=== PATIENT | male | born 1965 | race Caucasian/White ===

== ENCOUNTER 2017-12-21 21:05 | Emergency (ER) | payer OTHER ==
[2017-12-21 21:11] VITALS: BP 140/80; PULSE 73; RESP 16; TEMP 98.3
--- NOTE | 2017-12-21 22:05 | ED ---
General Adult HPI - General Chief complaint: Skin/Abscess/Foreign Body Stated complaint: poison rochelle Time Seen by Provider: 12/21/17 21:43 Source: patient, RN notes reviewed Mode of arrival: ambulatory Limitations: no limitations - History of Present Illness Initial comments: 52-year-old male presents to the emergency department for a chief complaint of rash 3 days. Patient states he was outside working in the [employer] and believes he has poison rochelle. Patient states the rash has been itching and his right arm has been swollen since last night. Patient states it is also somewhat on his face and abdomen. Patient denies any swelling of the lips tongue or throat. Patient denies any wheezing or difficulty breathing. Patient denies any fevers or chills at home. Patient has no other complaints at this time including shortness of breath, chest pain, abdominal pain, nausea or vomiting, headache, or visual changes. - Related Data Previous Rx's Medication Instructions Recorded Calamine/Zinc Oxide Lotion 1 applic TOPICAL TID PRN 14 Days 12/21/17 [Calamine Lotion] #1 bottle Cetirizine HCl [Zyrtec] 10 mg PO DAILY PRN #20 tab 12/21/17 hydrOXYzine HCL [Atarax] 25 mg PO HS PRN #20 tab 12/21/17 predniSONE See Taper PO DAILY 14 Days tablet 12/21/17 Allergies Allergy/AdvReac Type Severity Reaction Status Date / Time amoxicillin Allergy Rash/Hives Verified 12/21/17 21:11 Review of Systems ROS Statement: Those systems with pertinent positive or pertinent negative responses have been documented in the HPI. ROS Other: All systems not noted in ROS Statement are negative. Past Medical History Past Medical History: Hypertension History of Any Multi-Drug Resistant Organisms: None Reported Past Surgical History: No Surgical Hx Reported Past Psychological History: No Psychological Hx Reported Smoking Status: Current some day smoker Past Alcohol Use History: None Reported Past Drug Use History: None Reported General Exam Limitations: no limitations General appearance: alert, in no apparent distress Respiratory exam: Present: normal lung sounds bilaterally. Absent: respiratory distress, wheezes, rales, rhonchi, stridor Cardiovascular Exam: Present: regular rate, normal rhythm, normal heart sounds. Absent: systolic murmur, diastolic murmur, rubs, gallop, clicks Extremities exam: Present: full ROM (full ROM of right arm), normal capillary refill (Refill less than 2 seconds and radial pulse 2+ in the left upper extremity.). Absent: tenderness (no tenderness to the R arm.) Skin exam: Present: rash (Patient has a vesicular mildly edematous rash on the left forearm extending from below the elbow to above the wrist. Patient also has the vesicular lei bilateral cheeks and belt line. No erythema, spreading redness, or cellulitic changes noted. No purulent drainage or abscess. No signs of infection. ) Course Vital Signs 12/21/17 21:08 Temperature 98.3 F Pulse Rate 73 Respiratory 16 Rate Blood Pressure 140/80 O2 Sat by Pulse 97 Oximetry Medical Decision Making - Medical Decision Making 52-year-old male presents to the emergency determine for a chief complaint of poison rochelle 3 days. Patient states his right arm is slightly swollen. Patient states it has been itching. Patient denies any fevers or chills at home. Patient denies any purulent drainage from the right arm. The rash on the arms extends from below the elbow to above the right wrist. It is vesicular in appearance. Patient has full ROM of Right arm. There is no erythema, spreading redness, cellulitic changes, purulent drainage, or signs of infection noted on the right arm, face, or abdomen. Patient will be treated with the prednisone taper, antihistamines, and Calamine lotion. He was educated to monitor closely for any signs of infection or spreading redness, fever, or purulent drainage and to return if these occur. He will follow up with primary care in 1-2 days. Disposition Clinical Impression: Poison rochelle Disposition: HOME SELF-CARE Condition: Good Instructions: Poison Rochelle (ED) Additional Instructions: Please take prescription as directed. Please monitor for any worsening symptoms or signs of infection. Return to the emergency department if you notice any of these. Otherwise follow-up with primary care in 1-2 days. Prescriptions: Calamine/Zinc Oxide Lotion [Calamine Lotion] 1 applic TOPICAL TID PRN 14 Days # 1 bottle PRN Reason: Itching Cetirizine HCl [Zyrtec] 10 mg PO DAILY PRN #20 tab PRN Reason: Itching hydrOXYzine HCL [Atarax] 25 mg PO HS PRN #20 tab PRN Reason: Itching predniSONE See Taper PO DAILY 14 Days tablet Is patient prescribed a controlled substance at d/c from ED?: No Referrals: Cj Malloy MD [Primary Care Provider] - 1-2 days Time of Disposition: 22:01
== END 2017-12-21 22:50 | disposition home or self-care (01) ==
LOC: EC 21:05
DX: L23.7 Allergic contact dermatitis due to plants, except food (principal); F17.200 Nicotine dependence, unspecified, uncomplicated; Z88.0 Allergy status to penicillin
CPT/HCPCS: 99282

== ENCOUNTER 2019-05-30 11:12 | Day surgery (SDC) | payer BC, OTHER ==
[2019-05-30 11:37] VITALS: RESP 18; TEMP 98.3
[2019-05-30] MEDS ORDERED: LACTATED RINGERS 1,000 ML IV SCH (11:40)
[2019-05-30] MEDS ORDERED: LIDOCAINE 1% 20 ML VIAL (10MG/ML) FOR IV START INTRADERMA PRN (11:40)
[2019-05-30 11:52] VITALS: BMI 35.3
[2019-05-30] MEDS ORDERED: LIDOCAINE 1% 20 ML VIAL (10MG/ML) FOR IV START INTRADERMA ONE (11:52)
[2019-05-30] MEDS ORDERED: PROPOFOL 10 MG/ML 20 ML VIAL IV ONE (12:19)
--- NOTE | 2019-05-30 12:50 | P.PCN ---
Date of Procedure: 05/30/19 Description of Procedure: BRIEF HISTORY: Patient is a 54-year-old pleasant male scheduled for an elective colonoscopy as a part of screening for malignant neoplasm colon. No prior colonoscopy reported. No change in bowel habits, blood per rectum, abdominal pain or family history of colon cancer. PROCEDURE PERFORMED: Colonoscopy. PREOPERATIVE DIAGNOSIS: Screening for malignant neoplasm of the colon, no prior colonoscopy reported. ESTIMATED BLOOD LOSS: Minimal. IV sedation per Anesthesia. PROCEDURE: After informed consent was obtained, the patient, was brought into the endoscopy unit. IV sedation was administered by Anesthesia under continuous monitoring. Digital rectal examination was normal. Initially the Olympus CF-190 flexible video colonoscope was then inserted in the rectum, gradually advanced into the cecum without any difficulty. Careful examination was performed as the scope was gradually being withdrawn. Ileocecal valve and the appendiceal orifice were visualized and appeared normal. Prep was excellent. Mucosa of the cecum, ascending colon, transverse colon, descending colon, sigmoid colon, and rectum appeared normal. Diminutive 2 mm transverse colon polyp removed with cold forcep polypectomy. Diminutive 3 mm rectal polyp removed with cold forcep polypectomy. Flat irregular appearing fold completely removed with cold forcep polypectomy. Retroflexion was performed in the rectum and no lesions were seen. The patient tolerated the procedure well. IMPRESSION: Normal-appearing colon from rectum to cecum. 2 diminutive polyps from the transverse colon and rectum removed with cold forcep polypectomy. Irregular appearing fold completely removed with cold forcep polypectomy. RECOMMENDATIONS: Findings of this examination were discussed with the patient and his . Okay to resume diet. Okay to resume medications. Anticipate repeat colonoscopy in 3-5 years pending pathology from polypectomies and biopsies of fold.
[2019-05-30 13:05] VITALS: BP 116/75; PULSE 74
== END 2019-05-30 13:18 | disposition home or self-care (01) ==
LOC: ORWHC2ENDO 11:12
PROVIDERS: ATTEND Internal Medicine
DX: Z12.11 Encounter for screening for malignant neoplasm of colon (principal); D12.3 Benign neoplasm of transverse colon; D12.8 Benign neoplasm of rectum; K63.5 Polyp of colon; I10 Essential (primary) hypertension; F17.210 Nicotine dependence, cigarettes, uncomplicated; Z88.0 Allergy status to penicillin; Z79.899 Other long term (current) drug therapy; Z98.818 Other dental procedure status
CPT/HCPCS: 88305; 45380; J2704

== ENCOUNTER 2019-07-11 06:13 | Inpatient (IN) | payer BC, OTHER ==
[2019-07-11] MEDS ORDERED: SODIUM CHLORIDE 0.9% 500 ML 500 ML IV STA (06:33)
[2019-07-11] MEDS ORDERED: HYDROmorphone 0.5 MG/0.5 ML SYRINGE IVP STA ×2 (06:37→07:53)
--- NOTE | 2019-07-11 06:39 | ED ---
General Adult HPI - General Source: patient, RN notes reviewed Mode of arrival: ambulatory Limitations: no limitations <Juventino Franco - Last Filed: 07/11/19 07:56> <Sofia Singh - Last Filed: 07/11/19 22:48> - General Chief complaint: Abdominal Pain Stated complaint: NVD Time Seen by Provider: 07/11/19 06:25 - History of Present Illness Initial comments: 54-year-old male with a past medical history of hypertension presents to the emergency department for a chief complaint of epigastric pain. Patient states this started about 1.5 hours prior to arrival. States he does have associated nausea with this. States he has never had a pain like this before. He denies diarrhea. States his sharp squeezing pain. States it is hard to take a deep breath because of the pain.Patient has no other complaints at this time including shortness of breath, chest pain, headache, or visual changes. (Juventino Soler) - Related Data Home Medications Medication Instructions Recorded Confirmed Lisinopril-Hctz 10-12.5 mg 1 tab PO DAILY 05/30/19 07/11/19 [Zestoretic 10-12.5] Multivitamins, Thera [Multivitamin 1 tab PO DAILY 07/11/19 07/11/19 (formulary)] Allergies Allergy/AdvReac Type Severity Reaction Status Date / Time amoxicillin Allergy Rash/Hives Verified 07/11/19 08:00 Review of Systems ROS Other: All systems not noted in ROS Statement are negative. <Juventino Franco - Last Filed: 07/11/19 07:56> ROS Other: All systems not noted in ROS Statement are negative. <Sofia Singh - Last Filed: 07/11/19 22:48> ROS Statement: Those systems with pertinent positive or pertinent negative responses have been documented in the HPI. Past Medical History Past Medical History: Hearing Disorder / Deafness, Hypertension Additional Past Medical History / Comment(s): HAD A HEART MURMUR WHEN A CHILD- NEVER HEARD ANYTHING AFTER THAT ABOUT IT, SL. HEARLING LOSS YAMILA. EARS History of Any Multi-Drug Resistant Organisms: None Reported Past Surgical History: No Surgical Hx Reported Additional Past Surgical History / Comment(s): TEETH PULLED W/O SEDATION SEVERAL TIMES THROUGHOUT THE YEARS Past Psychological History: No Psychological Hx Reported Smoking Status: Current some day smoker Past Alcohol Use History: Occasional Past Drug Use History: None Reported <SalvadorJuventino ríos P - Last Filed: 07/11/19 07:56> General Exam Limitations: no limitations General appearance: alert Head exam: Present: atraumatic, normocephalic, normal inspection Eye exam: Present: normal appearance, PERRL, EOMI. Absent: scleral icterus, conjunctival injection, periorbital swelling ENT exam: Present: normal exam, mucous membranes moist Neck exam: Present: normal inspection, full ROM. Absent: tenderness, meningismus, lymphadenopathy Respiratory exam: Present: normal lung sounds bilaterally. Absent: respiratory distress, wheezes, rales, rhonchi, stridor Cardiovascular Exam: Present: regular rate, normal rhythm, normal heart sounds. Absent: systolic murmur, diastolic murmur, rubs, gallop, clicks GI/Abdominal exam: Present: soft, normal bowel sounds. Absent: distended, tenderness, guarding, rebound, rigid Neurological exam: Present: alert Psychiatric exam: Present: normal affect, normal mood <SalvadorKearaJuventino P - Last Filed: 07/11/19 07:56> Course <SalvadorJuventino P - Last Filed: 07/11/19 07:56> Vital Signs 07/11/19 07/11/19 07/11/19 06:16 07:00 07:45 Temperature 98.5 F Pulse Rate 91 82 Respiratory 30 H 24 Rate Blood Pressure 176/154 141/88 O2 Sat by Pulse 94 L 96 96 Oximetry 07/11/19 07/11/19 07/11/19 08:00 08:32 09:00 Temperature 97.6 F Pulse Rate 73 70 66 Respiratory 22 22 20 Rate Blood Pressure 137/90 126/81 122/81 O2 Sat by Pulse 96 96 96 Oximetry 07/11/19 11:00 Temperature Pulse Rate 63 Respiratory 18 Rate Blood Pressure 124/77 O2 Sat by Pulse 97 Oximetry - Reevaluation(s) Reevaluation #1: 07/11/19 5041 patient was evaluated immediately upon arrival. Patient is in distress rating pain a 10 out of 10. Epigastric pain radiating into the chest. Patient is very diaphoretic and clammy, cannot obtain EKG because stickers will not adhere. abdomen is rigid. Patient stating he cannot breathe because of the discomfort radiating to his chest. Discussed this case with Dr. Vázquez, at this time given the patient's degree of distress as well as diaphoresis and epigastric pain radiating into the chest CTA was ordered to rule out dissection. (Juventino Franco) EKG Findings - EKG Comments: EKG Findings:: normal sinus rhythm, ventricular rate 79, NJ interval 156, QTc 467 <Juventino Franco - Last Filed: 07/11/19 07:56> Medical Decision Making - Lab Data Result diagrams: 07/11/19 06:30 07/11/19 06:30 <Juventino Franco - Last Filed: 07/11/19 07:56> - Lab Data Result diagrams: 07/11/19 06:30 07/11/19 06:30 <Sofia Singh - Last Filed: 07/11/19 22:48> - Medical Decision Making Patient arrived very diaphoretic, hypertensive and in distress with a rigid abdomen and chest pain. CTA was ordered to rule out dissection.CT abdomen and pelvis shows moderate. Pancreatic fat stranding/fluid suggestive of acute pancreatitis. No fluid collection. There is cholelithiasis in a distended gallbladder was called but her wall thickening and edema. Could be reactive to adjacent pancreatic pathology however findings are concerning for concurrent acute cholecystitis. This is consistent with patient's laboratory workup a white count of 13, transaminitis, hyperbilirubinemia, and a lipase of greater than 20,000 with an amylase of 2794. Troponin negative. EKG unremarkable. Patient has a penicillin ALLERGY, was started on Flagyl and Rocephin.ultrasound will be ordered for the floor. (Juventino Franco) I was available for consultation in the emergency department. The history and physical exam were done by the midlevel provider. I was consulted for this patients care. I reviewed the case with the midlevel provider and based on their presentation of the patient, I agree with the assessment, medical decision making and plan of care as documented. I agreed with hospital admission. I discussed the case with Dr. Lopez who accepted admission with GI and surgery to consult. Chart was dictated using [employer]rap[employer] dictation software. Attempts were made to correct any dictation errors however some typographical errors may persist. (Sofia Singh) - Lab Data Lab Results 07/11/19 07/11/19 07/11/19 Range/Units 06:30 06:30 06:30 WBC 13.0 H (3.8-10.6) k/uL RBC 5.75 (4.30-5.90) m/uL Hgb 18.4 H (13.0-17.5) gm/dL Hct 53.4 H (39.0-53.0) % MCV 93.0 (80.0-100.0) fL MCH 31.9 (25.0-35.0) pg MCHC 34.4 (31.0-37.0) g/dL RDW 12.9 (11.5-15.5) % Plt Count 259 (150-450) k/uL Neutrophils % 65 % Lymphocytes % 26 % Monocytes % 6 % Eosinophils % 2 % Basophils % 0 % Neutrophils # 8.5 H (1.3-7.7) k/uL Lymphocytes # 3.4 (1.0-4.8) k/uL Monocytes # 0.7 (0-1.0) k/uL Eosinophils # 0.2 (0-0.7) k/uL Basophils # 0.1 (0-0.2) k/uL PT 9.7 (9.0-12.0) sec INR 0.9 (<1.2) APTT 19.2 L (22.0-30.0) sec Sodium 143 (137-145) mmol/L Potassium 4.3 (3.5-5.1) mmol/L Chloride 107 (98-107) mmol/L Carbon Dioxide 22 (22-30) mmol/L Anion Gap 14 mmol/L BUN 25 H (9-20) mg/dL Creatinine 1.16 (0.66-1.25) mg/dL Est GFR (CKD-EPI)AfAm 83 (>60 ml/min/1.73 sqM) Est GFR (CKD-EPI)NonAf 72 (>60 ml/min/1.73 sqM) Glucose 200 H (74-99) mg/dL Calcium 9.9 (8.4-10.2) mg/dL Magnesium 2.3 (1.6-2.3) mg/dL Total Bilirubin 2.9 H (0.2-1.3) mg/dL AST 440 H (17-59) U/L ALT 574 H (21-72) U/L Alkaline Phosphatase 110 (38-126) U/L Troponin I (0.000-0.034) ng/mL NT-Pro-B Natriuret Pep pg/mL Total Protein 7.4 (6.3-8.2) g/dL Albumin 4.8 (3.5-5.0) g/dL Amylase 2794 H* (30-110) U/L Lipase >73544 H (23-300) U/L 07/11/19 07/11/19 Range/Units 06:30 06:30 WBC (3.8-10.6) k/uL RBC (4.30-5.90) m/uL Hgb (13.0-17.5) gm/dL Hct (39.0-53.0) % MCV (80.0-100.0) fL MCH (25.0-35.0) pg MCHC (31.0-37.0) g/dL RDW (11.5-15.5) % Plt Count (150-450) k/uL Neutrophils % % Lymphocytes % % Monocytes % % Eosinophils % % Basophils % % Neutrophils # (1.3-7.7) k/uL Lymphocytes # (1.0-4.8) k/uL Monocytes # (0-1.0) k/uL Eosinophils # (0-0.7) k/uL Basophils # (0-0.2) k/uL PT (9.0-12.0) sec INR (<1.2) APTT (22.0-30.0) sec Sodium (137-145) mmol/L Potassium (3.5-5.1) mmol/L Chloride (98-107) mmol/L Carbon Dioxide (22-30) mmol/L Anion Gap mmol/L BUN (9-20) mg/dL Creatinine (0.66-1.25) mg/dL Est GFR (CKD-EPI)AfAm (>60 ml/min/1.73 sqM) Est GFR (CKD-EPI)NonAf (>60 ml/min/1.73 sqM) Glucose (74-99) mg/dL Calcium (8.4-10.2) mg/dL Magnesium (1.6-2.3) mg/dL Total Bilirubin (0.2-1.3) mg/dL AST (17-59) U/L ALT (21-72) U/L Alkaline Phosphatase (38-126) U/L Troponin I <0.012 (0.000-0.034) ng/mL NT-Pro-B Natriuret Pep 1040 pg/mL Total Protein (6.3-8.2) g/dL Albumin (3.5-5.0) g/dL Amylase (30-110) U/L Lipase (23-300) U/L Disposition Is patient prescribed a controlled substance at d/c from ED?: No Time of Disposition: 07:48 <Juventino Franco P - Last Filed: 07/11/19 07:56> <Sofia Singh - Last Filed: 07/11/19 22:48> Clinical Impression: Pancreatitis Disposition: ADMITTED IP TO THIS HOSP Condition: Fair
[2019-07-11 06:52] LABS: Basophils # (A) 0.1 k/uL (0-0.2); Basophils % (A) 0 %; Eosinophils # (A) 0.2 k/uL (0-0.7); Eosinophils % (A) 2 %; HCT 53.4 % (39.0-53.0); HGB 18.4 gm/dL (13.0-17.5); Lymphocytes # (A) 3.4 k/uL (1.0-4.8); Lymphocytes % (A) 26 %; MCH 31.9 pg (25.0-35.0); MCHC 34.4 g/dL (31.0-37.0); Mean Platelet Volume 7.7; Monocytes # (A) 0.7 k/uL (0-1.0); Monocytes % (A) 6 %; Neutrophils # (A) 8.5 k/uL (1.3-7.7); Neutrophils % (A) 65 %; Platelet Count 259 k/uL (150-450); RBC 5.75 m/uL (4.30-5.90); RDW 12.9 % (11.5-15.5)
[2019-07-11 06:56] LABS: INR 0.9 (<1.2); Prothrombin Time 9.7 sec (9.0-12.0)
[2019-07-11 06:57] LABS: ALT 574 U/L (21-72); AST 440 U/L (17-59); African American GFR (CKD) 83 (>60 ml/min/1.73 sqM); Albumin 4.8 g/dL (3.5-5.0); Alkaline Phosphatase 110 U/L (38-126); Anion Gap 14 mmol/L; Blood Urea Nitrogen 25 mg/dL (9-20); Calcium 9.9 mg/dL (8.4-10.2); Carbon Dioxide 22 mmol/L (22-30); Chloride 107 mmol/L (98-107); Glucose 200 mg/dL (74-99); Magnesium 2.3 mg/dL (1.6-2.3); Non-African American GFR(CKD) 72 (>60 ml/min/1.73 sqM); Potassium 4.3 mmol/L (3.5-5.1); Sodium 143 mmol/L (137-145); Total Bilirubin 2.9 mg/dL (0.2-1.3); Total Protein 7.4 g/dL (6.3-8.2)
[2019-07-11] MEDS ORDERED: ONDANSETRON 4 MG/2 ML VIAL IVP STA (07:07)
[2019-07-11 07:21] LABS: Partial Thromboplastin Time 19.2 sec (22.0-30.0)
[2019-07-11] MEDS ORDERED: SODIUM CHLORIDE 0.9% 1,000 ML IV STA (07:26)
--- NOTE | 2019-07-11 07:26 | CT ---
EXAM: CT Angiography Chest Without and With Intravenous Contrast CLINICAL HISTORY: epigastric pain TECHNIQUE: Axial computed tomographic angiography images of the chest without and with intravenous contrast. CTDI is 57.584 mGy and DLP is 2599.8 mGy-cm. This CT exam was performed using one or more of the following dose reduction techniques: automated exposure control, adjustment of the mA and/or kV according to patient size, and/or use of iterative reconstruction technique. 3D and MIP reconstructed images were created and reviewed. COMPARISON: No relevant prior studies available. FINDINGS: Pulmonary arteries: Unremarkable. No pulmonary embolism. Aorta: No acute findings. No thoracic aortic aneurysm. Lungs: Linear atelectasis involving the left lower lobe. No mass. Pleural space: Unremarkable. No significant effusion. No pneumothorax. Heart: Unremarkable. No cardiomegaly. No significant pericardial effusion. No evidence of RV dysfunction. Mediastinum: Small hiatal hernia. Bones/joints: No acute fracture. No dislocation. Soft tissues: Bilateral gynecomastia. Lymph nodes: Unremarkable. No enlarged lymph nodes. IMPRESSION: No acute findings in the visualized arteries of the chest. EXAM: CT Angiography Abdomen and Pelvis Without and With Intravenous Contrast CLINICAL HISTORY: epigastric pain TECHNIQUE: Axial computed tomographic angiography images of the abdomen and pelvis without and with intravenous contrast. CTDI is 57.584 mGy and DLP is 2599.8 mGy-cm. This CT exam was performed using one or more of the following dose reduction techniques: automated exposure control, adjustment of the mA and/or kV according to patient size, and/or use of iterative reconstruction technique. 3D and MIP reconstructed images were created and reviewed. COMPARISON: No relevant prior studies available. FINDINGS: VASCULATURE: Aorta: No acute findings. No abdominal aortic aneurysm. No dissection. Celiac trunk and mesenteric arteries: No acute findings. No occlusion or significant stenosis. Renal arteries: No acute findings. No occlusion or significant stenosis. Iliac arteries: No acute findings. No occlusion or significant stenosis. ABDOMEN: Liver: Unremarkable. No mass. Gallbladder and bile ducts: Cholelithiasis in a distended gallbladder with gallbladder wall thickening/edema. While this may be reactive to the adjacent pancreatic pathology, findings are concerning for concurrent acute cholecystitis. No ductal dilation. Pancreas: Moderate peripancreatic fat stranding/fluid suggestive of acute pancreatitis. No ductal dilation. Spleen: Spleen is at upper limits of normal, of unknown significance. Adrenals: Unremarkable. No mass. Kidneys and ureters: A 2 mm nonobstructing stone is seen in the lower pole of the right kidney. Stomach and bowel: Unremarkable. No obstruction. No mucosal thickening. PELVIS: Appendix: No findings to suggest acute appendicitis. Bladder: Unremarkable. No stones. No mass. Reproductive: Unremarkable as visualized. ABDOMEN and PELVIS: Intraperitoneal space: Unremarkable. No significant fluid collection. No free air. Bones/joints: No acute fracture. No dislocation. Soft tissues: Unremarkable. Lymph nodes: Unremarkable. No enlarged lymph nodes. IMPRESSION: 1. Moderate peripancreatic fat stranding/fluid suggestive of acute pancreatitis. No fluid collection. 2. Cholelithiasis in a distended gallbladder with gallbladder wall thickening/edema. While this may be reactive to the adjacent pancreatic pathology, findings are concerning for concurrent acute cholecystitis. Correlate clinically. <MYCVCSECTION> Communications: 07/11/19 07:11 Call Doctor Regarding Other, called ARRON Jauregui on 07/11 07: 11 (-05:00)
[2019-07-11 07:37] LABS: Amylase 2794 U/L (30-110)
[2019-07-11] MEDS ORDERED: KETOROLAC 30 MG/ML 1 ML VIAL IVP STA (07:52)
[2019-07-11] MEDS ORDERED: NALOXONE 0.4 MG/ML 1 ML VIAL IV PRN (07:53)
[2019-07-11] MEDS ORDERED: HYDROmorphone 0.5 MG/0.5 ML SYRINGE IVP PRN (07:53)
[2019-07-11] MEDS: SODIUM CHLORIDE 0.9% 1,000 ML IV SCH ×3 (08:09→23:39)
--- NOTE | 2019-07-11 09:01 | US ---
EXAMINATION TYPE: US abdomen limited DATE OF EXAM: 07/11/2019 COMPARISON: NONE CLINICAL HISTORY: RUQ, GB. EXAM MEASUREMENTS: Liver Length: 17.4 cm Gallbladder Wall: 0.8 cm CBD: 0.5 cm Right Kidney: unable to visualize well enough to measure due to overlying bowel gas Patient in pain and unable to cooperate with examiner. Only able to visualize organs intercostal. Pancreas: Obscured by bowel gas Liver: very limited visualization, upper limits of normal in size and the echotexture is coarse Gallbladder: thickened edematous wall, stones, probable pericholecystic fluid noted adjacent. Evidence for sonographic Quezada's sign: patient in a lot of pain, hard to say where from specifica lly CBD: wnl Right Kidney: largely obscured by overlying bowel gas, very limited visualization IMPRESSION: Findings from CT confirmed, correlate for cholecystitis with cholelithiasis. Pancreas is obscured. Borderline enlarged liver, there may be a component of hepatocellular disease.
[2019-07-11] MEDS: metroNIDAZOLE-NS PMX 500 MG in SALINE 1 100ML.BAG IVPB SCH ×3 (09:02→23:37)
[2019-07-11] MEDS ORDERED: SODIUM CHLORIDE 0.9% 1,000 ML IV ONE (11:56)
[2019-07-11] MEDS: HYDROmorphone 0.5 MG/0.5 ML SYRINGE IVP PRN ×4 (12:11→21:09)
--- NOTE | 2019-07-11 14:47 | P.GSCN ---
History of Present Illness Consult date: 07/11/19 Reason for Consult: Possible acute cholecystitis Requesting physician: Juventino Franco History of present illness: CHIEF COMPLAINT: Abdominal pain HISTORY OF PRESENT ILLNESS: 54-year-old male who presented to the emergency room for chief complaint of abdominal pain. Patient reports the pain is located in the epigastric region and radiates to his back. He reports nausea. Denies emesis. Denies diarrhea or constipation. Denies fever or chills. PAST MEDICAL HISTORY: See list. PAST SURGICAL HISTORY: See list. SOCIAL HISTORY: No illicit drug use. REVIEW OF SYSTEMS: CONSTITUTIONAL: Denies fever or chills. HEENT: Denies blurred vision, vision changes, or eye pain. Denies hemoptysis CARDIOVASCULAR: Denies chest pain or pressure. RESPIRATORY: No shortness of breath. GASTROINTESTINAL: Refer to HPI for pertinent findings HEMATOLOGIC: Denies bleeding disorders. GENITOURINARY: Denies any blood in urine. SKIN: Denies pruitis. Denies rash. PHYSICAL EXAM: VITAL SIGNS: Reviewed. GENERAL: Well-developed in no acute distress. HEENT: No sclera icterus. Extraocular movements grossly intact. Moist buccal mucosa. Head is atraumatic, normocephalic. ABDOMEN: Soft. Nondistended. Tenderness on palpation of the epigastric region. No peritonitis. NEUROLOGIC: Alert and oriented. Cranial nerves II through XII grossly intact. LABORATORY DATA: WBC 13.0. Hemoglobin 18.4. Platelet count 259. Bilirubin 2.9. AST 440. ALT 574. Amylase 2794. Lipase greater than 20,000. IMAGING: Abdominal ultrasound: Thickened edematous gallbladder wall, cholelithiasis, probable pericholecystic fluid. Positive sonographic Quezada sign. ASSESSMENT: 1. Abdominal pain 2. Cholelithiasis, Possible choledocholithiasis 3. Pancreatitis 4. Hyperbilirubinemia 5. Transaminitis PLAN: -Nothing by mouth -1 L normal saline bolus -Increase IV fluids to 200 mL an hour -GI on consult. Anticipate MRCP/ERCP -Repeat CBC and CMP in a.m. -Continue IV antibiotics -Patient tentatively scheduled for laparoscopic cholecystectomy tomorrow pending laboratory values Nurse practitioner note has been reviewed by physician. Signing provider agrees with the documented findings, assessment, and plan of care. Past Medical History Past Medical History: Hearing Disorder / Deafness, Hypertension Additional Past Medical History / Comment(s): HAD A HEART MURMUR WHEN A CHILD- NEVER HEARD ANYTHING AFTER THAT ABOUT IT, SL. HEARLING LOSS YAMILA. EARS History of Any Multi-Drug Resistant Organisms: None Reported Past Surgical History: No Surgical Hx Reported Additional Past Surgical History / Comment(s): Colonoscopy with benign polypectomy Past Anesthesia/Blood Transfusion Reactions: No Reported Reaction Smoking Status: Current some day smoker - Past Family History Father Family Medical History: Coronary Artery Disease (CAD) Additional Family Medical History / Comment(s): Father had 4 vessel CABG Mother Family Medical History: Hypertension Medications and Allergies Home Medications Medication Instructions Recorded Confirmed Type Lisinopril-Hctz 10-12.5 mg 1 tab PO DAILY 05/30/19 07/11/19 History [Zestoretic 10-12.5] Multivitamins, Thera [Multivitamin 1 tab PO DAILY 07/11/19 07/11/19 History (formulary)] Allergies Allergy/AdvReac Type Severity Reaction Status Date / Time amoxicillin Allergy Rash/Hives Verified 07/11/19 08:00 Surgical - Exam Vital Signs Temp Pulse Resp BP Pulse Ox 98.5 F 91 30 H 176/154 94 L 07/11/19 06:16 07/11/19 06:16 07/11/19 06:16 07/11/19 06:16 07/11/19 06:16 Results - Labs 07/11/19 06:30 07/11/19 06:30 Abnormal Lab Results - Last 24 Hours (Table) 07/11/19 07/11/19 07/11/19 Range/Units 06:30 06:30 06:30 WBC 13.0 H (3.8-10.6) k/uL Hgb 18.4 H (13.0-17.5) gm/dL Hct 53.4 H (39.0-53.0) % Neutrophils # 8.5 H (1.3-7.7) k/uL APTT 19.2 L (22.0-30.0) sec BUN 25 H (9-20) mg/dL Glucose 200 H (74-99) mg/dL Total Bilirubin 2.9 H (0.2-1.3) mg/dL AST 440 H (17-59) U/L ALT 574 H (21-72) U/L Amylase 2794 H* (30-110) U/L Lipase >27939 H (23-300) U/L Diabetes panel 07/11/19 Range/Units 06:30 Sodium 143 (137-145) mmol/L Potassium 4.3 (3.5-5.1) mmol/L Chloride 107 (98-107) mmol/L Carbon Dioxide 22 (22-30) mmol/L BUN 25 H (9-20) mg/dL Creatinine 1.16 (0.66-1.25) mg/dL Glucose 200 H (74-99) mg/dL Calcium 9.9 (8.4-10.2) mg/dL AST 440 H (17-59) U/L ALT 574 H (21-72) U/L Alkaline Phosphatase 110 (38-126) U/L Total Protein 7.4 (6.3-8.2) g/dL Albumin 4.8 (3.5-5.0) g/dL Calcium panel 07/11/19 Range/Units 06:30 Calcium 9.9 (8.4-10.2) mg/dL Albumin 4.8 (3.5-5.0) g/dL Pituitary panel 07/11/19 Range/Units 06:30 Sodium 143 (137-145) mmol/L Potassium 4.3 (3.5-5.1) mmol/L Chloride 107 (98-107) mmol/L Carbon Dioxide 22 (22-30) mmol/L BUN 25 H (9-20) mg/dL Creatinine 1.16 (0.66-1.25) mg/dL Glucose 200 H (74-99) mg/dL Calcium 9.9 (8.4-10.2) mg/dL Adrenal panel 07/11/19 Range/Units 06:30 Sodium 143 (137-145) mmol/L Potassium 4.3 (3.5-5.1) mmol/L Chloride 107 (98-107) mmol/L Carbon Dioxide 22 (22-30) mmol/L BUN 25 H (9-20) mg/dL Creatinine 1.16 (0.66-1.25) mg/dL Glucose 200 H (74-99) mg/dL Calcium 9.9 (8.4-10.2) mg/dL Total Bilirubin 2.9 H (0.2-1.3) mg/dL AST 440 H (17-59) U/L ALT 574 H (21-72) U/L Alkaline Phosphatase 110 (38-126) U/L Total Protein 7.4 (6.3-8.2) g/dL Albumin 4.8 (3.5-5.0) g/dL
[2019-07-11] MEDS ORDERED: KETOROLAC 30 MG/ML 1 ML VIAL IVP PRN (16:06)
[2019-07-11] MEDS ORDERED: KETOROLAC 30 MG/ML 1 ML VIAL IVP SCH (18:00)
[2019-07-11] MEDS: HYDROmorphone 2 MG/ML 1 ML SYRINGE IVP PRN (22:06)
--- NOTE | 2019-07-12 00:18 | P.HPIM ---
History of Present Illness H&P Date: 07/11/19 Chief Complaint: Abdominal pain History of presenting complaint: This is a pleasant [address]. [address] Dr[address] Malloy. Patient for about 2 years has had episodes of upper abdominal epigastric pain lasted for about half an hour. The pain does up to present to become severe within relaxes. Started off about 2 years ago when he states the frequency is increased. More so frequently in the last 2 weeks. Especially yesterday morning patient became rather severe. Epigastric. Started having nausea vomiting. Had fever or chills. Also been getting heartburn. Patient drinks about 12 beers over the weekend. Otherwise in good health. at the bedside. Review of systems: GEN.: Fever or chills EYES: None HEENT: None NECK: None RESPIRATORY: None CARDIOVASCULAR: None GASTROINTESTINAL: [As above GENITOURINARY: None MUSCULOSKELETAL: None LYMPHATICS: None HEMATOLOGICAL: None PSYCHIATRY: None NEUROLOGICAL: None Social history: Does smoke cigars occasionally. Drinks about 12 pack over the weekend. 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 . Physical examination: VITAL SIGNS: 98.5, 91, 24, 141/88, 96% on 2 L GENERAL: BMI 34.4, laying in bed awake. EYES: Pupils equal. Conjunctiva normal. HEENT: External appearance of nose and ears normal, oral cavity grossly normal. NECK: JVD not raised; masses not palpable. HEART: First and second heart sounds are normal; no edema. LUNGS: Respiratory rate normal; clear to auscultation. ABDOMEN: Soft, upper abdominal tenderness, no guarding or rigidity, liver spleen not palpable, no masses palpable. PSYCH: Alert and oriented x3; mood and affect normal. NEUROLOGICAL: Cranial nerves grossly intact; no facial asymmetry, power and sensation grossly intact. LYMPHATICS: No lymph nodes palpable in the axilla and neck INVESTIGATIONS, reviewed in the clinical context: White count 13 hemoglobin 18.4 pressures to 59 progression 4.3 crit 1.16 Total bilirubin 2.9 AST 440 ALT 574 Amylase 2794, lipase greater than 20,000 Computed tomography scan-moderate peripancreatic fat stranding, gallstones and a distended gallbladder with gallbladder wall thickening. Abdominal ultrasound-gallbladder thickening with intermittent small stones. Pericholecystic fluid EKG tracing-personally reviewed by me shows normal sinus rhythm nonspecific T- wave changes Assessment: -Acute cholecystitis secondary to choledocholithiasis, with early manifestation of possible ascending cholangitis -Acute gallstone pancreatitis -Essential hypertension -Obesity BMI 34.4 Plan: Both surgery and GI were consulted. With review to possible ERCP. Patient also in IV ceftriaxone. Lovenox for DVT prophylaxis. Pain control was placed. Getting IV fluids. Care was discussed with the patient and and questions were answered. Past Medical History Past Medical History: Hearing Disorder / Deafness, Hypertension Additional Past Medical History / Comment(s): HAD A HEART MURMUR WHEN A CHILD- NEVER HEARD ANYTHING AFTER THAT ABOUT IT, SL. HEARLING LOSS YAMILA. EARS History of Any Multi-Drug Resistant Organisms: None Reported Past Surgical History: No Surgical Hx Reported Additional Past Surgical History / Comment(s): Colonoscopy with benign polypectomy Past Anesthesia/Blood Transfusion Reactions: No Reported Reaction Smoking Status: Current some day smoker - Past Family History Father Family Medical History: Coronary Artery Disease (CAD) Additional Family Medical History / Comment(s): Father had 4 vessel CABG Mother Family Medical History: Hypertension Medications and Allergies Home Medications Medication Instructions Recorded Confirmed Type Lisinopril-Hctz 10-12.5 mg 1 tab PO DAILY 05/30/19 07/11/19 History [Zestoretic 10-12.5] Multivitamins, Thera [Multivitamin 1 tab PO DAILY 07/11/19 07/11/19 History (formulary)] Allergies Allergy/AdvReac Type Severity Reaction Status Date / Time amoxicillin Allergy Rash/Hives Verified 07/11/19 08:00 Physical Exam Vitals: Vital Signs Temp Pulse Pulse Resp BP BP Pulse Ox 07/11/19 21:00 97.5 F L 113 H 16 153/116 81 L 07/11/19 12:12 97.4 F L 68 17 163/92 91 L 07/11/19 11:00 63 18 124/77 97 07/11/19 09:00 66 20 122/81 96 07/11/19 08:32 97.6 F 70 22 126/81 96 07/11/19 08:00 73 22 137/90 96 07/11/19 07:45 82 24 141/88 96 07/11/19 07:00 96 07/11/19 06:16 98.5 F 91 30 H 176/154 94 L Intake and Output 07/11/19 07/11/19 07/12/19 14:59 22:59 06:59 Intake Total 1000 800 Balance 1000 800 Intake: Intake, IV Titration 1000 800 Amount Sodium Chloride 0.9% 1, 800 000 ml @ 200 mls/hr IV . Q5H [facility] Rx#:[id number] Sodium Chloride 0.9% 1, 1000 000 ml @ 999 mls/hr IV . Q1H1M [facility] Rx#:[id number] Other: # Voids 2 Weight 115.212 kg Results CBC & Chem 7: 07/11/19 06:30 07/11/19 06:30 Labs: Abnormal Lab Results - Last 24 Hours (Table) 07/11/19 07/11/19 07/11/19 Range/Units 06:30 06:30 06:30 WBC 13.0 H (3.8-10.6) k/uL Hgb 18.4 H (13.0-17.5) gm/dL Hct 53.4 H (39.0-53.0) % Neutrophils # 8.5 H (1.3-7.7) k/uL APTT 19.2 L (22.0-30.0) sec BUN 25 H (9-20) mg/dL Glucose 200 H (74-99) mg/dL Total Bilirubin 2.9 H (0.2-1.3) mg/dL AST 440 H (17-59) U/L ALT 574 H (21-72) U/L Amylase 2794 H* (30-110) U/L Lipase >73951 H (23-300) U/L Thrombosis Risk Factor Assmnt - Choose All That Apply Any of the Below Risk Factors Present?: Yes Each Factor Represents 1 point: Age 41-60 years, Obesity (BMI >25) Other Risk Factors: No Other congenital or acquired thrombophilia - If yes, enter type in comment: No Thrombosis Risk Factor Assessment Total Risk Factor Score: 2 Thrombosis Risk Factor Assessment Level: Low Risk
[2019-07-12] MEDS: HYDROmorphone 2 MG/ML 1 ML SYRINGE IVP PRN ×5 (01:03→18:57)
[2019-07-12] MEDS: SODIUM CHLORIDE 0.9% 1,000 ML IV SCH ×3 (04:09→15:19)
[2019-07-12 08:01] LABS: Basophils % (A) 0 %; Eosinophils % (A) 0 %; HGB 18.7 gm/dL (13.0-17.5); Lymphocytes # (A) 0.5 k/uL (1.0-4.8); Lymphocytes % (A) 2 %; MCH 32.2 pg (25.0-35.0); MCHC 32.4 g/dL (31.0-37.0); MCV 99.2 fL (80.0-100.0); Mean Platelet Volume 8.3; Monocytes # (A) 1.1 k/uL (0-1.0); Monocytes % (A) 5 %; Neutrophils # (A) 22.3 k/uL (1.3-7.7); Neutrophils % (A) 93 %; Platelet Count 170 k/uL (150-450); WBC 24.1 k/uL (3.8-10.6)
--- NOTE | 2019-07-12 08:02 | P.CONS ---
History of Present Illness - Reason for Consult Consult date: 07/11/19 Pancreatitis Requesting physician: Fadi Lopez - Chief Complaint Abdominal pain - History of Present Illness 54-year-old male patient with a medical history significant for hypertension who presented to the hospital with complaints of abdominal pain. Per the history from the patient he has had intermittent episodes of abdominal pain occurring over the past few years. He reports that the current episode has been persistent, severe, in the epigastric region of his abdomen and waxing and waning in density. He feels that the episodes of pain have been occurring more frequently over the past 2 weeks. The patient reports associated nausea and vomiting with the episode. He does report alcohol use over the weekend but denies any regular excessive alcohol use. He denies any prior episodes of pancreatitis. He denies any significant family history. On presentation he was found to have a total bilirubin of 2.9, alkaline phosphatase 110, AST 440 and ALT 574 with a WBC 13, hemoglobin 18.4, platelet count 259,000. Amylase and lipase found to be significantly elevated. CT scan performed was significant for cholelithiasis, a distended gallbladder without evidence of ductal dilation. Review of Systems REVIEW OF SYSTEMS: CONSTITUTIONAL: Denies any fevers, chills, weight change or fatigue. CARDIOVASCULAR: Denies any chest pain, palpitations high or low blood pressures, but did report 2 syncopal episodes prior to presentation RESPIRATORY: Denies any shortness of breath, hemoptysis or cough. GENITOURINARY: No dysuria or hematuria. MUSCULOSKELETAL: No weakness reported. SKIN: Denies any new rashes or lesions, jaundice or pallor. PSYCHIATRIC: Denies any depression or anxiety. NEUROLOGY: Denies headache, denies any new focal deficits. EARS/NOSE/THROAT: No recent hearing change but impaired at baseline, No congestion, nasal discharge or sore throat. EYES: No pain in eyes, discharge or change in vision. GASTROINTESTINAL: As per HPI. Past Medical History Past Medical History: Hearing Disorder / Deafness, Hypertension Additional Past Medical History / Comment(s): HAD A HEART MURMUR WHEN A CHILD- NEVER HEARD ANYTHING AFTER THAT ABOUT IT, SL. HEARLING LOSS YAMILA. EARS History of Any Multi-Drug Resistant Organisms: None Reported Past Surgical History: No Surgical Hx Reported Additional Past Surgical History / Comment(s): Colonoscopy with benign polypectomy Past Anesthesia/Blood Transfusion Reactions: No Reported Reaction Smoking Status: Current some day smoker - Past Family History Father Family Medical History: Coronary Artery Disease (CAD) Additional Family Medical History / Comment(s): Father had 4 vessel CABG Mother Family Medical History: Hypertension Medications and Allergies Home Medications Medication Instructions Recorded Confirmed Type Lisinopril-Hctz 10-12.5 mg 1 tab PO DAILY 05/30/19 07/11/19 History [Zestoretic 10-12.5] Multivitamins, Thera [Multivitamin 1 tab PO DAILY 07/11/19 07/11/19 History (formulary)] Allergies Allergy/AdvReac Type Severity Reaction Status Date / Time amoxicillin Allergy Rash/Hives Verified 07/11/19 08:00 Physical Exam Vitals: Vital Signs Temp Pulse Pulse Resp BP BP Pulse Ox 07/11/19 12:12 97.4 F L 68 17 163/92 91 L 07/11/19 11:00 63 18 124/77 97 07/11/19 09:00 66 20 122/81 96 07/11/19 08:32 97.6 F 70 22 126/81 96 07/11/19 08:00 73 22 137/90 96 07/11/19 07:45 82 24 141/88 96 07/11/19 07:00 96 07/11/19 06:16 98.5 F 91 30 H 176/154 94 L Intake and Output 07/10/19 07/11/19 07/11/19 22:59 06:59 14:59 Other: Weight 115.212 kg 115.212 kg On physical examination, patient appears uncomfortable in no apparent distress. HEAD: Normocephalic, atraumatic. EYES: No scleral icterus. No conjunctival injection. MOUTH: No lesions, tongue midline. NECK: Trachea midline, no gross abnormalities. CHEST: Clear to auscultation with no wheezing or rhonchi appreciated. HEART: S1-S2 appreciated. ABDOMEN: Soft, moderately tender to palpation. Bowel sounds are positive. No organomegaly. No guarding or rigidity. EXTREMITIES: No pedal edema. SKIN: No rashes, no jaundice. NEUROLOGIC: Alert and oriented x3. No focal deficits. Results CBC & Chem 7: 07/11/19 06:30 07/11/19 06:30 Labs: Abnormal Lab Results - Last 24 Hours (Table) 07/11/19 07/11/19 07/11/19 Range/Units 06:30 06:30 06:30 WBC 13.0 H (3.8-10.6) k/uL Hgb 18.4 H (13.0-17.5) gm/dL Hct 53.4 H (39.0-53.0) % Neutrophils # 8.5 H (1.3-7.7) k/uL APTT 19.2 L (22.0-30.0) sec BUN 25 H (9-20) mg/dL Glucose 200 H (74-99) mg/dL Total Bilirubin 2.9 H (0.2-1.3) mg/dL AST 440 H (17-59) U/L ALT 574 H (21-72) U/L Amylase 2794 H* (30-110) U/L Lipase >39431 H (23-300) U/L CT scan - abdomen: report reviewed (CT scan performed was significant for cholelithiasis, a distended gallbladder without evidence of ductal dilation.) Assessment and Plan (1) Pancreatitis Narrative/Plan: 54-year-old male presenting with abdominal pain and elevation in liver enzymes concerning for gallstone pancreatitis. Bilirubin on admission 2.9 with alkaline phosphatase 110, AST 440 and ALT 574. Denies any excessive alcohol use or prior episodes of pancreatitis. He has been having biliary type pain over the past 2 years which is been more frequent over the past 2 weeks. Current Visit: Yes Status: Acute Code(s): K85.90 - ACUTE PANCREATITIS WITHOUT NECROSIS OR INFECTION, UNSP SNOMED Code(s): 25358479 (2) Elevated liver enzymes Current Visit: Yes Status: Acute Code(s): R74.8 - ABNORMAL LEVELS OF OTHER SERUM ENZYMES SNOMED Code(s): 715778718 Plan: Supportive care N.p.o. Appreciate surgical recommendations Continue to monitor liver enzymes Would recommend MRCP for further evaluation, with no current evidence of choledocholithiasis on ultrasound or CT imaging Continue IV fluid hydration Continue antibiotic therapy Continue pain control Toradol added every 6 hours for breakthrough pain Thank you for allowing us to participate in the care of the patient we will continue to follow
[2019-07-12 08:12] LABS: Albumin 4.4 g/dL (3.5-5.0); Calcium 7.8 mg/dL (8.4-10.2); HCT 57.6 % (39.0-53.0); Total Bilirubin 3.4 mg/dL (0.2-1.3); Total Protein 6.9 g/dL (6.3-8.2)
[2019-07-12 08:38] LABS: Potassium 7.1 mmol/L (3.5-5.1)
[2019-07-12] MEDS ORDERED: LISINOPRIL-HCTZ 10-12.5 MG 1 EACH TAB PO SCH (09:00)
[2019-07-12] MEDS ORDERED: SODIUM CHLORIDE 0.9% 1,000 ML IV ONE ×2 (09:01→13:21)
[2019-07-12] MEDS: metroNIDAZOLE-NS PMX 500 MG in SALINE 1 100ML.BAG IVPB SCH ×2 (09:30→17:20)
[2019-07-12] MEDS ORDERED: INSULIN REGULAR 100 UNIT/ML VIAL IV ONE (11:05)
[2019-07-12] MEDS ORDERED: CALCIUM GLUCONATE 1 GM in SODIUM CHLORIDE 0.9% 100 ML IVPB ONE (11:11)
[2019-07-12] MEDS ORDERED: SODIUM BICARB 8.4% 50 ML SYR (1 MEQ/ML) IV STA (11:12)
[2019-07-12] MEDS ORDERED: DEXTROSE 10 % IN WATER 250 ML IV STA (11:13)
[2019-07-12] MEDS: LACTULOSE 20 GM/30 ML CUP PO ONE (11:33)
[2019-07-12] MEDS: ENOXAPARIN 40 MG/0.4 ML SYRINGE SQ SCH (11:38)
--- NOTE | 2019-07-12 14:00 | P.PN ---
Subjective Progress Note Date: 07/12/19 CHIEF COMPLAINT: Abdominal pain HISTORY OF PRESENT ILLNESS: Patient examined at the bedside with Dr. Rosales. Patient reports his pain is tolerable at this time. Currently rating 4 out of 10. Denies nausea or vomiting. WBC 24.1. Potassium 7.1. Bilirubin 3.4. AST 198. ALT 370. Amylase 1884. Lipase 13,536. Creatinine increased to 2.15. PHYSICAL EXAM: VITAL SIGNS: Reviewed. GENERAL: Well-developed in no acute distress. HEENT: No sclera icterus. Extraocular movements grossly intact. Moist buccal mucosa. Head is atraumatic, normocephalic. ABDOMEN: Soft. Nondistended. Tenderness on palpation of the epigastric region. NEUROLOGIC: Alert and oriented. Cranial nerves II through XII grossly intact. ASSESSMENT: 1. Abdominal pain 2. Cholelithiasis, Possible choledocholithiasis 3. Pancreatitis 4. Hyperbilirubinemia 5. Transaminitis PLAN: -Nothing by mouth -2 L normal saline bolus -Continue IV fluids to 200 mL an hour -Repeat CBC and CMP in a.m. -Continue IV antibiotics -GI on consult. ERCP scheduled for tomorrow at noon per OR scheduling. -Will tentatively schedule patient for laparoscopic cholecystectomy on Wednesday with Dr. Rosales Nurse practitioner note has been reviewed by physician. Signing provider agrees with the documented findings, assessment, and plan of care. Objective - Vital Signs Vital signs: Vital Signs Temp 98 F 07/12/19 12:37 Pulse 118 H 07/12/19 12:37 Resp 18 07/12/19 12:37 BP 131/74 07/12/19 12:37 Pulse Ox 93 L 07/12/19 12:37 Intake & Output 07/11/19 07/12/19 07/12/19 18:59 06:59 18:59 Intake Total 1000 2400 0 Output Total 300 Balance 1000 2400 -300 Weight 115.212 kg Intake: Intake, IV Titration 1000 2400 Amount Sodium Chloride 0.9% 1, 2400 000 ml @ 200 mls/hr IV . Q5H [facility] Rx#:[id number] Sodium Chloride 0.9% 1, 1000 000 ml @ 999 mls/hr IV . Q1H1M [facility] Rx#:[id number] Oral 0 0 Output: Urine 300 Other: # Voids 2 - Labs CBC & Chem 7: 07/12/19 07:13 07/12/19 09:34 Labs: Abnormal Lab Results - Last 24 Hours (Table) 07/12/19 07/12/19 07/12/19 Range/Units 07:13 07:13 09:34 WBC 24.1 H (3.8-10.6) k/uL Hgb 18.7 H (13.0-17.5) gm/dL Hct 57.6 H* (39.0-53.0) % Neutrophils # 22.3 H (1.3-7.7) k/uL Lymphocytes # 0.5 L (1.0-4.8) k/uL Monocytes # 1.1 H (0-1.0) k/uL Potassium 7.1 H* 6.7 H* (3.5-5.1) mmol/L Chloride 109 H (98-107) mmol/L Carbon Dioxide 20 L (22-30) mmol/L BUN 39 H (9-20) mg/dL Creatinine 2.15 H (0.66-1.25) mg/dL Glucose 143 H (74-99) mg/dL Calcium 7.8 L (8.4-10.2) mg/dL Total Bilirubin 3.4 H (0.2-1.3) mg/dL AST 198 H (17-59) U/L ALT 370 H (21-72) U/L Amylase 1884 H* (30-110) U/L Lipase 71272 H (23-300) U/L Microbiology - Last 24 Hours (Table) 07/11/19 08:17 Blood Culture - Preliminary Blood No Growth after 24 hours
[2019-07-12] MEDS ORDERED: LACTULOSE 20 GM/30 ML CUP PO ONE (17:53)
--- NOTE | 2019-07-12 20:07 | P.PN ---
Subjective Progress Note Date: 07/12/19 Principal diagnosis: Gallstone pancreatitis, suspected choledocholithiasis Patient is seen lying in bed reporting less abdominal pain and requiring less narcotic medicines however still reporting some nausea with ice chips. No vomiting and is passing flatus. Objective - Vital Signs Vital signs: Vital Signs Temp 98 F 07/12/19 12:37 Pulse 118 H 07/12/19 16:05 Resp 18 07/12/19 16:05 BP 131/74 07/12/19 12:37 Pulse Ox 93 L 07/12/19 12:37 Intake & Output 07/12/19 07/12/19 07/13/19 06:59 18:59 06:59 Intake Total 2400 0 Output Total 500 Balance 2400 -500 Intake: Intake, IV Titration 2400 Amount Sodium Chloride 0.9% 1, 2400 000 ml @ 200 mls/hr IV . [facility]H [facility] Rx#:[id number] Oral 0 0 Output: Urine 500 Other: # Voids 2 2 # Bowel Movements 0 - Exam On physical examination, patient appears comfortable in no apparent distress. HEAD: Normocephalic, atraumatic. EYES: No scleral icterus. No conjunctival injection. MOUTH: No lesions, tongue midline. NECK: Trachea midline, no gross abnormalities. CHEST: Clear to auscultation with no wheezing or rhonchi appreciated. HEART: Regular rate and rhythm. ABDOMEN: Soft, obese and tender to palpation. Bowel sounds are positive. No organomegaly. No guarding or rigidity. EXTREMITIES: No pedal edema. SKIN: No rashes, no jaundice. NEUROLOGIC: Alert and oriented x3. No focal deficits. - Labs CBC & Chem 7: 07/12/19 07:13 07/12/19 15:29 Labs: Abnormal Lab Results - Last 24 Hours (Table) 07/12/19 07/12/19 07/12/19 Range/Units 07:13 07:13 09:34 WBC 24.1 H (3.8-10.6) k/uL Hgb 18.7 H (13.0-17.5) gm/dL Hct 57.6 H* (39.0-53.0) % Neutrophils # 22.3 H (1.3-7.7) k/uL Lymphocytes # 0.5 L (1.0-4.8) k/uL Monocytes # 1.1 H (0-1.0) k/uL Potassium 7.1 H* 6.7 H* (3.5-5.1) mmol/L Chloride 109 H (98-107) mmol/L Carbon Dioxide 20 L (22-30) mmol/L BUN 39 H (9-20) mg/dL Creatinine 2.15 H (0.66-1.25) mg/dL Glucose 143 H (74-99) mg/dL Calcium 7.8 L (8.4-10.2) mg/dL Total Bilirubin 3.4 H (0.2-1.3) mg/dL AST 198 H (17-59) U/L ALT 370 H (21-72) U/L Amylase 1884 H* (30-110) U/L Lipase 59861 H (23-300) U/L 07/12/19 Range/Units 15:29 WBC (3.8-10.6) k/uL Hgb (13.0-17.5) gm/dL Hct (39.0-53.0) % Neutrophils # (1.3-7.7) k/uL Lymphocytes # (1.0-4.8) k/uL Monocytes # (0-1.0) k/uL Potassium 5.4 H (3.5-5.1) mmol/L Chloride (98-107) mmol/L Carbon Dioxide (22-30) mmol/L BUN (9-20) mg/dL Creatinine (0.66-1.25) mg/dL Glucose (74-99) mg/dL Calcium (8.4-10.2) mg/dL Total Bilirubin (0.2-1.3) mg/dL AST (17-59) U/L ALT (21-72) U/L Amylase (30-110) U/L Lipase (23-300) U/L Microbiology - Last 24 Hours (Table) 07/11/19 08:17 Blood Culture - Preliminary Blood No Growth after 24 hours Assessment and Plan (1) Pancreatitis Narrative/Plan: 54-year-old male presenting with abdominal pain and elevation in liver enzymes concerning for gallstone pancreatitis. Bilirubin on admission 2.9 with alkaline phosphatase 110, AST 440 and ALT 574. Denies any excessive alcohol use or prior episodes of pancreatitis. He has been having biliary type pain over the past 2 years which is been more frequent over the past 2 weeks. Patient did have a bilirubin trend up to 3.9 today and plan was for ERCP for suspected choledocholithiasis however patient was found to be hyperkalemic with potassium of 7. Patient also had elevation in hematocrit and worsened creatinine with 2 additional liters of fluid ordered by the surgical service. Current Visit: Yes Status: Acute Code(s): K85.90 - ACUTE PANCREATITIS WITHOUT NECROSIS OR INFECTION, UNSP SNOMED Code(s): 54374659 (2) Elevated liver enzymes Current Visit: Yes Status: Acute Code(s): R74.8 - ABNORMAL LEVELS OF OTHER SERUM ENZYMES SNOMED Code(s): 145360987 Plan: Supportive care N.p.o. Appreciate surgical recommendations Continue to monitor liver enzymes Given rise in bilirubin to 3.9 today suspicion is for choledocholithiasis with plan for ERCP tomorrow after correction of potassium, unless patient has precipitous drop in total bilirubin at which time MRCP will be pursued Continue IV fluid hydration, with 2 L of additional fluid bolus today in the setting of elevated creatinine and hematocrit Continue antibiotic therapy Continue pain control Toradol added every 6 hours discontinued as the patient's pain was improved to acute kidney injury Thank you for allowing us to participate in the care of the patient we will continue to follow
[2019-07-12 21:16] LABS: Glucose,Whole Blood 124 mg/dL (75-99)
--- NOTE | 2019-07-12 21:58 | XR ---
EXAMINATION TYPE: XR chest 1V portable DATE OF EXAM: 07/12/2019 COMPARISON: NONE HISTORY: Respiratory distress TECHNIQUE: Single view FINDINGS: There is atelectasis at the lung bases. There is poor inspiration. There is no gross heart failure. There is some blunting of the costophrenic angles. IMPRESSION: Bilateral basilar atelectasis. No heart failure seen.
[2019-07-12 22:13] LABS: Basophils % (A) 0 %; Eosinophils # (A) 0.1 k/uL (0-0.7); Eosinophils % (A) 0 %; HGB 17.4 gm/dL (13.0-17.5); Lymphocytes # (A) 2.6 k/uL (1.0-4.8); Lymphocytes % (A) 10 %; MCH 31.5 pg (25.0-35.0); MCHC 31.5 g/dL (31.0-37.0); Mean Platelet Volume 8.6; Monocytes # (A) 1.3 k/uL (0-1.0); Monocytes % (A) 5 %; Neutrophils # (A) 21.1 k/uL (1.3-7.7); Neutrophils % (A) 83 %; Platelet Count 146 k/uL (150-450); RBC 5.52 m/uL (4.30-5.90); RDW 13.3 % (11.5-15.5); WBC 25.5 k/uL (3.8-10.6)
[2019-07-12 22:15] LABS: HCT 55.2 % (39.0-53.0)
[2019-07-12 22:20] LABS: Glucose,Whole Blood 141 mg/dL (75-99)
[2019-07-12 22:25] LABS: Albumin 4.2 g/dL (3.5-5.0); Calcium 8.2 mg/dL (8.4-10.2); Potassium 5.9 mmol/L (3.5-5.1); Total Bilirubin 4.1 mg/dL (0.2-1.3); Total Protein 6.7 g/dL (6.3-8.2)
[2019-07-12 22:34] LABS: Poikilocytosis (M) Present
[2019-07-12 23:27] LABS: ABG Base Excess -9.7 mmol/L; ABG HCO3 17 mmol/L (21-25); ABG Oxygen Saturation 89.4 % (94-97); ABG PCO2 38 mmHg (35-45); ABG PH 7.26 (7.35-7.45); ABG TCO2 19 mmol/L (19-24); Allen Test Performed? Yes
[2019-07-12 23:34] LABS: ABG PO2 56 mmHg (83-108)
[2019-07-13] MEDS: metroNIDAZOLE-NS PMX 500 MG in SALINE 1 100ML.BAG IVPB SCH ×4 (00:02→23:38)
--- NOTE | 2019-07-13 00:33 | P.PN ---
Progress Note - Text Progress Note Date: 07/12/19 Interval history: This is a pleasant [address]. [address] Dr[address] Odonnellyahirdee. Patient for about 2 years has had episodes of upper abdominal epigastric pain lasted for about half an hour. The pain does up to present to become severe within relaxes. Started off about 2 years ago when he states the frequency is increased. More so frequently in the last 2 weeks. Especially yesterday morning patient became rather severe. Epigastric. Started having nausea vomiting. Had fever or chills. Also been getting heartburn. Patient drinks about 12 beers over the weekend. Otherwise in good health. Admitted with-acute cholecystitis with choledocholithiasis, acute gallstone pancreatitis. Today-saw the patient this morning. Potassium was high. It was repeated. Came back high again. Patient is rather feeling thirsty. Abdominal pain is present. No nausea vomiting. at the bedside. Getting IV fluids Review of systems: Was done for constitutional, cardiovascular, GI, pulmonary. relevant finding as above Current medications reviewed in today's electronic records Physical examination: VITAL SIGNS: 98, 118, 18, 131/74, 93% on 3 L GENERAL: Propped up in bed, awake not in distress. EYES: Pupils equal. Conjunctiva normal. HEENT: External appearance of nose and ears normal, oral cavity grossly normal. NECK: JVD not raised; masses not palpable. HEART: First and second heart sounds are normal; no edema. LUNGS: Respiratory rate normal; clear to auscultation. ABDOMEN: Soft, upper abdominal tenderness, no guarding or rigidity, , no masses palpable. PSYCH: Alert and oriented x3; mood and affect slightly anxious INVESTIGATIONS, reviewed in the clinical context: White count 24.1, hemoglobin 18.7, potassium 7.1, repeat 6.7 bun 39 creatinine 2.15, bilirubin 3.4 AST 198 ALT 370, amylase 1884, lipase 89697 Previous testing White count 13 hemoglobin 18.4 pressures to 59 progression 4.3 crit 1.16 Total bilirubin 2.9 AST 440 ALT 574 Amylase 2794, lipase greater than 20,000 Computed tomography scan-moderate peripancreatic fat stranding, gallstones and a distended gallbladder with gallbladder wall thickening. Abdominal ultrasound-gallbladder thickening with intermittent small stones. Pericholecystic fluid EKG tracing-personally reviewed by me shows normal sinus rhythm nonspecific T- wave changes Assessment: -Acute cholecystitis secondary to choledocholithiasis, with early manifestation of possible ascending cholangitis -Acute gallstone pancreatitis, with some improvement in pancreatic numbers -Acute renal failure, likely ATN from hepatorenal -Essential hypertension -Obesity BMI 34.4 -Hyperkalemia in a patient does take LORENA inhibitor's the setting of renal failure Plan: Discussed with Dr. Trevino. ERCP in the view of hyperkalemia was postponed. Patient was ordered calcium gluconate, sodium bicarbonate, insulin, dextrose, Kayexalate. Repeat potassium to be done later. Late afternoon progression did come out of 5.4. Patient is already getting IV fluids. Unable to speak with the patient and the at the bedside. Patient is put on telemetry early today.
[2019-07-13] MEDS: HYDROmorphone 2 MG/ML 1 ML SYRINGE IVP PRN ×3 (01:17→11:40)
[2019-07-13] MEDS: SODIUM CHLORIDE 0.9% 1,000 ML IV SCH ×6 (01:19→23:44)
[2019-07-13] MEDS: CEFEPIME 1 GM in SODIUM CHLORIDE 0.9% 50 ML IVPB SCH (03:13)
[2019-07-13 05:41] LABS: Basophils % (A) 0 %; Eosinophils % (A) 0 %; HCT 48.6 % (39.0-53.0); HGB 15.7 gm/dL (13.0-17.5); Lymphocytes # (A) 0.7 k/uL (1.0-4.8); Lymphocytes % (A) 3 %; MCH 32.3 pg (25.0-35.0); MCHC 32.2 g/dL (31.0-37.0); Mean Platelet Volume 8.6; Monocytes # (A) 1.2 k/uL (0-1.0); Monocytes % (A) 5 %; Neutrophils # (A) 20.3 k/uL (1.3-7.7); Neutrophils % (A) 90 %; Platelet Count 127 k/uL (150-450); RBC 4.86 m/uL (4.30-5.90); RDW 13.4 % (11.5-15.5); WBC 22.5 k/uL (3.8-10.6)
[2019-07-13 06:15] LABS: Albumin 3.2 g/dL (3.5-5.0); Calcium 7.7 mg/dL (8.4-10.2); Magnesium 1.9 mg/dL (1.6-2.3); Phosphorus 3.8 mg/dL (2.5-4.5); Potassium 5.3 mmol/L (3.5-5.1); Total Bilirubin 3.5 mg/dL (0.2-1.3); Total Protein 5.4 g/dL (6.3-8.2)
[2019-07-13] MEDS ORDERED: IPRATROPIUM-ALBUTEROL 3 ML NEB INHALATION PRN (07:24)
[2019-07-13] MEDS ORDERED: LACTATED RINGERS 1,000 ML IV SCH ×2 (08:00→15:15)
[2019-07-13] MEDS ORDERED: LACTATED RINGERS 1,000 ML IV ONE ×2 (08:03→13:34)
[2019-07-13] MEDS: PANTOPRAZOLE 40 MG/10 ML VIAL IV SCH (08:05)
[2019-07-13] MEDS: ENOXAPARIN 40 MG/0.4 ML SYRINGE SQ SCH (08:06)
--- NOTE | 2019-07-13 08:08 | CONS ---
CONSULTATION PULMONARY/CRITICAL CARE CONSULTATION: DATE OF CONSULTATION: 07/13/2019 This is a 54-year-old gentleman who typically sees Dr. Malloy as a primary. He has a history of hypertension for which she takes lisinopril. The patient apparently comes to the emergency room on July 11 complaining of abdominal pain. His pain is epigastric in nature. It apparently started about 1-1/2 hours prior to his arrival to the emergency room, which was at 6:00 in the morning. He does have associated nausea. The pain is quite intense. It was graded as an 8 or 9/10. He denied any vomiting or diarrhea. It is difficult for him to take a deep breath because of the pain. No chest pain. No chest discomfort. No fever. No chills. No diarrhea. Again, the pain started only an hour or 2 before coming to the emergency room. Because it was so intense, he felt the need to come to the emergency department to be evaluated. He was discovered on evaluation to have gallstone pancreatitis. He had evidence on ultrasound of cholecystitis and cholelithiasis and had very elevated amylase and lipase levels. Apparently, the patient was to undergo an MRCP/ERCP and possible cholecystectomy, all of which were canceled because of hyperkalemia. That was yesterday. We moved him to the ICU because of instability. This included his respiratory status, which had been marginal. Currently, he is on a non-rebreather. His saturations are between 90% to 92%. He is getting saline at 200 mL an hour. Yesterday, he received 1.5 L of fluid. His lactic acid is still mildly elevated at 2.3. His potassium this morning is 5.3. Since he has been here, he has received 3.4 L of fluid total. His urine output has been about 30 mL an hour. He is doing okay. His primary problem is abdominal and back pain. It is being controlled reasonably well with pain medication. MEDICATIONS: His home medications include lisinopril/hydrochlorothiazide. He also takes a multiple vitamin. ALLERGIES: Allergies are AMOXICILLIN. PAST MEDICAL HISTORY: Past medical history includes deafness and hypertension. He apparently had a heart murmur when he was a child. He has got bilateral hearing loss. SURGICAL HISTORY: Surgical history includes nothing major other than some dental extractions. SOCIAL HISTORY: Positive for tobacco use. He drinks alcohol occasionally. No illicit drug use. FAMILY HISTORY: Noncontributory. Mother and father were healthy. REVIEW OF SYSTEMS: CONSTITUTIONAL: Negative. NEUROLOGIC: Negative. HEENT: Negative. CARDIOVASCULAR: Negative. PULMONARY: Difficulty taking deep breath because of his abdominal pain. GI: Nausea and intense epigastric and back pain. : Negative. RHEUMATOLOGIC: Negative. IMMUNOLOGIC: Negative. ENDOCRINOLOGIC: Negative. DERMATOLOGIC: Negative. PHYSICAL EXAMINATION: VITAL SIGNS: Current vital signs are reviewed. Temperature is 98.5, heart rate is about 115 to 120, respiratory rate is about mid 20s, blood pressure 155/79, mean 104, saturations 90% to 92% on a non-rebreather and 15 L high flow. I did tell the nurse to switch him over to AIRVO. GENERAL: Appears in no acute distress. HEENT: Examination is grossly unremarkable. Nasal O2 noted. NECK: Supple. Full range of motion. No adenopathy. Neck veins are flat. CARDIOVASCULAR: Examination reveals tachycardia. Heart rate about 115 to 120 beats per minute. It is sinus rhythm. S1, S2 normal. Heart sounds are otherwise not abnormal. PULMONARY: Examination reveals relatively clear breath sounds. A few scattered mild rhonchi. No wheezes or crackles. It is difficult for him to take a deep breath. ABDOMEN: Is tender on palpation. Bowel sounds are not noted. His abdomen is mildly distended. EXTREMITIES: Are intact. No cyanosis, clubbing, or edema. SKIN: Without rash. NEUROLOGIC: Examination is brief but nonfocal. IMAGING: The patient had a CT of his thoracic aorta which showed no acute findings in the chest. An EKG done on admission showed a normal sinus rhythm. An abdominal ultrasound showed evidence of both cholecystitis and cholelithiasis. The pancreas was obscured. A followup chest x-ray done yesterday shows some bibasilar atelectasis. The chest x- ray today cannot be visualized. LABORATORY DATA: Laboratory data reviewed. White count 22.5 up from 13, hemoglobin 15.7, hematocrit 40.6 platelet count 127,000. PT, INR normal. PTT 19.2. Blood gases yesterday showed a pO2 of 56, pCO2 of 38, and pH 7.26. These blood gases are consistent with hypoxemia and a metabolic acidosis. Today's electrolytes show sodium 141, potassium 5.3, chloride 113, CO2 of 18. Anion gap is 10. BUN and creatinine were 68 and 3.88. Lactic acid was 2.3. Calcium 7.7. AST 202, ALT 201. His amylase is 2060. His lipase is 10,835. MEDICATIONS: Current medications are reviewed. He is on Tylenol, cefepime, Lovenox, Dilaudid, Flagyl, Narcan, Zofran, Protonix and his IVs. ASSESSMENT: 1. Gallstone pancreatitis. 2. Non-anion gap metabolic acidosis. 3. Acute kidney injury/acute tubular necrosis. 4. History of hypertension. 5. History of tobacco use. 6. Hypoxemic respiratory failure, likely secondary to his acute intraabdominal process. PLAN: I am going to have the nurse give the patient some additional volume. I think his kidney function will improve. On admission, his BUN was 25 with a creatinine 1.16. Today, his BUN 68 with a creatinine of 3.88. His lactic acid has gone from 4.2 to 2.3. He still has a non-anion gap metabolic acidosis. His amylase and lipase are still quite elevated at 2060 and 10,835 respectively. I think from my perspective, he is stable for surgery. I think surgery will solve his primary issues today. I will speak to the surgeon. His potassium today is 5.3. Additional recommendations and suggestions are forthcoming. I will add some updrafts as well. Prognosis is guarded. We will continue to follow. MMILEANAL / IJN: [id number] /
[2019-07-13] MEDS: IPRATROPIUM-ALBUTEROL 3 ML NEB INHALATION SCH ×5 (08:19→23:37)
--- NOTE | 2019-07-13 08:36 | XR ---
EXAMINATION TYPE: XR chest 1V DATE OF EXAM: 07/13/2019 COMPARISON: 07/12/2019 HISTORY: Shortness of breath TECHNIQUE: Single frontal view of the chest is obtained. FINDINGS: Limited inspiration with cardiomegaly and prominent upper mediastinum. Bilateral consolida tion and pleural effusion. No pneumothorax. IMPRESSION: Stable bilateral consolidation and pleural effusion. Correlate for pneumonia versus CHF.
[2019-07-13 10:28] LABS: ABG Base Excess -10.2 mmol/L; ABG HCO3 17 mmol/L (21-25); ABG Oxygen Saturation 93.9 % (94-97); ABG PCO2 36 mmHg (35-45); ABG PH 7.28 (7.35-7.45); ABG PO2 68 mmHg (83-108); ABG TCO2 18 mmol/L (19-24); Allen Test Performed? Yes
[2019-07-13] MEDS ORDERED: SCOPOLAMINE 1.5MG/72HR PATCH TRANSDERM ONE (13:15)
[2019-07-13] MEDS ORDERED: HYDROmorphone 0.5 MG/0.5 ML SYRINGE IVP PRN (13:15)
[2019-07-13] MEDS ORDERED: DEXAMETHASONE SOD PHOSPHATE 10 MG/ML 1 ML VIAL IV ONE (13:15)
[2019-07-13] MEDS ORDERED: ONDANSETRON 4 MG/2 ML VIAL IVP PRN (13:15)
[2019-07-13] MEDS ORDERED: fentaNYL (PF) 50 MCG/ML 2 ML AMP ONE (13:34)
[2019-07-13] MEDS ORDERED: LIDOCAINE 1% INJ 10MG/ML (20 ML MDV) ONE (13:34)
[2019-07-13] MEDS ORDERED: SUCCINYLCHOLINE CHLORIDE 100 MG/5 ML SYR IV ONE (13:34)
[2019-07-13] MEDS ORDERED: ROCURONIUM BROMIDE 10 MG/ML 10 ML VIAL IV ONE (13:34)
[2019-07-13] MEDS ORDERED: PROPOFOL 10 MG/ML 20 ML VIAL IV ONE (13:34)
[2019-07-13] MEDS ORDERED: IOPAMIDOL-300 50ML BTL INJ ONE (13:47)
--- NOTE | 2019-07-13 13:48 | CDI ---
Documentation Clarification Form Date: 07/13/2019 1:05:44 PM From: Diana Sanders RN, CCDS Admit Date: 07/11/2019 7:50:00 AM Patient Name: Wm Antonio Visit Number: [id number] Discharge Date: ATTENTION: The Clinical Documentation Specialists (CDI) and [facility] Coding Staff appreciate your assistance in clarifying documentation. Please respond to the clarification below the line at the bottom and electronically sign. The CDI & [facility] Coding staff will review the response and follow-up if needed. Please note: Queries are made part of the Legal Health Record. If you have any questions, please contact the author of this message via ITS. Dr. Fadi Lopez The patient presented with epigastric pain radiating into the chest. Patient was in distress rating pain 10 out of 10. History/Risk Factors: Hypertension Clinical Indicators: 54-year-old male present with epigastric pain. Emergency evaluation found that he was very diaphoretic and clammy, hypertensive and in distress with a rigid abdomen and chest pain. He was having difficulty breathing because of the discomfort radiating to his chest. 07/11/19 WBC 13.0, Lipase grater than 20,000 with an amylase of 2794, Total bilirubin 2.9 alkaline phosphatase 110, AST 440, and ALT 574 07/12/19 WBC 24.1 Neutrophils 22.3, K+ 7.1, 6.7; BUN 39, CR 2.15 amylase 1994, Lipase 13,536 07/11/10@ 21:00 153/116 113 16 97.5 81 % RA Lactic acid: (07/12 @ 20:00 4.2 07/13 2.9 Blood cultures: Pending Vitals signs on admission: 09/11/18 174/54 91 30 98.5, 94 % RA CT abdomen/pelvis: show moderate pancreatic fat stranding/fluid suggestive of acute pancreatitis. No fluid collection. There is cholelithiasis in a distended gallbladder wall thickening and edema. Findings concerning for acute cholecystitis. could be adjacent pancreatic pathology. 07/12/19 Dr Quintero: Gallstone pancreatitis 07/13 Pulmonary (Dr. Cates) Gallstone pancreatitis, Non-anion gap metabolic acidosis. Hypoxemic respiratory failure, likely secondary to his ac intraabdominal process. Treatment: ICU Monitoring IV Fluid bolus, IV 200 mls hr Nothing by mouth Cefepime IV Q D Toradol IV Q 6 PRN Rodriguez Dilaudid IV PRN Monitor CBC liver enzymes, Lytes Flagyl IV Q8 Surgery consult: (Dr. Rosales) Thickened edematous gallbladder wall, cholelithiasis, probable pericholecystic fluid. Cholelithiasis, Possible choledocholithiasis, Pancreatitis In your professional opinion, please clarify if these findings signify one of the following conditions, whether the condition is POA, and cause, if known: Condition Sepsis ruled out Sepsis ruled in (specify infection source) Severe Sepsis Other, please specify Unable to determine Present on Admission Yes No Identify the (suspected) organism Link or clarify if there is associated (due to/with): Organ failure Shock SIRS Criteria (2 or more of the following may indicate SIRS): -Temperature < 96.8F (36C) or > 101.0F (38.3C) -Heart Rate > 90 bpm -Respiratory Rate > 20 breaths/min or PaCO2 < 32 mmHg -White Blood Cell Count > 12,000 or < 4,000 cells/mm3 or > 10% bands -Lactate >2.0 mmol/L (>4.0 is equivalent to septic shock) (Last Revision: October 2017) Possible sepsis MTDD
--- NOTE | 2019-07-13 14:17 | P.PN ---
Progress Note - Text Progress Note Date: 07/13/19 Patient not in room during physician rounds. Currently undergoing ERCP. Plan is for patient to return on mechanical ventilation. Patient is tentatively scheduled for laboratory cholecystectomy tomorrow with Dr. Rosales.
[2019-07-13] MEDS ORDERED: CISATRACURIUM 2 MG/ML 5 ML VIAL IV ONE (14:45)
--- NOTE | 2019-07-13 14:53 | P.PCN ---
Date of Procedure: 07/13/19 Description of Procedure: Brief history: 54-year-old male presenting with abdominal pain and elevation in liver enzymes secondary to gallstone pancreatitis. Bilirubin on admission 2.9 with alkaline phosphatase 110, AST 440 and ALT 574. Patient did have a bilirubin trend up to 3.9 and plan was for ERCP for suspected choledocholithiasis however patient was found to be hyperkalemic with potassium of 7. Patient brought to the ICU yesterday due to hypoxia and again had worsening of creatinine today indicative of severe pancreatitis. Procedure performed: Aborted ERCP Preoperative diagnoses: Gallstone pancreatitis, hyperbilirubinemia, suspected choledocholithiasis IV sedation per anesthesia Estimated blood loss: Minimal. Procedure: After informed consent was obtained from the patient and after the risks benefits and complications including bleeding perforation and pancreatitis expl ained in detail the patient was brought into the endoscopy unit. The patient was placed in prone position and IV conscious sedation was administered by anesthesia under continuous monitoring. The Olympus side-viewing duodenoscope was then inserted into the mouth and esophagus intubated without any difficulty. The scope was gradually advanced into the stomach where a large amount of solid debris was found throughout the stomach almost completely impairing visualization of the mucosa. Attempts to insufflate the stomach and remove the debris better visualization were unsuccessful and at this time the procedure was aborted. The patient tolerated the procedure well. Impression: Aborted/failed ERCP secondary to large amounts of retained solid debris in the stomach with suspicion for ileus in the setting of pancreatitis and fecal debris Recommendations: The findings of this examination were discussed with the patients , mother and father. At this time patient will be brought back to the ICU. He will remain intubated under the care of the hide washer. Continue fluid hydration. Continue supportive care. Avoid nephrotoxins. Oral gastric tube will be inserted and placed on suction. Gastroenterology service will continue to follow the patient with timing of ERCP to be determined.
[2019-07-13] MEDS: LACTATED RINGERS 1,000 ML IV SCH ×3 (15:17→18:32)
[2019-07-13 15:23] LABS: ABG Base Excess -10.7 mmol/L; ABG HCO3 18 mmol/L (21-25); ABG Oxygen Saturation 90.1 % (94-97); ABG PCO2 55 mmHg (35-45); ABG PO2 67 mmHg (83-108); ABG TCO2 20 mmol/L (19-24); Allen Test Performed? Yes
[2019-07-13 15:35] LABS: ABG PH 7.13 (7.35-7.45)
--- NOTE | 2019-07-13 15:50 | XR ---
EXAMINATION TYPE: XR chest 1V portable DATE OF EXAM: 07/13/2019 COMPARISON: 07/13/2019 HISTORY: Tube placement FINDINGS: There are bilateral pleural effusions with cardiomegaly and bibasilar infiltrate. There is a diffuse interstitial pattern. ET tube is seen with the tip approximately 3 cm above the pura. Left-sided c entral line is seen with tip overlying the right atrium. IMPRESSION: 1. Bilateral infiltrate and pleural effusion stable. Correlate for pneumonia versus CHF. 2. ET tube appears in good position. Left-sided central line seen with the tip overlying the right at rium and no pneumothorax
[2019-07-13] MEDS: DEXTROSE 5% IN WATER 1,000 ML with SODIUM BICARB (1 MEQ/ML) 150 ML IV SCH (16:23)
[2019-07-13 16:38] LABS: Calcium 7.8 mg/dL (8.4-10.2); Potassium 5.7 mmol/L (3.5-5.1)
[2019-07-13 17:15] LABS: ABG Base Excess -11.4 mmol/L; ABG HCO3 17 mmol/L (21-25); ABG Oxygen Saturation 93.4 % (94-97); ABG PCO2 49 mmHg (35-45); ABG PO2 74 mmHg (83-108); ABG TCO2 19 mmol/L (19-24); Allen Test Performed? Yes
[2019-07-13] MEDS ORDERED: SODIUM BICARB 8.4% 50 ML SYR (1 MEQ/ML) IV STA ×2 (17:35→17:37)
[2019-07-13] MEDS ORDERED: INSULIN REGULAR 100 UNIT/ML VIAL IV ONE ×2 (17:37→17:38)
[2019-07-13] MEDS ORDERED: DEXTROSE 10 % IN WATER 250 ML IV STA (17:40)
[2019-07-13 17:50] LABS: ABG PH 7.16 (7.35-7.45)
[2019-07-13 17:58] LABS: Glucose,Whole Blood 203 mg/dL (75-99)
--- NOTE | 2019-07-13 19:02 | CONS ---
CONSULTATION REASON FOR CONSULT: Renal failure. HISTORY OF PRESENT ILLNESS: The patient is a 54-year-old male who was initially admitted to the hospital on 07/11/2019 with complaints of abdominal pain, not feeling well. Patient has had recurrent episodes of abdominal pain on and off for the last two years, but his recent complaint started about a day or so prior to his admission. He was noted to have pancreatitis with lipase level more than 20,000. It is now decreasing, and it is down to 10,835 today. Patient's serum creatinine was 1.16 on initial admission on 07/11/2019. It is up to 3.8 today. Urine output is borderline, about 30 mL/hour. Patient has received about 5 L of fluid boluses. He currently remains on IV fluids. Patient has been tachycardic, with heart rate around 125 to 128 per minute. He does not have a temperature. He is going down for ERCP. Abdominal ultrasound on admission shows a thickened gallbladder wall. No biliary dilatation was noted. Patient does have history of alcohol use over the weekends. His lactic acid is now at 3.3. On initial admission it was 4.2. Prior to admission, patient was not on any nonsteroidal anti-inflammatory agents. He was on LORENA inhibitors and diuretics, which are currently on hold. PAST MEDICAL HISTORY: His past medical history is significant for: 1. Hypertension. 2. Hearing loss. 3. History of colonoscopy with benign polypectomy. SOCIAL HISTORY: Positive for smoking. No history of drug abuse or alcohol abuse. MEDICATIONS: Medications included Zestoretic, multivitamins. ALLERGIES: ALLERGIES include AMOXICILLIN, which causes rash and hives. REVIEW OF SYSTEMS: As per HPI. Other systems negative. PHYSICAL EXAMINATION: Patient is currently in the ICU. He is maintained on 100% non-rebreather. Patient is awake. He is not in any acute distress. He is tachypneic. Blood pressure when he was seen was 153/96, heart rate 120 per minute. Patient is afebrile. EXAMINATION OF THE HEART: S1 and S2. EXAMINATION OF LUNGS: Bilateral breath sounds. ABDOMEN: Soft, non-tender. Examination of lower extremities shows no evidence of edema. ENT CONSULTANT exam is grossly intact. Patient moving all 4 extremities. LABS: Sodium 141, potassium 5.3, chloride 113. CO2 is 18, BUN 68, creatinine 3.8, amylase 2061, lipase 10,835. Hemoglobin 15.7 g/dL. ASSESSMENT: 1. Acute kidney injury, acute tubular necrosis, currently nonoliguric; however, urine output is borderline. Continue with the IV fluids for now. If urine output drops further, we will try a dose of IV Lasix. I will discontinue the Toradol, given his renal failure. 2. Acute pancreatitis with possibility of gallstone pancreatitis. CBD is not elevated. Patient is going down for ERCP. 3. Hypertension; blood pressure currently 150s to 140s systolic. Continue off of antihypertensive medications for now. 4. Hyperkalemia on initial admission associated with acute kidney injury, currently improved. We will repeat labs this evening. Avoid NSAIDs, which will make the hyperkalemia worse. Patient has been receiving Toradol since admission. PLAN: Discontinue Toradol. Continue IV fluids. Avoid nephrotoxic agents. Repeat labs in a.m. Thank you for this consultation. Will continue to follow the patient with you during his hospitalization. MMODL / IJN: [id number] /
[2019-07-13] MEDS ORDERED: FUROSEMIDE 10 MG/ML 10 ML VIAL IV STA (19:08)
[2019-07-13] MEDS: PROPOFOL 1,000 MG in EMPTY BAG 1 BAG IV SCH ×2 (20:29→23:33)
[2019-07-13] MEDS ORDERED: INSULIN ASPART (NovoLOG) 100 UNIT/ML VIAL SQ SCH (20:30)
[2019-07-13 21:34] LABS: Albumin 2.9 g/dL (3.5-5.0); Calcium 7.6 mg/dL (8.4-10.2); Potassium 5.1 mmol/L (3.5-5.1); Total Bilirubin 2.4 mg/dL (0.2-1.3); Total Protein 4.9 g/dL (6.3-8.2)
--- NOTE | 2019-07-13 21:47 | PCN ---
PROCEDURE NOTE PROCEDURE: Left internal jugular triple-lumen catheter placement PREOPERATIVE DIAGNOSIS: Administration of fluids and pressors. POSTOPERATIVE DIAGNOSIS: Administration of fluids and pressors. TRIPLE LUMEN CATHETER PLACEMENT: Indication: Hemodynamic monitoring/Intravenous access. A time-out was completed verifying correct patient, procedure, site, positioning, and implant(s) or special equipment if applicable. The patient was placed in a dependent position appropriate for triple-lumen catheter placement based on the vein to be cannulated. The patient's left neck was prepped and draped in sterile fashion. Lidocaine 1% was used to anesthetize the surrounding skin area. A triple-lumen 9F Cordis catheter was introduced into the left internal jugular vein using Seldinger technique. The catheter was threaded smoothly over the guide wire and appropriate blood return was obtained. Each lumen of the catheter was evacuated of air and flushed with sterile saline. The catheter was then sutured in place to the skin and a sterile dressing applied. Perfusion to the extremity distal to the point of catheter insertion was checked and found to be adequate. There was no immediate complication. There was good blood return from all 3 ports. Catheter was sutured in place. Sterile dressing was applied by the nurse. A chest x- ray will be ordered. The tip of the catheter after the x-ray was seen to be in the superior vena cava. MMODL / IJN: [id number] /
--- NOTE | 2019-07-13 21:53 | PCN ---
PROCEDURE NOTE PROCEDURE: Right radial arterial line placement. PREOPERATIVE DIAGNOSIS: Septic shock. POSTOPERATIVE DIAGNOSIS: Septic shock. Indications: Hemodynamic monitoring. A time-out was completed verifying correct patient, procedure, site, positioning, and implant(s) or special equipment if applicable. Conner's test was performed to ensure adequate perfusion. The patient's right wrist was prepped and draped in sterile fashion. Lidocaine 1% was used to anesthetize the area. An 18G Arrow arterial line was introduced into the radial artery. The catheter was threaded over the guidewire and the needle was removed with appropriate pulsatile blood return. Blood loss was minimal. The catheter was then sutured in place to the skin and a sterile dressing applied. Perfusion to the extremity distal to the point of catheter insertion was checked and found to be adequate. The patient tolerated the procedure well and there were no complications. Right radial arterial line was placed without immediate complications. Good waveform was noted. Line was flushed, sutured in place. Sterile dressing was applied. Patient tolerated the procedure very well. MMODL / IJN: [id number] /
--- NOTE | 2019-07-13 21:56 | P.PN ---
Progress Note - Text Progress Note Date: 07/13/19 Interval history: This is a pleasant [address]. [address] Malloy. Patient for about 2 years has had episodes of upper abdominal epigastric pain lasted for about half an hour. The pain does up to present to become severe within relaxes. Started off about 2 years ago when he states the frequency is increased. More so frequently in the last 2 weeks. Especially yesterday morning patient became rather severe. Epigastric. Started having nausea vomiting. Had fever or chills. Also been getting heartburn. Patient drinks about 12 beers over the weekend. Otherwise in good health. Admitted with-acute cholecystitis with choledocholithiasis, acute gallstone pancreatitis.patient clinically deteriorated and was transferred to the ICU on July 13. Patient intubated. Today-ICU. Intubated. On the ventilator. FiO2 100% and PEEP of 13. Sinus tachycardia. Drips include IV propofol. NG tube in place. ERCP was attempted but large amount of debris was found in the stomach. Procedure aborted Review of systems: patient is intubated Active Medications Acetaminophen (Tylenol Tab) 650 mg PO Q4HR PRN PRN Reason: Fever and/or Mild Pain Albuterol/Ipratropium (Duoneb 0.5 Mg-3 Mg/3 Ml Soln) 3 ml INHALATION RT-TID PRN PRN Reason: Shortness Of Breath Or Wheezing Albuterol/Ipratropium (Duoneb 0.5 Mg-3 Mg/3 Ml Soln) 3 ml INHALATION RT-Q4H [facility] Last Admin: 07/13/19 19:59 Dose: 3 ml Documented by: Chlorhexidine Gluconate (Peridex) 15 ml MUCOUS MEM BID [facility] Enoxaparin Sodium (Lovenox) 30 mg SQ DAILY [facility] Hydromorphone HCl (Dilaudid) 0.5 mg IVP Q2H PRN PRN Reason: Pain Last Admin: 07/11/19 21:09 Dose: 0.5 mg Documented by: Hydromorphone HCl (Dilaudid) 2 mg IVP Q3HR PRN PRN Reason: Moderate Pain Last Admin: 07/13/19 11:40 Dose: 2 mg Documented by: Hydromorphone HCl (Dilaudid) 0.5 mg IVP Q5M PRN PRN Reason: Pain Control Stop: 07/14/19 13:16 Metronidazole 500 mg/ IV (Solution) 100 mls @ 100 mls/hr IVPB Q8HR [facility] Last Admin: 07/13/19 15:34 Dose: 100 mls/hr Documented by: Sodium Chloride (Saline 0.9%) 1,000 mls @ 200 mls/hr IV .Q5H [facility] Last Admin: 07/13/19 15:20 Dose: 200 mls/hr Documented by: Cefepime HCl 1 gm/ Sodium (Chloride) 50 mls @ 100 mls/hr IVPB Q24H [facility] Last Admin: 07/13/19 03:13 Dose: 100 mls/hr Documented by: Lactated Ringer's (Lactated Ringers) 1,000 mls @ 20 mls/hr IV .Q24H [facility] Last Admin: 07/13/19 15:17 Dose: Not Given Documented by: Sodium Bicarbonate 150 ml/ (Dextrose/Water) 1,150 mls @ 75 mls/hr IV .[id number] [facility] Last Admin: 07/13/19 16:23 Dose: 75 mls/hr Documented by: Propofol 1,000 mg/ IV Solution 100 mls @ 0 mls/hr IV .Q0M [facility]; Protocol Last Admin: 07/13/19 20:29 Dose: 40 mcg/kg/min, 27.651 mls/hr Documented by: Insulin Aspart (Novolog) 0 unit SQ Q6HR [facility]; Protocol Naloxone HCl (Narcan) 0.2 mg IV Q2M PRN PRN Reason: Opioid Reversal Ondansetron HCl (Zofran) 4 mg IVP Q8HR PRN PRN Reason: Nausea And Vomiting Ondansetron HCl (Zofran) 4 mg IVP ONCE PRN PRN Reason: Nausea And Vomiting Stop: 07/14/19 13:16 Pantoprazole Sodium (Protonix) 40 mg IV DAILY [facility] Last Admin: 07/13/19 08:05 Dose: 40 mg Documented by: Physical examination: VITAL SIGNS: 98.3, 122, 28, , 11 4/92, 100% on ventilator GENERAL: laying in bed, intubated. EYES: Pupils equal. Conjunctiva normal. HEENT: External appearance of nose and ears normal, oral cavity grossly normal., endotracheal tube in place, NG tube in place NECK: JVD not raised; masses not palpable. HEART: First and second heart sounds are normal; no edema. LUNGS: Respiratory rate increased, decreased breath sounds. ABDOMEN: Soft, upper abdominal tenderness, no guarding or rigidity, , no masses palpable. PSYCH: sedated INVESTIGATIONS, reviewed in the clinical context: white count 22.5 hemoglobin 15.7 potassium 5.3 bun 68 creatinine 3.88 amylase 2061, lipase 33370, AST 202, ALT 201 Chest x-ray film-bilateral/infiltrate Previous testing White count 13 hemoglobin 18.4 pressures to 59 progression 4.3 crit 1.16 Total bilirubin 2.9 AST 440 ALT 574 Amylase 2794, lipase greater than 20,000 Computed tomography scan-moderate peripancreatic fat stranding, gallstones and a distended gallbladder with gallbladder wall thickening. Abdominal ultrasound-gallbladder thickening with intermittent small stones. Pericholecystic fluid EKG tracing-personally reviewed by me shows normal sinus rhythm nonspecific T- wave changes Assessment: -Acute cholecystitis secondary to choledocholithiasis, with early manifestation of possible ascending cholangitis, not improving -Acute gallstone pancreatitis, , slow to respond -Acute renal failure, likely ATN from hepatorenal, worsening -Essential hypertension -Obesity BMI 34.4 -Hyperkalemia in a patient does take LORENA inhibitor's the setting of renal failure -Severe metabolic acidosis with lactic acidosis -Acute hypoxic severe respiratory failure secondary to noncardiogenic pulmonary edema and/or ARDS Plan: attempted ERCP was made today. Unsuccessful. Patient will need surgery hemoglobin is critically ill. Discussed with the . Dr. Scott is discussing this with the surgeon. Continue supportive care.patient is on IV cefepime and IV Flagyl. IV fluids. Prognosis guarded.
[2019-07-13] MEDS: CHLORHEXIDINE GLUCONATE 15 ML CUP MUCOUS MEM SCH (21:59)
[2019-07-13 22:10] LABS: HCT 42.9 % (39.0-53.0); HGB 14.1 gm/dL (13.0-17.5); MCH 32.9 pg (25.0-35.0); MCV 99.9 fL (80.0-100.0); Mean Platelet Volume 9.2; Platelet Count 105 k/uL (150-450); RBC 4.29 m/uL (4.30-5.90); RDW 13.7 % (11.5-15.5); WBC 11.3 k/uL (3.8-10.6)
[2019-07-13 23:39] LABS: Glucose,Whole Blood 194 mg/dL (75-99)
[2019-07-13] MEDS: INSULIN ASPART (NovoLOG) 100 UNIT/ML VIAL SQ SCH (23:43)
[2019-07-14] MEDS ORDERED: KETOROLAC 30 MG/ML 1 ML VIAL IVP SCH
[2019-07-14] MEDS: PROPOFOL 1,000 MG in EMPTY BAG 1 BAG IV SCH ×7 (01:10→21:07)
[2019-07-14] MEDS: CEFEPIME 1 GM in SODIUM CHLORIDE 0.9% 50 ML IVPB SCH (03:00)
[2019-07-14] MEDS: HYDROmorphone 0.5 MG/0.5 ML SYRINGE IVP PRN (03:00)
[2019-07-14] MEDS: IPRATROPIUM-ALBUTEROL 3 ML NEB INHALATION SCH ×6 (03:20→23:27)
[2019-07-14 03:32] LABS: ABG Base Excess -6.2 mmol/L; ABG HCO3 19 mmol/L (21-25); ABG Oxygen Saturation 99.6 % (94-97); ABG PCO2 35 mmHg (35-45); ABG PH 7.35 (7.35-7.45); ABG PO2 172 mmHg (83-108); ABG TCO2 21 mmol/L (19-24); Allen Test Performed? Yes
[2019-07-14 03:59] LABS: Basophils % (A) 0 %; Eosinophils % (A) 0 %; HCT 40.2 % (39.0-53.0); Lymphocytes # (A) 0.5 k/uL (1.0-4.8); Lymphocytes % (A) 5 %; MCHC 32.3 g/dL (31.0-37.0); MCV 99.1 fL (80.0-100.0); Mean Platelet Volume 9.5; Monocytes # (A) 0.6 k/uL (0-1.0); Monocytes % (A) 6 %; Neutrophils # (A) 8.4 k/uL (1.3-7.7); Neutrophils % (A) 88 %; RBC 4.05 m/uL (4.30-5.90); RDW 13.8 % (11.5-15.5); WBC 9.5 k/uL (3.8-10.6)
[2019-07-14 04:00] LABS: Albumin 2.6 g/dL (3.5-5.0); Calcium 7.3 mg/dL (8.4-10.2); Magnesium 1.9 mg/dL (1.6-2.3); Phosphorus 4.3 mg/dL (2.5-4.5); Total Bilirubin 1.9 mg/dL (0.2-1.3); Total Protein 4.6 g/dL (6.3-8.2)
[2019-07-14 04:14] LABS: Potassium 4.9 mmol/L (3.5-5.1)
[2019-07-14 04:26] LABS: Anisocytosis (M) Present; Polychromasia Present
[2019-07-14 04:27] LABS: Platelet Count 87 k/uL (150-450)
[2019-07-14] MEDS: DEXTROSE 5% IN WATER 1,000 ML with SODIUM BICARB (1 MEQ/ML) 150 ML IV SCH ×2 (05:34→18:40)
[2019-07-14] MEDS: HYDROmorphone 2 MG/ML 1 ML SYRINGE IVP PRN ×5 (06:08→21:07)
[2019-07-14] MEDS ORDERED: NOREPINEPHRINE 4 MG in SODIUM CHLORIDE 0.9% 250 ML IV SCH (06:30)
[2019-07-14 06:54] LABS: Glucose,Whole Blood 185 mg/dL (75-99)
[2019-07-14] MEDS: INSULIN ASPART (NovoLOG) 100 UNIT/ML VIAL SQ SCH ×3 (07:25→18:39)
[2019-07-14] MEDS: SODIUM CHLORIDE 0.9% 1,000 ML IV SCH ×3 (08:20→15:42)
[2019-07-14] MEDS: metroNIDAZOLE-NS PMX 500 MG in SALINE 1 100ML.BAG IVPB SCH ×2 (08:21→15:42)
[2019-07-14] MEDS: ENOXAPARIN 30 MG/0.3 ML SYRINGE SQ SCH (08:22)
[2019-07-14] MEDS: PANTOPRAZOLE 40 MG/10 ML VIAL IV SCH (08:22)
[2019-07-14] MEDS: CHLORHEXIDINE GLUCONATE 15 ML CUP MUCOUS MEM SCH ×2 (08:22→21:07)
--- NOTE | 2019-07-14 08:48 | PN ---
PROGRESS NOTE PULMONARY/CRITICAL CARE PROGRESS NOTE: DATE OF SERVICE: 07/14/2019 This is a 54-year-old gentleman who typically sees Dr. Malloy as a primary. His only major medical problem is hypertension for which he takes lisinopril. He came to the emergency department on July 11 complaining of severe abdominal and back pain. He was found to have acute pancreatitis and also cholelithiasis. He likely has gallstone pancreatitis. His pancreatic enzymes were quite high. Attempted MRCP and ERCP was not able to be performed. The patient was to have a laparoscopic cholecystectomy, but initially it was canceled because of hyperkalemia. Anyway, another ERCP was planned for yesterday. It could not be done by the nitriles lab technician and the patient was intubated for the procedure. He returned to the ICU on the ventilator. It was clear to us that he is developing acute lung injury/acute respiratory distress syndrome. We did place an art line and central line yesterday. He had a right radial art line placed and a left internal jugular triple-lumen catheter placed. We had a very difficult time in 2 fronts. We had a difficult time oxygenating the patient. He was on 100% and 13 of PEEP before we broke his shunt. In addition, he had significant metabolic acidosis. He received a number of amps of sodium bicarbonate and was placed on a bicarbonate drip. I am happy to report that both those things have improved this morning. I did talk to Dr. Rosales. We are going to hold off for a while before surgery is contemplated. I did have a long conversation with his today explaining the fact that he was still very, very ill, although he had made significant progress overnight. Currently, he is on the volume assist-control mode rate of 28, tidal volume 500, FiO2 of 80%, PEEP of 13. Blood gases showed a pO2 of 172, pCO2 of 35, and a pH of 7.35. The blood gases are consistent with hyperoxia and a mild metabolic acidosis. Those blood gases were done on 100% so the respiratory therapist dropped him down to 80%. When I was in the room observing the patient, it was clear to me that he was stacking breaths and somewhat dyssynchronous with the ventilator. We switched him to pressure regulated volume control VC plus modality. His targeted tidal volume is 450 mL and inspiratory timer TI is 0.8 seconds. Will see if that does not suit him more. In addition, the patient is on saline at 100 mL an hour, 3 amps of sodium bicarbonate and D5W at 100 mL an hour and propofol at 40 mcg/kg per minute. Levophed is on hold. I did ask the nurses to make sure that they continue to use Dilaudid in addition to the propofol. I did speak to the surgeon, both last night and this morning. Again, as I mentioned, I did have a conversation with his . Current vital signs are reviewed. Temperature is 99.7, heart rate 116, respiratory rate about 30 breaths per minute, blood pressure 105/50. His central venous pressure is 14 and his saturations are 95% on the 70% and 5 of PEEP. Currently sedated. There is an orally placed endotracheal tube and NG tube. HEENT: Examination is grossly unremarkable. NECK: Supple. CARDIOVASCULAR: Examination reveals tachycardia. He has sinus tachycardia at about 110 beats per minute. S1, S2 normal. Heart sounds are distant. LUNGS: Reveal diffuse coarse rhonchi. Breath sounds are diminished. Breath sounds are equal bilaterally. ABDOMEN: Mildly distended. No bowel sounds. EXTREMITIES: Intact. Minimal edema. SKIN: Without rash. NEUROLOGIC: Examination could not be adequately assessed given his current level of sedation. LABS: Reviewed. White count 9.5, hemoglobin 13, hematocrit 40.2, platelet count 87,000. His most recent blood gases again show a pO2 of 172, pCO2 of 35, and a pH of 7.35. These blood gases are consistent with hyperoxia mild metabolic acidosis. Sodium 140, potassium 4.9, chloride is 112, CO2 is 18, anion gap is 10, BUN and creatinine has risen up to of 90 and 5.97. His calcium is 7.3, total bilirubin is 1.9, AST 92, ALT 118. Those are both improved and his amylase is down to 765 with a lipase of 2788. C. difficile studies were negative. Chest x-ray shows a bit of fluid overload with bilateral pleural effusions. Endotracheal tube was properly placed. The central line looks good. Blood cultures are thus far negative. Will make sure urine and sputum cultures are sent as well. MEDICATIONS: Reviewed. He is currently on Tylenol, cefepime, chlorhexidine, Lovenox, hydromorphone, insulin, updrafts, Flagyl, Narcan, norepinephrine p.r.n., Zofran, Protonix, and Diprivan. ASSESSMENT: 1. Gallstone pancreatitis, quite severe. 2. Acute respiratory distress syndrome, moderate in severity with paO2/FiO2 ratio of 172. 3. Non-anion gap metabolic acidosis. 4. Acute kidney injury/acute tubular necrosis. 5. History of hypertension. 6. History of chronic tobacco use. 7. Hypoxemic respiratory failure. 8. Thrombocytopenia. PLAN: The patient's overall prognosis remains very guarded. I have to say though that over the last couple of hours, his numbers have improved. His acidosis is almost totally corrected. His oxygenation has improved on high concentrations of oxygen and high levels of PEEP. We are using a low tidal volume strategy. I did switch him from the volume assist-control mode to the VC plus or pressure regulated volume control mode with a targeted tidal volume of 450 and an inspiratory time of 0.8 seconds. Will add some Dilaudid for pain control. He remains on the bicarb drip and the propofol. Levophed is on hold. Blood gases have been reviewed. His fluids have been more aggressively administered. Additional recommendations and suggestions are forthcoming. Surgery will hold off surgery until early next week or this weekend. Will continue to follow. CRITICAL CARE TIME: 36 minutes. MMILEANAL / RKN: [id number] / [id number]
[2019-07-14] MEDS ORDERED: ACETAMINOPHEN IV (For NPO) 1,000 MG in EMPTY BAG 1 BAG IVPB PRN (08:52)
--- NOTE | 2019-07-14 09:17 | XR ---
EXAMINATION TYPE: XR chest 1V portable DATE OF EXAM: 07/14/2019 COMPARISON: Prior chest x-ray 07/13/2019 HISTORY: Abnormal physical exam, adventitious lung sounds, intubated TECHNIQUE: Single frontal view of the chest is obtained. FINDINGS: Endotracheal tube is overlying the tracheal air column, left jugular central venous cathet er shows the distal tip over the cavoatrial junction level. There are overlying cardiac leads. The he art is enlarged although the patient is rotated. No evident pneumothorax. Bibasilar increased attenua tion is noted with obscured hemidiaphragms. There may be some improvement in visualization of the rig ht hilar structures. IMPRESSION: Suspect some improvement in aeration, volume status, bibasilar effusions and associated atelectasis versus edema are noted, pneumonia not excluded.
[2019-07-14 11:28] LABS: Glucose,Whole Blood 189 mg/dL (75-99)
--- NOTE | 2019-07-14 12:52 | P.PN ---
Subjective Progress Note Date: 07/14/19 CHIEF COMPLAINT: Abdominal pain HISTORY OF PRESENT ILLNESS: patient is status post attempted ERCP by Dr. Quintero. Patient remains intubated in the intensive care unit. W BC 9.5. Hemoglobin 13.0. bilirubin 1.9. AST 92. ALT 118. Amylase 765. Lipase 2788. PHYSICAL EXAM: VITAL SIGNS: Reviewed. GENERAL: Well-developed in no acute distress-sedated on mechanical ventilation. HEENT: No sclera icterus. Extraocular movements grossly intact. Moist buccal mucosa. Head is atraumatic, normocephalic. ABDOMEN: Soft. Nondistended. positive bowel sounds. NEUROLOGIC: sedated on mechanical ventilation ASSESSMENT: 1. Abdominal pain 2. Cholelithiasis, Possible choledocholithiasis 3. Pancreatitis 4. Hyperbilirubinemia 5. Transaminitis PLAN: Patient will be scheduled for laparoscopic cholecystomy on Wednesday with Dr. Rosales Nurse practitioner note has been reviewed by physician. Signing provider agrees with the documented findings, assessment, and plan of care. Objective - Vital Signs Vital signs: Vital Signs Temp 100.2 F H 07/14/19 08:00 Pulse 104 H 07/14/19 11:46 Resp 7 L 07/14/19 09:00 BP 93/61 07/14/19 09:00 Pulse Ox 94 L 07/14/19 09:00 Intake & Output 07/13/19 07/14/19 07/14/19 18:59 06:59 18:59 Intake Total 5250 1745.671 780.649 Output Total 150 41 503 Balance 5100 1704.671 277.649 Weight 138.8 kg Intake: IV 5250 1425 700 0.9 200 Cefepime 1 gm In Sodium 50 Chloride 0.9% 50 ml @ 100 mls/hr IVPB Q24H [facility] Rx# :[id number] Dextrose 5% in Water 1, 150 875 300 000 ml @ 100 mls/hr IV . [id number] [facility] with Sodium Bicarb (1 Meq/ml) 150 ml Rx#:[id number] Lactated Ringers 1,000 ml 1000 @ 999 mls/hr IV .Q1H1M ONE Rx#:[id number] Lactated Ringers 1,000 ml 2000 @ 999 mls/hr IV .Q1H1M [facility] Rx#:[id number] Sodium Chloride 0.9% 1, 1600 400 300 000 ml @ 100 mls/hr IV . Q10H [facility] Rx#:[id number] metroNIDAZOLE-NS PMX 500 100 100 100 mg In Saline 1 100ml.bag @ 100 mls/hr IVPB Q8HR [facility] Rx#:[id number] Intake, IV Titration 320.671 80.649 Amount Norepinephrine 4 mg In 3.951 0 Sodium Chloride 0.9% 250 ml @ 0.02 MCG/KG/MIN 8. 779 mls/hr IV .Q24H [facility] Rx#:[id number] Propofol 1,000 mg In 316.720 80.649 Empty Bag 1 bag @ Titrate IV .Q0M [facility] Rx#: [id number] Output: Gastric Drainage 500 Urine 150 41 3 Other: Voiding Method Indwelling Catheter Indwelling Catheter Indwelling Catheter # Bowel Movements 0 ABP, PAP, CO, CI - Last Documented Arterial Blood Pressure 104/52 - Labs CBC & Chem 7: 07/14/19 03:35 07/14/19 03:35 Labs: Abnormal Lab Results - Last 24 Hours (Table) 07/13/19 07/13/19 07/13/19 Range/Units 15:21 15:25 16:27 WBC (3.8-10.6) k/uL RBC (4.30-5.90) m/uL Plt Count (150-450) k/uL Neutrophils # (1.3-7.7) k/uL Lymphocytes # (1.0-4.8) k/uL ABG pH 7.13 L* (7.35-7.45) ABG pCO2 55 H (35-45) mmHg ABG pO2 67 L (83-108) mmHg ABG HCO3 18 L (21-25) mmol/L ABG O2 Saturation 90.1 L (94-97) % Potassium 5.7 H 5.7 H (3.5-5.1) mmol/L Chloride 114 H (98-107) mmol/L Carbon Dioxide 18 L (22-30) mmol/L BUN 82 H (9-20) mg/dL Creatinine 5.12 H (0.66-1.25) mg/dL Glucose 176 H (74-99) mg/dL POC Glucose (mg/dL) (75-99) mg/dL Calcium 7.8 L (8.4-10.2) mg/dL Total Bilirubin (0.2-1.3) mg/dL AST (17-59) U/L ALT (4-49) U/L Total Protein (6.3-8.2) g/dL Albumin (3.5-5.0) g/dL Amylase (30-110) U/L Lipase (23-300) U/L 07/13/19 07/13/19 07/13/19 Range/Units 17:12 17:56 21:02 WBC (3.8-10.6) k/uL RBC (4.30-5.90) m/uL Plt Count (150-450) k/uL Neutrophils # (1.3-7.7) k/uL Lymphocytes # (1.0-4.8) k/uL ABG pH 7.16 L* (7.35-7.45) ABG pCO2 49 H (35-45) mmHg ABG pO2 74 L (83-108) mmHg ABG HCO3 17 L (21-25) mmol/L ABG O2 Saturation 93.4 L (94-97) % Potassium (3.5-5.1) mmol/L Chloride 113 H (98-107) mmol/L Carbon Dioxide 17 L (22-30) mmol/L BUN 85 H (9-20) mg/dL Creatinine 5.49 H (0.66-1.25) mg/dL Glucose 203 H (74-99) mg/dL POC Glucose (mg/dL) 203 H (75-99) mg/dL Calcium 7.6 L (8.4-10.2) mg/dL Total Bilirubin 2.4 H (0.2-1.3) mg/dL AST 130 H (17-59) U/L ALT 138 H (4-49) U/L Total Protein 4.9 L (6.3-8.2) g/dL Albumin 2.9 L (3.5-5.0) g/dL Amylase (30-110) U/L Lipase (23-300) U/L 07/13/19 07/13/19 07/14/19 Range/Units 21:02 23:36 03:28 WBC 11.3 H (3.8-10.6) k/uL RBC 4.29 L (4.30-5.90) m/uL Plt Count 105 L (150-450) k/uL Neutrophils # (1.3-7.7) k/uL Lymphocytes # (1.0-4.8) k/uL ABG pH (7.35-7.45) ABG pCO2 (35-45) mmHg ABG pO2 172 H (83-108) mmHg ABG HCO3 19 L (21-25) mmol/L ABG O2 Saturation 99.6 H (94-97) % Potassium (3.5-5.1) mmol/L Chloride (98-107) mmol/L Carbon Dioxide (22-30) mmol/L BUN (9-20) mg/dL Creatinine (0.66-1.25) mg/dL Glucose (74-99) mg/dL POC Glucose (mg/dL) 194 H (75-99) mg/dL Calcium (8.4-10.2) mg/dL Total Bilirubin (0.2-1.3) mg/dL AST (17-59) U/L ALT (4-49) U/L Total Protein (6.3-8.2) g/dL Albumin (3.5-5.0) g/dL Amylase (30-110) U/L Lipase (23-300) U/L 07/14/19 07/14/19 07/14/19 Range/Units 03:35 03:35 06:52 WBC (3.8-10.6) k/uL RBC 4.05 L (4.30-5.90) m/uL Plt Count 87 L (150-450) k/uL Neutrophils # 8.4 H (1.3-7.7) k/uL Lymphocytes # 0.5 L (1.0-4.8) k/uL ABG pH (7.35-7.45) ABG pCO2 (35-45) mmHg ABG pO2 (83-108) mmHg ABG HCO3 (21-25) mmol/L ABG O2 Saturation (94-97) % Potassium (3.5-5.1) mmol/L Chloride 112 H (98-107) mmol/L Carbon Dioxide 18 L (22-30) mmol/L BUN 90 H (9-20) mg/dL Creatinine 5.97 H (0.66-1.25) mg/dL Glucose 199 H (74-99) mg/dL POC Glucose (mg/dL) 185 H (75-99) mg/dL Calcium 7.3 L (8.4-10.2) mg/dL Total Bilirubin 1.9 H (0.2-1.3) mg/dL AST 92 H (17-59) U/L ALT 118 H (4-49) U/L Total Protein 4.6 L (6.3-8.2) g/dL Albumin 2.6 L (3.5-5.0) g/dL Amylase 765 H* (30-110) U/L Lipase 2788 H (23-300) U/L 07/14/19 Range/Units 11:27 WBC (3.8-10.6) k/uL RBC (4.30-5.90) m/uL Plt Count (150-450) k/uL Neutrophils # (1.3-7.7) k/uL Lymphocytes # (1.0-4.8) k/uL ABG pH (7.35-7.45) ABG pCO2 (35-45) mmHg ABG pO2 (83-108) mmHg ABG HCO3 (21-25) mmol/L ABG O2 Saturation (94-97) % Potassium (3.5-5.1) mmol/L Chloride (98-107) mmol/L Carbon Dioxide (22-30) mmol/L BUN (9-20) mg/dL Creatinine (0.66-1.25) mg/dL Glucose (74-99) mg/dL POC Glucose (mg/dL) 189 H (75-99) mg/dL Calcium (8.4-10.2) mg/dL Total Bilirubin (0.2-1.3) mg/dL AST (17-59) U/L ALT (4-49) U/L Total Protein (6.3-8.2) g/dL Albumin (3.5-5.0) g/dL Amylase (30-110) U/L Lipase (23-300) U/L Microbiology - Last 24 Hours (Table) 07/11/19 08:17 Blood Culture - Preliminary Blood No Growth after 72 hours 07/13/19 23:53 Sputum Culture - Preliminary Sputum
[2019-07-14] MEDS: LACTATED RINGERS 1,000 ML IV SCH (14:33)
[2019-07-14] MEDS: NOREPINEPHRINE 32 MG in SODIUM CHLORIDE 0.9% 218 ML IV SCH (14:33)
[2019-07-14 15:21] LABS: Ionized Calcium 4.4 mg/dL (4.5-5.3)
[2019-07-14 15:28] LABS: Albumin 2.5 g/dL (3.5-5.0); Calcium 7.1 mg/dL (8.4-10.2); Magnesium 1.9 mg/dL (1.6-2.3); Phosphorus 4.6 mg/dL (2.5-4.5); Potassium 4.8 mmol/L (3.5-5.1); Total Bilirubin 1.6 mg/dL (0.2-1.3); Total Protein 4.4 g/dL (6.3-8.2)
[2019-07-14] MEDS ORDERED: MVI, ADULT NO.4 WITH VIT K 10 ML, TRACE (CONC-1ML/DOSE) 1 ML in AMINO ACID 5%-D15W+LYTE... IV ONE ×3 (16:00)
--- NOTE | 2019-07-14 16:58 | P.PN ---
Progress Note - Text Progress Note Date: 07/14/19 Interval history: This is a pleasant [address] Malloy. Patient for about 2 years has had episodes of upper abdominal epigastric pain lasted for about half an hour. The pain does up to present to become severe within relaxes. Started off about 2 years ago when he states the frequency is increased. More so frequently in the last 2 weeks. Especially yesterday morning patient became rather severe. Epigastric. Started having nausea vomiting. Had fever or chills. Also been getting heartburn. Patient drinks about 12 beers over the weekend. Otherwise in good health. Admitted with-acute cholecystitis with choledocholithiasis, acute gallstone pancreatitis.patient clinically deteriorated and was transferred to the ICU on July 13. Patient intubated. Today-ICU. Intubated. On the ventilator. and family the bedside. FiO2 50%. Patient is on a bicarbonate drip and propofol. After the Levophed drip. Review of systems: patient is intubated Active Medications Acetaminophen (Tylenol Tab) 650 mg PO Q4HR PRN PRN Reason: Fever and/or Mild Pain Albuterol/Ipratropium (Duoneb 0.5 Mg-3 Mg/3 Ml Soln) 3 ml INHALATION RT-TID PRN PRN Reason: Shortness Of Breath Or Wheezing Albuterol/Ipratropium (Duoneb 0.5 Mg-3 Mg/3 Ml Soln) 3 ml INHALATION RT-Q4H [facility] Last Admin: 07/14/19 15:16 Dose: 3 ml Documented by: Chlorhexidine Gluconate (Peridex) 15 ml MUCOUS MEM BID [facility] Last Admin: 07/14/19 08:22 Dose: 15 ml Documented by: Enoxaparin Sodium (Lovenox) 30 mg SQ DAILY [facility] Last Admin: 07/14/19 08:22 Dose: 30 mg Documented by: Hydromorphone HCl (Dilaudid) 0.5 mg IVP Q2H PRN PRN Reason: Pain Last Admin: 07/14/19 03:00 Dose: 0.5 mg Documented by: Hydromorphone HCl (Dilaudid) 2 mg IVP Q3HR PRN PRN Reason: Moderate Pain Last Admin: 07/14/19 14:51 Dose: 2 mg Documented by: Metronidazole 500 mg/ IV (Solution) 100 mls @ 100 mls/hr IVPB Q8HR [facility] Last Admin: 07/14/19 15:42 Dose: 100 mls/hr Documented by: Sodium Chloride (Saline 0.9%) 1,000 mls @ 100 mls/hr IV .Q10H [facility] Last Admin: 07/14/19 15:42 Dose: 100 mls/hr Documented by: Cefepime HCl 1 gm/ Sodium (Chloride) 50 mls @ 100 mls/hr IVPB Q24H [facility] Last Admin: 07/14/19 03:00 Dose: 100 mls/hr Documented by: Lactated Ringer's (Lactated Ringers) 1,000 mls @ 20 mls/hr IV .Q24H [facility] Last Admin: 07/14/19 14:33 Dose: Not Given Documented by: Sodium Bicarbonate 150 ml/ (Dextrose/Water) 1,150 mls @ 100 mls/hr IV .[id number] [facility] Last Admin: 07/14/19 05:34 Dose: 100 mls/hr Documented by: Propofol 1,000 mg/ IV Solution 100 mls @ 0 mls/hr IV .Q0M [facility]; Protocol Last Admin: 07/14/19 15:42 Dose: 40 mcg/kg/min, 33.312 mls/hr Documented by: Acetaminophen 1,000 mg/ IV (Solution) 100 mls @ 400 mls/hr IVPB Q6HR PRN PRN Reason: Fever and/ or Pain Stop: 07/15/19 06:14 Norepinephrine Bitartrate 32 (mg/ Sodium Chloride) 250 mls @ 3.253 mls/hr IV .Q24H [facility]; Protocol Last Admin: 07/14/19 14:33 Dose: 0.05 mcg/kg/min, 3.253 mls/hr Documented by: Parenteral Vitamin Supplement 10 ml/ Chromium/Copper/Manganese/Seleni/Zn 1 ml/Amino Ac/Electrol/Dextrose/Calcium 1,011 mls @ 30 mls/hr IV .Q24H [facility] Stop: 07/15/19 15:59 Amino Ac/Electrol/Dextrose/Calcium (Clinimix E 5%-D15% Solution) 1,000 mls @ 70 mls/hr IV .BY DURATION [facility] Parenteral Vitamin Supplement 10 ml/ Chromium/Copper/Manganese/Seleni/Zn 1 ml/Amino Ac/Electrol/Dextrose/Calcium 1,011 mls @ 70 mls/hr IV .BY DURATION [facility] Insulin Aspart (Novolog) 0 unit SQ Q6HR [facility]; Protocol Last Admin: 07/14/19 11:38 Dose: 2 unit Documented by: Naloxone HCl (Narcan) 0.2 mg IV Q2M PRN PRN Reason: Opioid Reversal Ondansetron HCl (Zofran) 4 mg IVP Q8HR PRN PRN Reason: Nausea And Vomiting Pantoprazole Sodium (Protonix) 40 mg IV DAILY [facility] Last Admin: 07/14/19 08:22 Dose: 40 mg Documented by: Physical examination: VITAL SIGNS: 98, 71, 18, 96/69, 97% on 2 L GENERAL: laying in bed, intubated. EYES: Pupils equal. Conjunctiva normal. HEENT: External appearance of nose and ears normal, oral cavity grossly normal., endotracheal tube in place, NG tube in place NECK: JVD not raised; masses not palpable. HEART: First and second heart sounds are normal; no edema. LUNGS: Respiratory rate increased, decreased breath sounds. ABDOMEN: Soft, upper abdominal tenderness, no guarding or rigidity, , no masses palpable. PSYCH: sedated INVESTIGATIONS, reviewed in the clinical context: Potassium 4.9 bun 90 creatinine 5.97 total bilirubin 1.9 AST 92 ALT 118 amylase L65 lipase 2788 Chest x-ray film personally reviewed by me-basilar infiltrates Previous testing White count 13 hemoglobin 18.4 pressures 59 progression 4.3 crit 1.16 Total bilirubin 2.9 AST 440 ALT 574 Amylase 2794, lipase greater than 20,000 Computed tomography scan-moderate peripancreatic fat stranding, gallstones and a distended gallbladder with gallbladder wall thickening. Abdominal ultrasound-gallbladder thickening with intermittent small stones. Pericholecystic fluid EKG tracing-personally reviewed by me shows normal sinus rhythm nonspecific T- wave changes Assessment: -Acute cholecystitis secondary to choledocholithiasis, with early manifestation of possible ascending cholangitis, not improving -Acute gallstone pancreatitis, , slow to respond -Acute renal failure, likely ATN from hepatorenal, worsening -Essential hypertension -Obesity BMI 34.4 -Hyperkalemia in a patient does take LORENA inhibitor's the setting of renal failure -Severe metabolic acidosis with lactic acidosis -Acute hypoxic severe respiratory failure secondary to noncardiogenic pulmonary edema and/or ARDS Plan: Failed ERCP attempt yesterday. tells me that surgery Dr. Rosales spoke to them. She is postponing the surgery for right now. Continue current medication treatment plan supportive care. Including antibiotics.
--- NOTE | 2019-07-14 17:41 | PN ---
PROGRESS NOTE DATE OF DICTATION: 07/14/2019 Patient is a 54-year-old white male admitted to the hospital with acute biliary pancreatitis. The patient presently remains on the vent, sedated and on low-dose pressors. As per the nursing staff, no events noted through the night. He had an attempted ERCP by Dr. Quintero yesterday, but because of significant ileus it could not be performed; because of a large amount of retained food in the stomach and the scope could not be advanced further. The patient continues to remain on the vent. No fever, chills, night sweats. PHYSICAL EXAMINATION: On the vent. Sedated. Vital signs are stable. Blood pressure 122/85, pulse rate 109 per minute and afebrile. HEENT EXAMINATION: Unremarkable. Conjunctivae pink. Sclerae anicteric. Oral cavity no lesions. NECK: No JVD or lymph node enlargement. CHEST: Clear to auscultation. HEART: Regular rate and rhythm. ABDOMEN: Soft. It was slightly distended. It was non-tender. EXTREMITIES: No pedal edema. NEUROLOGIC: Sedated. On the vent. LABS: Labs from today show WBC 9.5, hemoglobin 13, platelets 87,000. AST and ALT are 59 and 94, respectively. T-bilirubin is down to 1.6. BUN 95, creatinine 6.71. Lipase yesterday was 2788. IMPRESSION: 1. Acute biliary pancreatitis with multi-organ failure. Patient presently on the vent, sedated; also developed acute kidney injury secondary to acute tubular necrosis. Nephrology following the patient closely. He was noted to have elevated lipase and amylase as well as elevated LFTs suggestive of acute biliary pancreatitis. ERCP was attempted yesterday but could not be performed because of significant amount of ileus and retained food in the stomach and the scope could not be advanced into the duodenum. Presently his serum transaminases are improving and bilirubin is also significantly improved. Most likely he has passed the stone spontaneously. 2. Acute kidney injury with worsening BUN and creatinine. 3. Acute respiratory failure, on the vent. RECOMMENDATIONS: 1. Continue with antibiotics. 2. Since his serum transaminases are improving, at this time we will continue to hold off on the ERCP. 3. Patient is already scheduled for gallbladder surgery by Dr. Rosales on Wednesday. 4. Will follow with you closely during his hospital stay. Thank you for this consultation. MMODL / IJN: [id number] /
--- NOTE | 2019-07-14 17:50 | PN ---
PROGRESS NOTE Patient was seen this morning for followup for acute kidney injury. Currently he is on the vent. There are plans for possible surgery later on today. Serum lipase level has been decreasing. Patient is maintained on a small dose of Levophed. He continues to have no significant urine output. Serum creatinine has increased to 5.9 from 5.1 and 3.8 yesterday. Patient is maintained on bicarb drip at 100 mL/hour. PHYSICAL EXAMINATION: On examination this morning, patient was sedated. He was on the vent. FiO2 at 50%. Blood pressure 109/61, heart rate 110 per minute. He is afebrile. EXAMINATION OF THE HEART: S1 and S2. EXAMINATION OF LUNGS: Bilateral breath sounds are heard. ABDOMEN: Soft. Examination of lower extremities shows no significant edema. ASSISTANT FINANCIAL ACCOUNTANT exam cannot be performed. LABS: Hemoglobin 13.0, white cell count 9.5, sodium 140, potassium 4.9, chloride 112. CO2 is 18, BUN 90, creatinine 5.9. Lipase is down to 2788, amylase at 765 from 2060. Bilirubin is down to 1.6 from 4.1 at peak. ASSESSMENT: 1. Acute kidney injury, acute tubular necrosis, currently oliguric renal failure with progressive worsening of acute kidney injury. I have discussed with the family that we will most likely proceed with dialysis in the next 24 to 48 hours. Currently there is no acute indication for dialysis, as patient does not have hyperkalemia, acidosis or significant volume overload. 2. Severe acute pancreatitis, possibly gallstone pancreatitis, with plans for surgery possibly later on today. Lipase and amylase levels have been decreasing with the improvement in bilirubin levels as well. 3. Hypoxic respiratory failure, currently maintained on the vent. 4. Metabolic acidosis secondary to worsening renal failure and pancreatitis, maintained on bicarb drip. 5. Hyperkalemia associated with acute kidney injury, now improved. PLAN: Continue with the bicarb drip. Repeat labs in a.m. Check PT/INR tomorrow in anticipation of possible dialysis catheter placement. I anticipate starting dialysis in the next 24 to 48 hours. MMODL / IJN: [id number] /
[2019-07-14 18:33] LABS: Glucose,Whole Blood 171 mg/dL (75-99)
[2019-07-15 00:05] LABS: Glucose,Whole Blood 233 mg/dL (75-99)
[2019-07-15] MEDS: metroNIDAZOLE-NS PMX 500 MG in SALINE 1 100ML.BAG IVPB SCH ×3 (00:12→16:40)
[2019-07-15] MEDS: INSULIN ASPART (NovoLOG) 100 UNIT/ML VIAL SQ SCH ×4 (00:13→18:38)
[2019-07-15] MEDS: HYDROmorphone 2 MG/ML 1 ML SYRINGE IVP PRN ×5 (01:41→20:17)
[2019-07-15] MEDS: CEFEPIME 1 GM in SODIUM CHLORIDE 0.9% 50 ML IVPB SCH (01:42)
[2019-07-15] MEDS: SODIUM CHLORIDE 0.9% 1,000 ML IV SCH ×3 (01:42→15:26)
[2019-07-15] MEDS: PROPOFOL 1,000 MG in EMPTY BAG 1 BAG IV SCH ×8 (02:26→23:01)
[2019-07-15] MEDS: IPRATROPIUM-ALBUTEROL 3 ML NEB INHALATION SCH ×6 (03:01→23:40)
[2019-07-15 04:07] LABS: ABG Base Excess -3.5 mmol/L; ABG HCO3 22 mmol/L (21-25); ABG Oxygen Saturation 97.4 % (94-97); ABG PCO2 38 mmHg (35-45); ABG PH 7.37 (7.35-7.45); ABG PO2 88 mmHg (83-108); ABG TCO2 23 mmol/L (19-24); Allen Test Performed? Yes
[2019-07-15 04:26] LABS: Prothrombin Time 10.9 sec (9.0-12.0)
[2019-07-15 04:31] LABS: Basophils % (A) 0 %; Eosinophils # (A) 0.3 k/uL (0-0.7); Eosinophils % (A) 2 %; HCT 36.3 % (39.0-53.0); HGB 11.7 gm/dL (13.0-17.5); Lymphocytes # (A) 0.9 k/uL (1.0-4.8); Lymphocytes % (A) 6 %; MCH 31.4 pg (25.0-35.0); MCHC 32.2 g/dL (31.0-37.0); MCV 97.4 fL (80.0-100.0); Mean Platelet Volume 8.9; Monocytes # (A) 0.8 k/uL (0-1.0); Monocytes % (A) 6 %; Neutrophils # (A) 12.8 k/uL (1.3-7.7); Neutrophils % (A) 85 %; Platelet Count 105 k/uL (150-450); RBC 3.73 m/uL (4.30-5.90); RDW 13.7 % (11.5-15.5); WBC 15.1 k/uL (3.8-10.6)
[2019-07-15] MEDS: DEXTROSE 5% IN WATER 1,000 ML with SODIUM BICARB (1 MEQ/ML) 150 ML IV SCH ×2 (04:37→18:53)
[2019-07-15 04:43] LABS: Calcium 7.2 mg/dL (8.4-10.2); Phosphorus 4.8 mg/dL (2.5-4.5); Potassium 4.7 mmol/L (3.5-5.1)
[2019-07-15 05:54] LABS: Glucose,Whole Blood 226 mg/dL (75-99)
--- NOTE | 2019-07-15 06:46 | XR ---
EXAMINATION TYPE: XR chest 1V portable DATE OF EXAM: 07/15/2019 HISTORY: vent. REFERENCE: Previous study dated 07/14/2019. FINDINGS: The patient is ET tube and NG tube remain in place, unchanged from previous. The heart is enlarged. There is bibasilar airspace disease. There are bilateral effusions. IMPRESSION: NO SIGNIFICANT INTERVAL CHANGE IN APPEARANCE.
--- NOTE | 2019-07-15 08:06 | PN ---
PROGRESS NOTE DATE OF DICTATION: July 15, 2019 The patient is a 54-year-old pleasant white male admitted to hospital with acute severe biliary pancreatitis. He has been intubated. Remains on the vent with acute kidney injury with worsening BUN and creatinine. He continues to remain sedated on 5 mcg/minute per hour Levophed. No events overnight. PHYSICAL EXAMINATION: He is sedated. VITAL SIGNS: Stable. Blood pressure is 112/45, pulse rate 112, afebrile. HEENT examination unremarkable. Conjunctivae pink. Sclerae anicteric. Oral cavity no lesions. Neck no JVD or lymph node enlargement. Chest clear to auscultation. HEART: Regular rate and rhythm. ABDOMEN: Soft, it was slightly distended, but it was tympanic. Bowel sounds are positive. Extremities: No pedal edema. Skin no rashes. Neuro sedated, remains on the vent. LABS: From today WBC 15.1, hemoglobin 11.7, platelets 105, BUN is 106, creatinine 8.04. AST, ALT are pending. As of yesterday, AST was 59, ALT was 94, alkaline phosphatase 92 and T-bilirubin was 1.6. Amylase and lipase are also pending. IMPRESSION: 1. Acute severe pancreatitis with multiorgan failure. Remains intubated on the vent with worsening BUN and creatinine. Serum transaminases are gradually improving and bilirubin was 1.6 yesterday. Today it is still pending. 2. Given the fact that LFTs are improving, it is likely that he has spontaneously passed the CBD stone. 3. Acute kidney injury. 4. Acute respiratory failure. 5. Gallstones. RECOMMENDATIONS: 1. Continue with symptomatic and supportive care. 2. We will await labs from today. 3. If the serum transaminases and bilirubin continue to improve, we will continue to hold off on the ERCP at the present time. 4. Patient is scheduled for a gallbladder surgery on Wednesday. Thank you for this consultation. MMODL / IJN: [id number] /
[2019-07-15] MEDS: CHLORHEXIDINE GLUCONATE 15 ML CUP MUCOUS MEM SCH ×2 (09:46→20:18)
[2019-07-15] MEDS: PANTOPRAZOLE 40 MG/10 ML VIAL IV SCH (09:46)
[2019-07-15] MEDS: ENOXAPARIN 30 MG/0.3 ML SYRINGE SQ SCH (09:46)
--- NOTE | 2019-07-15 10:00 | PN ---
PROGRESS NOTE DATE OF SERVICE: July 15, 2019 HOSPITAL COURSE: This is a 54-year-old gentleman who typically sees Dr. Malloy as a primary. His only previous medical problem was hypertension. Anyway, the patient came into the emergency room on July 11 complaining of severe abdominal and back pain. He was found to have gallstone pancreatitis. Initially they attempted an MRCP and ERCP and was scheduled to have a lap cholecystectomy, but his potassium was elevated and those procedures were canceled. During another temp at an ERCP, he was intubated for airway protection, but the ERCP could not be successfully performed. Since that time, he has been on the ventilator here in the ICU. Anyway, the patient is currently still on the mechanical ventilator. Yesterday, we switched from the volume assist-control mode to the VC plus mode also called pressure regulated volume control ventilation. His vent settings include respiratory rate of 28, a targeted tidal volume of 450, FiO2 of 50%, PEEP of 10 to be dropped down to 5, and an inspiratory time TI of 0.8. The patient's blood gases are excellent showing a pO2 of 88, pCO2 of 38 pH 7.37. His IV is saline at 100 to be dropped down to 30, norepinephrine 6 mics per minute, propofol at 50 mcg/kg per minute, D5W with 3 amps of bicarb at 100 mL an hour and TPN at 30 to be increased to 70. The patient did develop acute respiratory distress syndrome, which was moderate in severity with a P/F ratio of 172. Currently, the patient continues to have daily improvement. Chest x-ray has improved. His oxygenation is improved and his acid-base status is improved. Today I talked to the again as I as I have every day. The plan is for surgery sometime early next week. I have discussed this with Dr. Rosales. PHYSICAL EXAMINATION: VITAL SIGNS: Current vital signs are reviewed. Temperature 99.5. Heart rate 112, respiratory rate 28, blood pressure 125/50, CVP is 11-12, saturations 95%. Appears in no acute distress. Currently sedated. HEENT examination is grossly unremarkable. There is an orally placed endotracheal tube and NG tube. NECK: Supple. Full range of motion. No adenopathy. Neck veins are flat. CARDIOVASCULAR examination reveals regular rhythm rate. Heart rate is 112. S1, S2 normal. Heart sounds are distant. LUNGS: Reveal coarse rhonchi bilaterally. No wheezes. No crackles. ABDOMEN: Soft. Bowel sounds are not noted. EXTREMITIES are intact. Some slight edema noted. SKIN: Without rash. NEUROLOGIC: Examination cannot be adequately assessed. LABORATORY DATA: Reviewed. White count 15.1, hemoglobin 11.7, hematocrit 36.3. Platelet count 105,000. PT/INR normal. Electrolytes include a sodium 138, potassium 4.7, chloride 108, CO2 22. Anion gap is 8. BUN and creatinine were 106 and 8.04. His calcium is 7.2 and phosphorus is 4.8. Other labs look pretty good. Microbiologic studies including blood and sputum sampling are negative thus far. Chest x-ray shows a pattern of fluid overload. He has bilateral pleural effusions. MEDICATIONS: Reviewed. Currently, he is on similar medications to what he was on yesterday including a cefepime and Flagyl for antibiotics. He is on GI and DVT prophylaxis. He is getting Tylenol for fever and for pain. He is also getting Dilaudid for pain. He is on updrafts with albuterol and ipratropium bromide every 4 hours. ASSESSMENT: 1. Gallstone pancreatitis, quite severe, with anticipated surgery sometime early next week. 2. Acute respiratory distress syndrome, moderate in severity with a P/F ratio of 172, improved. 3. Non-anion gap metabolic acidosis. 4. Acute kidney injury/acute tubular necrosis. 5. History of hypertension. 6. History of chronic tobacco use. 7. Hypoxemic respiratory failure. 8. Thrombocytopenia. 9. Mild anemia. PLAN: Currently, the patient continues to show improvement. No additional recommendations are made at this time. We will continue to follow closely. I have spoken to the again. The patient is currently on appropriate medications including TPN, propofol for sedation and norepinephrine for blood pressure support. Acid-base status is dramatically improved. Blood gases are reviewed. He was switched from volume assist- control to VC plus yesterday for better comfort and synchrony with the ventilator. That seems to have helped. Additional recommendations and suggestions forthcoming. Critical care time 35 minutes. MMODL / RKN: [id number] /
--- NOTE | 2019-07-15 10:45 | PN ---
PROGRESS NOTE Patient is seen for followup for acute kidney injury, ATN, currently oliguric. Renal function continues to progress with worsening creatinine, which is up to 8.0 today. BUN is at 106. Urine output at about 10 mL an hour. The patient remains on the vent. His FiO2 his PEEP has decreased. He is fairly stable. Levophed is at the same dose at about 0.04 mics per kg. The patient remains on bicarb drip at 100 mL an hour. We will proceed with dialysis today. PHYSICAL EXAMINATION: On examination, blood pressure was 125/50, heart rate 112 per minute. Patient is sedated. He is on the vent. FiO2 50%. Examination of the heart S1, S2. Examination of the lungs, bilateral breath sounds are heard. Abdomen is distended obese, soft. Examination lower extremities shows no significant edema. LABS: Show sodium 138, potassium 4.7, chloride 108 BUN 106, serum creatinine 8.0, hemoglobin 11.7 g/dL. ASSESSMENT: 1. Acute kidney injury, oliguric renal failure, acute tubular necrosis secondary to pancreatitis. 2. Hypoxic respiratory failure. 3. Severe acute pancreatitis currently improving slowly with lipase consistently decreasing. 4. Metabolic acidosis, now improved. PLAN: Decrease bicarb drip to 50 mL an hour. Consult vascular surgery for dialysis catheter placement and we will proceed with first treatment today and then again in a.m. BEAU / NARINDER: [id number] /
--- NOTE | 2019-07-15 11:46 | P.PN ---
Subjective Progress Note Date: 07/15/19 Principal diagnosis: Pancreatitis Patient remains on ventilator. Pressors have been weaned off. His PEEP requirements are also improving. He is having a dialysis catheter placed with plans for hemodialysis later today. White blood cell count 15.1. Liver enzymes yesterday were significantly improved. Objective - Vital Signs Vital signs: Vital Signs Temp 99.5 F 07/15/19 08:00 Pulse 113 H 07/15/19 11:00 Resp 34 H 07/15/19 11:00 BP 117/63 07/15/19 08:00 Pulse Ox 94 L 07/15/19 11:00 Intake & Output 07/14/19 07/15/19 07/15/19 18:59 06:59 18:59 Intake Total 2668.941 2997.221 1434.807 Output Total 533 95 55 Balance 2135.941 2902.221 1379.807 Weight 138.8 kg 143 kg Intake: IV 2300 2640 870 Cefepime 1 gm In Sodium 50 Chloride 0.9% 50 ml @ 100 mls/hr IVPB Q24H [facility] Rx# :[id number] Dextrose 5% in Water 1, 1100 1200 400 000 ml @ 50 mls/hr IV . Q23H [facility] with Sodium Bicarb (1 Meq/ml) 150 ml Rx#:[id number] Sodium Chloride 0.9% 1, 1100 1290 370 000 ml @ 30 mls/hr IV . Q24H [facility] Rx#:[id number] metroNIDAZOLE-NS PMX 500 100 100 100 mg In Saline 1 100ml.bag @ 100 mls/hr IVPB Q8HR [facility] Rx#:[id number] Intake, IV Titration 368.941 357.221 564.807 Amount Mvi, Adult No.4 with Vit 452.5 K 10 ml Trace (Conc-1Ml/ Dose) 1 ml In Amino Acid 5%-D15w+Lytes*E* 1,000 ml @ 30 mls/hr IV .Q24H [facility] Rx#:[id number] Norepinephrine 32 mg In 57.221 12.307 Sodium Chloride 0.9% 218 ml @ 0.05 MCG/KG/MIN 3. 253 mls/hr IV .Q24H [facility] Rx#:[id number] Norepinephrine 4 mg In 28.533 Sodium Chloride 0.9% 250 ml @ 0.02 MCG/KG/MIN 8. 779 mls/hr IV .Q24H [facility] Rx#:[id number] Propofol 1,000 mg In 340.408 300 100 Empty Bag 1 bag @ Titrate IV .Q0M [facility] Rx#: [id number] Output: Gastric Drainage 500 Urine 33 95 55 Other: Voiding Method Indwelling Catheter Indwelling Catheter Indwelling Catheter ABP, PAP, CO, CI - Last Documented Arterial Blood Pressure 133/54 - Exam Abdomen: Soft, mild distention, nontender and ventilator - Labs CBC & Chem 7: 07/15/19 04:05 07/15/19 04:05 Labs: Abnormal Lab Results - Last 24 Hours (Table) 07/14/19 07/14/19 07/15/19 Range/Units 14:50 18:32 00:04 WBC (3.8-10.6) k/uL RBC (4.30-5.90) m/uL Hgb (13.0-17.5) gm/dL Hct (39.0-53.0) % Plt Count (150-450) k/uL Neutrophils # (1.3-7.7) k/uL Lymphocytes # (1.0-4.8) k/uL ABG O2 Saturation (94-97) % Chloride 110 H (98-107) mmol/L Carbon Dioxide 21 L (22-30) mmol/L BUN 95 H (9-20) mg/dL Creatinine 6.79 H (0.66-1.25) mg/dL Glucose 172 H (74-99) mg/dL POC Glucose (mg/dL) 171 H 233 H (75-99) mg/dL Calcium 7.1 L (8.4-10.2) mg/dL Ionized Calcium Bo 4.4 L (4.5-5.3) mg/dL Phosphorus 4.6 H (2.5-4.5) mg/dL Total Bilirubin 1.6 H (0.2-1.3) mg/dL ALT 94 H (4-49) U/L CK-MB (CK-2) (0.0-2.4) ng/mL Total Protein 4.4 L (6.3-8.2) g/dL Albumin 2.5 L (3.5-5.0) g/dL 07/15/19 07/15/1919 Range/Units 04:05 04:05 04:05 WBC 15.1 H (3.8-10.6) k/uL RBC 3.73 L (4.30-5.90) m/uL Hgb 11.7 L (13.0-17.5) gm/dL Hct 36.3 L (39.0-53.0) % Plt Count 105 L (150-450) k/uL Neutrophils # 12.8 H (1.3-7.7) k/uL Lymphocytes # 0.9 L (1.0-4.8) k/uL ABG O2 Saturation (94-97) % Chloride 108 H (98-107) mmol/L Carbon Dioxide (22-30) mmol/L BUN 106 H* (9-20) mg/dL Creatinine 8.04 H* (0.66-1.25) mg/dL Glucose 198 H (74-99) mg/dL POC Glucose (mg/dL) (75-99) mg/dL Calcium 7.2 L (8.4-10.2) mg/dL Ionized Calcium Bo (4.5-5.3) mg/dL Phosphorus 4.8 H (2.5-4.5) mg/dL Total Bilirubin (0.2-1.3) mg/dL ALT (4-49) U/L CK-MB (CK-2) 3.8 H (0.0-2.4) ng/mL Total Protein (6.3-8.2) g/dL Albumin (3.5-5.0) g/dL 07/15/19 07/15/19 Range/Units 04:05 05:53 WBC (3.8-10.6) k/uL RBC (4.30-5.90) m/uL Hgb (13.0-17.5) gm/dL Hct (39.0-53.0) % Plt Count (150-450) k/uL Neutrophils # (1.3-7.7) k/uL Lymphocytes # (1.0-4.8) k/uL ABG O2 Saturation 97.4 H (94-97) % Chloride (98-107) mmol/L Carbon Dioxide (22-30) mmol/L BUN (9-20) mg/dL Creatinine (0.66-1.25) mg/dL Glucose (74-99) mg/dL POC Glucose (mg/dL) 226 H (75-99) mg/dL Calcium (8.4-10.2) mg/dL Ionized Calcium Bo (4.5-5.3) mg/dL Phosphorus (2.5-4.5) mg/dL Total Bilirubin (0.2-1.3) mg/dL ALT (4-49) U/L CK-MB (CK-2) (0.0-2.4) ng/mL Total Protein (6.3-8.2) g/dL Albumin (3.5-5.0) g/dL Microbiology - Last 24 Hours (Table) 07/11/19 08:17 Blood Culture - Preliminary Blood No Growth after 96 hours 07/13/19 23:53 Gram Stain - Preliminary Sputum Sputum Culture - Preliminary Assessment and Plan (1) Pancreatitis Narrative/Plan: 54-year-old male with gallstone pancreatitis and subsequent multisystem organ failure. Patient's liver enzymes improving. Agree with holding off on ERCP at this time. If patient says condition declines further consider reimaging [facility] initial CAT scan showed no evidence of pancreatic necrosis or abscess. Current Visit: Yes Status: Acute Code(s): K85.90 - ACUTE PANCREATITIS WITHOUT NECROSIS OR INFECTION, UNSP SNOMED Code(s): 03205042
[2019-07-15 12:21] LABS: Glucose,Whole Blood 192 mg/dL (75-99)
[2019-07-15] MEDS: NOREPINEPHRINE 32 MG in SODIUM CHLORIDE 0.9% 218 ML IV SCH (15:18)
[2019-07-15] MEDS: LACTATED RINGERS 1,000 ML IV SCH (15:19)
[2019-07-15] MEDS ORDERED: 1: AMINO ACID 5%-D15W+LYTES*E* 1,000 ML 2: MVI, ADULT NO.4 WITH VIT K 10 ML, TRACE (CON IV SCH ×3 (16:00)
[2019-07-15 18:33] LABS: Glucose,Whole Blood 183 mg/dL (75-99)
[2019-07-15] MEDS: [UNRECOGNIZED DRUG - OTHER] IV SCH ×4 (18:53)
[2019-07-15] MEDS: AMINO ACID IV SCH ×4 (18:53)
[2019-07-15] MEDS: PARENTERAL ELECTROLYTES IV SCH ×4 (18:53)
--- NOTE | 2019-07-15 21:06 | P.PN ---
Progress Note - Text Progress Note Date: 07/15/19 Interval history: This is a pleasant [address]. [address] Dr[address] Malloy. Patient for about 2 years has had episodes of upper abdominal epigastric pain lasted for about half an hour. The pain does up to present to become severe within relaxes. Started off about 2 years ago when he states the frequency is increased. More so frequently in the last 2 weeks. Especially yesterday morning patient became rather severe. Epigastric. Started having nausea vomiting. Had fever or chills. Also been getting heartburn. Patient drinks about 12 beers over the weekend. Otherwise in good health. Admitted with-acute cholecystitis with choledocholithiasis, acute gallstone pancreatitis.patient clinically deteriorated and was transferred to the ICU on July 13. Patient intubated. Today-ICU. Intubated. FiO2 50%, PEEP down to 5. Patient is also levo fed. Getting PPN. Hemodialysis was started today half liters being removed. at the bedside. Review of systems: patient is intubated Active Medications Acetaminophen (Tylenol Tab) 650 mg PO Q4HR PRN PRN Reason: Fever and/or Mild Pain Albuterol/Ipratropium (Duoneb 0.5 Mg-3 Mg/3 Ml Soln) 3 ml INHALATION RT-TID PRN PRN Reason: Shortness Of Breath Or Wheezing Albuterol/Ipratropium (Duoneb 0.5 Mg-3 Mg/3 Ml Soln) 3 ml INHALATION RT-Q4H [facility] Last Admin: 07/15/19 19:36 Dose: 3 ml Documented by: Chlorhexidine Gluconate (Peridex) 15 ml MUCOUS MEM BID [facility] Last Admin: 07/15/19 20:18 Dose: 15 ml Documented by: Enoxaparin Sodium (Lovenox) 30 mg SQ DAILY [facility] Last Admin: 07/15/19 09:46 Dose: 30 mg Documented by: Hydromorphone HCl (Dilaudid) 0.5 mg IVP Q2H PRN PRN Reason: Pain Last Admin: 07/14/19 03:00 Dose: 0.5 mg Documented by: Hydromorphone HCl (Dilaudid) 2 mg IVP Q3HR PRN PRN Reason: Moderate Pain Last Admin: 07/15/19 20:17 Dose: 2 mg Documented by: Metronidazole 500 mg/ IV (Solution) 100 mls @ 100 mls/hr IVPB Q8HR [facility] Last Admin: 07/15/19 16:40 Dose: 100 mls/hr Documented by: Sodium Chloride (Saline 0.9%) 1,000 mls @ 30 mls/hr IV .Q24H [facility] Last Admin: 07/15/19 15:26 Dose: 30 mls/hr Documented by: Cefepime HCl 1 gm/ Sodium (Chloride) 50 mls @ 100 mls/hr IVPB Q24H [facility] Last Admin: 07/15/19 01:42 Dose: 100 mls/hr Documented by: Lactated Ringer's (Lactated Ringers) 1,000 mls @ 20 mls/hr IV .Q24H [facility] Last Admin: 07/15/19 15:19 Dose: Not Given Documented by: Sodium Bicarbonate 150 ml/ (Dextrose/Water) 1,150 mls @ 50 mls/hr IV .Q23H [facility] Last Admin: 07/15/19 18:53 Dose: 50 mls/hr Documented by: Propofol 1,000 mg/ IV Solution 100 mls @ 0 mls/hr IV .Q0M [facility]; Protocol Last Admin: 07/15/19 20:18 Dose: 50 mcg/kg/min, 42.9 mls/hr Documented by: Norepinephrine Bitartrate 32 (mg/ Sodium Chloride) 250 mls @ 3.253 mls/hr IV .Q24H [facility]; Protocol Last Admin: 07/15/19 15:18 Dose: Not Given Documented by: Parenteral Electrolytes 20 ml/ (Amino Acids/Dextrose) 1,020 mls @ 70 mls/hr IV .BY DURATION [facility] Last Admin: 07/15/19 18:53 Dose: 70 mls/hr Documented by: Parenteral Electrolytes 20 ml/Parenteral Vitamin Supplement 10 ml/ Chromium/Copper/Manganese/Seleni/Zn 1 ml/Amino Acids/Dextrose 1,031 mls @ 70 mls/hr IV .BY DURATION [facility] Insulin Aspart (Novolog) 0 unit SQ Q6HR [facility]; Protocol Last Admin: 07/15/19 18:38 Dose: 2 unit Documented by: Naloxone HCl (Narcan) 0.2 mg IV Q2M PRN PRN Reason: Opioid Reversal Ondansetron HCl (Zofran) 4 mg IVP Q8HR PRN PRN Reason: Nausea And Vomiting Pantoprazole Sodium (Protonix) 40 mg IV DAILY [facility] Last Admin: 07/15/19 09:46 Dose: 40 mg Documented by: Physical examination: VITAL SIGNS: 98.7, 109, 30, 11 1/50, 97% on the ventilator GENERAL: laying in bed, intubated. EYES: Pupils equal. Conjunctiva normal. HEENT: External appearance of nose and ears normal, oral cavity grossly normal., endotracheal tube in place, NG tube in place NECK: JVD not raised; masses not palpable. HEART: First and second heart sounds are normal; no edema. LUNGS: Respiratory rate increased, decreased breath sounds. ABDOMEN: Soft, upper abdominal tenderness, no guarding or rigidity, , no masses palpable. PSYCH: sedated INVESTIGATIONS, reviewed in the clinical context: white count 15.1 hemoglobin 11.7 platelets 105potassium 4.7 x 1 06 crit. 0.04 Chest x-ray film personally reviewed by me-basilar infiltrates Previous testing White count 13 hemoglobin 18.4 pressures 59 progression 4.3 crit 1.16 Total bilirubin 2.9 AST 440 ALT 574 Amylase 2794, lipase greater than 20,000 Computed tomography scan-moderate peripancreatic fat stranding, gallstones and a distended gallbladder with gallbladder wall thickening. Abdominal ultrasound-gallbladder thickening with intermittent small stones. Pericholecystic fluid EKG tracing-personally reviewed by me shows normal sinus rhythm nonspecific T- wave changes Assessment: -Acute cholecystitis secondary to choledocholithiasis, with possible ascending cholangitis,causing sepsis -Acute gallstone pancreatitis, , slow to respond -Acute renal failure, likely ATN from hepatorenal, worsening, started on renal replacement therapy today -Essential hypertension -Septic and hypovolemic shock, requiring pressure support, now off levo fed today -Obesity BMI 34.4 -Hyperkalemia in a patient does take LORENA inhibitor's the setting of renal failure -Severe metabolic acidosis with lactic acidosis -Acute hypoxic severe respiratory failure secondary to noncardiogenic pulmonary edema and/or ARDS, requiring ventilator support Plan: started on hemodialysis today.a levo fed. On propofol. Also bicarbonate drip. Antibiotics including cefepime and IV Flagyl. Also getting TPN.. Prognosis is guarded. Discussed with at the bedside
[2019-07-16] MEDS: metroNIDAZOLE-NS PMX 500 MG in SALINE 1 100ML.BAG IVPB SCH ×4 (00:10→23:08)
[2019-07-16 00:19] LABS: Glucose,Whole Blood 239 mg/dL (75-99)
[2019-07-16] MEDS: INSULIN ASPART (NovoLOG) 100 UNIT/ML VIAL SQ SCH ×5 (00:20→21:59)
[2019-07-16] MEDS: HYDROmorphone 2 MG/ML 1 ML SYRINGE IVP PRN ×9 (00:32→23:25)
[2019-07-16] MEDS: PROPOFOL 1,000 MG in EMPTY BAG 1 BAG IV SCH ×9 (01:30→21:50)
[2019-07-16] MEDS: CEFEPIME 1 GM in SODIUM CHLORIDE 0.9% 50 ML IVPB SCH (02:09)
[2019-07-16] MEDS: IPRATROPIUM-ALBUTEROL 3 ML NEB INHALATION SCH ×5 (03:26→19:13)
[2019-07-16 04:16] LABS: HCT 33.4 % (39.0-53.0); HGB 10.9 gm/dL (13.0-17.5); MCH 31.8 pg (25.0-35.0); MCHC 32.6 g/dL (31.0-37.0); MCV 97.6 fL (80.0-100.0); Mean Platelet Volume 10.1; RBC 3.42 m/uL (4.30-5.90); RDW 13.6 % (11.5-15.5)
[2019-07-16 04:33] LABS: Albumin 2.1 g/dL (3.5-5.0); Calcium 7.4 mg/dL (8.4-10.2); Magnesium 2.2 mg/dL (1.6-2.3); Phosphorus 6.3 mg/dL (2.5-4.5); Potassium 4.4 mmol/L (3.5-5.1); Total Bilirubin 1.2 mg/dL (0.2-1.3); Total Protein 3.8 g/dL (6.3-8.2)
[2019-07-16 04:37] LABS: Platelet Count 72 k/uL (150-450)
[2019-07-16 04:40] LABS: ABG Base Excess -0.9 mmol/L; ABG HCO3 24 mmol/L (21-25); ABG Oxygen Saturation 91.8 % (94-97); ABG PCO2 37 mmHg (35-45); ABG PH 7.41 (7.35-7.45); ABG PO2 61 mmHg (83-108); ABG TCO2 25 mmol/L (19-24); Allen Test Performed? Yes
[2019-07-16 06:05] LABS: Glucose,Whole Blood 272 mg/dL (75-99)
--- NOTE | 2019-07-16 06:13 | XR ---
EXAMINATION TYPE: XR chest 1V portable DATE OF EXAM: 07/16/2019 HISTORY: vent. REFERENCE: Previous study dated 07/15/2019. FINDINGS: The patient's ET tube and NG tube remain in place, unchanged in appearance. There is a left internal jugular catheter in place. Its tip is in the right atrium. The heart is enlarged. There are bilateral effusions. There is bibasilar airspace disease. There is v ascular congestion and mild interstitial change. IMPRESSION: WORSENING CHANGES OF PULMONARY EDEMA.
[2019-07-16] MEDS: CHLORHEXIDINE GLUCONATE 15 ML CUP MUCOUS MEM SCH ×2 (07:58→20:12)
[2019-07-16] MEDS: ENOXAPARIN 30 MG/0.3 ML SYRINGE SQ SCH (07:58)
--- NOTE | 2019-07-16 08:37 | PN ---
PROGRESS NOTE PULMONARY/CRITICAL CARE PROGRESS NOTE: DATE OF SERVICE: July 16, 2019 This is a 54-year-old male who was admitted on July 11. His primary care provider is Dr. Malloy. His previous medical problems only include hypertension for which he was taking an LORENA inhibitor/hydrochlorothiazide combination. The patient came to the emergency room on July 11 complaining of severe abdominal and back pain. He was found to have gallstone pancreatitis. Initially, an ERCP and MRCP were apparently attempted and/or schedule, but they were canceled because of hyperkalemia. In addition, a laparoscopic cholecystectomy was also canceled for the same reason. During a 2nd attempt at ERCP, the patient was intubated for airway protection, but the ERCP could not be successfully performed. Hence, the patient came back to the ICU on the ventilator and has been on the ventilator since. Unfortunately, because of his severe pancreatitis, he developed acute respiratory distress syndrome, moderate in severity with a PaO2/FiO2 ratio of 172. He was initially on volume assist-control and switched over to pressure regulated volume control or VC plus. His rate is 28 with a spontaneous respiratory rate of 32, a targeted tidal volume of 450, inspiratory time or TI of 0.8, FiO2 of 50%, PEEP of 5. Blood gases show pO2 of 61, a pCO2 of 37, and a pH of 7.41. Currently, he is on saline at 30 mL an hour, propofol at 50 mcg/kg per minute TPN at 70 mL an hour, D5W IV with 3 amps of sodium bicarb at 50 mL an hour and norepinephrine is currently on hold. The patient had hemodialysis for the first time yesterday and 0.5 L was removed and the plan is to remove at least that today. Maybe a bit more. The plan is for a laparoscopic cholecystectomy sometime early next week. The patient is quite ill. We have had ongoing discussions with his on a daily basis. PHYSICAL EXAMINATION: VITAL SIGNS: Current vital signs are reviewed. His temperature is 98.8, heart rate is 100. Respiratory rate is 32, blood pressure 110/52, mean 71. Saturations are 92%-93%. Appears in no acute distress. He is sedated. He is probably a light on his sedation as he does seem to try to open his eyes on verbal stimuli. HEENT examination is grossly unremarkable. There is an orally placed endotracheal tube and NG tube. NECK: Supple. Full range of motion. No adenopathy. Neck veins are flat. CARDIOVASCULAR examination reveals regular rhythm and rate. Heart rate about 100 beats per minute. He is in sinus rhythm. LUNGS: Reveal some coarse rhonchi. No wheezes or crackles. Breath sounds equal. ABDOMEN is distended. No bowel sounds. EXTREMITIES are intact. Slight edema. SKIN: Without rash. NEUROLOGIC: Examination is difficult to assess given his current level of sedation. His labs, x-rays and medications are all reviewed. His chest x-ray from today shows some mild pulmonary edema. LAB DATA: Reviewed. White count 14, hemoglobin 10.9, hematocrit 33.4, platelet count 72,000. Sodium 135, potassium 4.4, chloride 103, CO2 22, anion gap is 10. BUN and creatinine were 102 and 8.09. Albumin is 2.1. Microbiology is still negative. MEDICATIONS: Reviewed. In addition to the drips that I mentioned he was on, he is on Tylenol, cefepime, chlorhexidine, Lovenox, Dilaudid, insulin, updrafts with albuterol and Atrovent q.4, Flagyl, Narcan, Zofran, Protonix, and Protonix. ASSESSMENT: 1. Gallstone pancreatitis, quite severe, with anticipated surgery sometime early next week, i.e. laparoscopic cholecystectomy. 2. Acute respiratory distress syndrome, secondary to acute pancreatitis with a PaO2, FiO2 ratio of 122, suggesting moderate disease. 3. Non-anion gap metabolic acidosis, secondary to renal failure. 4. Acute kidney injury/acute tubular necrosis, currently on hemodialysis. 5. History of benign essential hypertension, previous as an outpatient on an LORENA- inhibitor/diuretic combination. 6. History of chronic tobacco use. 7. Hypoxemic respiratory failure. 8. Thrombocytopenia. 9. Anemia. PLAN: Currently, the patient is holding his own. We have been able to wean him down to 50%, 5 of PEEP. I think he is a little light on sedation. We will increase his propofol a bit and continue with periodic Dilaudid. He received dialysis on July 15 and half a L was removed. He is getting dialysis again with another attempted 0.5 L or more to be removed. He is sedated with propofol. He is getting TPN at 70 mL an hour. He is getting a D5W IV with 3 amps of bicarb at 50 mL an hour. Levophed is currently on hold. He is currently on the pressure regulated volume control modality or VC plus. He seems to like that better the volume assist-control. His overall prognosis remains guarded. We will continue to follow. Critical care time 35 minutes. BEAU / NARINDER: [id number] /
[2019-07-16] MEDS: AMINO ACID IV SCH ×8 (09:34→10:42)
[2019-07-16] MEDS: PARENTERAL ELECTROLYTES IV SCH ×8 (09:34→10:42)
[2019-07-16] MEDS: [UNRECOGNIZED DRUG - OTHER] IV SCH ×8 (09:34→10:42)
--- NOTE | 2019-07-16 09:57 | PN ---
PROGRESS NOTE DATE OF SERVICE: July 16, 2019. REASON FOR CONSULTATION: Abdominal pain. Mr. Antonio is a 54-year-old white male admitted to the hospital with acute severe pancreatitis, presently remains on the vent and was started on hemodialysis for acute kidney injury. He has been off the pressors yesterday. Tolerating hemodialysis well. No new events overnight. PHYSICAL EXAMINATION: Remain sedated on the vent. VITAL SIGNS: Stable blood pressure is 93/56, pulse rate 98, afebrile. HEENT examination unremarkable. Conjunctivae pink. Sclerae anicteric. Oral cavity no lesions. NECK: No JVD or lymph node enlargement. CHEST: Clear to auscultation. HEART: Regular rate and rhythm. ABDOMEN: Soft, slightly distended with tympanic sluggish bowel sounds. EXTREMITIES: No pedal edema. SKIN no rashes. NEUROLOGIC: Sedated on the vent, undergoing hemodialysis. LABORATORY DATA: WBC 14, hemoglobin 10.9, platelets 72,000. AST, ALT 50 and 52 respectively. T- bilirubin and alkaline phosphatase are normal. BUN 102, creatinine 8.09. IMPRESSION: 1. Acute severe pancreatitis. The patient remains on the vent sedated with acute renal failure secondary to acute tubular necrosis, started on hemodialysis today. 2. Elevated LFTs have completely normalized. Most likely patient has spontaneously passed a CBD stone. He had an attempted ERCP by Dr. Quintero 3 days ago, but because of severe ileus and retained food in the stomach, scope could not be performed. 3. Leukocytosis on broad-spectrum antibiotics gradually improving. 4. Ileus appears to be resolving. Remains on TPN. 5. Diabetes mellitus. RECOMMENDATION: 1. Continue with broad-spectrum antibiotics. 2. Continue to monitor labs on a daily basis. 3. Patient is scheduled for a gallbladder surgery tomorrow. 4. No need for an ERCP at the present time since his serum transaminases have completely normalized indicating spontaneous passage of the stone. Thank you for this consultation. MMODL / IJN: [id number] /
--- NOTE | 2019-07-16 10:42 | P.PN ---
Subjective Progress Note Date: 07/16/19 Principal diagnosis: Pancreatitis patient stable on the ventilator. Remains off pressors. Having dialysis again today. Bilirubin 1.2. White blood cell count 14. Objective - Vital Signs Vital signs: Vital Signs Temp 97.6 F 07/16/19 10:39 Pulse 95 07/16/19 10:39 Resp 29 H 07/16/19 10:39 BP 126/73 07/16/19 10:39 Pulse Ox 95 07/16/19 09:00 Intake & Output 07/15/19 07/16/19 07/16/19 18:59 06:59 18:59 Intake Total 2394.807 1490 1360 Output Total 718 005 2831 Balance 4446.669 9563 65 Weight 144.6 kg Intake: IV 1530 1090 240 Cefepime 1 gm In Sodium 50 Chloride 0.9% 50 ml @ 100 mls/hr IVPB Q24H [facility] Rx# :[id number] Dextrose 5% in Water 1, 750 600 150 000 ml @ 50 mls/hr IV . Q23H [facility] with Sodium Bicarb (1 Meq/ml) 150 ml Rx#:[id number] Sodium Chloride 0.9% 1, 580 340 90 000 ml @ 30 mls/hr IV . Q24H [facility] Rx#:[id number] metroNIDAZOLE-NS PMX 500 200 100 mg In Saline 1 100ml.bag @ 100 mls/hr IVPB Q8HR [facility] Rx#:[id number] Intake, IV Titration 864.326 768 6149 Amount Mvi, Adult No.4 with Vit 452.5 K 10 ml Trace (Conc-1Ml/ Dose) 1 ml In Amino Acid 5%-D15w+Lytes*E* 1,000 ml @ 30 mls/hr IV .Q24H [facility] Rx#:[id number] Norepinephrine 32 mg In 12.307 Sodium Chloride 0.9% 218 ml @ 0.05 MCG/KG/MIN 3. 253 mls/hr IV .Q24H [facility] Rx#:[id number] Parenteral Electrolytes 1020 20 ml In Amino Acid 5%- D15w 1,000 ml @ 70 mls/hr IV .BY DURATION [facility] Rx#: [id number] Propofol 1,000 mg In 400 400 100 Empty Bag 1 bag @ Titrate IV .Q0M [facility] Rx#: [id number] Output: Gastric Drainage 300 Urine 165 145 45 Hemodialysis 500 1250 Other: Voiding Method Indwelling Catheter Indwelling Catheter Indwelling Catheter ABP, PAP, CO, CI - Last Documented Arterial Blood Pressure 93/56 - Exam abdomen: Soft, mild distention, nontender - Labs CBC & Chem 7: 07/16/19 04:00 07/16/19 04:00 Labs: Abnormal Lab Results - Last 24 Hours (Table) 07/15/19 07/15/19 07/16/19 Range/Units 12: 18:32 00:17 WBC (3.8-10.6) k/uL RBC (4.30-5.90) m/uL Hgb (13.0-17.5) gm/dL Hct (39.0-53.0) % Plt Count (150-450) k/uL ABG pO2 (83-108) mmHg ABG Total CO2 (19-24) mmol/L ABG O2 Saturation (94-97) % Sodium (137-145) mmol/L BUN (9-20) mg/dL Creatinine (0.66-1.25) mg/dL Glucose (74-99) mg/dL POC Glucose (mg/dL) 192 H 183 H 239 H (75-99) mg/dL Calcium (8.4-10.2) mg/dL Phosphorus (2.5-4.5) mg/dL ALT (4-49) U/L Total Protein (6.3-8.2) g/dL Albumin (3.5-5.0) g/dL 07/16/19 07/16/19 07/16/19 Range/Units 04:00 04:00 04:35 WBC 14.0 H (3.8-10.6) k/uL RBC 3.42 L (4.30-5.90) m/uL Hgb 10.9 L (13.0-17.5) gm/dL Hct 33.4 L (39.0-53.0) % Plt Count 72 L (150-450) k/uL ABG pO2 61 L (83-108) mmHg ABG Total CO2 25 H (19-24) mmol/L ABG O2 Saturation 91.8 L (94-97) % Sodium 135 L (137-145) mmol/L BUN 102 H* (9-20) mg/dL Creatinine 8.09 H* (0.66-1.25) mg/dL Glucose 252 H (74-99) mg/dL POC Glucose (mg/dL) (75-99) mg/dL Calcium 7.4 L (8.4-10.2) mg/dL Phosphorus 6.3 H (2.5-4.5) mg/dL ALT 52 H (4-49) U/L Total Protein 3.8 L (6.3-8.2) g/dL Albumin 2.1 L (3.5-5.0) g/dL 07/16/19 Range/Units 06:02 WBC (3.8-10.6) k/uL RBC (4.30-5.90) m/uL Hgb (13.0-17.5) gm/dL Hct (39.0-53.0) % Plt Count (150-450) k/uL ABG pO2 (83-108) mmHg ABG Total CO2 (19-24) mmol/L ABG O2 Saturation (94-97) % Sodium (137-145) mmol/L BUN (9-20) mg/dL Creatinine (0.66-1.25) mg/dL Glucose (74-99) mg/dL POC Glucose (mg/dL) 272 H (75-99) mg/dL Calcium (8.4-10.2) mg/dL Phosphorus (2.5-4.5) mg/dL ALT (4-49) U/L Total Protein (6.3-8.2) g/dL Albumin (3.5-5.0) g/dL Microbiology - Last 24 Hours (Table) 07/11/19 08:17 Blood Culture - Preliminary Blood No Growth after 120 hours 07/13/19 23:53 Gram Stain - Final Sputum Sputum Culture - Final Assessment and Plan (1) Pancreatitis Narrative/Plan: patient clinically improving. Continue to wean from ventilator as tolerated. Continue dialysis per nephrology. Current Visit: Yes Status: Acute Code(s): K85.90 - ACUTE PANCREATITIS WITHOUT NECROSIS OR INFECTION, UNSP SNOMED Code(s): 88910827
[2019-07-16] MEDS: PANTOPRAZOLE 40 MG/10 ML VIAL IV SCH (10:49)
[2019-07-16 12:04] LABS: Glucose,Whole Blood 236 mg/dL (75-99)
--- NOTE | 2019-07-16 12:25 | PN ---
PROGRESS NOTE The patient is seen for followup for acute kidney injury. He is currently seen on hemodialysis. Patient is tolerating his treatment well. We had about 1-1/2 L of ultrafiltration. He is off Levophed. He is maintained on bicarb drip at 50 mL an hour. FiO2 remains at 50% and PEEP has been decreased. The patient is maintained on TPN as well. Lipase level has been decreasing with last level on July 14 at 2788. ASSESSMENT: 1. Acute kidney injury acute tubular necrosis currently nonoliguric with some improvement in urine output. However, patient remains hemodialysis dependent given the progressive renal failure. We will dialyze him again tomorrow. 2. Metabolic acidosis secondary to renal failure. I will discontinue the bicarb. This is improved and expect further improvement with continued dialysis. 3. Hyperphosphatemia associated with renal failure. Currently patient is not eating. Therefore, we will hold off on phosphate binders. 4. Severe acute pancreatitis with no obvious evidence of biliary duct dilatation. No history of alcohol use. Lipase level has been decreasing. 5. Hypoxic respiratory failure currently improving parameters on the vent. PLAN: Repeat dialysis tomorrow. DC bicarb drip. Continue to avoid nephrotoxic agents. MMODL / IJN: [id number] /
--- NOTE | 2019-07-16 15:38 | P.PN ---
Progress Note - Text Progress Note Date: 07/16/19 Interval history: This is a pleasant 50. Patient Dr. Malloy. Patient for about 2 years has had episodes of upper abdominal epigastric pain lasted for about half an hour. The pain does up to present to become severe within relaxes. Started off about 2 years ago when he states the frequency is increased. More so frequently in the last 2 weeks. Especially yesterday morning patient became rather severe. Epigastric. Started having nausea vomiting. Had fever or chills. Also been getting heartburn. Patient drinks about 12 beers over the weekend. Otherwise in good health. Admitted with-acute cholecystitis with choledocholithiasis, acute gallstone pancreatitis.patient clinically deteriorated and was transferred to the ICU on July 13. Patient intubated. Today-ICU. Intubated. FiO2 50%, PEEP 5. patient has been off the levo fed. Remains on propofol. Was hemodialyzed yesterday and half liters removed. Today liter and a half was removed on hemodialysis. patient's parents and at the bedside. Review of systems: patient is intubated Active Medications Acetaminophen (Tylenol Tab) 650 mg PO Q4HR PRN PRN Reason: Fever and/or Mild Pain Albuterol/Ipratropium (Duoneb 0.5 Mg-3 Mg/3 Ml Soln) 3 ml INHALATION RT-TID PRN PRN Reason: Shortness Of Breath Or Wheezing Albuterol/Ipratropium (Duoneb 0.5 Mg-3 Mg/3 Ml Soln) 3 ml INHALATION RT-Q4H [facility] Last Admin: 07/16/19 11:00 Dose: 3 ml Documented by: Chlorhexidine Gluconate (Peridex) 15 ml MUCOUS MEM BID [facility] Last Admin: 07/16/19 07:58 Dose: 15 ml Documented by: Enoxaparin Sodium (Lovenox) 30 mg SQ DAILY [facility] Last Admin: 07/16/19 07:58 Dose: 30 mg Documented by: Hydromorphone HCl (Dilaudid) 2 mg IVP Q2H PRN PRN Reason: Moderate Pain Metronidazole 500 mg/ IV (Solution) 100 mls @ 100 mls/hr IVPB Q8HR [facility] Last Admin: 07/16/19 10:49 Dose: 100 mls/hr Documented by: Sodium Chloride (Saline 0.9%) 1,000 mls @ 30 mls/hr IV .Q24H [facility] Last Admin: 07/15/19 15:26 Dose: 30 mls/hr Documented by: Cefepime HCl 1 gm/ Sodium (Chloride) 50 mls @ 100 mls/hr IVPB Q24H [facility] Last Admin: 07/16/19 02:09 Dose: 100 mls/hr Documented by: Lactated Ringer's (Lactated Ringers) 1,000 mls @ 20 mls/hr IV .Q24H [facility] Last Admin: 07/15/19 15:19 Dose: Not Given Documented by: Propofol 1,000 mg/ IV Solution 100 mls @ 0 mls/hr IV .Q0M [facility]; Protocol Last Admin: 07/16/19 15:14 Dose: 50 mcg/kg/min, 43.38 mls/hr Documented by: Norepinephrine Bitartrate 32 (mg/ Sodium Chloride) 250 mls @ 3.253 mls/hr IV .Q24H [facility]; Protocol Last Admin: 07/15/19 15:18 Dose: Not Given Documented by: Parenteral Electrolytes 20 ml/ (Amino Acids/Dextrose) 1,020 mls @ 70 mls/hr IV .BY DURATION [facility] Last Admin: 07/16/19 09:34 Dose: 70 mls/hr Documented by: Parenteral Electrolytes 20 ml/Parenteral Vitamin Supplement 10 ml/ Chromium/Copper/Manganese/Seleni/Zn 1 ml/Amino Acids/Dextrose 1,031 mls @ 70 mls/hr IV .BY DURATION [facility] Last Admin: 07/16/19 10:42 Dose: Not Given Documented by: Insulin Aspart (Novolog) 0 unit SQ Q6HR [facility]; Protocol Last Admin: 07/16/19 12:08 Dose: 3 unit Documented by: Naloxone HCl (Narcan) 0.2 mg IV Q2M PRN PRN Reason: Opioid Reversal Ondansetron HCl (Zofran) 4 mg IVP Q8HR PRN PRN Reason: Nausea And Vomiting Pantoprazole Sodium (Protonix) 40 mg IV DAILY [facility] Last Admin: 07/16/19 10:49 Dose: 40 mg Documented by: Physical examination: VITAL SIGNS: 3.9, 98, 14, 125/82, 95% on the ventilator GENERAL: laying in bed, intubated. EYES: Pupils equal. Conjunctiva normal. HEENT: External appearance of nose and ears normal, oral cavity grossly normal., endotracheal tube in place, NG tube in place NECK: JVD not raised; masses not palpable. HEART: First and second heart sounds are normal; no edema. LUNGS: Respiratory rate increased, decreased breath sounds. ABDOMEN: Soft, upper abdominal tenderness, no guarding or rigidity, , no masses palpable. PSYCH: sedated INVESTIGATIONS, reviewed in the clinical context: White count 14 hemoglobin 10.9 potassium 4.4 bun 102 creatinine 8.09 phosphorus 6.3 Chest x-ray film personally reviewed by me-Some scattered infiltrate Previous testing White count 13 hemoglobin 18.4 pressures 59 progression 4.3 crit 1.16 Total bilirubin 2.9 AST 440 ALT 574 Amylase 2794, lipase greater than 20,000 Computed tomography scan-moderate peripancreatic fat stranding, gallstones and a distended gallbladder with gallbladder wall thickening. Abdominal ultrasound-gallbladder thickening with intermittent small stones. Pericholecystic fluid EKG tracing-personally reviewed by me shows normal sinus rhythm nonspecific T- wave changes Assessment: -Acute cholecystitis secondary to choledocholithiasis, with possible ascending cholangitis,causing sepsis -Acute gallstone pancreatitis, , slow to respond -Acute renal failure, likely ATN from hepatorenal, worsening, started on renal replacement therapy on July 15 -Essential hypertension -Septic and hypovolemic shock, requiring pressure support, now off levo fed -Obesity BMI 34.4 -Hyperkalemia in a patient does take LORENA inhibitor's the setting of renal failure -Severe metabolic acidosis with lactic acidosis -Acute hypoxic severe respiratory failure secondary to noncardiogenic pulmonary edema and/or ARDS, requiring ventilator support Plan: care was discussed with the and appearance of the bedside. Patient remains on propofol. Hemodialysis today. Antibiotics are to continue. Supportive care to continue. Prognosis guarded.
[2019-07-16] MEDS: LACTATED RINGERS 1,000 ML IV SCH (16:31)
[2019-07-16] MEDS: NOREPINEPHRINE 32 MG in SODIUM CHLORIDE 0.9% 218 ML IV SCH (16:31)
[2019-07-16 18:06] LABS: Glucose,Whole Blood 279 mg/dL (75-99)
[2019-07-16] MEDS ORDERED: [UNRECOGNIZED DRUG - OTHER] IV SCH ×4 (21:00)
[2019-07-16] MEDS ORDERED: AMINO ACID IV SCH ×4 (21:00)
[2019-07-16] MEDS ORDERED: PARENTERAL ELECTROLYTES IV SCH ×4 (21:00)
[2019-07-16 21:29] LABS: Amylase 96 U/L (30-110)
[2019-07-16 21:57] LABS: Glucose,Whole Blood 264 mg/dL (75-99)
[2019-07-17] MEDS: PROPOFOL 1,000 MG in EMPTY BAG 1 BAG IV SCH ×10 (00:06→23:03)
[2019-07-17] MEDS: IPRATROPIUM-ALBUTEROL 3 ML NEB INHALATION SCH ×6 (01:08→19:58)
[2019-07-17] MEDS: CEFEPIME 1 GM in SODIUM CHLORIDE 0.9% 50 ML IVPB SCH (01:29)
[2019-07-17 01:57] LABS: Glucose,Whole Blood 266 mg/dL (75-99)
[2019-07-17] MEDS: INSULIN ASPART (NovoLOG) 100 UNIT/ML VIAL SQ SCH ×6 (01:59→22:06)
[2019-07-17] MEDS: HYDROmorphone 2 MG/ML 1 ML SYRINGE IVP PRN ×8 (03:00→23:04)
[2019-07-17 04:57] LABS: HCT 33.7 % (39.0-53.0); HGB 11.2 gm/dL (13.0-17.5); MCH 32.4 pg (25.0-35.0); MCHC 33.1 g/dL (31.0-37.0); RBC 3.44 m/uL (4.30-5.90); RDW 13.6 % (11.5-15.5); WBC 15.3 k/uL (3.8-10.6)
[2019-07-17 04:58] LABS: Platelet Count 68 k/uL (150-450)
[2019-07-17 05:13] LABS: ABG HCO3 24 mmol/L (21-25); ABG Oxygen Saturation 93.5 % (94-97); ABG PCO2 38 mmHg (35-45); ABG PH 7.41 (7.35-7.45); ABG PO2 68 mmHg (83-108); ABG TCO2 25 mmol/L (19-24)
[2019-07-17 05:13] LABS: Calcium 7.5 mg/dL (8.4-10.2); Magnesium 2.4 mg/dL (1.6-2.3); Phosphorus 8.2 mg/dL (2.5-4.5); Potassium 4.9 mmol/L (3.5-5.1)
[2019-07-17 05:17] LABS: Allen Test Performed? no
[2019-07-17 06:11] LABS: Glucose,Whole Blood 273 mg/dL (75-99)
--- NOTE | 2019-07-17 08:01 | XR ---
EXAMINATION TYPE: XR chest 1V portable DATE OF EXAM: 07/17/2019 COMPARISON: Prior chest x-ray 07/16/2019 HISTORY: Intubated TECHNIQUE: Single frontal view of the chest is obtained. FINDINGS: Endotracheal tube is overlying appropriate position. NG tube does not show the distal tip placement but is coursing in the expected direction of the stomach. Patient is rotated. There is a le ft jugular central venous catheter with the distal tip overlying the right atrium. No evident pneumot horax. Bibasilar increased density persists. Heart is likely enlarged. Aorta is thought to be dense. Lung volumes are low. There are overlying cardiac leads. IMPRESSION: Findings are similar to prior exam. There may be some slight interval improvement in aer ation, volume status. Expiratory rotated exam.
[2019-07-17 08:05] LABS: Glucose,Whole Blood 251 mg/dL (75-99)
--- NOTE | 2019-07-17 09:23 | P.PN ---
Subjective Patient is seen in follow-up for acute kidney injury, currently hemodialysis dependent. Patient remains intubated. Urine output 10-15 mL an hour. Still quite edematous. Remains off vasopressors. He is receiving TPN at 70 mL an hour. Vital signs are stable. General: The patient appeared well nourished and normally developed. Intubated. HEENT: Head exam is unremarkable. Neck is without jugular venous distension. LUNGS: Lungs are clear to auscultation and percussion. Breath sounds decreased. HEART: Rate and Rhythm are regular. First and second heart sounds normal. No murmurs, rubs or gallops. ABDOMEN: Bowel sounds decreased. EXTREMITITES: 2+ edema. Scrotal edema noted. Objective - Vital Signs Vital signs: Vital Signs Temp 98.8 F 07/17/19 08:00 Pulse 95 07/17/19 08:30 Resp 15 07/17/19 08:30 BP 102/69 07/17/19 08:30 Pulse Ox 95 07/17/19 08:30 Intake & Output 07/16/19 07/17/19 07/17/19 18:59 06:59 18:59 Intake Total 5690.693 4490.622 204.328 Output Total 1475 1010 20 Balance 498.823 7199.622 184.328 Weight 150.6 kg Intake: IV 540 1452 106 0.9 pressure bags 72 6 Cefepime 1 gm In Sodium 50 Chloride 0.9% 50 ml @ 100 mls/hr IVPB Q24H [facility] Rx# :[id number] Dextrose 5% in Water 1, 150 000 ml @ 50 mls/hr IV . Q23H [facility] with Sodium Bicarb (1 Meq/ml) 150 ml Rx#:[id number] Parenteral Electrolytes 560 70 20 ml In Amino Acid 5%- D15w 1,000 ml @ 70 mls/hr IV .BY DURATION [facility] Rx#: [id number] Parenteral Electrolytes 280 20 ml Mvi, Adult No.4 with Vit K 10 ml Trace ( Conc-1Ml/Dose) 1 ml In Amino Acid 5%-D15w 1,000 ml @ 70 mls/hr IV .BY DURATION [facility] Rx#: [id number] Sodium Chloride 0.9% 1, 90 390 30 000 ml @ 30 mls/hr IV . Q24H [facility] Rx#:[id number] metroNIDAZOLE-NS PMX 500 300 100 mg In Saline 1 100ml.bag @ 100 mls/hr IVPB Q8HR [facility] Rx#:[id number] Intake, IV Titration 1433.868 571.622 98.328 Amount Parenteral Electrolytes 1020 20 ml In Amino Acid 5%- D15w 1,000 ml @ 70 mls/hr IV .BY DURATION [facility] Rx#: [id number] Propofol 1,000 mg In 383.868 571.622 98.328 Empty Bag 1 bag @ Titrate IV .Q0M [facility] Rx#: [id number] Sodium Chloride 0.9% 1, 30 000 ml @ 30 mls/hr IV . Q24H [facility] Rx#:[id number] Output: Gastric Drainage 850 Urine 225 160 20 Hemodialysis 1250 Other: Voiding Method Indwelling Catheter Indwelling Catheter Indwelling Catheter # Bowel Movements 0 ABP, PAP, CO, CI - Last Documented Arterial Blood Pressure 98/54 - Labs CBC & Chem 7: 07/17/19 04:45 07/17/19 04:45 Labs: Abnormal Lab Results - Last 24 Hours (Table) 07/16/19 07/16/19 07/16/19 Range/Units 04:00 12:03 18:04 WBC (3.8-10.6) k/uL RBC (4.30-5.90) m/uL Hgb (13.0-17.5) gm/dL Hct (39.0-53.0) % Plt Count (150-450) k/uL ABG pO2 (83-108) mmHg ABG Total CO2 (19-24) mmol/L ABG O2 Saturation (94-97) % Sodium (137-145) mmol/L BUN (9-20) mg/dL Creatinine (0.66-1.25) mg/dL Glucose (74-99) mg/dL POC Glucose (mg/dL) 236 H 279 H (75-99) mg/dL Calcium (8.4-10.2) mg/dL Phosphorus (2.5-4.5) mg/dL Magnesium (1.6-2.3) mg/dL Lipase 429 H (23-300) U/L 07/16/19 07/17/19 07/17/19 Range/Units 21:56 01:56 04:45 WBC (3.8-10.6) k/uL RBC (4.30-5.90) m/uL Hgb (13.0-17.5) gm/dL Hct (39.0-53.0) % Plt Count (150-450) k/uL ABG pO2 (83-108) mmHg ABG Total CO2 (19-24) mmol/L ABG O2 Saturation (94-97) % Sodium 134 L (137-145) mmol/L BUN 96 H (9-20) mg/dL Creatinine 7.78 H* (0.66-1.25) mg/dL Glucose 265 H (74-99) mg/dL POC Glucose (mg/dL) 264 H 266 H (75-99) mg/dL Calcium 7.5 L (8.4-10.2) mg/dL Phosphorus 8.2 H (2.5-4.5) mg/dL Magnesium 2.4 H (1.6-2.3) mg/dL Lipase 356 H (23-300) U/L 07/17/19 07/17/19 07/17/19 Range/Units 04:45 05:11 06:09 WBC 15.3 H (3.8-10.6) k/uL RBC 3.44 L (4.30-5.90) m/uL Hgb 11.2 L (13.0-17.5) gm/dL Hct 33.7 L (39.0-53.0) % Plt Count 68 L (150-450) k/uL ABG pO2 68 L (83-108) mmHg ABG Total CO2 25 H (19-24) mmol/L ABG O2 Saturation 93.5 L (94-97) % Sodium (137-145) mmol/L BUN (9-20) mg/dL Creatinine (0.66-1.25) mg/dL Glucose (74-99) mg/dL POC Glucose (mg/dL) 273 H (75-99) mg/dL Calcium (8.4-10.2) mg/dL Phosphorus (2.5-4.5) mg/dL Magnesium (1.6-2.3) mg/dL Lipase (23-300) U/L 07/17/19 Range/Units 08:03 WBC (3.8-10.6) k/uL RBC (4.30-5.90) m/uL Hgb (13.0-17.5) gm/dL Hct (39.0-53.0) % Plt Count (150-450) k/uL ABG pO2 (83-108) mmHg ABG Total CO2 (19-24) mmol/L ABG O2 Saturation (94-97) % Sodium (137-145) mmol/L BUN (9-20) mg/dL Creatinine (0.66-1.25) mg/dL Glucose (74-99) mg/dL POC Glucose (mg/dL) 251 H (75-99) mg/dL Calcium (8.4-10.2) mg/dL Phosphorus (2.5-4.5) mg/dL Magnesium (1.6-2.3) mg/dL Lipase (23-300) U/L Microbiology - Last 24 Hours (Table) 07/11/19 08:17 Blood Culture - Preliminary Blood No Growth after 120 hours 07/13/19 23:53 Gram Stain - Final Sputum Sputum Culture - Final Assessment and Plan Plan: Assessment: 1. Acute kidney injury secondary to ATN secondary to septic shock, currently hemodialysis dependent. Started on hemodialysis July 15. Baseline creatinine is near 1 and peaked at greater than 8 this admission. 2. Volume overload. 3. Severe acute pancreatitis. ERCP was attempted earlier this admission. Sc heduled for gallbladder surgery today. 4. Hyperphosphatemia secondary to acute kidney injury. 5. Ileus maintained on TPN. 6. Metabolic acidosis secondary to acute kidney injury. Better. Plan: Currently seen while undergoing hemodialysis. Another treatment tomorrow. Avoid nephrotoxins. Continue to monitor renal function and urine output. Check UA.
--- NOTE | 2019-07-17 10:11 | P.PN ---
Subjective Progress Note Date: 07/17/19 On 07/17/2019 I'm seeing the patient for a follow-up. I reviewed the events that occurredpast few days and currently the patient is intubated on a mechanical ventilator. This morning, the patient is sedated with propofol which is running at 50 g per KG per minute and is calm and comfortable. He is was sedated and since has been with the mechanical ventilator. He is on assist control mode of ventilator slightly raised of 28 with an FiO2 of 50% and a PEEP of 5 and a of 5. His blood gases from today show a pH of 7.40 with a pCO2 of 37 and pO2 of 67. Chest x-ray still showing evidence of pulmonary edema. ET tube is in a good location. The patient is undergoing daily dialysis. This is his first session of dialysis which is being done. The temporary dialysis catheter is in his groin. He is tolerating dialysis well and he is currently on no pressors. Urine output is in order of 10-15 mL an hour. In terms of his electrolytes, the patient has a creatinine of 7.7 with a BUN of 96. His sodium is at 134. Potassium is at 4.9. His white cell count is at 15.3 with a hemoglobin of 11.2. His liver function tests are essentially improved and normalized. His alkaline phosphatase is down to 19. His lipase is down to 356 with amylase level of 46. The patient is afebrile. Is covered with a combination of IV cefepime and Flagyl. Is receiving TPN for nutritional support. The plan is to take this patient to the operating room for a laparoscopic cholecystectomy. Noted the ultrasound of the gallbladder showed cholecystitis with cholelithiasis and the common bile duct was within normal limits. The patient is receiving TPN for nutritional support. Objective - Vital Signs Vital signs: Vital Signs Temp 98.8 F 07/17/19 08:00 Pulse 95 07/17/19 08:30 Resp 15 07/17/19 08:30 BP 102/69 07/17/19 08:30 Pulse Ox 95 07/17/19 08:30 Intake & Output 07/16/19 07/17/19 07/17/19 18:59 06:59 18:59 Intake Total 4393.648 9234.622 204.328 Output Total 1475 1010 20 Balance 676.609 1834.622 184.328 Weight 150.6 kg Intake: IV 540 1452 106 0.9 pressure bags 72 6 Cefepime 1 gm In Sodium 50 Chloride 0.9% 50 ml @ 100 mls/hr IVPB Q24H [facility] Rx# :[id number] Dextrose 5% in Water 1, 150 000 ml @ 50 mls/hr IV . Q23H [facility] with Sodium Bicarb (1 Meq/ml) 150 ml Rx#:[id number] Parenteral Electrolytes 560 70 20 ml In Amino Acid 5%- D15w 1,000 ml @ 70 mls/hr IV .BY DURATION [facility] Rx#: [id number] Parenteral Electrolytes 280 20 ml Mvi, Adult No.4 with Vit K 10 ml Trace ( Conc-1Ml/Dose) 1 ml In Amino Acid 5%-D15w 1,000 ml @ 70 mls/hr IV .BY DURATION [facility] Rx#: [id number] Sodium Chloride 0.9% 1, 90 390 30 000 ml @ 30 mls/hr IV . Q24H [facility] Rx#:[id number] metroNIDAZOLE-NS PMX 500 300 100 mg In Saline 1 100ml.bag @ 100 mls/hr IVPB Q8HR [facility] Rx#:[id number] Intake, IV Titration 1433.868 571.622 98.328 Amount Parenteral Electrolytes 1020 20 ml In Amino Acid 5%- D15w 1,000 ml @ 70 mls/hr IV .BY DURATION [facility] Rx#: [id number] Propofol 1,000 mg In 383.868 571.622 98.328 Empty Bag 1 bag @ Titrate IV .Q0M [facility] Rx#: [id number] Sodium Chloride 0.9% 1, 30 000 ml @ 30 mls/hr IV . Q24H [facility] Rx#:[id number] Output: Gastric Drainage 850 Urine 225 160 20 Hemodialysis 1250 Other: Voiding Method Indwelling Catheter Indwelling Catheter Indwelling Catheter # Bowel Movements 0 ABP, PAP, CO, CI - Last Documented Arterial Blood Pressure 98/54 - Exam Gen. appearance, comfortable likely this is intubated on a mechanical ventilato r. Orogastric and orotracheal tube are both in place. The patient has a right IJ triple-lumen catheter in place. Head exam was generally normal. There was no scleral icterus or corneal arcus. Mucous membranes were moist. Neck was supple and without jugular venous distension, thyromegaly, or carotid bruits. Carotids were easily palpable bilaterally. There was no adenopathy. Lungs sounds are diminished bilaterally especially in the lung bases. No wheezes or rhonchi. Cardiac exam revealed the PMI to be normally situated and sized. The rhythm was regular and no extrasystoles were noted during several minutes of auscultation. The first and second heart sounds were normal and physiologic splitting of the second heart sound was noted. There were no murmurs, rubs, clicks, or gallops. Abdominal exam revealed normal bowel sounds. The abdomen was soft, non-tender, and without masses, organomegaly, or appreciable enlargement of the abdominal aorta.Bowel sounds are hypoactive at this point in time. No direct tenderness or rebound tenderness or guarding. No ascites. Extremities revealed +1 pitting edema and there is no cyanosis or clubbing at this point in time. Neurologic the patient is easily arousable off sedation. His currently well sedated with propofol. Skin the patient has a temporary dialysis catheter in his right femoral vein. - Labs CBC & Chem 7: 07/17/19 04:45 07/17/19 04:45 Labs: Abnormal Lab Results - Last 24 Hours (Table) 07/16/19 07/16/19 07/16/19 Range/Units 04:00 12:03 18:04 WBC (3.8-10.6) k/uL RBC (4.30-5.90) m/uL Hgb (13.0-17.5) gm/dL Hct (39.0-53.0) % Plt Count (150-450) k/uL ABG pO2 (83-108) mmHg ABG Total CO2 (19-24) mmol/L ABG O2 Saturation (94-97) % Sodium (137-145) mmol/L BUN (9-20) mg/dL Creatinine (0.66-1.25) mg/dL Glucose (74-99) mg/dL POC Glucose (mg/dL) 236 H 279 H (75-99) mg/dL Calcium (8.4-10.2) mg/dL Phosphorus (2.5-4.5) mg/dL Magnesium (1.6-2.3) mg/dL Lipase 429 H (23-300) U/L 07/16/19 07/17/1919 Range/Units 21:56 01:56 04:45 WBC (3.8-10.6) k/uL RBC (4.30-5.90) m/uL Hgb (13.0-17.5) gm/dL Hct (39.0-53.0) % Plt Count (150-450) k/uL ABG pO2 (83-108) mmHg ABG Total CO2 (19-24) mmol/L ABG O2 Saturation (94-97) % Sodium 134 L (137-145) mmol/L BUN 96 H (9-20) mg/dL Creatinine 7.78 H* (0.66-1.25) mg/dL Glucose 265 H (74-99) mg/dL POC Glucose (mg/dL) 264 H 266 H (75-99) mg/dL Calcium 7.5 L (8.4-10.2) mg/dL Phosphorus 8.2 H (2.5-4.5) mg/dL Magnesium 2.4 H (1.6-2.3) mg/dL Lipase 356 H (23-300) U/L 07/17/19 07/17/19 07/17/19 Range/Units 04:45 05:11 06:09 WBC 15.3 H (3.8-10.6) k/uL RBC 3.44 L (4.30-5.90) m/uL Hgb 11.2 L (13.0-17.5) gm/dL Hct 33.7 L (39.0-53.0) % Plt Count 68 L (150-450) k/uL ABG pO2 68 L (83-108) mmHg ABG Total CO2 25 H (19-24) mmol/L ABG O2 Saturation 93.5 L (94-97) % Sodium (137-145) mmol/L BUN (9-20) mg/dL Creatinine (0.66-1.25) mg/dL Glucose (74-99) mg/dL POC Glucose (mg/dL) 273 H (75-99) mg/dL Calcium (8.4-10.2) mg/dL Phosphorus (2.5-4.5) mg/dL Magnesium (1.6-2.3) mg/dL Lipase (23-300) U/L 07/17/19 Range/Units 08:03 WBC (3.8-10.6) k/uL RBC (4.30-5.90) m/uL Hgb (13.0-17.5) gm/dL Hct (39.0-53.0) % Plt Count (150-450) k/uL ABG pO2 (83-108) mmHg ABG Total CO2 (19-24) mmol/L ABG O2 Saturation (94-97) % Sodium (137-145) mmol/L BUN (9-20) mg/dL Creatinine (0.66-1.25) mg/dL Glucose (74-99) mg/dL POC Glucose (mg/dL) 251 H (75-99) mg/dL Calcium (8.4-10.2) mg/dL Phosphorus (2.5-4.5) mg/dL Magnesium (1.6-2.3) mg/dL Lipase (23-300) U/L Microbiology - Last 24 Hours (Table) 07/11/19 08:17 Blood Culture - Preliminary Blood No Growth after 120 hours 07/13/19 23:53 Gram Stain - Final Sputum Sputum Culture - Final Assessment and Plan Plan: 1. Gallstone pancreatitis, improving. The patient also has an acute cholecystitis with cholelithiasis. The common bile duct was within normal limits. Throat. ERCPs and currently the patient is looking for a laparoscopic cholecystectomy 2 severe pancreatitis, improving 3 acute hypoxic respiratory failure with development of pulmonary edema and [place] pleural effusions, underlying ARDS cannot be completely excluded in the s etting of an acute pancreatitis 4 acute kidney injury currently on hemodialysis 5 hypotension, recovered and currently the patient is off pressors 6 alcoholism 7 smoker 8 hypertension history of 9 bilateral hearing loss Plan Vent support IV fluids to KVO TPN for nutritional support Flagyl and cefepime as empiric antibiotic coverage propofol for sedation Dialysis per nephrology Failed ERCP, awaiting postoperative cholecystectomy Case was discussed with the family. Condition was explained. We'll continue to follow. Condition is critical. Evaluation was done and more than 30 minutes. Time with Patient: Greater than 30
[2019-07-17] MEDS: ENOXAPARIN 30 MG/0.3 ML SYRINGE SQ SCH (10:35)
[2019-07-17] MEDS: metroNIDAZOLE-NS PMX 500 MG in SALINE 1 100ML.BAG IVPB SCH ×3 (10:35→23:04)
[2019-07-17] MEDS: PANTOPRAZOLE 40 MG/10 ML VIAL IV SCH (10:35)
[2019-07-17] MEDS: CHLORHEXIDINE GLUCONATE 15 ML CUP MUCOUS MEM SCH ×2 (10:36→20:37)
[2019-07-17] MEDS ORDERED: PARENTERAL ELECTROLYTES IV SCH ×4 (11:00)
[2019-07-17] MEDS ORDERED: AMINO ACID IV SCH ×4 (11:00)
[2019-07-17] MEDS ORDERED: [UNRECOGNIZED DRUG - OTHER] IV SCH ×4 (11:00)
[2019-07-17 11:58] LABS: Glucose,Whole Blood 181 mg/dL (75-99)
[2019-07-17 12:22] LABS: Albumin 2.3 g/dL (3.5-5.0); Bilirubin, Conjugated 0.3 mg/dL (0.0-0.3); Bilirubin, Delta 1.1 mg/dL (0.0-0.2); Total Bilirubin 1.4 mg/dL (0.2-1.3); Total Protein 4.2 g/dL (6.3-8.2)
[2019-07-17] MEDS: SODIUM ACETATE IV SCH ×12 (12:28→13:01)
[2019-07-17] MEDS: CALCIUM GLUCONATE IV SCH ×12 (12:28→13:01)
[2019-07-17] MEDS: POTASSIUM CHLORIDE IV SCH ×12 (12:28→13:01)
[2019-07-17] MEDS: [UNRECOGNIZED DRUG - OTHER] IV SCH ×12 (12:28→13:01)
[2019-07-17] MEDS ORDERED: fentaNYL (PF) 50 MCG/ML 2 ML AMP ONE (13:01)
[2019-07-17] MEDS ORDERED: MIDAZOLAM 2 MG/2 ML VIAL ONE (13:01)
[2019-07-17] MEDS ORDERED: CISATRACURIUM 2 MG/ML 5 ML VIAL IV ONE (13:01)
[2019-07-17] MEDS ORDERED: CISATRACURIUM 10 MG/ML 20 ML VIAL IV ONE ×2 (13:01)
[2019-07-17] MEDS ORDERED: PHENYLEPHRINE-0.9% NACL SYG 1 MG/10 ML SYRINGE ONE (13:01)
[2019-07-17] MEDS ORDERED: ROCURONIUM BROMIDE 10 MG/ML 10 ML VIAL IV ONE (13:01)
[2019-07-17] MEDS ORDERED: SODIUM CHLORIDE 0.9% 1,000 ML IV ONE ×2 (13:08→13:36)
[2019-07-17] MEDS ORDERED: BUPIVACAIN-EPI 0.25%-1:200,000 30 ML VIAL SQ ONE (13:35)
[2019-07-17] MEDS ORDERED: LACTATED RINGERS 1,000 ML IV ONE (14:50)
[2019-07-17 15:03] LABS: HCT 33.1 % (39.0-53.0); HGB 10.9 gm/dL (13.0-17.5); MCH 31.9 pg (25.0-35.0); MCHC 32.7 g/dL (31.0-37.0); MCV 97.5 fL (80.0-100.0); Mean Platelet Volume 10.7; RDW 13.5 % (11.5-15.5); WBC 24.4 k/uL (3.8-10.6)
[2019-07-17 15:05] LABS: Platelet Count 80 k/uL (150-450)
[2019-07-17 15:40] LABS: Glucose,Whole Blood 224 mg/dL (75-99)
[2019-07-17] MEDS: SODIUM CHLORIDE 0.9% 1,000 ML IV SCH (15:59)
[2019-07-17 16:26] LABS: ABG HCO3 23 mmol/L (21-25); ABG Oxygen Saturation 94.7 % (94-97); ABG PCO2 52 mmHg (35-45); ABG PH 7.26 (7.35-7.45); ABG PO2 85 mmHg (83-108); ABG TCO2 25 mmol/L (19-24); Allen Test Performed? Yes
[2019-07-17 17:08] LABS: Hepatitis B Surface AB- Quant 3.5 mIU/mL; Hepatitis B Surface Antibody Non-Reactive (Non-Reactive); Hepatitis B Surface Antigen Non-Reactive (Non-Reactive)
[2019-07-17 18:37] LABS: Glucose,Whole Blood 260 mg/dL (75-99)
[2019-07-17 18:57] LABS: HCT 29.2 % (39.0-53.0); HGB 9.5 gm/dL (13.0-17.5); MCH 31.8 pg (25.0-35.0); MCHC 32.6 g/dL (31.0-37.0); MCV 97.4 fL (80.0-100.0); Mean Platelet Volume 10.5; RBC 2.99 m/uL (4.30-5.90); RDW 13.4 % (11.5-15.5); WBC 16.9 k/uL (3.8-10.6)
[2019-07-17 19:00] LABS: Platelet Count 58 k/uL (150-450)
[2019-07-17] MEDS: NOREPINEPHRINE 32 MG in SODIUM CHLORIDE 0.9% 218 ML IV SCH (19:39)
[2019-07-17 22:00] LABS: Glucose,Whole Blood 227 mg/dL (75-99)
--- NOTE | 2019-07-17 22:09 | P.PN ---
Progress Note - Text Progress Note Date: 07/17/19 Interval history: This is a pleasant 50. Patient Dr. Malloy. Patient for about 2 years has had episodes of upper abdominal epigastric pain lasted for about half an hour. The pain does up to present to become severe within relaxes. Started off about 2 years ago when he states the frequency is increased. More so frequently in the last 2 weeks. Especially yesterday morning patient became rather severe. Epigastric. Started having nausea vomiting. Had fever or chills. Also been getting heartburn. Patient drinks about 12 beers over the weekend. Otherwise in good health. Admitted with-acute cholecystitis with choledocholithiasis, acute gallstone pancreatitis.patient clinically deteriorated and was transferred to the ICU on July 13. Patient intubated.when into renal failure. Started with hemodialysis Today-ICU. sulfa patient this evening after surgery. Large gallstone was removed. Laparoscopic was converted to open cholecystectomy. Has a MARICHUY drain in place. Putting out anywhere from 50-100 mL an hour . Remains on the ventilator.FiO2 70 and PEEP of 5%. Back on propofol drip. Sedated. Review of systems: patient is intubated Active Medications Acetaminophen (Tylenol Tab) 650 mg PO Q4HR PRN PRN Reason: Fever and/or Mild Pain Albuterol/Ipratropium (Duoneb 0.5 Mg-3 Mg/3 Ml Soln) 3 ml INHALATION RT-TID PRN PRN Reason: Shortness Of Breath Or Wheezing Albuterol/Ipratropium (Duoneb 0.5 Mg-3 Mg/3 Ml Soln) 3 ml INHALATION RT-Q4H [facility] Last Admin: 07/17/19 19:58 Dose: 3 ml Documented by: Chlorhexidine Gluconate (Peridex) 15 ml MUCOUS MEM BID [facility] Last Admin: 07/17/19 20:37 Dose: 15 ml Documented by: Enoxaparin Sodium (Lovenox) 30 mg SQ DAILY [facility] Last Admin: 07/17/19 10:35 Dose: 30 mg Documented by: Hydromorphone HCl (Dilaudid) 2 mg IVP Q2H PRN PRN Reason: Moderate Pain Last Admin: 07/17/19 20:45 Dose: 2 mg Documented by: Metronidazole 500 mg/ IV (Solution) 100 mls @ 100 mls/hr IVPB Q8HR [facility] Last Admin: 07/17/19 16:10 Dose: 100 mls/hr Documented by: Sodium Chloride (Saline 0.9%) 1,000 mls @ 30 mls/hr IV .Q24H [facility] Last Admin: 07/17/19 15:59 Dose: 30 mls/hr Documented by: Cefepime HCl 1 gm/ Sodium (Chloride) 50 mls @ 100 mls/hr IVPB Q24H [facility] Last Admin: 07/17/19 01:29 Dose: 100 mls/hr Documented by: Propofol 1,000 mg/ IV Solution 100 mls @ 0 mls/hr IV .Q0M [facility]; Protocol Last Admin: 07/17/19 20:38 Dose: 50 mcg/kg/min, 45.18 mls/hr Documented by: Norepinephrine Bitartrate 32 (mg/ Sodium Chloride) 250 mls @ 3.253 mls/hr IV .Q24H [facility]; Protocol Last Admin: 07/17/19 19:39 Dose: Not Given Documented by: Sodium Acetate 40 meq/Potassium Chloride 10 meq/Calcium Gluconate 1 gm/ Amino Acids/Dextrose 1,035 mls @ 70 mls/hr IV .BY DURATION [facility] Last Admin: 07/17/19 12:28 Dose: 70 mls/hr Documented by: Parenteral Vitamin Supplement 10 ml/ Chromium/Copper/Manganese/Seleni/Zn 1 ml /Sodium Acetate 40 meq/Potassium Chloride 10 meq/Calcium Gluconate 1 gm/ Amino Acids/Dextrose 1,046 mls @ 70 mls/hr IV .BY DURATION [facility] Last Admin: 07/17/19 13:01 Dose: 70 mls/hr Documented by: Insulin Aspart (Novolog) 0 unit SQ Q4H [facility]; Protocol Last Admin: 07/17/19 18:44 Dose: 4 unit Documented by: Naloxone HCl (Narcan) 0.2 mg IV Q2M PRN PRN Reason: Opioid Reversal Ondansetron HCl (Zofran) 4 mg IVP Q8HR PRN PRN Reason: Nausea And Vomiting Pantoprazole Sodium (Protonix) 40 mg IV DAILY [facility] Last Admin: 07/17/19 10:35 Dose: 40 mg Documented by: Physical examination: VITAL SIGNS:98.7, 98, 24, 110/58, 98% on the ventilator GENERAL: laying in bed, intubated. EYES: Pupils equal. Conjunctiva normal. HEENT: External appearance of nose and ears normal, oral cavity grossly normal., endotracheal tube in place, NG tube in place NECK: JVD not raised; masses not palpable. HEART: First and second heart sounds are normal; no edema. LUNGS: Respiratory rate increased, decreased breath sounds. ABDOMEN: Soft, dressing over the incision, MARICHUY drain is present. PSYCH: sedated INVESTIGATIONS, reviewed in the clinical context: white count 15.3 hemoglobin 11.2 bun 96 creatinine 7.78; postoperative hemoglobin 9.5 amylase 46 lipase 356 Previous testing White count 13 hemoglobin 18.4 pressures 59 progression 4.3 crit 1.16 Total bilirubin 2.9 AST 440 ALT 574 Amylase 2794, lipase greater than 20,000 Computed tomography scan-moderate peripancreatic fat stranding, gallstones and a distended gallbladder with gallbladder wall thickening. Abdominal ultrasound-gallbladder thickening with intermittent small stones. Pericholecystic fluid EKG tracing-personally reviewed by me shows normal sinus rhythm nonspecific T- wave changes Assessment: -Acute cholecystitis secondary to choledocholithiasis, with possible ascending cholangitis,causing sepsis, status post open cholecystectomy today on July 17. -Acute postprocedure blood loss anemia as expected from surgery -Acute gallstone pancreatitis, , improved -Acute renal failure, likely ATN from hepatorenal, worsening, started on renal replacement therapy on July 15 -Essential hypertension -Septic and hypovolemic shock, requiring pressure support, now off levo fed -Obesity BMI 34.4 -Hyperkalemia in a patient does take LORENA inhibitor's the setting of renal failure -Severe metabolic acidosis with lactic acidosis -Acute hypoxic severe respiratory failure secondary to noncardiogenic pulmonary edema and/or ARDS, requiring ventilator support Plan: continue current medication treatment plan. Keep a close and hemoglobin. Remains on the ventilator. Continue with antibiotics. Expect patient to start turning around. Currently no family the bedside.
[2019-07-18] MEDS: IPRATROPIUM-ALBUTEROL 3 ML NEB INHALATION SCH ×6 (00:07→22:11)
[2019-07-18 02:05] LABS: Glucose,Whole Blood 193 mg/dL (75-99)
[2019-07-18] MEDS: CEFEPIME 1 GM in SODIUM CHLORIDE 0.9% 50 ML IVPB SCH (02:24)
[2019-07-18] MEDS: HYDROmorphone 2 MG/ML 1 ML SYRINGE IVP PRN ×7 (02:24→23:12)
[2019-07-18] MEDS: INSULIN ASPART (NovoLOG) 100 UNIT/ML VIAL SQ SCH ×5 (02:24→19:00)
[2019-07-18] MEDS: PROPOFOL 1,000 MG in EMPTY BAG 1 BAG IV SCH ×11 (02:31→23:43)
[2019-07-18] MEDS: CALCIUM GLUCONATE IV SCH ×11 (04:27→19:06)
[2019-07-18] MEDS: [UNRECOGNIZED DRUG - OTHER] IV SCH ×6 (04:27)
[2019-07-18] MEDS: SODIUM ACETATE IV SCH ×11 (04:27→19:06)
[2019-07-18] MEDS: POTASSIUM CHLORIDE IV SCH ×6 (04:27)
[2019-07-18 05:03] LABS: ABG Base Excess -3.5 mmol/L; ABG HCO3 22 mmol/L (21-25); ABG Oxygen Saturation 96.2 % (94-97); ABG PCO2 37 mmHg (35-45); ABG PH 7.38 (7.35-7.45); ABG PO2 82 mmHg (83-108); ABG TCO2 23 mmol/L (19-24)
[2019-07-18 05:03] LABS: HGB 8.8 gm/dL (13.0-17.5); MCH 32.9 pg (25.0-35.0); MCHC 33.8 g/dL (31.0-37.0); MCV 97.1 fL (80.0-100.0); Mean Platelet Volume 10.2; RBC 2.68 m/uL (4.30-5.90); RDW 13.2 % (11.5-15.5); WBC 19.1 k/uL (3.8-10.6)
[2019-07-18 05:05] LABS: Platelet Count 84 k/uL (150-450)
[2019-07-18 05:11] LABS: Ionized Calcium 4.5 mg/dL (4.5-5.3)
[2019-07-18 05:18] LABS: Calcium 7.4 mg/dL (8.4-10.2); Magnesium 2.2 mg/dL (1.6-2.3)
[2019-07-18 05:46] LABS: Potassium 6.3 mmol/L (3.5-5.1)
[2019-07-18 05:47] LABS: Phosphorus 9.2 mg/dL (2.5-4.5)
[2019-07-18 06:12] LABS: Glucose,Whole Blood 202 mg/dL (75-99)
[2019-07-18] MEDS ORDERED: SODIUM BICARB 8.4% 50 ML SYR (1 MEQ/ML) IV STA (06:52)
[2019-07-18] MEDS ORDERED: CALCIUM CHLORIDE 100 MG/ML 10 ML SYRINGE IVP ONE (06:52)
[2019-07-18] MEDS ORDERED: INSULIN REGULAR 100 UNIT/ML VIAL SQ ONE (06:52)
[2019-07-18] MEDS ORDERED: LACTATED RINGERS 1,000 ML IV SCH (07:27)
--- NOTE | 2019-07-18 07:54 | P.PN ---
Subjective Progress Note Date: 07/18/19 on 07/18/2019 the patient is still in the intensive care unit as we are treating complications of an acute gallstone pancreatitis. The patient underwent a open cholecystectomy yesterday and following surgery the patient was still Intubated brought into the intensive care unit for further management. This morning, the patient remains sedated with propofol at the rate of 50 g per KG per minute. He is calm and comfortable. He remains on a mechanical ventilator. His chest x- ray from today showing moderate-sized pleural effusions bilaterally in the lung volumes are small ET tube is in a good location the patient has a left IJ triple-lumen catheter in place and NG tube is also in a good location. He is an assist-control mode with an FiO2 of 60% with a PEEP of 5 and a tidal volume of 450 with a rate of 28. Morning blood gases showed a pH of 7.38 with a pCO2 of 36 and pO2 of 81. No significant orotracheal secretions. He remains hemodynamically stable. BP from this morning is 126/59. He did not require any pressors following his surgery. His maintenance IV fluid is at30 mL an hour. He is receiving TPN at the rate of 70 mL an hour. His net fluid balance over the past 24 hours is +1.7 L. He has becomeedematous both in the upper and lower extremities. His urine output is in order of 10 mL an hour. Potassium from this morning was at 6.2and the patient was given 2 A of sodium bicarbonate addition to D50 insulin and the patient is going to undergo hemodialysis this morning. The MARICHUY drain is in place and output is n the order of 2 75 mL overnight and is somewhat serosanguineous/bloody in nature. No fever. His antibiotic coverage remains a combination of cefepime and Flagyl. His white cell count of 19.1 today. The inside is down to 375. Amylase and lipase were normalizing. LFTs were not drawn from today. Hisphosphorus level is at 9.2. Calcium level is at 4.5 and ionized. Creatinine is at 7.5 with a BUN of 19 9. Glucose is at 182. Objective - Vital Signs Vital signs: Vital Signs Temp 99.2 F 07/18/19 04:00 Pulse 104 H 07/18/19 07:39 Resp 23 07/18/19 07:00 BP 100/52 07/18/19 07:00 Pulse Ox 94 L 07/18/19 07:00 Intake & Output 07/17/19 07/18/19 07/18/19 18:59 06:59 18:59 Intake Total 2701.379 2057.845 36 Output Total 2680 315 265 Balance 21.379 1742.845 -229 Weight 150.6 kg 142.8 kg Intake: IV 2304 537 36 0.9 pressure bags 54 72 6 Cefepime 1 gm In Sodium 50 Chloride 0.9% 50 ml @ 100 mls/hr IVPB Q24H [facility] Rx# :[id number] Parenteral Electrolytes 420 20 ml In Amino Acid 5%- D15w 1,000 ml @ 70 mls/hr IV .BY DURATION [facility] Rx#: [id number] Sodium Chloride 0.9% 1, 180 315 30 000 ml @ 30 mls/hr IV . Q24H [facility] Rx#:[id number] metroNIDAZOLE-NS PMX 500 100 100 mg In Saline 1 100ml.bag @ 100 mls/hr IVPB Q8HR [facility] Rx#:[id number] Intake, IV Titration 894.387 3619.845 Amount Mvi, Adult No.4 with Vit 1046 K 10 ml Trace (Conc-1Ml/ Dose) 1 ml Sodium Acetate 40 meq Potassium Chloride 10 meq Calcium Gluconate 1 gm In Amino Acid 5%-D15w 1,000 ml @ 70 mls/hr IV .BY DURATION [facility] Rx#:[id number] Propofol 1,000 mg In 397.379 474.845 Empty Bag 1 bag @ Titrate IV .Q0M [facility] Rx#: [id number] Output: Gastric Drainage 250 Drainage 75 210 Right Abdomen 75 210 Urine 305 105 15 Hemodialysis 2000 Estimated Blood Loss 300 Other: Voiding Method Indwelling Catheter Indwelling Catheter ABP, PAP, CO, CI - Last Documented Arterial Blood Pressure 93/43 - Exam Gen. appearance, comfortable likely this is intubated on a mechanical ventilator. Orogastric and orotracheal tube are both in place. The patient has a right IJ triple-lumen catheter in place. Head exam was generally normal. There was no scleral icterus or corneal arcus. Mucous membranes were moist. Neck was supple and without jugular venous distension, thyromegaly, or carotid bruits. Carotids were easily palpable bilaterally. There was no adenopathy. Lungs sounds are diminished bilaterally especially in the lung bases. No wheezes or rhonchi. Cardiac exam revealed the PMI to be normally situated and sized. The rhythm was regular and no extrasystoles were noted during several minutes of auscultation. The first and second heart sounds were normal and physiologic splitting of the second heart sound was noted. There were no murmurs, rubs, clicks, or gallops. Abdominal exam revealed normal bowel sounds. The abdomen was soft, non-tender, and without masses, organomegaly, or appreciable enlargement of the abdominal aorta.Bowel sounds are hypoactive at this point in time. No direct tenderness or rebound tenderness or guarding. No ascites.the patient has an incision in the right upper quadrant and the incision site is dry clean and intact and the patient has a MARICHUY drain in the right upper quadrant also. Bowel sounds are hypoactive. No direct tenderness. No rebound tenderness. No guarding. Scrotal edema. Extremities revealed +1 pitting edema and there is no cyanosis or clubbing at this point in time. Neurologic the patient is easily arousable off sedation. His currently well sedated with propofol. Skin the patient has a temporary dialysis catheter in his right femoral vein. - Labs CBC & Chem 7: 07/18/19 04:30 07/18/19 04:30 Labs: Abnormal Lab Results - Last 24 Hours (Table) 07/17/19 07/17/19 07/17/19 Range/Units 04:45 08:03 11:25 WBC (3.8-10.6) k/uL RBC (4.30-5.90) m/uL Hgb (13.0-17.5) gm/dL Hct (39.0-53.0) % Plt Count (150-450) k/uL ABG pH (7.35-7.45) ABG pCO2 (35-45) mmHg ABG Total CO2 (19-24) mmol/L Sodium 134 L (137-145) mmol/L Potassium (3.5-5.1) mmol/L Carbon Dioxide (22-30) mmol/L BUN 96 H (9-20) mg/dL Creatinine 7.78 H* (0.66-1.25) mg/dL Glucose 265 H (74-99) mg/dL POC Glucose (mg/dL) 251 H (75-99) mg/dL Calcium 7.5 L (8.4-10.2) mg/dL Phosphorus 8.2 H (2.5-4.5) mg/dL Magnesium 2.4 H (1.6-2.3) mg/dL Total Bilirubin 1.4 H (0.2-1.3) mg/dL Delta Bilirubin 1.1 H (0.0-0.2) mg/dL ALT 54 H (4-49) U/L Total Protein 4.2 L (6.3-8.2) g/dL Albumin 2.3 L (3.5-5.0) g/dL Triglycerides (<150) mg/dL Lipase 356 H (23-300) U/L Crossmatch 07/17/19 07/17/19 07/17/19 Range/Units 11:57 14:45 14:45 WBC 24.4 H (3.8-10.6) k/uL RBC 3.40 L (4.30-5.90) m/uL Hgb 10.9 L (13.0-17.5) gm/dL Hct 33.1 L (39.0-53.0) % Plt Count 80 L (150-450) k/uL ABG pH (7.35-7.45) ABG pCO2 (35-45) mmHg ABG Total CO2 (19-24) mmol/L Sodium (137-145) mmol/L Potassium (3.5-5.1) mmol/L Carbon Dioxide (22-30) mmol/L BUN (9-20) mg/dL Creatinine (0.66-1.25) mg/dL Glucose (74-99) mg/dL POC Glucose (mg/dL) 181 H (75-99) mg/dL Calcium (8.4-10.2) mg/dL Phosphorus (2.5-4.5) mg/dL Magnesium (1.6-2.3) mg/dL Total Bilirubin (0.2-1.3) mg/dL Delta Bilirubin (0.0-0.2) mg/dL ALT (4-49) U/L Total Protein (6.3-8.2) g/dL Albumin (3.5-5.0) g/dL Triglycerides (<150) mg/dL Lipase (23-300) U/L Crossmatch See Detail 07/17/19 07/17/19 07/17/19 Range/Units 15:38 16:19 18:35 WBC (3.8-10.6) k/uL RBC (4.30-5.90) m/uL Hgb (13.0-17.5) gm/dL Hct (39.0-53.0) % Plt Count (150-450) k/uL ABG pH 7.26 L (7.35-7.45) ABG pCO2 52 H (35-45) mmHg ABG Total CO2 25 H (19-24) mmol/L Sodium (137-145) mmol/L Potassium (3.5-5.1) mmol/L Carbon Dioxide (22-30) mmol/L BUN (9-20) mg/dL Creatinine (0.66-1.25) mg/dL Glucose (74-99) mg/dL POC Glucose (mg/dL) 224 H 260 H (75-99) mg/dL Calcium (8.4-10.2) mg/dL Phosphorus (2.5-4.5) mg/dL Magnesium (1.6-2.3) mg/dL Total Bilirubin (0.2-1.3) mg/dL Delta Bilirubin (0.0-0.2) mg/dL ALT (4-49) U/L Total Protein (6.3-8.2) g/dL Albumin (3.5-5.0) g/dL Triglycerides (<150) mg/dL Lipase (23-300) U/L Crossmatch 07/17/19 07/17/19 07/18/19 Range/Units 18:40 21:59 02:03 WBC 16.9 H (3.8-10.6) k/uL RBC 2.99 L (4.30-5.90) m/uL Hgb 9.5 L (13.0-17.5) gm/dL Hct 29.2 L (39.0-53.0) % Plt Count 58 L (150-450) k/uL ABG pH (7.35-7.45) ABG pCO2 (35-45) mmHg ABG Total CO2 (19-24) mmol/L Sodium (137-145) mmol/L Potassium (3.5-5.1) mmol/L Carbon Dioxide (22-30) mmol/L BUN (9-20) mg/dL Creatinine (0.66-1.25) mg/dL Glucose (74-99) mg/dL POC Glucose (mg/dL) 227 H 193 H (75-99) mg/dL Calcium (8.4-10.2) mg/dL Phosphorus (2.5-4.5) mg/dL Magnesium (1.6-2.3) mg/dL Total Bilirubin (0.2-1.3) mg/dL Delta Bilirubin (0.0-0.2) mg/dL ALT (4-49) U/L Total Protein (6.3-8.2) g/dL Albumin (3.5-5.0) g/dL Triglycerides (<150) mg/dL Lipase (23-300) U/L Crossmatch 07/18/19 07/18/19 07/18/19 Range/Units 04:30 04:30 06:10 WBC 19.1 H (3.8-10.6) k/uL RBC 2.68 L (4.30-5.90) m/uL Hgb 8.8 L (13.0-17.5) gm/dL Hct 26.0 L (39.0-53.0) % Plt Count 84 L (150-450) k/uL ABG pH (7.35-7.45) ABG pCO2 (35-45) mmHg ABG Total CO2 (19-24) mmol/L Sodium 131 L (137-145) mmol/L Potassium 6.3 H* (3.5-5.1) mmol/L Carbon Dioxide 21 L (22-30) mmol/L BUN 99 H (9-20) mg/dL Creatinine 7.50 H* (0.66-1.25) mg/dL Glucose 186 H (74-99) mg/dL POC Glucose (mg/dL) 202 H (75-99) mg/dL Calcium 7.4 L (8.4-10.2) mg/dL Phosphorus 9.2 H* (2.5-4.5) mg/dL Magnesium (1.6-2.3) mg/dL Total Bilirubin (0.2-1.3) mg/dL Delta Bilirubin (0.0-0.2) mg/dL ALT (4-49) U/L Total Protein (6.3-8.2) g/dL Albumin (3.5-5.0) g/dL Triglycerides 375 H (<150) mg/dL Lipase (23-300) U/L Crossmatch Microbiology - Last 24 Hours (Table) 07/11/19 08:17 Blood Culture - Final Blood No Growth after 144 hours Assessment and Plan Plan: 1 Gallstone pancreatitis, improving. The patient also has an acute cholecystitis with cholelithiasis. The common bile duct was within normal limits. ERCPs and currently the patient is post open cholecystectomy and the patient is postop day #1. Currently remains on a combination of IV cefepime and Flagyl. Hemodynamically stable. No pressors. 2 severe pancreatitis, improving, amylase and lipase is improved. 3 acute hypoxic respiratory failure with development of pulmonary edema and pleural effusions, underlying ARDS cannot be completely excluded in the setting of an acute pancreatitis, acid base status and oxygenation is improved compared to yesterday. Currently is on a PEEP of and FiO2 of 60%. Chest x-ray showing bilateral pleural effusions 4 acute kidney injury currently on hemodialysis, potassium today is at 6 months and the patient has been treated for hyperkalemia with the usual cocktail and the patient is going to undergo hemodialysis. 5 hypotension, recovered and currently the patient is off pressors 6 alcoholism 7 smoker 8 hypertension history of 9 bilateral hearing loss 10 hyperphosphatemia 11 leukocytosis 12 TPN for nutritional support 13 (cholecystectomy, postop day #1 14 thrombocytopenia, platelet counts are stable at 84 Plan Vent support, no vision changes IV fluids to KVO TPN for nutritional support Flagyl and cefepime as empiric antibiotic coverage propofol for sedation Dialysis for today regarding hyperkalemia and hyperphosphatemia and fluid overload. The patient has a temper dialysis catheter in his right femoral vein and dialysis is to proceed today in the follow-up electrolytes are to be obtained after dialysis. post cholecystectomy, monitor the MARICHUY drain output and continue the same antibiotic coverage we'll need another Artline cath and this will be inserted today Case was discussed with the family. Condition was explained. We'll continue to follow. Condition is critical. Evaluation was done and more than 30 minutes. Time with Patient: Greater than 30
[2019-07-18 07:58] LABS: Glucose,Whole Blood 200 mg/dL (75-99)
[2019-07-18 08:16] LABS: Albumin 1.9 g/dL (3.5-5.0); Total Protein 3.5 g/dL (6.3-8.2)
[2019-07-18] MEDS: CHLORHEXIDINE GLUCONATE 15 ML CUP MUCOUS MEM SCH ×2 (08:21→21:21)
[2019-07-18] MEDS: PANTOPRAZOLE 40 MG/10 ML VIAL IV SCH (08:21)
[2019-07-18] MEDS: ENOXAPARIN 30 MG/0.3 ML SYRINGE SQ SCH (08:22)
[2019-07-18] MEDS: metroNIDAZOLE-NS PMX 500 MG in SALINE 1 100ML.BAG IVPB SCH ×3 (08:22→23:43)
--- NOTE | 2019-07-18 08:40 | XR ---
EXAMINATION TYPE: XR chest 1V portable DATE OF EXAM: 07/18/2019 COMPARISON: Prior chest x-ray 07/17/2019 HISTORY: Intubated TECHNIQUE: Single frontal view of the chest is obtained. FINDINGS: Endotracheal tube is superimposed over the tracheal air column, NG tube is in place, dista l tip is in the left upper quadrant. Left jugular central venous catheter is in place, distal tip is at the cavoatrial junction level. No evident pneumothorax. Bibasilar increased density persists. The hemidiaphragms and heart borders are obscured. Interstitium is mildly increased. There are overlying cardiac leads. IMPRESSION: Bibasilar effusions and associated atelectasis, correlate for pulmonary venous hypertens ion and interstitial edema. Pneumonia not excluded. Follow-up recommended.
--- NOTE | 2019-07-18 09:31 | PCN ---
PROCEDURE NOTE PROCEDURE: Left radial arterial line placement. PREOPERATIVE DIAGNOSIS: Septic shock. POSTOPERATIVE DIAGNOSIS: Septic shock. ARTERIAL LINE PLACEMENT: Indications: Hemodynamic monitoring. A time-out was completed verifying correct patient, procedure, site, positioning, and implant(s) or special equipment if applicable. Conner's test was performed to ensure adequate perfusion. The patient's left wrist was prepped and draped in sterile fashion. 1% Lidocaine was used to anesthetize the area. An 18G Arrow arterial line was introduced into the left radial artery. The catheter was threaded over the guide wire and the needle was removed with appropriate pulsatile blood return. Blood loss was minimal. The catheter was then sutured in place to the skin and a sterile dressing applied. Perfusion to the extremity distal to the point of catheter insertion was checked and found to be adequate. The patient tolerated the procedure well and there were no immediate complications. Good waveform was noted. Line was flushed, sutured in place. Sterile dressing was applied. MMODL / IJN: [id number] /
[2019-07-18] MEDS: ALBUMIN HUMAN 25% 50 ML in EMPTY BAG 1 BAG IVPB SCH ×4 (09:50→18:44)
[2019-07-18] MEDS: NOREPINEPHRINE 32 MG in SODIUM CHLORIDE 0.9% 218 ML IV SCH (10:05)
--- NOTE | 2019-07-18 10:51 | P.PN ---
Subjective Patient is seen in follow-up for acute kidney injury, currently hemodialysis dependent. Patient remains intubated. Urine output 10-15 mL an hour. Still quite edematous. Remains off vasopressors. He is receiving TPN at 70 mL an hour. Status post open cholecystectomy on July 17. Vital signs are stable. Blood pressure on the lower side. General: The patient appeared well nourished and normally developed. Intubated. HEENT: Head exam is unremarkable. Neck is without jugular venous distension. LUNGS: Lungs are clear to auscultation and percussion. Breath sounds decreased. HEART: Rate and Rhythm are regular. First and second heart sounds normal. No murmurs, rubs or gallops. ABDOMEN: Bowel sounds decreased. EXTREMITITES: 2+ edema. Scrotal edema noted. Objective - Vital Signs Vital signs: Vital Signs Temp 99.0 F 07/18/19 08:00 Pulse 101 H 07/18/19 10:30 Resp 25 H 07/18/19 10:30 BP 102/57 07/18/19 09:00 Pulse Ox 100 07/18/19 10:30 Intake & Output 07/17/19 07/18/19 07/18/19 18:59 06:59 18:59 Intake Total 2701.379 2057.845 511.401 Output Total 2680 315 275 Balance 21.379 1742.845 236.401 Weight 150.6 kg 142.8 kg Intake: IV 2304 537 172 0.9 pressure bags 54 72 12 Cefepime 1 gm In Sodium 50 Chloride 0.9% 50 ml @ 100 mls/hr IVPB Q24H [facility] Rx# :[id number] Parenteral Electrolytes 420 20 ml In Amino Acid 5%- D15w 1,000 ml @ 70 mls/hr IV .BY DURATION [facility] Rx#: [id number] Sodium Chloride 0.9% 1, 180 315 60 000 ml @ 30 mls/hr IV . Q24H [facility] Rx#:[id number] metroNIDAZOLE-NS PMX 500 100 100 100 mg In Saline 1 100ml.bag @ 100 mls/hr IVPB Q8HR [facility] Rx#:[id number] Intake, IV Titration 170.675 4127.845 339.401 Amount Mvi, Adult No.4 with Vit 1046 K 10 ml Trace (Conc-1Ml/ Dose) 1 ml Sodium Acetate 40 meq Potassium Chloride 10 meq Calcium Gluconate 1 gm In Amino Acid 5%-D15w 1,000 ml @ 70 mls/hr IV .BY DURATION [facility] Rx#:[id number] Mvi, Adult No.4 with Vit 70 K 10 ml Trace (Conc-1Ml/ Dose) 1 ml Sodium Acetate 60 meq Calcium Gluconate 1 gm In Amino Acid 5%- D15w 1,000 ml @ 70 mls/hr IV .BY DURATION [facility] Rx#: [id number] Norepinephrine 32 mg In 93.802 Sodium Chloride 0.9% 218 ml @ 0.05 MCG/KG/MIN 3. 253 mls/hr IV .Q24H [facility] Rx#:[id number] Propofol 1,000 mg In 397.379 474.845 175.599 Empty Bag 1 bag @ Titrate IV .Q0M [facility] Rx#: [id number] Output: Gastric Drainage 250 Drainage 75 210 Right Abdomen 75 210 Urine 305 105 25 Hemodialysis 2000 Estimated Blood Loss 300 Other: Voiding Method Indwelling Catheter Indwelling Catheter Indwelling Catheter ABP, PAP, CO, CI - Last Documented Arterial Blood Pressure 128/52 - Labs CBC & Chem 7: 07/18/19 04:30 07/18/19 04:30 Labs: Abnormal Lab Results - Last 24 Hours (Table) 07/17/19 07/17/19 07/17/19 Range/Units 11:25 11:57 14:45 WBC 24.4 H (3.8-10.6) k/uL RBC 3.40 L (4.30-5.90) m/uL Hgb 10.9 L (13.0-17.5) gm/dL Hct 33.1 L (39.0-53.0) % Plt Count 80 L (150-450) k/uL ABG pH (7.35-7.45) ABG pCO2 (35-45) mmHg ABG pO2 (83-108) mmHg ABG Total CO2 (19-24) mmol/L Sodium (137-145) mmol/L Potassium (3.5-5.1) mmol/L Carbon Dioxide (22-30) mmol/L BUN (9-20) mg/dL Creatinine (0.66-1.25) mg/dL Glucose (74-99) mg/dL POC Glucose (mg/dL) 181 H (75-99) mg/dL Calcium (8.4-10.2) mg/dL Phosphorus (2.5-4.5) mg/dL Total Bilirubin 1.4 H (0.2-1.3) mg/dL Delta Bilirubin 1.1 H (0.0-0.2) mg/dL AST (17-59) U/L ALT 54 H (4-49) U/L Total Protein 4.2 L (6.3-8.2) g/dL Albumin 2.3 L (3.5-5.0) g/dL Triglycerides (<150) mg/dL Crossmatch 07/17/19 07/17/19 07/17/19 Range/Units 14:45 15:38 16:19 WBC (3.8-10.6) k/uL RBC (4.30-5.90) m/uL Hgb (13.0-17.5) gm/dL Hct (39.0-53.0) % Plt Count (150-450) k/uL ABG pH 7.26 L (7.35-7.45) ABG pCO2 52 H (35-45) mmHg ABG pO2 (83-108) mmHg ABG Total CO2 25 H (19-24) mmol/L Sodium (137-145) mmol/L Potassium (3.5-5.1) mmol/L Carbon Dioxide (22-30) mmol/L BUN (9-20) mg/dL Creatinine (0.66-1.25) mg/dL Glucose (74-99) mg/dL POC Glucose (mg/dL) 224 H (75-99) mg/dL Calcium (8.4-10.2) mg/dL Phosphorus (2.5-4.5) mg/dL Total Bilirubin (0.2-1.3) mg/dL Delta Bilirubin (0.0-0.2) mg/dL AST (17-59) U/L ALT (4-49) U/L Total Protein (6.3-8.2) g/dL Albumin (3.5-5.0) g/dL Triglycerides (<150) mg/dL Crossmatch See Detail 07/17/19 07/17/19 07/17/19 Range/Units 18:35 18:40 21:59 WBC 16.9 H (3.8-10.6) k/uL RBC 2.99 L (4.30-5.90) m/uL Hgb 9.5 L (13.0-17.5) gm/dL Hct 29.2 L (39.0-53.0) % Plt Count 58 L (150-450) k/uL ABG pH (7.35-7.45) ABG pCO2 (35-45) mmHg ABG pO2 (83-108) mmHg ABG Total CO2 (19-24) mmol/L Sodium (137-145) mmol/L Potassium (3.5-5.1) mmol/L Carbon Dioxide (22-30) mmol/L BUN (9-20) mg/dL Creatinine (0.66-1.25) mg/dL Glucose (74-99) mg/dL POC Glucose (mg/dL) 260 H 227 H (75-99) mg/dL Calcium (8.4-10.2) mg/dL Phosphorus (2.5-4.5) mg/dL Total Bilirubin (0.2-1.3) mg/dL Delta Bilirubin (0.0-0.2) mg/dL AST (17-59) U/L ALT (4-49) U/L Total Protein (6.3-8.2) g/dL Albumin (3.5-5.0) g/dL Triglycerides (<150) mg/dL Crossmatch 07/18/19 07/18/19 07/18/19 Range/Units 02:03 04:30 04:30 WBC 19.1 H (3.8-10.6) k/uL RBC 2.68 L (4.30-5.90) m/uL Hgb 8.8 L (13.0-17.5) gm/dL Hct 26.0 L (39.0-53.0) % Plt Count 84 L (150-450) k/uL ABG pH (7.35-7.45) ABG pCO2 (35-45) mmHg ABG pO2 (83-108) mmHg ABG Total CO2 (19-24) mmol/L Sodium 131 L (137-145) mmol/L Potassium 6.3 H* (3.5-5.1) mmol/L Carbon Dioxide 21 L (22-30) mmol/L BUN 99 H (9-20) mg/dL Creatinine 7.50 H* (0.66-1.25) mg/dL Glucose 186 H (74-99) mg/dL POC Glucose (mg/dL) 193 H (75-99) mg/dL Calcium 7.4 L (8.4-10.2) mg/dL Phosphorus 9.2 H* (2.5-4.5) mg/dL Total Bilirubin (0.2-1.3) mg/dL Delta Bilirubin (0.0-0.2) mg/dL AST 148 H (17-59) U/L ALT 103 H (4-49) U/L Total Protein 3.5 L (6.3-8.2) g/dL Albumin 1.9 L (3.5-5.0) g/dL Triglycerides 375 H (<150) mg/dL Crossmatch 07/18/19 07/18/19 07/18/19 Range/Units 05:01 06:10 07:57 WBC (3.8-10.6) k/uL RBC (4.30-5.90) m/uL Hgb (13.0-17.5) gm/dL Hct (39.0-53.0) % Plt Count (150-450) k/uL ABG pH (7.35-7.45) ABG pCO2 (35-45) mmHg ABG pO2 82 L (83-108) mmHg ABG Total CO2 (19-24) mmol/L Sodium (137-145) mmol/L Potassium (3.5-5.1) mmol/L Carbon Dioxide (22-30) mmol/L BUN (9-20) mg/dL Creatinine (0.66-1.25) mg/dL Glucose (74-99) mg/dL POC Glucose (mg/dL) 202 H 200 H (75-99) mg/dL Calcium (8.4-10.2) mg/dL Phosphorus (2.5-4.5) mg/dL Total Bilirubin (0.2-1.3) mg/dL Delta Bilirubin (0.0-0.2) mg/dL AST (17-59) U/L ALT (4-49) U/L Total Protein (6.3-8.2) g/dL Albumin (3.5-5.0) g/dL Triglycerides (<150) mg/dL Crossmatch Microbiology - Last 24 Hours (Table) 07/11/19 08:17 Blood Culture - Final Blood No Growth after 144 hours Assessment and Plan Plan: Assessment: 1. Acute kidney injury secondary to ATN secondary to septic shock, currently hemodialysis dependent. Started on hemodialysis July 15. Baseline creatinine is near 1 and peaked at greater than 8 this admission. 2. Volume overload. 3. Severe acute pancreatitis. ERCP was attempted earlier this admission. sta tus post open cholecystectomy on July 17. 4. Hyperphosphatemia secondary to acute kidney injury. Not on phosphate binders as he is not eating at this time. 5. Ileus maintained on TPN. 6. Metabolic acidosis secondary to acute kidney injury. 7. Hyperkalemia secondary to acute kidney injury and metabolic acidosis. medically treated with IV bicarb and insulin this morning. 8. Hypervolemic hyponatremia. Plan: Currently seen while undergoing hemodialysis. Another treatment tomorrow. Avoid nephrotoxins. Continue to monitor renal function and urine output. Repeat potassium level this evening. 25 g IV albumin 2 doses today. Resume Levophed during hemodialysis for ultrafiltration. I will also use cool dialysate and sodium modeling during dialysis.
[2019-07-18 11:17] LABS: Glucose,Whole Blood 183 mg/dL (75-99)
--- NOTE | 2019-07-18 12:38 | P.PN ---
Subjective Progress Note Date: 07/18/19 CHIEF COMPLAINT: Abdominal pain HISTORY OF PRESENT ILLNESS: patient is status post open cholecystectomy. Postop day #1. Patient examined in the intensive care unit with Dr. Alcantar. Patient remains on mechanical ventilation. Nursing reports 250 mL of drainage from OG tube and 30cc from MARICHUY drain. WBC 19.1. Hemoglobin 8.8. bilirubin 1.0. AST 148. ALT 103. PHYSICAL EXAM: VITAL SIGNS: Reviewed. GENERAL: Well-developed in no acute distress-sedated on mechanical ventilation. HEENT: No sclera icterus. Extraocular movements grossly intact. Moist buccal mucosa. Head is atraumatic, normocephalic. ABDOMEN: Soft. Nondistended. Dressing CDI. MARICHUY with dark serous drainage. OG tube with dark bloody drainage. NEUROLOGIC: Sedated on mechanical ventilation ASSESSMENT: 1. Abdominal pain 2. Cholelithiasis, Possible choledocholithiasis 3. Pancreatitis 4. Hyperbilirubinemia 5. Transaminitis PLAN: Continue ventilator management per Dr. Rowland Continue to monitor labs Continue to monitor MARICHUY drain output and NG tube output Nurse practitioner note has been reviewed by physician. Signing provider agrees with the documented findings, assessment, and plan of care. Objective - Vital Signs Vital signs: Vital Signs Temp 98.8 F 07/18/19 12:06 Pulse 101 H 07/18/19 12:06 Resp 30 H 07/18/19 12:06 BP 132/47 07/18/19 12:06 Pulse Ox 97 07/18/19 12:00 Intake & Output 07/17/19 07/18/19 07/18/19 18:59 06:59 18:59 Intake Total 2701.379 2057.845 935.401 Output Total 2680 315 2605 Balance 21.379 1742.845 -1669.599 Weight 150.6 kg 142.8 kg Intake: IV 2304 537 596 0.9 pressure bags 54 72 36 Albumin Human 25% 50 ml 50 In Empty Bag 1 bag @ 50 mls/hr IVPB Q1H [facility] Rx#: [id number] Albumin Human 25% 50 ml 50 In Empty Bag 1 bag @ 50 mls/hr IVPB Q1H [facility] Rx#: [id number] Cefepime 1 gm In Sodium 50 Chloride 0.9% 50 ml @ 100 mls/hr IVPB Q24H [facility] Rx# :[id number] Mvi, Adult No.4 with Vit 210 K 10 ml Trace (Conc-1Ml/ Dose) 1 ml Sodium Acetate 60 meq Calcium Gluconate 1 gm In Amino Acid 5%- D15w 1,000 ml @ 70 mls/hr IV .BY DURATION [facility] Rx#: [id number] Parenteral Electrolytes 420 20 ml In Amino Acid 5%- D15w 1,000 ml @ 70 mls/hr IV .BY DURATION [facility] Rx#: [id number] Sodium Chloride 0.9% 1, 180 315 150 000 ml @ 30 mls/hr IV . Q24H [facility] Rx#:[id number] metroNIDAZOLE-NS PMX 500 100 100 100 mg In Saline 1 100ml.bag @ 100 mls/hr IVPB Q8HR [facility] Rx#:[id number] Intake, IV Titration 023.190 7691.845 339.401 Amount Mvi, Adult No.4 with Vit 1046 K 10 ml Trace (Conc-1Ml/ Dose) 1 ml Sodium Acetate 40 meq Potassium Chloride 10 meq Calcium Gluconate 1 gm In Amino Acid 5%-D15w 1,000 ml @ 70 mls/hr IV .BY DURATION [facility] Rx#:[id number] Mvi, Adult No.4 with Vit 70 K 10 ml Trace (Conc-1Ml/ Dose) 1 ml Sodium Acetate 60 meq Calcium Gluconate 1 gm In Amino Acid 5%- D15w 1,000 ml @ 70 mls/hr IV .BY DURATION [facility] Rx#: [id number] Norepinephrine 32 mg In 93.802 Sodium Chloride 0.9% 218 ml @ 0.05 MCG/KG/MIN 3. 253 mls/hr IV .Q24H [facility] Rx#:[id number] Propofol 1,000 mg In 397.379 474.845 175.599 Empty Bag 1 bag @ Titrate IV .Q0M [facility] Rx#: [id number] Output: Gastric Drainage 500 Drainage 75 210 30 Right Abdomen 75 210 30 Urine 305 105 75 Hemodialysis 1999 1999 Estimated Blood Loss 300 Other: Voiding Method Indwelling Catheter Indwelling Catheter Indwelling Catheter # Voids 2 ABP, PAP, CO, CI - Last Documented Arterial Blood Pressure 108/49 - Labs CBC & Chem 7: 07/18/19 04:30 07/18/19 04:30 Labs: Abnormal Lab Results - Last 24 Hours (Table) 07/17/19 07/17/19 07/17/19 Range/Units 14:45 14:45 15:38 WBC 24.4 H (3.8-10.6) k/uL RBC 3.40 L (4.30-5.90) m/uL Hgb 10.9 L (13.0-17.5) gm/dL Hct 33.1 L (39.0-53.0) % Plt Count 80 L (150-450) k/uL ABG pH (7.35-7.45) ABG pCO2 (35-45) mmHg ABG pO2 (83-108) mmHg ABG Total CO2 (19-24) mmol/L Sodium (137-145) mmol/L Potassium (3.5-5.1) mmol/L Carbon Dioxide (22-30) mmol/L BUN (9-20) mg/dL Creatinine (0.66-1.25) mg/dL Glucose (74-99) mg/dL POC Glucose (mg/dL) 224 H (75-99) mg/dL Calcium (8.4-10.2) mg/dL Phosphorus (2.5-4.5) mg/dL AST (17-59) U/L ALT (4-49) U/L Total Protein (6.3-8.2) g/dL Albumin (3.5-5.0) g/dL Triglycerides (<150) mg/dL Crossmatch See Detail 07/17/19 07/17/19 07/17/19 Range/Units 16:19 18:35 18:40 WBC 16.9 H (3.8-10.6) k/uL RBC 2.99 L (4.30-5.90) m/uL Hgb 9.5 L (13.0-17.5) gm/dL Hct 29.2 L (39.0-53.0) % Plt Count 58 L (150-450) k/uL ABG pH 7.26 L (7.35-7.45) ABG pCO2 52 H (35-45) mmHg ABG pO2 (83-108) mmHg ABG Total CO2 25 H (19-24) mmol/L Sodium (137-145) mmol/L Potassium (3.5-5.1) mmol/L Carbon Dioxide (22-30) mmol/L BUN (9-20) mg/dL Creatinine (0.66-1.25) mg/dL Glucose (74-99) mg/dL POC Glucose (mg/dL) 260 H (75-99) mg/dL Calcium (8.4-10.2) mg/dL Phosphorus (2.5-4.5) mg/dL AST (17-59) U/L ALT (4-49) U/L Total Protein (6.3-8.2) g/dL Albumin (3.5-5.0) g/dL Triglycerides (<150) mg/dL Crossmatch 07/17/19 07/18/19 07/18/19 Range/Units 21:59 02:03 04:30 WBC 19.1 H (3.8-10.6) k/uL RBC 2.68 L (4.30-5.90) m/uL Hgb 8.8 L (13.0-17.5) gm/dL Hct 26.0 L (39.0-53.0) % Plt Count 84 L (150-450) k/uL ABG pH (7.35-7.45) ABG pCO2 (35-45) mmHg ABG pO2 (83-108) mmHg ABG Total CO2 (19-24) mmol/L Sodium (137-145) mmol/L Potassium (3.5-5.1) mmol/L Carbon Dioxide (22-30) mmol/L BUN (9-20) mg/dL Creatinine (0.66-1.25) mg/dL Glucose (74-99) mg/dL POC Glucose (mg/dL) 227 H 193 H (75-99) mg/dL Calcium (8.4-10.2) mg/dL Phosphorus (2.5-4.5) mg/dL AST (17-59) U/L ALT (4-49) U/L Total Protein (6.3-8.2) g/dL Albumin (3.5-5.0) g/dL Triglycerides (<150) mg/dL Crossmatch 07/18/19 07/18/19 07/18/19 Range/Units 04:30 05:01 06:10 WBC (3.8-10.6) k/uL RBC (4.30-5.90) m/uL Hgb (13.0-17.5) gm/dL Hct (39.0-53.0) % Plt Count (150-450) k/uL ABG pH (7.35-7.45) ABG pCO2 (35-45) mmHg ABG pO2 82 L (83-108) mmHg ABG Total CO2 (19-24) mmol/L Sodium 131 L (137-145) mmol/L Potassium 6.3 H* (3.5-5.1) mmol/L Carbon Dioxide 21 L (22-30) mmol/L BUN 99 H (9-20) mg/dL Creatinine 7.50 H* (0.66-1.25) mg/dL Glucose 186 H (74-99) mg/dL POC Glucose (mg/dL) 202 H (75-99) mg/dL Calcium 7.4 L (8.4-10.2) mg/dL Phosphorus 9.2 H* (2.5-4.5) mg/dL AST 148 H (17-59) U/L ALT 103 H (4-49) U/L Total Protein 3.5 L (6.3-8.2) g/dL Albumin 1.9 L (3.5-5.0) g/dL Triglycerides 375 H (<150) mg/dL Crossmatch 07/18/19 07/18/19 Range/Units 07:57 11:08 WBC (3.8-10.6) k/uL RBC (4.30-5.90) m/uL Hgb (13.0-17.5) gm/dL Hct (39.0-53.0) % Plt Count (150-450) k/uL ABG pH (7.35-7.45) ABG pCO2 (35-45) mmHg ABG pO2 (83-108) mmHg ABG Total CO2 (19-24) mmol/L Sodium (137-145) mmol/L Potassium (3.5-5.1) mmol/L Carbon Dioxide (22-30) mmol/L BUN (9-20) mg/dL Creatinine (0.66-1.25) mg/dL Glucose (74-99) mg/dL POC Glucose (mg/dL) 200 H 183 H (75-99) mg/dL Calcium (8.4-10.2) mg/dL Phosphorus (2.5-4.5) mg/dL AST (17-59) U/L ALT (4-49) U/L Total Protein (6.3-8.2) g/dL Albumin (3.5-5.0) g/dL Triglycerides (<150) mg/dL Crossmatch Microbiology - Last 24 Hours (Table) 07/11/19 08:17 Blood Culture - Final Blood No Growth after 144 hours
[2019-07-18 13:57] LABS: Glucose,Whole Blood 212 mg/dL (75-99)
[2019-07-18 14:45] LABS: HCT 25.7 % (39.0-53.0); HGB 8.3 gm/dL (13.0-17.5); MCH 31.4 pg (25.0-35.0); MCHC 32.2 g/dL (31.0-37.0); MCV 97.3 fL (80.0-100.0); Mean Platelet Volume 9.7; RBC 2.64 m/uL (4.30-5.90); RDW 13.2 % (11.5-15.5); WBC 18.9 k/uL (3.8-10.6)
[2019-07-18 14:47] LABS: Platelet Count 73 k/uL (150-450)
[2019-07-18] MEDS: SODIUM CHLORIDE 0.9% 1,000 ML IV SCH (16:38)
[2019-07-18 17:58] LABS: Glucose,Whole Blood 154 mg/dL (75-99)
[2019-07-18] MEDS: AMINO ACID 5% IV SCH ×5 (19:06)
[2019-07-18] MEDS: MVI IV SCH ×5 (19:06)
[2019-07-18] MEDS: fentaNYL (PF) 1,000 MCG in SODIUM CHLORIDE 0.9% 80 ML IV SCH (20:16)
--- NOTE | 2019-07-18 23:30 | P.PN ---
Progress Note - Text Progress Note Date: 07/18/19 Interval history: This is a pleasant [address]. [address] Dr[address] Malloy. Patient for about 2 years has had episodes of upper abdominal epigastric pain lasted for about half an hour. The pain does up to present to become severe within relaxes. Started off about 2 years ago when he states the frequency is increased. More so frequently in the last 2 weeks. Especially yesterday morning patient became rather severe. Epigastric. Started having nausea vomiting. Had fever or chills. Also been getting heartburn. Patient drinks about 12 beers over the weekend. Otherwise in good health. Admitted with-acute cholecystitis with choledocholithiasis, acute gallstone pancreatitis.patient clinically deteriorated and was transferred to the ICU on July 13. Patient intubated.when into renal failure. Started with hemodialysis. Patient underwent open cholecystectomy with gallstone removal on 07/17/2019. Today-ICU. Patient is put back on her levo fed drip. Also on propofol. FiO2 60% and PEEP of 5. Intubated sedated. Family the bedside. . Patient had quite a bit bloody output through the MARICHUY drain, overnight, started to slow down this morning Review of systems: patient is intubated Active Medications Acetaminophen (Tylenol Tab) 650 mg PO Q4HR PRN PRN Reason: Fever and/or Mild Pain Albuterol/Ipratropium (Duoneb 0.5 Mg-3 Mg/3 Ml Soln) 3 ml INHALATION RT-TID PRN PRN Reason: Shortness Of Breath Or Wheezing Albuterol/Ipratropium (Duoneb 0.5 Mg-3 Mg/3 Ml Soln) 3 ml INHALATION RT-Q4H [facility] Last Admin: 07/18/19 22:11 Dose: 3 ml Documented by: Chlorhexidine Gluconate (Peridex) 15 ml MUCOUS MEM BID [facility] Last Admin: 07/18/19 21:21 Dose: 15 ml Documented by: Enoxaparin Sodium (Lovenox) 30 mg SQ DAILY [facility] Last Admin: 07/18/19 08:22 Dose: 30 mg Documented by: Hydromorphone HCl (Dilaudid) 2 mg IVP Q2H PRN PRN Reason: Moderate Pain Last Admin: 07/18/19 23:12 Dose: 2 mg Documented by: Metronidazole 500 mg/ IV (Solution) 100 mls @ 100 mls/hr IVPB Q8HR [facility] Last Admin: 07/18/19 16:31 Dose: 100 mls/hr Documented by: Sodium Chloride (Saline 0.9%) 1,000 mls @ 30 mls/hr IV .Q24H [facility] Last Admin: 07/18/19 16:38 Dose: 30 mls/hr Documented by: Cefepime HCl 1 gm/ Sodium (Chloride) 50 mls @ 100 mls/hr IVPB Q24H [facility] Last Admin: 07/18/19 02:24 Dose: 100 mls/hr Documented by: Propofol 1,000 mg/ IV Solution 100 mls @ 0 mls/hr IV .Q0M [facility]; Protocol Last Admin: 07/18/19 22:20 Dose: 50 mcg/kg/min, 42.84 mls/hr Documented by: Norepinephrine Bitartrate 32 (mg/ Sodium Chloride) 250 mls @ 3.253 mls/hr IV .Q24H [facility]; Protocol Last Titration: 07/18/19 16:45 Dose: 0.02 mcg/kg/min, 1.301 mls/hr Documented by: Sodium Acetate 60 meq/ Calcium Gluconate 1 gm/ Amino Acids/Dextrose 1,040 mls @ 70 mls/hr IV .BY DURATION [facility] Parenteral Vitamin Supplement 10 ml/ Chromium/Copper/Manganese/Seleni/Zn 1 ml/Sodium Acetate 60 meq/ Calcium Gluconate 1 gm/ Amino Acids/Dextrose 1,051 mls @ 70 mls/hr IV .BY DURATION [facility] Last Admin: 07/18/19 19:06 Dose: 70 mls/hr Documented by: Fentanyl Citrate 1,000 mcg/ (Sodium Chloride) 100 mls @ 10.139 mls/hr IV .Q9H52M [facility] Last Admin: 07/18/19 20:16 Dose: 0.71 mcg/kg/hr, 10.139 mls/hr Documented by: Insulin Aspart (Novolog) 0 unit SQ Q4H [facility]; Protocol Naloxone HCl (Narcan) 0.2 mg IV Q2M PRN PRN Reason: Opioid Reversal Ondansetron HCl (Zofran) 4 mg IVP Q8HR PRN PRN Reason: Nausea And Vomiting Pantoprazole Sodium (Protonix) 40 mg IV DAILY [facility] Last Admin: 07/18/19 08:21 Dose: 40 mg Documented by: Physical examination: VITAL SIGNS: 99.2, 96, 22, 105/49, 96% on ventilator GENERAL: laying in bed, intubated. EYES: Pupils equal. Conjunctiva normal. HEENT: External appearance of nose and ears normal, oral cavity grossly normal., endotracheal tube in place, NG tube in place NECK: JVD not raised; masses not palpable. HEART: First and second heart sounds are normal; no edema. LUNGS: Respiratory rate increased, decreased breath sounds. ABDOMEN: Soft, dressing over the incision, MARICHUY drain is present. With bloody output PSYCH: sedated INVESTIGATIONS, reviewed in the clinical context: White count 18.9 hemoglobin 8.3 amylase 46 lipase 356 Previous testing White count 13 hemoglobin 18.4 pressures 59 progression 4.3 crit 1.16 Total bilirubin 2.9 AST 440 ALT 574 Amylase 2794, lipase greater than 20,000 Computed tomography scan-moderate peripancreatic fat stranding, gallstones and a distended gallbladder with gallbladder wall thickening. Abdominal ultrasound-gallbladder thickening with intermittent small stones. Pericholecystic fluid EKG tracing-personally reviewed by me shows normal sinus rhythm nonspecific T- wave changes Assessment: -Acute cholecystitis secondary to choledocholithiasis, with possible ascending cholangitis,causing sepsis, status post open cholecystectomy on July 17. -Acute postprocedure blood loss anemia as expected from surgery -Acute gallstone pancreatitis, , improved -Acute renal failure, likely ATN from hepatorenal, worsening, started on renal replacement therapy on July 15 -Essential hypertension -Septic and hypovolemic shock, requiring pressure support, now off levo fed -Obesity BMI 34.4 -Hyperkalemia in a patient does take LORENA inhibitor's the setting of renal failure -Severe metabolic acidosis with lactic acidosis -Acute hypoxic severe respiratory failure secondary to noncardiogenic pulmonary edema and/or ARDS, requiring ventilator support, slow to respond -Symptomatic anemia from blood loss from the MARICHUY drain requiring patient to go back to levo fed., We'll therefore transfuse a unit of blood Plan: Follow-up above reasons a unit of blood. Continue with antibiotics. Supportive care. Patient remains on propofol and Levothroid. Care was discussed with the patient and and parents at the bedside.
[2019-07-18 23:56] LABS: Glucose,Whole Blood 179 mg/dL (75-99)
[2019-07-19] MEDS: INSULIN ASPART (NovoLOG) 100 UNIT/ML VIAL SQ SCH ×5 (00:04→19:49)
[2019-07-19] MEDS: IPRATROPIUM-ALBUTEROL 3 ML NEB INHALATION SCH ×6 (00:37→19:13)
[2019-07-19] MEDS: PROPOFOL 1,000 MG in EMPTY BAG 1 BAG IV SCH ×8 (01:22→20:55)
[2019-07-19] MEDS: CEFEPIME 1 GM in SODIUM CHLORIDE 0.9% 50 ML IVPB SCH (01:45)
[2019-07-19] MEDS: HYDROmorphone 2 MG/ML 1 ML SYRINGE IVP PRN ×4 (01:45→14:45)
[2019-07-19] MEDS: fentaNYL (PF) 1,000 MCG in SODIUM CHLORIDE 0.9% 80 ML IV SCH ×3 (04:06→22:39)
[2019-07-19 04:31] LABS: HGB 7.7 gm/dL (13.0-17.5); MCH 32.3 pg (25.0-35.0); MCHC 33.5 g/dL (31.0-37.0); MCV 96.4 fL (80.0-100.0); Mean Platelet Volume 9.9; RBC 2.39 m/uL (4.30-5.90); RDW 13.1 % (11.5-15.5); WBC 17.4 k/uL (3.8-10.6)
[2019-07-19 04:41] LABS: Calcium 7.5 mg/dL (8.4-10.2); Phosphorus 8.6 mg/dL (2.5-4.5)
[2019-07-19 04:42] LABS: Potassium 5.4 mmol/L (3.5-5.1)
[2019-07-19 04:43] LABS: Magnesium 2.1 mg/dL (1.6-2.3)
[2019-07-19 04:46] LABS: Band Neutrophils % 12 %; Lymphocytes # (M) 0.35 k/uL (1.0-4.8); Metamyelocytes # (M) 0.17 k/uL (0); Metamyelocytes % 1 %; Monocytes # (M) 0.17 k/uL (0-1.0); Neutrophils % (M) 80 %; Nucleated Red Blood Cells 0 /100 WBC (0-0); Total Cells Counted 100
[2019-07-19 05:04] LABS: ABG Base Excess -2.7 mmol/L; ABG HCO3 23 mmol/L (21-25); ABG Oxygen Saturation 96.6 % (94-97); ABG PCO2 39 mmHg (35-45); ABG PH 7.37 (7.35-7.45); ABG PO2 85 mmHg (83-108); ABG TCO2 24 mmol/L (19-24); Allen Test Performed? Yes
[2019-07-19 06:45] LABS: Platelet Count 120 k/uL (150-450)
[2019-07-19 08:19] LABS: Glucose,Whole Blood 154 mg/dL (75-99)
--- NOTE | 2019-07-19 08:22 | XR ---
EXAMINATION TYPE: XR chest 1V DATE OF EXAM: 07/19/2019 COMPARISON: Prior chest x-ray 07/18/2019 HISTORY: Intubated TECHNIQUE: Single frontal view of the chest is obtained. FINDINGS: Endotracheal tube and NG tube are overlying appropriate positions, distal tip the NG tube not included on exam. Left jugular central venous catheter is stable. Pleural parenchymal changes rell w similar appearance. No evident pneumothorax. Heart size is likely stable. There is prominence of th e central vascularity. IMPRESSION: Correlate for congestive heart failure, there may be basilar effusions, atelectasis, monico ma, pneumonia not excluded.
[2019-07-19] MEDS: metroNIDAZOLE-NS PMX 500 MG in SALINE 1 100ML.BAG IVPB SCH ×2 (08:23→17:25)
[2019-07-19] MEDS: PANTOPRAZOLE 40 MG/10 ML VIAL IV SCH (08:23)
[2019-07-19] MEDS: CHLORHEXIDINE GLUCONATE 15 ML CUP MUCOUS MEM SCH ×2 (08:24→20:12)
[2019-07-19] MEDS: ENOXAPARIN 30 MG/0.3 ML SYRINGE SQ SCH (08:24)
--- NOTE | 2019-07-19 09:54 | P.PN ---
Subjective Progress Note Date: 07/19/19 The patient has gallstone pancreatitis. He is post open cholecystectomy that was done 2 days ago and the patient is postop day #2. Incision is dry clean and intact at this point in time. On today's evaluation of 07/19/2019 the patient is essentially the same. Clinically is sedated with a combination of propofol and fentanyl. Fentanyl had to be admitted yesterday to achieve better sedation and control his agitation. Fentanyl is currently running at 100 mcg/h. Propofol is running at 50 g per KG per minute. He is asynchronous with a mechanical ventilator. He is an assist-control. Tidal volumes of 450 with an FiO2 of 50% and a PEEP of 5 and a rate of 28. Blood gases showed a pH of 7.37 w ith a pCO2 of 39 and pO2 of 85. Chest x-rays showing small lung volumes with moderate-sized bilateral pleural effusions. He remains in positive fluid balance of fluid overload. He has gained fluid steadily over the past week. He does have extensive edema in the upper and lower extremities. Diet is being done a daily basis and the goal of ultrafiltration is only 2 L. Would like to discuss this further with nephrology to achieve a better fluid balance and diuresis but these ultrafiltration for now. Symptoms of his urine output is in the order of 10 mL an hour. Creatinine is down to 6.6. Potassium is at 5.4. He had a temperature of 11.3 this morning. He is covered with a combination of cefepime and Flagyl. He is on TPN for nutritional support. If the triple-lumen cath in his left IJ. The dialysis catheter is in his right femoral vein. The white cell count is at 17.4. Hypoactive bowel sounds. note that the patient has required some pressors during dialysis. Currently after infusion is running at 12 g per minute. The MARICHUY drain is draining in the order of 40 mL over the past 8 hours. NG tube in place draining around 200 mL over the past 8 hours. Objective - Vital Signs Vital signs: Vital Signs Temp 101.3 F H 07/19/19 08:00 Pulse 100 07/19/19 09:15 Resp 28 H 07/19/19 09:15 BP 118/60 07/19/19 08:00 Pulse Ox 98 07/19/19 09:15 Intake & Output 07/18/19 07/19/19 07/19/19 18:59 06:59 18:59 Intake Total 9409.473 5803.152 518.434 Output Total 2915 272 34 Balance -6942.757 5230.152 484.434 Weight 147.8 kg Intake: IV 1215 1389 418 0.9 pressure bags 78 66 18 Albumin Human 25% 50 ml 50 In Empty Bag 1 bag @ 50 mls/hr IVPB Q1H [facility] Rx#: [id number] Albumin Human 25% 50 ml 50 In Empty Bag 1 bag @ 50 mls/hr IVPB Q1H [facility] Rx#: [id number] Cefepime 1 gm In Sodium 50 Chloride 0.9% 50 ml @ 100 mls/hr IVPB Q24H [facility] Rx# :[id number] Mvi, Adult No.4 with Vit 497 770 210 K 10 ml Trace (Conc-1Ml/ Dose) 1 ml Sodium Acetate 60 meq Calcium Gluconate 1 gm In Amino Acid 5%- D15w 1,000 ml @ 70 mls/hr IV .BY DURATION OBEY Rx#: [id number] Sodium Chloride 0.9% 1, 440 303 90 000 ml @ 30 mls/hr IV . Q24H [facility] Rx#:[id number] metroNIDAZOLE-NS PMX 500 100 200 100 mg In Saline 1 100ml.bag @ 100 mls/hr IVPB Q8HR [facility] Rx#:[id number] Intake, IV Titration 630.417 649.152 100.434 Amount Mvi, Adult No.4 with Vit 70 K 10 ml Trace (Conc-1Ml/ Dose) 1 ml Sodium Acetate 60 meq Calcium Gluconate 1 gm In Amino Acid 5%- D15w 1,000 ml @ 70 mls/hr IV .BY DURATION [facility]BEY Rx#: [id number] Norepinephrine 32 mg In 102.748 13.444 0.434 Sodium Chloride 0.9% 218 ml @ 0.05 MCG/KG/MIN 3. 253 mls/hr IV .Q24H [facility] Rx#:[id number] Propofol 1,000 mg In 457.669 556.286 100 Empty Bag 1 bag @ Titrate IV .Q0M [facility] Rx#: [id number] fentaNYL (PF) 1,000 mcg 79.422 In Sodium Chloride 0.9% 80 ml @ 0.71 MCG/KG/HR 10 .139 mls/hr IV .Q9H52M [facility] Rx#:[id number] Oral 0 Output: Gastric Drainage 700 Drainage 45 60 Right Abdomen 45 60 Urine 170 212 34 Hemodialysis 1999 Other: Voiding Method Indwelling Catheter Indwelling Catheter # Voids 2 ABP, PAP, CO, CI - Last Documented Arterial Blood Pressure 102/50 - Exam Gen. appearance, comfortable likely this is intubated on a mechanical ventilator. Orogastric and orotracheal tube are both in place. The patient has a right IJ triple-lumen catheter in place. Head exam was generally normal. There was no scleral icterus or corneal arcus. Mucous membranes were moist. Neck was supple and without jugular venous distension, thyromegaly, or carotid bruits. Carotids were easily palpable bilaterally. There was no adenopathy. Lungs sounds are diminished bilaterally especially in the lung bases. No wheezes or rhonchi. Cardiac exam revealed the PMI to be normally situated and sized. The rhythm was regular and no extrasystoles were noted during several minutes of auscultation. The first and second heart sounds were normal and physiologic splitting of the second heart sound was noted. There were no murmurs, rubs, clicks, or gallops. Abdominal exam revealed normal bowel sounds. The abdomen was soft, non-tender, and without masses, organomegaly, or appreciable enlargement of the abdominal aorta.Bowel sounds are hypoactive at this point in time. No direct tenderness or rebound tenderness or guarding. No ascites.the patient has an incision in the right upper quadrant and the incision site is dry clean and intact and the patient has a MARICHUY drain in the right upper quadrant also. Bowel sounds are hypoactive. No direct tenderness. No rebound tenderness. No guarding. Scrotal edema. Extremities revealed +1 pitting edema and there is no cyanosis or clubbing at this point in time. Neurologic the patient is easily arousable off sedation. His currently well sedated with propofol. Skin the patient has a temporary dialysis catheter in his right femoral vein. - Labs CBC & Chem 7: 07/19/19 04:00 07/19/19 04:00 Labs: Abnormal Lab Results - Last 24 Hours (Table) 07/17/19 07/18/19 07/18/19 Range/Units 14:45 11:08 13:20 WBC (3.8-10.6) k/uL RBC (4.30-5.90) m/uL Hgb (13.0-17.5) gm/dL Hct (39.0-53.0) % Plt Count (150-450) k/uL Neutrophils # (Manual) (1.3-7.7) k/uL Lymphocytes # (Manual) (1.0-4.8) k/uL Metamyelocytes # (Man) (0) k/uL Sodium (137-145) mmol/L Potassium 5.4 H (3.5-5.1) mmol/L Carbon Dioxide (22-30) mmol/L BUN (9-20) mg/dL Creatinine (0.66-1.25) mg/dL Glucose (74-99) mg/dL POC Glucose (mg/dL) 183 H (75-99) mg/dL Calcium (8.4-10.2) mg/dL Phosphorus (2.5-4.5) mg/dL Crossmatch See Detail 07/18/19 07/18/19 07/18/19 Range/Units 13:30 13:56 17:56 WBC 18.9 H (3.8-10.6) k/uL RBC 2.64 L (4.30-5.90) m/uL Hgb 8.3 L (13.0-17.5) gm/dL Hct 25.7 L (39.0-53.0) % Plt Count 73 L (150-450) k/uL Neutrophils # (Manual) (1.3-7.7) k/uL Lymphocytes # (Manual) (1.0-4.8) k/uL Metamyelocytes # (Man) (0) k/uL Sodium (137-145) mmol/L Potassium (3.5-5.1) mmol/L Carbon Dioxide (22-30) mmol/L BUN (9-20) mg/dL Creatinine (0.66-1.25) mg/dL Glucose (74-99) mg/dL POC Glucose (mg/dL) 212 H 154 H (75-99) mg/dL Calcium (8.4-10.2) mg/dL Phosphorus (2.5-4.5) mg/dL Crossmatch 07/18/19 07/19/19 07/19/19 Range/Units 23:55 04:00 04:00 WBC 17.4 H (3.8-10.6) k/uL RBC 2.39 L (4.30-5.90) m/uL Hgb 7.7 L (13.0-17.5) gm/dL Hct 23.0 L (39.0-53.0) % Plt Count 120 L D (150-450) k/uL Neutrophils # (Manual) 16.00 H (1.3-7.7) k/uL Lymphocytes # (Manual) 0.35 L (1.0-4.8) k/uL Metamyelocytes # (Man) 0.17 H (0) k/uL Sodium 134 L (137-145) mmol/L Potassium 5.4 H (3.5-5.1) mmol/L Carbon Dioxide 21 L (22-30) mmol/L BUN 100 H (9-20) mg/dL Creatinine 6.60 H (0.66-1.25) mg/dL Glucose 149 H (74-99) mg/dL POC Glucose (mg/dL) 179 H (75-99) mg/dL Calcium 7.5 L (8.4-10.2) mg/dL Phosphorus 8.6 H (2.5-4.5) mg/dL Crossmatch 07/19/19 Range/Units 08:18 WBC (3.8-10.6) k/uL RBC (4.30-5.90) m/uL Hgb (13.0-17.5) gm/dL Hct (39.0-53.0) % Plt Count (150-450) k/uL Neutrophils # (Manual) (1.3-7.7) k/uL Lymphocytes # (Manual) (1.0-4.8) k/uL Metamyelocytes # (Man) (0) k/uL Sodium (137-145) mmol/L Potassium (3.5-5.1) mmol/L Carbon Dioxide (22-30) mmol/L BUN (9-20) mg/dL Creatinine (0.66-1.25) mg/dL Glucose (74-99) mg/dL POC Glucose (mg/dL) 154 H (75-99) mg/dL Calcium (8.4-10.2) mg/dL Phosphorus (2.5-4.5) mg/dL Crossmatch Assessment and Plan Plan: 1 Gallstone pancreatitis, improving. The patient also has an acute c holecystitis with cholelithiasis. The common bile duct was within normal limits. ERCPs and currently the patient is post open cholecystectomy and the patient is postop day #2. Currently remains on a combination of IV cefepime and Flagyl. Hemodynamically he has developed some hypotension especially during dialysis and he is currently being supported with norepinephrine infusion for blood pressure support. 2 severe pancreatitis, improving, amylase and lipase is improved. Currently on TPN for nutritional support. Consider enteral feeding 3 acute hypoxic respiratory failure with development of pulmonary edema and pleural effusions, underlying ARDS cannot be completely excluded in the setting of an acute pancreatitis, acid base status and oxygenation is improved compared to yesterday. Currently is on a PEEP of and FiO2 of 50%. Chest x-ray showing bilateral pleural effusions 4 acute kidney injury currently on hemodialysis, no hyperkalemia but the patient has significant amount of fluid overload and unable to catch with his fluid intake and he has been a positive fluid balance over the past 1 week. 5 hypotension, on pressors 6 alcoholism 7 smoker 8 hypertension history of 9 bilateral hearing loss 10 hyperphosphatemia, improving 11 leukocytosis, stable 12 TPN for nutritional support 13 open cholecystectomy, postop day #2 14 thrombocytopenia, platelet counts improving Plan Vent support, no vision changes IV fluids to KVO TPN for nutritional support and start the patient on enteral feeding at a low rate and assess his ability to tolerate enteral feeding post pancreatitis and post open cholecystectomy. Flagyl and cefepime as empiric antibiotic coverage propofol for sedation and fentanyl was also added for sedation Dialysis daily and consider SLED procedures to improve his fluid balance monitor the MARICHUY drain output and continue the same antibiotic coverage Pro-calcitonin level and give the patient IV Tylenol for temperature and send 2 sets of blood cultures from the lines Case was discussed with the family. Condition was explained. We'll continue to follow. Condition is critical. Evaluation was done and more than 30 minutes. Time with Patient: Greater than 30
--- NOTE | 2019-07-19 10:50 | P.PN ---
Subjective Patient is seen in follow-up for acute kidney injury, currently hemodialysis dependent. Patient remains intubated. Urine output 10-15 mL an hour. Still quite edematous. Currently on 12 mics of Levophed. He is receiving TPN at 70 mL an hour. Status post open cholecystectomy on July 17. Vital signs are stable. Blood pressure on the lower side. General: The patient appeared well nourished and normally developed. Intubated. HEENT: Head exam is unremarkable. Neck is without jugular venous distension. LUNGS: Lungs are clear to auscultation and percussion. Breath sounds decreased. HEART: Rate and Rhythm are regular. First and second heart sounds normal. No murmurs, rubs or gallops. ABDOMEN: Bowel sounds decreased. EXTREMITITES: 2+ edema. Scrotal edema noted. Objective - Vital Signs Vital signs: Vital Signs Temp 101.3 F H 07/19/19 08:00 Pulse 100 07/19/19 09:15 Resp 28 H 07/19/19 09:15 BP 118/60 07/19/19 08:00 Pulse Ox 98 07/19/19 09:15 Intake & Output 07/18/19 07/19/19 07/19/19 18:59 06:59 18:59 Intake Total 8758.257 4978.152 518.434 Output Total 2915 272 34 Balance -3384.328 9351.152 484.434 Weight 147.8 kg Intake: IV 1215 1389 418 0.9 pressure bags 78 66 18 Albumin Human 25% 50 ml 50 In Empty Bag 1 bag @ 50 mls/hr IVPB Q1H [facility] Rx#: [id number] Albumin Human 25% 50 ml 50 In Empty Bag 1 bag @ 50 mls/hr IVPB Q1H [facility] Rx#: [id number] Cefepime 1 gm In Sodium 50 Chloride 0.9% 50 ml @ 100 mls/hr IVPB Q24H [facility] Rx# :[id number] Mvi, Adult No.4 with Vit 497 770 210 K 10 ml Trace (Conc-1Ml/ Dose) 1 ml Sodium Acetate 60 meq Calcium Gluconate 1 gm In Amino Acid 5%- D15w 1,000 ml @ 70 mls/hr IV .BY DURATION OBEY Rx#: [id number] Sodium Chloride 0.9% 1, 440 303 90 000 ml @ 30 mls/hr IV . Q24H [facility] Rx#:[id number] metroNIDAZOLE-NS PMX 500 100 200 100 mg In Saline 1 100ml.bag @ 100 mls/hr IVPB Q8HR [facility] Rx#:[id number] Intake, IV Titration 630.417 649.152 100.434 Amount Mvi, Adult No.4 with Vit 70 K 10 ml Trace (Conc-1Ml/ Dose) 1 ml Sodium Acetate 60 meq Calcium Gluconate 1 gm In Amino Acid 5%- D15w 1,000 ml @ 70 mls/hr IV .BY DURATION OBEY Rx#: [id number] Norepinephrine 32 mg In 102.748 13.444 0.434 Sodium Chloride 0.9% 218 ml @ 0.05 MCG/KG/MIN 3. 253 mls/hr IV .Q24H OBE[facility] Rx#:[id number] Propofol 1,000 mg In 457.669 556.286 100 Empty Bag 1 bag @ Titrate IV .Q0M [facility] Rx#: [id number] fentaNYL (PF) 1,000 mcg 79.422 In Sodium Chloride 0.9% 80 ml @ 0.71 MCG/KG/HR 10 .139 mls/hr IV .Q9H52M [facility] Rx#:[id number] Oral 0 Output: Gastric Drainage 700 Drainage 45 60 Right Abdomen 45 60 Urine 170 212 34 Hemodialysis 1999 Other: Voiding Method Indwelling Catheter Indwelling Catheter # Voids 2 ABP, PAP, CO, CI - Last Documented Arterial Blood Pressure 102/50 - Labs CBC & Chem 7: 07/19/19 04:00 07/19/19 04:00 Labs: Abnormal Lab Results - Last 24 Hours (Table) 07/17/19 07/18/19 07/18/19 Range/Units 14:45 11:08 13:20 WBC (3.8-10.6) k/uL RBC (4.30-5.90) m/uL Hgb (13.0-17.5) gm/dL Hct (39.0-53.0) % Plt Count (150-450) k/uL Neutrophils # (Manual) (1.3-7.7) k/uL Lymphocytes # (Manual) (1.0-4.8) k/uL Metamyelocytes # (Man) (0) k/uL Sodium (137-145) mmol/L Potassium 5.4 H (3.5-5.1) mmol/L Carbon Dioxide (22-30) mmol/L BUN (9-20) mg/dL Creatinine (0.66-1.25) mg/dL Glucose (74-99) mg/dL POC Glucose (mg/dL) 183 H (75-99) mg/dL Calcium (8.4-10.2) mg/dL Phosphorus (2.5-4.5) mg/dL Crossmatch See Detail 07/18/19 07/18/19 07/18/19 Range/Units 13:30 13:56 17:56 WBC 18.9 H (3.8-10.6) k/uL RBC 2.64 L (4.30-5.90) m/uL Hgb 8.3 L (13.0-17.5) gm/dL Hct 25.7 L (39.0-53.0) % Plt Count 73 L (150-450) k/uL Neutrophils # (Manual) (1.3-7.7) k/uL Lymphocytes # (Manual) (1.0-4.8) k/uL Metamyelocytes # (Man) (0) k/uL Sodium (137-145) mmol/L Potassium (3.5-5.1) mmol/L Carbon Dioxide (22-30) mmol/L BUN (9-20) mg/dL Creatinine (0.66-1.25) mg/dL Glucose (74-99) mg/dL POC Glucose (mg/dL) 212 H 154 H (75-99) mg/dL Calcium (8.4-10.2) mg/dL Phosphorus (2.5-4.5) mg/dL Crossmatch 07/18/19 07/19/19 07/19/19 Range/Units 23:55 04:00 04:00 WBC 17.4 H (3.8-10.6) k/uL RBC 2.39 L (4.30-5.90) m/uL Hgb 7.7 L (13.0-17.5) gm/dL Hct 23.0 L (39.0-53.0) % Plt Count 120 L D (150-450) k/uL Neutrophils # (Manual) 16.00 H (1.3-7.7) k/uL Lymphocytes # (Manual) 0.35 L (1.0-4.8) k/uL Metamyelocytes # (Man) 0.17 H (0) k/uL Sodium 134 L (137-145) mmol/L Potassium 5.4 H (3.5-5.1) mmol/L Carbon Dioxide 21 L (22-30) mmol/L BUN 100 H (9-20) mg/dL Creatinine 6.60 H (0.66-1.25) mg/dL Glucose 149 H (74-99) mg/dL POC Glucose (mg/dL) 179 H (75-99) mg/dL Calcium 7.5 L (8.4-10.2) mg/dL Phosphorus 8.6 H (2.5-4.5) mg/dL Crossmatch 07/19/19 Range/Units 08:18 WBC (3.8-10.6) k/uL RBC (4.30-5.90) m/uL Hgb (13.0-17.5) gm/dL Hct (39.0-53.0) % Plt Count (150-450) k/uL Neutrophils # (Manual) (1.3-7.7) k/uL Lymphocytes # (Manual) (1.0-4.8) k/uL Metamyelocytes # (Man) (0) k/uL Sodium (137-145) mmol/L Potassium (3.5-5.1) mmol/L Carbon Dioxide (22-30) mmol/L BUN (9-20) mg/dL Creatinine (0.66-1.25) mg/dL Glucose (74-99) mg/dL POC Glucose (mg/dL) 154 H (75-99) mg/dL Calcium (8.4-10.2) mg/dL Phosphorus (2.5-4.5) mg/dL Crossmatch Assessment and Plan Plan: Assessment: 1. Acute kidney injury secondary to ATN secondary to septic shock, currently hemodialysis dependent. Started on hemodialysis July 15. Baseline creatinine is near 1 and peaked at greater than 8 this admission. 2. Volume overload. Partially due to third spacing due to hypoalbuminemia. 3. Severe acute pancreatitis. ERCP was attempted earlier this admission. Status post open cholecystectomy on July 17. 4. Hyperphosphatemia secondary to acute kidney injury. Not on phosphate binders as he is not eating at this time. 5. Ileus maintained on TPN. 6. Metabolic acidosis secondary to acute kidney injury. Stable. 7. Hyperkalemia secondary to acute kidney injury and metabolic acidosis. Stable. Mornings sample was hemolyzed. 8. Hypervolemic hyponatremia. Plan: Currently seen while undergoing hemodialysis - change to SLED; goal UF 3-4 L as able to tolerate. Continue with daily HD. Avoid nephrotoxins. Continue to monitor renal function and urine output. Case discussed with the gun examiner. Potentially stopping TPN today and starting enteral feeds.
[2019-07-19] MEDS: ACETAMINOPHEN IV (For NPO) 1,000 MG in EMPTY BAG 1 BAG IVPB PRN ×2 (11:29→22:39)
[2019-07-19 11:36] LABS: Glucose,Whole Blood 129 mg/dL (75-99)
[2019-07-19 11:56] LABS: Albumin 2.3 g/dL (3.5-5.0); Bilirubin, Conjugated 0.1 mg/dL (0.0-0.3); Total Bilirubin 1.1 mg/dL (0.2-1.3); Total Protein 3.9 g/dL (6.3-8.2)
--- NOTE | 2019-07-19 13:19 | CDI ---
Documentation Clarification Form Date: 07/19/2019 01:11:13 PM From: Diana Sanders RN, CCDS Admit Date: 07/11/2019 07:50:00 AM Patient Name: Wm Antonio Visit Number: [id number] Discharge Date: ATTENTION: The Clinical Documentation Specialists (CDI) and [facility] Coding Staff appreciate your assistance in clarifying documentation. Please respond to the clarification below the line at the bottom and electronically sign. The CDI & [facility] Coding staff will review the response and follow-up if needed. Please note: Queries are made part of the Legal Health Record. If you have any questions, please contact the author of this message via ITS. Dr. Fadi Lopez The patient presented with abdominal epigastric pain and admitted with acute cholecystitis with choledocholithiasis, acute gallstone pancreatitis. Noncardiogenic pulmonary edema is documented in your progress notes starting on 07/13/19 and further clarification is required. History/Risk Factors: Hypertension, Current same day smoker Clinical Indicators: 54-year-old male presented on 07/11/19 with complaints of abdominal pain ruled in for acute cholecystitis with choledocholithiasis and acute gallstone pancreatitis. On 07/13/19 you documented that the patient clinically deteriorated and was transferred to ICU and intubated. Lab findings: 07/13/19 at 07:59: WBC 22.5, HGB 18.4, BUN 68 CR 3.88, Lactic acid 2.3, Amylase 2061, Lipase 58333 07/13/19Chest x-ray shows fluid overload with bilateral pleural effusion. Vital Signs: 07/13/19 at 15:00; 168/86 124 20 87 % Mechanical vent 07/13/19 and subsequent documentation has acute hypoxic severe respiratory failure secondary to noncardiogenic pulmonary edema and /or ARDS. Treatment: Lasix IV (now dc) Hemodialysis per Nephrology Serial Chest x-ray per orders Monitor I/O Mechanical Vent monitoring per Pulmonary In your professional opinion, can you please further clarify noncardiogenic edema? Acute noncardiogenic pulmonary edema Other, please specify Unable to determine (Last Revision: October 2017) Acute noncardiogenic pulmonary edema MTDD
--- NOTE | 2019-07-19 13:25 | P.PN ---
Subjective Progress Note Date: 07/19/19 CHIEF COMPLAINT: Abdominal pain HISTORY OF PRESENT ILLNESS: Patient is status post open cholecystectomy. Postop day #2. Patient examined in the intensive care unit with Dr. Rosales. Patient remains on mechanical ventilation. Nursing reports 200 mL of drainage from OG tube overnight. MARICHUY with 60cc overnight and 40cc so far this morning. WBC 17.4 PHYSICAL EXAM: VITAL SIGNS: Reviewed. GENERAL: Well-developed in no acute distress-sedated on mechanical ventilation. HEENT: No sclera icterus. Extraocular movements grossly intact. Moist buccal mucosa. Head is atraumatic, normocephalic. ABDOMEN: Soft. Nondistended. Dressing CDI. MARICHUY with dark serosanguineous drainage. OG tube with dark bloody drainage. NEUROLOGIC: Sedated on mechanical ventilation ASSESSMENT: 1. Abdominal pain 2. Cholelithiasis, Possible choledocholithiasis 3. Pancreatitis 4. Hyperbilirubinemia 5. Transaminitis PLAN: Continue ventilator management per Dr. Rowland Continue to monitor labs Continue to monitor MARICHUY drain output and NG tube output Check LFTs Nurse practitioner note has been reviewed by physician. Signing provider agrees with the documented findings, assessment, and plan of care. Objective - Vital Signs Vital signs: Vital Signs Temp 99.6 F 07/19/19 12:06 Pulse 101 H 07/19/19 12:15 Resp 29 H 07/19/19 12:15 BP 120/53 07/19/19 12:06 Pulse Ox 97 07/19/19 12:15 Intake & Output 07/18/19 07/19/19 07/19/19 18:59 06:59 18:59 Intake Total 8407.694 7904.152 765.682 Output Total 2915 272 4059 Balance -1878.606 6482.152 -9013.318 Weight 147.8 kg 147.8 kg Intake: IV 1215 1389 571 0.9 pressure bags 78 66 36 Albumin Human 25% 50 ml 50 In Empty Bag 1 bag @ 50 mls/hr IVPB Q1H [facility] Rx#: [id number] Albumin Human 25% 50 ml 50 In Empty Bag 1 bag @ 50 mls/hr IVPB Q1H [facility] Rx#: [id number] Cefepime 1 gm In Sodium 50 Chloride 0.9% 50 ml @ 100 mls/hr IVPB Q24H [facility] Rx# :[id number] Mvi, Adult No.4 with Vit 497 770 315 K 10 ml Trace (Conc-1Ml/ Dose) 1 ml Sodium Acetate 60 meq Calcium Gluconate 1 gm In Amino Acid 5%- D15w 1,000 ml @ 70 mls/hr IV .BY DURATION [facility] Rx#: [id number] Sodium Chloride 0.9% 1, 440 303 120 000 ml @ 30 mls/hr IV . Q24H [facility] Rx#:[id number] metroNIDAZOLE-NS PMX 500 100 200 100 mg In Saline 1 100ml.bag @ 100 mls/hr IVPB Q8HR [facility] Rx#:[id number] Intake, IV Titration 630.417 649.152 194.682 Amount Mvi, Adult No.4 with Vit 70 K 10 ml Trace (Conc-1Ml/ Dose) 1 ml Sodium Acetate 60 meq Calcium Gluconate 1 gm In Amino Acid 5%- D15w 1,000 ml @ 70 mls/hr IV .BY DURATION [facility] Rx#: [id number] Norepinephrine 32 mg In 102.748 13.444 0.434 Sodium Chloride 0.9% 218 ml @ 0.05 MCG/KG/MIN 3. 253 mls/hr IV .Q24H [facility] Rx#:[id number] Propofol 1,000 mg In 457.669 556.286 194.248 Empty Bag 1 bag @ Titrate IV .Q0M [facility] Rx#: [id number] fentaNYL (PF) 1,000 mcg 79.422 In Sodium Chloride 0.9% 80 ml @ 0.71 MCG/KG/HR 10 .139 mls/hr IV .Q9H52M [facility] Rx#:[id number] Oral 0 Output: Gastric Drainage 700 Drainage 45 60 Right Abdomen 45 60 Urine 170 212 59 Hemodialysis 2000 4000 Other: Voiding Method Indwelling Catheter Indwelling Catheter Indwelling Catheter # Voids 2 ABP, PAP, CO, CI - Last Documented Arterial Blood Pressure 131/55 - Labs CBC & Chem 7: 07/19/19 04:00 07/19/19 04:00 Labs: Abnormal Lab Results - Last 24 Hours (Table) 07/17/19 07/18/19 07/18/19 Range/Units 14:45 13:20 13:30 WBC 18.9 H (3.8-10.6) k/uL RBC 2.64 L (4.30-5.90) m/uL Hgb 8.3 L (13.0-17.5) gm/dL Hct 25.7 L (39.0-53.0) % Plt Count 73 L (150-450) k/uL Neutrophils # (Manual) (1.3-7.7) k/uL Lymphocytes # (Manual) (1.0-4.8) k/uL Metamyelocytes # (Man) (0) k/uL Sodium (137-145) mmol/L Potassium 5.4 H (3.5-5.1) mmol/L Carbon Dioxide (22-30) mmol/L BUN (9-20) mg/dL Creatinine (0.66-1.25) mg/dL Glucose (74-99) mg/dL POC Glucose (mg/dL) (75-99) mg/dL Calcium (8.4-10.2) mg/dL Phosphorus (2.5-4.5) mg/dL Delta Bilirubin (0.0-0.2) mg/dL AST (17-59) U/L ALT (4-49) U/L Total Protein (6.3-8.2) g/dL Albumin (3.5-5.0) g/dL Crossmatch See Detail 07/18/19 07/18/19 07/18/19 Range/Units 13:56 17:56 23:55 WBC (3.8-10.6) k/uL RBC (4.30-5.90) m/uL Hgb (13.0-17.5) gm/dL Hct (39.0-53.0) % Plt Count (150-450) k/uL Neutrophils # (Manual) (1.3-7.7) k/uL Lymphocytes # (Manual) (1.0-4.8) k/uL Metamyelocytes # (Man) (0) k/uL Sodium (137-145) mmol/L Potassium (3.5-5.1) mmol/L Carbon Dioxide (22-30) mmol/L BUN (9-20) mg/dL Creatinine (0.66-1.25) mg/dL Glucose (74-99) mg/dL POC Glucose (mg/dL) 212 H 154 H 179 H (75-99) mg/dL Calcium (8.4-10.2) mg/dL Phosphorus (2.5-4.5) mg/dL Delta Bilirubin (0.0-0.2) mg/dL AST (17-59) U/L ALT (4-49) U/L Total Protein (6.3-8.2) g/dL Albumin (3.5-5.0) g/dL Crossmatch 07/19/19 07/19/19 07/19/19 Range/Units 04:00 04:00 08:18 WBC 17.4 H (3.8-10.6) k/uL RBC 2.39 L (4.30-5.90) m/uL Hgb 7.7 L (13.0-17.5) gm/dL Hct 23.0 L (39.0-53.0) % Plt Count 120 L D (150-450) k/uL Neutrophils # (Manual) 16.00 H (1.3-7.7) k/uL Lymphocytes # (Manual) 0.35 L (1.0-4.8) k/uL Metamyelocytes # (Man) 0.17 H (0) k/uL Sodium 134 L (137-145) mmol/L Potassium 5.4 H (3.5-5.1) mmol/L Carbon Dioxide 21 L (22-30) mmol/L BUN 100 H (9-20) mg/dL Creatinine 6.60 H (0.66-1.25) mg/dL Glucose 149 H (74-99) mg/dL POC Glucose (mg/dL) 154 H (75-99) mg/dL Calcium 7.5 L (8.4-10.2) mg/dL Phosphorus 8.6 H (2.5-4.5) mg/dL Delta Bilirubin 1.0 H (0.0-0.2) mg/dL AST 86 H (17-59) U/L ALT 79 H (4-49) U/L Total Protein 3.9 L (6.3-8.2) g/dL Albumin 2.3 L (3.5-5.0) g/dL Crossmatch 07/19/19 Range/Units 11:34 WBC (3.8-10.6) k/uL RBC (4.30-5.90) m/uL Hgb (13.0-17.5) gm/dL Hct (39.0-53.0) % Plt Count (150-450) k/uL Neutrophils # (Manual) (1.3-7.7) k/uL Lymphocytes # (Manual) (1.0-4.8) k/uL Metamyelocytes # (Man) (0) k/uL Sodium (137-145) mmol/L Potassium (3.5-5.1) mmol/L Carbon Dioxide (22-30) mmol/L BUN (9-20) mg/dL Creatinine (0.66-1.25) mg/dL Glucose (74-99) mg/dL POC Glucose (mg/dL) 129 H (75-99) mg/dL Calcium (8.4-10.2) mg/dL Phosphorus (2.5-4.5) mg/dL Delta Bilirubin (0.0-0.2) mg/dL AST (17-59) U/L ALT (4-49) U/L Total Protein (6.3-8.2) g/dL Albumin (3.5-5.0) g/dL Crossmatch
[2019-07-19] MEDS: CALCIUM GLUCONATE IV SCH ×5 (14:26)
[2019-07-19] MEDS: MVI IV SCH ×5 (14:26)
[2019-07-19] MEDS: SODIUM ACETATE IV SCH ×5 (14:26)
[2019-07-19] MEDS: AMINO ACID 5% IV SCH ×5 (14:26)
[2019-07-19 16:06] LABS: Glucose,Whole Blood 127 mg/dL (75-99)
[2019-07-19] MEDS: HEPARIN SODIUM,PORCINE 5,000 UNIT/ML 1 ML VIAL SQ SCH (17:25)
[2019-07-19] MEDS: NOREPINEPHRINE 32 MG in SODIUM CHLORIDE 0.9% 218 ML IV SCH (19:45)
--- NOTE | 2019-07-19 23:03 | P.PN ---
Progress Note - Text Progress Note Date: 07/19/19 nterval history: This is a pleasant [address] Malloy. Patient for about 2 years has had episodes of upper abdominal epigastric pain lasted for about half an hour. The pain does up to present to become severe within relaxes. Started off about 2 years ago when he states the frequency is increased. More so frequently in the last 2 weeks. Especially yesterday morning patient became rather severe. Epigastric. Started having nausea vomiting. Had fever or chills. Also been getting heartburn. Patient drinks about 12 beers over the weekend. Otherwise in good health. Admitted with-acute cholecystitis with choledocholithiasis, acute gallstone pancreatitis.patient clinically deteriorated and was transferred to the ICU on July 13. Patient intubated.when into renal failure. Started with hemodialysis. Patient underwent open cholecystectomy with gallstone removal on 07/17/2019. Today-ICU.received a unit of blood. Yesterday evening. Remains on the ventilator. FiO2 15 of PEEP of 5. On propofol and dose of norepinephrine. Hemodialysis today. and mother the bedside. decrease MARICHUY output with about 40 mL per shift now. Review of systems: patient is intubated Active Medications Acetaminophen (Tylenol Tab) 650 mg PO Q4HR PRN PRN Reason: Fever and/or Mild Pain Albuterol/Ipratropium (Duoneb 0.5 Mg-3 Mg/3 Ml Soln) 3 ml INHALATION RT-TID PRN PRN Reason: Shortness Of Breath Or Wheezing Albuterol/Ipratropium (Duoneb 0.5 Mg-3 Mg/3 Ml Soln) 3 ml INHALATION RT-Q4H [facility] Last Admin: 07/19/19 19:13 Dose: 3 ml Documented by: Chlorhexidine Gluconate (Peridex) 15 ml MUCOUS MEM BID [facility] Last Admin: 07/19/19 20:12 Dose: 15 ml Documented by: Heparin Sodium (Porcine) (Heparin) 5,000 unit SQ Q8HR [facility] Last Admin: 07/19/19 17:25 Dose: 5,000 unit Documented by: Hydromorphone HCl (Dilaudid) 2 mg IVP Q2H PRN PRN Reason: Moderate Pain Last Admin: 07/19/19 14:45 Dose: 2 mg Documented by: Metronidazole 500 mg/ IV (Solution) 100 mls @ 100 mls/hr IVPB Q8HR [facility] Last Admin: 07/19/19 17:25 Dose: 100 mls/hr Documented by: Cefepime HCl 1 gm/ Sodium (Chloride) 50 mls @ 100 mls/hr IVPB Q24H [facility] Last Admin: 07/19/19 01:45 Dose: 100 mls/hr Documented by: Propofol 1,000 mg/ IV Solution 100 mls @ 0 mls/hr IV .Q0M [facility]; Protocol Last Admin: 07/19/19 20:55 Dose: 50 mcg/kg/min, 42.84 mls/hr Documented by: Norepinephrine Bitartrate 32 (mg/ Sodium Chloride) 250 mls @ 3.253 mls/hr IV .Q24H [facility]; Protocol Last Titration: 07/19/19 21:10 Dose: 0 mcg/kg/min, 0 mls/hr Documented by: Fentanyl Citrate 1,000 mcg/ (Sodium Chloride) 100 mls @ 10.139 mls/hr IV .Q9H52M [facility] Last Admin: 07/19/19 22:39 Dose: 0.71 mcg/kg/hr, 10.139 mls/hr Documented by: Acetaminophen 1,000 mg/ IV (Solution) 100 mls @ 400 mls/hr IVPB Q6HR PRN PRN Reason: Fever Stop: 07/20/19 06:14 Last Admin: 07/19/19 22:39 Dose: 400 mls/hr Documented by: Insulin Aspart (Novolog) 0 unit SQ Q6H [facility]; Protocol Naloxone HCl (Narcan) 0.2 mg IV Q2M PRN PRN Reason: Opioid Reversal Ondansetron HCl (Zofran) 4 mg IVP Q8HR PRN PRN Reason: Nausea And Vomiting Pantoprazole Sodium (Protonix) 40 mg IV DAILY [facility] Last Admin: 07/19/19 08:23 Dose: 40 mg Documented by: Physical examination: VITAL SIGNS: 99, 99, 20, 131/64, 96% on the ventilator GENERAL: laying in bed, intubated. EYES: Pupils equal. Conjunctiva normal. HEENT: External appearance of nose and ears normal, oral cavity grossly normal., endotracheal tube in place, NG tube in place NECK: JVD not raised; masses not palpable. HEART: First and second heart sounds are normal; no edema. LUNGS: Respiratory rate increased, decreased breath sounds. ABDOMEN: Soft, dressing over the incision, MARICHUY drain is present. With bloody output PSYCH: sedated INVESTIGATIONS, reviewed in the clinical context: white count 17.4 hemoglobin 7.7potassium 5.4 100 creatinine 6.6 Previous testing White count 13 hemoglobin 18.4 pressures 59 progression 4.3 crit 1.16 Total bilirubin 2.9 AST 440 ALT 574 Amylase 2794, lipase greater than 20,000 Computed tomography scan-moderate peripancreatic fat stranding, gallstones and a distended gallbladder with gallbladder wall thickening. Abdominal ultrasound-gallbladder thickening with intermittent small stones. Pericholecystic fluid EKG tracing-personally reviewed by me shows normal sinus rhythm nonspecific T- wave changes blood culture and sputum culture both negative Assessment: -Acute cholecystitis secondary to choledocholithiasis, with possible ascending cholangitis,causing sepsis, status post open cholecystectomy on July 17. -Acute postprocedure blood loss anemia as expected from surgery -Acute gallstone pancreatitis, , improved -Acute renal failure, likely ATN from hepatorenal, worsening, started on renal replacement therapy on July 15 -Essential hypertension -Septic and hypovolemic shock, requiring pressure support, back on levo fed -Obesity BMI 34.4 -Hyperkalemia in a patient does take LORENA inhibitor's the setting of renal failure -Severe metabolic acidosis with lactic acidosis -Acute hypoxic severe respiratory failure secondary to noncardiogenic pulmonary edema and/or ARDS, requiring ventilator support, slow to respond -Symptomatic anemia from blood loss from the MARICHUY drain requiring patient to go back to levo fed., Plan: patient remains on IV Levophed, propofol. Antibiotics in the form of cefepime and IV Flagyl. Discussed with the patient's mother and . Remains in the ICU. Critically ill
[2019-07-20 00:19] LABS: Glucose,Whole Blood 111 mg/dL (75-99)
[2019-07-20] MEDS: IPRATROPIUM-ALBUTEROL 3 ML NEB INHALATION SCH ×8 (01:00→23:28)
[2019-07-20] MEDS: INSULIN ASPART (NovoLOG) 100 UNIT/ML VIAL SQ SCH ×4 (01:05→18:30)
[2019-07-20] MEDS: metroNIDAZOLE-NS PMX 500 MG in SALINE 1 100ML.BAG IVPB SCH ×3 (01:06→15:53)
[2019-07-20] MEDS: PROPOFOL 1,000 MG in EMPTY BAG 1 BAG IV SCH ×8 (01:07→22:09)
[2019-07-20] MEDS: HEPARIN SODIUM,PORCINE 5,000 UNIT/ML 1 ML VIAL SQ SCH ×3 (01:07→15:53)
[2019-07-20] MEDS: CEFEPIME 1 GM in SODIUM CHLORIDE 0.9% 50 ML IVPB SCH (01:59)
[2019-07-20 05:01] LABS: Basophils # (A) 0.3 k/uL (0-0.2); Basophils % (A) 1 %; Eosinophils # (A) 0.5 k/uL (0-0.7); Eosinophils % (A) 2 %; HCT 25.9 % (39.0-53.0); HGB 8.5 gm/dL (13.0-17.5); Lymphocytes # (A) 0.5 k/uL (1.0-4.8); Lymphocytes % (A) 2 %; MCH 31.2 pg (25.0-35.0); MCHC 32.8 g/dL (31.0-37.0); Mean Platelet Volume 9.1; Monocytes % (A) 4 %; Neutrophils # (A) 24.1 k/uL (1.3-7.7); Neutrophils % (A) 90 %; RBC 2.73 m/uL (4.30-5.90); RDW 13.2 % (11.5-15.5); WBC 26.7 k/uL (3.8-10.6)
[2019-07-20 05:02] LABS: Platelet Count 192 k/uL (150-450)
[2019-07-20 05:08] LABS: Calcium 7.8 mg/dL (8.4-10.2); Potassium 5.3 mmol/L (3.5-5.1)
[2019-07-20] MEDS: HYDROmorphone 2 MG/ML 1 ML SYRINGE IVP PRN (05:08)
[2019-07-20 05:24] LABS: ABG Base Excess -3.3 mmol/L; ABG HCO3 22 mmol/L (21-25); ABG Oxygen Saturation 96.4 % (94-97); ABG PCO2 35 mmHg (35-45); ABG PH 7.39 (7.35-7.45); ABG PO2 82 mmHg (83-108); ABG TCO2 23 mmol/L (19-24); Allen Test Performed? Yes
[2019-07-20 05:27] LABS: Phosphorus 9.9 mg/dL (2.5-4.5)
[2019-07-20] MEDS: fentaNYL (PF) 1,000 MCG in SODIUM CHLORIDE 0.9% 80 ML IV SCH ×2 (06:38→16:09)
[2019-07-20] MEDS ORDERED: HEPARIN SODIUM,PORCINE 5,000 UNIT/ML 1 ML VIAL ONE (07:12)
--- NOTE | 2019-07-20 09:00 | XR ---
EXAMINATION TYPE: XR chest 1V DATE OF EXAM: 07/20/2019 COMPARISON: Prior chest x-ray 07/19/2019 HISTORY: Intubated TECHNIQUE: Single frontal view of the chest is obtained. FINDINGS: Endotracheal tube, NG tube, left jugular central venous catheter appears stable and overly ing appropriate positions. No evident pneumothorax. Lung volumes are low. Heart remains enlarged. Bib asilar increased density is present. There is improvement in aeration in the upper lobes. No evident pneumothorax. IMPRESSION: Improved aeration.
--- NOTE | 2019-07-20 10:31 | P.PN ---
Subjective Patient is seen in follow-up for acute kidney injury, currently hemodialysis dependent. Patient remains intubated. Urine output 10-15 mL an hour. Still quite edematous. Currently on 0.05 mcg/kg/hr of Levophed. He is receiving tube feeding. Status post open cholecystectomy on July 17. Vital signs are stable. Blood pressure on the lower side. General: The patient appeared well nourished and normally developed. Intubated. HEENT: Head exam is unremarkable. Neck is without jugular venous distension. LUNGS: Lungs are clear to auscultation and percussion. Breath sounds decreased. HEART: Rate and Rhythm are regular. First and second heart sounds normal. No murmurs, rubs or gallops. ABDOMEN: Bowel sounds decreased. EXTREMITITES: 2+ edema. Scrotal edema noted. Objective - Vital Signs Vital signs: Vital Signs Temp 99.4 F 07/20/19 10:23 Pulse 97 07/20/19 10:23 Resp 30 H 07/20/19 10:23 BP 124/66 07/20/19 10:23 Pulse Ox 96 07/20/19 07:00 Intake & Output 07/19/19 07/20/19 07/20/19 18:59 06:59 18:59 Intake Total 3563.856 4194.092 59.036 Output Total 4154 340 515 Balance -2762.450 1127.092 -455.964 Weight 147.8 kg 147.7 kg Intake: IV 897 622 36 0.9 pressure bags 72 72 6 Cefepime 1 gm In Sodium 100 Chloride 0.9% 50 ml @ 100 mls/hr IVPB Q24H [facility] Rx# :[id number] Mvi, Adult No.4 with Vit 385 K 10 ml Trace (Conc-1Ml/ Dose) 1 ml Sodium Acetate 60 meq Calcium Gluconate 1 gm In Amino Acid 5%- D15w 1,000 ml @ 70 mls/hr IV .BY DURATION [facility] Rx#: [id number] Sodium Chloride 0.9% 1, 240 350 30 000 ml @ 30 mls/hr IV . Q24H [facility] Rx#:[id number] metroNIDAZOLE-NS PMX 500 200 100 mg In Saline 1 100ml.bag @ 100 mls/hr IVPB Q8HR [facility] Rx#:[id number] Intake, IV Titration 424.550 615.092 3.036 Amount Norepinephrine 32 mg In 33.813 42.560 3.036 Sodium Chloride 0.9% 218 ml @ 0.05 MCG/KG/MIN 3. 253 mls/hr IV .Q24H [facility] Rx#:[id number] Propofol 1,000 mg In 294.248 400 Empty Bag 1 bag @ Titrate IV .Q0M [facility] Rx#: [id number] fentaNYL (PF) 1,000 mcg 96.489 172.532 In Sodium Chloride 0.9% 80 ml @ 0.71 MCG/KG/HR 10 .139 mls/hr IV .Q9H52M [facility] Rx#:[id number] Tube Feeding 40 170 20 Other 30 60 Output: Drainage 40 90 Right Abdomen 40 90 Urine 114 250 15 Hemodialysis 4000 500 Other: Voiding Method Indwelling Catheter Indwelling Catheter ABP, PAP, CO, CI - Last Documented Arterial Blood Pressure 95/55 - Labs CBC & Chem 7: 07/20/19 04:25 07/20/19 04:25 Labs: Abnormal Lab Results - Last 24 Hours (Table) 07/17/19 07/19/19 07/19/19 Range/Units 14:45 04:00 04:00 WBC (3.8-10.6) k/uL RBC (4.30-5.90) m/uL Hgb (13.0-17.5) gm/dL Hct (39.0-53.0) % Neutrophils # (1.3-7.7) k/uL Lymphocytes # (1.0-4.8) k/uL Basophils # (0-0.2) k/uL ABG pO2 (83-108) mmHg Sodium 134 L (137-145) mmol/L Potassium 5.4 H (3.5-5.1) mmol/L Carbon Dioxide 21 L (22-30) mmol/L BUN 100 H (9-20) mg/dL Creatinine 6.60 H (0.66-1.25) mg/dL Glucose 149 H (74-99) mg/dL POC Glucose (mg/dL) (75-99) mg/dL Calcium 7.5 L (8.4-10.2) mg/dL Phosphorus 8.6 H (2.5-4.5) mg/dL Delta Bilirubin 1.0 H (0.0-0.2) mg/dL AST 86 H (17-59) U/L ALT 79 H (4-49) U/L Total Protein 3.9 L (6.3-8.2) g/dL Albumin 2.3 L (3.5-5.0) g/dL Procalcitonin 2.70 H (0.02-0.09) ng/mL Crossmatch See Detail 07/19/19 07/19/19 07/20/19 Range/Units 11:34 16:05 00:17 WBC (3.8-10.6) k/uL RBC (4.30-5.90) m/uL Hgb (13.0-17.5) gm/dL Hct (39.0-53.0) % Neutrophils # (1.3-7.7) k/uL Lymphocytes # (1.0-4.8) k/uL Basophils # (0-0.2) k/uL ABG pO2 (83-108) mmHg Sodium (137-145) mmol/L Potassium (3.5-5.1) mmol/L Carbon Dioxide (22-30) mmol/L BUN (9-20) mg/dL Creatinine (0.66-1.25) mg/dL Glucose (74-99) mg/dL POC Glucose (mg/dL) 129 H 127 H 111 H (75-99) mg/dL Calcium (8.4-10.2) mg/dL Phosphorus (2.5-4.5) mg/dL Delta Bilirubin (0.0-0.2) mg/dL AST (17-59) U/L ALT (4-49) U/L Total Protein (6.3-8.2) g/dL Albumin (3.5-5.0) g/dL Procalcitonin (0.02-0.09) ng/mL Crossmatch 07/20/19 07/20/19 07/20/19 Range/Units 04:25 04:25 05:19 WBC 26.7 H (3.8-10.6) k/uL RBC 2.73 L (4.30-5.90) m/uL Hgb 8.5 L (13.0-17.5) gm/dL Hct 25.9 L (39.0-53.0) % Neutrophils # 24.1 H (1.3-7.7) k/uL Lymphocytes # 0.5 L (1.0-4.8) k/uL Basophils # 0.3 H (0-0.2) k/uL ABG pO2 82 L (83-108) mmHg Sodium 131 L (137-145) mmol/L Potassium 5.3 H (3.5-5.1) mmol/L Carbon Dioxide 20 L (22-30) mmol/L BUN 90 H (9-20) mg/dL Creatinine 6.85 H (0.66-1.25) mg/dL Glucose 112 H (74-99) mg/dL POC Glucose (mg/dL) (75-99) mg/dL Calcium 7.8 L (8.4-10.2) mg/dL Phosphorus 9.9 H* (2.5-4.5) mg/dL Delta Bilirubin (0.0-0.2) mg/dL AST (17-59) U/L ALT (4-49) U/L Total Protein (6.3-8.2) g/dL Albumin (3.5-5.0) g/dL Procalcitonin (0.02-0.09) ng/mL Crossmatch Assessment and Plan Plan: Assessment: 1. Acute kidney injury secondary to ATN secondary to septic shock, currently hemodialysis dependent. Started on hemodialysis July 15. Baseline creatinine is near 1 and peaked at greater than 8 this admission. 2. Volume overload. Partially due to third spacing due to hypoalbuminemia. 3. Severe acute pancreatitis. ERCP was attempted earlier this admission. Status post open cholecystectomy on July 17. 4. Hyperphosphatemia secondary to acute kidney injury. Not on phosphate binders as he is not eating at this time. 5. Ileus, s/p TPN. 6. Metabolic acidosis secondary to acute kidney injury. Stable. 7. Hyperkalemia secondary to acute kidney injury and metabolic acidosis. Stable. 8. Hypervolemic hyponatremia. Plan: Currently seen while undergoing SLED; goal UF 3-4 L as able to tolerate. Continue with daily HD. Will need new HD access and current catheter clotted off - discussed with vascular surgery. Avoid nephrotoxins. Continue to monitor renal function and urine output. Case discussed with the technical specialist cytogenetics - will try to extubate after dialysis.
[2019-07-20] MEDS: PANTOPRAZOLE 40 MG/10 ML VIAL IV SCH (10:50)
[2019-07-20] MEDS: CHLORHEXIDINE GLUCONATE 15 ML CUP MUCOUS MEM SCH ×2 (10:50→21:26)
[2019-07-20 11:25] LABS: Glucose,Whole Blood 107 mg/dL (75-99)
[2019-07-20 11:41] LABS: Albumin 2.4 g/dL (3.5-5.0); Total Bilirubin 1.4 mg/dL (0.2-1.3); Total Protein 4.2 g/dL (6.3-8.2)
--- NOTE | 2019-07-20 12:23 | P.PN ---
Subjective Progress Note Date: 07/20/19 The patient has gallstone pancreatitis. He is post open cholecystectomy that was done 2 days ago and the patient is postop day #2. Incision is dry clean and intact at this point in time. On today's evaluation of 07/19/2019 the patient is essentially the same. Clinically is sedated with a combination of propofol and fentanyl. Fentanyl had to be admitted yesterday to achieve better sedation and control his agitation. Fentanyl is currently running at 100 mcg/h. Propofol is running at 50 g per KG per minute. He is asynchronous with a mechanical ventilator. He is an assist-control. Tidal volumes of 450 with an FiO2 of 50% and a PEEP of 5 and a rate of 28. Blood gases showed a pH of 7.37 w ith a pCO2 of 39 and pO2 of 85. Chest x-rays showing small lung volumes with moderate-sized bilateral pleural effusions. He remains in positive fluid balance of fluid overload. He has gained fluid steadily over the past week. He does have extensive edema in the upper and lower extremities. Diet is being done a daily basis and the goal of ultrafiltration is only 2 L. Would like to discuss this further with nephrology to achieve a better fluid balance and diuresis but these ultrafiltration for now. Symptoms of his urine output is in the order of 10 mL an hour. Creatinine is down to 6.6. Potassium is at 5.4. He had a temperature of 11.3 this morning. He is covered with a combination of cefepime and Flagyl. He is on TPN for nutritional support. If the triple-lumen cath in his left IJ. The dialysis catheter is in his right femoral vein. The white cell count is at 17.4. Hypoactive bowel sounds. note that the patient has required some pressors during dialysis. Currently after infusion is running at 12 g per minute. The MARICHUY drain is draining in the order of 40 mL over the past 8 hours. NG tube in place draining around 200 mL over the past 8 hours. on 07/20/2019 I'm seeing the patient for a follow-up. Is postop day #3 following open cholecystectomy. The patient had a gallstone pancreatitis that was quite extensive complicated by multisystem organ failure including an acute kidney injury and the patient is currently hemodialysis dependent. the patient remains on a mechanical ventilator. This mornings an assist-control mode at the rate of 28 with FiO2 of 50% and a PEEP of 5 and a tidal volume of 450. He has a chest x-ray showing small lung volumes with some improvement in the volume status is a patient received adequate hemodialysis with ultrafiltration of 4 L yesterday. Currently his IV fluids to KVO. TPN was discontinued and he was given enteral feeding for nutritional support which she was able to tolerate without any major difficulties. He is on low-dose pressors and norepinephrine infusion is running at 0.04 g per KG per minute. she is still running a fever on and off and his white cell count is up to 26. I sent blood cultures yesterday. I kept him on his same combination of cefepime and Flagyl. Nevertheless, underlying infection/sepsis cannot be completely excluded as the patient has multiple lines imports and he was receiving TPN for nutritional support. For now,he is still sedated. He is unable to dialyze today as a temporary dialysis catheter in his right femoral area clotted off and this is to be replaced. I did make recommendations after patient with another temporary dialysis catheter permacath as the patient may potentially be infected. NG tube output is minimal. MARICHUY drain is in place and output was serosanguineous. Surgical wound site of the abdomen is dry clean and intact. Objective - Vital Signs Vital signs: Vital Signs Temp 99.4 F 07/20/19 10:23 Pulse 98 07/20/19 11:30 Resp 28 H 07/20/19 11:30 BP 143/75 07/20/19 11:00 Pulse Ox 100 07/20/19 11:30 Intake & Output 07/19/19 07/20/19 07/20/19 18:59 06:59 18:59 Intake Total 8872.699 1185.092 363.036 Output Total 4154 340 595 Balance -2762.450 1127.092 -231.964 Weight 147.8 kg 147.7 kg Intake: IV 897 622 240 0.9 pressure bags 72 72 30 Cefepime 1 gm In Sodium 100 Chloride 0.9% 50 ml @ 100 mls/hr IVPB Q24H [facility] Rx# :[id number] Mvi, Adult No.4 with Vit 385 K 10 ml Trace (Conc-1Ml/ Dose) 1 ml Sodium Acetate 60 meq Calcium Gluconate 1 gm In Amino Acid 5%- D15w 1,000 ml @ 70 mls/hr IV .BY DURATION [facility] Rx#: [id number] Sodium Chloride 0.9% 1, 240 350 110 000 ml @ 30 mls/hr IV . Q24H [facility] Rx#:[id number] metroNIDAZOLE-NS PMX 500 200 100 100 mg In Saline 1 100ml.bag @ 100 mls/hr IVPB Q8HR [facility] Rx#:[id number] Intake, IV Titration 424.550 615.092 103.036 Amount Norepinephrine 32 mg In 33.813 42.560 3.036 Sodium Chloride 0.9% 218 ml @ 0.05 MCG/KG/MIN 3. 253 mls/hr IV .Q24H [facility] Rx#:[id number] Propofol 1,000 mg In 294.248 400 100 Empty Bag 1 bag @ Titrate IV .Q0M [facility] Rx#: [id number] fentaNYL (PF) 1,000 mcg 96.489 172.532 In Sodium Chloride 0.9% 80 ml @ 0.71 MCG/KG/HR 10 .139 mls/hr IV .Q9H52M [facility] Rx#:[id number] Tube Feeding 40 170 20 Other 30 60 Output: Drainage 40 90 Right Abdomen 40 90 Urine 114 250 95 Hemodialysis 4000 500 Other: Voiding Method Indwelling Catheter Indwelling Catheter ABP, PAP, CO, CI - Last Documented Arterial Blood Pressure 134/66 - Exam Gen. appearance, comfortable likely this is intubated on a mechanical ventilator. Orogastric and orotracheal tube are both in place. The patient has a right IJ triple-lumen catheter in place. Head exam was generally normal. There was no scleral icterus or corneal arcus. Mucous membranes were moist. Neck was supple and without jugular venous distension, thyromegaly, or carotid bruits. Carotids were easily palpable bilaterally. There was no adenopathy. Lungs sounds are diminished bilaterally especially in the lung bases. No wheezes or rhonchi. Cardiac exam revealed the PMI to be normally situated and sized. The rhythm was regular and no extrasystoles were noted during several minutes of auscultation. The first and second heart sounds were normal and physiologic splitting of the second heart sound was noted. There were no murmurs, rubs, clicks, or gallops. Abdominal exam revealed normal bowel sounds. The abdomen was soft, non-tender, and without masses, organomegaly, or appreciable enlargement of the abdominal aorta.Bowel sounds are hypoactive at this point in time. No direct tenderness or rebound tenderness or guarding. No ascites.the patient has an incision in the right upper quadrant and the incision site is dry clean and intact and the patient has a MARICHUY drain in the right upper quadrant also. Bowel sounds are hypoactive. No direct tenderness. No rebound tenderness. No guarding. Scrotal edema. Extremities revealed +1 pitting edema and there is no cyanosis or clubbing at this point in time. Neurologic the patient is easily arousable off sedation. His currently well sedated with propofol.nno sedation holiday was given to him today. He remains on propofol for now. Skin the patient has a temporary dialysis catheter in his right femoral vein. - Labs CBC & Chem 7: 07/20/19 04:25 07/20/19 04:25 Labs: Abnormal Lab Results - Last 24 Hours (Table) 07/17/19 07/19/19 07/19/19 Range/Units 14:45 04:00 16:05 WBC (3.8-10.6) k/uL RBC (4.30-5.90) m/uL Hgb (13.0-17.5) gm/dL Hct (39.0-53.0) % Neutrophils # (1.3-7.7) k/uL Lymphocytes # (1.0-4.8) k/uL Basophils # (0-0.2) k/uL ABG pO2 (83-108) mmHg Sodium (137-145) mmol/L Potassium (3.5-5.1) mmol/L Carbon Dioxide (22-30) mmol/L BUN (9-20) mg/dL Creatinine (0.66-1.25) mg/dL Glucose (74-99) mg/dL POC Glucose (mg/dL) 127 H (75-99) mg/dL Calcium (8.4-10.2) mg/dL Phosphorus (2.5-4.5) mg/dL Total Bilirubin (0.2-1.3) mg/dL AST (17-59) U/L ALT (4-49) U/L Alkaline Phosphatase (38-126) U/L Total Protein (6.3-8.2) g/dL Albumin (3.5-5.0) g/dL Procalcitonin 2.70 H (0.02-0.09) ng/mL Crossmatch See Detail 07/20/19 07/20/19 07/20/19 Range/Units 00:17 04:25 04:25 WBC 26.7 H (3.8-10.6) k/uL RBC 2.73 L (4.30-5.90) m/uL Hgb 8.5 L (13.0-17.5) gm/dL Hct 25.9 L (39.0-53.0) % Neutrophils # 24.1 H (1.3-7.7) k/uL Lymphocytes # 0.5 L (1.0-4.8) k/uL Basophils # 0.3 H (0-0.2) k/uL ABG pO2 (83-108) mmHg Sodium 131 L (137-145) mmol/L Potassium 5.3 H (3.5-5.1) mmol/L Carbon Dioxide 20 L (22-30) mmol/L BUN 90 H (9-20) mg/dL Creatinine 6.85 H (0.66-1.25) mg/dL Glucose 112 H (74-99) mg/dL POC Glucose (mg/dL) 111 H (75-99) mg/dL Calcium 7.8 L (8.4-10.2) mg/dL Phosphorus 9.9 H* (2.5-4.5) mg/dL Total Bilirubin 1.4 H (0.2-1.3) mg/dL AST 62 H (17-59) U/L ALT 64 H (4-49) U/L Alkaline Phosphatase 197 H (38-126) U/L Total Protein 4.2 L (6.3-8.2) g/dL Albumin 2.4 L (3.5-5.0) g/dL Procalcitonin (0.02-0.09) ng/mL Crossmatch 07/20/19 07/20/19 Range/Units 05:19 11:23 WBC (3.8-10.6) k/uL RBC (4.30-5.90) m/uL Hgb (13.0-17.5) gm/dL Hct (39.0-53.0) % Neutrophils # (1.3-7.7) k/uL Lymphocytes # (1.0-4.8) k/uL Basophils # (0-0.2) k/uL ABG pO2 82 L (83-108) mmHg Sodium (137-145) mmol/L Potassium (3.5-5.1) mmol/L Carbon Dioxide (22-30) mmol/L BUN (9-20) mg/dL Creatinine (0.66-1.25) mg/dL Glucose (74-99) mg/dL POC Glucose (mg/dL) 107 H (75-99) mg/dL Calcium (8.4-10.2) mg/dL Phosphorus (2.5-4.5) mg/dL Total Bilirubin (0.2-1.3) mg/dL AST (17-59) U/L ALT (4-49) U/L Alkaline Phosphatase (38-126) U/L Total Protein (6.3-8.2) g/dL Albumin (3.5-5.0) g/dL Procalcitonin (0.02-0.09) ng/mL Crossmatch Assessment and Plan Plan: 1 Gallstone pancreatitis, improving. The patient also has an acute cholecystitis with cholelithiasis. The common bile duct was within normal limits. ERCPs and currently the patient is post open cholecystectomy and the patient is postop day #3. Currently remains on a combination of IV cefepime and Flagyl. 2 severe pancreatitis, improving, amylase and lipase is improved. Currently the patient is off TPN and he'll be transitioned to enteral feeding for nutritional support. He did receive enteral feeding yesterday at the rate of 20 mL an hour which she was able to tolerate without any major difficulties. 3 acute hypoxic respiratory failure with development of pulmonary edema and pleural effusions, underlying ARDS cannot be completely excluded in the setting of an acute pancreatitis, acid base status and oxygenation is improved compared to yesterday. Currently is on a PEEP of and FiO2 of 50%. Chest x-ray showing bilateral pleural effusionsin the volume status has improved compared to yesterday 4 acute kidney injury currently on hemodialysis, difficult fluid overload. The patient received an ultrafiltration of 4 L yesterday and the plan for today is to replace his dialysis catheter with a temporary dialysis catheter in his neck area and send the tip from the other catheter to cultures. Blood cultures of been sent. 5 fever, leukocytosis andhypotension, on pressorst a lower dose. Rule out de veloping infection/sepsis. Blood cultures of been sent. We'll add vancomycin. 6 alcoholism 7 smoker 8 hypertension history of 9 bilateral hearing loss 10 hyperphosphatemia, improving 11 leukocytosis, stable 12 TPN for nutritional support 13 open cholecystectomy, postop day #2 14 thrombocytopenia, platelet counts improving Plan Vent support, no vision changes IV fluids to KVO enteral feeding for nutritional support Flagyl and cefepime as empiric antibiotic coverage months added dose of vancomycin pending cultures as we are monitoring the fever pattern and white cell count. Removed a temper dialysis catheter in the right femoral veinand send it for cultures. propofol for sedation and fentanyl was also added for sedation Dialysis daily and consider SLED procedures to improve his fluid balance. This will be given to him again today after dialysis catheter insertion monitor the MARICHUY drain output and continue the same antibiotic coverage Pro-calcitonin level is mildly elevated Case was discussed with the family. Condition was explained. We'll continue to follow. Condition is critical. Evaluation was done and more than 30 minutes. Time with Patient: Greater than 30
[2019-07-20] MEDS ORDERED: VANCOMYCIN IV PER PHARMACY 1 EACH MISC MISCELLANE PRN (13:33)
[2019-07-20] MEDS: CALCIUM ACETATE 667 MG TAB PO SCH ×2 (13:51→19:05)
[2019-07-20] MEDS ORDERED: VANCOMYCIN 2,500 MG in SODIUM CHLORIDE 0.9% 500 ML 500 ML IVPB ONE (14:00)
--- NOTE | 2019-07-20 14:12 | P.PN ---
Subjective Progress Note Date: 07/19/19 CHIEF COMPLAINT: Abdominal pain HISTORY OF PRESENT ILLNESS: patient is status post open cholecystectomy. Postop day #2. Patient examined in the intensive care unit with Dr. Rosales. Patient remains on mechanical ventilation. Nursing reports 200 mL of drainage from OG tube overnight. MARICHUY with 60cc overnight and 40cc so far this morning. WBC 17.4 PHYSICAL EXAM: VITAL SIGNS: Reviewed. GENERAL: Well-developed in no acute distress-sedated on mechanical ventilation. HEENT: No sclera icterus. Extraocular movements grossly intact. Moist buccal mucosa. Head is atraumatic, normocephalic. ABDOMEN: Soft. Nondistended. Dressing CDI. MARICHUY with dark serous drainage. OG tube with dark bloody drainage. NEUROLOGIC: Sedated on mechanical ventilation ASSESSMENT: 1. Abdominal pain 2. Cholelithiasis, Possible choledocholithiasis 3. Pancreatitis 4. Hyperbilirubinemia 5. Transaminitis PLAN: Continue ventilator management per Dr. Rowland Continue to monitor labs Continue to monitor MARICHUY drain output and NG tube output Nurse practitioner note has been reviewed by physician. Signing provider agrees with the documented findings, assessment, and plan of care. Objective - Vital Signs Vital signs: Vital Signs Temp 101.3 F H 07/19/19 08:00 Pulse 95 07/19/19 12:03 Resp 30 H 07/19/19 11:15 BP 116/69 07/19/19 11:00 Pulse Ox 100 07/19/19 11:15 Intake & Output 07/18/19 07/19/19 07/19/19 18:59 06:59 18:59 Intake Total 6505.415 5056.152 518.434 Output Total 2915 272 34 Balance -4542.003 5279.152 484.434 Weight 147.8 kg 147.8 kg Intake: IV 1215 1389 418 0.9 pressure bags 78 66 18 Albumin Human 25% 50 ml 50 In Empty Bag 1 bag @ 50 mls/hr IVPB Q1H [facility] Rx#: [id number] Albumin Human 25% 50 ml 50 In Empty Bag 1 bag @ 50 mls/hr IVPB Q1H [facility] Rx#: [id number] Cefepime 1 gm In Sodium 50 Chloride 0.9% 50 ml @ 100 mls/hr IVPB Q24H [facility] Rx# :[id number] Mvi, Adult No.4 with Vit 497 770 210 K 10 ml Trace (Conc-1Ml/ Dose) 1 ml Sodium Acetate 60 meq Calcium Gluconate 1 gm In Amino Acid 5%- D15w 1,000 ml @ 70 mls/hr IV .BY DURATION [facility] Rx#: [id number] Sodium Chloride 0.9% 1, 440 303 90 000 ml @ 30 mls/hr IV . Q24H [facility] Rx#:[id number] metroNIDAZOLE-NS PMX 500 100 200 100 mg In Saline 1 100ml.bag @ 100 mls/hr IVPB Q8HR [facility] Rx#:[id number] Intake, IV Titration 630.417 649.152 100.434 Amount Mvi, Adult No.4 with Vit 70 K 10 ml Trace (Conc-1Ml/ Dose) 1 ml Sodium Acetate 60 meq Calcium Gluconate 1 gm In Amino Acid 5%- D15w 1,000 ml @ 70 mls/hr IV .BY DURATION [facility] Rx#: [id number] Norepinephrine 32 mg In 102.748 13.444 0.434 Sodium Chloride 0.9% 218 ml @ 0.05 MCG/KG/MIN 3. 253 mls/hr IV .Q24H [facility] Rx#:[id number] Propofol 1,000 mg In 457.669 556.286 100 Empty Bag 1 bag @ Titrate IV .Q0M [facility] Rx#: [id number] fentaNYL (PF) 1,000 mcg 79.422 In Sodium Chloride 0.9% 80 ml @ 0.71 MCG/KG/HR 10 .139 mls/hr IV .Q9H52M [facility] Rx#:[id number] Oral 0 Output: Gastric Drainage 700 Drainage 45 60 Right Abdomen 45 60 Urine 170 212 34 Hemodialysis 1999 Other: Voiding Method Indwelling Catheter Indwelling Catheter Indwelling Catheter # Voids 2 ABP, PAP, CO, CI - Last Documented Arterial Blood Pressure 121/54 - Labs CBC & Chem 7: 07/19/19 04:00 07/19/19 04:00 Labs: Abnormal Lab Results - Last 24 Hours (Table) 07/17/19 07/18/19 07/18/19 Range/Units 14:45 13:20 13:30 WBC 18.9 H (3.8-10.6) k/uL RBC 2.64 L (4.30-5.90) m/uL Hgb 8.3 L (13.0-17.5) gm/dL Hct 25.7 L (39.0-53.0) % Plt Count 73 L (150-450) k/uL Neutrophils # (Manual) (1.3-7.7) k/uL Lymphocytes # (Manual) (1.0-4.8) k/uL Metamyelocytes # (Man) (0) k/uL Sodium (137-145) mmol/L Potassium 5.4 H (3.5-5.1) mmol/L Carbon Dioxide (22-30) mmol/L BUN (9-20) mg/dL Creatinine (0.66-1.25) mg/dL Glucose (74-99) mg/dL POC Glucose (mg/dL) (75-99) mg/dL Calcium (8.4-10.2) mg/dL Phosphorus (2.5-4.5) mg/dL Delta Bilirubin (0.0-0.2) mg/dL AST (17-59) U/L ALT (4-49) U/L Total Protein (6.3-8.2) g/dL Albumin (3.5-5.0) g/dL Crossmatch See Detail 07/18/19 07/18/19 07/18/19 Range/Units 13:56 17:56 23:55 WBC (3.8-10.6) k/uL RBC (4.30-5.90) m/uL Hgb (13.0-17.5) gm/dL Hct (39.0-53.0) % Plt Count (150-450) k/uL Neutrophils # (Manual) (1.3-7.7) k/uL Lymphocytes # (Manual) (1.0-4.8) k/uL Metamyelocytes # (Man) (0) k/uL Sodium (137-145) mmol/L Potassium (3.5-5.1) mmol/L Carbon Dioxide (22-30) mmol/L BUN (9-20) mg/dL Creatinine (0.66-1.25) mg/dL Glucose (74-99) mg/dL POC Glucose (mg/dL) 212 H 154 H 179 H (75-99) mg/dL Calcium (8.4-10.2) mg/dL Phosphorus (2.5-4.5) mg/dL Delta Bilirubin (0.0-0.2) mg/dL AST (17-59) U/L ALT (4-49) U/L Total Protein (6.3-8.2) g/dL Albumin (3.5-5.0) g/dL Crossmatch 07/19/19 07/19/19 07/19/19 Range/Units 04:00 04:00 08:18 WBC 17.4 H (3.8-10.6) k/uL RBC 2.39 L (4.30-5.90) m/uL Hgb 7.7 L (13.0-17.5) gm/dL Hct 23.0 L (39.0-53.0) % Plt Count 120 L D (150-450) k/uL Neutrophils # (Manual) 16.00 H (1.3-7.7) k/uL Lymphocytes # (Manual) 0.35 L (1.0-4.8) k/uL Metamyelocytes # (Man) 0.17 H (0) k/uL Sodium 134 L (137-145) mmol/L Potassium 5.4 H (3.5-5.1) mmol/L Carbon Dioxide 21 L (22-30) mmol/L BUN 100 H (9-20) mg/dL Creatinine 6.60 H (0.66-1.25) mg/dL Glucose 149 H (74-99) mg/dL POC Glucose (mg/dL) 154 H (75-99) mg/dL Calcium 7.5 L (8.4-10.2) mg/dL Phosphorus 8.6 H (2.5-4.5) mg/dL Delta Bilirubin 1.0 H (0.0-0.2) mg/dL AST 86 H (17-59) U/L ALT 79 H (4-49) U/L Total Protein 3.9 L (6.3-8.2) g/dL Albumin 2.3 L (3.5-5.0) g/dL Crossmatch 07/19/19 Range/Units 11:34 WBC (3.8-10.6) k/uL RBC (4.30-5.90) m/uL Hgb (13.0-17.5) gm/dL Hct (39.0-53.0) % Plt Count (150-450) k/uL Neutrophils # (Manual) (1.3-7.7) k/uL Lymphocytes # (Manual) (1.0-4.8) k/uL Metamyelocytes # (Man) (0) k/uL Sodium (137-145) mmol/L Potassium (3.5-5.1) mmol/L Carbon Dioxide (22-30) mmol/L BUN (9-20) mg/dL Creatinine (0.66-1.25) mg/dL Glucose (74-99) mg/dL POC Glucose (mg/dL) 129 H (75-99) mg/dL Calcium (8.4-10.2) mg/dL Phosphorus (2.5-4.5) mg/dL Delta Bilirubin (0.0-0.2) mg/dL AST (17-59) U/L ALT (4-49) U/L Total Protein (6.3-8.2) g/dL Albumin (3.5-5.0) g/dL Crossmatch
--- NOTE | 2019-07-20 14:17 | P.PN ---
Subjective CHIEF COMPLAINT: Abdominal pain HISTORY OF PRESENT ILLNESS: Patient is status post open cholecystectomy. Postop day #3. Patient examined in the intensive care unit with Dr. Rosales. Patient remains on mechanical ventilation. TPN has been discontinued. He is currently receiving tube feeding. WBC 26.7. PHYSICAL EXAM: VITAL SIGNS: Reviewed. GENERAL: Well-developed in no acute distress-sedated on mechanical ventilation. HEENT: No sclera icterus. Extraocular movements grossly intact. Moist buccal mucosa. Head is atraumatic, normocephalic. ABDOMEN: Soft. Nondistended. Dressing CDI. MARICHUY with serosanguineous drainage. OG tube with dark bloody drainage. NEUROLOGIC: Sedated on mechanical ventilation ASSESSMENT: 1. Abdominal pain 2. Cholelithiasis, Possible choledocholithiasis 3. Pancreatitis 4. Hyperbilirubinemia 5. Transaminitisg PLAN: Continue ventilator management per Dr. Rowland Continue to monitor labs Continue to monitor MARICHUY drain output Monitor WBC. Continue antibiotics Nurse practitioner note has been reviewed by physician. Signing provider agrees with the documented findings, assessment, and plan of care. Objective - Vital Signs Vital signs: Vital Signs Temp 99.4 F 07/20/19 10:23 Pulse 91 07/20/19 13:33 Resp 28 H 07/20/19 11:30 BP 143/75 07/20/19 11:00 Pulse Ox 100 07/20/19 11:30 Intake & Output 07/19/19 07/20/19 07/20/19 18:59 06:59 18:59 Intake Total 4896.782 2267.092 456.150 Output Total 4154 340 595 Balance -2762.450 1127.092 -138.850 Weight 147.8 kg 147.7 kg Intake: IV 897 622 240 0.9 pressure bags 72 72 30 Cefepime 1 gm In Sodium 100 Chloride 0.9% 50 ml @ 100 mls/hr IVPB Q24H [facility] Rx# :[id number] Mvi, Adult No.4 with Vit 385 K 10 ml Trace (Conc-1Ml/ Dose) 1 ml Sodium Acetate 60 meq Calcium Gluconate 1 gm In Amino Acid 5%- D15w 1,000 ml @ 70 mls/hr IV .BY DURATION [facility] Rx#: [id number] Sodium Chloride 0.9% 1, 240 350 110 000 ml @ 30 mls/hr IV . Q24H [facility] Rx#:[id number] metroNIDAZOLE-NS PMX 500 200 100 100 mg In Saline 1 100ml.bag @ 100 mls/hr IVPB Q8HR [facility] Rx#:[id number] Intake, IV Titration 424.550 615.092 196.150 Amount Norepinephrine 32 mg In 33.813 42.560 3.036 Sodium Chloride 0.9% 218 ml @ 0.05 MCG/KG/MIN 3. 253 mls/hr IV .Q24H [facility] Rx#:[id number] Propofol 1,000 mg In 294.248 400 193.114 Empty Bag 1 bag @ Titrate IV .Q0M [facility] Rx#: [id number] fentaNYL (PF) 1,000 mcg 96.489 172.532 In Sodium Chloride 0.9% 80 ml @ 0.71 MCG/KG/HR 10 .139 mls/hr IV .Q9H52M [facility] Rx#:[id number] Tube Feeding 40 170 20 Other 30 60 Output: Drainage 40 90 Right Abdomen 40 90 Urine 114 250 95 Hemodialysis 4000 500 Other: Voiding Method Indwelling Catheter Indwelling Catheter ABP, PAP, CO, CI - Last Documented Arterial Blood Pressure 134/66 - Labs CBC & Chem 7: 07/20/19 04:25 07/20/19 04:25 Labs: Abnormal Lab Results - Last 24 Hours (Table) 07/17/19 07/19/19 07/19/19 Range/Units 14:45 04:00 16:05 WBC (3.8-10.6) k/uL RBC (4.30-5.90) m/uL Hgb (13.0-17.5) gm/dL Hct (39.0-53.0) % Neutrophils # (1.3-7.7) k/uL Lymphocytes # (1.0-4.8) k/uL Basophils # (0-0.2) k/uL ABG pO2 (83-108) mmHg Sodium (137-145) mmol/L Potassium (3.5-5.1) mmol/L Carbon Dioxide (22-30) mmol/L BUN (9-20) mg/dL Creatinine (0.66-1.25) mg/dL Glucose (74-99) mg/dL POC Glucose (mg/dL) 127 H (75-99) mg/dL Calcium (8.4-10.2) mg/dL Phosphorus (2.5-4.5) mg/dL Total Bilirubin (0.2-1.3) mg/dL AST (17-59) U/L ALT (4-49) U/L Alkaline Phosphatase (38-126) U/L Total Protein (6.3-8.2) g/dL Albumin (3.5-5.0) g/dL Procalcitonin 2.70 H (0.02-0.09) ng/mL Crossmatch See Detail 07/20/19 07/20/19 07/20/19 Range/Units 00:17 04:25 04:25 WBC 26.7 H (3.8-10.6) k/uL RBC 2.73 L (4.30-5.90) m/uL Hgb 8.5 L (13.0-17.5) gm/dL Hct 25.9 L (39.0-53.0) % Neutrophils # 24.1 H (1.3-7.7) k/uL Lymphocytes # 0.5 L (1.0-4.8) k/uL Basophils # 0.3 H (0-0.2) k/uL ABG pO2 (83-108) mmHg Sodium 131 L (137-145) mmol/L Potassium 5.3 H (3.5-5.1) mmol/L Carbon Dioxide 20 L (22-30) mmol/L BUN 90 H (9-20) mg/dL Creatinine 6.85 H (0.66-1.25) mg/dL Glucose 112 H (74-99) mg/dL POC Glucose (mg/dL) 111 H (75-99) mg/dL Calcium 7.8 L (8.4-10.2) mg/dL Phosphorus 9.9 H* (2.5-4.5) mg/dL Total Bilirubin 1.4 H (0.2-1.3) mg/dL AST 62 H (17-59) U/L ALT 64 H (4-49) U/L Alkaline Phosphatase 197 H (38-126) U/L Total Protein 4.2 L (6.3-8.2) g/dL Albumin 2.4 L (3.5-5.0) g/dL Procalcitonin (0.02-0.09) ng/mL Crossmatch 07/20/19 07/20/19 Range/Units 05:19 11:23 WBC (3.8-10.6) k/uL RBC (4.30-5.90) m/uL Hgb (13.0-17.5) gm/dL Hct (39.0-53.0) % Neutrophils # (1.3-7.7) k/uL Lymphocytes # (1.0-4.8) k/uL Basophils # (0-0.2) k/uL ABG pO2 82 L (83-108) mmHg Sodium (137-145) mmol/L Potassium (3.5-5.1) mmol/L Carbon Dioxide (22-30) mmol/L BUN (9-20) mg/dL Creatinine (0.66-1.25) mg/dL Glucose (74-99) mg/dL POC Glucose (mg/dL) 107 H (75-99) mg/dL Calcium (8.4-10.2) mg/dL Phosphorus (2.5-4.5) mg/dL Total Bilirubin (0.2-1.3) mg/dL AST (17-59) U/L ALT (4-49) U/L Alkaline Phosphatase (38-126) U/L Total Protein (6.3-8.2) g/dL Albumin (3.5-5.0) g/dL Procalcitonin (0.02-0.09) ng/mL Crossmatch Microbiology - Last 24 Hours (Table) 07/19/19 10:20 Blood Culture - Preliminary Blood No Growth after 24 hours
--- NOTE | 2019-07-20 15:58 | P.OP ---
Date of Procedure: 07/20/19 Description of Procedure: Preoperative diagnosis: [acute renal failure requiring dialysis, nonfunctioning femoral temporal catheter] Postoperative diagnosis: Same Procedure: [over the wire guidewire exchange right femoral temporary dialysis catheter, size changed to 20 cm catheter] Surgeon: Megha Chaves D.O. EBL: [less than 10 mL] IV fluids: [see documentation] Urine output: [not measured] Drains: [none] Complications: [none immediately apparent] Condition: [remains critical intubated in the ICU] Operative indication and findings: [the patient is a 54-year-old male with significant pancreatitis and worsening renal function. He previously had a right temporary dialysis catheter placed. It has been functioning for the past few days although is not functional today. Risks and benefits of guidewire exchange were discussed with the family.] Procedure in detail: [patient was placed in supine position. The right groin was prepped and draped in usual sterile fashion. A procedure timeout was performed, all parties are in agreement. The guidewire was placed through the port. The dialysis catheter was removed. A previously flushed 16 centimetercatheter was then replaced over the guidewire. Attempts were performed at aspiration and flushing, I did not aspirate very well or freely. A guidewire was in place again a catheter was removed and a 20 cm catheter was placed. It aspirated and flushed well.it was sutured in place. It was flushed with saline a dressing was placed. The patient tolerated the procedure well.]
[2019-07-20 18:04] LABS: Glucose,Whole Blood 128 mg/dL (75-99)
[2019-07-20 20:06] LABS: Glucose,Whole Blood 135 mg/dL (75-99)
[2019-07-21 00:12] LABS: Glucose,Whole Blood 114 mg/dL (75-99)
[2019-07-21] MEDS: metroNIDAZOLE-NS PMX 500 MG in SALINE 1 100ML.BAG IVPB SCH ×3 (00:36→15:55)
[2019-07-21] MEDS: INSULIN ASPART (NovoLOG) 100 UNIT/ML VIAL SQ SCH ×4 (00:36→19:21)
[2019-07-21] MEDS: HEPARIN SODIUM,PORCINE 5,000 UNIT/ML 1 ML VIAL SQ SCH ×3 (00:36→15:55)
[2019-07-21] MEDS: PROPOFOL 1,000 MG in EMPTY BAG 1 BAG IV SCH ×5 (00:37→09:59)
[2019-07-21] MEDS: NOREPINEPHRINE 32 MG in SODIUM CHLORIDE 0.9% 218 ML IV SCH ×2 (00:53→15:04)
[2019-07-21] MEDS: fentaNYL (PF) 1,000 MCG in SODIUM CHLORIDE 0.9% 80 ML IV SCH (00:54)
[2019-07-21] MEDS: IPRATROPIUM-ALBUTEROL 3 ML NEB INHALATION SCH ×5 (03:37→20:35)
[2019-07-21] MEDS: ACETAMINOPHEN TAB 325 MG TAB PO PRN (04:04)
[2019-07-21] MEDS: CEFEPIME 1 GM in SODIUM CHLORIDE 0.9% 50 ML IVPB SCH (04:04)
[2019-07-21 05:06] LABS: ABG Base Excess -4.7 mmol/L; ABG HCO3 20 mmol/L (21-25); ABG Oxygen Saturation 97.5 % (94-97); ABG PCO2 34 mmHg (35-45); ABG PH 7.39 (7.35-7.45); ABG PO2 101 mmHg (83-108); ABG TCO2 21 mmol/L (19-24); Allen Test Performed? Yes
[2019-07-21 05:23] LABS: Albumin 2.4 g/dL (3.5-5.0); Calcium 7.6 mg/dL (8.4-10.2); Potassium 5.4 mmol/L (3.5-5.1); Total Protein 4.4 g/dL (6.3-8.2)
[2019-07-21 05:28] LABS: Vancomycin,Random 17.7 ug/mL
[2019-07-21 05:35] LABS: HGB 7.8 gm/dL (13.0-17.5); MCH 31.9 pg (25.0-35.0); MCHC 33.9 g/dL (31.0-37.0); Mean Platelet Volume 9.4; Platelet Count 301 k/uL (150-450); RBC 2.45 m/uL (4.30-5.90); RDW 12.9 % (11.5-15.5); WBC 31.8 k/uL (3.8-10.6)
[2019-07-21 05:53] LABS: Band Neutrophils % 3 %; Eosinophils # (M) 0.32 k/uL (0-0.7); Metamyelocytes # (M) 0.32 k/uL (0); Metamyelocytes % 1 %; Monocytes # (M) 0.64 k/uL (0-1.0); Neutrophils % (M) 93 %; Nucleated Red Blood Cells 0 /100 WBC (0-0); Total Cells Counted 100
[2019-07-21 06:04] LABS: Glucose,Whole Blood 135 mg/dL (75-99)
[2019-07-21] MEDS: CALCIUM ACETATE 667 MG TAB PO SCH ×3 (07:12→21:10)
--- NOTE | 2019-07-21 07:44 | XR ---
EXAMINATION TYPE: XR chest 1V DATE OF EXAM: 07/21/2019 COMPARISON: Prior chest x-ray 07/20/2019 HISTORY: Intubated TECHNIQUE: Single frontal view of the chest is obtained. FINDINGS: Endotracheal tube, NG tube, left jugular central venous catheter are overlying appropriate positions. No evident pneumothorax. There is persistent blunting of left costophrenic angle, bibasil ar increased density noted. Heart is enlarged although patient is rotated. Central vascularity mildly prominent. There are overlying cardiac leads. IMPRESSION: Findings are similar to prior exam, there may be some slight improvement in aeration.
--- NOTE | 2019-07-21 09:55 | P.PN ---
Subjective Progress Note Date: 07/21/19 Patient seen and examined today. Dialysis catheter functioned well yesterday. Still with leukocytosis slightly worsened today. At this time no conteh to place tunneled dialysis catheter given overall clinical picture and with worsening leukocytosis. Maintain femoral catheter at this time. Objective - Vital Signs Vital signs: Vital Signs Temp 98.6 F 07/21/19 08:00 Pulse 105 H 07/21/19 09:00 Resp 32 H 07/21/19 09:00 BP 118/59 07/21/19 09:00 Pulse Ox 99 07/21/19 09:00 Intake & Output 07/20/19 07/21/19 07/21/19 18:59 06:59 18:59 Intake Total 4661.217 5068.723 221.408 Output Total 820 3290 55 Balance 662.973 -2043.277 166.408 Intake: IV 942 287 29 0.9 pressure bags 72 72 9 Sodium Chloride 0.9% 1, 170 115 20 000 ml @ 30 mls/hr IV . Q24H [facility] Rx#:[id number] Vancomycin 2,500 mg In 500 Sodium Chloride 0.9% 500 ml 500 ml @ 167 mls/hr IVPB ONCE ONE Rx#: [id number] metroNIDAZOLE-NS PMX 500 200 100 mg In Saline 1 100ml.bag @ 100 mls/hr IVPB Q8HR [facility] Rx#:[id number] Intake, IV Titration 470.973 539.723 102.408 Amount Norepinephrine 32 mg In 3.036 80.716 2.408 Sodium Chloride 0.9% 218 ml @ 0.05 MCG/KG/MIN 3. 253 mls/hr IV .Q24H [facility] Rx#:[id number] Propofol 1,000 mg In 371.448 370.291 100 Empty Bag 1 bag @ Titrate IV .Q0M [facility] Rx#: [id number] fentaNYL (PF) 1,000 mcg 96.489 88.716 In Sodium Chloride 0.9% 80 ml @ 0.71 MCG/KG/HR 10 .139 mls/hr IV .Q9H52M [facility] Rx#:[id number] Tube Feeding 70 420 60 Other 30 Output: Drainage 90 160 Right Abdomen 90 160 Urine 230 130 55 Hemodialysis 500 3000 Other: Voiding Method Indwelling Catheter Indwelling Catheter ABP, PAP, CO, CI - Last Documented Arterial Blood Pressure 94/54 - Labs CBC & Chem 7: 07/21/19 05:00 07/21/19 05:00 Labs: Abnormal Lab Results - Last 24 Hours (Table) 07/20/19 07/20/19 07/20/19 Range/Units 04:25 11:23 18:03 WBC (3.8-10.6) k/uL RBC (4.30-5.90) m/uL Hgb (13.0-17.5) gm/dL Hct (39.0-53.0) % Neutrophils # (Manual) (1.3-7.7) k/uL Metamyelocytes # (Man) (0) k/uL ABG pCO2 (35-45) mmHg ABG HCO3 (21-25) mmol/L ABG O2 Saturation (94-97) % Sodium 131 L (137-145) mmol/L Potassium 5.3 H (3.5-5.1) mmol/L Carbon Dioxide 20 L (22-30) mmol/L BUN 90 H (9-20) mg/dL Creatinine 6.85 H (0.66-1.25) mg/dL Glucose 112 H (74-99) mg/dL POC Glucose (mg/dL) 107 H 128 H (75-99) mg/dL Calcium 7.8 L (8.4-10.2) mg/dL Phosphorus 9.9 H* (2.5-4.5) mg/dL Total Bilirubin 1.4 H (0.2-1.3) mg/dL AST 62 H (17-59) U/L ALT 64 H (4-49) U/L Alkaline Phosphatase 197 H (38-126) U/L Total Protein 4.2 L (6.3-8.2) g/dL Albumin 2.4 L (3.5-5.0) g/dL 07/20/19 07/21/19 07/21/19 Range/Units 20:04 00:11 04:53 WBC (3.8-10.6) k/uL RBC (4.30-5.90) m/uL Hgb (13.0-17.5) gm/dL Hct (39.0-53.0) % Neutrophils # (Manual) (1.3-7.7) k/uL Metamyelocytes # (Man) (0) k/uL ABG pCO2 34 L (35-45) mmHg ABG HCO3 20 L (21-25) mmol/L ABG O2 Saturation 97.5 H (94-97) % Sodium (137-145) mmol/L Potassium (3.5-5.1) mmol/L Carbon Dioxide (22-30) mmol/L BUN (9-20) mg/dL Creatinine (0.66-1.25) mg/dL Glucose (74-99) mg/dL POC Glucose (mg/dL) 135 H 114 H (75-99) mg/dL Calcium (8.4-10.2) mg/dL Phosphorus (2.5-4.5) mg/dL Total Bilirubin (0.2-1.3) mg/dL AST (17-59) U/L ALT (4-49) U/L Alkaline Phosphatase (38-126) U/L Total Protein (6.3-8.2) g/dL Albumin (3.5-5.0) g/dL 07/21/19 07/21/19 07/21/19 Range/Units 05:00 05:00 06:03 WBC 31.8 H (3.8-10.6) k/uL RBC 2.45 L (4.30-5.90) m/uL Hgb 7.8 L (13.0-17.5) gm/dL Hct 23.0 L (39.0-53.0) % Neutrophils # (Manual) 30.50 H (1.3-7.7) k/uL Metamyelocytes # (Man) 0.32 H (0) k/uL ABG pCO2 (35-45) mmHg ABG HCO3 (21-25) mmol/L ABG O2 Saturation (94-97) % Sodium 131 L (137-145) mmol/L Potassium 5.4 H (3.5-5.1) mmol/L Carbon Dioxide 18 L (22-30) mmol/L BUN 88 H (9-20) mg/dL Creatinine 6.28 H (0.66-1.25) mg/dL Glucose 130 H (74-99) mg/dL POC Glucose (mg/dL) 135 H (75-99) mg/dL Calcium 7.6 L (8.4-10.2) mg/dL Phosphorus (2.5-4.5) mg/dL Total Bilirubin (0.2-1.3) mg/dL AST (17-59) U/L ALT (4-49) U/L Alkaline Phosphatase 210 H (38-126) U/L Total Protein 4.4 L (6.3-8.2) g/dL Albumin 2.4 L (3.5-5.0) g/dL Microbiology - Last 24 Hours (Table) 07/19/19 10:20 Blood Culture - Preliminary Blood No Growth after 24 hours Assessment and Plan Assessment: Acute renal failure, requiring dialysis Severe pancreatitis Status post cholecystectomy Leukocytosis Plan: Continue daily evaluation for improvement and need/timing for tunneled dialysis catheter. Maintain temperature dialysis catheter at this time.
[2019-07-21] MEDS: CHLORHEXIDINE GLUCONATE 15 ML CUP MUCOUS MEM SCH (10:01)
[2019-07-21] MEDS: PANTOPRAZOLE 40 MG/10 ML VIAL IV SCH (10:01)
--- NOTE | 2019-07-21 10:18 | P.PN ---
Subjective Progress Note Date: 07/21/19 On 07/21/2019 and seeing the patient for a follow-up. Postop day #4. He is post gallstone pancreatitis. Post open cholecystectomy. He has also developed an acute kidney injury and currently is dialysis dependent. Yesterday he had a change of his dialysis catheter as the latest inserted catheter clogged and was not functioning appropriately. Currently is another catheter in his left IJ. He underwent dialysis yesterday and a total of 3.5 L of fluid was removed. He looks to be less edematous on today's evaluation. He does have still edema in his lower extremities and his arms and his scrotal area. Chest x-ray shows improvement in the volume status and ET tube is in a good location. On today's evaluation he is on assist control mode at the rate of 28 and a tidal volume of 450 and FiO2 of 50% with a PEEP of 5. The blood gases showed a pH of 7.39 with a pCO2 of 34 and pO2 of 101. The patient is hemodynamically still requiring pressors at a dose of 0.07 units per KG per minute. I suspect an infectious complication knowing that the patient had a rise in the white count and is curre ntly up to 31. He was also having episodes of temperature with a T-max of 11.8 yesterday. Blood cultures were sent. The catheters were removed during the dialysis catheter new catheter was inserted in the right femoral vein. He still is a triple-lumen catheter in his left IJ. The patient was given a dose of vancomycin. He was also kept on a combination of cefepime and Flagyl. It seems that he is less febrile. Overall, he is doing better. He has an NG tube in place and he is started on enteral feeding for nutritional support is running at 30 mL an hour. No abdominal distention. He did have a bowel movement. Surgical wound site is dry clean and intact. MARICHUY drain is in place and output has been around 125 mL for yesterday. I'm in the process of getting this patient a sedation holiday. He is on a 50 mics of the prevent and 100 mics of fentanyl on an hourly basis. Urine output is minimal at this point in time. No other significant events otherwise. He is scheduled to have another dialysis session today. Objective - Vital Signs Vital signs: Vital Signs Temp 98.6 F 07/21/19 08:00 Pulse 105 H 07/21/19 09:00 Resp 32 H 07/21/19 09:00 BP 118/59 07/21/19 09:00 Pulse Ox 99 07/21/19 09:00 Intake & Output 07/20/19 07/21/19 07/21/19 18:59 06:59 18:59 Intake Total 8529.881 4142.723 321.408 Output Total 820 3290 55 Balance 662.973 -2043.277 266.408 Intake: IV 942 287 29 0.9 pressure bags 72 72 9 Sodium Chloride 0.9% 1, 170 115 20 000 ml @ 30 mls/hr IV . Q24H [facility] Rx#:[id number] Vancomycin 2,500 mg In 500 Sodium Chloride 0.9% 500 ml 500 ml @ 167 mls/hr IVPB ONCE ONE Rx#: [id number] metroNIDAZOLE-NS PMX 500 200 100 mg In Saline 1 100ml.bag @ 100 mls/hr IVPB Q8HR [facility] Rx#:[id number] Intake, IV Titration 470.973 539.723 202.408 Amount Norepinephrine 32 mg In 3.036 80.716 2.408 Sodium Chloride 0.9% 218 ml @ 0.05 MCG/KG/MIN 3. 253 mls/hr IV .Q24H [facility] Rx#:[id number] Propofol 1,000 mg In 371.448 370.291 200 Empty Bag 1 bag @ Titrate IV .Q0M [facility] Rx#: [id number] fentaNYL (PF) 1,000 mcg 96.489 88.716 In Sodium Chloride 0.9% 80 ml @ 0.71 MCG/KG/HR 10 .139 mls/hr IV .Q9H52M [facility] Rx#:[id number] Tube Feeding 70 420 60 Other 30 Output: Drainage 90 160 Right Abdomen 90 160 Urine 230 130 55 Hemodialysis 500 3000 Other: Voiding Method Indwelling Catheter Indwelling Catheter ABP, PAP, CO, CI - Last Documented Arterial Blood Pressure 94/54 - Exam Gen. appearance, comfortable likely this is intubated on a mechanical ventilator. Orogastric and orotracheal tube are both in place. The patient has a right IJ hemodialysis catheter Head exam was generally normal. There was no scleral icterus or corneal arcus. Mucous membranes were moist. Neck was supple and without jugular venous distension, thyromegaly, or carotid bruits. Carotids were easily palpable bilaterally. There was no adenopathy. Lungs sounds are diminished bilaterally especially in the lung bases. No wheezes or rhonchi. Cardiac exam revealed the PMI to be normally situated and sized. The rhythm was regular and no extrasystoles were noted during several minutes of auscultation. The first and second heart sounds were normal and physiologic splitting of the second heart sound was noted. There were no murmurs, rubs, clicks, or gallops. Abdominal exam revealed normal bowel sounds. The abdomen was soft, non-tender, and without masses, organomegaly, or appreciable enlargement of the abdominal aorta.Bowel sounds are hypoactive at this point in time. No direct tenderness or rebound tenderness or guarding. No ascites.the patient has an incision in the right upper quadrant and the incision site is dry clean and intact and the patient has a MARICHUY drain in the right upper quadrant also. Bowel sounds are hypoactive. No direct tenderness. No rebound tenderness. No guarding. Scrotal edema. Extremities revealed +1 pitting edema and there is no cyanosis or clubbing at this point in time. Neurologic the patient is easily arousable off sedation. His currently well sedated with propofol.nno sedation holiday was given to him today. He remains on propofol for now. Skin the patient has a temporary dialysis catheter in his right femoral vein. - Labs CBC & Chem 7: 07/21/19 05:00 07/21/19 05:00 Labs: Abnormal Lab Results - Last 24 Hours (Table) 07/20/19 07/20/19 07/20/19 Range/Units 04:25 11:23 18:03 WBC (3.8-10.6) k/uL RBC (4.30-5.90) m/uL Hgb (13.0-17.5) gm/dL Hct (39.0-53.0) % Neutrophils # (Manual) (1.3-7.7) k/uL Metamyelocytes # (Man) (0) k/uL ABG pCO2 (35-45) mmHg ABG HCO3 (21-25) mmol/L ABG O2 Saturation (94-97) % Sodium 131 L (137-145) mmol/L Potassium 5.3 H (3.5-5.1) mmol/L Carbon Dioxide 20 L (22-30) mmol/L BUN 90 H (9-20) mg/dL Creatinine 6.85 H (0.66-1.25) mg/dL Glucose 112 H (74-99) mg/dL POC Glucose (mg/dL) 107 H 128 H (75-99) mg/dL Calcium 7.8 L (8.4-10.2) mg/dL Phosphorus 9.9 H* (2.5-4.5) mg/dL Total Bilirubin 1.4 H (0.2-1.3) mg/dL AST 62 H (17-59) U/L ALT 64 H (4-49) U/L Alkaline Phosphatase 197 H (38-126) U/L Total Protein 4.2 L (6.3-8.2) g/dL Albumin 2.4 L (3.5-5.0) g/dL 07/20/19 07/21/19 07/21/19 Range/Units 20:04 00:11 04:53 WBC (3.8-10.6) k/uL RBC (4.30-5.90) m/uL Hgb (13.0-17.5) gm/dL Hct (39.0-53.0) % Neutrophils # (Manual) (1.3-7.7) k/uL Metamyelocytes # (Man) (0) k/uL ABG pCO2 34 L (35-45) mmHg ABG HCO3 20 L (21-25) mmol/L ABG O2 Saturation 97.5 H (94-97) % Sodium (137-145) mmol/L Potassium (3.5-5.1) mmol/L Carbon Dioxide (22-30) mmol/L BUN (9-20) mg/dL Creatinine (0.66-1.25) mg/dL Glucose (74-99) mg/dL POC Glucose (mg/dL) 135 H 114 H (75-99) mg/dL Calcium (8.4-10.2) mg/dL Phosphorus (2.5-4.5) mg/dL Total Bilirubin (0.2-1.3) mg/dL AST (17-59) U/L ALT (4-49) U/L Alkaline Phosphatase (38-126) U/L Total Protein (6.3-8.2) g/dL Albumin (3.5-5.0) g/dL 07/21/19 07/21/19 07/21/19 Range/Units 05:00 05:00 06:03 WBC 31.8 H (3.8-10.6) k/uL RBC 2.45 L (4.30-5.90) m/uL Hgb 7.8 L (13.0-17.5) gm/dL Hct 23.0 L (39.0-53.0) % Neutrophils # (Manual) 30.50 H (1.3-7.7) k/uL Metamyelocytes # (Man) 0.32 H (0) k/uL ABG pCO2 (35-45) mmHg ABG HCO3 (21-25) mmol/L ABG O2 Saturation (94-97) % Sodium 131 L (137-145) mmol/L Potassium 5.4 H (3.5-5.1) mmol/L Carbon Dioxide 18 L (22-30) mmol/L BUN 88 H (9-20) mg/dL Creatinine 6.28 H (0.66-1.25) mg/dL Glucose 130 H (74-99) mg/dL POC Glucose (mg/dL) 135 H (75-99) mg/dL Calcium 7.6 L (8.4-10.2) mg/dL Phosphorus (2.5-4.5) mg/dL Total Bilirubin (0.2-1.3) mg/dL AST (17-59) U/L ALT (4-49) U/L Alkaline Phosphatase 210 H (38-126) U/L Total Protein 4.4 L (6.3-8.2) g/dL Albumin 2.4 L (3.5-5.0) g/dL Microbiology - Last 24 Hours (Table) 07/19/19 10:20 Blood Culture - Preliminary Blood No Growth after 24 hours Assessment and Plan Plan: 1 Gallstone pancreatitis, improving. The patient also has an acute cholecystitis with cholelithiasis. The common bile duct was within normal limits. ERCPs and currently the patient is post open cholecystectomy and the patient is postop day #4. Currently remains on a combination of IV cefepime and Flagyl. vancomycin was also added as the patient was having To the fever and ongoing leukocytosis suspecting underlying sepsis/infection. 2 severe pancreatitis, improving, amylase and lipase is improved. the amylase and lipase is improved and the patient is currently tolerating enteral feeding for nutritional support 3 acute hypoxic respiratory failure with development of pulmonary edema and pleural effusions, underlying ARDS cannot be completely excluded in the setting of an acute pancreatitis, . I told the patient was in significant fluid overload and he has developed bilateral pleural effusion. The follow-up chest x-rays improved. Oxygenation is also improved. 4 acute kidney injury currently on hemodialysis, The patient is undergoing daily dialysis. A new dialysis catheter was inserted in the left IJ 5 fever, leukocytosis andhypotension, on pressorst a lower dose. Rule out developing infection/sepsis. Blood cultures of been sent. We'll add vancomycin. The patient's fever defervesced. Nevertheless, the cultures are still negative and his white cell count is on the rise at 31. Hemodynamically still requiring pressors at a dose of 0.07 mcg/m of norepinephrine infusion. 6 alcoholism 7 smoker 8 hypertension history of 9 bilateral hearing loss 10 hyperphosphatemia, improving 11 leukocytosis, secondary to sepsis 12 TPN for nutritional support, discontinued and the patient was switched to enteral feeding for nutritional support 13 open cholecystectomy, postop day #4 14 thrombocytopenia, platelet counts improving Plan Vent support, no vision changes sedation holiday Assessment and status off sedation and assess his readiness to wean Daily hemodialysis Monitor fever pattern Monitor cultures Continue vancomycin cefepime and Flagyl Enteral feeding for nutritional support The patient may be encephalopathic while off sedation and this is obviously multifactorial and could be related to metabolic encephalopathy. I may consider the use of Precedex as part of our weaning process Continue monitoring the white count and the fever pattern of the cultures Continue monitoring the output from the MARICHUY drain Nephrology is on the case General surgeries on the case We'll continue to follow make further recommendations based on his progress. Condition remains critical. This evaluation was done and more than 30 minutes. Time with Patient: Greater than 30
[2019-07-21] MEDS ORDERED: VANCOMYCIN 2,250 MG in SODIUM CHLORIDE 0.9% 500 ML 500 ML IVPB ONE (12:00)
[2019-07-21] MEDS ORDERED: HEPARIN SODIUM,PORCINE 5,000 UNIT/ML 1 ML VIAL ONE ×2 (12:00)
[2019-07-21 12:10] LABS: Glucose,Whole Blood 150 mg/dL (75-99)
--- NOTE | 2019-07-21 12:38 | P.PN ---
Subjective Patient is seen in follow-up for acute kidney injury, currently hemodialysis dependent. Patient remains intubated. Urine output 10-15 mL an hour. Still quite edematous. Levophed turned off this morning. He is receiving tube feeding. Status post open cholecystectomy on July 17. Vital signs are stable. General: The patient appeared well nourished and normally developed. Intubated. HEENT: Head exam is unremarkable. Neck is without jugular venous distension. LUNGS: Lungs are clear to auscultation and percussion. Breath sounds decreased. HEART: Rate and Rhythm are regular. First and second heart sounds normal. No murmurs, rubs or gallops. ABDOMEN: Bowel sounds decreased. EXTREMITITES: 2+ edema. Scrotal edema noted. Objective - Vital Signs Vital signs: Vital Signs Temp 98.6 F 07/21/19 08:00 Pulse 112 H 07/21/19 12:04 Resp 26 H 07/21/19 11:00 BP 141/79 07/21/19 11:00 Pulse Ox 90 L 07/21/19 11:00 Intake & Output 07/20/19 07/21/19 07/21/19 18:59 06:59 18:59 Intake Total 2607.761 5375.723 633.613 Output Total 820 3290 135 Balance 662.973 -2043.277 498.613 Intake: IV 942 287 198 0.9 pressure bags 72 72 18 Sodium Chloride 0.9% 1, 170 115 80 000 ml @ 30 mls/hr IV . Q24H [facility] Rx#:[id number] Vancomycin 2,500 mg In 500 Sodium Chloride 0.9% 500 ml 500 ml @ 167 mls/hr IVPB ONCE ONE Rx#: [id number] metroNIDAZOLE-NS PMX 500 200 100 100 mg In Saline 1 100ml.bag @ 100 mls/hr IVPB Q8HR [facility] Rx#:[id number] Intake, IV Titration 470.973 539.723 310.613 Amount Norepinephrine 32 mg In 3.036 80.716 3.448 Sodium Chloride 0.9% 218 ml @ 0.05 MCG/KG/MIN 3. 253 mls/hr IV .Q24H [facility] Rx#:[id number] Propofol 1,000 mg In 371.448 370.291 211.373 Empty Bag 1 bag @ Titrate IV .Q0M [facility] Rx#: [id number] fentaNYL (PF) 1,000 mcg 96.489 88.716 95.792 In Sodium Chloride 0.9% 80 ml @ 0.71 MCG/KG/HR 10 .139 mls/hr IV .Q9H52M [facility] Rx#:[id number] Tube Feeding 70 420 95 Other 30 Output: Drainage 90 160 30 Right Abdomen 90 160 30 Urine 230 130 105 Hemodialysis 500 3000 Other: Voiding Method Indwelling Catheter Indwelling Catheter ABP, PAP, CO, CI - Last Documented Arterial Blood Pressure 128/65 - Labs CBC & Chem 7: 07/21/19 05:00 07/21/19 05:00 Labs: Abnormal Lab Results - Last 24 Hours (Table) 07/20/19 07/20/19 07/21/19 Range/Units 18:03 20:04 00:11 WBC (3.8-10.6) k/uL RBC (4.30-5.90) m/uL Hgb (13.0-17.5) gm/dL Hct (39.0-53.0) % Neutrophils # (Manual) (1.3-7.7) k/uL Metamyelocytes # (Man) (0) k/uL ABG pCO2 (35-45) mmHg ABG HCO3 (21-25) mmol/L ABG O2 Saturation (94-97) % Sodium (137-145) mmol/L Potassium (3.5-5.1) mmol/L Carbon Dioxide (22-30) mmol/L BUN (9-20) mg/dL Creatinine (0.66-1.25) mg/dL Glucose (74-99) mg/dL POC Glucose (mg/dL) 128 H 135 H 114 H (75-99) mg/dL Calcium (8.4-10.2) mg/dL Alkaline Phosphatase (38-126) U/L Total Protein (6.3-8.2) g/dL Albumin (3.5-5.0) g/dL 07/21/19 07/21/19 07/21/19 Range/Units 04:53 05:00 05:00 WBC 31.8 H (3.8-10.6) k/uL RBC 2.45 L (4.30-5.90) m/uL Hgb 7.8 L (13.0-17.5) gm/dL Hct 23.0 L (39.0-53.0) % Neutrophils # (Manual) 30.50 H (1.3-7.7) k/uL Metamyelocytes # (Man) 0.32 H (0) k/uL ABG pCO2 34 L (35-45) mmHg ABG HCO3 20 L (21-25) mmol/L ABG O2 Saturation 97.5 H (94-97) % Sodium 131 L (137-145) mmol/L Potassium 5.4 H (3.5-5.1) mmol/L Carbon Dioxide 18 L (22-30) mmol/L BUN 88 H (9-20) mg/dL Creatinine 6.28 H (0.66-1.25) mg/dL Glucose 130 H (74-99) mg/dL POC Glucose (mg/dL) (75-99) mg/dL Calcium 7.6 L (8.4-10.2) mg/dL Alkaline Phosphatase 210 H (38-126) U/L Total Protein 4.4 L (6.3-8.2) g/dL Albumin 2.4 L (3.5-5.0) g/dL 07/21/19 07/21/19 Range/Units 06:03 12:08 WBC (3.8-10.6) k/uL RBC (4.30-5.90) m/uL Hgb (13.0-17.5) gm/dL Hct (39.0-53.0) % Neutrophils # (Manual) (1.3-7.7) k/uL Metamyelocytes # (Man) (0) k/uL ABG pCO2 (35-45) mmHg ABG HCO3 (21-25) mmol/L ABG O2 Saturation (94-97) % Sodium (137-145) mmol/L Potassium (3.5-5.1) mmol/L Carbon Dioxide (22-30) mmol/L BUN (9-20) mg/dL Creatinine (0.66-1.25) mg/dL Glucose (74-99) mg/dL POC Glucose (mg/dL) 135 H 150 H (75-99) mg/dL Calcium (8.4-10.2) mg/dL Alkaline Phosphatase (38-126) U/L Total Protein (6.3-8.2) g/dL Albumin (3.5-5.0) g/dL Microbiology - Last 24 Hours (Table) 07/19/19 10:20 Blood Culture - Preliminary Blood No Growth after 24 hours Assessment and Plan Plan: Assessment: 1. Acute kidney injury secondary to ATN secondary to septic shock, currently hemodialysis dependent. Started on hemodialysis July 15. Baseline creatinine is near 1 and peaked at greater than 8 this admission. Oliguric. 2. Volume overload. Partially due to third spacing due to hypoalbuminemia. Improving with UF. 3. Severe acute pancreatitis. ERCP was attempted earlier this admission. Status post open cholecystectomy on July 17. 4. Hyperphosphatemia secondary to acute kidney injury. 5. Ileus, s/p TPN. 6. Metabolic acidosis secondary to acute kidney injury. 7. Hyperkalemia secondary to acute kidney injury and metabolic acidosis. Stable. 8. Hypervolemic hyponatremia. 9. Malfunctioning femoral catheter status post exchange on July 20. Plan: Hemodialysis today and again tomorrow. Will try for 3-4 L ultrafiltration as able to tolerate. Continue with daily HD. Avoid nephrotoxins. Continue to monitor renal function and urine output. Now on Tube feeding - add phoslo tid. Wean FiO2.
--- NOTE | 2019-07-21 13:07 | P.PN ---
Progress Note - Text Progress Note Date: 07/21/19 the patient was extubated this morning. He is still obtunded. On exam his vital signs appear stable. Abdomen soft. Incision sites clean and intact. MARICHUY drain has some serosanguineous drainage. Status post open cholecystectomy for gallstone hepatitis/cholecystitis. Patient's has improved. He will Supportive care.
[2019-07-21] MEDS: HYDROmorphone 2 MG/ML 1 ML SYRINGE IVP PRN (13:23)
[2019-07-21 17:13] LABS: Glucose,Whole Blood 122 mg/dL (75-99)
--- NOTE | 2019-07-21 19:18 | P.PN ---
Progress Note - Text Progress Note Date: 07/20/19 interval history: This is a pleasant 54-year-old Patient of Dr. Malloy. Patient for about 2 y ears has had episodes of upper abdominal epigastric pain lasted for about half an hour. Started off about 2 years ago when he states the frequency is increased. More so frequently in the last 2 weeks. Especially yesterday morning patient became rather severe. Epigastric. Started having nausea vomiting. Had fever or chills. Also been getting heartburn. Patient drinks about 12 beers over the weekend. Otherwise in good health. Admitted with-acute cholecystitis with choledocholithiasis, acute gallstone pancreatitis. patient clinically deteriorated and was transferred to the ICU on July 13. Patient intubated.went into renal failure. Started with hemodialysis. Patient underwent open cholecystectomy with gallstone removal on 07/17/2019. Today-ICU. Remains on the ventilator. FiO2 50 and PEEP of 5. Drips include fentanyl, propofol, epinephrine. 2 feeding at 30 mL an hour. Got hemodialyzed today. Febrile. Putting out about 100 mL of serosanguineous drainage from MARICHUY drain.. Review of systems: patient is intubated Current medications reviewed in today's electronic records Physical examination: VITAL SIGNS: 99.1, 103, 28, 128/73, 96% on the ventilator GENERAL: laying in bed, intubated. EYES: Pupils equal. Conjunctiva normal. HEENT: External appearance of nose and ears normal, oral cavity grossly normal., endotracheal tube in place, OG tube in place NECK: JVD not raised; masses not palpable. HEART: First and second heart sounds are normal; no edema. LUNGS: Respiratory rate increased, decreased breath sounds. ABDOMEN: Soft, dressing over the incision, MARICHUY drain is present.-With serosanguineous output PSYCH: sedated INVESTIGATIONS, reviewed in the clinical context: White count 26.7 hemoglobin 8.5 potassium 5.3 bun 90 crit 6.85 phosphorus 9.9 Previous testing White count 13 hemoglobin 18.4 pressures 59 progression 4.3 crit 1.16 Total bilirubin 2.9 AST 440 ALT 574 Amylase 2794, lipase greater than 20,000 Computed tomography scan-moderate peripancreatic fat stranding, gallstones and a distended gallbladder with gallbladder wall thickening. Abdominal ultrasound-gallbladder thickening with intermittent small stones. Pericholecystic fluid EKG tracing-personally reviewed by shows normal sinus rhythm nonspecific T- wave changes blood culture and sputum culture both negative Assessment: -Acute cholecystitis secondary to choledocholithiasis, with possible ascending cholangitis,causing sepsis, status post open cholecystectomy on July 17. -Acute postprocedure blood loss anemia as expected from surgery, patient is also having serosanguineous drainage from the MARICHUY drain -Acute gallstone pancreatitis, , improved -Acute renal failure, likely ATN from hepatorenal, , started on renal replacement therapy on July 15, slow to respond -Essential hypertension -Septic and hypovolemic shock, requiring pressure support, back on levo fed -Obesity BMI 34.4 -Hyperkalemia in a patient does take LORENA inhibitor's the setting of renal failure -Severe metabolic acidosis with lactic acidosis -Acute hypoxic severe respiratory failure secondary to noncardiogenic pulmonary edema and/or ARDS, requiring ventilator support, slow to respond -Symptomatic anemia from blood loss from the MARICHUY drain requiring patient to go back to levo fed., -Hypoalbuminemia, acute phase reactant Plan: Patient remains critically ill. Intubated. shows some improvement. Remains on IV cefepime and IV Flagyl. With this serosanguineous drainage, expect hemoglobin to drop. Keep a close eye.
--- NOTE | 2019-07-21 19:25 | P.PN ---
Progress Note - Text Progress Note Date: 07/21/19 interval history: This is a pleasant 54-year-old Patient of Dr. Malloy. Patient for about 2 y ears has had episodes of upper abdominal epigastric pain lasted for about half an hour. Started off about 2 years ago when he states the frequency is increased. More so frequently in the last 2 weeks. Especially yesterday morning patient became rather severe. Epigastric. Started having nausea vomiting. Had fever or chills. Also been getting heartburn. Patient drinks about 12 beers over the weekend. Otherwise in good health. Admitted with-acute cholecystitis with choledocholithiasis, acute gallstone pancreatitis. patient clinically deteriorated and was transferred to the ICU on July 13. Patient intubated.went into renal failure. Started with hemodialysis. Patient underwent open cholecystectomy with gallstone removal on 07/17/2019. Today-ICU. Extubated earlier today. Currently on 8 L of nasal cannula. Remains in A. fib. Patient is getting hemodialysis today about 4 L of fluid removed. Urine output is has been about 40-50 mL an hour. Continues to have serosanguineous MARICHUY drain.. Review of systems: patient is very lethargic Active Medications Acetaminophen (Tylenol Tab) 650 mg PO Q4HR PRN PRN Reason: Fever and/or Mild Pain Last Admin: 07/21/19 04:04 Dose: 650 mg Documented by: Albuterol/Ipratropium (Duoneb 0.5 Mg-3 Mg/3 Ml Soln) 3 ml INHALATION RT-TID PRN PRN Reason: Shortness Of Breath Or Wheezing Albuterol/Ipratropium (Duoneb 0.5 Mg-3 Mg/3 Ml Soln) 3 ml INHALATION RT-Q4H [facility] Last Admin: 07/21/19 17:45 Dose: 3 ml Documented by: Calcium Acetate (Phoslo) 667 mg PO TID-W/MEALS [facility] Last Admin: 07/21/19 12:57 Dose: 667 mg Documented by: Heparin Sodium (Porcine) (Heparin) 5,000 unit SQ Q8HR [facility] Last Admin: 07/21/19 15:55 Dose: 5,000 unit Documented by: Hydromorphone HCl (Dilaudid) 2 mg IVP Q2H PRN PRN Reason: Moderate Pain Last Admin: 12/20/19 13:23 Dose: 2 mg Documented by: Metronidazole 500 mg/ IV (Solution) 100 mls @ 100 mls/hr IVPB Q8HR [facility] Last Admin: 07/21/19 15:55 Dose: 100 mls/hr Documented by: Cefepime HCl 1 gm/ Sodium (Chloride) 50 mls @ 100 mls/hr IVPB Q24H [facility] Last Admin: 07/21/19 04:04 Dose: 100 mls/hr Documented by: Norepinephrine Bitartrate 32 (mg/ Sodium Chloride) 250 mls @ 3.253 mls/hr IV .Q24H [facility]; Protocol Last Admin: 07/21/19 15:04 Dose: Not Given Documented by: Insulin Aspart (Novolog) 0 unit SQ Q6H [facility]; Protocol Last Admin: 07/21/19 13:00 Dose: 1 unit Documented by: Miscellaneous Information (Pharmacy To Dose Iv Vancomycin) 1 each MISCELLANE DIRECTED PRN PRN Reason: Per Protocol Naloxone HCl (Narcan) 0.2 mg IV Q2M PRN PRN Reason: Opioid Reversal Ondansetron HCl (Zofran) 4 mg IVP Q8HR PRN PRN Reason: Nausea And Vomiting Pantoprazole Sodium (Protonix) 40 mg IV DAILY [facility] Last Admin: 07/21/19 10:01 Dose: 40 mg Documented by: Physical examination: VITAL SIGNS: 99.9, 105, 28, 132/71, 98% on 8 L days, GENERAL: laying in bed, lethargic but opens eyes EYES: Pupils equal. Conjunctiva normal. HEENT: External appearance of nose and ears normal, oral cavity grossly normal., NECK: JVD unable to assess, masses not palpable. HEART: First and second heart sounds are normal; no edema. LUNGS: Respiratory rate increased, decreased breath sounds. ABDOMEN: Soft, dressing over the incision, MARICHUY drain is present.-With serosanguineous output PSYCH: Lethargic NEUROLOGICAL: Does move all limbs, awake partly INVESTIGATIONS, reviewed in the clinical context: White count 31.8 hemoglobin 7.8 platelets 301 potassium 5.4 bun 88 crit is 0.28 Previous testing White count 13 hemoglobin 18.4 pressures 59 progression 4.3 crit 1.16 Total bilirubin 2.9 AST 440 ALT 574 Amylase 2794, lipase greater than 20,000 Computed tomography scan-moderate peripancreatic fat stranding, gallstones and a distended gallbladder with gallbladder wall thickening. Abdominal ultrasound-gallbladder thickening with intermittent small stones. Pericholecystic fluid EKG tracing-personally reviewed by me shows normal sinus rhythm nonspecific T- wave changes blood culture and sputum culture both negative Assessment: -Acute cholecystitis secondary to choledocholithiasis, with possible ascending cholangitis,causing sepsis, status post open cholecystectomy on July 17. -Acute postprocedure blood loss anemia as expected from surgery, patient is also having serosanguineous drainage from the MARICHUY drain -Acute gallstone pancreatitis, , improved -Acute renal failure, likely ATN from hepatorenal, , started on renal replacement therapy on July 15, slow to respond -Essential hypertension -Septic and hypovolemic shock, requiring pressure support, back on levo fed -Obesity BMI 34.4 -Hyperkalemia in a patient does take LORENA inhibitor's the setting of renal failure -Severe metabolic acidosis with lactic acidosis -Acute hypoxic severe respiratory failure secondary to noncardiogenic pulmonary edema and/or ARDS, requiring ventilator support, slow to respond -Symptomatic anemia from blood loss from the MARICHUY drain requiring patient to go back to levo fed., -Hypoalbuminemia, acute phase reactant Plan: Patient remains critically ill. Intubated. shows some improvement. Remains on IV cefepime and IV Flagyl. With this serosanguineous drainage, expect hemoglobin to drop. Keep a close eye. After hemodialysis blood pressure did go down and patient had to go on levo fed. He will felt to be weaned off. If the blood pressure drops below 100 systolic with give unit of blood.
[2019-07-22 00:02] LABS: Glucose,Whole Blood 122 mg/dL (75-99)
[2019-07-22] MEDS: IPRATROPIUM-ALBUTEROL 3 ML NEB INHALATION SCH ×7 (00:09→23:18)
[2019-07-22] MEDS: INSULIN ASPART (NovoLOG) 100 UNIT/ML VIAL SQ SCH ×4 (00:32→18:29)
[2019-07-22] MEDS: metroNIDAZOLE-NS PMX 500 MG in SALINE 1 100ML.BAG IVPB SCH ×3 (00:42→16:49)
[2019-07-22] MEDS: HEPARIN SODIUM,PORCINE 5,000 UNIT/ML 1 ML VIAL SQ SCH ×3 (00:49→16:49)
[2019-07-22] MEDS: CEFEPIME 1 GM in SODIUM CHLORIDE 0.9% 50 ML IVPB SCH (02:52)
[2019-07-22] MEDS: HYDROmorphone 2 MG/ML 1 ML SYRINGE IVP PRN (03:30)
[2019-07-22 05:24] LABS: HCT 20.2 % (39.0-53.0); MCH 31.4 pg (25.0-35.0); MCHC 33.6 g/dL (31.0-37.0); MCV 93.6 fL (80.0-100.0); Mean Platelet Volume 9.6; Platelet Count 415 k/uL (150-450); RBC 2.16 m/uL (4.30-5.90); RDW 13.3 % (11.5-15.5); WBC 30.3 k/uL (3.8-10.6)
[2019-07-22 05:33] LABS: HGB 6.8 gm/dL (13.0-17.5)
[2019-07-22 05:36] LABS: Albumin 2.4 g/dL (3.5-5.0); Calcium 7.7 mg/dL (8.4-10.2); Potassium 4.9 mmol/L (3.5-5.1); Total Bilirubin 1.1 mg/dL (0.2-1.3); Total Protein 4.4 g/dL (6.3-8.2)
[2019-07-22 05:41] LABS: Vancomycin,Random 28.1 ug/mL
[2019-07-22 06:08] LABS: Band Neutrophils % 2 %; Lymphocytes # (M) 1.21 k/uL (1.0-4.8); Monocytes # (M) 0.61 k/uL (0-1.0); Myelocytes # (M) 0.91 k/uL (0); Myelocytes % 3 %; Neutrophils % (M) 89 %; Nucleated Red Blood Cells 0 /100 WBC (0-0); Total Cells Counted 200
[2019-07-22 06:09] LABS: Polychromasia Present
[2019-07-22 06:10] LABS: Glucose,Whole Blood 119 mg/dL (75-99)
--- NOTE | 2019-07-22 06:14 | XR ---
EXAMINATION TYPE: XR chest 1V portable DATE OF EXAM: 07/22/2019 HISTORY: follow up . REFERENCE: Previous study dated 07/21/2019. FINDINGS: The patient's NG tube remains in place, the tip is coiled in stomach. The patient has been extubated. The left internal jugular catheter is in place. It appears to been pulled back and is now in the innominate vein. There is worsening left basilar airspace disease. There is a small left effusion. Heart size is obscu red. IMPRESSION: 1. THE PATIENT'S LEFT INTERNAL JUGULAR CATHETER HAS BEEN WITHDRAWN AND IS NOW EITHER IN THE DISTAL IN TERNAL JUGULAR VEIN ON THE LEFT ARE IN THE INNOMINATE VEIN. 2. WORSENING LEFT BASILAR AIRSPACE DISEASE. 3. SMALL LEFT EFFUSION.
[2019-07-22] MEDS: CALCIUM ACETATE 667 MG TAB PO SCH ×3 (07:00→16:59)
--- NOTE | 2019-07-22 11:23 | P.PN ---
Progress Note - Text Progress Note Date: 07/22/19 the patient is awake in the ICU. He is nonverbal. On exam his vital signs appear stable. Abdomen soft. Incision sites clean dry intact. MARICHUY drain has some serosanguineous drainage. Status post gallstone hepatitis with subsequent open cholecystectomy. Patient still has a metabolic encephalopathy. We will continue supportive care.
--- NOTE | 2019-07-22 11:34 | P.PN ---
Subjective Progress Note Date: 07/22/19 On 07/22/2019 the patient is postop day #5 following open cholecystectomy post gallstone pancreatitis and multisystem organ failure. I was able to extubate the patient yesterday and remains extubated for the past 24 hours and currently is on oxygen at 5 L per minute nasal cannula. He is breathing comfortably. Chest x-ray shows improvement in the volume status although there is some atelectatic changes small effusion the lung bases most on the left. NG tube is in place. The patient is currently nothing by mouth. Enterofeeding will be restarted. He is undergoing another session of hemodialysis. The patient would have a total of 3-4 L of fluid removed and amount of fluid enlargement dependent on his blood pressure response during dialysis. His been able to tolerate the dialysis well without any need for pressors. Urine output is in order of 20-30 mL an hour. He is afebrile. His white cell count is still elevated. We did the repeat cultures and we gave him a dose of vancomycin. I will suggest continuing the vancomycin for now in conjunction with cefepime and Flagyl till we get a improvement in his white cell count. We'll send also pro-calcitonin to see if this leukocytosis is a infectious event. Otherwise, his surgical wound site is dry clean and intact. MARICHUY drain is in place and there is an output of 1 95 mL every 12 hours. He is awake. He follows some simple commands. He is still somewhat cloudy in his mentation and sensorium. He is extremely weak. His edema in the upper and lower extremity and the scrotum is improving. Objective - Vital Signs Vital signs: Vital Signs Temp 99.5 F 07/22/19 10:33 Pulse 117 H 07/22/19 10:33 Resp 28 H 07/22/19 10:33 BP 123/66 07/22/19 10:33 Pulse Ox 97 07/22/19 10:33 Intake & Output 07/21/19 07/22/19 07/22/19 18:59 06:59 18:59 Intake Total 1433.613 540.336 419 Output Total 4045 765 130 Balance -2611.387 -224.664 289 Weight 147.7 kg 145.5 kg Intake: IV 968 540 109 0.9 pressure bags 48 60 24 Cefepime 1 gm In Sodium 100 Chloride 0.9% 50 ml @ 100 mls/hr IVPB Q24H [facility] Rx# :[id number] Sodium Chloride 0.9% 1, 220 280 85 000 ml @ 30 mls/hr IV . Q24H [facility] Rx#:[id number] Vancomycin 2,500 mg In 500 Sodium Chloride 0.9% 500 ml 500 ml @ 167 mls/hr IVPB ONCE ONE Rx#: [id number] metroNIDAZOLE-NS PMX 500 200 100 mg In Saline 1 100ml.bag @ 100 mls/hr IVPB Q8HR [facility] Rx#:[id number] Intake, IV Titration 310.613 0.336 Amount Norepinephrine 32 mg In 3.448 0.336 Sodium Chloride 0.9% 218 ml @ 0.05 MCG/KG/MIN 3. 253 mls/hr IV .Q24H [facility] Rx#:[id number] Propofol 1,000 mg In 211.373 Empty Bag 1 bag @ Titrate IV .Q0M [facility] Rx#: [id number] fentaNYL (PF) 1,000 mcg 95.792 In Sodium Chloride 0.9% 80 ml @ 0.71 MCG/KG/HR 10 .139 mls/hr IV .Q9H52M [facility] Rx#:[id number] Tube Feeding 95 Blood Product 310 Rc As-3 Unit 310 [id number] Other 60 Output: Gastric Drainage 250 Drainage 250 195 Right Abdomen 250 195 Urine 295 320 130 Hemodialysis 3500 Other: Voiding Method Indwelling Catheter Indwelling Catheter ABP, PAP, CO, CI - Last Documented Arterial Blood Pressure 109/53 - Exam Gen. appearance, comfortable currently on oxygen at 5 L and is calm and comfortable without any signs of an acute respiratory distress. He is extubated. He is opening his eyes spontaneously, looks around, follows some simple commands. Head exam was generally normal. There was no scleral icterus or corneal arcus. Mucous membranes were moist. Neck was supple and without jugular venous distension, thyromegaly, or carotid bruits. Carotids were easily palpable bilaterally. There was no adenopathy. Lungs sounds are diminished bilaterally especially in the lung bases. No wheezes or rhonchi. Cardiac exam revealed the PMI to be normally situated and sized. The rhythm was regular and no extrasystoles were noted during several minutes of auscultation. The first and second heart sounds were normal and physiologic splitting of the second heart sound was noted. There were no murmurs, rubs, clicks, or gallops. Abdominal exam revealed normal bowel sounds. The abdomen was soft, non-tender, and without masses, organomegaly, or appreciable enlargement of the abdominal aorta.Bowel sounds are hypoactive at this point in time. No direct tenderness or rebound tenderness or guarding. No ascites.the patient has an incision in the right upper quadrant and the incision site is dry clean and intact and the patient has a MARICHUY drain in the right upper quadrant also. Bowel sounds are hypoactive. No direct tenderness. No rebound tenderness. No guarding. Scrotal edema. Extremities revealed +1 pitting edema and there is no cyanosis or clubbing at this point in time. Neurologic the patient awake with significant motor weakness in all 4 extremities. Pupils are equal and reactive to light. Follows some simple commands. Answers simple questions. He seems to be hard of hearing for the time being. Skin the patient has a temporary dialysis catheter in his right femoral vein. - Labs CBC & Chem 7: 07/22/19 05:15 07/22/19 05:15 Labs: Abnormal Lab Results - Last 24 Hours (Table) 07/21/19 07/21/19 07/22/19 Range/Units 12:08 17:11 00:01 WBC (3.8-10.6) k/uL RBC (4.30-5.90) m/uL Hgb (13.0-17.5) gm/dL Hct (39.0-53.0) % Neutrophils # (Manual) (1.3-7.7) k/uL Myelocytes # (Manual) (0) k/uL Sodium (137-145) mmol/L Carbon Dioxide (22-30) mmol/L BUN (9-20) mg/dL Creatinine (0.66-1.25) mg/dL Glucose (74-99) mg/dL POC Glucose (mg/dL) 150 H 122 H 122 H (75-99) mg/dL Calcium (8.4-10.2) mg/dL AST (17-59) U/L ALT (4-49) U/L Alkaline Phosphatase (38-126) U/L Total Protein (6.3-8.2) g/dL Albumin (3.5-5.0) g/dL Crossmatch 07/22/19 07/22/1919 Range/Units 05:15 05:15 06:08 WBC 30.3 H (3.8-10.6) k/uL RBC 2.16 L (4.30-5.90) m/uL Hgb 6.8 L* (13.0-17.5) gm/dL Hct 20.2 L (39.0-53.0) % Neutrophils # (Manual) 27.50 H (1.3-7.7) k/uL Myelocytes # (Manual) 0.91 H (0) k/uL Sodium 134 L (137-145) mmol/L Carbon Dioxide 17 L (22-30) mmol/L BUN 102 H* (9-20) mg/dL Creatinine 6.61 H (0.66-1.25) mg/dL Glucose 113 H (74-99) mg/dL POC Glucose (mg/dL) 119 H (75-99) mg/dL Calcium 7.7 L (8.4-10.2) mg/dL AST 67 H (17-59) U/L ALT 51 H (4-49) U/L Alkaline Phosphatase 210 H (38-126) U/L Total Protein 4.4 L (6.3-8.2) g/dL Albumin 2.4 L (3.5-5.0) g/dL Crossmatch 07/22/19 Range/Units 06:40 WBC (3.8-10.6) k/uL RBC (4.30-5.90) m/uL Hgb (13.0-17.5) gm/dL Hct (39.0-53.0) % Neutrophils # (Manual) (1.3-7.7) k/uL Myelocytes # (Manual) (0) k/uL Sodium (137-145) mmol/L Carbon Dioxide (22-30) mmol/L BUN (9-20) mg/dL Creatinine (0.66-1.25) mg/dL Glucose (74-99) mg/dL POC Glucose (mg/dL) (75-99) mg/dL Calcium (8.4-10.2) mg/dL AST (17-59) U/L ALT (4-49) U/L Alkaline Phosphatase (38-126) U/L Total Protein (6.3-8.2) g/dL Albumin (3.5-5.0) g/dL Crossmatch See Detail Microbiology - Last 24 Hours (Table) 07/19/19 10:20 Blood Culture - Preliminary Blood No Growth after 48 hours Assessment and Plan Plan: 1 Gallstone pancreatitis, improving. The patient also has an acute cholecystitis with cholelithiasis. The common bile duct was within normal limits. ERCPs and currently the patient is post open cholecystectomy and the patient is postop day #5. Currently remains on a combination of IV cefepime and Flagyl. vancomycin was also added as the patient was having To the fever and ongoing leukocytosis suspecting underlying sepsis/infection. The white cell count remains elevated at 31 and this is being monitored. 2 severe pancreatitis, improving, amylase and lipase is improved. the amylase and lipase is improved and the patient will be started on enteral feeding via NG tube 3 acute hypoxic respiratory failure with development of pulmonary edema and pleural effusions, he covered and the patient was extubated and currently is on nasal cannula. Chest x-ray from today was noted. 4 acute kidney injury currently on hemodialysis, The patient is undergoing daily dialysis. A new dialysis catheter was inserted in the right femoral vein and is undergoing dialysis on a daily basis with an ultrafiltration of 3-4 L 5 fever, leukocytosis andhypotension, on pressorst a lower dose. Rule out developing infection/sepsis. Blood cultures of been sent. We'll add vancomycin. The patient's fever defervesced. Nevertheless, the cultures are still negative and his white cell count is on the rise at 31. Hemodynamically not requiring any pressors for today 6 alcoholism 7 smoker 8 hypertension history of 9 bilateral hearing loss 10 hyperphosphatemia, improving 11 leukocytosis, secondary to sepsis, white cell count is at 31, check pro- calcitonin levels 12 TPN for nutritional support, discontinued and the patient was switched to enteral feeding for nutritional support 13 open cholecystectomy, postop day #5 14 thrombocytopenia, platelet counts improving Plan Keep on 5 L of oxygen by nasal cannula Complete hemodialysis Continue cefepime Flagyl and vancomycin Monitor fever pattern Monitor white cell count Check pro-calcitonin level Incision is dry clean and intact Monitor the output from the NG Monitor urine output Daily hemodialysis Restart enteral feeding for nutritional support He is profoundly weak and has some residual encephalopathy which is gradually improving as the patient was taken off sedation and is being dialyzed on a daily basis. I think this is a drug induced/metabolic encephalopathy which ultimately improved. Condition is still critical. We'll keep in ICU. We'll continue to follow. This evaluation was done and more than 30 minutes. Time with Patient: Greater than 30
[2019-07-22] MEDS ORDERED: HEPARIN SODIUM,PORCINE 5,000 UNIT/ML 1 ML VIAL ONE (12:00)
--- NOTE | 2019-07-22 13:05 | P.PN ---
Subjective Progress Note Date: 07/22/19 Principal diagnosis: This 54-year-old male is seen because of acute kidney injury status post cholecystectomy, pancreatitis gallstone and multiorgan failure. He's been on dialysis starting from 07/15/2019. His baseline creatinine was 1. Currently he is dialyzed this this morning and tolerated well He is awake alert but weak. He does answer questions slowly but does appropr iate Urine output is picking up it was 360 mL day before and 56 and 15 yesterday. He had ultrafiltration of 3500 mL yesterday. He is being dialyzed every day or the last several days Objective - Vital Signs Vital signs: Vital Signs Temp 99.5 F 07/22/19 10:33 Pulse 118 H 07/22/19 11:00 Resp 25 H 07/22/19 11:00 BP 120/67 07/22/19 11:00 Pulse Ox 96 07/22/19 11:00 Intake & Output 07/21/19 07/22/19 07/22/19 18:59 06:59 18:59 Intake Total 1433.613 540.336 445 Output Total 4045 765 150 Balance -2611.387 -224.664 295 Weight 147.7 kg 145.5 kg Intake: IV 968 540 135 0.9 pressure bags 48 60 30 Cefepime 1 gm In Sodium 100 Chloride 0.9% 50 ml @ 100 mls/hr IVPB Q24H [facility] Rx# :[id number] Sodium Chloride 0.9% 1, 220 280 105 000 ml @ 30 mls/hr IV . Q24H [facility] Rx#:[id number] Vancomycin 2,500 mg In 500 Sodium Chloride 0.9% 500 ml 500 ml @ 167 mls/hr IVPB ONCE ONE Rx#: [id number] metroNIDAZOLE-NS PMX 500 200 100 mg In Saline 1 100ml.bag @ 100 mls/hr IVPB Q8HR [facility] Rx#:[id number] Intake, IV Titration 310.613 0.336 Amount Norepinephrine 32 mg In 3.448 0.336 Sodium Chloride 0.9% 218 ml @ 0.05 MCG/KG/MIN 3. 253 mls/hr IV .Q24H [facility] Rx#:[id number] Propofol 1,000 mg In 211.373 Empty Bag 1 bag @ Titrate IV .Q0M [facility] Rx#: [id number] fentaNYL (PF) 1,000 mcg 95.792 In Sodium Chloride 0.9% 80 ml @ 0.71 MCG/KG/HR 10 .139 mls/hr IV .Q9H52M COUNT INCLUDES THE [facility] Rx#:[id number] Tube Feeding 95 Blood Product 310 Rc As-3 Unit 310 [id number] Other 60 Output: Gastric Drainage 250 Drainage 250 195 Right Abdomen 250 195 Urine 295 320 150 Hemodialysis 3500 Other: Voiding Method Indwelling Catheter Indwelling Catheter ABP, PAP, CO, CI - Last Documented Arterial Blood Pressure 129/63 On examination is awake alert oriented He is slow to respond but is appropriate HEENT exam no JVP neck is supple no facial asymmetry Lungs are clear to auscultation fair air entry bilaterally Heart sounds are unremarkable for any murmur rub gallop Abdomen is soft no masses felt no bowel sounds are heard and had not passed any stools Extremity exam was moderate edema Neurologically as mentioned about awake alert oriented to place percent and time Very weak though - Labs CBC & Chem 7: 07/22/19 05:15 07/22/19 05:15 Labs: Abnormal Lab Results - Last 24 Hours (Table) 07/21/19 07/22/19 07/22/19 Range/Units 17:11 00:01 05:15 WBC (3.8-10.6) k/uL RBC (4.30-5.90) m/uL Hgb (13.0-17.5) gm/dL Hct (39.0-53.0) % Neutrophils # (Manual) (1.3-7.7) k/uL Myelocytes # (Manual) (0) k/uL Sodium 134 L (137-145) mmol/L Carbon Dioxide 17 L (22-30) mmol/L BUN 102 H* (9-20) mg/dL Creatinine 6.61 H (0.66-1.25) mg/dL Glucose 113 H (74-99) mg/dL POC Glucose (mg/dL) 122 H 122 H (75-99) mg/dL Calcium 7.7 L (8.4-10.2) mg/dL AST 67 H (17-59) U/L ALT 51 H (4-49) U/L Alkaline Phosphatase 210 H (38-126) U/L Total Protein 4.4 L (6.3-8.2) g/dL Albumin 2.4 L (3.5-5.0) g/dL Crossmatch 07/22/19 07/22/19 07/22/19 Range/Units 05:15 06:08 06:40 WBC 30.3 H (3.8-10.6) k/uL RBC 2.16 L (4.30-5.90) m/uL Hgb 6.8 L* (13.0-17.5) gm/dL Hct 20.2 L (39.0-53.0) % Neutrophils # (Manual) 27.50 H (1.3-7.7) k/uL Myelocytes # (Manual) 0.91 H (0) k/uL Sodium (137-145) mmol/L Carbon Dioxide (22-30) mmol/L BUN (9-20) mg/dL Creatinine (0.66-1.25) mg/dL Glucose (74-99) mg/dL POC Glucose (mg/dL) 119 H (75-99) mg/dL Calcium (8.4-10.2) mg/dL AST (17-59) U/L ALT (4-49) U/L Alkaline Phosphatase (38-126) U/L Total Protein (6.3-8.2) g/dL Albumin (3.5-5.0) g/dL Crossmatch See Detail Microbiology - Last 24 Hours (Table) 07/19/19 10:20 Blood Culture - Preliminary Blood No Growth after 48 hours Assessment and Plan Plan: Impression 1. ATN secondary to sepsis, secondary to gallstone pancreatitis status post cholecystectomy on dialysis since 07/15/2019 almost on a daily basis. Urine output is picking up may be starting to recover. Last dialysis today. Patient is on vancomycin with level of 28.1 as of this morning which would be detrimental to his recovery of renal function 2. A chest x-ray shows left basilar airspace disease which is worse and small left effusion 3. Silent abdomen with no bowel movement. Starting on small amount of tube feeding today. 4. Volume overloaded with edema 2+ 5. Metabolic acidosis with bicarb of 17 gap of 15 secondary to acute kidney injury 6. Pancreatitis. Resolved Bilirubin is 1.1 7. Severe anemia hemoglobin 6.8 Recommendation 1. Ensure adequate follow-up of vancomycin and does it appropriately to keep levels around 15 2. We'll watch his bicarb and if possible start by mouth tomorrow if he can tolerate his tube feeding. 3. Transfuse 1-2 packs cells because of severe anemia 4. Check iron saturation 5. Start Aranesp 12.5 every week subcu
[2019-07-22 14:15] LABS: Glucose,Whole Blood 127 mg/dL (75-99)
[2019-07-22] MEDS: PANTOPRAZOLE 40 MG/10 ML VIAL IV SCH (15:53)
[2019-07-22] MEDS: NOREPINEPHRINE 32 MG in SODIUM CHLORIDE 0.9% 218 ML IV SCH (15:55)
[2019-07-22] MEDS: DARBEPOETIN ALFA 25 MCG/0.42 ML SYRINGE SQ SCH (16:53)
[2019-07-22 17:25] LABS: Glucose,Whole Blood 134 mg/dL (75-99)
[2019-07-22 17:58] LABS: HCT 22.3 % (39.0-53.0); HGB 7.5 gm/dL (13.0-17.5); MCH 31.3 pg (25.0-35.0); MCHC 33.9 g/dL (31.0-37.0); MCV 92.4 fL (80.0-100.0); Mean Platelet Volume 9.2; Platelet Count 420 k/uL (150-450); Poikilocytosis Slight; RBC 2.41 m/uL (4.30-5.90); RDW 14.1 % (11.5-15.5); WBC 33.1 k/uL (3.8-10.6)
--- NOTE | 2019-07-22 23:05 | P.PN ---
Progress Note - Text Progress Note Date: 07/22/19 interval history: This is a pleasant 54-year-old Patient of Dr. Malloy. Patient for about 2 y ears has had episodes of upper abdominal epigastric pain lasted for about half an hour. Started off about 2 years ago when he states the frequency is increased. More so frequently in the last 2 weeks. Especially yesterday morning patient became rather severe. Epigastric. Started having nausea vomiting. Had fever or chills. Also been getting heartburn. Patient drinks about 12 beers over the weekend. Otherwise in good health. Admitted with-acute cholecystitis with choledocholithiasis, acute gallstone pancreatitis. patient clinically deteriorated and was transferred to the ICU on July 13. Patient intubated.went into renal failure. Started with hemodialysis. Patient underwent open cholecystectomy with gallstone removal on 07/17/2019. extubated July 21. Today-ICU. responded a bit more. Still a bit encephalopathic. Though moving his head. we attempt to say occasional word. On nasal cannula. IV fluids. at the bedside...hemoglobin dropped to 6.8. Was ordered unit of blood Review of systems: patient is lethargic Active Medications Acetaminophen (Tylenol Tab) 650 mg PO Q4HR PRN PRN Reason: Fever and/or Mild Pain Last Admin: 07/21/19 04:04 Dose: 650 mg Documented by: Albuterol/Ipratropium (Duoneb 0.5 Mg-3 Mg/3 Ml Soln) 3 ml INHALATION RT-TID PRN PRN Reason: Shortness Of Breath Or Wheezing Albuterol/Ipratropium (Duoneb 0.5 Mg-3 Mg/3 Ml Soln) 3 ml INHALATION RT-Q4H [facility] Last Admin: 07/22/19 21:22 Dose: 3 ml Documented by: Calcium Acetate (Phoslo) 667 mg PO TID-W/MEALS [facility] Last Admin: 07/22/19 16:59 Dose: 667 mg Documented by: Darbepoetin Mj (Aranesp) 12.5 mcg SQ Q7D [facility] Last Admin: 07/22/19 16:53 Dose: 12.5 mcg Documented by: Heparin Sodium (Porcine) (Heparin) 5,000 unit SQ Q8HR [facility] Last Admin: 07/22/19 16:49 Dose: 5,000 unit Documented by: Hydromorphone HCl (Dilaudid) 2 mg IVP Q2H PRN PRN Reason: Moderate Pain Last Admin: 07/22/19 03:30 Dose: 2 mg Documented by: Metronidazole 500 mg/ IV (Solution) 100 mls @ 100 mls/hr IVPB Q8HR [facility] Last Admin: 07/22/19 16:49 Dose: 100 mls/hr Documented by: Cefepime HCl 1 gm/ Sodium (Chloride) 50 mls @ 100 mls/hr IVPB Q24H [facility] Last Admin: 07/22/19 02:52 Dose: 100 mls/hr Documented by: Norepinephrine Bitartrate 32 (mg/ Sodium Chloride) 250 mls @ 3.253 mls/hr IV .Q24H [facility]; Protocol Last Admin: 07/22/19 15:55 Dose: Not Given Documented by: Insulin Aspart (Novolog) 0 unit SQ Q6H [facility]; Protocol Last Admin: 07/22/19 18:29 Dose: 1 unit Documented by: Miscellaneous Information (Pharmacy To Dose Iv Vancomycin) 1 each MISCELLANE DIRECTED PRN PRN Reason: Per Protocol Naloxone HCl (Narcan) 0.2 mg IV Q2M PRN PRN Reason: Opioid Reversal Ondansetron HCl (Zofran) 4 mg IVP Q8HR PRN PRN Reason: Nausea And Vomiting Pantoprazole Sodium (Protonix) 40 mg IV DAILY [facility] Last Admin: 07/22/19 15:53 Dose: 40 mg Documented by: Physical examination: VITAL SIGNS: 99.5, 117, 28, 123/66, 97% on 5 L GENERAL: laying in bed, a bit more of a postictal lethargic EYES: Pupils equal. Conjunctiva normal. HEENT: External appearance of nose and ears normal, oral cavity grossly normal., NECK: JVD unable to assess, masses not palpable. HEART: First and second heart sounds are normal; no edema. LUNGS: Respiratory rate increased, decreased breath sounds. ABDOMEN: Soft, dressing over the incision, MARICHUY drain is present.-With serosanguineous output PSYCH: Lethargic NEUROLOGICAL: Does move all limbs, more awake. Does move his head, occasionally moving his arms INVESTIGATIONS, reviewed in the clinical context: white count 33.1 hemoglobin 6.8 potassium 4.9 bun 102 creatine 6.61 Previous testing White count 13 hemoglobin 18.4 pressures 59 progression 4.3 crit 1.16 Total bilirubin 2.9 AST 440 ALT 574 Amylase 2794, lipase greater than 20,000 Computed tomography scan-moderate peripancreatic fat stranding, gallstones and a distended gallbladder with gallbladder wall thickening. Abdominal ultrasound-gallbladder thickening with intermittent small stones. Pericholecystic fluid EKG tracing-personally reviewed by me shows normal sinus rhythm nonspecific T- wave changes blood culture and sputum culture both negative Assessment: -Acute cholecystitis secondary to choledocholithiasis, with possible ascending cholangitis,causing sepsis, status post open cholecystectomy on July 17. -Acute postprocedure blood loss anemia as expected from surgery, patient is also having serosanguineous drainage from the MARICHUY drain -Acute gallstone pancreatitis, , improved -Acute renal failure, likely ATN from hepatorenal, , started on renal replacement therapy on July 15, slow to respond -Essential hypertension -Septic and hypovolemic shock, requiring pressure support, back on levo fed -Obesity BMI 34.4 -Hyperkalemia in a patient does take LORENA inhibitor's the setting of renal failure -Severe metabolic acidosis with lactic acidosis -Acute hypoxic severe respiratory failure secondary to noncardiogenic pulmonary edema status post ventilator support, extubated on July 21 -Symptomatic anemia from blood loss from the MARICHUY drain -Hypoalbuminemia, acute phase reactant Plan: on 5 L of nasal cannula. Remains on IV cefepime and IV Flagyl. With this serosanguineous drainage, 1 unit of blood transfused this morning.. discussed with the at bedside.
[2019-07-22] MEDS ORDERED: IPRATROPIUM-ALBUTEROL 3 ML NEB INHALATION PRN (23:18)
[2019-07-22 23:39] LABS: % Iron Saturation 33.33 (15.00-50.00)
[2019-07-23 00:11] LABS: Glucose,Whole Blood 139 mg/dL (75-99)
[2019-07-23] MEDS: INSULIN ASPART (NovoLOG) 100 UNIT/ML VIAL SQ SCH ×5 (00:41→18:41)
[2019-07-23] MEDS: HEPARIN SODIUM,PORCINE 5,000 UNIT/ML 1 ML VIAL SQ SCH ×3 (00:42→17:40)
[2019-07-23] MEDS: metroNIDAZOLE-NS PMX 500 MG in SALINE 1 100ML.BAG IVPB SCH ×3 (00:42→17:40)
[2019-07-23] MEDS: CEFEPIME 1 GM in SODIUM CHLORIDE 0.9% 50 ML IVPB SCH (02:22)
[2019-07-23 05:15] LABS: HCT 21.8 % (39.0-53.0); HGB 7.3 gm/dL (13.0-17.5); MCH 31.1 pg (25.0-35.0); MCHC 33.6 g/dL (31.0-37.0); MCV 92.6 fL (80.0-100.0); Mean Platelet Volume 8.7; Platelet Count 510 k/uL (150-450); RBC 2.36 m/uL (4.30-5.90); WBC 30.7 k/uL (3.8-10.6)
[2019-07-23 05:22] LABS: Albumin 2.6 g/dL (3.5-5.0); Calcium 7.8 mg/dL (8.4-10.2); Potassium 4.6 mmol/L (3.5-5.1); Total Bilirubin 0.9 mg/dL (0.2-1.3); Total Protein 4.9 g/dL (6.3-8.2)
[2019-07-23 05:28] LABS: Vancomycin,Random 21.6 ug/mL
[2019-07-23 05:53] LABS: Band Neutrophils % 5 %; Eosinophils # (M) 0.61 k/uL (0-0.7); Lymphocytes # (M) 1.84 k/uL (1.0-4.8); Monocytes # (M) 1.84 k/uL (0-1.0); Myelocytes # (M) 0.31 k/uL (0); Myelocytes % 1 %; Neutrophils % (M) 81 %; Nucleated Red Blood Cells 0 /100 WBC (0-0); Total Cells Counted 200
[2019-07-23 05:54] LABS: Reactive Lymphocytes Present
[2019-07-23 05:56] LABS: Glucose,Whole Blood 120 mg/dL (75-99)
--- NOTE | 2019-07-23 06:34 | XR ---
EXAMINATION TYPE: XR chest 1V portable DATE OF EXAM: 07/23/2019 HISTORY: follow up. REFERENCE: Previous study dated 07/22/2019. FINDINGS: An NG tube is present and its tip is in the stomach. The patient left internal jugular line has been advanced. The tip is now in the right atrium. There has been a poor inspiration. Heart size upper limits of normal. There are small, bilateral effu sions. There is bibasilar atelectasis. IMPRESSION: 1. SATISFACTORY POSITION OF THE PATIENT'S LEFT INTERNAL JUGULAR CATHETER. 2. POOR INSPIRATION. 3. BIBASILAR ATELECTASIS AND SMALL, BILATERAL EFFUSIONS.
[2019-07-23] MEDS: CALCIUM ACETATE 667 MG TAB PO SCH ×3 (07:59→17:40)
--- NOTE | 2019-07-23 09:08 | P.PN ---
Subjective Progress Note Date: 07/23/19 Principal diagnosis: This 54-year-old male is seen because of acute kidney injury status post cholecystectomy, pancreatitis gallstone and multiorgan failure. He's been on dialysis starting from 07/15/2019. His baseline creatinine was 1. He was dialyzed yesterday 07/22/2019 and tolerated well, he is again on dialysis today and is tolerating ultrafiltration very well. He is awake alert but weak. He does answer questions slowly but does appropriate Urine output is picking up slowly in the last 24 hours urine output was 445 mL the day before yesterday increased to 580 mLlast 24 hours Objective - Vital Signs Vital signs: Vital Signs Temp 98.8 F 07/23/19 04:01 Pulse 114 H 07/23/19 07:00 Resp 27 H 07/23/19 07:00 BP 125/77 07/23/19 07:00 Pulse Ox 96 07/23/19 07:00 Intake & Output 07/22/19 07/23/19 07/23/19 18:59 06:59 18:59 Intake Total 667 762 36 Output Total 325 415 60 Balance 342 347 -24 Weight 136.8 kg Intake: IV 317 512 26 0.9 220 20 0.9 pressure bags 72 72 6 Cefepime 1 gm In Sodium 100 Chloride 0.9% 50 ml @ 100 mls/hr IVPB Q24H [facility] Rx# :[id number] Sodium Chloride 0.9% 1, 245 20 000 ml @ 30 mls/hr IV . Q24H [facility] Rx#:[id number] metroNIDAZOLE-NS PMX 500 100 mg In Saline 1 100ml.bag @ 100 mls/hr IVPB Q8HR [facility] Rx#:[id number] Oral 10 Tube Feeding 30 160 10 Blood Product 310 Rc As-3 Unit 310 [id number] Other 90 Output: Drainage 90 70 Right Abdomen 90 70 Urine 235 345 60 Other: Voiding Method Indwelling Catheter Indwelling Catheter ABP, PAP, CO, CI - Last Documented Arterial Blood Pressure 126/67 Exams and is awake alert speaks very slowly HEENT exam no JVP neck is supple no facial asymmetry Lungs are clear to auscultation. Fair air entry bilaterally A chest x-ray shows no change since yesterday with minimal bilateral effusions Heart sounds are unremarkable no murmur rub gallop Abdomen soft nontender Extremity exam reveals minimal edema Neurologically awake alert and communicates but is very slow. Has profound weakness - Labs CBC & Chem 7: 07/23/19 05:02 07/23/19 05:02 Labs: Abnormal Lab Results - Last 24 Hours (Table) 07/22/19 07/22/19 07/22/19 Range/Units 05:15 05:15 06:40 WBC (3.8-10.6) k/uL RBC (4.30-5.90) m/uL Hgb (13.0-17.5) gm/dL Hct (39.0-53.0) % Plt Count (150-450) k/uL Neutrophils # (Manual) (1.3-7.7) k/uL Monocytes # (Manual) (0-1.0) k/uL Myelocytes # (Manual) (0) k/uL Carbon Dioxide (22-30) mmol/L BUN (9-20) mg/dL Creatinine (0.66-1.25) mg/dL Glucose (74-99) mg/dL POC Glucose (mg/dL) (75-99) mg/dL Calcium (8.4-10.2) mg/dL Iron 51 L (65-175) ug/dL TIBC 153 L (228-460) ug/dL AST (17-59) U/L ALT (4-49) U/L Alkaline Phosphatase (38-126) U/L Total Protein (6.3-8.2) g/dL Albumin (3.5-5.0) g/dL Procalcitonin 2.25 H (0.02-0.09) ng/mL Crossmatch See Detail 07/22/19 07/22/19 07/22/19 Range/Units 14:13 17:24 17:30 WBC 33.1 H (3.8-10.6) k/uL RBC 2.41 L (4.30-5.90) m/uL Hgb 7.5 L (13.0-17.5) gm/dL Hct 22.3 L (39.0-53.0) % Plt Count (150-450) k/uL Neutrophils # (Manual) (1.3-7.7) k/uL Monocytes # (Manual) (0-1.0) k/uL Myelocytes # (Manual) (0) k/uL Carbon Dioxide (22-30) mmol/L BUN (9-20) mg/dL Creatinine (0.66-1.25) mg/dL Glucose (74-99) mg/dL POC Glucose (mg/dL) 127 H 134 H (75-99) mg/dL Calcium (8.4-10.2) mg/dL Iron (65-175) ug/dL TIBC (228-460) ug/dL AST (17-59) U/L ALT (4-49) U/L Alkaline Phosphatase (38-126) U/L Total Protein (6.3-8.2) g/dL Albumin (3.5-5.0) g/dL Procalcitonin (0.02-0.09) ng/mL Crossmatch 07/23/19 07/23/19 07/23/19 Range/Units 00:10 05:02 05:02 WBC 30.7 H (3.8-10.6) k/uL RBC 2.36 L (4.30-5.90) m/uL Hgb 7.3 L (13.0-17.5) gm/dL Hct 21.8 L (39.0-53.0) % Plt Count 510 H (150-450) k/uL Neutrophils # (Manual) 26.40 H (1.3-7.7) k/uL Monocytes # (Manual) 1.84 H (0-1.0) k/uL Myelocytes # (Manual) 0.31 H (0) k/uL Carbon Dioxide 16 L (22-30) mmol/L BUN 116 H* (9-20) mg/dL Creatinine 7.00 H (0.66-1.25) mg/dL Glucose 112 H (74-99) mg/dL POC Glucose (mg/dL) 139 H (75-99) mg/dL Calcium 7.8 L (8.4-10.2) mg/dL Iron (65-175) ug/dL TIBC (228-460) ug/dL AST 66 H (17-59) U/L ALT 56 H (4-49) U/L Alkaline Phosphatase 223 H (38-126) U/L Total Protein 4.9 L (6.3-8.2) g/dL Albumin 2.6 L (3.5-5.0) g/dL Procalcitonin (0.02-0.09) ng/mL Crossmatch 07/23/19 Range/Units 05:55 WBC (3.8-10.6) k/uL RBC (4.30-5.90) m/uL Hgb (13.0-17.5) gm/dL Hct (39.0-53.0) % Plt Count (150-450) k/uL Neutrophils # (Manual) (1.3-7.7) k/uL Monocytes # (Manual) (0-1.0) k/uL Myelocytes # (Manual) (0) k/uL Carbon Dioxide (22-30) mmol/L BUN (9-20) mg/dL Creatinine (0.66-1.25) mg/dL Glucose (74-99) mg/dL POC Glucose (mg/dL) 120 H (75-99) mg/dL Calcium (8.4-10.2) mg/dL Iron (65-175) ug/dL TIBC (228-460) ug/dL AST (17-59) U/L ALT (4-49) U/L Alkaline Phosphatase (38-126) U/L Total Protein (6.3-8.2) g/dL Albumin (3.5-5.0) g/dL Procalcitonin (0.02-0.09) ng/mL Crossmatch Microbiology - Last 24 Hours (Table) 07/19/19 10:20 Blood Culture - Preliminary Blood No Growth after 72 hours Assessment and Plan Plan: Impression 1. ATN secondary to sepsis, secondary to gallstone pancreatitis status post cholecystectomy on dialysis since 07/15/2019 almost on a daily basis. Urine output is picking up may be starting to recover. Last dialysis today. Patient is on vancomycin with level of 28.1 as of this morning which would be detrimental to his recovery of renal function 2. A chest x-ray shows left basilar airspace disease which is worse and small left effusion Wednesday is stable 3. Silent abdomen with no bowel movement. Starting on small amount of tube feeding yesterday and tolerating it 4. Volume overloaded with edema 2+, improving slowly 5. Metabolic acidosis with bicarb of 17 gap of 16 secondary to acute kidney injury 6. Pancreatitis. Resolved Bilirubin is 1.1 7. Severe anemia hemoglobin 6.8, status post transfusion hemoglobin is 7.3 this morning. Iron saturation is 33% Recommendation 1. Ensure adequate follow-up of vancomycin and does it appropriately to keep levels around 15 2. We'll watch his bicarb and if possible start by mouth tomorrow if he can tolerate his tube feeding. 3. Started Aranesp 12.5 every week subcu, first dose was 07/22/19. 4. Next dialysis will be day after tomorrow will on 07/25/19
[2019-07-23] MEDS: IPRATROPIUM-ALBUTEROL 3 ML NEB INHALATION SCH ×4 (09:28→20:47)
--- NOTE | 2019-07-23 10:03 | P.PN ---
Subjective Progress Note Date: 07/23/19 On 07/23/2019 the patient is postop day #6 the patient underwent open cholecystectomy for gallstone pancreatitis and the patient multisystem organ failure. I was able to extubate the patient. As a complication of hisdisease the patient developed an acute kidney injury. Is currently on hemodialysis on a daily basis. A total of 4 L of fluid was ultrafiltrate yesterday. His urine output has improved and the patient is producing around 15-20 mL an hour of urine output. He is currently undergoing dialysis and the goal is to ultrafiltrate him for another 4 L today. Chest x-ray shows small bilateral pleural effusion slightly worse on the left. NG tube is in place. He is receiving enteral feeding for nutritional support. He was able to tolerate that. He is admitted intensive an hour of vital high protein. No fever. No chills. No aspiration. This surgical wound site is dry clean and intact. MARICHUY drain is in place. He is still on a combination of antibiotics utilizing cefepime and Flagyl. White cell count remains elevated at 30. The pro- calcitonin level was sent and the level was at 2.25. As such, there is an underlying concern for sepsis. I was concerned about underlying infection. I added vancomycin to his regimen. Nevertheless the cultures are negative. The catheter is obviously new within the patient has a right femoral hemodialysis catheter that was inserted 2 days ago and he has a left IJ triple-lumen catheter was inserted on 07/13/2019 He is slightly tachycardic. He is having a low- grade fever of 100.1 Objective - Vital Signs Vital signs: Vital Signs Temp 98.8 F 07/23/19 04:01 Pulse 114 H 07/23/19 07:00 Resp 27 H 07/23/19 07:00 BP 125/77 07/23/19 07:00 Pulse Ox 96 07/23/19 07:00 Intake & Output 07/22/19 07/23/19 07/23/19 18:59 06:59 18:59 Intake Total 667 762 36 Output Total 325 415 60 Balance 342 347 -24 Weight 136.8 kg Intake: IV 317 512 26 0.9 220 20 0.9 pressure bags 72 72 6 Cefepime 1 gm In Sodium 100 Chloride 0.9% 50 ml @ 100 mls/hr IVPB Q24H [facility] Rx# :[id number] Sodium Chloride 0.9% 1, 245 20 000 ml @ 30 mls/hr IV . Q24H [facility] Rx#:[id number] metroNIDAZOLE-NS PMX 500 100 mg In Saline 1 100ml.bag @ 100 mls/hr IVPB Q8HR [facility] Rx#:[id number] Oral 10 Tube Feeding 30 160 10 Blood Product 310 Rc As-3 Unit 310 [id number] Other 90 Output: Drainage 90 70 Right Abdomen 90 70 Urine 235 345 60 Other: Voiding Method Indwelling Catheter Indwelling Catheter ABP, PAP, CO, CI - Last Documented Arterial Blood Pressure 126/67 - Exam Gen. appearance, comfortable currently on oxygen at 3 L and is calm and comfortable without any signs of an acute respiratory distress. He is extubated. He is opening his eyes spontaneously, looks around, follows some simple commands. Head exam was generally normal. There was no scleral icterus or corneal arcus. Mucous membranes were moist. Neck was supple and without jugular venous distension, thyromegaly, or carotid bruits. Carotids were easily palpable bilaterally. There was no adenopathy. Lungs sounds are diminished bilaterally especially in the lung bases. No wheezes or rhonchi. Cardiac exam revealed the PMI to be normally situated and sized. The rhythm was regular and no extrasystoles were noted during several minutes of auscultation. The first and second heart sounds were normal and physiologic splitting of the second heart sound was noted. There were no murmurs, rubs, clicks, or gallops. Abdominal exam revealed normal bowel sounds. The abdomen was soft, non-tender, and without masses, organomegaly, or appreciable enlargement of the abdominal aorta.Bowel sounds are hypoactive at this point in time. No direct tenderness or rebound tenderness or guarding. No ascites.the patient has an incision in the right upper quadrant and the incision site is dry clean and intact and the patient has a MARICHUY drain in the right upper quadrant also. Bowel sounds are hypoactive. No direct tenderness. No rebound tenderness. No guarding. Scrotal edema. Extremities revealed +1 pitting edema and there is no cyanosis or clubbing at this point in time. Neurologic the patient awake with significant motor weakness in all 4 extremities. Pupils are equal and reactive to light. Follows some simple commands. Answers simple questions. He seems to be hard of hearing for the time being. Skin the patient has a temporary dialysis catheter in his right femoral vein. - Labs CBC & Chem 7: 07/23/19 05:02 07/23/19 05:02 Labs: Abnormal Lab Results - Last 24 Hours (Table) 07/22/19 07/22/19 07/22/19 Range/Units 05:15 05:15 06:40 WBC (3.8-10.6) k/uL RBC (4.30-5.90) m/uL Hgb (13.0-17.5) gm/dL Hct (39.0-53.0) % Plt Count (150-450) k/uL Neutrophils # (Manual) (1.3-7.7) k/uL Monocytes # (Manual) (0-1.0) k/uL Myelocytes # (Manual) (0) k/uL Carbon Dioxide (22-30) mmol/L BUN (9-20) mg/dL Creatinine (0.66-1.25) mg/dL Glucose (74-99) mg/dL POC Glucose (mg/dL) (75-99) mg/dL Calcium (8.4-10.2) mg/dL Iron 51 L (65-175) ug/dL TIBC 153 L (228-460) ug/dL AST (17-59) U/L ALT (4-49) U/L Alkaline Phosphatase (38-126) U/L Total Protein (6.3-8.2) g/dL Albumin (3.5-5.0) g/dL Procalcitonin 2.25 H (0.02-0.09) ng/mL Crossmatch See Detail 07/22/19 07/22/19 07/22/19 Range/Units 14:13 17:24 17:30 WBC 33.1 H (3.8-10.6) k/uL RBC 2.41 L (4.30-5.90) m/uL Hgb 7.5 L (13.0-17.5) gm/dL Hct 22.3 L (39.0-53.0) % Plt Count (150-450) k/uL Neutrophils # (Manual) (1.3-7.7) k/uL Monocytes # (Manual) (0-1.0) k/uL Myelocytes # (Manual) (0) k/uL Carbon Dioxide (22-30) mmol/L BUN (9-20) mg/dL Creatinine (0.66-1.25) mg/dL Glucose (74-99) mg/dL POC Glucose (mg/dL) 127 H 134 H (75-99) mg/dL Calcium (8.4-10.2) mg/dL Iron (65-175) ug/dL TIBC (228-460) ug/dL AST (17-59) U/L ALT (4-49) U/L Alkaline Phosphatase (38-126) U/L Total Protein (6.3-8.2) g/dL Albumin (3.5-5.0) g/dL Procalcitonin (0.02-0.09) ng/mL Crossmatch 07/23/19 07/23/19 07/23/19 Range/Units 00:10 05:02 05:02 WBC 30.7 H (3.8-10.6) k/uL RBC 2.36 L (4.30-5.90) m/uL Hgb 7.3 L (13.0-17.5) gm/dL Hct 21.8 L (39.0-53.0) % Plt Count 510 H (150-450) k/uL Neutrophils # (Manual) 26.40 H (1.3-7.7) k/uL Monocytes # (Manual) 1.84 H (0-1.0) k/uL Myelocytes # (Manual) 0.31 H (0) k/uL Carbon Dioxide 16 L (22-30) mmol/L BUN 116 H* (9-20) mg/dL Creatinine 7.00 H (0.66-1.25) mg/dL Glucose 112 H (74-99) mg/dL POC Glucose (mg/dL) 139 H (75-99) mg/dL Calcium 7.8 L (8.4-10.2) mg/dL Iron (65-175) ug/dL TIBC (228-460) ug/dL AST 66 H (17-59) U/L ALT 56 H (4-49) U/L Alkaline Phosphatase 223 H (38-126) U/L Total Protein 4.9 L (6.3-8.2) g/dL Albumin 2.6 L (3.5-5.0) g/dL Procalcitonin (0.02-0.09) ng/mL Crossmatch 07/23/19 Range/Units 05:55 WBC (3.8-10.6) k/uL RBC (4.30-5.90) m/uL Hgb (13.0-17.5) gm/dL Hct (39.0-53.0) % Plt Count (150-450) k/uL Neutrophils # (Manual) (1.3-7.7) k/uL Monocytes # (Manual) (0-1.0) k/uL Myelocytes # (Manual) (0) k/uL Carbon Dioxide (22-30) mmol/L BUN (9-20) mg/dL Creatinine (0.66-1.25) mg/dL Glucose (74-99) mg/dL POC Glucose (mg/dL) 120 H (75-99) mg/dL Calcium (8.4-10.2) mg/dL Iron (65-175) ug/dL TIBC (228-460) ug/dL AST (17-59) U/L ALT (4-49) U/L Alkaline Phosphatase (38-126) U/L Total Protein (6.3-8.2) g/dL Albumin (3.5-5.0) g/dL Procalcitonin (0.02-0.09) ng/mL Crossmatch Microbiology - Last 24 Hours (Table) 07/19/19 10:20 Blood Culture - Preliminary Blood No Growth after 72 hours Assessment and Plan Plan: 1 Gallstone pancreatitis, improving. The patient also has an acute cholecystitis with cholelithiasis. The common bile duct was within normal limit s. ERCPs and currently the patient is post open cholecystectomy and the patient is postop day #6. Currently remains on a combination of IV cefepime and Flagyl. vancomycin 1 dose was given due to concerns of sepsis. The blood cultures came back negative. He has an old triple lumen catheter in his left IJ and a recently inserted hemodialysis catheter in his right femoral vein. 2 severe pancreatitis, improving, amylase and lipase is improved. the amylase and lipase is improved and the patient will be started on enteral feeding via NG tube, The patient is tolerating her tube feeds and this will be advanced 3 acute hypoxic respiratory failure with development of pulmonary edema and pleural effusions, extubated and the patient has small residual pleural effusion lung bases more so on the left 4 acute kidney injury currently on hemodialysis, daily ultrafiltration of 3-4 L of being performed 5 fever, leukocytosis andhypotension, on pressorst a lower dose. Rule out developing infection/sepsis. Blood cultures of been sent. We'll add vancomycin. The patient's fever defervesced. his white cell count remains elevated. Prothrombin is elevated however he has renal failure. He has a low- grade fever. 's and O's. I think it's reasonable to consider removing the left triple-lumen catheter today and sent to culture. His peripheral lines for the next 24 hours. Send another set of blood cultures. 6 alcoholism 7 smoker 8 hypertension history of 9 bilateral hearing loss 10 hyperphosphatemia, improving 11 leukocytosis, secondary to sepsis, white cell count is at 31, check pro- calcitonin levelsis elevated 12 TPN for nutritional support, discontinued and the patient was switched to enteral feeding for nutritional support 13 open cholecystectomy, postop day #6 14 thrombocytopenia, platelet counts improving Plan Keep on 5 L of oxygen by nasal cannula Complete hemodialysis Continue cefepime Flagyl and the patient received a dose of vancomycin. I'm going to remove the triple-lumen catheter and keep him only on peripheral lines. Hemodialysis catheter present with pressure inserted. Repeat blood cultures. Monitor fever pattern Monitor white cell count Check pro-calcitonin level s elevated and there is concern of an underlying infection specially with a low-grade fever and leukocytosis Incision is dry clean and intact advance the tube feeds to goal Monitor urine output Daily hemodialysis He is profoundly weak and has some residual encephalopathy which is gradually improving as the patient was taken off sedation and is being dialyzed on a daily basis. I think this is a drug induced/metabolic encephalopathy which ultimately improved. Condition is still critical. We'll keep in ICU. We'll continue to follow. This evaluation was done and more than 30 minutes. Time with Patient: Greater than 30
[2019-07-23 11:22] LABS: Glucose,Whole Blood 137 mg/dL (75-99)
--- NOTE | 2019-07-23 11:35 | P.PN ---
Subjective Progress Note Date: 07/23/19 Patient seen and examined today. Dialysis catheter functioned well yesterday. Still with leukocytosis. with continued leukocytosis, would favor maintaining femoral catheter at this time rather than placing tunneled dialysis catheter. This is discussed with critical care who plans to remove the left IJ central line. We'll be available to place a tunneled catheter when infectious source is ruled out. Objective - Vital Signs Vital signs: Vital Signs Temp 98.8 F 07/23/19 04:01 Pulse 114 H 07/23/19 07:00 Resp 27 H 07/23/19 07:00 BP 125/77 07/23/19 07:00 Pulse Ox 96 07/23/19 07:00 Intake & Output 07/22/19 07/23/19 07/23/19 18:59 06:59 18:59 Intake Total 667 762 36 Output Total 325 415 60 Balance 342 347 -24 Weight 136.8 kg Intake: IV 317 512 26 0.9 220 20 0.9 pressure bags 72 72 6 Cefepime 1 gm In Sodium 100 Chloride 0.9% 50 ml @ 100 mls/hr IVPB Q24H [facility] Rx# :[id number] Sodium Chloride 0.9% 1, 245 20 000 ml @ 30 mls/hr IV . Q24H [facility] Rx#:[id number] metroNIDAZOLE-NS PMX 500 100 mg In Saline 1 100ml.bag @ 100 mls/hr IVPB Q8HR [facility] Rx#:[id number] Oral 10 Tube Feeding 30 160 10 Blood Product 310 Rc As-3 Unit 310 [id number] Other 90 Output: Drainage 90 70 Right Abdomen 90 70 Urine 235 345 60 Other: Voiding Method Indwelling Catheter Indwelling Catheter ABP, PAP, CO, CI - Last Documented Arterial Blood Pressure 126/67 - Labs CBC & Chem 7: 07/23/19 05:02 07/23/19 05:02 Labs: Abnormal Lab Results - Last 24 Hours (Table) 07/22/19 07/22/19 07/22/19 Range/Units 05:15 05:15 14:13 WBC (3.8-10.6) k/uL RBC (4.30-5.90) m/uL Hgb (13.0-17.5) gm/dL Hct (39.0-53.0) % Plt Count (150-450) k/uL Neutrophils # (Manual) (1.3-7.7) k/uL Monocytes # (Manual) (0-1.0) k/uL Myelocytes # (Manual) (0) k/uL Carbon Dioxide (22-30) mmol/L BUN (9-20) mg/dL Creatinine (0.66-1.25) mg/dL Glucose (74-99) mg/dL POC Glucose (mg/dL) 127 H (75-99) mg/dL Calcium (8.4-10.2) mg/dL Iron 51 L (65-175) ug/dL TIBC 153 L (228-460) ug/dL AST (17-59) U/L ALT (4-49) U/L Alkaline Phosphatase (38-126) U/L Total Protein (6.3-8.2) g/dL Albumin (3.5-5.0) g/dL Procalcitonin 2.25 H (0.02-0.09) ng/mL 07/22/19 07/22/19 07/23/19 Range/Units 17:24 17:30 00:10 WBC 33.1 H (3.8-10.6) k/uL RBC 2.41 L (4.30-5.90) m/uL Hgb 7.5 L (13.0-17.5) gm/dL Hct 22.3 L (39.0-53.0) % Plt Count (150-450) k/uL Neutrophils # (Manual) (1.3-7.7) k/uL Monocytes # (Manual) (0-1.0) k/uL Myelocytes # (Manual) (0) k/uL Carbon Dioxide (22-30) mmol/L BUN (9-20) mg/dL Creatinine (0.66-1.25) mg/dL Glucose (74-99) mg/dL POC Glucose (mg/dL) 134 H 139 H (75-99) mg/dL Calcium (8.4-10.2) mg/dL Iron (65-175) ug/dL TIBC (228-460) ug/dL AST (17-59) U/L ALT (4-49) U/L Alkaline Phosphatase (38-126) U/L Total Protein (6.3-8.2) g/dL Albumin (3.5-5.0) g/dL Procalcitonin (0.02-0.09) ng/mL 07/23/19 07/23/19 07/23/19 Range/Units 05:02 05:02 05:55 WBC 30.7 H (3.8-10.6) k/uL RBC 2.36 L (4.30-5.90) m/uL Hgb 7.3 L (13.0-17.5) gm/dL Hct 21.8 L (39.0-53.0) % Plt Count 510 H (150-450) k/uL Neutrophils # (Manual) 26.40 H (1.3-7.7) k/uL Monocytes # (Manual) 1.84 H (0-1.0) k/uL Myelocytes # (Manual) 0.31 H (0) k/uL Carbon Dioxide 16 L (22-30) mmol/L BUN 116 H* (9-20) mg/dL Creatinine 7.00 H (0.66-1.25) mg/dL Glucose 112 H (74-99) mg/dL POC Glucose (mg/dL) 120 H (75-99) mg/dL Calcium 7.8 L (8.4-10.2) mg/dL Iron (65-175) ug/dL TIBC (228-460) ug/dL AST 66 H (17-59) U/L ALT 56 H (4-49) U/L Alkaline Phosphatase 223 H (38-126) U/L Total Protein 4.9 L (6.3-8.2) g/dL Albumin 2.6 L (3.5-5.0) g/dL Procalcitonin (0.02-0.09) ng/mL 07/23/19 Range/Units 11:19 WBC (3.8-10.6) k/uL RBC (4.30-5.90) m/uL Hgb (13.0-17.5) gm/dL Hct (39.0-53.0) % Plt Count (150-450) k/uL Neutrophils # (Manual) (1.3-7.7) k/uL Monocytes # (Manual) (0-1.0) k/uL Myelocytes # (Manual) (0) k/uL Carbon Dioxide (22-30) mmol/L BUN (9-20) mg/dL Creatinine (0.66-1.25) mg/dL Glucose (74-99) mg/dL POC Glucose (mg/dL) 137 H (75-99) mg/dL Calcium (8.4-10.2) mg/dL Iron (65-175) ug/dL TIBC (228-460) ug/dL AST (17-59) U/L ALT (4-49) U/L Alkaline Phosphatase (38-126) U/L Total Protein (6.3-8.2) g/dL Albumin (3.5-5.0) g/dL Procalcitonin (0.02-0.09) ng/mL Microbiology - Last 24 Hours (Table) 07/19/19 10:20 Blood Culture - Preliminary Blood No Growth after 72 hours
[2019-07-23] MEDS ORDERED: HEPARIN SODIUM,PORCINE 5,000 UNIT/ML 1 ML VIAL ONE (12:00)
[2019-07-23] MEDS: PANTOPRAZOLE 40 MG/10 ML VIAL IV SCH (12:33)
--- NOTE | 2019-07-23 14:17 | P.PN ---
Progress Note - Text Progress Note Date: 07/23/19 the patient is confused. He still has a metabolic encephalopathy. He is currently receiving dialysis. On exam his vital signs appear stable. His abdomen is soft. Incision sites clean and intact. MARICHUY drain has mainly serosanguineous drainage. Liver function tests are improving. The patient will increase his tube feeding diet. We will continue supportive care.
[2019-07-23 17:27] LABS: Glucose,Whole Blood 126 mg/dL (75-99)
[2019-07-23] MEDS: NOREPINEPHRINE 32 MG in SODIUM CHLORIDE 0.9% 218 ML IV SCH (18:40)
--- NOTE | 2019-07-23 21:21 | P.PN ---
Progress Note - Text Progress Note Date: 07/23/19 interval history: This is a pleasant 54-year-old Patient of Dr. Malloy. Patient for about 2 y ears has had episodes of upper abdominal epigastric pain lasted for about half an hour. Started off about 2 years ago when he states the frequency is increased. More so frequently in the last 2 weeks. yesterday morning patient became rather severe. Epigastric. Started having nausea vomiting. Had fever or chills. Also been getting heartburn. Patient drinks about 12 beers over the weekend. Otherwise in good health. Admitted with-acute cholecystitis with choledocholithiasis, acute gallstone pancreatitis. patient clinically deteriorated and was transferred to the ICU on July 13. Patient intubated.went into renal failure. Started with hemodialysis. Patient underwent open cholecystectomy with gallstone removal on 07/17/2019. extubated July 21. Today-ICU. slightly more awake. We'll still encephalopathic. Getting hemodialyzed today. 4 L removed. On nasal cannula 3 L. On tube feeding. MARICHUY drain put out 70 mL in the last 12 hour shift. Patient has been after levo fed. Patient's brother and. As per the bedside.patient was pancultured Review of systems: patient is lethargic Active Medications Acetaminophen (Tylenol Tab) 650 mg PO Q4HR PRN PRN Reason: Fever and/or Mild Pain Last Admin: 07/21/19 04:04 Dose: 650 mg Documented by: Albuterol/Ipratropium (Duoneb 0.5 Mg-3 Mg/3 Ml Soln) 3 ml INHALATION RT-QID [facility] Last Admin: 07/23/19 20:47 Dose: 3 ml Documented by: Albuterol/Ipratropium (Duoneb 0.5 Mg-3 Mg/3 Ml Soln) 3 ml INHALATION RT-Q2H PRN PRN Reason: Shortness Of Breath Or Wheezing Calcium Acetate (Phoslo) 667 mg PO TID-W/MEALS [facility] Last Admin: 07/23/19 17:40 Dose: 667 mg Documented by: Darbepoetin Mj (Aranesp) 12.5 mcg SQ Q7D [facility] Last Admin: 07/22/19 16:53 Dose: 12.5 mcg Documented by: Heparin Sodium (Porcine) (Heparin) 5,000 unit SQ Q8HR [facility] Last Admin: 07/23/19 17:40 Dose: 5,000 unit Documented by: Hydromorphone HCl (Dilaudid) 2 mg IVP Q2H PRN PRN Reason: Moderate Pain Last Admin: 07/22/19 03:30 Dose: 2 mg Documented by: Metronidazole 500 mg/ IV (Solution) 100 mls @ 100 mls/hr IVPB Q8HR [facility] Last Admin: 07/23/19 17:40 Dose: 100 mls/hr Documented by: Cefepime HCl 1 gm/ Sodium (Chloride) 50 mls @ 100 mls/hr IVPB Q24H [facility] Last Admin: 07/23/19 02:22 Dose: 100 mls/hr Documented by: Norepinephrine Bitartrate 32 (mg/ Sodium Chloride) 250 mls @ 3.253 mls/hr IV .Q24H [facility]; Protocol Last Admin: 07/23/19 18:40 Dose: Not Given Documented by: Insulin Aspart (Novolog) 0 unit SQ Q6H [facility]; Protocol Last Admin: 07/23/19 17:59 Dose: Not Given Documented by: Miscellaneous Information (Pharmacy To Dose Iv Vancomycin) 1 each MISCELLANE DIRECTED PRN PRN Reason: Per Protocol Naloxone HCl (Narcan) 0.2 mg IV Q2M PRN PRN Reason: Opioid Reversal Ondansetron HCl (Zofran) 4 mg IVP Q8HR PRN PRN Reason: Nausea And Vomiting Pantoprazole Sodium (Protonix) 40 mg IV DAILY [facility] Last Admin: 07/23/19 12:33 Dose: 40 mg Documented by: Physical examination: VITAL SIGNS: T-max 100.1, 118, 14, 82/52, 93% on 3 L nasal cannula GENERAL: laying in bed, still lethargic, little better than yesterday EYES: Pupils equal. Conjunctiva normal. HEENT: External appearance of nose and ears normal, oral cavity grossly normal., O G-tube NECK: JVD unable to assess, masses not palpable. HEART: First and second heart sounds are normal; no edema. LUNGS: Respiratory rate increased, decreased breath sounds. ABDOMEN: Soft, dressing over the incision, MARICHUY drain is present.-With serosanguineous output PSYCH: Lethargic NEUROLOGICAL: Does move all limbs, still lethargic, following some commands INVESTIGATIONS, reviewed in the clinical context: white count 30.7 hemoglobin 7.3 potassium 4.6 bun 116 creatinine 7 Previous testing White count 13 hemoglobin 18.4 pressures 59 progression 4.3 crit 1.16 Total bilirubin 2.9 AST 440 ALT 574 Amylase 2794, lipase greater than 20,000 Computed tomography scan-moderate peripancreatic fat stranding, gallstones and a distended gallbladder with gallbladder wall thickening. Abdominal ultrasound-gallbladder thickening with intermittent small stones. Pericholecystic fluid EKG tracing-personally reviewed by me shows normal sinus rhythm nonspecific T- wave changes blood culture and sputum culture both negative Assessment: -Acute cholecystitis secondary to choledocholithiasis, with possible ascending cholangitis,causing sepsis, status post open cholecystectomy on July 17. -Acute postprocedure blood loss anemia as expected from surgery, patient is also having serosanguineous drainage from the MARICHUY drain -Acute gallstone pancreatitis, , improved -Acute renal failure, likely ATN from hepatorenal, , started on renal replacement therapy on July 15, slow to respond -Essential hypertension -Septic and hypovolemic shock, requiring pressure support, back on levo fed -Obesity BMI 34.4 -Hyperkalemia in a patient does take LORENA inhibitor's the setting of renal failure -Severe metabolic acidosis with lactic acidosis -Acute hypoxic severe respiratory failure secondary to noncardiogenic pulmonary edema status post ventilator support, extubated on July 21 -Symptomatic anemia from blood loss from the MARICHUY drain -Hypoalbuminemia, acute phase reactant Plan: continue current medication treatment plan. continue with antibiotics. Patient was pancultured. We'll change the vancomycin to daptomycin.patient being followed by pulmonary, Gen. surgery, nephrology. Will get ID consult. Care was discussed with family the bedside. Follow electrolytes CBC closely.
[2019-07-23 23:53] LABS: Glucose,Whole Blood 137 mg/dL (75-99)
[2019-07-24] MEDS: INSULIN ASPART (NovoLOG) 100 UNIT/ML VIAL SQ SCH ×4 (00:09→18:38)
[2019-07-24] MEDS: HEPARIN SODIUM,PORCINE 5,000 UNIT/ML 1 ML VIAL SQ SCH ×3 (00:11→16:50)
[2019-07-24] MEDS: metroNIDAZOLE-NS PMX 500 MG in SALINE 1 100ML.BAG IVPB SCH ×3 (00:11→16:50)
[2019-07-24] MEDS: CEFEPIME 1 GM in SODIUM CHLORIDE 0.9% 50 ML IVPB SCH (04:09)
[2019-07-24 05:56] LABS: HCT 22.4 % (39.0-53.0); HGB 7.3 gm/dL (13.0-17.5); Hypochromasia Slight; MCH 31.6 pg (25.0-35.0); MCHC 32.7 g/dL (31.0-37.0); MCV 96.4 fL (80.0-100.0); Mean Platelet Volume 9.1; Platelet Count 426 k/uL (150-450); RBC 2.33 m/uL (4.30-5.90); RDW 14.5 % (11.5-15.5); WBC 32.9 k/uL (3.8-10.6)
[2019-07-24 06:04] LABS: Calcium 8.3 mg/dL (8.4-10.2); Total Bilirubin 0.9 mg/dL (0.2-1.3); Total Protein 5.5 g/dL (6.3-8.2)
[2019-07-24 06:10] LABS: Vancomycin,Random 17.2 ug/mL
[2019-07-24 06:14] LABS: Glucose,Whole Blood 131 mg/dL (75-99)
[2019-07-24 06:15] LABS: Band Neutrophils % 2 %; Eosinophils # (M) 0.33 k/uL (0-0.7); Lymphocytes # (M) 1.65 k/uL (1.0-4.8); Monocytes # (M) 0.66 k/uL (0-1.0); Myelocytes # (M) 0.66 k/uL (0); Myelocytes % 2 %; Neutrophils % (M) 89 %; Nucleated Red Blood Cells 0 /100 WBC (0-0); Total Cells Counted 200
[2019-07-24] MEDS: CALCIUM ACETATE 667 MG TAB PO SCH ×3 (06:17→16:51)
[2019-07-24] MEDS: IPRATROPIUM-ALBUTEROL 3 ML NEB INHALATION SCH ×4 (07:47→18:50)
--- NOTE | 2019-07-24 08:12 | XR ---
EXAMINATION TYPE: XR chest 1V portable DATE OF EXAM: 07/24/2019 COMPARISON: Prior chest x-ray 07/23/2019 HISTORY: Abnormal chest x-ray, ICU management TECHNIQUE: Single frontal view of the chest is obtained. FINDINGS: NG tube is coiled in the left upper quadrant, distal tip not included on the exam. The lef t jugular central venous catheter has been removed. Bibasilar increased density persists, lung volume s are low. No evident pneumothorax. Heart size is likely stable. There are overlying cardiac leads. IMPRESSION: Interval removal of the central venous catheter. Probable subsegmental basilar atelectat ic changes versus pneumonia or edema, possible associated effusions.
[2019-07-24] MEDS ORDERED: VANCOMYCIN 2,250 MG in SODIUM CHLORIDE 0.9% 500 ML 500 ML IVPB ONE (10:00)
[2019-07-24] MEDS ORDERED: HEPARIN SODIUM 1,000 UN/ML (10ML VL) ONE (12:00)
[2019-07-24 12:03] LABS: Glucose,Whole Blood 123 mg/dL (75-99)
[2019-07-24] MEDS: NOREPINEPHRINE 32 MG in SODIUM CHLORIDE 0.9% 218 ML IV SCH (12:13)
[2019-07-24] MEDS: PANTOPRAZOLE 40 MG/10 ML VIAL IV SCH (13:10)
--- NOTE | 2019-07-24 13:31 | PN ---
PROGRESS NOTE The patient is seen for followup for acute kidney injury. Currently patient is awake. He is seen on dialysis. He is extubated. PHYSICAL EXAMINATION: On examination this morning blood pressure was 126/73, heart rate was 116 per minute, patient is afebrile. Urine output remains low at about 20 to 25 mL an hour. Patient is afebrile. EXAMINATION OF THE HEART: S1, S2. EXAMINATION OF THE LUNGS: Decreased breath sounds at the bases. ABDOMEN: Soft, distended, tender. Examination of lower extremities shows edema 2+ bilaterally. WARE CLEANER exam shows patient has been moving all extremities. LABS: Labs show sodium and the sodium of 141, potassium 5.0, chloride 106, CO2 is 18, BUN 119, creatinine 7.12, calcium 8.3, albumin 3.0, hemoglobin 7.3 g/dL. ASSESSMENT: 1. Acute kidney injury, acute tubular necrosis, nonoliguric, but dialysis dependent, being dialyzed on a daily basis. 2. Severe pancreatitis, currently improved. 3. Volume overload, slowly improving. 4. Metabolic acidosis, expect further improvement post dialysis. 5. Severe anemia with no active bleeding noted, iron replete. PLAN: [facility] with the [facility]. Hemodialysis today and then again in a.m. also arrange for outpatient placement as patient continues to be hemodialysis dependent. MMODL / IJN: [id number] /
--- NOTE | 2019-07-24 14:03 | P.PN ---
Subjective Progress Note Date: 07/24/19 Principal diagnosis: Acute gallstone pancreatitis On 07/23/2019 the patient is postop day #6 the patient underwent open cholecystectomy for gallstone pancreatitis and the patient multisystem organ failure. I was able to extubate the patient. As a complication of hisdisease the patient developed an acute kidney injury. Is currently on hemodialysis on a daily basis. A total of 4 L of fluid was ultrafiltrate yesterday. His urine output has improved and the patient is producing around 15-20 mL an hour of urine output. He is currently undergoing dialysis and the goal is to ultrafiltrate him for another 4 L today. Chest x-ray shows small bilateral pleural effusion slightly worse on the left. NG tube is in place. He is receiving enteral feeding for nutritional support. He was able to tolerate that. He is admitted intensive an hour of vital high protein. No fever. No chills. No aspiration. This surgical wound site is dry clean and intact. MARICHUY drain is in place. He is still on a combination of antibiotics utilizing cefepime and Flagyl. White cell count remains elevated at 30. The pro- calcitonin level was sent and the level was at 2.25. As such, there is an underlying concern for sepsis. I was concerned about underlying infection. I added vancomycin to his regimen. Nevertheless the cultures are negative. The catheter is obviously new within the patient has a right femoral hemodialysis catheter that was inserted 2 days ago and he has a left IJ triple-lumen catheter was inserted on 07/13/2019 He is slightly tachycardic. He is having a low-g rade fever of 100.1 On 07/24/2019, patient is now postoperative day #7. He is status post open cho lecystectomy for gallstone pancreatitis. And he developed multisystem organ failure. Patient was eventually extubated, however his overall status remains very marginal. Patient is on 3 L nasal cannula, receiving hemodialysis and ultrafiltration. Chest x-ray showed mostly bibasilar atelectasis and small bilateral pleural effusions. Underlying pneumonia is not entirely ruled out, felt to be less likely. Patient seems to be nonverbal. And has been as such since admission, mental status is questionable, hence I recommended neurology evaluation. WBC count today is 32.9 hemoglobin is 7.3. Blood cultures have been negative on along. Catheter tip cultures are pending. Patient remains on vancomycin. He is also on metronidazole. Transaminases were relatively a bit elevated. BUN is 119 creatinine is 7.12 today Objective - Vital Signs Vital signs: Vital Signs Temp 98.5 F 07/24/19 12:00 Pulse 114 H 07/24/19 13:00 Resp 16 07/24/19 13:00 BP 89/45 07/24/19 13:00 Pulse Ox 97 07/24/19 13:00 Intake & Output 07/23/19 07/24/19 07/24/19 18:59 06:59 18:59 Intake Total 640 510 980 Output Total 218 287 90 Balance 422 223 890 Weight 136.8 kg 126.6 kg Intake: IV 430 210 170 0.9 170 110 70 0.9 pressure bags 60 Cefepime 1 gm In Sodium 100 Chloride 0.9% 50 ml @ 100 mls/hr IVPB Q24H [facility] Rx# :[id number] metroNIDAZOLE-NS PMX 500 200 100 mg In Saline 1 100ml.bag @ 100 mls/hr IVPB Q8HR [facility] Rx#:[id number] Intake, IV Titration 500 Amount Vancomycin 2,250 mg In 500 Sodium Chloride 0.9% 500 ml 500 ml @ 167 mls/hr IVPB ONCE ONE Rx#: [id number] Tube Feeding 120 210 220 Other 90 90 90 Output: Drainage 50 50 Right Abdomen 50 50 Urine 168 237 90 Other: Voiding Method Indwelling Catheter Indwelling Catheter Indwelling Catheter ABP, PAP, CO, CI - Last Documented Arterial Blood Pressure 96/53 - Exam GENERAL: Revealed a 54-year-old white male, lethargic, arousable, nonverbal. Head: Atraumatic, normocephalic. HEENT:: PERRLA, EOMI, neck disc, dry mucous membranes. NECK: No neck masses no JVD no stridor HEART: Normal S1 and S2, no S3 gallop. LUNGS: Diminished breath sounds and crackles at the bases no rhonchi and no wheezes. ABDOMEN: The abdomen was soft, non-tender, and without masses, organomegaly, or appreciable enlargement of the abdominal aorta.Bowel sounds are hypoactive at this point in time. No direct tenderness or rebound tenderness or guarding. No ascites.the patient has an incision in the right upper quadrant and the incision site is dry clean and intact and the patient has a MARICHUY drain in the right upper quadrant also. Bowel sounds are hypoactive. No direct tenderness. No rebound tenderness. No guarding. Scrotal edema. PSYCH: Nonverbal, lethargic, blunt affect, depressed mood. Questionable mental status. NEUROLOGICAL: Lethargic, nonverbal, follows simple instructions, poor insight and judgment. - Labs CBC & Chem 7: 07/24/19 05:37 07/24/19 05:37 Labs: Abnormal Lab Results - Last 24 Hours (Table) 07/23/19 07/23/19 07/24/19 Range/Units 17:26 23:52 05:37 WBC (3.8-10.6) k/uL RBC (4.30-5.90) m/uL Hgb (13.0-17.5) gm/dL Hct (39.0-53.0) % Neutrophils # (Manual) (1.3-7.7) k/uL Myelocytes # (Manual) (0) k/uL Carbon Dioxide 18 L (22-30) mmol/L BUN 119 H* (9-20) mg/dL Creatinine 7.12 H* (0.66-1.25) mg/dL Glucose 128 H (74-99) mg/dL POC Glucose (mg/dL) 126 H 137 H (75-99) mg/dL Calcium 8.3 L (8.4-10.2) mg/dL AST 66 H (17-59) U/L ALT 61 H (4-49) U/L Alkaline Phosphatase 219 H (38-126) U/L Total Protein 5.5 L (6.3-8.2) g/dL Albumin 3.0 L (3.5-5.0) g/dL 07/24/19 07/24/19 07/24/19 Range/Units 05:37 06:13 12:01 WBC 32.9 H (3.8-10.6) k/uL RBC 2.33 L (4.30-5.90) m/uL Hgb 7.3 L (13.0-17.5) gm/dL Hct 22.4 L (39.0-53.0) % Neutrophils # (Manual) 29.90 H (1.3-7.7) k/uL Myelocytes # (Manual) 0.66 H (0) k/uL Carbon Dioxide (22-30) mmol/L BUN (9-20) mg/dL Creatinine (0.66-1.25) mg/dL Glucose (74-99) mg/dL POC Glucose (mg/dL) 131 H 123 H (75-99) mg/dL Calcium (8.4-10.2) mg/dL AST (17-59) U/L ALT (4-49) U/L Alkaline Phosphatase (38-126) U/L Total Protein (6.3-8.2) g/dL Albumin (3.5-5.0) g/dL Microbiology - Last 24 Hours (Table) 07/23/19 10:17 Blood Culture - Preliminary Blood No Growth after 24 hours 07/23/19 10:40 Blood Culture - Preliminary Blood No Growth after 24 hours 07/23/19 10:17 Blood Culture - Final Blood 07/24/19 00:00 Urine Culture - Preliminary Urine,Catheterized 07/23/19 17:00 Catheter Tip Culture - Preliminary Catheter Tip 07/23/19 17:10 Catheter Tip Culture - Preliminary Catheter Tip 07/19/19 10:20 Blood Culture - Preliminary Blood No Growth after 96 hours Assessment and Plan Assessment: Impression: Acute gallstone pancreatitis. Status post open cholecystectomy and he is postoperative day #7. Severe pancreatitis, improving since surgery however the patient developed multiorgan system failure. Extubated by Dr. Rowland, however his overall pulmonary status is marginal Acute hypoxic respiratory failure secondary to pulmonary edema and pleural effusions secondary to pancreatitis and acute renal failure. Acute kidney injury requiring hemodialysis and he continues to require dialysis on a daily basis. Fever and leukocytosis with hypotension, suggestive of sepsis, patient was placed on vancomycin by Dr. Rowland, cultures are pending. However negative so far. His central line catheter was removed and the cultures are pending. History of alcoholism. History of hypertension. Bilateral hearing loss. Leukocytosis most likely secondary to sepsis. Suspect metabolic encephalopathy. Possibly metabolic or drug-induced in nature. Recommendation: Continue to monitor in the ICU. Continue oxygen presently at 3 L nasal cannula. Continue broad-spectrum antibiotics coverage, patient is now on Flagyl, cefepime and vancomycin. Cultures are pending but negative so far. Continue to monitor electrolytes. Continue hemodialysis. Continue GI and DVT prophylaxis. Advance tube feedings to goal. Neurological consultation to evaluate for encephalopathy, Will follow. Prognosis is still guarded. Time with Patient: Less than 30
--- NOTE | 2019-07-24 14:34 | P.PN ---
Subjective covering Dr. Lopez starting 07/24/2019 This is a pleasant 54-year-old Patient of Dr. Malloy. with past medical history of hypertension and hearing difficulty. Presents with upper abdominal epigastric pain found to have acute pancreatitis secondary to acute cholecystitis with choledocholithiasis. He is status post cholecystectomy on and 07/17. Also patientwas in acute kidney injury and renal failure and eventually needed hemodialysis which is undergoing currently and acute hypoxic respiratory failure status post temporal intubation and extubation. Sepsis is also suspected that's why patient was started on antibiotics and currently is on cefepime and Flagyl. patient remains in the ICU and confused although at times he can wake up and talk with some sentences. However when I saw the patient he was still confused and currently waking up for verbal and tactile stimuli.vitals showing tachycardia with heart rate 114-120. he is saturating 93% on 3 L oxygen.Blood pressure 105/59.patient labs showed leukocytosis of 30 2.9K. Hemoglobin stable at 7.3.liver enzymes are slightly elevated. Review of system: N/a Active Medications Generic Name Dose Route Start Last Admin Trade Name Freq PRN Reason Stop Dose Admin Acetaminophen 650 mg 07/13/19 04:19 07/21/19 04:04 Tylenol Tab PO 650 mg Q4HR PRN Administration Fever and/or Mild Pain Albuterol/Ipratropium 3 ml 07/23/19 08:00 07/24/19 11:41 Duoneb 0.5 Mg-3 Mg/3 Ml Soln INHALATION 3 ml RT-QID OBEY Administration Albuterol/Ipratropium 3 ml 07/22/19 23:18 Duoneb 0.5 Mg-3 Mg/3 Ml Soln INHALATION RT-Q2H PRN Shortness Of Breath Or Wheezing Calcium Acetate 667 mg 07/20/19 12:30 07/24/19 13:10 Phoslo PO 667 mg TID-W/MEALS OBEY Administration Darbepoetin Mj 12.5 mcg 07/22/19 14:00 07/22/19 16:53 Aranesp SQ 12.5 mcg Q7D OBEY Administration Heparin Sodium (Porcine) 5,000 unit 07/19/19 16:00 07/24/19 08:32 Heparin SQ 5,000 unit Q8HR [facility]BEY Administration Hydromorphone HCl 2 mg 07/16/19 14:56 07/22/19 03:30 Dilaudid IVP 2 mg Q2H PRN Administration Moderate Pain Metronidazole 500 mg/ IV 100 mls @ 100 mls/hr 07/11/19 08:00 07/24/19 08:32 Solution IVPB 100 mls/hr Q8HR OBEY Administration Cefepime HCl 1 gm/ Sodium 50 mls @ 100 mls/hr 07/13/19 02:00 07/24/19 04:09 Chloride IVPB 100 mls/hr Q24H [facility] Administration Norepinephrine Bitartrate 32 250 mls @ 3.253 mls/hr 07/14/19 13:15 07/24/19 12:13 mg/ Sodium Chloride IV Not Given .Q24H [facility] Protocol 0.05 MCG/KG/MIN Insulin Aspart 0 unit 07/20/19 00:00 07/24/19 12:12 Novolog SQ Not Given Q6H [facility] Protocol Miscellaneous Information 1 each 07/20/19 13:33 Pharmacy To Dose Iv Vancomycin MISCELLANE DIRECTED PRN Per Protocol Naloxone HCl 0.2 mg 07/11/19 07:53 Narcan IV Q2M PRN Opioid Reversal Ondansetron HCl 4 mg 07/11/19 07:53 Zofran IVP Q8HR PRN Nausea And Vomiting Pantoprazole Sodium 40 mg 07/13/19 09:00 07/24/19 13:10 Protonix IV 40 mg DAILY OBEY Administration Objective - Vital Signs Vital signs: Vital Signs Temp 98.5 F 07/24/19 12:00 Pulse 120 H 07/24/19 14:00 Resp 21 07/24/19 14:00 BP 105/59 07/24/19 14:21 Pulse Ox 95 07/24/19 14:00 Intake & Output 07/23/19 07/24/19 07/24/19 18:59 06:59 18:59 Intake Total 568 896 8635 Output Total 899 975 2029 Balance 422 223 -1140 Weight 136.8 kg 126.6 kg Intake: IV 430 210 180 0.9 170 110 80 0.9 pressure bags 60 Cefepime 1 gm In Sodium 100 Chloride 0.9% 50 ml @ 100 mls/hr IVPB Q24H [facility] Rx# :[id number] metroNIDAZOLE-NS PMX 500 200 100 mg In Saline 1 100ml.bag @ 100 mls/hr IVPB Q8HR [facility] Rx#:[id number] Intake, IV Titration 500 Amount Vancomycin 2,250 mg In 500 Sodium Chloride 0.9% 500 ml 500 ml @ 167 mls/hr IVPB ONCE ONE Rx#: [id number] Tube Feeding 120 210 250 Other 90 90 90 Output: Drainage 50 50 70 Right Abdomen 50 50 70 Urine 168 237 90 Hemodialysis 2000 Other: Voiding Method Indwelling Catheter Indwelling Catheter Indwelling Catheter ABP, PAP, CO, CI - Last Documented Arterial Blood Pressure 96/53 - Exam -GENERAL: The patient is confused HEENT: Pupils are round and equally reacting to light. EOMI. No scleral icterus. No conjunctival pallor. Normocephalic, atraumatic. No pharyngeal erythema. No thyromegaly. CARDIOVASCULAR: S1 and S2 present. No murmurs, rubs, or gallops. PULMONARY: Chest is clear to auscultation, no wheezing or crackles. -ABDOMEN: Soft, nontender, nondistended, normoactive bowel sounds. No palpable organomegaly. right surgical wound is closed with dressing is in place. MARICHUY drain is in place with serosanguineous drainage. Left femoral catheter. MUSCULOSKELETAL: No joint swelling or deformity. EXTREMITIES: No cyanosis, clubbing, or pedal edema. NEUROLOGICAL: Gross neurological examination did not reveal any focal deficits. SKIN: No rashes. no petechiae. - Labs CBC & Chem 7: 07/24/19 05:37 07/24/19 05:37 Labs: Abnormal Lab Results - Last 24 Hours (Table) 07/23/19 07/23/19 07/24/19 Range/Units 17:26 23:52 05:37 WBC (3.8-10.6) k/uL RBC (4.30-5.90) m/uL Hgb (13.0-17.5) gm/dL Hct (39.0-53.0) % Neutrophils # (Manual) (1.3-7.7) k/uL Myelocytes # (Manual) (0) k/uL Carbon Dioxide 18 L (22-30) mmol/L BUN 119 H* (9-20) mg/dL Creatinine 7.12 H* (0.66-1.25) mg/dL Glucose 128 H (74-99) mg/dL POC Glucose (mg/dL) 126 H 137 H (75-99) mg/dL Calcium 8.3 L (8.4-10.2) mg/dL AST 66 H (17-59) U/L ALT 61 H (4-49) U/L Alkaline Phosphatase 219 H (38-126) U/L Total Protein 5.5 L (6.3-8.2) g/dL Albumin 3.0 L (3.5-5.0) g/dL 07/24/19 07/24/19 07/24/19 Range/Units 05:37 06:13 12:01 WBC 32.9 H (3.8-10.6) k/uL RBC 2.33 L (4.30-5.90) m/uL Hgb 7.3 L (13.0-17.5) gm/dL Hct 22.4 L (39.0-53.0) % Neutrophils # (Manual) 29.90 H (1.3-7.7) k/uL Myelocytes # (Manual) 0.66 H (0) k/uL Carbon Dioxide (22-30) mmol/L BUN (9-20) mg/dL Creatinine (0.66-1.25) mg/dL Glucose (74-99) mg/dL POC Glucose (mg/dL) 131 H 123 H (75-99) mg/dL Calcium (8.4-10.2) mg/dL AST (17-59) U/L ALT (4-49) U/L Alkaline Phosphatase (38-126) U/L Total Protein (6.3-8.2) g/dL Albumin (3.5-5.0) g/dL Microbiology - Last 24 Hours (Table) 07/19/19 10:20 Blood Culture - Preliminary Blood No Growth after 120 hours 07/23/19 10:17 Blood Culture - Preliminary Blood No Growth after 24 hours 07/23/19 10:40 Blood Culture - Preliminary Blood No Growth after 24 hours 07/23/19 10:17 Blood Culture - Final Blood 07/24/19 00:00 Urine Culture - Preliminary Urine,Catheterized 07/23/19 17:00 Catheter Tip Culture - Preliminary Catheter Tip 07/23/19 17:10 Catheter Tip Culture - Preliminary Catheter Tip Assessment and Plan Assessment: gallstone pancreatitis with acute cholecystitis and choledocholithiasis. Status post cholecystectomy Possible sepsis secondary to above Acute hypoxic respiratory failure Acute kidney injury needing hemodialysis Hypertension history of hearing difficulty Plan: this is a pleasant 54 years old male who presents with gallstone pancreatitis status post cholecystectomy. Continue with antibiotics with cefepime and Flagyl.follow-up recommendation by infectious disease. Follow-up recommendation by other consultants including tube handler, surgical service and critical care team Labs and medication were reviewed.. Continue same treatment. Continue with symptomatic treatment. Resume home medication. Monitor lytes and vitals. DVT and GI prophylaxis. Further recommendations of the clinical course of the patient DVT prophylaxis: Subcutaneous heparin GI Prophylaxis: Protonix Prognosis is guarded
--- NOTE | 2019-07-24 15:41 | P.CNNES ---
History of Present Illness Consult date: 07/24/19 Requesting physician: Kiel Neil Reason for Consult: Encephalopathy History of Present Illness: Patient is a 69-year-old male who was admitted to the hospital on 07/11/2019 for 3 days history of abdominal pain. Patient has been complaining of some abdominal discomfort for almost a month prior to admission. Patient in the ER was noted to be tachycardic, tachypneic, hypotensive and was diagnosed with acute pancreatitis, cholecystitis and later developed acute kidney injury. He was intubated on 07/13/2019 and extubated on 07/21/2019. Patient was noted to be somewhat encephalopathic, which prompted this neurology consultation. Patient's current WBC is 32.9, although on admission was 13.0. Patient's hemoglobin on admission was 18.4, but now has dropped to 7.3 as of today. Patient's BUN on admission was 25, gone up to 119, creatinine from 1.16 at baseline to 7.12 now. Patient has been receiving daily hemodialysis for the past 1 week, as per patient's family. Patient also had undergone open cholecystectomy. Patient's liver functions were elevated 574 ALT on admission and now [address] of the abdomen and chest showed moderate peripancreatic fat stranding/fluid, suggestive of acute pancreatitis. Cholelithiasis in a distended gallbladder with gallbladder wall thickening/edema. Patient's parents and were present today. Patient's states that he does not drink alcohol significantly. Maybe drinks on weekends, mixed drink, not excessive, not every day. No history of seizures. Patient is otherwise normal mentally and physically at baseline. No history of diabetes. Review of Systems Patient denies headache. ROS unobtainable: due to mental status Past Medical History Past Medical History: Hearing Disorder / Deafness, Hypertension Additional Past Medical History / Comment(s): HAD A HEART MURMUR WHEN A CHILD- NEVER HEARD ANYTHING AFTER THAT ABOUT IT, SL. HEARLING LOSS YAMILA. EARS History of Any Multi-Drug Resistant Organisms: None Reported Past Surgical History: No Surgical Hx Reported Additional Past Surgical History / Comment(s): Colonoscopy with benign polypectomy Past Anesthesia/Blood Transfusion Reactions: No Reported Reaction Smoking Status: Current some day smoker - Past Family History Father Family Medical History: Coronary Artery Disease (CAD) Additional Family Medical History / Comment(s): Father had 4 vessel CABG Mother Family Medical History: Hypertension Medications and Allergies Home Medications Medication Instructions Recorded Confirmed Type Lisinopril-Hctz 10-12.5 mg 1 tab PO DAILY 05/30/19 07/11/19 History [Zestoretic 10-12.5] Multivitamins, Thera [Multivitamin 1 tab PO DAILY 07/11/19 07/11/19 History (formulary)] Allergies Allergy/AdvReac Type Severity Reaction Status Date / Time amoxicillin Allergy Rash/Hives Verified 07/11/19 08:00 Physical Examination - Vital Signs Vital Signs: Vital Signs Temp Pulse Resp BP BP Pulse Ox 07/24/19 15:23 118 H 95 07/24/19 14:21 105/59 07/24/19 14:00 120 H 21 99/58 95 07/24/19 13:00 114 H 16 89/45 97 07/24/19 12:00 98.5 F 120 H 19 110/58 96 07/24/19 11:53 112 H 07/24/19 11:41 110 H 07/24/19 11:00 126 H 28 H 85/46 95 07/24/19 10:00 121 H 35 H 120/67 95 07/24/19 09:00 116 H 24 126/73 91 L 07/24/19 08:00 98.7 F 114 H 24 125/80 100 07/24/19 07:59 114 H 07/24/19 07:47 112 H 07/24/19 07:00 116 H 23 128/69 97 07/24/19 06:00 115 H 18 124/64 98 07/24/19 05:00 117 H 22 133/72 99 07/24/19 04:00 99.8 F H 116 H 23 127/76 97 07/24/19 03:00 114 H 20 116/66 99 07/24/19 02:00 120 H 16 127/62 95 07/24/19 01:00 118 H 14 125/73 96 07/24/19 00:08 100 16 121/68 97 07/24/19 00:00 100.2 F H 110 H 16 119/62 97 07/23/19 23:00 112 H 22 105/56 96 07/23/19 22:00 116 H 22 113/59 96 07/23/19 21:00 116 H 18 127/68 95 07/23/19 20:58 102 H 07/23/19 20:48 116 H 07/23/19 20:00 100.0 F H 121 H 14 119/67 95 07/23/19 19:00 117 H 23 110/61 93 L 07/23/19 18:00 120 H 26 H 122/70 94 L 07/23/19 17:00 112 H 20 105/58 97 07/23/19 16:43 117 H 07/23/19 16:34 116 H 07/23/19 16:00 99.3 F 118 H 26 H 107/61 94 L Intake and Output 07/24/19 07/24/19 07/24/19 06:59 14:59 22:59 Intake Total 390 1020 Output Total 225 2160 Balance 165 -1140 Intake: IV 180 180 0.9 80 80 Cefepime 1 gm In Sodium 100 Chloride 0.9% 50 ml @ 100 mls/hr IVPB Q24H [facility] Rx# :[id number] [id number] PMX 500 100 mg In Saline 1 100ml.bag @ 100 mls/hr IVPB Q8HR [facility] Rx#:[id number] Intake, IV Titration 500 Amount Vancomycin 2,250 mg In 500 Sodium Chloride 0.9% 500 ml 500 ml @ 167 mls/hr IVPB ONCE ONE Rx#: [id number] Tube Feeding 150 250 Other 60 90 Output: Drainage 50 70 Right Abdomen 50 70 Urine 175 90 Hemodialysis 2000 Other: Voiding Method Indwelling Catheter Indwelling Catheter Weight 126.6 kg On examination patient is an elderly male, who appears obviously encephalopathic, with impaired attention concentration, appears mildly short of breath. He is alert and awake. He able to speak short sentences normally. He has very decreased attention span at this time. Patient able to name objects perfectly. He does follow commands, but appears impaired concentration. Patient's pupils are round and reacting, visual mai appears full, face is symmetric extraocular muscles are intact. Patient appears diffusely weak in the arms and legs. He can lift arms at the deltoid about 3, biceps 3, newspaper vendor is 3, hip flexion could not be checked perhaps significantly weak. Ankle dorsiflexion is 3+ to 4, but patient did not cooperate well. Reflexes are hypoactive all over, and plantar is questionable withdrawal versus up. Sensory could not be tested. Cerebellar functions could not be tested. Gait cannot be tested. No obvious bruit, S1 and S2 audible. Results - Laboratory Findings CBC and BMP: 07/24/19 05:37 07/24/19 05:37 Abnormal Lab Findings: Abnormal Labs 07/11/19 07/11/19 07/11/19 06:30 06:30 06:30 WBC 13.0 H RBC Hgb 18.4 H Hct 53.4 H Plt Count Neutrophils # 8.5 H Neutrophils # (Manual) Lymphocytes # Lymphocytes # (Manual) Monocytes # Monocytes # (Manual) Basophils # Metamyelocytes # (Man) Myelocytes # (Manual) APTT 19.2 L ABG pH ABG pCO2 ABG pO2 ABG HCO3 ABG Total CO2 ABG O2 Saturation Sodium Potassium Chloride Carbon Dioxide BUN 25 H Creatinine Glucose 200 H POC Glucose (mg/dL) Plasma Lactic Acid Rusty Calcium Ionized Calcium Bo Phosphorus Magnesium Iron TIBC Total Bilirubin 2.9 H Delta Bilirubin AST 440 H ALT 574 H Alkaline Phosphatase CK-MB (CK-2) Total Protein Albumin Triglycerides Amylase 2794 H* Lipase >00216 H Procalcitonin Crossmatch 07/12/19 07/12/19 07/12/19 07:13 07:13 09:34 WBC 24.1 H RBC Hgb 18.7 H Hct 57.6 H* Plt Count Neutrophils # 22.3 H Neutrophils # (Manual) Lymphocytes # 0.5 L Lymphocytes # (Manual) Monocytes # 1.1 H Monocytes # (Manual) Basophils # Metamyelocytes # (Man) Myelocytes # (Manual) APTT ABG pH ABG pCO2 ABG pO2 ABG HCO3 ABG Total CO2 ABG O2 Saturation Sodium Potassium 7.1 H* 6.7 H* Chloride 109 H Carbon Dioxide 20 L BUN 39 H Creatinine 2.15 H Glucose 143 H POC Glucose (mg/dL) Plasma Lactic Acid Rusty Calcium 7.8 L Ionized Calcium Bo Phosphorus Magnesium Iron TIBC Total Bilirubin 3.4 H Delta Bilirubin AST 198 H ALT 370 H Alkaline Phosphatase CK-MB (CK-2) Total Protein Albumin Triglycerides Amylase 1884 H* Lipase 20096 H Procalcitonin Crossmatch 07/12/19 07/12/19 07/12/19 15:29 21:15 21:45 WBC RBC Hgb Hct Plt Count Neutrophils # Neutrophils # (Manual) Lymphocytes # Lymphocytes # (Manual) Monocytes # Monocytes # (Manual) Basophils # Metamyelocytes # (Man) Myelocytes # (Manual) APTT ABG pH ABG pCO2 ABG pO2 ABG HCO3 ABG Total CO2 ABG O2 Saturation Sodium Potassium 5.4 H Chloride Carbon Dioxide BUN Creatinine Glucose POC Glucose (mg/dL) 124 H Plasma Lactic Acid Rusty 4.2 H* Calcium Ionized Calcium Bo Phosphorus Magnesium Iron TIBC Total Bilirubin Delta Bilirubin AST ALT Alkaline Phosphatase CK-MB (CK-2) Total Protein Albumin Triglycerides Amylase Lipase Procalcitonin Crossmatch 07/12/19 07/12/19 07/12/19 21:45 21:45 22:18 WBC 25.5 H RBC Hgb Hct 55.2 H Plt Count 146 L Neutrophils # 21.1 H Neutrophils # (Manual) Lymphocytes # Lymphocytes # (Manual) Monocytes # 1.3 H Monocytes # (Manual) Basophils # Metamyelocytes # (Man) Myelocytes # (Manual) APTT ABG pH ABG pCO2 ABG pO2 ABG HCO3 ABG Total CO2 ABG O2 Saturation Sodium Potassium 5.9 H Chloride 111 H Carbon Dioxide 18 L BUN 58 H Creatinine 3.29 H Glucose 152 H POC Glucose (mg/dL) 141 H Plasma Lactic Acid Rusty Calcium 8.2 L Ionized Calcium Bo Phosphorus Magnesium Iron TIBC Total Bilirubin 4.1 H Delta Bilirubin AST 257 H ALT 272 H Alkaline Phosphatase CK-MB (CK-2) Total Protein Albumin Triglycerides Amylase Lipase Procalcitonin Crossmatch 07/12/19 07/13/19 07/13/19 23:25 01:42 04:46 WBC 22.5 H RBC Hgb Hct Plt Count 127 L Neutrophils # 20.3 H Neutrophils # (Manual) Lymphocytes # 0.7 L Lymphocytes # (Manual) Monocytes # 1.2 H Monocytes # (Manual) Basophils # Metamyelocytes # (Man) Myelocytes # (Manual) APTT ABG pH 7.26 L ABG pCO2 ABG pO2 56 L* ABG HCO3 17 L ABG Total CO2 ABG O2 Saturation 89.4 L Sodium Potassium Chloride Carbon Dioxide BUN Creatinine Glucose POC Glucose (mg/dL) Plasma Lactic Acid Rusty 2.9 H* Calcium Ionized Calcium Bo Phosphorus Magnesium Iron TIBC Total Bilirubin Delta Bilirubin AST ALT Alkaline Phosphatase CK-MB (CK-2) Total Protein Albumin Triglycerides Amylase Lipase Procalcitonin Crossmatch 07/13/19 07/13/19 07/13/19 04:46 06:01 09:53 WBC RBC Hgb Hct Plt Count Neutrophils # Neutrophils # (Manual) Lymphocytes # Lymphocytes # (Manual) Monocytes # Monocytes # (Manual) Basophils # Metamyelocytes # (Man) Myelocytes # (Manual) APTT ABG pH ABG pCO2 ABG pO2 ABG HCO3 ABG Total CO2 ABG O2 Saturation Sodium Potassium 5.3 H Chloride 113 H Carbon Dioxide 18 L BUN 68 H Creatinine 3.88 H Glucose 149 H POC Glucose (mg/dL) Plasma Lactic Acid Rusty 2.3 H* 3.3 H* Calcium 7.7 L Ionized Calcium Bo Phosphorus Magnesium Iron TIBC Total Bilirubin 3.5 H Delta Bilirubin AST 202 H ALT 201 H Alkaline Phosphatase CK-MB (CK-2) Total Protein 5.4 L Albumin 3.2 L Triglycerides Amylase 2061 H* Lipase 23371 H Procalcitonin Crossmatch 07/13/19 07/13/19 07/13/19 10:23 15:21 15:25 WBC RBC Hgb Hct Plt Count Neutrophils # Neutrophils # (Manual) Lymphocytes # Lymphocytes # (Manual) Monocytes # Monocytes # (Manual) Basophils # Metamyelocytes # (Man) Myelocytes # (Manual) APTT ABG pH 7.28 L 7.13 L* ABG pCO2 55 H ABG pO2 68 L 67 L ABG HCO3 17 L 18 L ABG Total CO2 18 L ABG O2 Saturation 93.9 L 90.1 L Sodium Potassium 5.7 H Chloride Carbon Dioxide BUN Creatinine Glucose POC Glucose (mg/dL) Plasma Lactic Acid Rusty Calcium Ionized Calcium Bo Phosphorus Magnesium Iron TIBC Total Bilirubin Delta Bilirubin AST ALT Alkaline Phosphatase CK-MB (CK-2) Total Protein Albumin Triglycerides Amylase Lipase Procalcitonin Crossmatch 07/13/19 07/13/19 07/13/19 16:27 17:12 17:56 WBC RBC Hgb Hct Plt Count Neutrophils # Neutrophils # (Manual) Lymphocytes # Lymphocytes # (Manual) Monocytes # Monocytes # (Manual) Basophils # Metamyelocytes # (Man) Myelocytes # (Manual) APTT ABG pH 7.16 L* ABG pCO2 49 H ABG pO2 74 L ABG HCO3 17 L ABG Total CO2 ABG O2 Saturation 93.4 L Sodium Potassium 5.7 H Chloride 114 H Carbon Dioxide 18 L BUN 82 H Creatinine 5.12 H Glucose 176 H POC Glucose (mg/dL) 203 H Plasma Lactic Acid Rusty Calcium 7.8 L Ionized Calcium Bo Phosphorus Magnesium Iron TIBC Total Bilirubin Delta Bilirubin AST ALT Alkaline Phosphatase CK-MB (CK-2) Total Protein Albumin Triglycerides Amylase Lipase Procalcitonin Crossmatch 07/13/19 07/13/19 07/13/19 21:02 21:02 23:36 WBC 11.3 H RBC 4.29 L Hgb Hct Plt Count 105 L Neutrophils # Neutrophils # (Manual) Lymphocytes # Lymphocytes # (Manual) Monocytes # Monocytes # (Manual) Basophils # Metamyelocytes # (Man) Myelocytes # (Manual) APTT ABG pH ABG pCO2 ABG pO2 ABG HCO3 ABG Total CO2 ABG O2 Saturation Sodium Potassium Chloride 113 H Carbon Dioxide 17 L BUN 85 H Creatinine 5.49 H Glucose 203 H POC Glucose (mg/dL) 194 H Plasma Lactic Acid Rusty Calcium 7.6 L Ionized Calcium Bo Phosphorus Magnesium Iron TIBC Total Bilirubin 2.4 H Delta Bilirubin AST 130 H ALT 138 H Alkaline Phosphatase CK-MB (CK-2) Total Protein 4.9 L Albumin 2.9 L Triglycerides Amylase Lipase Procalcitonin Crossmatch 07/14/19 07/14/19 07/14/19 03:28 03:35 03:35 WBC RBC 4.05 L Hgb Hct Plt Count 87 L Neutrophils # 8.4 H Neutrophils # (Manual) Lymphocytes # 0.5 L Lymphocytes # (Manual) Monocytes # Monocytes # (Manual) Basophils # Metamyelocytes # (Man) Myelocytes # (Manual) APTT ABG pH ABG pCO2 ABG pO2 172 H ABG HCO3 19 L ABG Total CO2 ABG O2 Saturation 99.6 H Sodium Potassium Chloride 112 H Carbon Dioxide 18 L BUN 90 H Creatinine 5.97 H Glucose 199 H POC Glucose (mg/dL) Plasma Lactic Acid Rusty Calcium 7.3 L Ionized Calcium Bo Phosphorus Magnesium Iron TIBC Total Bilirubin 1.9 H Delta Bilirubin AST 92 H ALT 118 H Alkaline Phosphatase CK-MB (CK-2) Total Protein 4.6 L Albumin 2.6 L Triglycerides Amylase 765 H* Lipase 2788 H Procalcitonin Crossmatch 07/14/19 07/14/19 07/14/19 06:52 11:27 14:50 WBC RBC Hgb Hct Plt Count Neutrophils # Neutrophils # (Manual) Lymphocytes # Lymphocytes # (Manual) Monocytes # Monocytes # (Manual) Basophils # Metamyelocytes # (Man) Myelocytes # (Manual) APTT ABG pH ABG pCO2 ABG pO2 ABG HCO3 ABG Total CO2 ABG O2 Saturation Sodium Potassium Chloride 110 H Carbon Dioxide 21 L BUN 95 H Creatinine 6.79 H Glucose 172 H POC Glucose (mg/dL) 185 H 189 H Plasma Lactic Acid Rusty Calcium 7.1 L Ionized Calcium Bo 4.4 L Phosphorus 4.6 H Magnesium Iron TIBC Total Bilirubin 1.6 H Delta Bilirubin AST ALT 94 H Alkaline Phosphatase CK-MB (CK-2) Total Protein 4.4 L Albumin 2.5 L Triglycerides Amylase Lipase Procalcitonin Crossmatch 07/14/19 07/15/19 07/15/19 18:32 00:04 04:05 WBC RBC Hgb Hct Plt Count Neutrophils # Neutrophils # (Manual) Lymphocytes # Lymphocytes # (Manual) Monocytes # Monocytes # (Manual) Basophils # Metamyelocytes # (Man) Myelocytes # (Manual) APTT ABG pH ABG pCO2 ABG pO2 ABG HCO3 ABG Total CO2 ABG O2 Saturation Sodium Potassium Chloride 108 H Carbon Dioxide BUN 106 H* Creatinine 8.04 H* Glucose 198 H POC Glucose (mg/dL) 171 H 233 H Plasma Lactic Acid Rusty Calcium 7.2 L Ionized Calcium Bo Phosphorus 4.8 H Magnesium Iron TIBC Total Bilirubin Delta Bilirubin AST ALT Alkaline Phosphatase CK-MB (CK-2) Total Protein Albumin Triglycerides Amylase Lipase Procalcitonin Crossmatch 07/15/19 07/15/19 07/15/19 04:05 04:05 04:05 WBC 15.1 H RBC 3.73 L Hgb 11.7 L Hct 36.3 L Plt Count 105 L Neutrophils # 12.8 H Neutrophils # (Manual) Lymphocytes # 0.9 L Lymphocytes # (Manual) Monocytes # Monocytes # (Manual) Basophils # Metamyelocytes # (Man) Myelocytes # (Manual) APTT ABG pH ABG pCO2 ABG pO2 ABG HCO3 ABG Total CO2 ABG O2 Saturation 97.4 H Sodium Potassium Chloride Carbon Dioxide BUN Creatinine Glucose POC Glucose (mg/dL) Plasma Lactic Acid Rusty Calcium Ionized Calcium Bo Phosphorus Magnesium Iron TIBC Total Bilirubin Delta Bilirubin AST ALT Alkaline Phosphatase CK-MB (CK-2) 3.8 H Total Protein Albumin Triglycerides Amylase Lipase Procalcitonin Crossmatch 07/15/19 07/15/19 07/15/19 05:53 12:19 18:32 WBC RBC Hgb Hct Plt Count Neutrophils # Neutrophils # (Manual) Lymphocytes # Lymphocytes # (Manual) Monocytes # Monocytes # (Manual) Basophils # Metamyelocytes # (Man) Myelocytes # (Manual) APTT ABG pH ABG pCO2 ABG pO2 ABG HCO3 ABG Total CO2 ABG O2 Saturation Sodium Potassium Chloride Carbon Dioxide BUN Creatinine Glucose POC Glucose (mg/dL) 226 H 192 H 183 H Plasma Lactic Acid Rusty Calcium Ionized Calcium Bo Phosphorus Magnesium Iron TIBC Total Bilirubin Delta Bilirubin AST ALT Alkaline Phosphatase CK-MB (CK-2) Total Protein Albumin Triglycerides Amylase Lipase Procalcitonin Crossmatch 07/16/19 07/16/19 07/16/19 00:17 04:00 04:00 WBC 14.0 H RBC 3.42 L Hgb 10.9 L Hct 33.4 L Plt Count 72 L Neutrophils # Neutrophils # (Manual) Lymphocytes # Lymphocytes # (Manual) Monocytes # Monocytes # (Manual) Basophils # Metamyelocytes # (Man) Myelocytes # (Manual) APTT ABG pH ABG pCO2 ABG pO2 ABG HCO3 ABG Total CO2 ABG O2 Saturation Sodium 135 L Potassium Chloride Carbon Dioxide BUN 102 H* Creatinine 8.09 H* Glucose 252 H POC Glucose (mg/dL) 239 H Plasma Lactic Acid Rusty Calcium 7.4 L Ionized Calcium Bo Phosphorus 6.3 H Magnesium Iron TIBC Total Bilirubin Delta Bilirubin AST ALT 52 H Alkaline Phosphatase CK-MB (CK-2) Total Protein 3.8 L Albumin 2.1 L Triglycerides Amylase Lipase Procalcitonin Crossmatch 07/16/19 07/16/19 07/16/19 04:00 04:35 06:02 WBC RBC Hgb Hct Plt Count Neutrophils # Neutrophils # (Manual) Lymphocytes # Lymphocytes # (Manual) Monocytes # Monocytes # (Manual) Basophils # Metamyelocytes # (Man) Myelocytes # (Manual) APTT ABG pH ABG pCO2 ABG pO2 61 L ABG HCO3 ABG Total CO2 25 H ABG O2 Saturation 91.8 L Sodium Potassium Chloride Carbon Dioxide BUN Creatinine Glucose POC Glucose (mg/dL) 272 H Plasma Lactic Acid Rusty Calcium Ionized Calcium Bo Phosphorus Magnesium Iron TIBC Total Bilirubin Delta Bilirubin AST ALT Alkaline Phosphatase CK-MB (CK-2) Total Protein Albumin Triglycerides Amylase Lipase 429 H Procalcitonin Crossmatch 12/15/19 12/15/19 12/15/19 12:03 18:04 21:56 WBC RBC Hgb Hct Plt Count Neutrophils # Neutrophils # (Manual) Lymphocytes # Lymphocytes # (Manual) Monocytes # Monocytes # (Manual) Basophils # Metamyelocytes # (Man) Myelocytes # (Manual) APTT ABG pH ABG pCO2 ABG pO2 ABG HCO3 ABG Total CO2 ABG O2 Saturation Sodium Potassium Chloride Carbon Dioxide BUN Creatinine Glucose POC Glucose (mg/dL) 236 H 279 H 264 H Plasma Lactic Acid Rusty Calcium Ionized Calcium Bo Phosphorus Magnesium Iron TIBC Total Bilirubin Delta Bilirubin AST ALT Alkaline Phosphatase CK-MB (CK-2) Total Protein Albumin Triglycerides Amylase Lipase Procalcitonin Crossmatch 07/17/19 07/17/19 07/17/19 01:56 04:45 04:45 WBC 15.3 H RBC 3.44 L Hgb 11.2 L Hct 33.7 L Plt Count 68 L Neutrophils # Neutrophils # (Manual) Lymphocytes # Lymphocytes # (Manual) Monocytes # Monocytes # (Manual) Basophils # Metamyelocytes # (Man) Myelocytes # (Manual) APTT ABG pH ABG pCO2 ABG pO2 ABG HCO3 ABG Total CO2 ABG O2 Saturation Sodium 134 L Potassium Chloride Carbon Dioxide BUN 96 H Creatinine 7.78 H* Glucose 265 H POC Glucose (mg/dL) 266 H Plasma Lactic Acid Rusty Calcium 7.5 L Ionized Calcium Bo Phosphorus 8.2 H Magnesium 2.4 H Iron TIBC Total Bilirubin Delta Bilirubin AST ALT Alkaline Phosphatase CK-MB (CK-2) Total Protein Albumin Triglycerides Amylase Lipase 356 H Procalcitonin Crossmatch 07/17/19 07/17/19 07/17/19 05:11 06:09 08:03 WBC RBC Hgb Hct Plt Count Neutrophils # Neutrophils # (Manual) Lymphocytes # Lymphocytes # (Manual) Monocytes # Monocytes # (Manual) Basophils # Metamyelocytes # (Man) Myelocytes # (Manual) APTT ABG pH ABG pCO2 ABG pO2 68 L ABG HCO3 ABG Total CO2 25 H ABG O2 Saturation 93.5 L Sodium Potassium Chloride Carbon Dioxide BUN Creatinine Glucose POC Glucose (mg/dL) 273 H 251 H Plasma Lactic Acid Rusty Calcium Ionized Calcium Bo Phosphorus Magnesium Iron TIBC Total Bilirubin Delta Bilirubin AST ALT Alkaline Phosphatase CK-MB (CK-2) Total Protein Albumin Triglycerides Amylase Lipase Procalcitonin Crossmatch 07/17/19 07/17/19 07/17/19 11:25 11:57 14:45 WBC 24.4 H RBC 3.40 L Hgb 10.9 L Hct 33.1 L Plt Count 80 L Neutrophils # Neutrophils # (Manual) Lymphocytes # Lymphocytes # (Manual) Monocytes # Monocytes # (Manual) Basophils # Metamyelocytes # (Man) Myelocytes # (Manual) APTT ABG pH ABG pCO2 ABG pO2 ABG HCO3 ABG Total CO2 ABG O2 Saturation Sodium Potassium Chloride Carbon Dioxide BUN Creatinine Glucose POC Glucose (mg/dL) 181 H Plasma Lactic Acid Rusty Calcium Ionized Calcium Bo Phosphorus Magnesium Iron TIBC Total Bilirubin 1.4 H Delta Bilirubin 1.1 H AST ALT 54 H Alkaline Phosphatase CK-MB (CK-2) Total Protein 4.2 L Albumin 2.3 L Triglycerides Amylase Lipase Procalcitonin Crossmatch 07/17/19 07/17/19 07/17/19 14:45 15:38 16:19 WBC RBC Hgb Hct Plt Count Neutrophils # Neutrophils # (Manual) Lymphocytes # Lymphocytes # (Manual) Monocytes # Monocytes # (Manual) Basophils # Metamyelocytes # (Man) Myelocytes # (Manual) APTT ABG pH 7.26 L ABG pCO2 52 H ABG pO2 ABG HCO3 ABG Total CO2 25 H ABG O2 Saturation Sodium Potassium Chloride Carbon Dioxide BUN Creatinine Glucose POC Glucose (mg/dL) 224 H Plasma Lactic Acid Rusty Calcium Ionized Calcium Bo Phosphorus Magnesium Iron TIBC Total Bilirubin Delta Bilirubin AST ALT Alkaline Phosphatase CK-MB (CK-2) Total Protein Albumin Triglycerides Amylase Lipase Procalcitonin Crossmatch See Detail 07/17/19 07/17/19 07/17/19 18:35 18:40 21:59 WBC 16.9 H RBC 2.99 L Hgb 9.5 L Hct 29.2 L Plt Count 58 L Neutrophils # Neutrophils # (Manual) Lymphocytes # Lymphocytes # (Manual) Monocytes # Monocytes # (Manual) Basophils # Metamyelocytes # (Man) Myelocytes # (Manual) APTT ABG pH ABG pCO2 ABG pO2 ABG HCO3 ABG Total CO2 ABG O2 Saturation Sodium Potassium Chloride Carbon Dioxide BUN Creatinine Glucose POC Glucose (mg/dL) 260 H 227 H Plasma Lactic Acid Rusty Calcium Ionized Calcium Bo Phosphorus Magnesium Iron TIBC Total Bilirubin Delta Bilirubin AST ALT Alkaline Phosphatase CK-MB (CK-2) Total Protein Albumin Triglycerides Amylase Lipase Procalcitonin Crossmatch 07/18/19 07/18/1907/18/19 02:03 04:30 04:30 WBC 19.1 H RBC 2.68 L Hgb 8.8 L Hct 26.0 L Plt Count 84 L Neutrophils # Neutrophils # (Manual) Lymphocytes # Lymphocytes # (Manual) Monocytes # Monocytes # (Manual) Basophils # Metamyelocytes # (Man) Myelocytes # (Manual) APTT ABG pH ABG pCO2 ABG pO2 ABG HCO3 ABG Total CO2 ABG O2 Saturation Sodium 131 L Potassium 6.3 H* Chloride Carbon Dioxide 21 L BUN 99 H Creatinine 7.50 H* Glucose 186 H POC Glucose (mg/dL) 193 H Plasma Lactic Acid Ursty Calcium 7.4 L Ionized Calcium Bo Phosphorus 9.2 H* Magnesium Iron TIBC Total Bilirubin Delta Bilirubin AST 148 H ALT 103 H Alkaline Phosphatase CK-MB (CK-2) Total Protein 3.5 L Albumin 1.9 L Triglycerides 375 H Amylase Lipase Procalcitonin Crossmatch 07/18/19 07/18/19 07/18/19 05:01 06:10 07:57 WBC RBC Hgb Hct Plt Count Neutrophils # Neutrophils # (Manual) Lymphocytes # Lymphocytes # (Manual) Monocytes # Monocytes # (Manual) Basophils # Metamyelocytes # (Man) Myelocytes # (Manual) APTT ABG pH ABG pCO2 ABG pO2 82 L ABG HCO3 ABG Total CO2 ABG O2 Saturation Sodium Potassium Chloride Carbon Dioxide BUN Creatinine Glucose POC Glucose (mg/dL) 202 H 200 H Plasma Lactic Acid Rusty Calcium Ionized Calcium Bo Phosphorus Magnesium Iron TIBC Total Bilirubin Delta Bilirubin AST ALT Alkaline Phosphatase CK-MB (CK-2) Total Protein Albumin Triglycerides Amylase Lipase Procalcitonin Crossmatch 07/18/19 07/18/19 07/18/19 11:08 13:20 13:30 WBC 18.9 H RBC 2.64 L Hgb 8.3 L Hct 25.7 L Plt Count 73 L Neutrophils # Neutrophils # (Manual) Lymphocytes # Lymphocytes # (Manual) Monocytes # Monocytes # (Manual) Basophils # Metamyelocytes # (Man) Myelocytes # (Manual) APTT ABG pH ABG pCO2 ABG pO2 ABG HCO3 ABG Total CO2 ABG O2 Saturation Sodium Potassium 5.4 H Chloride Carbon Dioxide BUN Creatinine Glucose POC Glucose (mg/dL) 183 H Plasma Lactic Acid Rusty Calcium Ionized Calcium Bo Phosphorus Magnesium Iron TIBC Total Bilirubin Delta Bilirubin AST ALT Alkaline Phosphatase CK-MB (CK-2) Total Protein Albumin Triglycerides Amylase Lipase Procalcitonin Crossmatch 07/18/19 07/18/19 07/18/19 13:56 17:56 23:55 WBC RBC Hgb Hct Plt Count Neutrophils # Neutrophils # (Manual) Lymphocytes # Lymphocytes # (Manual) Monocytes # Monocytes # (Manual) Basophils # Metamyelocytes # (Man) Myelocytes # (Manual) APTT ABG pH ABG pCO2 ABG pO2 ABG HCO3 ABG Total CO2 ABG O2 Saturation Sodium Potassium Chloride Carbon Dioxide BUN Creatinine Glucose POC Glucose (mg/dL) 212 H 154 H 179 H Plasma Lactic Acid Rusty Calcium Ionized Calcium Bo Phosphorus Magnesium Iron TIBC Total Bilirubin Delta Bilirubin AST ALT Alkaline Phosphatase CK-MB (CK-2) Total Protein Albumin Triglycerides Amylase Lipase Procalcitonin Crossmatch 07/19/19 07/19/19 07/19/19 04:00 04:00 04:00 WBC 17.4 H RBC 2.39 L Hgb 7.7 L Hct 23.0 L Plt Count 120 L D Neutrophils # Neutrophils # (Manual) 16.00 H Lymphocytes # Lymphocytes # (Manual) 0.35 L Monocytes # Monocytes # (Manual) Basophils # Metamyelocytes # (Man) 0.17 H Myelocytes # (Manual) APTT ABG pH ABG pCO2 ABG pO2 ABG HCO3 ABG Total CO2 ABG O2 Saturation Sodium 134 L Potassium 5.4 H Chloride Carbon Dioxide 21 L BUN 100 H Creatinine 6.60 H Glucose 149 H POC Glucose (mg/dL) Plasma Lactic Acid Rusty Calcium 7.5 L Ionized Calcium Bo Phosphorus 8.6 H Magnesium Iron TIBC Total Bilirubin Delta Bilirubin 1.0 H AST 86 H ALT 79 H Alkaline Phosphatase CK-MB (CK-2) Total Protein 3.9 L Albumin 2.3 L Triglycerides Amylase Lipase Procalcitonin 2.70 H Crossmatch 07/19/19 07/19/19 07/19/19 08:18 11:34 16:05 WBC RBC Hgb Hct Plt Count Neutrophils # Neutrophils # (Manual) Lymphocytes # Lymphocytes # (Manual) Monocytes # Monocytes # (Manual) Basophils # Metamyelocytes # (Man) Myelocytes # (Manual) APTT ABG pH ABG pCO2 ABG pO2 ABG HCO3 ABG Total CO2 ABG O2 Saturation Sodium Potassium Chloride Carbon Dioxide BUN Creatinine Glucose POC Glucose (mg/dL) 154 H 129 H 127 H Plasma Lactic Acid Rusty Calcium Ionized Calcium Bo Phosphorus Magnesium Iron TIBC Total Bilirubin Delta Bilirubin AST ALT Alkaline Phosphatase CK-MB (CK-2) Total Protein Albumin Triglycerides Amylase Lipase Procalcitonin Crossmatch 07/20/19 07/20/19 07/20/19 00:17 04:25 04:25 WBC 26.7 H RBC 2.73 L Hgb 8.5 L Hct 25.9 L Plt Count Neutrophils # 24.1 H Neutrophils # (Manual) Lymphocytes # 0.5 L Lymphocytes # (Manual) Monocytes # Monocytes # (Manual) Basophils # 0.3 H Metamyelocytes # (Man) Myelocytes # (Manual) APTT ABG pH ABG pCO2 ABG pO2 ABG HCO3 ABG Total CO2 ABG O2 Saturation Sodium 131 L Potassium 5.3 H Chloride Carbon Dioxide 20 L BUN 90 H Creatinine 6.85 H Glucose 112 H POC Glucose (mg/dL) 111 H Plasma Lactic Acid Rusty Calcium 7.8 L Ionized Calcium Bo Phosphorus 9.9 H* Magnesium Iron TIBC Total Bilirubin 1.4 H Delta Bilirubin AST 62 H ALT 64 H Alkaline Phosphatase 197 H CK-MB (CK-2) Total Protein 4.2 L Albumin 2.4 L Triglycerides Amylase Lipase Procalcitonin Crossmatch 07/20/19 07/20/19 07/20/19 05:19 11:23 18:03 WBC RBC Hgb Hct Plt Count Neutrophils # Neutrophils # (Manual) Lymphocytes # Lymphocytes # (Manual) Monocytes # Monocytes # (Manual) Basophils # Metamyelocytes # (Man) Myelocytes # (Manual) APTT ABG pH ABG pCO2 ABG pO2 82 L ABG HCO3 ABG Total CO2 ABG O2 Saturation Sodium Potassium Chloride Carbon Dioxide BUN Creatinine Glucose POC Glucose (mg/dL) 107 H 128 H Plasma Lactic Acid Rusty Calcium Ionized Calcium Bo Phosphorus Magnesium Iron TIBC Total Bilirubin Delta Bilirubin AST ALT Alkaline Phosphatase CK-MB (CK-2) Total Protein Albumin Triglycerides Amylase Lipase Procalcitonin Crossmatch 07/20/19 07/21/19 07/21/19 20:04 00:11 04:53 WBC RBC Hgb Hct Plt Count Neutrophils # Neutrophils # (Manual) Lymphocytes # Lymphocytes # (Manual) Monocytes # Monocytes # (Manual) Basophils # Metamyelocytes # (Man) Myelocytes # (Manual) APTT ABG pH ABG pCO2 34 L ABG pO2 ABG HCO3 20 L ABG Total CO2 ABG O2 Saturation 97.5 H Sodium Potassium Chloride Carbon Dioxide BUN Creatinine Glucose POC Glucose (mg/dL) 135 H 114 H Plasma Lactic Acid Rusty Calcium Ionized Calcium Bo Phosphorus Magnesium Iron TIBC Total Bilirubin Delta Bilirubin AST ALT Alkaline Phosphatase CK-MB (CK-2) Total Protein Albumin Triglycerides Amylase Lipase Procalcitonin Crossmatch 07/21/19 07/21/19 07/21/19 05:00 05:00 06:03 WBC 31.8 H RBC 2.45 L Hgb 7.8 L Hct 23.0 L Plt Count Neutrophils # Neutrophils # (Manual) 30.50 H Lymphocytes # Lymphocytes # (Manual) Monocytes # Monocytes # (Manual) Basophils # Metamyelocytes # (Man) 0.32 H Myelocytes # (Manual) APTT ABG pH ABG pCO2 ABG pO2 ABG HCO3 ABG Total CO2 ABG O2 Saturation Sodium 131 L Potassium 5.4 H Chloride Carbon Dioxide 18 L BUN 88 H Creatinine 6.28 H Glucose 130 H POC Glucose (mg/dL) 135 H Plasma Lactic Acid Rusty Calcium 7.6 L Ionized Calcium Bo Phosphorus Magnesium Iron TIBC Total Bilirubin Delta Bilirubin AST ALT Alkaline Phosphatase 210 H CK-MB (CK-2) Total Protein 4.4 L Albumin 2.4 L Triglycerides Amylase Lipase Procalcitonin Crossmatch 07/21/19 07/21/19 07/22/19 12:08 17:11 00:01 WBC RBC Hgb Hct Plt Count Neutrophils # Neutrophils # (Manual) Lymphocytes # Lymphocytes # (Manual) Monocytes # Monocytes # (Manual) Basophils # Metamyelocytes # (Man) Myelocytes # (Manual) APTT ABG pH ABG pCO2 ABG pO2 ABG HCO3 ABG Total CO2 ABG O2 Saturation Sodium Potassium Chloride Carbon Dioxide BUN Creatinine Glucose POC Glucose (mg/dL) 150 H 122 H 122 H Plasma Lactic Acid Rusty Calcium Ionized Calcium Bo Phosphorus Magnesium Iron TIBC Total Bilirubin Delta Bilirubin AST ALT Alkaline Phosphatase CK-MB (CK-2) Total Protein Albumin Triglycerides Amylase Lipase Procalcitonin Crossmatch 07/22/19 07/22/19 07/22/19 05:15 05:15 05:15 WBC 30.3 H RBC 2.16 L Hgb 6.8 L* Hct 20.2 L Plt Count Neutrophils # Neutrophils # (Manual) 27.50 H Lymphocytes # Lymphocytes # (Manual) Monocytes # Monocytes # (Manual) Basophils # Metamyelocytes # (Man) Myelocytes # (Manual) 0.91 H APTT ABG pH ABG pCO2 ABG pO2 ABG HCO3 ABG Total CO2 ABG O2 Saturation Sodium 134 L Potassium Chloride Carbon Dioxide 17 L BUN 102 H* Creatinine 6.61 H Glucose 113 H POC Glucose (mg/dL) Plasma Lactic Acid Rusty Calcium 7.7 L Ionized Calcium Bo Phosphorus Magnesium Iron TIBC Total Bilirubin Delta Bilirubin AST 67 H ALT 51 H Alkaline Phosphatase 210 H CK-MB (CK-2) Total Protein 4.4 L Albumin 2.4 L Triglycerides Amylase Lipase Procalcitonin 2.25 H Crossmatch 07/22/19 07/22/19 07/22/19 05:15 06:08 06:40 WBC RBC Hgb Hct Plt Count Neutrophils # Neutrophils # (Manual) Lymphocytes # Lymphocytes # (Manual) Monocytes # Monocytes # (Manual) Basophils # Metamyelocytes # (Man) Myelocytes # (Manual) APTT ABG pH ABG pCO2 ABG pO2 ABG HCO3 ABG Total CO2 ABG O2 Saturation Sodium Potassium Chloride Carbon Dioxide BUN Creatinine Glucose POC Glucose (mg/dL) 119 H Plasma Lactic Acid Rusty Calcium Ionized Calcium Bo Phosphorus Magnesium Iron 51 L TIBC 153 L Total Bilirubin Delta Bilirubin AST ALT Alkaline Phosphatase CK-MB (CK-2) Total Protein Albumin Triglycerides Amylase Lipase Procalcitonin Crossmatch See Detail 07/22/19 07/22/19 07/22/19 14:13 17:24 17:30 WBC 33.1 H RBC 2.41 L Hgb 7.5 L Hct 22.3 L Plt Count Neutrophils # Neutrophils # (Manual) Lymphocytes # Lymphocytes # (Manual) Monocytes # Monocytes # (Manual) Basophils # Metamyelocytes # (Man) Myelocytes # (Manual) APTT ABG pH ABG pCO2 ABG pO2 ABG HCO3 ABG Total CO2 ABG O2 Saturation Sodium Potassium Chloride Carbon Dioxide BUN Creatinine Glucose POC Glucose (mg/dL) 127 H 134 H Plasma Lactic Acid Rusty Calcium Ionized Calcium Bo Phosphorus Magnesium Iron TIBC Total Bilirubin Delta Bilirubin AST ALT Alkaline Phosphatase CK-MB (CK-2) Total Protein Albumin Triglycerides Amylase Lipase Procalcitonin Crossmatch 07/23/19 07/23/19 07/23/19 00:10 05:02 05:02 WBC 30.7 H RBC 2.36 L Hgb 7.3 L Hct 21.8 L Plt Count 510 H Neutrophils # Neutrophils # (Manual) 26.40 H Lymphocytes # Lymphocytes # (Manual) Monocytes # Monocytes # (Manual) 1.84 H Basophils # Metamyelocytes # (Man) Myelocytes # (Manual) 0.31 H APTT ABG pH ABG pCO2 ABG pO2 ABG HCO3 ABG Total CO2 ABG O2 Saturation Sodium Potassium Chloride Carbon Dioxide 16 L BUN 116 H* Creatinine 7.00 H Glucose 112 H POC Glucose (mg/dL) 139 H Plasma Lactic Acid Rusty Calcium 7.8 L Ionized Calcium Bo Phosphorus Magnesium Iron TIBC Total Bilirubin Delta Bilirubin AST 66 H ALT 56 H Alkaline Phosphatase 223 H CK-MB (CK-2) Total Protein 4.9 L Albumin 2.6 L Triglycerides Amylase Lipase Procalcitonin Crossmatch 07/23/19 07/23/19 07/23/19 05:55 11:19 17:26 WBC RBC Hgb Hct Plt Count Neutrophils # Neutrophils # (Manual) Lymphocytes # Lymphocytes # (Manual) Monocytes # Monocytes # (Manual) Basophils # Metamyelocytes # (Man) Myelocytes # (Manual) APTT ABG pH ABG pCO2 ABG pO2 ABG HCO3 ABG Total CO2 ABG O2 Saturation Sodium Potassium Chloride Carbon Dioxide BUN Creatinine Glucose POC Glucose (mg/dL) 120 H 137 H 126 H Plasma Lactic Acid Rusty Calcium Ionized Calcium Bo Phosphorus Magnesium Iron TIBC Total Bilirubin Delta Bilirubin AST ALT Alkaline Phosphatase CK-MB (CK-2) Total Protein Albumin Triglycerides Amylase Lipase Procalcitonin Crossmatch 07/23/19 07/24/19 07/24/19 23:52 05:37 05:37 WBC 32.9 H RBC 2.33 L Hgb 7.3 L Hct 22.4 L Plt Count Neutrophils # Neutrophils # (Manual) 29.90 H Lymphocytes # Lymphocytes # (Manual) Monocytes # Monocytes # (Manual) Basophils # Metamyelocytes # (Man) Myelocytes # (Manual) 0.66 H APTT ABG pH ABG pCO2 ABG pO2 ABG HCO3 ABG Total CO2 ABG O2 Saturation Sodium Potassium Chloride Carbon Dioxide 18 L BUN 119 H* Creatinine 7.12 H* Glucose 128 H POC Glucose (mg/dL) 137 H Plasma Lactic Acid Rusty Calcium 8.3 L Ionized Calcium Bo Phosphorus Magnesium Iron TIBC Total Bilirubin Delta Bilirubin AST 66 H ALT 61 H Alkaline Phosphatase 219 H CK-MB (CK-2) Total Protein 5.5 L Albumin 3.0 L Triglycerides Amylase Lipase Procalcitonin Crossmatch 07/24/19 07/24/19 06:13 12:01 WBC RBC Hgb Hct Plt Count Neutrophils # Neutrophils # (Manual) Lymphocytes # Lymphocytes # (Manual) Monocytes # Monocytes # (Manual) Basophils # Metamyelocytes # (Man) Myelocytes # (Manual) APTT ABG pH ABG pCO2 ABG pO2 ABG HCO3 ABG Total CO2 ABG O2 Saturation Sodium Potassium Chloride Carbon Dioxide BUN Creatinine Glucose POC Glucose (mg/dL) 131 H 123 H Plasma Lactic Acid Rusty Calcium Ionized Calcium Bo Phosphorus Magnesium Iron TIBC Total Bilirubin Delta Bilirubin AST ALT Alkaline Phosphatase CK-MB (CK-2) Total Protein Albumin Triglycerides Amylase Lipase Procalcitonin Crossmatch Assessment and Plan Assessment: * Altered mental status, likely related to toxic metabolic encephalopathy. * Generalized weakness, with hyporeflexia. Possible due to acute encephalopathy. Cannot rule out underlying critical illness neuropathy. * Acute kidney injury with acute renal failure, requiring dialysis. * Acute gallstones pancreatitis * Acute cholecystitis, status post open cholecystectomy * Elevated liver enzymes * Significant anemia * Leukocytosis, possible due to sepsis Plan: * Patient's examination is nonfocal. His altered mental status likely related to acute toxic metabolic encephalopathy. * Patient's generalized weakness also likely related to encephalopathy. Will need serial neurological examination to rule out underlying critical illness neuropathy. We will check B12, folate, TSH, free T4, hemoglobin A1c, immune fixation electrophoresis and ammonia level. * We will follow clinically. * Discussed with patient's family in detail.
[2019-07-24 17:27] LABS: T4, Free (Free Thyroxine) 0.73 ng/dL (0.78-2.19)
[2019-07-24 18:24] LABS: Glucose,Whole Blood 159 mg/dL (75-99)
[2019-07-24] MEDS: MELATONIN 3 MG TABLET PO PRN (22:20)
--- NOTE | 2019-07-24 23:24 | P.CONS ---
History of Present Illness - Reason for Consult Consult date: 07/24/19 fever and leukocytosis Requesting physician: Fadi Lopez - Chief Complaint abd pain x few days on admission - History of Present Illness Patient is 54-year male admitted to the hospital on July 2019 with abdominal pain patient has been diagnosed with acute gallstone pancreatitis that has been treated medically patient subsequently did have open cholecystectomy on 07/18/2019 patient also have evidence of multiple organ failure including acute vent dependent respiratory failure and renal failure patient is currently undergoing hemodialysis through the right groin femoral catheter and the patient has been extubated and is currently on nasal cannula oxygen this patient has been running low-grade fever over the last 3 days highest temperature has been 100.3 patient is currently hemodynamically stable and not requiring any pressor support patient did have a elevated white count since July 15, 2019 however over the last 3 days white count has been as high as 32.9-33.1 patient is currently on broad-spectrum antibiotic from cefepime vancomycin and Flagyl because of his low-grade fever and elevated white count infectious was consulted for further recommendation regarding antibiotic most information has been obtained from chart review the chart as the patient is currently lethargic and unable to provide any history. Review of Systems Positive point has been mentioned in HPI complete review could not be obtained b ecause of underlying mental status Past Medical History Past Medical History: Hearing Disorder / Deafness, Hypertension Additional Past Medical History / Comment(s): HAD A HEART MURMUR WHEN A CHILD- NEVER HEARD ANYTHING AFTER THAT ABOUT IT, SL. HEARLING LOSS YAMILA. EARS History of Any Multi-Drug Resistant Organisms: None Reported Past Surgical History: No Surgical Hx Reported Additional Past Surgical History / Comment(s): Colonoscopy with benign polypectomy Past Anesthesia/Blood Transfusion Reactions: No Reported Reaction Smoking Status: Current some day smoker - Past Family History Father Family Medical History: Coronary Artery Disease (CAD) Additional Family Medical History / Comment(s): Father had 4 vessel CABG Mother Family Medical History: Hypertension Medications and Allergies Home Medications Medication Instructions Recorded Confirmed Type Lisinopril-Hctz 10-12.5 mg 1 tab PO DAILY 05/30/19 07/11/19 History [Zestoretic 10-12.5] Multivitamins, Thera [Multivitamin 1 tab PO DAILY 07/11/19 07/11/19 History (formulary)] Allergies Allergy/AdvReac Type Severity Reaction Status Date / Time amoxicillin Allergy Rash/Hives Verified 07/11/19 08:00 Physical Exam Vitals: Vital Signs Temp Pulse Resp BP BP Pulse Ox 07/24/19 15:31 118 H 07/24/19 15:23 118 H 95 07/24/19 14:21 105/59 07/24/19 14:00 120 H 21 99/58 95 07/24/19 13:00 114 H 16 89/45 97 07/24/19 12:00 98.5 F 120 H 19 110/58 96 07/24/19 11:53 112 H 07/24/19 11:41 110 H 07/24/19 11:00 126 H 28 H 85/46 95 07/24/19 10:00 121 H 35 H 120/67 95 07/24/19 09:00 116 H 24 126/73 91 L 07/24/19 08:00 98.7 F 114 H 24 125/80 100 07/24/19 07:59 114 H 07/24/19 07:47 112 H 07/24/19 07:00 116 H 23 128/69 97 07/24/19 06:00 115 H 18 124/64 98 07/24/19 05:00 117 H 22 133/72 99 07/24/19 04:00 99.8 F H 116 H 23 127/76 97 07/24/19 03:00 114 H 20 116/66 99 07/24/19 02:00 120 H 16 127/62 95 07/24/19 01:00 118 H 14 125/73 96 07/24/19 00:08 100 16 121/68 97 07/24/19 00:00 100.2 F H 110 H 16 119/62 97 07/23/19 23:00 112 H 22 105/56 96 07/23/19 22:00 116 H 22 113/59 96 07/23/19 21:00 116 H 18 127/68 95 07/23/19 20:58 102 H 07/23/19 20:48 116 H 07/23/19 20:00 100.0 F H 121 H 14 119/67 95 07/23/19 19:00 117 H 23 110/61 93 L 07/23/19 18:00 120 H 26 H 122/70 94 L 07/23/19 17:00 112 H 20 105/58 97 07/23/19 16:43 117 H Intake and Output 07/24/19 07/24/19 07/24/19 06:59 14:59 22:59 Intake Total 390 1020 Output Total 225 2160 Balance 165 -1140 Intake: IV 180 180 0.9 80 80 Cefepime 1 gm In Sodium 100 Chloride 0.9% 50 ml @ 100 mls/hr IVPB Q24H [facility] Rx# :[id number] metroNIDAZOLE-NS PMX 500 100 mg In Saline 1 100ml.bag @ 100 mls/hr IVPB Q8HR [facility] Rx#:[id number] Intake, IV Titration 500 Amount Vancomycin 2,250 mg In 500 Sodium Chloride 0.9% 500 ml 500 ml @ 167 mls/hr IVPB ONCE ONE Rx#: [id number] Tube Feeding 150 250 Other 60 90 Output: Drainage 50 70 Right Abdomen 50 70 Urine 175 90 Hemodialysis 2000 Other: Voiding Method Indwelling Catheter Indwelling Catheter Weight 126.6 kg GENERAL DESCRIPTION: Middle-aged male lying in bed, no distress. No tachypnea or accessory muscle of respiration use. HEENT: Shows Pallor , no scleral icterus. Oral mucous membrane is dry. NECK: Trachea central, no thyromegaly. LUNGS: Unlabored breathing. Decreased breath sounds at the bases. No wheeze or crackle. HEART: S1, S2, regular rate and rhythm. ABDOMEN: Soft, mild distention , notenderness , guarding or rigidity EXTREMITIES: No edema of feet. SKIN: No rash, no masses palpable. NEUROLOGICAL: The patient is lethargic orientation could not be determined Results CBC & Chem 7: 07/24/19 05:37 07/24/19 05:37 Labs: Abnormal Lab Results - Last 24 Hours (Table) 07/23/19 07/23/19 07/24/19 Range/Units 17:26 23:52 05:37 WBC (3.8-10.6) k/uL RBC (4.30-5.90) m/uL Hgb (13.0-17.5) gm/dL Hct (39.0-53.0) % Neutrophils # (Manual) (1.3-7.7) k/uL Myelocytes # (Manual) (0) k/uL Carbon Dioxide 18 L (22-30) mmol/L BUN 119 H* (9-20) mg/dL Creatinine 7.12 H* (0.66-1.25) mg/dL Glucose 128 H (74-99) mg/dL POC Glucose (mg/dL) 126 H 137 H (75-99) mg/dL Calcium 8.3 L (8.4-10.2) mg/dL AST 66 H (17-59) U/L ALT 61 H (4-49) U/L Alkaline Phosphatase 219 H (38-126) U/L Total Protein 5.5 L (6.3-8.2) g/dL Albumin 3.0 L (3.5-5.0) g/dL 07/24/19 07/24/19 07/24/19 Range/Units 05:37 06:13 12:01 WBC 32.9 H (3.8-10.6) k/uL RBC 2.33 L (4.30-5.90) m/uL Hgb 7.3 L (13.0-17.5) gm/dL Hct 22.4 L (39.0-53.0) % Neutrophils # (Manual) 29.90 H (1.3-7.7) k/uL Myelocytes # (Manual) 0.66 H (0) k/uL Carbon Dioxide (22-30) mmol/L BUN (9-20) mg/dL Creatinine (0.66-1.25) mg/dL Glucose (74-99) mg/dL POC Glucose (mg/dL) 131 H 123 H (75-99) mg/dL Calcium (8.4-10.2) mg/dL AST (17-59) U/L ALT (4-49) U/L Alkaline Phosphatase (38-126) U/L Total Protein (6.3-8.2) g/dL Albumin (3.5-5.0) g/dL Microbiology - Last 24 Hours (Table) 07/19/19 10:20 Blood Culture - Preliminary Blood No Growth after 120 hours 07/23/19 10:17 Blood Culture - Preliminary Blood No Growth after 24 hours 07/23/19 10:40 Blood Culture - Preliminary Blood No Growth after 24 hours 07/23/19 10:17 Blood Culture - Final Blood 07/24/19 00:00 Urine Culture - Preliminary Urine,Catheterized 07/23/19 17:00 Catheter Tip Culture - Preliminary Catheter Tip 07/23/19 17:10 Catheter Tip Culture - Preliminary Catheter Tip Assessment and Plan Assessment: 1-patient with low-grade fever and elevated white count in this patient admitted to hospital with acute gallstone pancreatitis status post open cholecystectomy in this patient who did have evidence of her renal failure as well as respiratory failure currently extubated and is undergoing hemodialysis patient did not have any OR cultures 1 of the blood culture is positive for coagulase- negative staph we will follow blood culture has been negative source of this elevated white count and low-grade fever more likely abdominal with concern for possible pancreatic pseudocyst formation (1) Fever Current Visit: Yes Status: Acute Code(s): R50.9 - FEVER, UNSPECIFIED SNOMED Code(s): 270268024 (2) Leukocytosis Current Visit: Yes Status: Acute Code(s): D72.829 - ELEVATED WHITE BLOOD CELL COUNT, UNSPECIFIED SNOMED Code(s): 995764283 Plan: 1-we will discuss with surgery to obtain a CT of abdominal pelvis preferably with oral contrast if possible 2-patient with continued on cefepime Flagyl and vancomycin just added We will follow on clinical condition and cultures to further adjust medication if needed Thank you for this consultation we will follow the patient along with you Time with Patient: Greater than 30
[2019-07-24 23:50] LABS: Protein, Total 4.7 g/dL (6.2-8.2)
[2019-07-24 23:51] LABS: Glucose,Whole Blood 189 mg/dL (75-99)
[2019-07-24 23:59] LABS: Folate, Serum 8.3 ng/mL
[2019-07-25] MEDS: INSULIN ASPART (NovoLOG) 100 UNIT/ML VIAL SQ SCH ×5 (00:04→23:44)
[2019-07-25] MEDS: metroNIDAZOLE-NS PMX 500 MG in SALINE 1 100ML.BAG IVPB SCH ×4 (00:15→23:44)
[2019-07-25] MEDS: HEPARIN SODIUM,PORCINE 5,000 UNIT/ML 1 ML VIAL SQ SCH ×4 (00:16→23:44)
[2019-07-25 03:54] LABS: Hemoglobin A1C 5.1 % (4.0-6.0)
[2019-07-25] MEDS: CEFEPIME 1 GM in SODIUM CHLORIDE 0.9% 50 ML IVPB SCH (04:10)
[2019-07-25 05:27] LABS: HCT 21.1 % (39.0-53.0); Hypochromasia Slight; MCH 31.9 pg (25.0-35.0); MCHC 33.2 g/dL (31.0-37.0); MCV 96.1 fL (80.0-100.0); Mean Platelet Volume 9.2; Platelet Count 322 k/uL (150-450); RDW 15.2 % (11.5-15.5); WBC 31.5 k/uL (3.8-10.6)
[2019-07-25 05:34] LABS: Albumin 2.7 g/dL (3.5-5.0); Calcium 7.9 mg/dL (8.4-10.2); Potassium 5.3 mmol/L (3.5-5.1); Total Bilirubin 0.9 mg/dL (0.2-1.3); Total Protein 5.4 g/dL (6.3-8.2)
[2019-07-25 05:47] LABS: Band Neutrophils % 2 %; Basophils # (M) 0.32 k/uL (0-0.2); Eosinophils # (M) 0.63 k/uL (0-0.7); Lymphocytes # (M) 3.15 k/uL (1.0-4.8); Metamyelocytes # (M) 0.95 k/uL (0); Metamyelocytes % 3 %; Monocytes # (M) 0.63 k/uL (0-1.0); Neutrophils % (M) 80 %; Nucleated Red Blood Cells 0 /100 WBC (0-0); Total Cells Counted 100
[2019-07-25 05:48] LABS: Polychromasia Present
[2019-07-25 06:07] LABS: Glucose,Whole Blood 175 mg/dL (75-99)
[2019-07-25] MEDS: CALCIUM ACETATE 667 MG TAB PO SCH ×3 (06:18→16:05)
--- NOTE | 2019-07-25 07:53 | P.PN ---
Progress Note - Text Progress Note Date: 07/24/19 the patient is more awake today. He is able to a low. He is currently on dialysis. On exam his vital signs are stable. Abdomen soft. Incision sites clean dry intact. MARICHUY drain has mainly serosanguineous fluid. Status post open post eopen cholecystectomy for gallstone pancreatitiss. Patien t's severe peritonitis is resolving. His metabolic encephalopathy is improving. He'll continue to have supportive care.
[2019-07-25] MEDS: IPRATROPIUM-ALBUTEROL 3 ML NEB INHALATION SCH ×4 (07:57→20:01)
[2019-07-25] MEDS: PANTOPRAZOLE 40 MG/10 ML VIAL IV SCH (08:18)
[2019-07-25] MEDS ORDERED: MIDODRINE 5 MG TAB PO SCH (11:30)
[2019-07-25] MEDS ORDERED: MIDODRINE 5 MG TAB PO PRN (11:30)
[2019-07-25 11:59] LABS: Glucose,Whole Blood 143 mg/dL (75-99)
[2019-07-25] MEDS ORDERED: HEPARIN SODIUM,PORCINE 5,000 UNIT/ML 1 ML VIAL ONE (12:00)
[2019-07-25] MEDS: NOREPINEPHRINE 32 MG in SODIUM CHLORIDE 0.9% 218 ML IV SCH (12:28)
--- NOTE | 2019-07-25 13:13 | P.PN ---
Subjective Progress Note Date: 07/25/19 CHIEF COMPLAINT: Abdominal pain HISTORY OF PRESENT ILLNESS: Patient is status post open cholecystectomy. Patient examined in the ICU with Dr. Rosales. No family present. Patient is more awake today in comparison to yesterday. He is tolerating tube feeding with minimal residuals. PHYSICAL EXAM: VITAL SIGNS: Reviewed. GENERAL: Well-developed in no acute distress HEENT: No sclera icterus. Extraocular movements grossly intact. Moist buccal mucosa. Head is atraumatic, normocephalic. ABDOMEN: Soft. Nondistended. Dressing CDI. MARICHUY with serosanguineous drainage. NEUROLOGIC: Patient appears more alert today. ASSESSMENT: 1. Abdominal pain 2. Cholelithiasis, Possible choledocholithiasis 3. Pancreatitis 4. Hyperbilirubinemia 5. Transaminitis PLAN: Continue management per medical team Continue to monitor MARICHUY drainage Continue tube feedings as tolerated Continue antibiotics per ID. Continue to monitor WBC. Nurse practitioner note has been reviewed by physician. Signing provider agrees with the documented findings, assessment, and plan of care. Objective - Vital Signs Vital signs: Vital Signs Temp 99.9 F H 07/25/19 11:00 Pulse 122 H 07/25/19 12:00 Resp 31 H 07/25/19 12:00 BP 130/81 07/25/19 12:00 Pulse Ox 91 L 07/25/19 12:00 Intake & Output 07/24/19 07/25/19 07/25/19 18:59 06:59 18:59 Intake Total 1380 770 350 Output Total 2185 185 105 Balance -805 585 245 Weight 126.6 kg 126.6 kg Intake: IV 320 120 150 0.9 120 120 50 metroNIDAZOLE-NS PMX 500 200 100 mg In Saline 1 100ml.bag @ 100 mls/hr IVPB Q8HR [facility] Rx#:[id number] Intake, IV Titration 500 Amount Vancomycin 2,250 mg In 500 Sodium Chloride 0.9% 500 ml 500 ml @ 167 mls/hr IVPB ONCE ONE Rx#: [id number] Tube Feeding 410 650 200 Other 150 Output: Drainage 70 50 Right Abdomen 70 50 Urine 115 135 105 Hemodialysis 2000 Other: Voiding Method Indwelling Catheter Indwelling Catheter Indwelling Catheter ABP, PAP, CO, CI - Last Documented Arterial Blood Pressure 96/53 - Labs CBC & Chem 7: 07/25/19 04:31 07/25/19 04:31 Labs: Abnormal Lab Results - Last 24 Hours (Table) 07/24/19 07/24/19 07/24/19 Range/Units 15:56 15:56 18:22 WBC (3.8-10.6) k/uL RBC (4.30-5.90) m/uL Hgb (13.0-17.5) gm/dL Hct (39.0-53.0) % Neutrophils # (Manual) (1.3-7.7) k/uL Basophils # (Manual) (0-0.2) k/uL Metamyelocytes # (Man) (0) k/uL Potassium (3.5-5.1) mmol/L Chloride (98-107) mmol/L Carbon Dioxide (22-30) mmol/L BUN (9-20) mg/dL Creatinine (0.66-1.25) mg/dL Glucose (74-99) mg/dL POC Glucose (mg/dL) 159 H (75-99) mg/dL Calcium (8.4-10.2) mg/dL AST (17-59) U/L ALT (4-49) U/L Alkaline Phosphatase (38-126) U/L Total Protein (6.3-8.2) g/dL Total Protein (PEP) 4.7 L (6.2-8.2) g/dL Albumin (3.5-5.0) g/dL Vitamin B12 1514.0 H (200.0-944.0) pg/mL TSH 5.300 H (0.465-4.680) mIU/L Free T4 0.73 L (0.78-2.19) ng/dL 07/24/19 07/25/19 07/25/19 Range/Units 23:50 04:31 04:31 WBC 31.5 H (3.8-10.6) k/uL RBC 2.20 L (4.30-5.90) m/uL Hgb 7.0 L (13.0-17.5) gm/dL Hct 21.1 L (39.0-53.0) % Neutrophils # (Manual) 25.80 H (1.3-7.7) k/uL Basophils # (Manual) 0.32 H (0-0.2) k/uL Metamyelocytes # (Man) 0.95 H (0) k/uL Potassium 5.3 H (3.5-5.1) mmol/L Chloride 109 H (98-107) mmol/L Carbon Dioxide 15 L (22-30) mmol/L BUN 118 H* (9-20) mg/dL Creatinine 6.60 H (0.66-1.25) mg/dL Glucose 157 H (74-99) mg/dL POC Glucose (mg/dL) 189 H (75-99) mg/dL Calcium 7.9 L (8.4-10.2) mg/dL AST 63 H (17-59) U/L ALT 58 H (4-49) U/L Alkaline Phosphatase 191 H (38-126) U/L Total Protein 5.4 L (6.3-8.2) g/dL Total Protein (PEP) (6.2-8.2) g/dL Albumin 2.7 L (3.5-5.0) g/dL Vitamin B12 (200.0-944.0) pg/mL TSH (0.465-4.680) mIU/L Free T4 (0.78-2.19) ng/dL 07/25/19 07/25/19 Range/Units 06:06 11:58 WBC (3.8-10.6) k/uL RBC (4.30-5.90) m/uL Hgb (13.0-17.5) gm/dL Hct (39.0-53.0) % Neutrophils # (Manual) (1.3-7.7) k/uL Basophils # (Manual) (0-0.2) k/uL Metamyelocytes # (Man) (0) k/uL Potassium (3.5-5.1) mmol/L Chloride (98-107) mmol/L Carbon Dioxide (22-30) mmol/L BUN (9-20) mg/dL Creatinine (0.66-1.25) mg/dL Glucose (74-99) mg/dL POC Glucose (mg/dL) 175 H 143 H (75-99) mg/dL Calcium (8.4-10.2) mg/dL AST (17-59) U/L ALT (4-49) U/L Alkaline Phosphatase (38-126) U/L Total Protein (6.3-8.2) g/dL Total Protein (PEP) (6.2-8.2) g/dL Albumin (3.5-5.0) g/dL Vitamin B12 (200.0-944.0) pg/mL TSH (0.465-4.680) mIU/L Free T4 (0.78-2.19) ng/dL Microbiology - Last 24 Hours (Table) 07/23/19 10:40 Blood Culture - Preliminary Blood No Growth after 48 hours 07/24/19 00:00 Urine Culture - Final Urine,Catheterized 07/23/19 10:17 Blood Culture Gram Stain - Preliminary Blood Blood Culture - Preliminary Coagulase Negative Staph 07/23/19 17:10 Catheter Tip Culture - Preliminary Catheter Tip 07/23/19 17:00 Catheter Tip Culture - Preliminary Catheter Tip 07/19/19 10:20 Blood Culture - Preliminary Blood No Growth after 120 hours 07/23/19 10:17 Blood Culture - Preliminary Blood No Growth after 24 hours 07/23/19 10:17 Blood Culture - Final Blood
--- NOTE | 2019-07-25 13:26 | P.PN ---
Subjective covering Dr. Lopez starting 07/24/2019 This is a pleasant 54-year-old Patient of Dr. Malloy. with past medical history of hypertension and hearing difficulty. Presents with upper abdominal epigastric pain found to have acute pancreatitis secondary to acute cholecystitis with choledocholithiasis. He is status post cholecystectomy on and 07/17. Also patientwas in acute kidney injury and renal failure and eventually needed hemodialysis which is undergoing currently and acute hypoxic respiratory failure status post temporal intubation and extubation. Sepsis is also suspected that's why patient was started on antibiotics and currently is on cefepime and Flagyl. patient remains in the ICU and confused although at times he can wake up and talk with some sentences. However when I saw the patient he was still confused and currently waking up for verbal and tactile stimuli.vitals showing tachycardia with heart rate 114-120. he is saturating 93% on 3 L oxygen.Blood pressure 105/59.patient labs showed leukocytosis of 30 2.9K. Hemoglobin stable at 7.3.liver enzymes are slightly elevated. 07/25/2019 Patient mentation is partially improved, the open eyes spontaneously, he follows commands, he answers some questions appropriately, he knows where he is "I am at [facility]" . Patient pulled out his NG tube today, he has no appetite, no abdominal pain or tenderness however patient is poor historian.patient is still febrile 99.9 today and tachycardic 122 and tachypneic 31. He is saturating 93% on room air.he still have significant leukocytosis of 30 1.5K, hemoglobin is 7.0.sugar is controlled and divided enzymes mildly elevated.MARICHUY drain is in place. Patients will need a CAT scan of the abdomen and pelvis with oral contrast to rule out abscess, recommended by ID team currently patient is on Flagyl, cefepime and IV vancomycin. Review of systems CONSTITUTIONAL: No fever, no malaise, no fatigue. HEENT: No recent visual problems or hearing problems. Denied any sore throat. CARDIOVASCULAR: No orthopnea, PND, no palpitations, no syncope. PULMONARY: No shortness of breath, no cough, no hemoptysis. GASTROINTESTINAL: No diarrhea, no nausea, no vomiting, no abdominal pain. Normoactive bowel sounds. NEUROLOGICAL: No headaches, no weakness, no numbness. HEMATOLOGICAL: Denies any bleeding or petechiae. GENITOURINARY: Denies any burning micturition, frequency, or urgency. MUSCULOSKELETAL/RHEUMATOLOGICAL: Denies any joint pain, swelling, or any muscle pain. ENDOCRINE: Denies any polyuria or polydipsia. Active Medications Generic Name Dose Route Start Last Admin Trade Name Freq PRN Reason Stop Dose Admin Acetaminophen 650 mg 07/13/19 04:19 07/21/19 04:04 Tylenol Tab PO 650 mg Q4HR PRN Administration Fever and/or Mild Pain Albuterol/Ipratropium 3 ml 07/23/19 08:00 07/25/19 11:25 Duoneb 0.5 Mg-3 Mg/3 Ml Soln INHALATION Not Given RT-QID OBEY Albuterol/Ipratropium 3 ml 07/22/19 23:18 Duoneb 0.5 Mg-3 Mg/3 Ml Soln INHALATION RT-Q2H PRN Shortness Of Breath Or Wheezing Calcium Acetate 667 mg 07/20/19 12:30 07/25/19 12:28 Phoslo PO Not Given TID-W/MEALS OBEY Darbepoetin Mj 12.5 mcg 07/22/19 14:00 07/22/19 16:53 Aranesp SQ 12.5 mcg Q7D OBEY Administration Heparin Sodium (Porcine) 5,000 unit 07/19/19 16:00 07/25/19 08:18 Heparin SQ 5,000 unit Q8HR [facility] Administration Hydromorphone HCl 2 mg 07/16/19 14:56 07/22/19 03:30 Dilaudid IVP 2 mg Q2H PRN Administration Moderate Pain Metronidazole 500 mg/ IV 100 mls @ 100 mls/hr 07/11/19 08:00 07/25/19 08:18 Solution IVPB 100 mls/hr Q8HR OBE[facility] Administration Cefepime HCl 1 gm/ Sodium 50 mls @ 100 mls/hr 07/13/19 02:00 07/25/19 04:10 Chloride IVPB 100 mls/hr Q24H OBE[facility] Administration Norepinephrine Bitartrate 32 250 mls @ 3.253 mls/hr 07/14/19 13:15 07/25/19 1 2:28 mg/ Sodium Chloride IV Not Given .Q24H O[facility]Y Protocol 0.05 MCG/KG/MIN Insulin Aspart 0 unit 07/20/19 00:00 07/25/19 12:25 Novolog SQ 1 unit Q6H O[facility]Y Administration Protocol Iopamidol 30 ml 07/25/19 12:55 Isovue-300 (For Oral Use) PO 07/26/19 12:[address] Scan Melatonin 3 mg 07/24/19 20:47 07/24/19 22:20 Melatonin PO 3 mg HS PRN Administration Insomnia Midodrine 10 mg 07/25/19 11:30 07/25/19 12:23 Proamatine PO 10 mg DAILY PRN Administration HYPOTENSION WITH DIALYSIS Miscellaneous Information 1 each 07/20/19 13:33 Pharmacy To Dose Iv Vancomycin MISCELLANE DIRECTED PRN Per Protocol Naloxone HCl 0.2 mg 07/11/19 07:53 Narcan IV Q2M PRN Opioid Reversal Ondansetron HCl 4 mg 07/11/19 07:53 Zofran IVP Q8HR PRN Nausea And Vomiting Pantoprazole Sodium 40 mg 07/13/19 09:00 07/25/19 08:18 Protonix IV 40 mg DAILY OBEY Administration Objective - Vital Signs Vital signs: Vital Signs Temp 99.9 F H 07/25/19 11:00 Pulse 122 H 07/25/19 12:00 Resp 31 H 07/25/19 12:00 BP 130/81 07/25/19 12:00 Pulse Ox 91 L 07/25/19 12:00 Intake & Output 07/24/19 07/25/19 07/25/19 18:59 06:59 18:59 Intake Total 1380 770 350 Output Total 2185 185 105 Balance -805 585 245 Weight 126.6 kg 126.6 kg Intake: IV 320 120 150 0.9 120 120 50 metroNIDAZOLE-NS PMX 500 200 100 mg In Saline 1 100ml.bag @ 100 mls/hr IVPB Q8HR [facility] Rx#:[id number] Intake, IV Titration 500 Amount Vancomycin 2,250 mg In 500 Sodium Chloride 0.9% 500 ml 500 ml @ 167 mls/hr IVPB ONCE ONE Rx#: [id number] Tube Feeding 410 650 200 Other 150 Output: Drainage 70 50 Right Abdomen 70 50 Urine 115 135 105 Hemodialysis 2000 Other: Voiding Method Indwelling Catheter Indwelling Catheter Indwelling Catheter ABP, PAP, CO, CI - Last Documented Arterial Blood Pressure 96/53 - Exam -GENERAL: The patient is more awake today however he still confused. HEENT: Pupils are round and equally reacting to light. EOMI. No scleral icterus. No conjunctival pallor. Normocephalic, atraumatic. No pharyngeal erythema. No thyromegaly. CARDIOVASCULAR: S1 and S2 present. No murmurs, rubs, or gallops. PULMONARY: Chest is clear to auscultation, no wheezing or crackles. -ABDOMEN: Soft, nontender, nondistended, normoactive bowel sounds. No palpable organomegaly. right surgical wound is closed with dressing is in place. MARICHUY drain is in place with serosanguineous drainage. Left femoral catheter. MUSCULOSKELETAL: No joint swelling or deformity. EXTREMITIES: No cyanosis, clubbing, or pedal edema. NEUROLOGICAL: Gross neurological examination did not reveal any focal deficits. SKIN: No rashes. no petechiae. - Labs CBC & Chem 7: 07/25/19 04:31 07/25/19 04:31 Labs: Abnormal Lab Results - Last 24 Hours (Table) 07/24/19 07/24/19 07/24/19 Range/Units 15:56 15:56 18:22 WBC (3.8-10.6) k/uL RBC (4.30-5.90) m/uL Hgb (13.0-17.5) gm/dL Hct (39.0-53.0) % Neutrophils # (Manual) (1.3-7.7) k/uL Basophils # (Manual) (0-0.2) k/uL Metamyelocytes # (Man) (0) k/uL Potassium (3.5-5.1) mmol/L Chloride (98-107) mmol/L Carbon Dioxide (22-30) mmol/L BUN (9-20) mg/dL Creatinine (0.66-1.25) mg/dL Glucose (74-99) mg/dL POC Glucose (mg/dL) 159 H (75-99) mg/dL Calcium (8.4-10.2) mg/dL AST (17-59) U/L ALT (4-49) U/L Alkaline Phosphatase (38-126) U/L Total Protein (6.3-8.2) g/dL Total Protein (PEP) 4.7 L (6.2-8.2) g/dL Albumin (3.5-5.0) g/dL Vitamin B12 1514.0 H (200.0-944.0) pg/mL TSH 5.300 H (0.465-4.680) mIU/L Free T4 0.73 L (0.78-2.19) ng/dL 07/24/19 07/25/19 07/25/19 Range/Units 23:50 04:31 04:31 WBC 31.5 H (3.8-10.6) k/uL RBC 2.20 L (4.30-5.90) m/uL Hgb 7.0 L (13.0-17.5) gm/dL Hct 21.1 L (39.0-53.0) % Neutrophils # (Manual) 25.80 H (1.3-7.7) k/uL Basophils # (Manual) 0.32 H (0-0.2) k/uL Metamyelocytes # (Man) 0.95 H (0) k/uL Potassium 5.3 H (3.5-5.1) mmol/L Chloride 109 H (98-107) mmol/L Carbon Dioxide 15 L (22-30) mmol/L BUN 118 H* (9-20) mg/dL Creatinine 6.60 H (0.66-1.25) mg/dL Glucose 157 H (74-99) mg/dL POC Glucose (mg/dL) 189 H (75-99) mg/dL Calcium 7.9 L (8.4-10.2) mg/dL AST 63 H (17-59) U/L ALT 58 H (4-49) U/L Alkaline Phosphatase 191 H (38-126) U/L Total Protein 5.4 L (6.3-8.2) g/dL Total Protein (PEP) (6.2-8.2) g/dL Albumin 2.7 L (3.5-5.0) g/dL Vitamin B12 (200.0-944.0) pg/mL TSH (0.465-4.680) mIU/L Free T4 (0.78-2.19) ng/dL 07/25/19 07/25/19 Range/Units 06:06 11:58 WBC (3.8-10.6) k/uL RBC (4.30-5.90) m/uL Hgb (13.0-17.5) gm/dL Hct (39.0-53.0) % Neutrophils # (Manual) (1.3-7.7) k/uL Basophils # (Manual) (0-0.2) k/uL Metamyelocytes # (Man) (0) k/uL Potassium (3.5-5.1) mmol/L Chloride (98-107) mmol/L Carbon Dioxide (22-30) mmol/L BUN (9-20) mg/dL Creatinine (0.66-1.25) mg/dL Glucose (74-99) mg/dL POC Glucose (mg/dL) 175 H 143 H (75-99) mg/dL Calcium (8.4-10.2) mg/dL AST (17-59) U/L ALT (4-49) U/L Alkaline Phosphatase (38-126) U/L Total Protein (6.3-8.2) g/dL Total Protein (PEP) (6.2-8.2) g/dL Albumin (3.5-5.0) g/dL Vitamin B12 (200.0-944.0) pg/mL TSH (0.465-4.680) mIU/L Free T4 (0.78-2.19) ng/dL Microbiology - Last 24 Hours (Table) 07/23/19 10:40 Blood Culture - Preliminary Blood No Growth after 48 hours 07/24/19 00:00 Urine Culture - Final Urine,Catheterized 07/23/19 10:17 Blood Culture Gram Stain - Preliminary Blood Blood Culture - Preliminary Coagulase Negative Staph 07/23/19 17:10 Catheter Tip Culture - Preliminary Catheter Tip 07/23/19 17:00 Catheter Tip Culture - Preliminary Catheter Tip 07/19/19 10:20 Blood Culture - Preliminary Blood No Growth after 120 hours 07/23/19 10:17 Blood Culture - Preliminary Blood No Growth after 24 hours 07/23/19 10:17 Blood Culture - Final Blood Assessment and Plan Assessment: gallstone pancreatitis with acute cholecystitis and choledocholithiasis. Status post cholecystectomy Possible sepsis secondary to above Acute hypoxic respiratory failure Acute kidney injury needing hemodialysis Hypertension history of hearing difficulty Plan: this is a pleasant 54 years old male who presents with gallstone pancreatitis status post cholecystectomy. Continue with antibiotics with cefepime and Flagyl and IV vancomycin.follow-up recommendation by infectious disease. Follow-up recommendation by other consultants including registered nurse step down, surgical service and critical care team. Follow-up CAT scan of the abdomen/pelvis Labs and medication were reviewed.. Continue same treatment. Continue with symptomatic treatment. Resume home medication. Monitor lytes and vitals. DVT and GI prophylaxis. Further recommendations of the clinical course of the patient DVT prophylaxis: Subcutaneous heparin GI Prophylaxis: Protonix Prognosis is guarded
--- NOTE | 2019-07-25 14:10 | P.PN ---
Subjective Progress Note Date: 07/25/19 Principal diagnosis: Pt is seen for f/u for SHIMA. He ramins HD dependent with requirement of daily HD.Had 2 L UF yesterday.Over all volume status has improved. Pt is awake. Comfortable. NG tube in place. UOP about 25cc/hr. Objective - Vital Signs Vital signs: Vital Signs Temp 99.9 F H 07/25/19 11:00 Pulse 122 H 07/25/19 12:00 Resp 31 H 07/25/19 12:00 BP 130/81 07/25/19 12:00 Pulse Ox 91 L 07/25/19 12:00 Intake & Output 07/24/19 07/25/19 07/25/19 18:59 06:59 18:59 Intake Total 1380 770 350 Output Total 2185 185 105 Balance -805 585 245 Weight 126.6 kg 126.6 kg Intake: IV 320 120 150 0.9 120 120 50 metroNIDAZOLE-NS PMX 500 200 100 mg In Saline 1 100ml.bag @ 100 mls/hr IVPB Q8HR [facility] Rx#:[id number] Intake, IV Titration 500 Amount Vancomycin 2,250 mg In 500 Sodium Chloride 0.9% 500 ml 500 ml @ 167 mls/hr IVPB ONCE ONE Rx#: [id number] Tube Feeding 410 650 200 Other 150 Output: Drainage 70 50 Right Abdomen 70 50 Urine 115 135 105 Hemodialysis 1999 Other: Voiding Method Indwelling Catheter Indwelling Catheter Indwelling Catheter ABP, PAP, CO, CI - Last Documented Arterial Blood Pressure 96/53 - Exam Awake, comfortable. Tolerating tube feedings. - Constitutional General appearance: Present: average body habitus, cooperative, no acute distress - EENT Eyes: Present: PERRLA, normal appearance - Neck Neck: Present: normal ROM - Respiratory Respiratory: bilateral: CTA - Cardiovascular Rhythm: regular Heart sounds: normal: S1, S2 - Peripheral edema leg Peripheral Edema: bilateral: 2+ - Gastrointestinal General gastrointestinal: Present: decreased bowel sounds, distended, soft - Integumentary Integumentary: Present: normal, pale - Neurologic Neurologic Comment(s): DYER AND WASHER grossly intact. Weakness all over. Difficult to move limbs. - Musculoskeletal Musculoskeletal: Present: generalized weakness - Labs CBC & Chem 7: 07/25/19 04:31 07/25/19 04:31 Labs: Abnormal Lab Results - Last 24 Hours (Table) 12/23/19 12/23/19 12/23/19 Range/Units 15:56 15:56 18:22 WBC (3.8-10.6) k/uL RBC (4.30-5.90) m/uL Hgb (13.0-17.5) gm/dL Hct (39.0-53.0) % Neutrophils # (Manual) (1.3-7.7) k/uL Basophils # (Manual) (0-0.2) k/uL Metamyelocytes # (Man) (0) k/uL Potassium (3.5-5.1) mmol/L Chloride (98-107) mmol/L Carbon Dioxide (22-30) mmol/L BUN (9-20) mg/dL Creatinine (0.66-1.25) mg/dL Glucose (74-99) mg/dL POC Glucose (mg/dL) 159 H (75-99) mg/dL Calcium (8.4-10.2) mg/dL AST (17-59) U/L ALT (4-49) U/L Alkaline Phosphatase (38-126) U/L Total Protein (6.3-8.2) g/dL Total Protein (PEP) 4.7 L (6.2-8.2) g/dL Albumin (3.5-5.0) g/dL Vitamin B12 1514.0 H (200.0-944.0) pg/mL TSH 5.300 H (0.465-4.680) mIU/L Free T4 0.73 L (0.78-2.19) ng/dL 07/24/19 07/25/19 07/25/19 Range/Units 23:50 04:31 04:31 WBC 31.5 H (3.8-10.6) k/uL RBC 2.20 L (4.30-5.90) m/uL Hgb 7.0 L (13.0-17.5) gm/dL Hct 21.1 L (39.0-53.0) % Neutrophils # (Manual) 25.80 H (1.3-7.7) k/uL Basophils # (Manual) 0.32 H (0-0.2) k/uL Metamyelocytes # (Man) 0.95 H (0) k/uL Potassium 5.3 H (3.5-5.1) mmol/L Chloride 109 H (98-107) mmol/L Carbon Dioxide 15 L (22-30) mmol/L BUN 118 H* (9-20) mg/dL Creatinine 6.60 H (0.66-1.25) mg/dL Glucose 157 H (74-99) mg/dL POC Glucose (mg/dL) 189 H (75-99) mg/dL Calcium 7.9 L (8.4-10.2) mg/dL AST 63 H (17-59) U/L ALT 58 H (4-49) U/L Alkaline Phosphatase 191 H (38-126) U/L Total Protein 5.4 L (6.3-8.2) g/dL Total Protein (PEP) (6.2-8.2) g/dL Albumin 2.7 L (3.5-5.0) g/dL Vitamin B12 (200.0-944.0) pg/mL TSH (0.465-4.680) mIU/L Free T4 (0.78-2.19) ng/dL 07/25/19 07/25/19 Range/Units 06:06 11:58 WBC (3.8-10.6) k/uL RBC (4.30-5.90) m/uL Hgb (13.0-17.5) gm/dL Hct (39.0-53.0) % Neutrophils # (Manual) (1.3-7.7) k/uL Basophils # (Manual) (0-0.2) k/uL Metamyelocytes # (Man) (0) k/uL Potassium (3.5-5.1) mmol/L Chloride (98-107) mmol/L Carbon Dioxide (22-30) mmol/L BUN (9-20) mg/dL Creatinine (0.66-1.25) mg/dL Glucose (74-99) mg/dL POC Glucose (mg/dL) 175 H 143 H (75-99) mg/dL Calcium (8.4-10.2) mg/dL AST (17-59) U/L ALT (4-49) U/L Alkaline Phosphatase (38-126) U/L Total Protein (6.3-8.2) g/dL Total Protein (PEP) (6.2-8.2) g/dL Albumin (3.5-5.0) g/dL Vitamin B12 (200.0-944.0) pg/mL TSH (0.465-4.680) mIU/L Free T4 (0.78-2.19) ng/dL Microbiology - Last 24 Hours (Table) 07/23/19 10:17 Blood Culture - Preliminary Blood No Growth after 48 hours 07/23/19 10:40 Blood Culture - Preliminary Blood No Growth after 48 hours 07/24/19 00:00 Urine Culture - Final Urine,Catheterized 07/23/19 10:17 Blood Culture Gram Stain - Preliminary Blood Blood Culture - Preliminary Coagulase Negative Staph 07/23/19 17:10 Catheter Tip Culture - Preliminary Catheter Tip 07/23/19 17:00 Catheter Tip Culture - Preliminary Catheter Tip 07/19/19 10:20 Blood Culture - Preliminary Blood No Growth after 120 hours 07/23/19 10:17 Blood Culture - Final Blood Assessment and Plan Assessment: 1. SHIMA, non oliguric, HD dependent. We will dialyze again today and then hold in am. D/c vancomycin 2. Severe pancreatitis, improved. 3. Metabolic acidosis, improved. 4. Severe volume overload, improving. 5. Acute hypoxic respiratory failure, s/p extubation. 6. Anemia, multifactorial, no bleeding noted currently. Maintained on Aranesp. 7. Hyperphosphatemia, on binders PLAN HD today. UF as tolerated. Midodrine pre HD Check labs in am Check phos in am. D/c Vancomycin. Continue to monitor for recovery of renal function. Hold HD in am. Next Rx on 07/27/19
--- NOTE | 2019-07-25 14:17 | P.PN ---
Subjective Progress Note Date: 07/25/19 Principal diagnosis: Acute gallstone pancreatitis On 07/23/2019 the patient is postop day #6 the patient underwent open cholecystectomy for gallstone pancreatitis and the patient multisystem organ failure. I was able to extubate the patient. As a complication of hisdisease the patient developed an acute kidney injury. Is currently on hemodialysis on a daily basis. A total of 4 L of fluid was ultrafiltrate yesterday. His urine output has improved and the patient is producing around 15-20 mL an hour of urine output. He is currently undergoing dialysis and the goal is to ultrafiltrate him for another 4 L today. Chest x-ray shows small bilateral pleural effusion slightly worse on the left. NG tube is in place. He is receiving enteral feeding for nutritional support. He was able to tolerate that. He is admitted intensive an hour of vital high protein. No fever. No chills. No aspiration. This surgical wound site is dry clean and intact. MARICHUY drain is in place. He is still on a combination of antibiotics utilizing cefepime and Flagyl. White cell count remains elevated at 30. The pro- calcitonin level was sent and the level was at 2.25. As such, there is an underlying concern for sepsis. I was concerned about underlying infection. I added vancomycin to his regimen. Nevertheless the cultures are negative. The catheter is obviously new within the patient has a right femoral hemodialysis catheter that was inserted 2 days ago and he has a left IJ triple-lumen catheter was inserted on 07/13/2019 He is slightly tachycardic. He is having a low- grade fever of 100.1 On 07/24/2019, patient is now postoperative day #7. He is status post open ch olecystectomy for gallstone pancreatitis. And he developed multisystem organ failure. Patient was eventually extubated, however his overall status remains very marginal. Patient is on 3 L nasal cannula, receiving hemodialysis and ultrafiltration. Chest x-ray showed mostly bibasilar atelectasis and small bilateral pleural effusions. Underlying pneumonia is not entirely ruled out, felt to be less likely. Patient seems to be nonverbal. And has been as such since admission, mental status is questionable, hence I recommended neurology evaluation. WBC count today is 32.9 hemoglobin is 7.3. Blood cultures have been negative on along. Catheter tip cultures are pending. Patient remains on vancomycin. He is also on metronidazole. Transaminases were relatively a bit elevated. BUN is 119 creatinine is 7.12 today On 07/25/2019 patient seen in follow-up in the intensive care unit, is awake and alert, but very weak, he is nodding his head appropriately to simple questions, however he is not verbalizing, also has severe generalized weakness, and he is not able to squeeze with his hands on command. Yesterday he had hemodialysis with removal of 2 L of fluid, today he is having 3-1/2 L of fluid removed, blood pressure seems to be tolerating hemodialysis better today, Midrin was given, denies any respiratory difficulty, lung sounds are coarse, but good air entry noted bilaterally, room air pulse ox is 93%, low-grade fevers, slightly tachycardic on the monitor, sinus mechanism. Not in any vasopressor support. This morning he pulled out his NG tube, and he is awaiting evaluation by speech therapy for bedside swallow evaluation, current antibiotics include cefepime and Flagyl and vancomycin. Cultures are negative thus far including sputum, blood cultures and urine culture, isolated blood culture from 07/23/2019 showed coagulase-negative staph likely contaminant. ID service is following. Objective - Vital Signs Vital signs: Vital Signs Temp 99.9 F H 07/25/19 11:00 Pulse 122 H 07/25/19 12:00 Resp 31 H 07/25/19 12:00 BP 130/81 07/25/19 12:00 Pulse Ox 91 L 07/25/19 12:00 Intake & Output 07/24/19 07/25/19 07/25/19 18:59 06:59 18:59 Intake Total 1380 770 350 Output Total 2185 185 105 Balance -805 585 245 Weight 126.6 kg 126.6 kg Intake: IV 320 120 150 0.9 120 120 50 metroNIDAZOLE-NS PMX 500 200 100 mg In Saline 1 100ml.bag @ 100 mls/hr IVPB Q8HR [facility] Rx#:[id number] Intake, IV Titration 500 Amount Vancomycin 2,250 mg In 500 Sodium Chloride 0.9% 500 ml 500 ml @ 167 mls/hr IVPB ONCE ONE Rx#: [id number] Tube Feeding 410 650 200 Other 150 Output: Drainage 70 50 Right Abdomen 70 50 Urine 115 135 105 Hemodialysis 1999 Other: Voiding Method Indwelling Catheter Indwelling Catheter Indwelling Catheter ABP, PAP, CO, CI - Last Documented Arterial Blood Pressure 96/53 - Exam GENERAL EXAM: Alert, very weak, 54-year-old white male, on room air, with a pulse ox of 93%, having hemodialysis done, nods has appropriately to simple questions, but is unable to verbalize, possibility of a metabolic encephalopathy component or severe generalized weakness comfortable in no apparent distress. HEAD: Normocephalic/atraumatic. EYES: Normal reaction of pupils, equal size. Conjunctiva pink, sclera white. NOSE: Clear with pink turbinates. THROAT: No erythema or exudates. NECK: No masses, no JVD, no thyroid enlargement, no adenopathy. CHEST: No chest wall deformity. Symmetrical expansion. LUNGS: Equal air entry with coarse breath sounds, but no wheeze, rhonchi or dullness. CVS: Regular rate and rhythm, normal S1 and S2, no gallops, no murmurs, no rubs ABDOMEN: Soft, nontender. No hepatosplenomegaly, normal bowel sounds, no guarding or rigidity. EXTREMITIES: No clubbing, 1+ edema involving upper and lower extremities, and trunk, improving with ultrafiltration, no cyanosis, 2+ pulses and upper and lower extremities. MUSCULOSKELETAL: Muscle strength and tone normal. SPINE: No scoliosis or deformity SKIN: No rashes CENTRAL NERVOUS SYSTEM: Alert and oriented -3. No focal deficits, tone is normal in all 4 extremities. PSYCHIATRIC: Alert and oriented -3. Appropriate affect. Intact judgment and insight. - Labs CBC & Chem 7: 07/25/19 04:31 07/25/19 04:31 Labs: Abnormal Lab Results - Last 24 Hours (Table) 07/24/19 07/24/19 07/24/19 Range/Units 15:56 15:56 18:22 WBC (3.8-10.6) k/uL RBC (4.30-5.90) m/uL Hgb (13.0-17.5) gm/dL Hct (39.0-53.0) % Neutrophils # (Manual) (1.3-7.7) k/uL Basophils # (Manual) (0-0.2) k/uL Metamyelocytes # (Man) (0) k/uL Potassium (3.5-5.1) mmol/L Chloride (98-107) mmol/L Carbon Dioxide (22-30) mmol/L BUN (9-20) mg/dL Creatinine (0.66-1.25) mg/dL Glucose (74-99) mg/dL POC Glucose (mg/dL) 159 H (75-99) mg/dL Calcium (8.4-10.2) mg/dL AST (17-59) U/L ALT (4-49) U/L Alkaline Phosphatase (38-126) U/L Total Protein (6.3-8.2) g/dL Total Protein (PEP) 4.7 L (6.2-8.2) g/dL Albumin (3.5-5.0) g/dL Vitamin B12 1514.0 H (200.0-944.0) pg/mL TSH 5.300 H (0.465-4.680) mIU/L Free T4 0.73 L (0.78-2.19) ng/dL 07/24/19 07/25/19 07/25/19 Range/Units 23:50 04:31 04:31 WBC 31.5 H (3.8-10.6) k/uL RBC 2.20 L (4.30-5.90) m/uL Hgb 7.0 L (13.0-17.5) gm/dL Hct 21.1 L (39.0-53.0) % Neutrophils # (Manual) 25.80 H (1.3-7.7) k/uL Basophils # (Manual) 0.32 H (0-0.2) k/uL Metamyelocytes # (Man) 0.95 H (0) k/uL Potassium 5.3 H (3.5-5.1) mmol/L Chloride 109 H (98-107) mmol/L Carbon Dioxide 15 L (22-30) mmol/L BUN 118 H* (9-20) mg/dL Creatinine 6.60 H (0.66-1.25) mg/dL Glucose 157 H (74-99) mg/dL POC Glucose (mg/dL) 189 H (75-99) mg/dL Calcium 7.9 L (8.4-10.2) mg/dL AST 63 H (17-59) U/L ALT 58 H (4-49) U/L Alkaline Phosphatase 191 H (38-126) U/L Total Protein 5.4 L (6.3-8.2) g/dL Total Protein (PEP) (6.2-8.2) g/dL Albumin 2.7 L (3.5-5.0) g/dL Vitamin B12 (200.0-944.0) pg/mL TSH (0.465-4.680) mIU/L Free T4 (0.78-2.19) ng/dL 07/25/19 07/25/19 Range/Units 06:06 11:58 WBC (3.8-10.6) k/uL RBC (4.30-5.90) m/uL Hgb (13.0-17.5) gm/dL Hct (39.0-53.0) % Neutrophils # (Manual) (1.3-7.7) k/uL Basophils # (Manual) (0-0.2) k/uL Metamyelocytes # (Man) (0) k/uL Potassium (3.5-5.1) mmol/L Chloride (98-107) mmol/L Carbon Dioxide (22-30) mmol/L BUN (9-20) mg/dL Creatinine (0.66-1.25) mg/dL Glucose (74-99) mg/dL POC Glucose (mg/dL) 175 H 143 H (75-99) mg/dL Calcium (8.4-10.2) mg/dL AST (17-59) U/L ALT (4-49) U/L Alkaline Phosphatase (38-126) U/L Total Protein (6.3-8.2) g/dL Total Protein (PEP) (6.2-8.2) g/dL Albumin (3.5-5.0) g/dL Vitamin B12 (200.0-944.0) pg/mL TSH (0.465-4.680) mIU/L Free T4 (0.78-2.19) ng/dL Microbiology - Last 24 Hours (Table) 07/19/19 10:20 Blood Culture - Final Blood No Growth after 144 hours 07/23/19 10:17 Blood Culture - Preliminary Blood No Growth after 48 hours 07/23/19 10:40 Blood Culture - Preliminary Blood No Growth after 48 hours 07/24/19 00:00 Urine Culture - Final Urine,Catheterized 07/23/19 10:17 Blood Culture Gram Stain - Preliminary Blood Blood Culture - Preliminary Coagulase Negative Staph 07/23/19 17:10 Catheter Tip Culture - Preliminary Catheter Tip 07/23/19 17:00 Catheter Tip Culture - Preliminary Catheter Tip 07/23/19 10:17 Blood Culture - Final Blood Assessment and Plan Plan: Assessment: #1. Acute gallstone pancreatitis, status post open cholecystectomy postoperative day #8 #2. Severe pancreatitis, improving since surgery, however patient developed multiorgan system failure #3. Acute hypoxic respiratory failure secondary to pulmonary edema and pleural effusions related to pancreatitis and acute renal failure #4. Acute kidney injury requiring hemodialysis and patient continues to require dialysis on a daily basis #4. Fever and leukocytosis with hypotension, suggestive of sepsis, all cultures are negative thus far, central line catheter was removed and tip culture is pending #5. History of alcoholism #6. History of hypertension #7. Bilateral hearing loss #8. Suspect component of metabolic encephalopathy or drug-induced encephalopathy Plan: Hemodynamically patient is doing better, he is tolerating hemodialysis better, and the goal is to remove 3-1/2-4 L of fluid today. He is off supplemental oxygen, denies any shortness of breath, continue encouraging deep breathing and coughing, maintain aspiration precautions. She was nothing by mouth right now, we'll have speech evaluate his swallowing ability, patient unfortunately removed his NG tube if he does not pass swallow evaluation we will have to be reinserted for administration of medications, and nutrition. Continue breathing pedro tments, incentive spirometry use, follow-up chest x-ray in the morning. GI and DVT prophylaxis, labs have been reviewed. Antibiotivcs per ID service recommendations, all cultures are negative thus far. We'll continue to follow I performed a history & physical examination of the patient and discussed their management with my nurse practitioner, Ligia Jackson. I reviewed the nurse practitioner's note and agree with the documented findings and plan of care. Lung sounds are positive for coarse breath sounds. The findings and the impression was discussed with the patient. I attest to the documentation by the nurse practitioner. Time with Patient: Less than 30
[2019-07-25] MEDS: IOPAMIDOL CONTRAST (ORAL USE) VIAL PO PRN ×2 (14:59→16:04)
--- NOTE | 2019-07-25 15:35 | PN ---
PROGRESS NOTE DATE OF SERVICE: 07/25/2019 REASON FOR FOLLOWUP: Low-grade fever and leukocytosis. INTERVAL HISTORY: The patient is currently afebrile. The highest temperature this morning has been 99.9. The patient is more awake and alert today, though. The patient did pull up his NG. He is breathing comfortably. Some abdominal discomfort; unable to quantify any further. No vomiting has been reported by the nursing staff or any diarrhea. PHYSICAL EXAMINATION: Blood pressure 102/60 with a pulse of 121, temperature 99.5. He is 99% on 2 L nasal cannula. General description is a middle-aged male lying in bed in no distress. HEENT EXAMINATION: Pallor. Oral mucosa membrane is dry. LUNGS: Unlabored breathing. Decreased breath sounds at the bases. No wheeze. HEART: S1, S2. Regular rate and rhythm. ABDOMEN: Soft. No tenderness. No guarding or rigidity. EXTREMITIES: Some trace edema of the feet. LABS: Hemoglobin 7, white count 31.5. BUN of 118, creatinine 6.60. DIAGNOSTIC IMPRESSION AND PLAN: Patient with low-grade fever and elevated white count in this patient who did have acute gallstone pancreatitis, status post open cholecystectomy, now with persistently elevated white count. CT of abdomen and pelvis with oral contrast to be done to make sure no evidence of any pancreatic pseudocyst or any complications associated with it. The patient is currently covered with cefepime, vancomycin and Flagyl; to continue and monitor his clinical course closely. MMODL / IJN: [id number] /
--- NOTE | 2019-07-25 16:57 | CT ---
EXAMINATION TYPE: CT abdomen pelvis wo con DATE OF EXAM: 07/25/2019 COMPARISON: 07/11/2019 HISTORY: Pancreatitis/leukocytosis r/o abscess. Oral contrast only CT DLP: 2104.4 mGycm Automated exposure control for dose reduction was used. There is some mild atelectasis at the lung bases. There is a large 14 x 7 cm irregular cystic fluid c ollection posterior to the stomach and adjacent to the anterior pancreas that could BE a large pseudo cyst or fluid in the lesser sac. Margins of the pancreas are indistinct. There is diffuse swelling of the pancreas. Spleen is intact. Bile ducts are not dilated. There is large drainage catheter in the upper abdomen posterior to the left lobe of the liver. There is apparent cholecystectomy. The bile du cts are not dilated. Kidneys have normal size and contour. There is no hydronephrosis. There is no retroperitoneal adenopa thy. There is no evidence of a bowel obstruction. There is no inguinal hernia. There is no free fluid in the pelvis. There is Chaves catheter in the uri nary bladder. Bladder is empty. There is small amount of free fluid in the pelvis and in the paracoli c gutters. Lumbar spine is intact. IMPRESSION: Enlargement of the pancreas with heterogeneity consistent with pancreatitis similar to last exam. The re is large cystic fluid collection anterior to the pancreas that could BE a pseudocyst or fluid in t he lesser sac. There is anterior displacement of the stomach. Drainage catheter at the jitendra hepatis. No dilated ducts. Minimal ascites fluid is new compared to old exam. There is cholecystectomy since old exam. There is subcutaneous edema around the abdomen that is new compared to old exam.
--- NOTE | 2019-07-25 17:21 | P.PN ---
Subjective Progress Note Date: 07/25/19 Patient is more alert and awake. Offers no new complaints. Still continues to be encephalopathic. Patient continues to be quadriparetic. Areflexic. Objective - Vital Signs Vital signs: Vital Signs Temp 99.5 F 07/25/19 14:23 Pulse 125 H 07/25/19 15:00 Resp 25 H 07/25/19 15:45 BP 112/61 07/25/19 15:00 Pulse Ox 93 L 07/25/19 15:00 Intake & Output 07/24/19 07/25/19 07/25/19 18:59 06:59 18:59 Intake Total 1380 770 990 Output Total 2185 185 3720 Balance -805 585 -2730 Weight 126.6 kg 126.6 kg Intake: IV 320 120 190 0.9 120 120 90 metroNIDAZOLE-NS PMX 500 200 100 mg In Saline 1 100ml.bag @ 100 mls/hr IVPB Q8HR [facility] Rx#:[id number] Intake, IV Titration 500 Amount Vancomycin 2,250 mg In 500 Sodium Chloride 0.9% 500 ml 500 ml @ 167 mls/hr IVPB ONCE ONE Rx#: [id number] Oral 600 Tube Feeding 410 650 200 Other 150 Output: Drainage 70 50 Right Abdomen 70 50 Urine 115 135 120 Hemodialysis 2000 3600 Other: Voiding Method Indwelling Catheter Indwelling Catheter Indwelling Catheter # Bowel Movements 1 ABP, PAP, CO, CI - Last Documented Arterial Blood Pressure 96/53 - Exam As above. Patient awake and alert. Speaks a few words, short sentences. Patient has significant impaired attention and concentration. Patient has peripheral edema. Patient quadriparetic. Reflexes absent. - Labs CBC & Chem 7: 07/25/19 04:31 07/25/19 04:31 Labs: Abnormal Lab Results - Last 24 Hours (Table) 07/24/19 07/24/19 07/24/19 Range/Units 15:56 15:56 18:22 WBC (3.8-10.6) k/uL RBC (4.30-5.90) m/uL Hgb (13.0-17.5) gm/dL Hct (39.0-53.0) % Neutrophils # (Manual) (1.3-7.7) k/uL Basophils # (Manual) (0-0.2) k/uL Metamyelocytes # (Man) (0) k/uL Potassium (3.5-5.1) mmol/L Chloride (98-107) mmol/L Carbon Dioxide (22-30) mmol/L BUN (9-20) mg/dL Creatinine (0.66-1.25) mg/dL Glucose (74-99) mg/dL POC Glucose (mg/dL) 159 H (75-99) mg/dL Calcium (8.4-10.2) mg/dL AST (17-59) U/L ALT (4-49) U/L Alkaline Phosphatase (38-126) U/L Total Protein (6.3-8.2) g/dL Total Protein (PEP) 4.7 L (6.2-8.2) g/dL Albumin (3.5-5.0) g/dL Vitamin B12 1514.0 H (200.0-944.0) pg/mL Free T4 0.73 L (0.78-2.19) ng/dL 07/24/19 07/25/19 07/25/19 Range/Units 23:50 04:31 04:31 WBC 31.5 H (3.8-10.6) k/uL RBC 2.20 L (4.30-5.90) m/uL Hgb 7.0 L (13.0-17.5) gm/dL Hct 21.1 L (39.0-53.0) % Neutrophils # (Manual) 25.80 H (1.3-7.7) k/uL Basophils # (Manual) 0.32 H (0-0.2) k/uL Metamyelocytes # (Man) 0.95 H (0) k/uL Potassium 5.3 H (3.5-5.1) mmol/L Chloride 109 H (98-107) mmol/L Carbon Dioxide 15 L (22-30) mmol/L BUN 118 H* (9-20) mg/dL Creatinine 6.60 H (0.66-1.25) mg/dL Glucose 157 H (74-99) mg/dL POC Glucose (mg/dL) 189 H (75-99) mg/dL Calcium 7.9 L (8.4-10.2) mg/dL AST 63 H (17-59) U/L ALT 58 H (4-49) U/L Alkaline Phosphatase 191 H (38-126) U/L Total Protein 5.4 L (6.3-8.2) g/dL Total Protein (PEP) (6.2-8.2) g/dL Albumin 2.7 L (3.5-5.0) g/dL Vitamin B12 (200.0-944.0) pg/mL Free T4 (0.78-2.19) ng/dL 07/25/19 07/25/19 Range/Units 06:06 11:58 WBC (3.8-10.6) k/uL RBC (4.30-5.90) m/uL Hgb (13.0-17.5) gm/dL Hct (39.0-53.0) % Neutrophils # (Manual) (1.3-7.7) k/uL Basophils # (Manual) (0-0.2) k/uL Metamyelocytes # (Man) (0) k/uL Potassium (3.5-5.1) mmol/L Chloride (98-107) mmol/L Carbon Dioxide (22-30) mmol/L BUN (9-20) mg/dL Creatinine (0.66-1.25) mg/dL Glucose (74-99) mg/dL POC Glucose (mg/dL) 175 H 143 H (75-99) mg/dL Calcium (8.4-10.2) mg/dL AST (17-59) U/L ALT (4-49) U/L Alkaline Phosphatase (38-126) U/L Total Protein (6.3-8.2) g/dL Total Protein (PEP) (6.2-8.2) g/dL Albumin (3.5-5.0) g/dL Vitamin B12 (200.0-944.0) pg/mL Free T4 (0.78-2.19) ng/dL Microbiology - Last 24 Hours (Table) 07/19/19 10:20 Blood Culture - Final Blood No Growth after 144 hours 07/23/19 10:17 Blood Culture - Preliminary Blood No Growth after 48 hours 07/23/19 10:40 Blood Culture - Preliminary Blood No Growth after 48 hours 07/24/19 00:00 Urine Culture - Final Urine,Catheterized 07/23/19 10:17 Blood Culture Gram Stain - Preliminary Blood Blood Culture - Preliminary Coagulase Negative Staph 07/23/19 17:10 Catheter Tip Culture - Preliminary Catheter Tip 07/23/19 17:00 Catheter Tip Culture - Preliminary Catheter Tip Assessment and Plan Assessment: * Altered mental status, likely related to toxic metabolic encephalopathy. * Generalized weakness, with hyporeflexia. Possible critical illness ne uropathy. * Acute kidney injury with acute renal failure, requiring dialysis. * Acute gallstones pancreatitis * Acute cholecystitis, status post open cholecystectomy * Elevated liver enzymes * Significant anemia * Leukocytosis, possible due to sepsis Plan: * Patient's examination is nonfocal. His altered mental status likely related to acute toxic metabolic encephalopathy. * Patient's generalized weakness has not improved. * B12 1514, folate 8.3, TSH 5.3 mildly elevated, free T4 0.73, mildly decreased, hemoglobin A1c 5.1, immune fixation electrophoresis still pending and ammonia level normal 12. * We will follow clinically. * Your medical management.
[2019-07-25 18:37] LABS: Glucose,Whole Blood 146 mg/dL (75-99)
[2019-07-25 23:42] LABS: Glucose,Whole Blood 164 mg/dL (75-99)
[2019-07-26] MEDS: CEFEPIME 1 GM in SODIUM CHLORIDE 0.9% 50 ML IVPB SCH (01:48)
[2019-07-26 04:46] LABS: Anisocytosis Slight; Basophils # (A) 0.3 k/uL (0-0.2); Basophils % (A) 1 %; Eosinophils # (A) 0.4 k/uL (0-0.7); Eosinophils % (A) 1 %; HCT 23.5 % (39.0-53.0); HGB 7.2 gm/dL (13.0-17.5); Hypochromasia Moderate; Lymphocytes # (A) 1.4 k/uL (1.0-4.8); Lymphocytes % (A) 5 %; MCH 31.3 pg (25.0-35.0); MCHC 30.6 g/dL (31.0-37.0); Macrocytosis Slight; Mean Platelet Volume 8.9; Monocytes # (A) 1.2 k/uL (0-1.0); Monocytes % (A) 5 %; Neutrophils # (A) 23.2 k/uL (1.3-7.7); Neutrophils % (A) 86 %; RBC 2.29 m/uL (4.30-5.90); RDW 16.1 % (11.5-15.5)
[2019-07-26 04:49] LABS: Albumin 2.9 g/dL (3.5-5.0); MCV 102.3 fL (80.0-100.0); Total Bilirubin 0.8 mg/dL (0.2-1.3); Total Protein 5.6 g/dL (6.3-8.2)
[2019-07-26 04:50] LABS: Platelet Count 152 k/uL (150-450)
[2019-07-26 04:54] LABS: Vancomycin,Random 23.9 ug/mL
[2019-07-26 05:59] LABS: Glucose,Whole Blood 177 mg/dL (75-99)
[2019-07-26] MEDS: INSULIN ASPART (NovoLOG) 100 UNIT/ML VIAL SQ SCH ×4 (06:43→22:56)
[2019-07-26] MEDS: CALCIUM ACETATE 667 MG TAB PO SCH ×3 (06:45→16:49)
--- NOTE | 2019-07-26 07:20 | XR ---
EXAMINATION TYPE: XR chest 1V portable DATE OF EXAM: 07/26/2019 COMPARISON: 07/24/2019 HISTORY: SOB, Follow Up FINDINGS: G-tube is seen coursing towards the stomach. No change in bibasilar opacities. Stable appearance of the cardio-mediastinal structures at this time. Pleural effusion unchanged. IMPRESSION: 1. Stable portable chest. Clinical correlation and follow up until resolution is recommended.
[2019-07-26] MEDS: HEPARIN SODIUM,PORCINE 5,000 UNIT/ML 1 ML VIAL SQ SCH ×2 (08:20→16:50)
[2019-07-26] MEDS: PANTOPRAZOLE 40 MG/10 ML VIAL IV SCH (08:20)
[2019-07-26] MEDS: HYDROmorphone 2 MG/ML 1 ML SYRINGE IVP PRN (08:20)
[2019-07-26] MEDS: IPRATROPIUM-ALBUTEROL 3 ML NEB INHALATION SCH ×4 (08:21→18:43)
[2019-07-26] MEDS: metroNIDAZOLE-NS PMX 500 MG in SALINE 1 100ML.BAG IVPB SCH ×2 (08:21→16:50)
--- NOTE | 2019-07-26 09:54 | P.PN ---
Progress Note - Text Progress Note Date: 07/26/19 The patient remains in the ICU. He is more awake today. His metabolic encephalopathy was improving. Patient to CAT scan performed yesterday there is a pseudocyst of the of the pancreas which is displacing the stomach anteriorly. The pseudocyst extends in the lesser sac. Patient's leukocytosis has improved slightly. His 27,000 today. On exam his vital signs are stable. His abdomen soft. Incision site is clean dry intact. MARICHUY drain has serosanguineous drainage. Status post open cholecystectomy for severe gallstone pancreas. Patient will be continued to have supportive care. He'll remain on antibiotics.
--- NOTE | 2019-07-26 10:29 | P.PN ---
Subjective covering Dr. Lopez starting 07/24/2019 This is a pleasant 54-year-old Patient of Dr. Malloy. with past medical history of hypertension and hearing difficulty. Presents with upper abdominal epigastric pain found to have acute pancreatitis secondary to acute cholecystitis with choledocholithiasis. He is status post cholecystectomy on and 07/17. Also patientwas in acute kidney injury and renal failure and eventually needed hemodialysis which is undergoing currently and acute hypoxic respiratory failure status post temporal intubation and extubation. Sepsis is also suspected that's why patient was started on antibiotics and currently is on cefepime and Flagyl. patient remains in the ICU and confused although at times he can wake up and talk with some sentences. However when I saw the patient he was still confused and currently waking up for verbal and tactile stimuli.vitals showing tachycardia with heart rate 114-120. he is saturating 93% on 3 L oxygen.Blood pressure 105/59.patient labs showed leukocytosis of 30 2.9K. Hemoglobin stable at 7.3.liver enzymes are slightly elevated. 07/25/2019 Patient mentation is partially improved, the open eyes spontaneously, he follows commands, he answers some questions appropriately, he knows where he is "I am at [facility]" . Patient pulled out his NG tube today, he has no appetite, no abdominal pain or tenderness however patient is poor historian.patient is still febrile 99.9 today and tachycardic 122 and tachypneic 31. He is saturating 93% on room air.he still have significant leukocytosis of 30 1.5K, hemoglobin is 7.0.sugar is controlled and divided enzymes mildly elevated.MARICHUY drain is in place. Patients will need a CAT scan of the abdomen and pelvis with oral contrast to rule out abscess, recommended by ID team currently patient is on Flagyl, cefepime and IV vancomycin. 07/26/2019 Patient confusion is improving gradually, his lethargic with generalized weakness. NG tube is in place. Bedside nurse planning to do a bedside swallow evaluation. He can resume his diet if he passes. Infectious disease consult her current CAT scan of the abdomen which showed pseudocyst however surgical think no need for any surgical intervention other than conservative management and keep monitoring. he still somewhat tachycardic and tachypneic. Leukocytosis improving down to 20 7K, hemoglobin stable at 7.0, platelets 152k. Patient currently on cefepime, Flagyl however her vancomycin was discontinued. Medial drain has been added. R Objective - Vital Signs Vital signs: Vital Signs Temp 97.6 F 07/26/19 04:00 Pulse 111 H 07/26/19 08:32 Resp 29 H 07/26/19 07:00 BP 130/67 07/26/19 07:00 Pulse Ox 94 L 07/26/19 07:00 Intake & Output 07/25/19 07/26/19 07/26/19 18:59 06:59 18:59 Intake Total 1820 1210 60 Output Total 3735 95 35 Balance -1915 1115 25 Weight 126.6 kg Intake: IV 320 220 10 0.9 120 120 10 metroNIDAZOLE-NS PMX 500 200 100 mg In Saline 1 100ml.bag @ 100 mls/hr IVPB Q8HR [facility]BE[facility] Rx#:[id number] Intake, IV Titration 50 Amount Cefepime 1 gm In Sodium 50 Chloride 0.9% 50 ml @ 100 mls/hr IVPB Q24H OBEY Rx# :[id number] Oral 1200 Tube Feeding 300 850 50 Other 90 Output: Drainage 30 Right Abdomen 30 Urine 135 95 5 Hemodialysis 3600 Other: Voiding Method Indwelling Catheter Indwelling Catheter # Bowel Movements 1 1 ABP, PAP, CO, CI - Last Documented Arterial Blood Pressure 96/53 - Labs CBC & Chem 7: 07/26/19 04:16 07/26/19 04:16 Labs: Abnormal Lab Results - Last 24 Hours (Table) 07/25/19 07/25/19 07/25/19 Range/Units 11:58 18:35 23:40 WBC (3.8-10.6) k/uL RBC (4.30-5.90) m/uL Hgb (13.0-17.5) gm/dL Hct (39.0-53.0) % MCV (80.0-100.0) fL MCHC (31.0-37.0) g/dL RDW (11.5-15.5) % Neutrophils # (1.3-7.7) k/uL Monocytes # (0-1.0) k/uL Basophils # (0-0.2) k/uL Carbon Dioxide (22-30) mmol/L BUN (9-20) mg/dL Creatinine (0.66-1.25) mg/dL Glucose (74-99) mg/dL POC Glucose (mg/dL) 143 H 146 H 164 H (75-99) mg/dL Calcium (8.4-10.2) mg/dL ALT (4-49) U/L Alkaline Phosphatase (38-126) U/L Total Protein (6.3-8.2) g/dL Albumin (3.5-5.0) g/dL 07/26/19 07/26/19 07/26/19 Range/Units 04:16 04:16 05:57 WBC 27.0 H (3.8-10.6) k/uL RBC 2.29 L (4.30-5.90) m/uL Hgb 7.2 L (13.0-17.5) gm/dL Hct 23.5 L (39.0-53.0) % MCV 102.3 H D (80.0-100.0) fL MCHC 30.6 L (31.0-37.0) g/dL RDW 16.1 H (11.5-15.5) % Neutrophils # 23.2 H (1.3-7.7) k/uL Monocytes # 1.2 H (0-1.0) k/uL Basophils # 0.3 H (0-0.2) k/uL Carbon Dioxide 17 L (22-30) mmol/L BUN 97 H (9-20) mg/dL Creatinine 5.92 H (0.66-1.25) mg/dL Glucose 150 H (74-99) mg/dL POC Glucose (mg/dL) 177 H (75-99) mg/dL Calcium 8.0 L (8.4-10.2) mg/dL ALT 60 H (4-49) U/L Alkaline Phosphatase 198 H (38-126) U/L Total Protein 5.6 L (6.3-8.2) g/dL Albumin 2.9 L (3.5-5.0) g/dL Microbiology - Last 24 Hours (Table) 07/23/19 17:10 Catheter Tip Culture - Final Catheter Tip 07/19/19 10:20 Blood Culture - Final Blood No Growth after 144 hours 07/23/19 10:17 Blood Culture - Preliminary Blood No Growth after 48 hours 07/23/19 10:40 Blood Culture - Preliminary Blood No Growth after 48 hours 07/24/19 00:00 Urine Culture - Final Urine,Catheterized Assessment and Plan Assessment: gallstone pancreatitis with acute cholecystitis and choledocholithiasis. Status post cholecystectomy Possible sepsis secondary to above Acute hypoxic respiratory failure Pancreatic pseudocyst Acute kidney injury needing hemodialysis Hypertension history of hearing difficulty Plan: this is a pleasant 54 years old male who presents with gallstone pancreatitis status post cholecystectomy. Continue with antibiotics with cefepime and Flagyl .follow-up recommendation by infectious disease. Follow-up recommendation by other consultants including cell room operator, surgical service and critical care team. Labs and medication were reviewed.. Continue same treatment. Continue with symptomatic treatment. Resume home medication. Monitor lytes and vitals. DVT and GI prophylaxis. Further recommendations of the clinical course of the patient DVT prophylaxis: Subcutaneous heparin GI Prophylaxis: Protonix Prognosis is guarded
--- NOTE | 2019-07-26 11:22 | P.PN ---
Subjective Progress Note Date: 07/26/19 Principal diagnosis: Acute gallstone pancreatitis On 07/23/2019 the patient is postop day #6 the patient underwent open cholecystectomy for gallstone pancreatitis and the patient multisystem organ failure. I was able to extubate the patient. As a complication of hisdisease the patient developed an acute kidney injury. Is currently on hemodialysis on a daily basis. A total of 4 L of fluid was ultrafiltrate yesterday. His urine output has improved and the patient is producing around 15-20 mL an hour of urine output. He is currently undergoing dialysis and the goal is to ultrafiltrate him for another 4 L today. Chest x-ray shows small bilateral pleural effusion slightly worse on the left. NG tube is in place. He is receiving enteral feeding for nutritional support. He was able to tolerate that. He is admitted intensive an hour of vital high protein. No fever. No chills. No aspiration. This surgical wound site is dry clean and intact. MARICHUY drain is in place. He is still on a combination of antibiotics utilizing cefepime and Flagyl. White cell count remains elevated at 30. The pro- calcitonin level was sent and the level was at 2.25. As such, there is an underlying concern for sepsis. I was concerned about underlying infection. I added vancomycin to his regimen. Nevertheless the cultures are negative. The catheter is obviously new within the patient has a right femoral hemodialysis catheter that was inserted 2 days ago and he has a left IJ triple-lumen catheter was inserted on 07/13/2019 He is slightly tachycardic. He is having a low-g rade fever of 100.1 On 07/24/2019, patient is now postoperative day #7. He is status post open cho lecystectomy for gallstone pancreatitis. And he developed multisystem organ failure. Patient was eventually extubated, however his overall status remains very marginal. Patient is on 3 L nasal cannula, receiving hemodialysis and ultrafiltration. Chest x-ray showed mostly bibasilar atelectasis and small bilateral pleural effusions. Underlying pneumonia is not entirely ruled out, felt to be less likely. Patient seems to be nonverbal. And has been as such since admission, mental status is questionable, hence I recommended neurology evaluation. WBC count today is 32.9 hemoglobin is 7.3. Blood cultures have been negative on along. Catheter tip cultures are pending. Patient remains on vancomycin. He is also on metronidazole. Transaminases were relatively a bit elevated. BUN is 119 creatinine is 7.12 today Patient was reevaluated today on 07/26/2019, patient is postoperative day #9, remains in the ICU, however I plan to transfer the patient out of the ICU to a monitor bed on selective today. Patient is feeling better, he is on 2 L nasal cannula, in no form of distress. His mental status seems to be slightly better compared to the last few days. His metabolic encephalopathy seems to be improving. Remains a generally weak, and he will likely eventually require transfer to a rehab facility. Swallow evaluation/bedside will be done today, and a decision will be made whether to resume his diet. CT of the abdomen and pelvis showed pseudocyst however discussed that with the surgeon on the case, and did not feel any surgical intervention is necessary at this point. Co ntinues to have leukocytosis but improving WBC count is 27 hemoglobin is 7.2 electrolytes are normal BUN is 97 creatinine is 5.92, remains on hemodialysis chest x-ray today showed bibasilar opacities, and small pleural effusions unchanged. No clear-cut evidence of pneumonia or significant pulmonary edema as noted on the chest x-ray today.. Objective - Vital Signs Vital signs: Vital Signs Temp 99.1 F 07/26/19 08:00 Pulse 110 H 07/26/19 10:00 Resp 16 07/26/19 10:00 BP 125/73 07/26/19 10:00 Pulse Ox 94 L 07/26/19 10:00 Intake & Output 07/25/19 07/26/19 07/26/19 18:59 06:59 18:59 Intake Total 1820 1210 360 Output Total 3735 95 82 Balance -1915 1115 278 Weight 126.6 kg Intake: IV 320 220 130 0.9 120 120 30 metroNIDAZOLE-NS PMX 500 200 100 100 mg In Saline 1 100ml.bag @ 100 mls/hr IVPB Q8HR [facility] Rx#:[id number] Intake, IV Titration 50 Amount Cefepime 1 gm In Sodium 50 Chloride 0.9% 50 ml @ 100 mls/hr IVPB Q24H [facility]BE[facility] Rx# :[id number] Oral 1200 Tube Feeding 300 850 200 Other 90 30 Output: Drainage 30 Right Abdomen 30 Urine 135 95 52 Hemodialysis 3600 Other: Voiding Method Indwelling Catheter Indwelling Catheter # Bowel Movements 1 1 ABP, PAP, CO, CI - Last Documented Arterial Blood Pressure 96/53 - Exam GENERAL: Revealed a 54-year-old white male, awake, less lethargic, more and more verbal.. Head: Atraumatic, normocephalic. HEENT:: PERRLA, EOMI, neck disc, dry mucous membranes. NECK: No neck masses no JVD no stridor HEART: Normal S1 and S2, no S3 gallop. LUNGS: Diminished breath sounds and crackles at the bases no rhonchi and no wheezes. ABDOMEN: The abdomen was soft, non-tender, and without masses, organomegaly, or appreciable enlargement of the abdominal aorta.Bowel sounds are hypoactive at this point in time. No direct tenderness or rebound tenderness or guarding. No ascites.the patient has an incision in the right upper quadrant and the incision site is dry clean and intact and the patient has a MARICHUY drain in the right upper quadrant also. Bowel sounds are hypoactive. No direct tenderness. No rebound tenderness. No guarding. Scrotal edema. PSYCH: Calm mood, blunt affect, follows all simple instructions, his mental status seems to be much improved over the last 2 days. NEUROLOGICAL: Alert, oriented 2, generally weak, otherwise no gross focal deficits. - Labs CBC & Chem 7: 07/26/19 04:16 07/26/19 04:16 Labs: Abnormal Lab Results - Last 24 Hours (Table) 07/25/19 07/25/19 07/25/19 Range/Units 11:58 18:35 23:40 WBC (3.8-10.6) k/uL RBC (4.30-5.90) m/uL Hgb (13.0-17.5) gm/dL Hct (39.0-53.0) % MCV (80.0-100.0) fL MCHC (31.0-37.0) g/dL RDW (11.5-15.5) % Neutrophils # (1.3-7.7) k/uL Monocytes # (0-1.0) k/uL Basophils # (0-0.2) k/uL Carbon Dioxide (22-30) mmol/L BUN (9-20) mg/dL Creatinine (0.66-1.25) mg/dL Glucose (74-99) mg/dL POC Glucose (mg/dL) 143 H 146 H 164 H (75-99) mg/dL Calcium (8.4-10.2) mg/dL ALT (4-49) U/L Alkaline Phosphatase (38-126) U/L Total Protein (6.3-8.2) g/dL Albumin (3.5-5.0) g/dL 07/26/19 07/26/19 07/26/19 Range/Units 04:16 04:16 05:57 WBC 27.0 H (3.8-10.6) k/uL RBC 2.29 L (4.30-5.90) m/uL Hgb 7.2 L (13.0-17.5) gm/dL Hct 23.5 L (39.0-53.0) % MCV 102.3 H D (80.0-100.0) fL MCHC 30.6 L (31.0-37.0) g/dL RDW 16.1 H (11.5-15.5) % Neutrophils # 23.2 H (1.3-7.7) k/uL Monocytes # 1.2 H (0-1.0) k/uL Basophils # 0.3 H (0-0.2) k/uL Carbon Dioxide 17 L (22-30) mmol/L BUN 97 H (9-20) mg/dL Creatinine 5.92 H (0.66-1.25) mg/dL Glucose 150 H (74-99) mg/dL POC Glucose (mg/dL) 177 H (75-99) mg/dL Calcium 8.0 L (8.4-10.2) mg/dL ALT 60 H (4-49) U/L Alkaline Phosphatase 198 H (38-126) U/L Total Protein 5.6 L (6.3-8.2) g/dL Albumin 2.9 L (3.5-5.0) g/dL Microbiology - Last 24 Hours (Table) 07/23/19 17:10 Catheter Tip Culture - Final Catheter Tip 07/19/19 10:20 Blood Culture - Final Blood No Growth after 144 hours 07/23/19 10:17 Blood Culture - Preliminary Blood No Growth after 48 hours 07/23/19 10:40 Blood Culture - Preliminary Blood No Growth after 48 hours 07/24/19 00:00 Urine Culture - Final Urine,Catheterized Assessment and Plan Assessment: Impression: Acute gallstone pancreatitis. Status post open cholecystectomy and he is postoperative day #9 Severe pancreatitis, improving since surgery however the patient developed multiorgan system failure. However improving steadily Acute hypoxic respiratory failure secondary to pulmonary edema and pleural effusions secondary to pancreatitis and acute renal failure. Acute kidney injury requiring hemodialysis and he continues to require hemodialysis Fever and leukocytosis with hypotension, improving, remains on empiric antibiot ics, CT of the abdomen and pelvis was reviewed History of alcoholism. History of hypertension. Bilateral hearing loss. Leukocytosis most likely secondary to sepsis. CT of the abdomen and pelvis showed pseudocyst, no plans for any surgical intervention. Suspect metabolic encephalopathy. Improving steadily Critical illness polyneuropathy and myopathy, will eventually require significant physical therapy and rehab facility.. Recommendation: Consider transferring the patient to a monitored bed on selective today. Continue oxygen presently at 2 L nasal cannula. Continue broad-spectrum antibiotics coverage, patient is now on Flagyl, cefepime and vancomycin. Cultures are negative so far. Continue to monitor electrolytes. Continue hemodialysis. Continue GI and DVT prophylaxis. Advance tube feedings to goal. May have to consider oral feeding if the patient passes the swallow evaluation/bedside evaluation today. Continue physical therapy, and consider eventually rehab referral. Prognosis is still guarded. We'll continue to follow. Discussed his condition with surgery on the case Time with Patient: Less than 30
[2019-07-26 11:47] LABS: Glucose,Whole Blood 176 mg/dL (75-99)
--- NOTE | 2019-07-26 13:51 | PN ---
PROGRESS NOTE Patient is seen for followup for acute kidney injury. He is currently awake, not in any acute distress, maintained on tube feedings through NG tube. Urine output is at about 5 mL an hour. No significant shortness of breath noted. The patient was dialyzed yesterday. We had about 1.5 to 2 L of fluid removed. PHYSICAL EXAMINATION: On examination, blood pressure is 130/67, heart rate 116 per minute, patient is afebrile. Examination of the heart S1, S2. Examination of the lungs, bilateral breath sounds are heard. Abdomen is soft, nontender. Examination of lower extremities show edema 1+ bilaterally. TAVERN KEEPER exam grossly intact. Patient is quite weak, but he is able to move all 4 extremities. LAB: Show sodium 137, potassium 5.0, CO2 17, BUN 97, creatinine 5.9. ASSESSMENT: 1. Acute kidney injury, acute tubular necrosis, currently hemodialysis dependent status post dialysis yesterday. The patient is maintained on daily dialysis. However, we will hold off on dialysis today and plan on treatment tomorrow. 2. Severe pancreatitis, currently slowly improving. 3. Hyperphosphatemia, maintained on phosphate binders. We will recheck another phosphorus level. 4. Metabolic acidosis, somewhat improved with daily dialysis. 5. Hyperkalemia associated with acute kidney injury, now improved. 6. Generalized debility. 7. Anemia with no active bleeding noted. PLAN: Check phosphorus levels and arrange for hemodialysis in a.m. MMILEANAL / NARINDER: [id number] /
--- NOTE | 2019-07-26 14:02 | P.PN ---
Subjective Progress Note Date: 07/26/19 Patient is more alert and awake. According to the family members in the nurse, he was much more alert, interactive, talking in sentences earlier but now he again appears tired. Patient denies any head or neck pain. Neck is supple. No stiffness. Patient continues to be quadriparetic. Areflexic. Objective - Vital Signs Vital signs: Vital Signs Temp 99.1 F 07/26/19 08:00 Pulse 115 H 07/26/19 11:39 Resp 16 07/26/19 10:00 BP 125/73 07/26/19 10:00 Pulse Ox 94 L 07/26/19 10:00 Intake & Output 07/25/19 07/26/19 07/26/19 18:59 06:59 18:59 Intake Total 1820 1210 360 Output Total 3735 95 82 Balance -1915 1115 278 Weight 126.6 kg Intake: IV 320 220 130 0.9 120 120 30 metroNIDAZOLE-NS PMX 500 200 100 100 mg In Saline 1 100ml.bag @ 100 mls/hr IVPB Q8HR [facility] Rx#:[id number] Intake, IV Titration 50 Amount Cefepime 1 gm In Sodium 50 Chloride 0.9% 50 ml @ 100 mls/hr IVPB Q24H [facility] Rx# :[id number] Oral 1200 Tube Feeding 300 850 200 Other 90 30 Output: Drainage 30 Right Abdomen 30 Urine 135 95 52 Hemodialysis 3600 Other: Voiding Method Indwelling Catheter Indwelling Catheter Indwelling Catheter # Bowel Movements 1 1 ABP, PAP, CO, CI - Last Documented Arterial Blood Pressure 96/53 - Exam Patient was sleeping, when I came to see, when woke up, he was just slow mentally, did not participate at all. Patient would not move his arms or legs. 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 Nurse reports that he has been able to move extremities better than yesterday. Family also agreed. Examination limited due to patient's mentation. Per nursing report, patient does speak longer sentences more interactive. Patient has significant impaired attention and concentration. Patient has peripheral edema. Patient quadriparetic. Reflexes absent. Plantars probable upgoing. Patient's neck is supple. No stiffness. - Labs CBC & Chem 7: 07/26/19 04:16 07/26/19 04:16 Labs: Abnormal Lab Results - Last 24 Hours (Table) 07/25/19 07/25/19 07/26/19 Range/Units 18:35 23:40 04:16 WBC (3.8-10.6) k/uL RBC (4.30-5.90) m/uL Hgb (13.0-17.5) gm/dL Hct (39.0-53.0) % MCV (80.0-100.0) fL MCHC (31.0-37.0) g/dL RDW (11.5-15.5) % Neutrophils # (1.3-7.7) k/uL Monocytes # (0-1.0) k/uL Basophils # (0-0.2) k/uL Carbon Dioxide 17 L (22-30) mmol/L BUN 97 H (9-20) mg/dL Creatinine 5.92 H (0.66-1.25) mg/dL Glucose 150 H (74-99) mg/dL POC Glucose (mg/dL) 146 H 164 H (75-99) mg/dL Calcium 8.0 L (8.4-10.2) mg/dL ALT 60 H (4-49) U/L Alkaline Phosphatase 198 H (38-126) U/L Total Protein 5.6 L (6.3-8.2) g/dL Albumin 2.9 L (3.5-5.0) g/dL 07/26/19 07/26/19 07/26/19 Range/Units 04:16 05:57 11:45 WBC 27.0 H (3.8-10.6) k/uL RBC 2.29 L (4.30-5.90) m/uL Hgb 7.2 L (13.0-17.5) gm/dL Hct 23.5 L (39.0-53.0) % MCV 102.3 H D (80.0-100.0) fL MCHC 30.6 L (31.0-37.0) g/dL RDW 16.1 H (11.5-15.5) % Neutrophils # 23.2 H (1.3-7.7) k/uL Monocytes # 1.2 H (0-1.0) k/uL Basophils # 0.3 H (0-0.2) k/uL Carbon Dioxide (22-30) mmol/L BUN (9-20) mg/dL Creatinine (0.66-1.25) mg/dL Glucose (74-99) mg/dL POC Glucose (mg/dL) 177 H 176 H (75-99) mg/dL Calcium (8.4-10.2) mg/dL ALT (4-49) U/L Alkaline Phosphatase (38-126) U/L Total Protein (6.3-8.2) g/dL Albumin (3.5-5.0) g/dL Microbiology - Last 24 Hours (Table) 07/23/19 10:17 Blood Culture - Preliminary Blood No Growth after 72 hours 07/23/19 10:40 Blood Culture - Preliminary Blood No Growth after 72 hours 07/23/19 17:10 Catheter Tip Culture - Final Catheter Tip 07/19/19 10:20 Blood Culture - Final Blood No Growth after 144 hours 07/24/19 00:00 Urine Culture - Final Urine,Catheterized Assessment and Plan Assessment: * Altered mental status, likely related to toxic metabolic encephalopathy. * Generalized weakness, with hyporeflexia. 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 GBS unlikely, as patient has multiple reasons to have critical i llness/toxic polyneuropathy. * Acute kidney injury with acute renal failure, requiring dialysis. * Acute gallstones pancreatitis * Acute cholecystitis, status post open cholecystectomy * Elevated liver enzymes * Significant anemia * Leukocytosis, possible due to sepsis Plan: * Patient's examination is nonfocal. His altered mental status likely related to acute toxic metabolic encephalopathy, although slowly improving. * Patient's generalized weakness has not improved. Likely critical illness polyneuropathy. Patient would need prolonged rehabilitation. * B12 1514, folate 8.3, TSH 5.3 mildly elevated, free T4 0.73, mildly decreased, hemoglobin A1c 5.1, immune fixation electrophoresis still pending and ammonia level normal 12. * Patient probably will need EMG and nerve conduction studies of upper and lower extremities, when possible. * MRI cervical spine, rule out stenosis. * We will follow clinically. * Your medical management.
--- NOTE | 2019-07-26 14:21 | PN ---
PROGRESS NOTE DATE OF SERVICE: 07/26/2019. REASON FOR FOLLOWUP: Fever, leukocytosis, pancreatic pseudocyst. INTERVAL HISTORY: The patient is currently afebrile. The patient is hemodynamically stable, not requiring any pressor support. At this point, the patient remains to be lethargic and unable to provide any history and she has been placed back. No vomiting or diarrhea reported by the nursing staff. The patient himself unable to provide any history. PHYSICAL EXAMINATION: Blood pressure 125/73 with a pulse of 90, temperature 98. He is 94% on 2 L nasal cannula. General description is a middle-aged male lying in bed in no distress. Respiratory system: Unlabored breathing with decreased breath sounds in the bases. No wheeze. Heart S1, S2. Regular rate and rhythm. Normal S1, S2. No guarding and no rigidity. LABS: Hemoglobin 7.8, white count 7000. That is improved compared to yesterday with BUN of 97, creatinine 5.92. Blood and urine cultures have been negative so far. DIAGNOSTIC IMPRESSION AND PLAN: Patient with leukocytosis and low-grade fever likely underlying pancreatic pseudocyst this admission to the hospital with gallstone pancreatitis, status post open cholecystectomy. The patient white count has shown a downward trend. Cultures have been negative so far except positive wound culture with Coagulase negative Staph and patient is broadly covered with antibiotic. We will monitor his clinical course closely. Continue supportive care. LYDIAL / RKN: [id number] / [place]
[2019-07-26 14:34] LABS: Albumin 2.33 g/dL (3.80-4.90); Gamma Globulin 0.56 g/dL (0.70-1.50)
[2019-07-26] MEDS: NOREPINEPHRINE 32 MG in SODIUM CHLORIDE 0.9% 218 ML IV SCH (14:37)
[2019-07-26 16:59] LABS: Glucose,Whole Blood 194 mg/dL (75-99)
[2019-07-26 22:31] LABS: Glucose,Whole Blood 218 mg/dL (75-99)
[2019-07-26] MEDS: ONDANSETRON 4 MG/2 ML VIAL IVP PRN (22:56)
[2019-07-27] MEDS: metroNIDAZOLE-NS PMX 500 MG in SALINE 1 100ML.BAG IVPB SCH ×2 (00:04→09:23)
[2019-07-27] MEDS: HEPARIN SODIUM,PORCINE 5,000 UNIT/ML 1 ML VIAL SQ SCH ×5 (00:04→20:45)
[2019-07-27] MEDS: CEFEPIME 1 GM in SODIUM CHLORIDE 0.9% 50 ML IVPB SCH (01:50)
[2019-07-27] MEDS: MELATONIN 3 MG TABLET PO PRN (01:50)
[2019-07-27 06:07] LABS: Basophils # (A) 0.1 k/uL (0-0.2); Basophils % (A) 1 %; Eosinophils # (A) 0.3 k/uL (0-0.7); Eosinophils % (A) 1 %; HCT 20.4 % (39.0-53.0); Hypochromasia Slight; Lymphocytes # (A) 0.9 k/uL (1.0-4.8); Lymphocytes % (A) 5 %; MCH 31.1 pg (25.0-35.0); MCHC 31.5 g/dL (31.0-37.0); MCV 98.7 fL (80.0-100.0); Macrocytosis Slight; Monocytes # (A) 0.8 k/uL (0-1.0); Monocytes % (A) 4 %; Neutrophils # (A) 18.6 k/uL (1.3-7.7); Neutrophils % (A) 88 %; Platelet Count 157 k/uL (150-450); RBC 2.07 m/uL (4.30-5.90); RDW 15.3 % (11.5-15.5); WBC 21.1 k/uL (3.8-10.6)
[2019-07-27 06:20] LABS: Albumin 2.6 g/dL (3.5-5.0); Potassium 4.8 mmol/L (3.5-5.1); Total Bilirubin 0.8 mg/dL (0.2-1.3); Total Protein 5.1 g/dL (6.3-8.2)
[2019-07-27 06:25] LABS: Vancomycin,Random 19.5 ug/mL
[2019-07-27 06:29] LABS: INR 1.1 (<1.2); Prothrombin Time 11.4 sec (9.0-12.0)
[2019-07-27 06:34] LABS: HGB 6.4 gm/dL (13.0-17.5)
[2019-07-27 07:03] LABS: Glucose,Whole Blood 153 mg/dL (75-99)
[2019-07-27] MEDS: PANTOPRAZOLE 40 MG TABLET PO SCH (07:07)
[2019-07-27] MEDS: CALCIUM ACETATE 667 MG TAB PO SCH ×3 (07:07→17:41)
[2019-07-27] MEDS: INSULIN ASPART (NovoLOG) 100 UNIT/ML VIAL SQ SCH ×4 (07:07→20:45)
--- NOTE | 2019-07-27 08:47 | P.PN ---
Subjective Progress Note Date: 07/27/19 CHIEF COMPLAINT: Abdominal pain HISTORY OF PRESENT ILLNESS: Patient is status post open cholecystectomy. Patient examined at the bedside with Dr. Rosales. No family present. Patients mental status continues to improve each day. He is awake and talking. He is to lerating full liquid diet. Tube feedings are currently infusing as well. WBC 21.1. Hemoglobin 6.4. MARICHUY drain with purulent drainage. PHYSICAL EXAM: VITAL SIGNS: Reviewed. GENERAL: Well-developed in no acute distress HEENT: No sclera icterus. Extraocular movements grossly intact. Moist buccal mucosa. Head is atraumatic, normocephalic. ABDOMEN: Soft. Nondistended. Dressing CDI. MARICHUY with purulent drainage. NEUROLOGIC: Patient appears more alert today. ASSESSMENT: 1. Abdominal pain 2. Cholelithiasis, Possible choledocholithiasis 3. Pancreatitis 4. Hyperbilirubinemia 5. Transaminitis PLAN: Continue to monitor MARICHUY drainage DC NG tube and tube feedings Continue full liquid diet. Advance as tolerated Monitor hemoglobin. Patient to receive 1 unit RBC transfusion today per internal medicine Continue antibiotics per ID. Continue to monitor WBC. Nurse practitioner note has been reviewed by physician. Signing provider agrees with the documented findings, assessment, and plan of care. Objective - Vital Signs Vital signs: Vital Signs Temp 99.5 F 07/27/19 04:00 Pulse 99 07/27/19 06:00 Resp 21 07/27/19 06:00 BP 123/71 07/27/19 06:00 Pulse Ox 96 07/27/19 04:00 Intake & Output 07/26/19 07/27/19 07/27/19 18:59 06:59 18:59 Intake Total 1260 610 Output Total 207 245 60 Balance 1053 365 -60 Weight 126.9 kg Intake: IV 300 60 0.9 100 60 metroNIDAZOLE-NS PMX 500 200 mg In Saline 1 100ml.bag @ 100 mls/hr IVPB Q8HR [facility] Rx#:[id number] Oral 500 500 Tube Feeding 400 50 Other 60 Output: Drainage 30 60 60 Right Abdomen 30 60 60 Urine 177 185 Other: Voiding Method Indwelling Catheter Indwelling Catheter ABP, PAP, CO, CI - Last Documented Arterial Blood Pressure 96/53 - Labs CBC & Chem 7: 07/27/19 05:40 07/27/19 05:40 Labs: Abnormal Lab Results - Last 24 Hours (Table) 07/24/19 07/26/19 07/26/19 Range/Units 15:56 04:20 11:45 WBC (3.8-10.6) k/uL RBC (4.30-5.90) m/uL Hgb (13.0-17.5) gm/dL Hct (39.0-53.0) % Neutrophils # (1.3-7.7) k/uL Lymphocytes # (1.0-4.8) k/uL Sodium (137-145) mmol/L Carbon Dioxide (22-30) mmol/L BUN (9-20) mg/dL Creatinine (0.66-1.25) mg/dL Glucose (74-99) mg/dL POC Glucose (mg/dL) 176 H (75-99) mg/dL Calcium (8.4-10.2) mg/dL Phosphorus 10.0 H* (2.5-4.5) mg/dL ALT (4-49) U/L Alkaline Phosphatase (38-126) U/L Total Protein (6.3-8.2) g/dL Albumin (3.5-5.0) g/dL Albumin (PEP) 2.33 L (3.80-4.90) g/dL Tdemc-4-Uwclxgrvv 0.41 H (0.10-0.40) g/dL Beta Globulins 0.55 L (0.60-1.30) g/dL Gamma Globulins 0.56 L (0.70-1.50) g/dL Crossmatch 07/26/19 07/26/19 07/27/19 Range/Units 16:57 22:30 05:40 WBC 21.1 H (3.8-10.6) k/uL RBC 2.07 L (4.30-5.90) m/uL Hgb 6.4 L* (13.0-17.5) gm/dL Hct 20.4 L (39.0-53.0) % Neutrophils # 18.6 H (1.3-7.7) k/uL Lymphocytes # 0.9 L (1.0-4.8) k/uL Sodium (137-145) mmol/L Carbon Dioxide (22-30) mmol/L BUN (9-20) mg/dL Creatinine (0.66-1.25) mg/dL Glucose (74-99) mg/dL POC Glucose (mg/dL) 194 H 218 H (75-99) mg/dL Calcium (8.4-10.2) mg/dL Phosphorus (2.5-4.5) mg/dL ALT (4-49) U/L Alkaline Phosphatase (38-126) U/L Total Protein (6.3-8.2) g/dL Albumin (3.5-5.0) g/dL Albumin (PEP) (3.80-4.90) g/dL Ipfwf-1-Ppvuskone (0.10-0.40) g/dL Beta Globulins (0.60-1.30) g/dL Gamma Globulins (0.70-1.50) g/dL Crossmatch 07/27/19 07/27/19 07/27/19 Range/Units 05:40 07:02 07:07 WBC (3.8-10.6) k/uL RBC (4.30-5.90) m/uL Hgb (13.0-17.5) gm/dL Hct (39.0-53.0) % Neutrophils # (1.3-7.7) k/uL Lymphocytes # (1.0-4.8) k/uL Sodium 136 L (137-145) mmol/L Carbon Dioxide 18 L (22-30) mmol/L BUN 126 H* (9-20) mg/dL Creatinine 7.85 H* (0.66-1.25) mg/dL Glucose 142 H (74-99) mg/dL POC Glucose (mg/dL) 153 H (75-99) mg/dL Calcium 8.0 L (8.4-10.2) mg/dL Phosphorus (2.5-4.5) mg/dL ALT 58 H (4-49) U/L Alkaline Phosphatase 160 H (38-126) U/L Total Protein 5.1 L (6.3-8.2) g/dL Albumin 2.6 L (3.5-5.0) g/dL Albumin (PEP) (3.80-4.90) g/dL Qtpqx-9-Fvegtqpep (0.10-0.40) g/dL Beta Globulins (0.60-1.30) g/dL Gamma Globulins (0.70-1.50) g/dL Crossmatch See Detail Microbiology - Last 24 Hours (Table) 07/23/19 17:00 Catheter Tip Culture - Final Catheter Tip 07/23/19 10:17 Blood Culture - Preliminary Blood No Growth after 72 hours 07/23/19 10:40 Blood Culture - Preliminary Blood No Growth after 72 hours
--- NOTE | 2019-07-27 08:48 | XR ---
EXAMINATION TYPE: XR chest 1V DATE OF EXAM: 07/27/2019 COMPARISON: 07/26/2019 HISTORY: Shortness of breath TECHNIQUE: Single frontal view of the chest is obtained. FINDINGS: NG tube seen with bilateral consolidation and pleural effusion. No overt failure or pneumo thorax. Prominence of the right suprahilar region noted. IMPRESSION: Bibasilar infiltrate and small effusion persist. Findings are stable. Correlate clinical ly.
[2019-07-27] MEDS: IPRATROPIUM-ALBUTEROL 3 ML NEB INHALATION SCH ×4 (08:59→20:29)
--- NOTE | 2019-07-27 11:27 | P.PN ---
Subjective covering Dr. Lopez starting 07/24/2019 This is a pleasant 54-year-old Patient of Dr. Malloy. with past medical history of hypertension and hearing difficulty. Presents with upper abdominal epigastric pain found to have acute pancreatitis secondary to acute cholecystitis with choledocholithiasis. He is status post cholecystectomy on and 07/17. Also patientwas in acute kidney injury and renal failure and eventually needed hemodialysis which is undergoing currently and acute hypoxic respiratory failure status post temporal intubation and extubation. Sepsis is also suspected that's why patient was started on antibiotics and currently is on cefepime and Flagyl. patient remains in the ICU and confused although at times he can wake up and talk with some sentences. However when I saw the patient he was still confused and currently waking up for verbal and tactile stimuli.vitals showing tachycardia with heart rate 114-120. he is saturating 93% on 3 L oxygen.Blood pressure 105/59.patient labs showed leukocytosis of 30 2.9K. Hemoglobin stable at 7.3.liver enzymes are slightly elevated. 07/25/2019 Patient mentation is partially improved, the open eyes spontaneously, he follows commands, he answers some questions appropriately, he knows where he is "I am at [facility]" . Patient pulled out his NG tube today, he has no appetite, no abdominal pain or tenderness however patient is poor historian.patient is still febrile 99.9 today and tachycardic 122 and tachypneic 31. He is saturating 93% on room air.he still have significant leukocytosis of 30 1.5K, hemoglobin is 7.0.sugar is controlled and divided enzymes mildly elevated.MARICHUY drain is in place. Patients will need a CAT scan of the abdomen and pelvis with oral contrast to rule out abscess, recommended by ID team currently patient is on Flagyl, cefepime and IV vancomycin. 07/26/2019 Patient confusion is improving gradually, his lethargic with generalized weakness. NG tube is in place. Bedside nurse planning to do a bedside swallow evaluation. He can resume his diet if he passes. Infectious disease consult her current CAT scan of the abdomen which showed pseudocyst however surgical think no need for any surgical intervention other than conservative management and keep monitoring. he still somewhat tachycardic and tachypneic. Leukocytosis improving down to 20 7K, hemoglobin stable at 7.0, platelets 152k. Patient currently on cefepime, Flagyl however her vancomycin was discontinued. Medial drain has been added. 07/27/2019 Patient is seen today and the general floor and select. He is confused and lethargic he opens eyes to verbal stimuli but go back to sleep right away. Was getting hemodialysis and patient could not provide information. His blood pressure 133/82, heart rate 100-114. Hemoglobin today 6.4. Patient is 11 to get 1 unit of blood transfusion. Chest x-ray: Stable bibasilar infiltrates. Patient is on cefepime and Flagyl and they got vancomycin dose before. NG tube were stopped and patient was started on liquids diet. Neurologist evaluation is appreciated, most likely patient has metabolic toxic encephalopathy with suspicion of critical illness polyneuropathy he would need prolonged rehabilitation on discharge as well as EMG and nerve conduction studies of the upper lower extremity Objective - Vital Signs Vital signs: Vital Signs Temp 98.2 F 07/27/19 10:20 Pulse 100 07/27/19 10:20 Resp 18 07/27/19 10:20 BP 133/82 07/27/19 10:20 Pulse Ox 96 07/27/19 09:26 Intake & Output 07/26/19 07/27/19 07/27/19 18:59 06:59 18:59 Intake Total 1260 610 430 Output Total 207 245 120 Balance 1053 365 310 Weight 126.9 kg Intake: IV 300 60 0.9 100 60 metroNIDAZOLE-NS PMX 500 200 mg In Saline 1 100ml.bag @ 100 mls/hr IVPB Q8HR [facility] Rx#:[id number] Oral 500 500 120 Tube Feeding 400 50 Blood Product 310 Rc As-1 Unit 310 [id number] Other 60 Output: Drainage 30 60 120 Right Abdomen 30 60 120 Urine 177 185 Other: Voiding Method Indwelling Catheter Indwelling Catheter ABP, PAP, CO, CI - Last Documented Arterial Blood Pressure 96/53 - Exam -GENERAL: The patient is more awake today however he still confused. HEENT: Pupils are round and equally reacting to light. EOMI. No scleral icterus. No conjunctival pallor. Normocephalic, atraumatic. No pharyngeal erythema. No thyromegaly. CARDIOVASCULAR: S1 and S2 present. No murmurs, rubs, or gallops. PULMONARY: Chest is clear to auscultation, no wheezing or crackles. -ABDOMEN: Soft, nontender, nondistended, normoactive bowel sounds. No palpable organomegaly. right surgical wound is closed with dressing is in place. MARICHUY drain is in place with serosanguineous drainage. Left femoral catheter. MUSCULOSKELETAL: No joint swelling or deformity. EXTREMITIES: No cyanosis, clubbing, or pedal edema. NEUROLOGICAL: Gross neurological examination did not reveal any focal deficits. SKIN: No rashes. no petechiae. - Labs CBC & Chem 7: 07/27/19 05:40 07/27/19 05:40 Labs: Abnormal Lab Results - Last 24 Hours (Table) 07/24/19 07/26/19 07/26/19 Range/Units 15:56 04:20 11:45 WBC (3.8-10.6) k/uL RBC (4.30-5.90) m/uL Hgb (13.0-17.5) gm/dL Hct (39.0-53.0) % Neutrophils # (1.3-7.7) k/uL Lymphocytes # (1.0-4.8) k/uL Sodium (137-145) mmol/L Carbon Dioxide (22-30) mmol/L BUN (9-20) mg/dL Creatinine (0.66-1.25) mg/dL Glucose (74-99) mg/dL POC Glucose (mg/dL) 176 H (75-99) mg/dL Calcium (8.4-10.2) mg/dL Phosphorus 10.0 H* (2.5-4.5) mg/dL ALT (4-49) U/L Alkaline Phosphatase (38-126) U/L Total Protein (6.3-8.2) g/dL Albumin (3.5-5.0) g/dL Albumin (PEP) 2.33 L (3.80-4.90) g/dL Piygw-3-Mgxnstzaa 0.41 H (0.10-0.40) g/dL Beta Globulins 0.55 L (0.60-1.30) g/dL Gamma Globulins 0.56 L (0.70-1.50) g/dL Crossmatch 07/26/19 07/26/19 07/27/19 Range/Units 16:57 22:30 05:40 WBC 21.1 H (3.8-10.6) k/uL RBC 2.07 L (4.30-5.90) m/uL Hgb 6.4 L* (13.0-17.5) gm/dL Hct 20.4 L (39.0-53.0) % Neutrophils # 18.6 H (1.3-7.7) k/uL Lymphocytes # 0.9 L (1.0-4.8) k/uL Sodium (137-145) mmol/L Carbon Dioxide (22-30) mmol/L BUN (9-20) mg/dL Creatinine (0.66-1.25) mg/dL Glucose (74-99) mg/dL POC Glucose (mg/dL) 194 H 218 H (75-99) mg/dL Calcium (8.4-10.2) mg/dL Phosphorus (2.5-4.5) mg/dL ALT (4-49) U/L Alkaline Phosphatase (38-126) U/L Total Protein (6.3-8.2) g/dL Albumin (3.5-5.0) g/dL Albumin (PEP) (3.80-4.90) g/dL Aqcxi-8-Olflmmckx (0.10-0.40) g/dL Beta Globulins (0.60-1.30) g/dL Gamma Globulins (0.70-1.50) g/dL Crossmatch 07/27/19 07/27/19 07/27/19 Range/Units 05:40 07:02 07:07 WBC (3.8-10.6) k/uL RBC (4.30-5.90) m/uL Hgb (13.0-17.5) gm/dL Hct (39.0-53.0) % Neutrophils # (1.3-7.7) k/uL Lymphocytes # (1.0-4.8) k/uL Sodium 136 L (137-145) mmol/L Carbon Dioxide 18 L (22-30) mmol/L BUN 126 H* (9-20) mg/dL Creatinine 7.85 H* (0.66-1.25) mg/dL Glucose 142 H (74-99) mg/dL POC Glucose (mg/dL) 153 H (75-99) mg/dL Calcium 8.0 L (8.4-10.2) mg/dL Phosphorus (2.5-4.5) mg/dL ALT 58 H (4-49) U/L Alkaline Phosphatase 160 H (38-126) U/L Total Protein 5.1 L (6.3-8.2) g/dL Albumin 2.6 L (3.5-5.0) g/dL Albumin (PEP) (3.80-4.90) g/dL Hpebm-8-Yyneanxtc (0.10-0.40) g/dL Beta Globulins (0.60-1.30) g/dL Gamma Globulins (0.70-1.50) g/dL Crossmatch See Detail Microbiology - Last 24 Hours (Table) 07/23/19 10:17 Blood Culture Gram Stain - Final Blood Blood Culture - Final Coagulase Negative Staph 07/23/19 17:00 Catheter Tip Culture - Final Catheter Tip 07/23/19 10:17 Blood Culture - Preliminary Blood No Growth after 72 hours 07/23/19 10:40 Blood Culture - Preliminary Blood No Growth after 72 hours Assessment and Plan Assessment: gallstone pancreatitis with acute cholecystitis and choledocholithiasis. Status post cholecystectomy Possible sepsis secondary to above Acute hypoxic respiratory failure Pancreatic pseudocyst Acute kidney injury needing hemodialysis Hypertension history of hearing difficulty Plan: this is a pleasant 54 years old male who presents with gallstone pancreatitis status post cholecystectomy. Continue with antibiotics with cefepime and Flagyl .follow-up recommendation by infectious disease. Follow-up recommendation by other consultants including picker/puller, surgical service and critical care tea . Labs and medication were reviewed.. Continue same treatment. Continue with symptomatic treatment. Resume home medication. Monitor lytes and vitals. DVT and GI prophylaxis. Further recommendations of the clinical course of the patient DVT prophylaxis: Subcutaneous heparin GI Prophylaxis: Protonix Prognosis is guarded
--- NOTE | 2019-07-27 11:54 | P.PN ---
<Eveline Yoder - Last Filed: 07/27/19 11:29> Subjective Progress Note Date: 07/27/19 Patient seen and evaluated sleeping in bed. Patient is currently undergoing dialysis treatment per intact right femoral catheter. Per dialysis nurse, patient is alert and oriented 4 today. Patient has been advanced to a full liquid diet. Objective - Vital Signs Vital signs: Vital Signs Temp 98.2 F 07/27/19 10:20 Pulse 100 07/27/19 10:20 Resp 18 07/27/19 10:20 BP 133/82 07/27/19 10:20 Pulse Ox 96 07/27/19 09:26 Intake & Output 07/26/19 07/27/19 07/27/19 18:59 06:59 18:59 Intake Total 1260 610 430 Output Total 207 245 120 Balance 1053 365 310 Weight 126.9 kg Intake: IV 300 60 0.9 100 60 metroNIDAZOLE-NS PMX 500 200 mg In Saline 1 100ml.bag @ 100 mls/hr IVPB Q8HR [facility] Rx#:[id number] Oral 500 500 120 Tube Feeding 400 50 Blood Product 310 Rc As-1 Unit 310 [id number] Other 60 Output: Drainage 30 60 120 Right Abdomen 30 60 120 Urine 177 185 Other: Voiding Method Indwelling Catheter Indwelling Catheter ABP, PAP, CO, CI - Last Documented Arterial Blood Pressure 96/53 - Exam General appearance: Sleeping, in no apparent distress. HET: Head is normocephalic and atraumatic. Heart: S1 S2. Regular rate and rhythm. Lungs: No crackles or wheezes are heard. Extremities: Normal skin color and turgor. - Labs CBC & Chem 7: 07/27/19 05:40 07/27/19 05:40 Labs: Abnormal Lab Results - Last 24 Hours (Table) 07/24/19 07/26/19 07/26/19 Range/Units 15:56 04:20 11:45 WBC (3.8-10.6) k/uL RBC (4.30-5.90) m/uL Hgb (13.0-17.5) gm/dL Hct (39.0-53.0) % Neutrophils # (1.3-7.7) k/uL Lymphocytes # (1.0-4.8) k/uL Sodium (137-145) mmol/L Carbon Dioxide (22-30) mmol/L BUN (9-20) mg/dL Creatinine (0.66-1.25) mg/dL Glucose (74-99) mg/dL POC Glucose (mg/dL) 176 H (75-99) mg/dL Calcium (8.4-10.2) mg/dL Phosphorus 10.0 H* (2.5-4.5) mg/dL ALT (4-49) U/L Alkaline Phosphatase (38-126) U/L Total Protein (6.3-8.2) g/dL Albumin (3.5-5.0) g/dL Albumin (PEP) 2.33 L (3.80-4.90) g/dL Klfwm-5-Mttgfbodi 0.41 H (0.10-0.40) g/dL Beta Globulins 0.55 L (0.60-1.30) g/dL Gamma Globulins 0.56 L (0.70-1.50) g/dL Crossmatch 07/26/19 07/26/19 07/27/19 Range/Units 16:57 22:30 05:40 WBC 21.1 H (3.8-10.6) k/uL RBC 2.07 L (4.30-5.90) m/uL Hgb 6.4 L* (13.0-17.5) gm/dL Hct 20.4 L (39.0-53.0) % Neutrophils # 18.6 H (1.3-7.7) k/uL Lymphocytes # 0.9 L (1.0-4.8) k/uL Sodium (137-145) mmol/L Carbon Dioxide (22-30) mmol/L BUN (9-20) mg/dL Creatinine (0.66-1.25) mg/dL Glucose (74-99) mg/dL POC Glucose (mg/dL) 194 H 218 H (75-99) mg/dL Calcium (8.4-10.2) mg/dL Phosphorus (2.5-4.5) mg/dL ALT (4-49) U/L Alkaline Phosphatase (38-126) U/L Total Protein (6.3-8.2) g/dL Albumin (3.5-5.0) g/dL Albumin (PEP) (3.80-4.90) g/dL Qlpig-2-Geacuvxzi (0.10-0.40) g/dL Beta Globulins (0.60-1.30) g/dL Gamma Globulins (0.70-1.50) g/dL Crossmatch 07/27/19 07/27/19 07/27/19 Range/Units 05:40 07:02 07:07 WBC (3.8-10.6) k/uL RBC (4.30-5.90) m/uL Hgb (13.0-17.5) gm/dL Hct (39.0-53.0) % Neutrophils # (1.3-7.7) k/uL Lymphocytes # (1.0-4.8) k/uL Sodium 136 L (137-145) mmol/L Carbon Dioxide 18 L (22-30) mmol/L BUN 126 H* (9-20) mg/dL Creatinine 7.85 H* (0.66-1.25) mg/dL Glucose 142 H (74-99) mg/dL POC Glucose (mg/dL) 153 H (75-99) mg/dL Calcium 8.0 L (8.4-10.2) mg/dL Phosphorus (2.5-4.5) mg/dL ALT 58 H (4-49) U/L Alkaline Phosphatase 160 H (38-126) U/L Total Protein 5.1 L (6.3-8.2) g/dL Albumin 2.6 L (3.5-5.0) g/dL Albumin (PEP) (3.80-4.90) g/dL Mbukp-8-Iadouvrxe (0.10-0.40) g/dL Beta Globulins (0.60-1.30) g/dL Gamma Globulins (0.70-1.50) g/dL Crossmatch See Detail Microbiology - Last 24 Hours (Table) 07/23/19 10:17 Blood Culture Gram Stain - Final Blood Blood Culture - Final Coagulase Negative Staph 07/23/19 17:00 Catheter Tip Culture - Final Catheter Tip 07/23/19 10:17 Blood Culture - Preliminary Blood No Growth after 72 hours 07/23/19 10:40 Blood Culture - Preliminary Blood No Growth after 72 hours Assessment and Plan Assessment: Acute kidney injury, currently hemodialysis dependent. Maintained on daily dialysis. Severe pancreatitis, improving Plan: Continue dialysis as ordered per nephrology. The patient is scheduled to have tunneled dialysis catheter placed tomorrow morning with Dr. Chaves. Patient to be nothing by mouth after midnight and hold morning heparin dose. The above dictated assessment and findings were discussed with after Anastacio. The impression and plan of care have been directed as dictated. <Megha Chaves - Last Filed: 07/27/19 13:08> Objective - Vital Signs Vital signs: Vital Signs Temp 98.6 F 07/27/19 13:00 Pulse 114 H 07/27/19 13:00 Resp 18 07/27/19 13:00 BP 142/87 07/27/19 13:00 Pulse Ox 96 07/27/19 09:26 Intake & Output 07/26/19 07/27/19 07/27/19 18:59 06:59 18:59 Intake Total 1260 610 430 Output Total 762 629 4035 Balance 1053 365 -2590 Weight 126.9 kg Intake: IV 300 60 0.9 100 60 metroNIDAZOLE-NS PMX 500 200 mg In Saline 1 100ml.bag @ 100 mls/hr IVPB Q8HR [facility] Rx#:[id number] Oral 500 500 120 Tube Feeding 400 50 Blood Product 310 Rc As-1 Unit 310 [id number] Other 60 Output: Drainage 30 60 120 Right Abdomen 30 60 120 Urine 177 185 400 Hemodialysis 2500 Other: Voiding Method Indwelling Catheter Indwelling Catheter ABP, PAP, CO, CI - Last Documented Arterial Blood Pressure 96/53 - Labs CBC & Chem 7: 07/27/19 05:40 07/27/19 05:40 Labs: Abnormal Lab Results - Last 24 Hours (Table) 07/24/19 07/26/19 07/26/19 Range/Units 15:56 04:20 16:57 WBC (3.8-10.6) k/uL RBC (4.30-5.90) m/uL Hgb (13.0-17.5) gm/dL Hct (39.0-53.0) % Neutrophils # (1.3-7.7) k/uL Lymphocytes # (1.0-4.8) k/uL Sodium (137-145) mmol/L Carbon Dioxide (22-30) mmol/L BUN (9-20) mg/dL Creatinine (0.66-1.25) mg/dL Glucose (74-99) mg/dL POC Glucose (mg/dL) 194 H (75-99) mg/dL Calcium (8.4-10.2) mg/dL Phosphorus 10.0 H* (2.5-4.5) mg/dL ALT (4-49) U/L Alkaline Phosphatase (38-126) U/L Total Protein (6.3-8.2) g/dL Albumin (3.5-5.0) g/dL Albumin (PEP) 2.33 L (3.80-4.90) g/dL Qcknm-1-Zaclfpoih 0.41 H (0.10-0.40) g/dL Beta Globulins 0.55 L (0.60-1.30) g/dL Gamma Globulins 0.56 L (0.70-1.50) g/dL Crossmatch 07/26/19 07/27/19 07/27/19 Range/Units 22:30 05:40 05:40 WBC 21.1 H (3.8-10.6) k/uL RBC 2.07 L (4.30-5.90) m/uL Hgb 6.4 L* (13.0-17.5) gm/dL Hct 20.4 L (39.0-53.0) % Neutrophils # 18.6 H (1.3-7.7) k/uL Lymphocytes # 0.9 L (1.0-4.8) k/uL Sodium 136 L (137-145) mmol/L Carbon Dioxide 18 L (22-30) mmol/L BUN 126 H* (9-20) mg/dL Creatinine 7.85 H* (0.66-1.25) mg/dL Glucose 142 H (74-99) mg/dL POC Glucose (mg/dL) 218 H (75-99) mg/dL Calcium 8.0 L (8.4-10.2) mg/dL Phosphorus (2.5-4.5) mg/dL ALT 58 H (4-49) U/L Alkaline Phosphatase 160 H (38-126) U/L Total Protein 5.1 L (6.3-8.2) g/dL Albumin 2.6 L (3.5-5.0) g/dL Albumin (PEP) (3.80-4.90) g/dL Menlk-8-Zoqbhlhwq (0.10-0.40) g/dL Beta Globulins (0.60-1.30) g/dL Gamma Globulins (0.70-1.50) g/dL Crossmatch 07/27/19 07/27/19 07/27/19 Range/Units 07:02 07:07 12:05 WBC (3.8-10.6) k/uL RBC (4.30-5.90) m/uL Hgb (13.0-17.5) gm/dL Hct (39.0-53.0) % Neutrophils # (1.3-7.7) k/uL Lymphocytes # (1.0-4.8) k/uL Sodium (137-145) mmol/L Carbon Dioxide (22-30) mmol/L BUN (9-20) mg/dL Creatinine (0.66-1.25) mg/dL Glucose (74-99) mg/dL POC Glucose (mg/dL) 153 H 139 H (75-99) mg/dL Calcium (8.4-10.2) mg/dL Phosphorus (2.5-4.5) mg/dL ALT (4-49) U/L Alkaline Phosphatase (38-126) U/L Total Protein (6.3-8.2) g/dL Albumin (3.5-5.0) g/dL Albumin (PEP) (3.80-4.90) g/dL Kdgxp-4-Zeuaidzjb (0.10-0.40) g/dL Beta Globulins (0.60-1.30) g/dL Gamma Globulins (0.70-1.50) g/dL Crossmatch See Detail Microbiology - Last 24 Hours (Table) 07/23/19 10:17 Blood Culture Gram Stain - Final Blood Blood Culture - Final Coagulase Negative Staph 07/23/19 17:00 Catheter Tip Culture - Final Catheter Tip 07/23/19 10:17 Blood Culture - Preliminary Blood No Growth after 72 hours 07/23/19 10:40 Blood Culture - Preliminary Blood No Growth after 72 hours Assessment and Plan Plan: Pt s/e with [facility]. Plan for tunneled dialysis catheter tomorrow. Check AM labs, monitor hgb, transfuse PRN. Discussed with ID, no bacteremia leukocytosis improving. OK for TDC per ID.
[2019-07-27] MEDS ORDERED: HEPARIN SODIUM,PORCINE 5,000 UNIT/ML 1 ML VIAL ONE (12:00)
[2019-07-27 12:07] LABS: Glucose,Whole Blood 139 mg/dL (75-99)
--- NOTE | 2019-07-27 12:22 | P.PN ---
Subjective Progress Note Date: 07/27/19 Principal diagnosis: Acute gallstone pancreatitis On 07/23/2019 the patient is postop day #6 the patient underwent open cholecystectomy for gallstone pancreatitis and the patient multisystem organ failure. I was able to extubate the patient. As a complication of hisdisease the patient developed an acute kidney injury. Is currently on hemodialysis on a daily basis. A total of 4 L of fluid was ultrafiltrate yesterday. His urine output has improved and the patient is producing around 15-20 mL an hour of urine output. He is currently undergoing dialysis and the goal is to ultrafiltrate him for another 4 L today. Chest x-ray shows small bilateral pleural effusion slightly worse on the left. NG tube is in place. He is receiving enteral feeding for nutritional support. He was able to tolerate that. He is admitted intensive an hour of vital high protein. No fever. No chills. No aspiration. This surgical wound site is dry clean and intact. MARICHUY drain is in place. He is still on a combination of antibiotics utilizing cefepime and Flagyl. White cell count remains elevated at 30. The pro- calcitonin level was sent and the level was at 2.25. As such, there is an underlying concern for sepsis. I was concerned about underlying infection. I added vancomycin to his regimen. Nevertheless the cultures are negative. The catheter is obviously new within the patient has a right femoral hemodialysis catheter that was inserted 2 days ago and he has a left IJ triple-lumen catheter was inserted on 07/13/2019 He is slightly tachycardic. He is having a low- grade fever of 100.1 On 07/24/2019, patient is now postoperative day #7. He is status post open ch olecystectomy for gallstone pancreatitis. And he developed multisystem organ failure. Patient was eventually extubated, however his overall status remains very marginal. Patient is on 3 L nasal cannula, receiving hemodialysis and ultrafiltration. Chest x-ray showed mostly bibasilar atelectasis and small bilateral pleural effusions. Underlying pneumonia is not entirely ruled out, felt to be less likely. Patient seems to be nonverbal. And has been as such since admission, mental status is questionable, hence I recommended neurology evaluation. WBC count today is 32.9 hemoglobin is 7.3. Blood cultures have been negative on along. are pending. Patient remains on vancomycin. He is als o on metronidazole. Transaminases were relatively a bit elevated. BUN is 119 creatinine is 7.12 today On 07/25/2019 patient seen in follow-up in the intensive care unit, is awake and alert, but very weak, he is nodding his head appropriately to simple questions, however he is not verbalizing, also has severe generalized weakness, and he is not able to squeeze with his hands on command. Yesterday he had hemodialysis with removal of 2 L of fluid, today he is having 3-1/2 L of fluid removed, blood pressure seems to be tolerating hemodialysis better today, Midrin was given, denies any respiratory difficulty, lung sounds are coarse, but good air entry noted bilaterally, room air pulse ox is 93%, low-grade fevers, slightly tachycardic on the monitor, sinus mechanism. Not in any vasopressor support. This morning he pulled out his NG tube, and he is awaiting evaluation by speech therapy for bedside swallow evaluation, current antibiotics include cefepime and Flagyl and vancomycin. Cultures are negative thus far including sputum, blood cultures and urine culture, isolated blood culture from 07/23/2019 showed coagulase-negative staph likely contaminant. ID service is following. On 07/27/2019 patient seen in follow-up on selective care unit. He is awake and alert, NG tube has been out, patient has passed a swallow evaluation and he is tolerating full liquid diet, worsening shortness of breath, he is on Pulmicort oxygen at 2 L of oxygen, with a pulse ox of 97%, have a low-grade fevers last night, afebrile this morning. Hemodynamically patient is stable, is having hemodialysis treatment this morning, with the goal of removal of 4 L of fluid. Today's chest x-ray has been reviewed, showing bibasilar infiltrates and small pleural effusions. Overall generalized anasarca is improving, some residual pitting edema in his upper lower extremities. Chaves catheter is in place, and patient is producing urine. Today's labs have been reviewed, blood blood cell count is trending down, down to 21.1 on today's labs, hemoglobin is 6.4 and patient will be transfused with 1 unit of packed red blood cells with hemodialysis. Serum sodium is 136, potassium is 4.8, CO2 is 18, B1 is 126 and creatinine 7.85. Alk phosphatase is down to 160. All cultures remain negative, including catheter tip cultures. Remains on cefepime and vancomycin Objective - Vital Signs Vital signs: Vital Signs Temp 98.2 F 07/27/19 10:20 Pulse 100 07/27/19 10:20 Resp 18 07/27/19 10:20 BP 133/82 07/27/19 10:20 Pulse Ox 96 07/27/19 09:26 Intake & Output 07/26/19 07/27/19 07/27/19 18:59 06:59 18:59 Intake Total 1260 610 430 Output Total 207 245 520 Balance 1053 365 -90 Weight 126.9 kg Intake: IV 300 60 0.9 100 60 metroNIDAZOLE-NS PMX 500 200 mg In Saline 1 100ml.bag @ 100 mls/hr IVPB Q8HR [facility] Rx#:[id number] Oral 500 500 120 Tube Feeding 400 50 Blood Product 310 Rc As-1 Unit 310 [id number] Other 60 Output: Drainage 30 60 120 Right Abdomen 30 60 120 Urine 177 185 400 Other: Voiding Method Indwelling Catheter Indwelling Catheter ABP, PAP, CO, CI - Last Documented Arterial Blood Pressure 96/53 - Exam GENERAL EXAM: Alert, very weak, 54-year-old white male, on 2l/min with a pulse ox of 97%, having hemodialysis done, answering questions, oriented to self and place. Still very generally weak HEAD: Normocephalic/atraumatic. EYES: Normal reaction of pupils, equal size. Conjunctiva pink, sclera white. NOSE: Clear with pink turbinates. THROAT: No erythema or exudates. NECK: No masses, no JVD, no thyroid enlargement, no adenopathy. CHEST: No chest wall deformity. Symmetrical expansion. LUNGS: Equal air entry with coarse breath sounds, but no wheeze, rhonchi or dullness. CVS: Regular rate and rhythm, normal S1 and S2, no gallops, no murmurs, no rubs ABDOMEN: Soft, nontender. No hepatosplenomegaly, normal bowel sounds, no guarding or rigidity. EXTREMITIES: No clubbing, 1+ edema involving upper and lower extremities, and trunk, improving with ultrafiltration, no cyanosis, 2+ pulses and upper and lower extremities. MUSCULOSKELETAL: Muscle strength and tone normal. SPINE: No scoliosis or deformity SKIN: No rashes CENTRAL NERVOUS SYSTEM: Alert and oriented -2. No focal deficits, tone is normal in all 4 extremities. PSYCHIATRIC: Alert and oriented -2. Appropriate affect. Intact judgment and insight. - Labs CBC & Chem 7: 07/27/19 05:40 07/27/19 05:40 Labs: Abnormal Lab Results - Last 24 Hours (Table) 07/24/19 07/26/19 07/26/19 Range/Units 15:56 04:20 16:57 WBC (3.8-10.6) k/uL RBC (4.30-5.90) m/uL Hgb (13.0-17.5) gm/dL Hct (39.0-53.0) % Neutrophils # (1.3-7.7) k/uL Lymphocytes # (1.0-4.8) k/uL Sodium (137-145) mmol/L Carbon Dioxide (22-30) mmol/L BUN (9-20) mg/dL Creatinine (0.66-1.25) mg/dL Glucose (74-99) mg/dL POC Glucose (mg/dL) 194 H (75-99) mg/dL Calcium (8.4-10.2) mg/dL Phosphorus 10.0 H* (2.5-4.5) mg/dL ALT (4-49) U/L Alkaline Phosphatase (38-126) U/L Total Protein (6.3-8.2) g/dL Albumin (3.5-5.0) g/dL Albumin (PEP) 2.33 L (3.80-4.90) g/dL Hqhss-1-Udhhoyohe 0.41 H (0.10-0.40) g/dL Beta Globulins 0.55 L (0.60-1.30) g/dL Gamma Globulins 0.56 L (0.70-1.50) g/dL Crossmatch 07/26/19 07/27/19 07/27/19 Range/Units 22:30 05:40 05:40 WBC 21.1 H (3.8-10.6) k/uL RBC 2.07 L (4.30-5.90) m/uL Hgb 6.4 L* (13.0-17.5) gm/dL Hct 20.4 L (39.0-53.0) % Neutrophils # 18.6 H (1.3-7.7) k/uL Lymphocytes # 0.9 L (1.0-4.8) k/uL Sodium 136 L (137-145) mmol/L Carbon Dioxide 18 L (22-30) mmol/L BUN 126 H* (9-20) mg/dL Creatinine 7.85 H* (0.66-1.25) mg/dL Glucose 142 H (74-99) mg/dL POC Glucose (mg/dL) 218 H (75-99) mg/dL Calcium 8.0 L (8.4-10.2) mg/dL Phosphorus (2.5-4.5) mg/dL ALT 58 H (4-49) U/L Alkaline Phosphatase 160 H (38-126) U/L Total Protein 5.1 L (6.3-8.2) g/dL Albumin 2.6 L (3.5-5.0) g/dL Albumin (PEP) (3.80-4.90) g/dL Frulu-8-Ovquzsbty (0.10-0.40) g/dL Beta Globulins (0.60-1.30) g/dL Gamma Globulins (0.70-1.50) g/dL Crossmatch 07/27/19 07/27/19 07/27/19 Range/Units 07:02 07:07 12:05 WBC (3.8-10.6) k/uL RBC (4.30-5.90) m/uL Hgb (13.0-17.5) gm/dL Hct (39.0-53.0) % Neutrophils # (1.3-7.7) k/uL Lymphocytes # (1.0-4.8) k/uL Sodium (137-145) mmol/L Carbon Dioxide (22-30) mmol/L BUN (9-20) mg/dL Creatinine (0.66-1.25) mg/dL Glucose (74-99) mg/dL POC Glucose (mg/dL) 153 H 139 H (75-99) mg/dL Calcium (8.4-10.2) mg/dL Phosphorus (2.5-4.5) mg/dL ALT (4-49) U/L Alkaline Phosphatase (38-126) U/L Total Protein (6.3-8.2) g/dL Albumin (3.5-5.0) g/dL Albumin (PEP) (3.80-4.90) g/dL Gqgyv-6-Mneeyroxk (0.10-0.40) g/dL Beta Globulins (0.60-1.30) g/dL Gamma Globulins (0.70-1.50) g/dL Crossmatch See Detail Microbiology - Last 24 Hours (Table) 07/23/19 10:17 Blood Culture Gram Stain - Final Blood Blood Culture - Final Coagulase Negative Staph 07/23/19 17:00 Catheter Tip Culture - Final Catheter Tip 07/23/19 10:17 Blood Culture - Preliminary Blood No Growth after 72 hours 07/23/19 10:40 Blood Culture - Preliminary Blood No Growth after 72 hours Assessment and Plan Plan: Assessment: #1. Acute gallstone pancreatitis, status post open cholecystectomy postoperative day #9 #2. Severe pancreatitis, improving since surgery, however patient developed multiorgan system failure. Improving steadily #3. Acute hypoxic respiratory failure secondary to pulmonary edema and pleural effusions related to pancreatitis and acute renal failure #4. Acute kidney injury requiring hemodialysis and patient continues to require dialysis on a daily basis #4. Fever and leukocytosis with hypotension, suggestive of sepsis, all cultures are negative thus far, central line catheter was removed and tip culture is pending #5. History of alcoholism #6. History of hypertension #7. Bilateral hearing loss #8. Suspect component of metabolic encephalopathy or drug-induced encephalopathy, improved #9. Recurrent illness polyneuropathy and myopathy, and will need significant physical therapy and rehab Plan: Maintain aspiration precautions, patient is having hemodialysis treatment, with the goal of removing 4 L of fluid, today's chest x-ray has been reviewed showing bibasilar infiltrates and small pleural effusion. Hemodynamically stable, had some low-grade fevers last night, remains on cefepime and vancomycin, all cultures remain negative thus far, anticipate removal of right groin temporary hemodialysis catheter and placement of a subclavian hemodialysis catheter by vascular surgery. Physical therapy has been consulted. Increase activity as tolerated, patient is tolerating full liquid diet, no nausea vomiting. Surgical service is following. Continue to follow I performed a history & physical examination of the patient and discussed their management with my nurse practitioner, Ligia Jackson. I reviewed the nurse practitioner's note and agree with the documented findings and plan of care. Lung sounds are positive for coarse breath sounds. The findings and the impression was discussed with the patient. I attest to the documentation by the nurse practitioner. Time with Patient: Less than 30
--- NOTE | 2019-07-27 13:40 | P.PN ---
Subjective Progress Note Date: 07/27/19 Patient has been moved to the regular floor. Patient is more alert and awake. Patient is getting hemodialysis as of now. Patient much more alert and awake, and improved as per examination below. Objective - Vital Signs Vital signs: Vital Signs Temp 99.0 F 07/27/19 13:20 Pulse 114 H 07/27/19 13:20 Resp 18 07/27/19 13:20 BP 127/73 07/27/19 13:20 Pulse Ox 98 07/27/19 13:20 Intake & Output 07/26/19 07/27/19 07/27/19 18:59 06:59 18:59 Intake Total 1260 610 430 Output Total 598 648 3830 Balance 1053 365 -2590 Weight 126.9 kg Intake: IV 300 60 0.9 100 60 metroNIDAZOLE-NS PMX 500 200 mg In Saline 1 100ml.bag @ 100 mls/hr IVPB Q8HR [facility] Rx#:[id number] Oral 500 500 120 Tube Feeding 400 50 Blood Product 310 Rc As-1 Unit 310 [id number] Other 60 Output: Drainage 30 60 120 Right Abdomen 30 60 120 Urine 177 185 400 Hemodialysis 2500 Other: Voiding Method Indwelling Catheter Indwelling Catheter Indwelling Catheter ABP, PAP, CO, CI - Last Documented Arterial Blood Pressure 96/53 - Exam Patient is much more alert and awake. His speech has improved. Patient able to lift his arms up off the bed therefore deltoid is 3+ on the right, 3 on left. Biceps are 4, awning maker and installer is 4 -bilaterally. Patient able to lift his legs off the bed slightly 30. Ankles appears at least 4+. This is much improved as compared to examination as of yesterday. Patient's neck is supple. No stiffness. - Labs CBC & Chem 7: 07/27/19 05:40 07/27/19 05:40 Labs: Abnormal Lab Results - Last 24 Hours (Table) 07/24/19 07/26/19 07/26/19 Range/Units 15:56 04:20 16:57 WBC (3.8-10.6) k/uL RBC (4.30-5.90) m/uL Hgb (13.0-17.5) gm/dL Hct (39.0-53.0) % Neutrophils # (1.3-7.7) k/uL Lymphocytes # (1.0-4.8) k/uL Sodium (137-145) mmol/L Carbon Dioxide (22-30) mmol/L BUN (9-20) mg/dL Creatinine (0.66-1.25) mg/dL Glucose (74-99) mg/dL POC Glucose (mg/dL) 194 H (75-99) mg/dL Calcium (8.4-10.2) mg/dL Phosphorus 10.0 H* (2.5-4.5) mg/dL ALT (4-49) U/L Alkaline Phosphatase (38-126) U/L Total Protein (6.3-8.2) g/dL Albumin (3.5-5.0) g/dL Albumin (PEP) 2.33 L (3.80-4.90) g/dL Sxjso-5-Yqivjsnet 0.41 H (0.10-0.40) g/dL Beta Globulins 0.55 L (0.60-1.30) g/dL Gamma Globulins 0.56 L (0.70-1.50) g/dL Crossmatch 07/26/19 07/27/19 07/27/19 Range/Units 22:30 05:40 05:40 WBC 21.1 H (3.8-10.6) k/uL RBC 2.07 L (4.30-5.90) m/uL Hgb 6.4 L* (13.0-17.5) gm/dL Hct 20.4 L (39.0-53.0) % Neutrophils # 18.6 H (1.3-7.7) k/uL Lymphocytes # 0.9 L (1.0-4.8) k/uL Sodium 136 L (137-145) mmol/L Carbon Dioxide 18 L (22-30) mmol/L BUN 126 H* (9-20) mg/dL Creatinine 7.85 H* (0.66-1.25) mg/dL Glucose 142 H (74-99) mg/dL POC Glucose (mg/dL) 218 H (75-99) mg/dL Calcium 8.0 L (8.4-10.2) mg/dL Phosphorus (2.5-4.5) mg/dL ALT 58 H (4-49) U/L Alkaline Phosphatase 160 H (38-126) U/L Total Protein 5.1 L (6.3-8.2) g/dL Albumin 2.6 L (3.5-5.0) g/dL Albumin (PEP) (3.80-4.90) g/dL Publf-6-Lfpjhopgf (0.10-0.40) g/dL Beta Globulins (0.60-1.30) g/dL Gamma Globulins (0.70-1.50) g/dL Crossmatch 07/27/19 07/27/19 07/27/19 Range/Units 07:02 07:07 12:05 WBC (3.8-10.6) k/uL RBC (4.30-5.90) m/uL Hgb (13.0-17.5) gm/dL Hct (39.0-53.0) % Neutrophils # (1.3-7.7) k/uL Lymphocytes # (1.0-4.8) k/uL Sodium (137-145) mmol/L Carbon Dioxide (22-30) mmol/L BUN (9-20) mg/dL Creatinine (0.66-1.25) mg/dL Glucose (74-99) mg/dL POC Glucose (mg/dL) 153 H 139 H (75-99) mg/dL Calcium (8.4-10.2) mg/dL Phosphorus (2.5-4.5) mg/dL ALT (4-49) U/L Alkaline Phosphatase (38-126) U/L Total Protein (6.3-8.2) g/dL Albumin (3.5-5.0) g/dL Albumin (PEP) (3.80-4.90) g/dL Vrolm-9-Vswcmuohi (0.10-0.40) g/dL Beta Globulins (0.60-1.30) g/dL Gamma Globulins (0.70-1.50) g/dL Crossmatch See Detail Microbiology - Last 24 Hours (Table) 07/23/19 10:17 Blood Culture - Preliminary Blood No Growth after 96 hours 07/23/19 10:40 Blood Culture - Preliminary Blood No Growth after 96 hours 07/23/19 10:17 Blood Culture Gram Stain - Final Blood Blood Culture - Final Coagulase Negative Staph 07/23/19 17:00 Catheter Tip Culture - Final Catheter Tip Assessment and Plan Assessment: * Altered mental status, likely related to toxic metabolic encephalopathy. * Generalized weakness, with hyporeflexia. 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 Patient clinically much improved today as compared to yesterday. * Acute kidney injury with acute renal failure, requiring dialysis. * Acute gallstones pancreatitis * Acute cholecystitis, status post open cholecystectomy * Elevated liver enzymes * Significant anemia * Leukocytosis, possible due to sepsis Plan: * Patient's examination is nonfocal. His altered mental status likely related to acute toxic metabolic encephalopathy, although slowly improving. * Patient's generalized weakness apparently has much improved as compared to yesterday. Generalized weakness possibly related to deconditioning from prolonged hospitalization versus critical illness polyneuropathy. * B12 1514, folate 8.3, TSH 5.3 mildly elevated, free T4 0.73, mildly decreased, hemoglobin A1c 5.1, serum protein electrophoresis negative for any monoclonal gammopathy and ammonia level normal 12. * Patient probably will need EMG and nerve conduction studies of upper and lower extremities, when possible, if weakness persists. * Cancel MRI cervical spine, as patient has shown remarkable improvement. Patient cannot have MRI because of recent cholecystectomy also. * Your medical management.
--- NOTE | 2019-07-27 14:06 | IR ---
PICC LINE PLACEMENT: HISTORY: Infection requiring long-term antibiotic therapy PROCEDURE: Ultrasound and fluoroscopic guidance of PICC line placement. COMPLICATIONS: None ANESTHESIA: 1. 1% Lidocaine locally. FINDINGS/TECHNIQUE: The procedure was explained to the patient. The risks, complications, benefits and alternatives were discussed and any questions were answered. Informed consent was obtained. The patient was placed supine on the fluoroscopic table and prepped and draped in the usual sterile fash ion. Utilizing a 21 gauge needle and sonographic and fluoroscopic guidance, access in the left ceph alic vein was achieved and there is placement of a 0.018 guidewire. The vein is patent. A 4-F sheat h was placed over the guidewire. The guidewire and dilator were removed and a 4-F. PICC line was zully isidro through the sheath with the tip at the level of the SVC. The sheath was removed, the catheter wa s flushed and sutured into position. The patient was stable throughout the procedure and remained st able upon discharge from the Department of Radiology. The vein puncture was patent under ultrasound. A peacock scale image was obtained to document patency of the vein punctured. All elements of the maximal barrier technique were utilized. FLUOROSCOPY TIME: 0.6 minutes and one image submitted IMPRESSION: Successful PICC line placement under ultrasound and fluoroscopic guidance.
[2019-07-27] MEDS ORDERED: VANCOMYCIN 2,250 MG in SODIUM CHLORIDE 0.9% 500 ML 500 ML IVPB ONE (16:00)
[2019-07-27 17:14] LABS: Glucose,Whole Blood 137 mg/dL (75-99)
--- NOTE | 2019-07-27 17:44 | PN ---
PROGRESS NOTE Patient is seen for followup for acute kidney injury. Patient has been transferred out of the ICU. He is currently comfortable, awake. He is not in any acute distress. He is going down for a PICC line. Patient's urine output is documented at about 360 mL. I am not sure if this is accurate for 24 hours. He was not dialyzed yesterday. Patient's catheter has not been working well and there are plans to change it to IJ PermCath. PHYSICAL EXAMINATION: On examination today, blood pressure was 127/73, heart rate 116 per minute. Patient is afebrile. EXAMINATION OF THE HEART: S1 and S2. EXAMINATION OF LUNGS: Bilateral breath sounds are heard. Decreased breath sounds at bases. ABDOMEN: Soft, obese, non-tender. Examination of lower extremities shows edema 1+ bilaterally. REMOTE SENSING RESEARCH SCIENTIST exam is grossly intact. LABS: Hemoglobin 6.4, sodium 136, potassium 4.8, chloride 101, BUN 126, creatinine 7.85. ASSESSMENT: 1. Acute kidney injury, acute tubular necrosis, currently dialysis-dependent. Patient had been receiving daily dialysis. His catheter was not working well. We will plan on dialysis again tomorrow. Hopefully he will have an IJ PermCath by then. 2. Status post severe pancreatitis, now improving. 3. Generalized debility. 4. Metabolic acidosis secondary to advanced renal failure. 5. Anemia with no active bleeding noted. Patient will be transfused one unit packed RBCs. 6. Metabolic acidosis secondary to renal failure, stable. Continue to maintain patient on dialysis. I will increase the bicarb bath. PLAN: Hemodialysis today and then repeat dialysis again in a.m. hopefully via IJ PermCath. I discussed with Vascular regarding placing a permanent catheter. Patient will need outpatient dialysis. MMODL / IJN: [id number] /
[2019-07-27] MEDS: metroNIDAZOLE 500 MG TAB PO SCH ×2 (18:24→22:56)
[2019-07-27 20:40] LABS: Glucose,Whole Blood 152 mg/dL (75-99)
--- NOTE | 2019-07-27 22:20 | PN ---
PROGRESS NOTE DATE OF SERVICE: 07/27/2019 REASON FOR FOLLOWUP: Leukocytosis and fever. INTERVAL HISTORY: The patient is currently afebrile. The patient is more awake and alert. The patient is breathing comfortably. Denies having any chest pain. Occasional cough. No nausea, no vomiting. The patient did have diarrhea, for which the patient had a fecal management system applied. PHYSICAL EXAMINATION: Blood pressure is 138/77 with a pulse of 112, temperature 98. He is 98% on 2 L nasal cannula. General description is a middle-aged male lying in bed in no distress. RESPIRATORY SYSTEM: Unlabored breathing with decreased breath sounds at the base. No wheeze. HEART: S1, S2. Regular rate and rhythm. ABDOMEN: Soft. No tenderness. LABS: Hemoglobin 6.4, white count 21.1 with a BUN of 126, creatinine 7.5. Urine and catheter blood cultures 07/23 have been negative. Catheter tip negative. Urine is negative. DIAGNOSTIC IMPRESSION AND PLAN: Patient with leukocytosis and low-grade fever in this patient admitted to hospital with gallstone pancreatitis, status post open cholecystectomy with a component of pancreatic pseudocyst. The patient's white count has shown a downward trend and is down to 21,000. No further fever has been reported. Cultures have been negative so far. Covered with cefepime and vancomycin; to continue while monitoring clinical course closely. Family at the bedside. Questions were answered. MMODL / IJN: [id number] /
[2019-07-28] MEDS: CEFEPIME 1 GM in SODIUM CHLORIDE 0.9% 50 ML IVPB SCH (02:26)
[2019-07-28] MEDS: ONDANSETRON 4 MG/2 ML VIAL IVP PRN (02:26)
[2019-07-28] MEDS: HYDROmorphone 2 MG/ML 1 ML SYRINGE IVP PRN ×2 (02:26→18:43)
[2019-07-28] MEDS: HEPARIN SODIUM,PORCINE 5,000 UNIT/ML 1 ML VIAL SQ SCH ×2 (05:38→16:57)
[2019-07-28] MEDS: CALCIUM ACETATE 667 MG TAB PO SCH ×3 (06:05→17:39)
[2019-07-28] MEDS: PANTOPRAZOLE 40 MG TABLET PO SCH (06:05)
[2019-07-28] MEDS: metroNIDAZOLE 500 MG TAB PO SCH ×2 (06:05→16:57)
[2019-07-28 06:12] LABS: Glucose,Whole Blood 133 mg/dL (75-99)
[2019-07-28] MEDS: INSULIN ASPART (NovoLOG) 100 UNIT/ML VIAL SQ SCH ×4 (06:13→21:21)
[2019-07-28 06:45] LABS: Basophils # (A) 0.2 k/uL (0-0.2); Basophils % (A) 1 %; Eosinophils # (A) 0.3 k/uL (0-0.7); Eosinophils % (A) 2 %; HCT 22.3 % (39.0-53.0); HGB 7.2 gm/dL (13.0-17.5); Hypochromasia Slight; Lymphocytes # (A) 1.2 k/uL (1.0-4.8); Lymphocytes % (A) 6 %; MCH 31.2 pg (25.0-35.0); MCHC 32.5 g/dL (31.0-37.0); Mean Platelet Volume 9.2; Monocytes # (A) 0.9 k/uL (0-1.0); Monocytes % (A) 4 %; Neutrophils % (A) 87 %; Platelet Count 101 k/uL (150-450); RBC 2.32 m/uL (4.30-5.90); RDW 15.8 % (11.5-15.5); WBC 20.8 k/uL (3.8-10.6)
[2019-07-28] MEDS: IPRATROPIUM-ALBUTEROL 3 ML NEB INHALATION SCH ×4 (07:26→21:20)
[2019-07-28] MEDS ORDERED: MIDAZOLAM 2 MG/2 ML VIAL ONE (09:14)
[2019-07-28] MEDS ORDERED: KETAMINE 10 MG/ML 20 ML VIAL ONE (09:14)
[2019-07-28] MEDS ORDERED: SODIUM CHLORIDE 0.9% 250 ML IV ONE (09:20)
[2019-07-28] MEDS ORDERED: LIDOCAINE 1% INJ 10MG/ML (20 ML MDV) ONE (09:30)
[2019-07-28] MEDS ORDERED: LIDOCAINE 1% INJ 10MG/ML (20 ML MDV) SQ ONE (09:35)
[2019-07-28] MEDS ORDERED: ceFAZolin 1,000 MG VIAL IV ONE (09:37)
[2019-07-28] MEDS ORDERED: HEPARIN SODIUM 1,000 UN/ML (10ML VL) ONE (09:40)
--- NOTE | 2019-07-28 10:11 | P.OP ---
Date of Procedure: 07/28/19 Description of Procedure: DATE OF PROCEDURE: 07/28/2019 PREOPERATIVE DIAGNOSIS: [Acute renal failure, requiring dialysis, pancreatitis]. PROCEDURE: 1. Ultrasound-guided right internal jugular vein access 2. Placement of a [23] cm tunneled dialysis catheter with fluoroscopic assistance. Surgeon: Anastacio Anesthesia: Kwaku EBShannon minimal PROCEDURE: This patient was brought to the trestle mainternance laborer. The [right] side of the neck and chest was prepped and draped in sterile manner. Ultrasound was utilized and the right internal jugular was identified. The skin overlying was anesthetized with 1% lidocaine plain. Using the ultrasound the internal jugular was cannulated on first attempt with return of dark venous, nonpulsatile blood. The guidewire was advanced freely without any evidence of resistance. The previously decided tunnel was then anesthetized with 1% lidocaine plain. The flush 23 cm catheter was tunneled. Serial dilation of the neck was performed under fluoroscopic imaging. A tear-away sheath was placed. The inner cannula and wire were removed. Catheter was placed. Final imaging revealed no evidence of kinking with good positioning of the tip of the catheter cavoatrial junction. The aspirin was flushed and aspirated freely. It was instilled with contrast. Heparin. The neck incision was approximate with interrupted 4-0 Vicryl. The catheter was sutured in place with 3-0 nylon. Dressings were placed. That point the right femoral vein temporary hemodialysis catheter was removed and manual pressure was held until hemostasis was adequate. The patient was allowed awaken from anesthesia and transported back to the recovery area in stable condition having tolerated his procedure well..
--- NOTE | 2019-07-28 10:22 | IR ---
Fluoroscopy HISTORY: Dialysis catheter placement 0.7 minutes fluoroscopy time supplied to the referring clinician. 307 intraoperative C-arm images do cument the procedure. See dictated report from vascular surgery.
--- NOTE | 2019-07-28 11:28 | XR ---
EXAMINATION TYPE: XR chest 1V portable DATE OF EXAM: 07/28/2019 COMPARISON: Prior chest x-ray 07/27/2019 HISTORY: Status post internal jugular catheter placement TECHNIQUE: Single frontal view of the chest is obtained. FINDINGS: There is been interval placement of right internal jugular central venous catheter, distal tip is over the right atrium. Lung volumes are low. There is no evident pneumothorax. Left-sided PIC C line shows the distal tip over the superior vena cava. Heart size is stable. NG tube has been remov ed. Bibasilar increased density persists. IMPRESSION: No evident complication status post central venous catheter placement.
[2019-07-28 11:44] LABS: Glucose,Whole Blood 120 mg/dL (75-99)
--- NOTE | 2019-07-28 12:05 | P.PN ---
Subjective covering Dr. Lopez starting 07/24/2019 This is a pleasant 54-year-old Patient of Dr. Malloy. with past medical history of hypertension and hearing difficulty. Presents with upper abdominal epigastric pain found to have acute pancreatitis secondary to acute cholecystitis with choledocholithiasis. He is status post cholecystectomy on and 07/17. Also patientwas in acute kidney injury and renal failure and eventually needed hemodialysis which is undergoing currently and acute hypoxic respiratory failure status post temporal intubation and extubation. Sepsis is also suspected that's why patient was started on antibiotics and currently is on cefepime and Flagyl. patient remains in the ICU and confused although at times he can wake up and talk with some sentences. However when I saw the patient he was still confused and currently waking up for verbal and tactile stimuli.vitals showing tachycardia with heart rate 114-120. he is saturating 93% on 3 L oxygen.Blood pressure 105/59.patient labs showed leukocytosis of 30 2.9K. Hemoglobin stable at 7.3.liver enzymes are slightly elevated. 07/25/2019 Patient mentation is partially improved, the open eyes spontaneously, he follows commands, he answers some questions appropriately, he knows where he is "I am at [facility]" . Patient pulled out his NG tube today, he has no appetite, no abdominal pain or tenderness however patient is poor historian.patient is still febrile 99.9 today and tachycardic 122 and tachypneic 31. He is saturating 93% on room air.he still have significant leukocytosis of 30 1.5K, hemoglobin is 7.0.sugar is controlled and divided enzymes mildly elevated.MARICHUY drain is in place. Patients will need a CAT scan of the abdomen and pelvis with oral contrast to rule out abscess, recommended by ID team currently patient is on Flagyl, cefepime and IV vancomycin. 07/26/2019 Patient confusion is improving gradually, his lethargic with generalized weakness. NG tube is in place. Bedside nurse planning to do a bedside swallow evaluation. He can resume his diet if he passes. Infectious disease consult her current CAT scan of the abdomen which showed pseudocyst however surgical think no need for any surgical intervention other than conservative management and keep monitoring. he still somewhat tachycardic and tachypneic. Leukocytosis improving down to 20 7K, hemoglobin stable at 7.0, platelets 152k. Patient currently on cefepime, Flagyl however her vancomycin was discontinued. Medial drain has been added. 07/27/2019 Patient is seen today and the general floor and select. He is confused and lethargic he opens eyes to verbal stimuli but go back to sleep right away. Was getting hemodialysis and patient could not provide information. His blood pressure 133/82, heart rate 100-114. Hemoglobin today 6.4. Patient is 11 to get 1 unit of blood transfusion. Chest x-ray: Stable bibasilar infiltrates. Patient is on cefepime and Flagyl and they got vancomycin dose before. NG tube were stopped and patient was started on liquids diet. Neurologist evaluation is appreciated, most likely patient has metabolic toxic encephalopathy with suspicion of critical illness polyneuropathy he would need prolonged rehabilitation on discharge as well as EMG and nerve conduction studies of the upper lower extremity 07/28/2019 Patient mental status is improving, is more awake and alert and can show understanding. She was updated about his medical problems. He remains on antibiotics for sepsis, source unknown, catheter removed and tip sent to the l ab. Vascular surgery placed and dialysis catheter for him today. Continue with hemodialysis as per wraparound facilitator. Vitals are stable. Continue with antibiotics and his WBC is coming down to 20.8 K today. Objective - Vital Signs Vital signs: Vital Signs Temp 98.7 F 07/28/19 10:20 Pulse 100 07/28/19 07:40 Resp 20 07/28/19 10:20 BP 137/77 07/28/19 10:20 Pulse Ox 96 07/28/19 10:20 Intake & Output 07/27/19 07/28/19 07/28/19 18:59 06:59 18:59 Intake Total 430 120 50 Output Total 3200 805 805 Balance -2770 -685 -755 Weight 126.9 kg 177.5 kg 114 kg Intake: IV 50 Oral 120 120 Blood Product 310 Rc As-1 Unit 310 [id number] Output: Drainage 300 105 30 Right Abdomen 300 105 30 Urine 400 700 775 Hemodialysis 2500 Other: Voiding Method Indwelling Catheter Indwelling Catheter Indwelling Catheter # Bowel Movements 1 ABP, PAP, CO, CI - Last Documented Arterial Blood Pressure 96/53 - Exam -GENERAL: The patient is more awake today however he still confused. HEENT: Pupils are round and equally reacting to light. EOMI. No scleral icterus. No conjunctival pallor. Normocephalic, atraumatic. No pharyngeal erythema. No thyromegaly. CARDIOVASCULAR: S1 and S2 present. No murmurs, rubs, or gallops. PULMONARY: Chest is clear to auscultation, no wheezing or crackles. -ABDOMEN: Soft, nontender, nondistended, normoactive bowel sounds. No palpable organomegaly. right surgical wound is closed with dressing is in place. MARICHUY drain is in place with serosanguineous drainage. Left femoral catheter. MUSCULOSKELETAL: No joint swelling or deformity. EXTREMITIES: No cyanosis, clubbing, or pedal edema. NEUROLOGICAL: Gross neurological examination did not reveal any focal deficits. SKIN: No rashes. no petechiae. - Labs CBC & Chem 7: 07/28/19 06:14 07/27/19 05:40 Labs: Abnormal Lab Results - Last 24 Hours (Table) 07/27/19 07/27/19 07/27/19 Range/Units 12:05 17:13 20:38 WBC (3.8-10.6) k/uL RBC (4.30-5.90) m/uL Hgb (13.0-17.5) gm/dL Hct (39.0-53.0) % RDW (11.5-15.5) % Plt Count (150-450) k/uL Neutrophils # (1.3-7.7) k/uL POC Glucose (mg/dL) 139 H 137 H 152 H (75-99) mg/dL Phosphorus (2.5-4.5) mg/dL 07/28/19 07/28/19 07/28/19 Range/Units 06:10 06:14 06:14 WBC 20.8 H (3.8-10.6) k/uL RBC 2.32 L (4.30-5.90) m/uL Hgb 7.2 L (13.0-17.5) gm/dL Hct 22.3 L (39.0-53.0) % RDW 15.8 H (11.5-15.5) % Plt Count 101 L (150-450) k/uL Neutrophils # 18.0 H (1.3-7.7) k/uL POC Glucose (mg/dL) 133 H (75-99) mg/dL Phosphorus 12.8 H* (2.5-4.5) mg/dL 07/28/19 Range/Units 11:42 WBC (3.8-10.6) k/uL RBC (4.30-5.90) m/uL Hgb (13.0-17.5) gm/dL Hct (39.0-53.0) % RDW (11.5-15.5) % Plt Count (150-450) k/uL Neutrophils # (1.3-7.7) k/uL POC Glucose (mg/dL) 120 H (75-99) mg/dL Phosphorus (2.5-4.5) mg/dL Microbiology - Last 24 Hours (Table) 07/23/19 10:17 Blood Culture Gram Stain - Final Blood Blood Culture - Final Coagulase Negative Staph 07/23/19 10:17 Blood Culture - Preliminary Blood No Growth after 96 hours 07/23/19 10:40 Blood Culture - Preliminary Blood No Growth after 96 hours Assessment and Plan Assessment: gallstone pancreatitis with acute cholecystitis and choledocholithiasis. Status post cholecystectomy Possible sepsis secondary to above Acute hypoxic respiratory failure Pancreatic pseudocyst Acute kidney injury needing hemodialysis Hypertension history of hearing difficulty Plan: this is a pleasant 54 years old male who presents with gallstone pancreatitis status post cholecystectomy. Continue with antibiotics with cefepime and Flagyl .follow-up recommendation by infectious disease. Follow-up recommendation by other consultants including wraparound facilitator, surgical service and critical care team. Labs and medication were reviewed.. Continue same treatment. Continue with symptomatic treatment. Resume home medication. Monitor lytes and vitals. DVT and GI prophylaxis. Further recommendations of the clinical course of the patient DVT prophylaxis: Subcutaneous heparin GI Prophylaxis: Protonix Prognosis is guarded
--- NOTE | 2019-07-28 12:21 | P.PN ---
Progress Note - Text Progress Note Date: 07/28/19 Patient off floor for dialysis catheter placement during rounds. Will attempt to see patient this afternoon
--- NOTE | 2019-07-28 12:59 | CDI ---
Documentation Clarification Form Date: 07/28/2019 12:29:51 PM From: Diana Sanders RN, CCDS Admit Date: 07/11/2019 07:50:00 AM Patient Name: Wm Antonio Visit Number: [id number] Discharge Date: ATTENTION: The Clinical Documentation Specialists (CDI) and [facility] Coding Staff appreciate your assistance in clarifying documentation. Please respond to the clarification below the line at the bottom and electronically sign. The CDI & [facility] Coding staff will review the response and follow-up if needed. Please note: Queries are made part of the Legal Health Record. If you have any questions, please contact the author of this message via ITS. Dr. Fadi Lopez or Dr. Arcenio England: The following has been documented in your progress notes on 07/15/19: Acute cholecystitis secondary to choledocholithiasis with possible ascending cholangitis, causing sepsis. History/Risk Factors:Hypertension Clinical Indicators: 54-year-old female who was admitted on 07/11/19 with complaints of epigastric pain. She was found to be very diaphoretic and clammy, hypertensive and in distress with a rigid abdomen and chest pain. She was ruled in for acute cholecystitis secondary to choledocholithiasis, with early manifestation of possible ascending cholangitis, and acute gallstone pancreatitis. Vital signs 07/11 @21:00 153/116 113 16 97.5 81 % RA On admission labs: WBC 13.0, Total bili 2.9, AST 440, ALT 574, Amylase 2794, Lipase >84501 07/12/19 WBC 24.1, Neutrophils 22.3, potassium 7.1, Creatinine 2.15, Lactic acid 4.2 Treatment: ICU Monitoring IV Fluids bolus Cefepine IV, Flagyl IV Monitor CBC, Liver enzymes, Lytes Definition of Present on Admission (POA): A diagnosis present at the time the order for admission to inpatient status was written. For each diagnosis, documentation must be clear to determine if the condition was present at the time of the patients inpatient admission or developed during the hospital stay. Please clarify if Possible Sepsis was POA: __x__Y = Yes, the condition was present at the time of the order for inpatient admission. ____N = No, the condition was not present at the time of the order for inpatient admission. ____W = Clinically undetermined if the condition was present at the time of the order for inpatient admission. (Last Revision: Jul 2018) MTDD
[2019-07-28] MEDS: SEVELAMER 800 MG TAB PO SCH ×2 (13:33→17:39)
--- NOTE | 2019-07-28 13:36 | P.PN ---
<Cristina Sanderson Jovi - Last Filed: 07/28/19 13:33> Subjective Progress Note Date: 07/28/19 CHIEF COMPLAINT: Abdominal pain HISTORY OF PRESENT ILLNESS: Patient is status post open cholecystectomy. Patient examined at the bedside. No family present. Patient is awake and alert. Communicating with provider. He is tolerating full liquid diet. WBC 20.8. MARICHUY drain appears more serosanguineous today. He underwent dialysis catheter placement today by vascular surgery. Currently undergoing hemodialysis at the time of examination. Hemoglobin is 7.2 today. Patient received 1 unit of RBCs yesterday. PHYSICAL EXAM: VITAL SIGNS: Reviewed GENERAL: Well-developed in no acute distress. HEENT: No sclera icterus. Extraocular movements grossly intact. Moist buccal mucosa. Head is atraumatic, normocephalic. Hears conversational speech. No nasal drainage. NECK: Supple without lymphadenopathy. CHEST: Non-labored respirations and equal bilateral excursions. CARDIOVASCULAR: Regular rate with regular rhythm. Palpable 2+ radial pulses. ABDOMEN: Soft. Nondistended. Dressing CDI. MARICHUY with serosanguineous drainage MUSCULOSKELETAL: No clubbing or cyanosis. NEUROLOGIC: No focal or lateralizing signs. Cranial nerves II through XII grossly intact. PSYCH: Appropriate affect. Alert and oriented. SKIN: Well perfused. Good skin turgor. ASSESSMENT: 1. Abdominal pain 2. Cholelithiasis, Possible choledocholithiasis 3. Pancreatitis 4. Hyperbilirubinemia 5. Transaminitis PLAN: Continue to monitor MARICHUY drainage Advance diet to renal diet Monitor hemoglobin Continue antibiotics per ID. Continue to monitor WBC. Nurse practitioner note has been reviewed by physician. Signing provider agrees with the documented findings, assessment, and plan of care. Objective - Vital Signs Vital signs: Vital Signs Temp 98.3 F 07/28/19 11:40 Pulse 96 07/28/19 12:39 Resp 20 07/28/19 11:40 BP 130/76 07/28/19 11:40 Pulse Ox 97 07/28/19 11:40 Intake & Output 07/27/19 07/28/19 07/28/19 18:59 06:59 18:59 Intake Total 430 120 50 Output Total 3200 805 805 Balance -2770 -685 -755 Weight 126.9 kg 177.5 kg 114 kg Intake: IV 50 Oral 120 120 Blood Product 310 Rc As-1 Unit 310 [id number] Output: Drainage 300 105 30 Right Abdomen 300 105 30 Urine 400 700 775 Hemodialysis 2500 Other: Voiding Method Indwelling Catheter Indwelling Catheter Indwelling Catheter # Bowel Movements 1 ABP, PAP, CO, CI - Last Documented Arterial Blood Pressure 96/53 - Labs CBC & Chem 7: 07/28/19 06:14 07/27/19 05:40 Labs: Abnormal Lab Results - Last 24 Hours (Table) 07/27/19 07/27/19 07/28/19 Range/Units 17:13 20:38 06:10 WBC (3.8-10.6) k/uL RBC (4.30-5.90) m/uL Hgb (13.0-17.5) gm/dL Hct (39.0-53.0) % RDW (11.5-15.5) % Plt Count (150-450) k/uL Neutrophils # (1.3-7.7) k/uL POC Glucose (mg/dL) 137 H 152 H 133 H (75-99) mg/dL Phosphorus (2.5-4.5) mg/dL 07/28/19 07/28/19 07/28/19 Range/Units 06:14 06:14 11:42 WBC 20.8 H (3.8-10.6) k/uL RBC 2.32 L (4.30-5.90) m/uL Hgb 7.2 L (13.0-17.5) gm/dL Hct 22.3 L (39.0-53.0) % RDW 15.8 H (11.5-15.5) % Plt Count 101 L (150-450) k/uL Neutrophils # 18.0 H (1.3-7.7) k/uL POC Glucose (mg/dL) 120 H (75-99) mg/dL Phosphorus 12.8 H* (2.5-4.5) mg/dL Microbiology - Last 24 Hours (Table) 07/23/19 10:17 Blood Culture - Preliminary Blood No Growth after 120 hours 07/23/19 10:40 Blood Culture - Preliminary Blood No Growth after 120 hours 07/23/19 10:17 Blood Culture Gram Stain - Final Blood Blood Culture - Final Coagulase Negative Staph <Chio Benavidez N - Last Filed: 07/29/19 11:31> Subjective As above, advance to soft renal diet. Continue MARICHUY drain for history of open cholecystectomy Objective - Vital Signs Vital signs: Vital Signs Temp 98.2 F 07/29/19 10:03 Pulse 121 H 07/29/19 10:03 Resp 20 07/29/19 10:03 BP 138/73 07/29/19 10:03 Pulse Ox 93 L 07/29/19 08:00 Intake & Output 07/28/19 07/29/19 07/29/19 18:59 06:59 18:59 Intake Total 50 118 Output Total 4135 95 3050 Balance -4438 -95 -2932 Weight 114 kg 114 kg Intake: IV 50 Oral 118 Output: Drainage 160 95 50 Right Abdomen 160 95 50 Urine 975 0 Hemodialysis 3000 3000 Other: Voiding Method Indwelling Catheter Indwelling Catheter Indwelling Catheter # Bowel Movements 1 ABP, PAP, CO, CI - Last Documented Arterial Blood Pressure 96/53 - Labs CBC & Chem 7: 07/29/19 05:30 07/29/19 07:57 Labs: Abnormal Lab Results - Last 24 Hours (Table) 07/28/19 07/28/19 07/28/19 Range/Units 11:42 16:37 20:24 WBC (3.8-10.6) k/uL RBC (4.30-5.90) m/uL Hgb (13.0-17.5) gm/dL Hct (39.0-53.0) % Plt Count (150-450) k/uL Neutrophils # (1.3-7.7) k/uL Sodium (137-145) mmol/L Chloride (98-107) mmol/L BUN (9-20) mg/dL Creatinine (0.66-1.25) mg/dL Glucose (74-99) mg/dL POC Glucose (mg/dL) 120 H 142 H 174 H (75-99) mg/dL Calcium (8.4-10.2) mg/dL 07/29/19 07/29/19 07/29/19 Range/Units 05:30 06:26 07:57 WBC 17.9 H (3.8-10.6) k/uL RBC 2.29 L (4.30-5.90) m/uL Hgb 7.2 L (13.0-17.5) gm/dL Hct 22.1 L (39.0-53.0) % Plt Count 121 L (150-450) k/uL Neutrophils # 15.3 H (1.3-7.7) k/uL Sodium 133 L (137-145) mmol/L Chloride 93 L (98-107) mmol/L BUN 100 H (9-20) mg/dL Creatinine 6.39 H (0.66-1.25) mg/dL Glucose 177 H (74-99) mg/dL POC Glucose (mg/dL) 155 H (75-99) mg/dL Calcium 8.2 L (8.4-10.2) mg/dL Microbiology - Last 24 Hours (Table) 07/23/19 10:17 Blood Culture - Preliminary Blood No Growth after 120 hours 07/23/19 10:40 Blood Culture - Preliminary Blood No Growth after 120 hours 07/23/19 10:17 Blood Culture Gram Stain - Final Blood Blood Culture - Final Coagulase Negative Staph
[2019-07-28 16:39] LABS: Glucose,Whole Blood 142 mg/dL (75-99)
--- NOTE | 2019-07-28 16:41 | P.PN ---
Subjective Progress Note Date: 07/28/19 Patient is receiving dialysis now. He is much more alert and awake, interactive, speaking in sentences. Offers no complaints. Objective - Vital Signs Vital signs: Vital Signs Temp 98.6 F 07/28/19 15:08 Pulse 122 H 07/28/19 16:31 Resp 20 07/28/19 16:19 BP 121/68 07/28/19 15:08 Pulse Ox 96 07/28/19 16:19 Intake & Output 07/27/19 07/28/19 07/28/19 18:59 06:59 18:59 Intake Total 430 120 50 Output Total 3200 805 4005 Balance -0615 -255 -3375 Weight 126.9 kg 177.5 kg 114 kg Intake: IV 50 Oral 120 120 Blood Product 310 Rc As-1 Unit 310 [id number] Output: Drainage 300 105 30 Right Abdomen 300 105 30 Urine 400 700 975 Hemodialysis 2500 3000 Other: Voiding Method Indwelling Catheter Indwelling Catheter Indwelling Catheter # Bowel Movements 1 ABP, PAP, CO, CI - Last Documented Arterial Blood Pressure 96/53 - Exam Patient is much more alert and awake. His speech has improved. Patient's biceps are 4+, transportation security officer is 4-, triceps 4+ bilaterally. Patient able to lift his legs off the bed and give some resistance. Ankle dorsiflexion appears at least 4+ to 5-bilaterally. This is much improved as compared to examination as of yesterday. Patient's neck is supple. No stiffness. - Labs CBC & Chem 7: 07/28/19 06:14 07/27/19 05:40 Labs: Abnormal Lab Results - Last 24 Hours (Table) 07/27/19 07/27/19 07/28/19 Range/Units 17:13 20:38 06:10 WBC (3.8-10.6) k/uL RBC (4.30-5.90) m/uL Hgb (13.0-17.5) gm/dL Hct (39.0-53.0) % RDW (11.5-15.5) % Plt Count (150-450) k/uL Neutrophils # (1.3-7.7) k/uL POC Glucose (mg/dL) 137 H 152 H 133 H (75-99) mg/dL Phosphorus (2.5-4.5) mg/dL 07/28/19 07/28/19 07/28/19 Range/Units 06:14 06:14 11:42 WBC 20.8 H (3.8-10.6) k/uL RBC 2.32 L (4.30-5.90) m/uL Hgb 7.2 L (13.0-17.5) gm/dL Hct 22.3 L (39.0-53.0) % RDW 15.8 H (11.5-15.5) % Plt Count 101 L (150-450) k/uL Neutrophils # 18.0 H (1.3-7.7) k/uL POC Glucose (mg/dL) 120 H (75-99) mg/dL Phosphorus 12.8 H* (2.5-4.5) mg/dL Microbiology - Last 24 Hours (Table) 07/23/19 10:17 Blood Culture - Preliminary Blood No Growth after 120 hours 07/23/19 10:40 Blood Culture - Preliminary Blood No Growth after 120 hours 07/23/19 10:17 Blood Culture Gram Stain - Final Blood Blood Culture - Final Coagulase Negative Staph Assessment and Plan Assessment: * Altered mental status, likely related to toxic metabolic encephalopathy. * Generalized weakness, with hyporeflexia. Likely due to deconditioning from critical illness. Patient's strength remarkably improving. * Acute kidney injury with acute renal failure, requiring dialysis. * Acute gallstones pancreatitis * Acute cholecystitis, status post open cholecystectomy * Elevated liver enzymes * Significant anemia * Leukocytosis, possible due to sepsis Plan: * Patient's mentation has much improved. * Patient's generalized weakness apparently has much improved as compared to yesterday, and is rapidly improving. 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 * B12 1514, folate 8.3, TSH 5.3 mildly elevated, free T4 0.73, mildly decreased, hemoglobin A1c 5.1, serum protein electrophoresis negative for any monoclonal gammopathy and ammonia level normal 12. * Your medical management. * Neurologically clear for transfer to inpatient rehab.
[2019-07-28 20:25] LABS: Glucose,Whole Blood 174 mg/dL (75-99)
--- NOTE | 2019-07-28 22:11 | PN ---
PROGRESS NOTE DATE OF SERVICE: 07/28/2019 REASON FOR FOLLOWUP: Leukocytosis, pancreatic pseudocyst. INTERVAL HISTORY: The patient is currently afebrile. The patient has been breathing comfortably. The patient is more awake and alert. Denies having any chest pain or shortness of breath. Occasional cough. No nausea, no vomiting. No abdominal pain or diarrhea. PHYSICAL EXAMINATION: Blood pressure 126/74 with a pulse of 96, temperature of 98.6. He is 95% on 2 L nasal cannula. General description is a middle-aged male lying in bed in no distress. RESPIRATORY SYSTEM: Unlabored breathing with decreased breath sounds at the base. No wheeze. HEART: S1, S2. Regular rate and rhythm. ABDOMEN: Soft. No tenderness. LABS: Hemoglobin 7.2 with a white count of 20,000. DIAGNOSTIC IMPRESSION AND PLAN: Patient with leukocytosis which is likely multifactorial in this patient who did have a component of pancreatic pseudocyst, admitted to hospital with gallstone pancreatitis, status post open cholecystectomy. Patient is currently covered with cefepime and vancomycin; to continue, with the white count showing a downward trend and the fever has resolved. Will monitor his clinical course closely. Continue with supportive care. MMODL / IJN: [id number] /
[2019-07-29] MEDS: HEPARIN SODIUM,PORCINE 5,000 UNIT/ML 1 ML VIAL SQ SCH ×3 (00:26→17:48)
[2019-07-29] MEDS: metroNIDAZOLE 500 MG TAB PO SCH ×3 (00:26→17:48)
[2019-07-29] MEDS: HYDROmorphone 2 MG/ML 1 ML SYRINGE IVP PRN ×6 (02:28→21:05)
[2019-07-29] MEDS: CEFEPIME 1 GM in SODIUM CHLORIDE 0.9% 50 ML IVPB SCH (02:29)
[2019-07-29 06:17] LABS: Basophils # (A) 0.1 k/uL (0-0.2); Basophils % (A) 1 %; Eosinophils # (A) 0.2 k/uL (0-0.7); Eosinophils % (A) 1 %; HCT 22.1 % (39.0-53.0); HGB 7.2 gm/dL (13.0-17.5); Hypochromasia Slight; Lymphocytes # (A) 1.1 k/uL (1.0-4.8); Lymphocytes % (A) 6 %; MCH 31.5 pg (25.0-35.0); MCHC 32.6 g/dL (31.0-37.0); MCV 96.5 fL (80.0-100.0); Monocytes # (A) 0.9 k/uL (0-1.0); Monocytes % (A) 5 %; Neutrophils # (A) 15.3 k/uL (1.3-7.7); Neutrophils % (A) 85 %; Platelet Count 121 k/uL (150-450); RBC 2.29 m/uL (4.30-5.90); RDW 15.2 % (11.5-15.5); WBC 17.9 k/uL (3.8-10.6)
[2019-07-29 06:27] LABS: Glucose,Whole Blood 155 mg/dL (75-99)
[2019-07-29] MEDS: CALCIUM ACETATE 667 MG TAB PO SCH ×3 (06:34→17:47)
[2019-07-29] MEDS: PANTOPRAZOLE 40 MG TABLET PO SCH (06:34)
[2019-07-29] MEDS: SEVELAMER 800 MG TAB PO SCH ×3 (06:34→17:47)
[2019-07-29] MEDS: INSULIN ASPART (NovoLOG) 100 UNIT/ML VIAL SQ SCH ×4 (06:34→20:59)
[2019-07-29 09:11] LABS: Calcium 8.2 mg/dL (8.4-10.2); Potassium 5.1 mmol/L (3.5-5.1)
[2019-07-29] MEDS: IPRATROPIUM-ALBUTEROL 3 ML NEB INHALATION SCH ×4 (09:15→20:27)
--- NOTE | 2019-07-29 09:36 | P.PN ---
Subjective Patient is seen in follow-up for acute kidney injury, currently hemodialysis dependent. Urine output 975 mL in the last 24 hours. Edema improved. Currently awake and alert. Denies chest pain or shortness of breath. Vital signs are stable. General: The patient appeared well nourished and normally developed. Intubated. HEENT: Head exam is unremarkable. Neck is without jugular venous distension. LUNGS: Lungs are clear to auscultation and percussion. Breath sounds decreased. HEART: Rate and Rhythm are regular. First and second heart sounds normal. No murmurs, rubs or gallops. ABDOMEN: Bowel sounds decreased. EXTREMITITES: 1+ edema. Objective - Vital Signs Vital signs: Vital Signs Temp 98 F 07/29/19 08:00 Pulse 115 H 07/29/19 09:27 Resp 18 07/29/19 08:00 BP 108/79 07/29/19 08:00 Pulse Ox 93 L 07/29/19 08:00 Intake & Output 07/28/19 07/29/19 07/29/19 18:59 06:59 18:59 Intake Total 50 118 Output Total 4135 95 Balance -4085 -95 118 Weight 114 kg 114 kg Intake: IV 50 Oral 118 Output: Drainage 160 95 Right Abdomen 160 95 Urine 975 0 Hemodialysis 3000 Other: Voiding Method Indwelling Catheter Indwelling Catheter # Bowel Movements 1 ABP, PAP, CO, CI - Last Documented Arterial Blood Pressure 96/53 - Labs CBC & Chem 7: 07/29/19 05:30 07/29/19 07:57 Labs: Abnormal Lab Results - Last 24 Hours (Table) 07/28/19 07/28/19 07/28/19 Range/Units 11:42 16:37 20:24 WBC (3.8-10.6) k/uL RBC (4.30-5.90) m/uL Hgb (13.0-17.5) gm/dL Hct (39.0-53.0) % Plt Count (150-450) k/uL Neutrophils # (1.3-7.7) k/uL Sodium (137-145) mmol/L Chloride (98-107) mmol/L BUN (9-20) mg/dL Creatinine (0.66-1.25) mg/dL Glucose (74-99) mg/dL POC Glucose (mg/dL) 120 H 142 H 174 H (75-99) mg/dL Calcium (8.4-10.2) mg/dL 07/29/19 07/29/19 07/29/19 Range/Units 05:30 06:26 07:57 WBC 17.9 H (3.8-10.6) k/uL RBC 2.29 L (4.30-5.90) m/uL Hgb 7.2 L (13.0-17.5) gm/dL Hct 22.1 L (39.0-53.0) % Plt Count 121 L (150-450) k/uL Neutrophils # 15.3 H (1.3-7.7) k/uL Sodium 133 L (137-145) mmol/L Chloride 93 L (98-107) mmol/L BUN 100 H (9-20) mg/dL Creatinine 6.39 H (0.66-1.25) mg/dL Glucose 177 H (74-99) mg/dL POC Glucose (mg/dL) 155 H (75-99) mg/dL Calcium 8.2 L (8.4-10.2) mg/dL Microbiology - Last 24 Hours (Table) 07/23/19 10:17 Blood Culture - Preliminary Blood No Growth after 120 hours 07/23/19 10:40 Blood Culture - Preliminary Blood No Growth after 120 hours 07/23/19 10:17 Blood Culture Gram Stain - Final Blood Blood Culture - Final Coagulase Negative Staph Assessment and Plan Plan: Assessment: 1. Acute kidney injury secondary to ATN secondary to septic shock, currently hemodialysis dependent. Started on hemodialysis July 15. Baseline creatinine is near 1 and peaked at greater than 8 this admission. Nonoliguric. 2. Volume overload. Partially due to third spacing due to hypoalbuminemia. Improving with UF. 3. Severe acute pancreatitis. ERCP was attempted earlier this admission. Status post open cholecystectomy on July 17. 4. Hyperphosphatemia secondary to acute kidney injury maintained on PhosLo and Renvela. 5. Ileus, s/p TPN. 6. Metabolic acidosis secondary to acute kidney injury. Improved with dialysi s. 7. Hyperkalemia secondary to acute kidney injury and metabolic acidosis. Stable. 8. Hypervolemic hyponatremia. 9. Status post permacath placement July 28. Plan: Currently seen while undergoing hemodialysis. Next treatment on Wednesday. Avoid nephrotoxins. Continue to monitor renal function and urine output. presentation manager following to set up outpatient hemodialysis.
--- NOTE | 2019-07-29 09:44 | P.PN ---
Subjective covering Dr. Lopez starting 07/24/2019 This is a pleasant 54-year-old Patient of Dr. Malloy. with past medical history of hypertension and hearing difficulty. Presents with upper abdominal epigastric pain found to have acute pancreatitis secondary to acute cholecystitis with choledocholithiasis. He is status post cholecystectomy on and 07/17. Also patientwas in acute kidney injury and renal failure and eventually needed hemodialysis which is undergoing currently and acute hypoxic respiratory failure status post temporal intubation and extubation. Sepsis is also suspected that's why patient was started on antibiotics and currently is on cefepime and Flagyl. patient remains in the ICU and confused although at times he can wake up and talk with some sentences. However when I saw the patient he was still confused and currently waking up for verbal and tactile stimuli.vitals showing tachycardia with heart rate 114-120. he is saturating 93% on 3 L oxygen.Blood pressure 105/59.patient labs showed leukocytosis of 30 2.9K. Hemoglobin stable at 7.3.liver enzymes are slightly elevated. 07/25/2019 Patient mentation is partially improved, the open eyes spontaneously, he follows commands, he answers some questions appropriately, he knows where he is "I am at [facility]" . Patient pulled out his NG tube today, he has no appetite, no abdominal pain or tenderness however patient is poor historian.patient is still febrile 99.9 today and tachycardic 122 and tachypneic 31. He is saturating 93% on room air.he still have significant leukocytosis of 30 1.5K, hemoglobin is 7.0.sugar is controlled and divided enzymes mildly elevated.MARICHUY drain is in place. Patients will need a CAT scan of the abdomen and pelvis with oral contrast to rule out abscess, recommended by ID team currently patient is on Flagyl, cefepime and IV vancomycin. 07/26/2019 Patient confusion is improving gradually, his lethargic with generalized weakness. NG tube is in place. Bedside nurse planning to do a bedside swallow evaluation. He can resume his diet if he passes. Infectious disease consult her current CAT scan of the abdomen which showed pseudocyst however surgical think no need for any surgical intervention other than conservative management and keep monitoring. he still somewhat tachycardic and tachypneic. Leukocytosis improving down to 20 7K, hemoglobin stable at 7.0, platelets 152k. Patient currently on cefepime, Flagyl however her vancomycin was discontinued. Medial drain has been added. 07/27/2019 Patient is seen today and the general floor and select. He is confused and lethargic he opens eyes to verbal stimuli but go back to sleep right away. Was getting hemodialysis and patient could not provide information. His blood pressure 133/82, heart rate 100-114. Hemoglobin today 6.4. Patient is 11 to get 1 unit of blood transfusion. Chest x-ray: Stable bibasilar infiltrates. Patient is on cefepime and Flagyl and they got vancomycin dose before. NG tube were stopped and patient was started on liquids diet. Neurologist evaluation is appreciated, most likely patient has metabolic toxic encephalopathy with suspicion of critical illness polyneuropathy he would need prolonged rehabilitation on discharge as well as EMG and nerve conduction studies of the upper lower extremity 07/28/2019 Patient mental status is improving, is more awake and alert and can show understanding. She was updated about his medical problems. He remains on antibiotics for sepsis, source unknown, catheter removed and tip sent to the l ab. Vascular surgery placed and dialysis catheter for him today. Continue with hemodialysis as per manager talent acquisition. Vitals are stable. Continue with antibiotics and his WBC is coming down to 20.8 K today. 07/29/2019 Patient is awake and alert. His movements and his extremity is improving gradually especially in the upper extremity. He has dialysis catheter in the right upper chest and patient is getting hemodialysis today. About 3 L of fluid will be taken off. His blood pressure 108/79. Coming down to 17.9 K, sodium 133. Catheter tip culture came back negative. Patient remains on antibiotics Objective - Vital Signs Vital signs: Vital Signs Temp 98 F 07/29/19 08:00 Pulse 115 H 07/29/19 09:27 Resp 18 07/29/19 08:00 BP 108/79 07/29/19 08:00 Pulse Ox 93 L 07/29/19 08:00 Intake & Output 07/28/19 07/29/19 07/29/19 18:59 06:59 18:59 Intake Total 50 118 Output Total 4135 95 Balance -4085 -95 118 Weight 114 kg 114 kg Intake: IV 50 Oral 118 Output: Drainage 160 95 Right Abdomen 160 95 Urine 975 0 Hemodialysis 3000 Other: Voiding Method Indwelling Catheter Indwelling Catheter # Bowel Movements 1 ABP, PAP, CO, CI - Last Documented Arterial Blood Pressure 96/53 - Exam -GENERAL: The patient is more awake today however he still confused. HEENT: Pupils are round and equally reacting to light. EOMI. No scleral icterus. No conjunctival pallor. Normocephalic, atraumatic. No pharyngeal erythema. No thyromegaly. CARDIOVASCULAR: S1 and S2 present. No murmurs, rubs, or gallops. PULMONARY: Chest is clear to auscultation, no wheezing or crackles. -ABDOMEN: Soft, nontender, nondistended, normoactive bowel sounds. No palpable organomegaly. right surgical wound is closed with dressing is in place. MARICHUY drain is in place with serosanguineous drainage. Left femoral catheter. MUSCULOSKELETAL: No joint swelling or deformity. EXTREMITIES: No cyanosis, clubbing, or pedal edema. NEUROLOGICAL: Gross neurological examination did not reveal any focal deficits. SKIN: No rashes. no petechiae. - Labs CBC & Chem 7: 07/29/19 05:30 07/29/19 07:57 Labs: Abnormal Lab Results - Last 24 Hours (Table) 07/28/19 07/28/19 07/28/19 Range/Units 11:42 16:37 20:24 WBC (3.8-10.6) k/uL RBC (4.30-5.90) m/uL Hgb (13.0-17.5) gm/dL Hct (39.0-53.0) % Plt Count (150-450) k/uL Neutrophils # (1.3-7.7) k/uL Sodium (137-145) mmol/L Chloride (98-107) mmol/L BUN (9-20) mg/dL Creatinine (0.66-1.25) mg/dL Glucose (74-99) mg/dL POC Glucose (mg/dL) 120 H 142 H 174 H (75-99) mg/dL Calcium (8.4-10.2) mg/dL 07/29/19 07/29/19 07/29/19 Range/Units 05:30 06:26 07:57 WBC 17.9 H (3.8-10.6) k/uL RBC 2.29 L (4.30-5.90) m/uL Hgb 7.2 L (13.0-17.5) gm/dL Hct 22.1 L (39.0-53.0) % Plt Count 121 L (150-450) k/uL Neutrophils # 15.3 H (1.3-7.7) k/uL Sodium 133 L (137-145) mmol/L Chloride 93 L (98-107) mmol/L BUN 100 H (9-20) mg/dL Creatinine 6.39 H (0.66-1.25) mg/dL Glucose 177 H (74-99) mg/dL POC Glucose (mg/dL) 155 H (75-99) mg/dL Calcium 8.2 L (8.4-10.2) mg/dL Microbiology - Last 24 Hours (Table) 07/23/19 10:17 Blood Culture - Preliminary Blood No Growth after 120 hours 07/23/19 10:40 Blood Culture - Preliminary Blood No Growth after 120 hours 07/23/19 10:17 Blood Culture Gram Stain - Final Blood Blood Culture - Final Coagulase Negative Staph Assessment and Plan Assessment: gallstone pancreatitis with acute cholecystitis and choledocholithiasis. Status post cholecystectomy Possible sepsis secondary to above Acute hypoxic respiratory failure Pancreatic pseudocyst Acute kidney injury needing hemodialysis Hypertension history of hearing difficulty Plan: this is a pleasant 54 years old male who presents with gallstone pancreatitis status post cholecystectomy. Continue with antibiotics with cefepime and Flagyl .follow-up recommendation by infectious disease. Follow-up recommendation by other consultants including manager talent acquisition, surgical service and critical care team. Labs and medication were reviewed.. Continue same treatment. Continue with symptomatic treatment. Resume home medication. Monitor lytes and vitals. DVT and GI prophylaxis. Further recommendations of the clinical course of the patient DVT prophylaxis: Subcutaneous heparin GI Prophylaxis: Protonix Prognosis is guarded
[2019-07-29 11:56] LABS: Glucose,Whole Blood 181 mg/dL (75-99)
--- NOTE | 2019-07-29 14:03 | P.PN ---
Subjective Progress Note Date: 07/29/19 CHIEF COMPLAINT: Acute gallstone pancreatitis HISTORY OF PRESENT ILLNESS: The patient is a 54-year-old male presented with sepsis including acute gallstone pancreatitis. He is status post open cholecy stectomy including multiple organ failure, now resolving. For his acute kidney failure, he is currently on dialysis. Family is at bedside wanting to bring outside food. He is tolerating soft diet. He had dialysis yesterday. No reports of abdominal pain. ROS: No reports of nausea and vomiting. No fevers or chills. No new chest pain. PHYSICAL EXAM: VITAL SIGNS: Reviewed CONSTITUTIONAL: Well developed and in no acute distress. EYES: Conjuctivae without sclera icterus. Extraocular movements grossly intact. HEAD, EARS, NOSE, THROAT: Moist buccal mucosa. Head is atraumatic, normocephalic. Hears conversational speech. No nasal drainage. NECK: Supple. No thyroidomegaly. RESPIRATORY: Non-labored respirations and equal bilateral excursions. CARDIOVASCULAR: Palpable 2+ radial pulses. Port a cath along right chest wall without cellulitis. ABDOMEN: Soft. No peritonitis. Chicho-Keller drain serosanguineous MUSCULOSKELETAL: No gross deformity of the lower extremities noted. No clubb ing. No cyanosis. SKIN: Good skin turgor. Well perfused. NEUROLOGIC: Cranial nerves I through XII grossly intact. No focal or lateralizing signs. PSYCH: Appropriate affect. Alert and oriented to person, place and time. CLINICAL LABS: White blood cell count persistently elevated down from 20,000- 17,000. ASSESSMENT: 1. Sepsis from gallstone pancreatitis 2. Acute kidney failure now on dialysis 3. Acute symptomatic gallstones status post open cholecystectomy PLAN: 1. Continue MARCIHUY drain. 2. Dialysis per nephrology management 3. Evaluation for rehab advised Objective - Vital Signs Vital signs: Vital Signs Temp 98.2 F 07/29/19 10:03 Pulse 121 H 07/29/19 10:03 Resp 20 07/29/19 10:03 BP 138/73 07/29/19 10:03 Pulse Ox 93 L 07/29/19 08:00 Intake & Output 07/28/19 07/29/19 07/29/19 18:59 06:59 18:59 Intake Total 50 118 Output Total 3391 10 7513 Balance -5724 -62 -1145 Weight 114 kg 114 kg Intake: IV 50 Oral 118 Output: Drainage 160 95 50 Right Abdomen 160 95 50 Urine 975 0 Hemodialysis 3000 3000 Other: Voiding Method Indwelling Catheter Indwelling Catheter Indwelling Catheter # Bowel Movements 1 ABP, PAP, CO, CI - Last Documented Arterial Blood Pressure 96/53 - Labs CBC & Chem 7: 07/29/19 05:30 07/29/19 07:57 Labs: Abnormal Lab Results - Last 24 Hours (Table) 07/28/19 07/28/19 07/28/19 Range/Units 11:42 16:37 20:24 WBC (3.8-10.6) k/uL RBC (4.30-5.90) m/uL Hgb (13.0-17.5) gm/dL Hct (39.0-53.0) % Plt Count (150-450) k/uL Neutrophils # (1.3-7.7) k/uL Sodium (137-145) mmol/L Chloride (98-107) mmol/L BUN (9-20) mg/dL Creatinine (0.66-1.25) mg/dL Glucose (74-99) mg/dL POC Glucose (mg/dL) 120 H 142 H 174 H (75-99) mg/dL Calcium (8.4-10.2) mg/dL 07/29/19 07/29/19 07/29/19 Range/Units 05:30 06:26 07:57 WBC 17.9 H (3.8-10.6) k/uL RBC 2.29 L (4.30-5.90) m/uL Hgb 7.2 L (13.0-17.5) gm/dL Hct 22.1 L (39.0-53.0) % Plt Count 121 L (150-450) k/uL Neutrophils # 15.3 H (1.3-7.7) k/uL Sodium 133 L (137-145) mmol/L Chloride 93 L (98-107) mmol/L BUN 100 H (9-20) mg/dL Creatinine 6.39 H (0.66-1.25) mg/dL Glucose 177 H (74-99) mg/dL POC Glucose (mg/dL) 155 H (75-99) mg/dL Calcium 8.2 L (8.4-10.2) mg/dL Microbiology - Last 24 Hours (Table) 07/23/19 10:17 Blood Culture - Preliminary Blood No Growth after 120 hours 07/23/19 10:40 Blood Culture - Preliminary Blood No Growth after 120 hours 07/23/19 10:17 Blood Culture Gram Stain - Final Blood Blood Culture - Final Coagulase Negative Staph Assessment and Plan (1) Acute gallstone pancreatitis Current Visit: Yes Status: Acute Code(s): K85.10 - BILIARY ACUTE PANCREATITIS WITHOUT NECROSIS OR INFECTION SNOMED Code(s): 450821472 (2) Sepsis Current Visit: Yes Status: Acute Code(s): A41.9 - SEPSIS, UNSPECIFIED ORGANISM SNOMED Code(s): 55139735 (3) Acute cholecystitis due to biliary calculus Current Visit: Yes Status: Acute Code(s): K80.00 - CALCULUS OF GALLBLADDER W ACUTE CHOLECYST W/O OBSTRUCTION SNOMED Code(s): 42734924109196 (4) Acute renal failure on dialysis Current Visit: Yes Status: Acute Code(s): N17.9 - ACUTE KIDNEY FAILURE, UNSPECIFIED; Z99.2 - DEPENDENCE ON RENAL DIALYSIS SNOMED Code(s): 571232098565875
[2019-07-29 17:18] LABS: Glucose,Whole Blood 133 mg/dL (75-99)
--- NOTE | 2019-07-29 17:33 | PN ---
PROGRESS NOTE DATE OF SERVICE: 07/29/2019. REASON FOR FOLLOW UP: Leukocytosis with pancreatic pseudocyst. INTERVAL HISTORY: The patient is currently afebrile. Patient has been breathing comfortably. The patient denies having any chest pain or cough. Complains of some heartburn, but no nausea, vomiting, or any worsening diarrhea. PHYSICAL EXAMINATION: Blood pressure 126/79 with a pulse of 111, temperature 98.8. He is 95% on 2 L nasal cannula. General description is a middle-aged male lying in bed in no distress. Respiratory system: Unlabored breathing, decreased breath sounds in the base, with no wheeze. Heart S1, S2. Regular rate and rhythm. Abdomen soft. No tenderness. LABS: Hemoglobin 7.8, white count 17.9, Creatinine 6.39. Culture repeat has been negative so far. DIAGNOSTIC IMPRESSION AND PLAN: Patient with leukocytosis which is likely multifactorial in this patient with likely pancreatic pseudocyst less likely infectious. The patient white count is down to 17,000, has not running any fever. Currently covered with cefepime and vancomycin. Continue to monitor his clinical course closely. MMODL / IJN: [id number] / MTDD
[2019-07-29] MEDS: DARBEPOETIN ALFA 25 MCG/0.42 ML SYRINGE SQ SCH (17:48)
[2019-07-29 20:33] LABS: Glucose,Whole Blood 146 mg/dL (75-99)
[2019-07-30] MEDS: HEPARIN SODIUM,PORCINE 5,000 UNIT/ML 1 ML VIAL SQ SCH ×3 (00:41→17:08)
[2019-07-30] MEDS: metroNIDAZOLE 500 MG TAB PO SCH ×3 (00:41→16:56)
[2019-07-30] MEDS: HYDROmorphone 2 MG/ML 1 ML SYRINGE IVP PRN ×6 (02:33→22:24)
[2019-07-30] MEDS: CEFEPIME 1 GM in SODIUM CHLORIDE 0.9% 50 ML IVPB SCH (02:34)
[2019-07-30 06:20] LABS: Glucose,Whole Blood 128 mg/dL (75-99)
[2019-07-30] MEDS: SEVELAMER 800 MG TAB PO SCH ×3 (06:55→17:02)
[2019-07-30] MEDS: INSULIN ASPART (NovoLOG) 100 UNIT/ML VIAL SQ SCH ×4 (06:55→21:05)
[2019-07-30] MEDS: PANTOPRAZOLE 40 MG TABLET PO SCH (06:55)
[2019-07-30] MEDS: CALCIUM ACETATE 667 MG TAB PO SCH ×3 (06:55→17:02)
[2019-07-30 07:14] LABS: Basophils # (A) 0.1 k/uL (0-0.2); Basophils % (A) 1 %; Eosinophils # (A) 0.3 k/uL (0-0.7); Eosinophils % (A) 2 %; HCT 23.6 % (39.0-53.0); HGB 7.5 gm/dL (13.0-17.5); Hypochromasia Moderate; Lymphocytes # (A) 0.9 k/uL (1.0-4.8); Lymphocytes % (A) 6 %; MCH 31.5 pg (25.0-35.0); MCV 98.3 fL (80.0-100.0); Mean Platelet Volume 9.1; Monocytes # (A) 0.9 k/uL (0-1.0); Monocytes % (A) 6 %; Neutrophils % (A) 85 %; Platelet Count 143 k/uL (150-450); RBC 2.39 m/uL (4.30-5.90); RDW 14.5 % (11.5-15.5); WBC 15.2 k/uL (3.8-10.6)
[2019-07-30 07:33] LABS: Calcium 8.2 mg/dL (8.4-10.2); Potassium 4.9 mmol/L (3.5-5.1)
[2019-07-30 07:38] LABS: Vancomycin,Random 18.2 ug/mL
[2019-07-30] MEDS: IPRATROPIUM-ALBUTEROL 3 ML NEB INHALATION SCH ×4 (07:39→21:32)
[2019-07-30] MEDS ORDERED: VANCOMYCIN 1,750 MG in SODIUM CHLORIDE 0.9% 500 ML 500 ML IVPB ONE (10:00)
--- NOTE | 2019-07-30 10:29 | P.PN ---
Subjective Patient is seen in follow-up for acute kidney injury, currently hemodialysis dependent. Urine output documented is only 100 mL in the last 24 hours. Not sure if this is accurate. Edema improved. Currently awake and alert. Denies chest pain or shortness of breath. Tolerated hemodialysis well yesterday with 3 L ultrafiltration. Vital signs are stable. General: The patient appeared well nourished and normally developed. Intubated. HEENT: Head exam is unremarkable. Neck is without jugular venous distension. LUNGS: Lungs are clear to auscultation and percussion. Breath sounds decreased. HEART: Rate and Rhythm are regular. First and second heart sounds normal. No murmurs, rubs or gallops. ABDOMEN: Bowel sounds decreased. EXTREMITITES: 1+ edema. Objective - Vital Signs Vital signs: Vital Signs Temp 98.6 F 07/30/19 07:46 Pulse 110 H 07/30/19 07:53 Resp 18 07/30/19 07:46 BP 129/73 07/30/19 07:46 Pulse Ox 98 07/30/19 07:46 Intake & Output 07/29/19 07/30/19 07/30/19 18:59 06:59 18:59 Intake Total 236 200 Output Total 3090 190 100 Balance -2854 10 -100 Intake: Oral 236 200 Output: Drainage 90 90 100 Right Abdomen 90 90 100 Urine 100 Hemodialysis 3000 Other: Voiding Method Indwelling Catheter Indwelling Catheter ABP, PAP, CO, CI - Last Documented Arterial Blood Pressure 96/53 - Labs CBC & Chem 7: 07/30/19 06:02 07/30/19 06:02 Labs: Abnormal Lab Results - Last 24 Hours (Table) 07/29/19 07/29/19 07/29/19 Range/Units 11:46 17:08 20:28 WBC (3.8-10.6) k/uL RBC (4.30-5.90) m/uL Hgb (13.0-17.5) gm/dL Hct (39.0-53.0) % Plt Count (150-450) k/uL Neutrophils # (1.3-7.7) k/uL Lymphocytes # (1.0-4.8) k/uL Sodium (137-145) mmol/L Chloride (98-107) mmol/L BUN (9-20) mg/dL Creatinine (0.66-1.25) mg/dL Glucose (74-99) mg/dL POC Glucose (mg/dL) 181 H 133 H 146 H (75-99) mg/dL Calcium (8.4-10.2) mg/dL 07/30/19 07/30/19 07/30/19 Range/Units 06:02 06:02 06:09 WBC 15.2 H (3.8-10.6) k/uL RBC 2.39 L (4.30-5.90) m/uL Hgb 7.5 L (13.0-17.5) gm/dL Hct 23.6 L (39.0-53.0) % Plt Count 143 L (150-450) k/uL Neutrophils # 13.0 H (1.3-7.7) k/uL Lymphocytes # 0.9 L (1.0-4.8) k/uL Sodium 133 L (137-145) mmol/L Chloride 96 L (98-107) mmol/L BUN 84 H (9-20) mg/dL Creatinine 5.15 H (0.66-1.25) mg/dL Glucose 108 H (74-99) mg/dL POC Glucose (mg/dL) 128 H (75-99) mg/dL Calcium 8.2 L (8.4-10.2) mg/dL Microbiology - Last 24 Hours (Table) 07/23/19 10:17 Blood Culture - Final Blood No Growth after 144 hours 07/23/19 10:40 Blood Culture - Final Blood No Growth after 144 hours Assessment and Plan Plan: Assessment: 1. Acute kidney injury secondary to ATN secondary to septic shock, currently hemodialysis dependent. Started on hemodialysis July 15. Baseline creatinine is near 1 and peaked at greater than 8 this admission. Nonoliguric. 2. Volume overload. Partially due to third spacing due to hypoalbuminemia. Improving with UF. 3. Severe acute pancreatitis. ERCP was attempted earlier this admission. Status post open cholecystectomy on July 17. 4. Hyperphosphatemia secondary to acute kidney injury maintained on PhosLo and Renvela. 5. Ileus, s/p TPN. 6. Metabolic acidosis secondary to acute kidney injury. Improved with dialysis. 7. Hyperkalemia secondary to acute kidney injury and metabolic acidosis. Sta ble. 8. Hypervolemic hyponatremia. Stable. 9. Status post permacath placement July 28. Plan: Hemodialysis tomorrow. Avoid nephrotoxins. Continue to monitor renal function and urine output. pbx manager following to set up outpatient hemodialysis. Will monitor for renal recovery outpatient.
--- NOTE | 2019-07-30 11:04 | P.PN ---
Subjective covering Dr. Lopez starting 07/24/2019 This is a pleasant 54-year-old Patient of Dr. Malloy. with past medical history of hypertension and hearing difficulty. Presents with upper abdominal epigastric pain found to have acute pancreatitis secondary to acute cholecystitis with choledocholithiasis. He is status post cholecystectomy on and 07/17. Also patientwas in acute kidney injury and renal failure and eventually needed hemodialysis which is undergoing currently and acute hypoxic respiratory failure status post temporal intubation and extubation. Sepsis is also suspected that's why patient was started on antibiotics and currently is on cefepime and Flagyl. patient remains in the ICU and confused although at times he can wake up and talk with some sentences. However when I saw the patient he was still confused and currently waking up for verbal and tactile stimuli.vitals showing tachycardia with heart rate 114-120. he is saturating 93% on 3 L oxygen.Blood pressure 105/59.patient labs showed leukocytosis of 30 2.9K. Hemoglobin stable at 7.3.liver enzymes are slightly elevated. 07/25/2019 Patient mentation is partially improved, the open eyes spontaneously, he follows commands, he answers some questions appropriately, he knows where he is "I am at [facility]" . Patient pulled out his NG tube today, he has no appetite, no abdominal pain or tenderness however patient is poor historian.patient is still febrile 99.9 today and tachycardic 122 and tachypneic 31. He is saturating 93% on room air.he still have significant leukocytosis of 30 1.5K, hemoglobin is 7.0.sugar is controlled and divided enzymes mildly elevated.MARICHUY drain is in place. Patients will need a CAT scan of the abdomen and pelvis with oral contrast to rule out abscess, recommended by ID team currently patient is on Flagyl, cefepime and IV vancomycin. 07/26/2019 Patient confusion is improving gradually, his lethargic with generalized weakness. NG tube is in place. Bedside nurse planning to do a bedside swallow evaluation. He can resume his diet if he passes. Infectious disease consult her current CAT scan of the abdomen which showed pseudocyst however surgical think no need for any surgical intervention other than conservative management and keep monitoring. he still somewhat tachycardic and tachypneic. Leukocytosis improving down to 20 7K, hemoglobin stable at 7.0, platelets 152k. Patient currently on cefepime, Flagyl however her vancomycin was discontinued. Medial drain has been added. 07/27/2019 Patient is seen today and the general floor and select. He is confused and lethargic he opens eyes to verbal stimuli but go back to sleep right away. Was getting hemodialysis and patient could not provide information. His blood pressure 133/82, heart rate 100-114. Hemoglobin today 6.4. Patient is 11 to get 1 unit of blood transfusion. Chest x-ray: Stable bibasilar infiltrates. Patient is on cefepime and Flagyl and they got vancomycin dose before. NG tube were stopped and patient was started on liquids diet. Neurologist evaluation is appreciated, most likely patient has metabolic toxic encephalopathy with suspicion of critical illness polyneuropathy he would need prolonged rehabilitation on discharge as well as EMG and nerve conduction studies of the upper lower extremity 07/28/2019 Patient mental status is improving, is more awake and alert and can show understanding. She was updated about his medical problems. He remains on antibiotics for sepsis, source unknown, catheter removed and tip sent to the [facility]. Vascular surgery placed and dialysis catheter for him today. Continue with hemodialysis as per community health counselor. Vitals are stable. Continue with antibiotics and his WBC is coming down to 20.8 K today. 07/29/2019 Patient is awake and alert. His movements and his extremity is improving gradually especially in the upper extremity. He has dialysis catheter in the right upper chest and patient is getting hemodialysis today. About 3 L of fluid will be taken off. His blood pressure 108/79. Coming down to 17.9 K, sodium 133. Catheter tip culture came back negative. Patient remains on antibiotics 07/30/2019 Patient is more awake and he getting more strength gradually. Continue with h emodialysis. Follow-up recommendation bilateral consultants or monitor him closely. Patient will need hospital social worker evaluation for finding hemodialysis but for him as an outpatient. Also patient would benefit from rehab as an outpatient. He still mildly tachycardic but improvement. Blood pressure is stable. WBC is 15.2 K, sodium 133. Objective - Vital Signs Vital signs: Vital Signs Temp 98.6 F 07/30/19 07:46 Pulse 110 H 07/30/19 07:53 Resp 18 07/30/19 07:46 BP 129/73 07/30/19 07:46 Pulse Ox 98 07/30/19 07:46 Intake & Output 07/29/19 07/30/19 07/30/19 18:59 06:59 18:59 Intake Total 236 200 Output Total 3090 190 100 Balance -2854 10 Intake: Oral 236 200 Output: Drainage 90 90 100 Right Abdomen 90 90 100 Urine 100 Hemodialysis 3000 Other: Voiding Method Indwelling Catheter Indwelling Catheter ABP, PAP, CO, CI - Last Documented Arterial Blood Pressure 96/53 - Exam -GENERAL: The patient is more awake today however he still confused. HEENT: Pupils are round and equally reacting to light. EOMI. No scleral icterus. No conjunctival pallor. Normocephalic, atraumatic. No pharyngeal erythema. No thyromegaly. CARDIOVASCULAR: S1 and S2 present. No murmurs, rubs, or gallops. PULMONARY: Chest is clear to auscultation, no wheezing or crackles. -ABDOMEN: Soft, nontender, nondistended, normoactive bowel sounds. No palpable organomegaly. right surgical wound is closed with dressing is in place. MARICHUY d rain is in place with serosanguineous drainage. Left femoral catheter. MUSCULOSKELETAL: No joint swelling or deformity. EXTREMITIES: No cyanosis, clubbing, or pedal edema. NEUROLOGICAL: Gross neurological examination did not reveal any focal deficits. SKIN: No rashes. no petechiae. - Labs CBC & Chem 7: 07/30/19 06:02 07/30/19 06:02 Labs: Abnormal Lab Results - Last 24 Hours (Table) 07/29/19 07/29/19 07/29/19 Range/Units 11:46 17:08 20:28 WBC (3.8-10.6) k/uL RBC (4.30-5.90) m/uL Hgb (13.0-17.5) gm/dL Hct (39.0-53.0) % Plt Count (150-450) k/uL Neutrophils # (1.3-7.7) k/uL Lymphocytes # (1.0-4.8) k/uL Sodium (137-145) mmol/L Chloride (98-107) mmol/L BUN (9-20) mg/dL Creatinine (0.66-1.25) mg/dL Glucose (74-99) mg/dL POC Glucose (mg/dL) 181 H 133 H 146 H (75-99) mg/dL Calcium (8.4-10.2) mg/dL 07/30/19 07/30/19 07/30/19 Range/Units 06:02 06:02 06:09 WBC 15.2 H (3.8-10.6) k/uL RBC 2.39 L (4.30-5.90) m/uL Hgb 7.5 L (13.0-17.5) gm/dL Hct 23.6 L (39.0-53.0) % Plt Count 143 L (150-450) k/uL Neutrophils # 13.0 H (1.3-7.7) k/uL Lymphocytes # 0.9 L (1.0-4.8) k/uL Sodium 133 L (137-145) mmol/L Chloride 96 L (98-107) mmol/L BUN 84 H (9-20) mg/dL Creatinine 5.15 H (0.66-1.25) mg/dL Glucose 108 H (74-99) mg/dL POC Glucose (mg/dL) 128 H (75-99) mg/dL Calcium 8.2 L (8.4-10.2) mg/dL Microbiology - Last 24 Hours (Table) 07/23/19 10:17 Blood Culture - Final Blood No Growth after 144 hours 07/23/19 10:40 Blood Culture - Final Blood No Growth after 144 hours Assessment and Plan Assessment: gallstone pancreatitis with acute cholecystitis and choledocholithiasis. Status post cholecystectomy Possible sepsis secondary to above Acute hypoxic respiratory failure Pancreatic pseudocyst Acute kidney injury needing hemodialysis Hypertension history of hearing difficulty Plan: this is a pleasant 54 years old male who presents with gallstone pancreatitis status post cholecystectomy. Continue with antibiotics with cefepime and Flagyl .follow-up recommendation by infectious disease. Follow-up recommendation by other consultants including community health counselor, surgical service and critical care team. Labs and medication were reviewed.. Continue same treatment. Continue with symptomatic treatment. Resume home medication. Monitor lytes and vitals. DVT and GI prophylaxis. Further recommendations of the clinical course of the patient DVT prophylaxis: Subcutaneous heparin GI Prophylaxis: Protonix Prognosis is guarded
[2019-07-30 12:26] LABS: Glucose,Whole Blood 141 mg/dL (75-99)
--- NOTE | 2019-07-30 15:21 | P.PN ---
Subjective Progress Note Date: 07/30/19 CHIEF COMPLAINT: Acute gallstone pancreatitis HISTORY OF PRESENT ILLNESS: The patient is a 54-year-old male presented with sepsis including acute gallstone pancreatitis. He is status post open cholecy stectomy including multiple organ failure, now resolving. He is tolerating soft diet. No abdominal pain. He reports indigestion. ROS: No reports of nausea and vomiting. No fevers or chills. No new chest pain. PHYSICAL EXAM: VITAL SIGNS: Reviewed CONSTITUTIONAL: Well developed and in no acute distress. EYES: Conjuctivae without sclera icterus. Extraocular movements grossly intact. HEAD, EARS, NOSE, THROAT: Moist buccal mucosa. Head is atraumatic, normocephalic. Hears conversational speech. No nasal drainage. NECK: Supple. No thyroidomegaly. RESPIRATORY: Non-labored respirations and equal bilateral excursions. CARDIOVASCULAR: Palpable 2+ radial pulses. Port a cath along right chest wall without cellulitis. ABDOMEN: Soft. No peritonitis. Chicho-Keller drain serosanguineous MUSCULOSKELETAL: No gross deformity of the lower extremities noted. No clubbing. No cyanosis. SKIN: Good skin turgor. Well perfused. NEUROLOGIC: Cranial nerves I through XII grossly intact. No focal or lateralizing signs. PSYCH: Appropriate affect. Alert and oriented to person, place and time. CLINICAL LABS: White blood cell count persistently elevated down from 20,000- 17,000, over 15,000. Creatinine improving to 5.15 over the last 2+ weeks. ASSESSMENT: 1. Sepsis from gallstone pancreatitis 2. Acute kidney failure now on dialysis 3. Acute symptomatic gallstones status post open cholecystectomy PLAN: 1. Continue MARICHUY drain. 2. Reconcile medications for reflux. Objective - Vital Signs Vital signs: Vital Signs Temp 98.1 F 07/30/19 11:24 Pulse 108 H 07/30/19 12:03 Resp 18 07/30/19 11:25 BP 134/80 07/30/19 11:24 Pulse Ox 95 07/30/19 11:25 Intake & Output 07/29/19 07/30/19 07/30/19 18:59 06:59 18:59 Intake Total 236 200 Output Total 3090 190 100 Balance -2854 10 -100 Intake: Oral 236 200 Output: Drainage 90 90 100 Right Abdomen 90 90 100 Urine 100 Hemodialysis 3000 Other: Voiding Method Indwelling Catheter Indwelling Catheter Indwelling Catheter ABP, PAP, CO, CI - Last Documented Arterial Blood Pressure 96/53 - Labs CBC & Chem 7: 07/30/19 06:02 07/30/19 06:02 Labs: Abnormal Lab Results - Last 24 Hours (Table) 07/29/19 07/29/19 07/30/19 Range/Units 17:08 20:28 06:02 WBC 15.2 H (3.8-10.6) k/uL RBC 2.39 L (4.30-5.90) m/uL Hgb 7.5 L (13.0-17.5) gm/dL Hct 23.6 L (39.0-53.0) % Plt Count 143 L (150-450) k/uL Neutrophils # 13.0 H (1.3-7.7) k/uL Lymphocytes # 0.9 L (1.0-4.8) k/uL Sodium (137-145) mmol/L Chloride (98-107) mmol/L BUN (9-20) mg/dL Creatinine (0.66-1.25) mg/dL Glucose (74-99) mg/dL POC Glucose (mg/dL) 133 H 146 H (75-99) mg/dL Calcium (8.4-10.2) mg/dL 07/30/19 07/30/19 07/30/19 Range/Units 06:02 06:09 12:22 WBC (3.8-10.6) k/uL RBC (4.30-5.90) m/uL Hgb (13.0-17.5) gm/dL Hct (39.0-53.0) % Plt Count (150-450) k/uL Neutrophils # (1.3-7.7) k/uL Lymphocytes # (1.0-4.8) k/uL Sodium 133 L (137-145) mmol/L Chloride 96 L (98-107) mmol/L BUN 84 H (9-20) mg/dL Creatinine 5.15 H (0.66-1.25) mg/dL Glucose 108 H (74-99) mg/dL POC Glucose (mg/dL) 128 H 141 H (75-99) mg/dL Calcium 8.2 L (8.4-10.2) mg/dL Microbiology - Last 24 Hours (Table) 07/23/19 10:17 Blood Culture - Final Blood No Growth after 144 hours 07/23/19 10:40 Blood Culture - Final Blood No Growth after 144 hours Assessment and Plan (1) Acute gallstone pancreatitis Current Visit: Yes Status: Acute Code(s): K85.10 - BILIARY ACUTE PANCREATITIS WITHOUT NECROSIS OR INFECTION SNOMED Code(s): 357422311 (2) Sepsis Current Visit: Yes Status: Acute Code(s): A41.9 - SEPSIS, UNSPECIFIED ORGANISM SNOMED Code(s): 16106855 (3) Acute cholecystitis due to biliary calculus Current Visit: Yes Status: Acute Code(s): K80.00 - CALCULUS OF GALLBLADDER W ACUTE CHOLECYST W/O OBSTRUCTION SNOMED Code(s): 41714680735174 (4) Acute renal failure on dialysis Current Visit: Yes Status: Acute Code(s): N17.9 - ACUTE KIDNEY FAILURE, UNSPECIFIED; Z99.2 - DEPENDENCE ON RENAL DIALYSIS SNOMED Code(s): 689411442392309
[2019-07-30] MEDS: HYDROcodone/APAP 7.5-325MG 1 EACH TAB PO PRN (16:56)
[2019-07-30 18:00] LABS: Glucose,Whole Blood 117 mg/dL (75-99)
[2019-07-30 20:34] LABS: Glucose,Whole Blood 123 mg/dL (75-99)
--- NOTE | 2019-07-30 23:29 | PN ---
PROGRESS NOTE DATE OF SERVICE: 07/30/2019. REASON FOR FOLLOWUP: Leukocytosis, pancreatic pseudocyst. INTERVAL HISTORY: The patient is currently afebrile. The patient has been breathing comfortably. Patient denies having any chest pain or shortness of breath. Very minimal cough. Denies any nausea or vomiting. Some heartburn. No diarrhea. PHYSICAL EXAMINATION: Blood pressure is 129/76, pulse of 120, temperature 98.8. General description is a middle aged male lying in bed in no distress. Respiratory system: Unlabored breathing. Decreased breath sounds in the bases. No wheeze. Heart S1, S2. Regular rate and rhythm. ABDOMEN: Soft. No tenderness. LABS: Hemoglobin is 7.5, white count 15.2, BUN of 54, creatinine 5.15. 18.2. DIAGNOSTIC IMPRESSION AND PLAN: Patient with leukocytosis, likely multifactorial in this patient who did have pancreatic pseudocyst in patient with status post open appendectomy. Wound culture positive for coagulase negative Staph. cultures have been negative. Patient is currently covered with cefepime and Vanco. Continue oral antibiotics. Monitor clinical course closely. Family at the bedside. Questions were answered. MMODL / IJN: [id number] /
[2019-07-31] MEDS: HYDROmorphone 2 MG/ML 1 ML SYRINGE IVP PRN ×5 (02:13→19:10)
[2019-07-31] MEDS: CEFEPIME 1 GM in SODIUM CHLORIDE 0.9% 50 ML IVPB SCH (02:14)
[2019-07-31 06:21] LABS: Glucose,Whole Blood 128 mg/dL (75-99)
[2019-07-31] MEDS: CALCIUM ACETATE 667 MG TAB PO SCH ×4 (06:37→17:53)
[2019-07-31] MEDS: SEVELAMER 800 MG TAB PO SCH ×4 (06:38→17:53)
[2019-07-31] MEDS: PANTOPRAZOLE 40 MG TABLET PO SCH (06:38)
[2019-07-31] MEDS: INSULIN ASPART (NovoLOG) 100 UNIT/ML VIAL SQ SCH ×4 (06:39→20:59)
[2019-07-31 06:40] LABS: Calcium 8.5 mg/dL (8.4-10.2); Potassium 5.2 mmol/L (3.5-5.1)
[2019-07-31] MEDS: IPRATROPIUM-ALBUTEROL 3 ML NEB INHALATION SCH ×4 (07:33→19:51)
--- NOTE | 2019-07-31 09:52 | P.PN ---
Subjective Patient is seen in follow-up for acute kidney injury, currently hemodialysis dependent. Urine output documented as 1.5 L in the last 24 hours. Edema improved. Currently awake and alert. Denies chest pain or shortness of breath. Vital signs are stable. General: The patient appeared well nourished and normally developed. Intubated. HEENT: Head exam is unremarkable. Neck is without jugular venous distension. LUNGS: Lungs are clear to auscultation and percussion. Breath sounds decreased. HEART: Rate and Rhythm are regular. First and second heart sounds normal. No murmurs, rubs or gallops. ABDOMEN: Bowel sounds decreased. EXTREMITITES: 1+ edema. Objective - Vital Signs Vital signs: Vital Signs Temp 98.7 F 07/31/19 07:48 Pulse 114 H 07/31/19 07:48 Resp 16 07/31/19 08:00 BP 125/79 07/31/19 07:48 Pulse Ox 97 07/31/19 07:48 Intake & Output 07/30/19 07/31/19 07/31/19 18:59 06:59 18:59 Intake Total 430 70 240 Output Total 1260 755 95 Balance -830 -685 145 Weight 178.5 kg Intake: IV 50 Cefepime 1 gm In Sodium 50 Chloride 0.9% 50 ml @ 100 mls/hr IVPB Q24H [facility] Rx# :[id number] Intake, IV Titration 20 Amount Sodium Chloride 0.9% 250 20 ml @ 0 mls/hr IV .[facility] Rx#:[id number] Oral 430 240 Output: Drainage 260 180 95 Right Abdomen 260 180 95 Urine 1000 575 Other: Voiding Method Indwelling Catheter Indwelling Catheter Indwelling Catheter ABP, PAP, CO, CI - Last Documented Arterial Blood Pressure 96/53 - Labs CBC & Chem 7: 07/30/19 06:02 07/31/19 05:50 Labs: Abnormal Lab Results - Last 24 Hours (Table) 07/30/19 07/30/19 07/30/19 Range/Units 12:22 17:29 20:33 Sodium (137-145) mmol/L Potassium (3.5-5.1) mmol/L Chloride (98-107) mmol/L BUN (9-20) mg/dL Creatinine (0.66-1.25) mg/dL Glucose (74-99) mg/dL POC Glucose (mg/dL) 141 H 117 H 123 H (75-99) mg/dL 07/31/19 07/31/19 Range/Units 05:50 06:19 Sodium 132 L (137-145) mmol/L Potassium 5.2 H (3.5-5.1) mmol/L Chloride 94 L (98-107) mmol/L BUN 98 H (9-20) mg/dL Creatinine 6.28 H (0.66-1.25) mg/dL Glucose 109 H (74-99) mg/dL POC Glucose (mg/dL) 128 H (75-99) mg/dL Assessment and Plan Plan: Assessment: 1. Acute kidney injury secondary to ATN secondary to septic shock, currently hemodialysis dependent. Started on hemodialysis July 15. Baseline creatinine is near 1 and peaked at greater than 8 this admission. Nonoliguric. 2. Volume overload. Partially due to third spacing due to hypoalbuminemia. Improving with UF. 3. Severe acute pancreatitis. ERCP was attempted earlier this admission. Status post open cholecystectomy on July 17. 4. Hyperphosphatemia secondary to acute kidney injury maintained on PhosLo and Renvela. 5. Ileus, s/p TPN. 6. Metabolic acidosis secondary to acute kidney injury. Improved with mindy lysis. 7. Hyperkalemia secondary to acute kidney injury and metabolic acidosis. Stable. 8. Hypervolemic hyponatremia. Stable. 9. Status post permacath placement July 28. Plan: Currently seen while undergoing hemodialysis.. Another treatment tomorrow. Avoid nephrotoxins. Continue to monitor renal function and urine output. merchandising execution manager following to set up outpatient hemodialysis. Will monitor for renal recovery outpatient. Repeat phosphorus level.
--- NOTE | 2019-07-31 10:13 | P.PN ---
<Cristina Sanderson A - Last Filed: 07/31/19 10:10> Subjective Progress Note Date: 07/31/19 CHIEF COMPLAINT: Abdominal pain HISTORY OF PRESENT ILLNESS: Patient is status post open cholecystectomy. Patient examined at the bedside. Patient is awake and alert. Currently undergoing dialysis. He reports having cereal for breakfast. Denies nausea or vomiting. Denies abdominal pain. PHYSICAL EXAM: VITAL SIGNS: Reviewed GENERAL: Well-developed in no acute distress. HEENT: No sclera icterus. Extraocular movements grossly intact. Moist buccal mucosa. Head is atraumatic, normocephalic. Hears conversational speech. No nasal drainage. NECK: Supple without lymphadenopathy. CHEST: Non-labored respirations and equal bilateral excursions. CARDIOVASCULAR: Regular rate with regular rhythm. Palpable 2+ radial pulses. ABDOMEN: Soft. Nondistended. Dressing CDI. MARICHUY with serous drainage MUSCULOSKELETAL: No clubbing or cyanosis. NEUROLOGIC: No focal or lateralizing signs. Cranial nerves II through XII grossly intact. PSYCH: Appropriate affect. Alert and oriented. SKIN: Well perfused. Good skin turgor. ASSESSMENT: 1. Abdominal pain 2. Cholelithiasis, Possible choledocholithiasis 3. Pancreatitis 4. Hyperbilirubinemia 5. Transaminitis PLAN: Continue to monitor MARICHUY drainage Continue renal diet Continue antibiotics per ID. Continue to monitor WBC. New optifoam ordered. Change abdominal dressing today. Nurse practitioner note has been reviewed by physician. Signing provider agrees with the documented findings, assessment, and plan of care. Objective - Vital Signs Vital signs: Vital Signs Temp 98.7 F 07/31/19 07:48 Pulse 114 H 07/31/19 07:48 Resp 16 07/31/19 08:00 BP 125/79 07/31/19 07:48 Pulse Ox 97 07/31/19 07:48 Intake & Output 07/30/19 07/31/19 07/31/19 18:59 06:59 18:59 Intake Total 430 70 240 Output Total 1260 755 95 Balance -830 -075 145 Weight 178.5 kg Intake: IV 50 Cefepime 1 gm In Sodium 50 Chloride 0.9% 50 ml @ 100 mls/hr IVPB Q24H [facility] Rx# :[id number] Intake, IV Titration 20 Amount Sodium Chloride 0.9% 250 20 ml @ 0 mls/hr IV .[facility] Rx#:[id number] Oral 430 240 Output: Drainage 260 180 95 Right Abdomen 260 180 95 Urine 1000 575 Other: Voiding Method Indwelling Catheter Indwelling Catheter Indwelling Catheter ABP, PAP, CO, CI - Last Documented Arterial Blood Pressure 96/53 - Labs CBC & Chem 7: 07/30/19 06:02 07/31/19 05:50 Labs: Abnormal Lab Results - Last 24 Hours (Table) 07/30/19 07/30/19 07/30/19 Range/Units 12:22 17:29 20:33 Sodium (137-145) mmol/L Potassium (3.5-5.1) mmol/L Chloride (98-107) mmol/L BUN (9-20) mg/dL Creatinine (0.66-1.25) mg/dL Glucose (74-99) mg/dL POC Glucose (mg/dL) 141 H 117 H 123 H (75-99) mg/dL 07/31/19 07/31/19 Range/Units 05:50 06:19 Sodium 132 L (137-145) mmol/L Potassium 5.2 H (3.5-5.1) mmol/L Chloride 94 L (98-107) mmol/L BUN 98 H (9-20) mg/dL Creatinine 6.28 H (0.66-1.25) mg/dL Glucose 109 H (74-99) mg/dL POC Glucose (mg/dL) 128 H (75-99) mg/dL <Chio Benavidez - Last Filed: 07/31/19 17:43> Subjective Patient seen and evaluated. He reports not tolerating the diet. Minimal nausea. Family at bedside. He is looking for discharge Objective - Vital Signs Vital signs: Vital Signs Temp 98.8 F 07/31/19 15:38 Pulse 118 H 07/31/19 16:00 Resp 18 07/31/19 16:00 BP 128/80 07/31/19 15:38 Pulse Ox 99 07/31/19 15:38 Intake & Output 07/30/19 07/31/19 07/31/19 18:59 06:59 18:59 Intake Total 430 70 240 Output Total 1841.557.4878 Balance -395 -439 -0645 Weight 178.5 kg 178.5 kg Intake: IV 50 Cefepime 1 gm In Sodium 50 Chloride 0.9% 50 ml @ 100 mls/hr IVPB Q24H [facility] Rx# :[id number] Intake, IV Titration 20 Amount Sodium Chloride 0.9% 250 20 ml @ 0 mls/hr IV .[facility] Rx#:[id number] Oral 430 240 Output: Drainage 260 180 245 Right Abdomen 260 180 245 Urine 1000 575 300 Hemodialysis 3000 Other: Voiding Method Indwelling Catheter Indwelling Catheter Indwelling Catheter ABP, PAP, CO, CI - Last Documented Arterial Blood Pressure 96/53 - Labs CBC & Chem 7: 07/30/19 06:02 07/31/19 05:50 Labs: Abnormal Lab Results - Last 24 Hours (Table) 07/30/19 07/30/19 07/31/19 Range/Units 17:29 20:33 05:50 Sodium 132 L (137-145) mmol/L Potassium 5.2 H (3.5-5.1) mmol/L Chloride 94 L (98-107) mmol/L BUN 98 H (9-20) mg/dL Creatinine 6.28 H (0.66-1.25) mg/dL Glucose 109 H (74-99) mg/dL POC Glucose (mg/dL) 117 H 123 H (75-99) mg/dL 07/31/19 07/31/19 07/31/19 Range/Units 06:19 11:47 16:21 Sodium (137-145) mmol/L Potassium (3.5-5.1) mmol/L Chloride (98-107) mmol/L BUN (9-20) mg/dL Creatinine (0.66-1.25) mg/dL Glucose (74-99) mg/dL POC Glucose (mg/dL) 128 H 121 H 150 H (75-99) mg/dL Assessment and Plan (1) Acute gallstone pancreatitis Current Visit: Yes Status: Acute Code(s): K85.10 - BILIARY ACUTE PANCREATITIS WITHOUT NECROSIS OR INFECTION SNOMED Code(s): 892104722 (2) Sepsis Current Visit: Yes Status: Acute Code(s): A41.9 - SEPSIS, UNSPECIFIED ORGANISM SNOMED Code(s): 65923491 (3) Acute cholecystitis due to biliary calculus Current Visit: Yes Status: Acute Code(s): K80.00 - CALCULUS OF GALLBLADDER W ACUTE CHOLECYST W/O OBSTRUCTION SNOMED Code(s): 19037233074753 (4) Acute renal failure on dialysis Current Visit: Yes Status: Acute Code(s): N17.9 - ACUTE KIDNEY FAILURE, UNSPECIFIED; Z99.2 - DEPENDENCE ON RENAL DIALYSIS SNOMED Code(s): 198453255663319
[2019-07-31] MEDS: CALCIUM CARBONATE 500 MG CHEWABLE PO PRN (11:11)
--- NOTE | 2019-07-31 11:38 | P.PN ---
Subjective covering Dr. Lopez starting 07/24/2019 This is a pleasant 54-year-old Patient of Dr. Malloy. with past medical history of hypertension and hearing difficulty. Presents with upper abdominal epigastric pain found to have acute pancreatitis secondary to acute cholecystitis with choledocholithiasis. He is status post cholecystectomy on and 07/17. Also patientwas in acute kidney injury and renal failure and eventually needed hemodialysis which is undergoing currently and acute hypoxic respiratory failure status post temporal intubation and extubation. Sepsis is also suspected that's why patient was started on antibiotics and currently is on cefepime and Flagyl. patient remains in the ICU and confused although at times he can wake up and talk with some sentences. However when I saw the patient he was still confused and currently waking up for verbal and tactile stimuli.vitals showing tachycardia with heart rate 114-120. he is saturating 93% on 3 L oxygen.Blood pressure 105/59.patient labs showed leukocytosis of 30 2.9K. Hemoglobin stable at 7.3.liver enzymes are slightly elevated. 07/25/2019 Patient mentation is partially improved, the open eyes spontaneously, he follows commands, he answers some questions appropriately, he knows where he is "I am at [facility]" . Patient pulled out his NG tube today, he has no appetite, no abdominal pain or tenderness however patient is poor historian.patient is still febrile 99.9 today and tachycardic 122 and tachypneic 31. He is saturating 93% on room air.he still have significant leukocytosis of 30 1.5K, hemoglobin is 7.0.sugar is controlled and divided enzymes mildly elevated.MARICHUY drain is in place. Patients will need a CAT scan of the abdomen and pelvis with oral contrast to rule out abscess, recommended by ID team currently patient is on Flagyl, cefepime and IV vancomycin. 07/26/2019 Patient confusion is improving gradually, his lethargic with generalized weakness. NG tube is in place. Bedside nurse planning to do a bedside swallow evaluation. He can resume his diet if he passes. Infectious disease consult her current CAT scan of the abdomen which showed pseudocyst however surgical think no need for any surgical intervention other than conservative management and keep monitoring. he still somewhat tachycardic and tachypneic. Leukocytosis improving down to 20 7K, hemoglobin stable at 7.0, platelets 152k. Patient currently on cefepime, Flagyl however her vancomycin was discontinued. Medial drain has been added. 07/27/2019 Patient is seen today and the general floor and select. He is confused and lethargic he opens eyes to verbal stimuli but go back to sleep right away. Was getting hemodialysis and patient could not provide information. His blood pressure 133/82, heart rate 100-114. Hemoglobin today 6.4. Patient is 11 to get 1 unit of blood transfusion. Chest x-ray: Stable bibasilar infiltrates. Patient is on cefepime and Flagyl and they got vancomycin dose before. NG tube were stopped and patient was started on liquids diet. Neurologist evaluation is appreciated, most likely patient has metabolic toxic encephalopathy with suspicion of critical illness polyneuropathy he would need prolonged rehabilitation on discharge as well as EMG and nerve conduction studies of the upper lower extremity 07/28/2019 Patient mental status is improving, is more awake and alert and can show understanding. She was updated about his medical problems. He remains on antibiotics for sepsis, source unknown, catheter removed and tip sent to the [facility]. Vascular surgery placed and dialysis catheter for him today. Continue with hemodialysis as per med spec. Vitals are stable. Continue with antibiotics and his WBC is coming down to 20.8 K today. 07/29/2019 Patient is awake and alert. His movements and his extremity is improving gradually especially in the upper extremity. He has dialysis catheter in the right upper chest and patient is getting hemodialysis today. About 3 L of fluid will be taken off. His blood pressure 108/79. Coming down to 17.9 K, sodium 133. Catheter tip culture came back negative. Patient remains on antibiotics 07/30/2019 Patient is more awake and he getting more strength gradually. Continue with h emodialysis. Follow-up recommendation bilateral consultants or monitor him closely. Patient will need social human services assistants evaluation for finding hemodialysis but for him as an outpatient. Also patient would benefit from rehab as an outpatient. He still mildly tachycardic but improvement. Blood pressure is stable. WBC is 15.2 K, sodium 133. 07/31/2019 Patient is getting dialysis today. His mental status and physical strength are improving. municipal maintenance worker/telephonic nurse case manager to work on placement as well as finding a slot for his hemodialysis.potassium 5.2, heart rate is 114. Follow-up WBC Objective - Vital Signs Vital signs: Vital Signs Temp 98.7 F 07/31/19 07:48 Pulse 114 H 07/31/19 11:21 Resp 18 07/31/19 11:21 BP 158/88 07/31/19 11:08 Pulse Ox 98 07/31/19 11:08 Intake & Output 07/30/19 07/31/19 07/31/19 18:59 06:59 18:59 Intake Total 430 70 240 Output Total 1260 755 95 Balance -830 -685 145 Weight 178.5 kg Intake: IV 50 Cefepime 1 gm In Sodium 50 Chloride 0.9% 50 ml @ 100 mls/hr IVPB Q24H [facility] Rx# :[id number] Intake, IV Titration 20 Amount Sodium Chloride 0.9% 250 20 ml @ 0 mls/hr IV .PolyInnovationsRentlytics ONE Rx#:[id number] Oral 430 240 Output: Drainage 260 180 95 Right Abdomen 260 180 95 Urine 1000 575 Other: Voiding Method Indwelling Catheter Indwelling Catheter Indwelling Catheter ABP, PAP, CO, CI - Last Documented Arterial Blood Pressure 96/53 - Exam -GENERAL: The patient is more awake today however he still confused. HEENT: Pupils are round and equally reacting to light. EOMI. No scleral icterus. No conjunctival pallor. Normocephalic, atraumatic. No pharyngeal erythema. No thyromegaly. CARDIOVASCULAR: S1 and S2 present. No murmurs, rubs, or gallops. PULMONARY: Chest is clear to auscultation, no wheezing or crackles. -ABDOMEN: Soft, nontender, nondistended, normoactive bowel sounds. No palpable organomegaly. right surgical wound is closed with dressing is in place. MARICHUY drain is in place with serosanguineous drainage. Left femoral catheter. MUSCULOSKELETAL: No joint swelling or deformity. EXTREMITIES: No cyanosis, clubbing, or pedal edema. NEUROLOGICAL: Gross neurological examination did not reveal any focal deficits. SKIN: No rashes. no petechiae. - Labs CBC & Chem 7: 07/30/19 06:02 07/31/19 05:50 Labs: Abnormal Lab Results - Last 24 Hours (Table) 07/30/19 07/30/19 07/30/19 Range/Units 12:22 17:29 20:33 Sodium (137-145) mmol/L Potassium (3.5-5.1) mmol/L Chloride (98-107) mmol/L BUN (9-20) mg/dL Creatinine (0.66-1.25) mg/dL Glucose (74-99) mg/dL POC Glucose (mg/dL) 141 H 117 H 123 H (75-99) mg/dL 07/31/19 07/31/19 Range/Units 05:50 06:19 Sodium 132 L (137-145) mmol/L Potassium 5.2 H (3.5-5.1) mmol/L Chloride 94 L (98-107) mmol/L BUN 98 H (9-20) mg/dL Creatinine 6.28 H (0.66-1.25) mg/dL Glucose 109 H (74-99) mg/dL POC Glucose (mg/dL) 128 H (75-99) mg/dL Assessment and Plan Assessment: gallstone pancreatitis with acute cholecystitis and choledocholithiasis. Status post cholecystectomy Possible sepsis secondary to above Acute hypoxic respiratory failure Pancreatic pseudocyst Acute kidney injury needing hemodialysis Hypertension history of hearing difficulty Plan: this is a pleasant 54 years old male who presents with gallstone pancreatitis status post cholecystectomy. Continue with antibiotics with cefepime and Flagyl .follow-up recommendation by infectious disease. Follow-up recommendation by other consultants including med spec, surgical service and critical care team. Labs and medication were reviewed.. Continue same treatment. Continue with symptomatic treatment. Resume home medication. Monitor lytes and vitals. DVT and GI prophylaxis. Further recommendations of the clinical course of the patient DVT prophylaxis: Subcutaneous heparin GI Prophylaxis: Protonix Prognosis is guarded
[2019-07-31 11:49] LABS: Glucose,Whole Blood 121 mg/dL (75-99)
[2019-07-31] MEDS ORDERED: HEPARIN SODIUM,PORCINE 5,000 UNIT/ML 1 ML VIAL ONE (12:00)
[2019-07-31] MEDS: metroNIDAZOLE 500 MG TAB PO SCH ×5 (12:06→22:51)
[2019-07-31] MEDS: HEPARIN SODIUM,PORCINE 5,000 UNIT/ML 1 ML VIAL SQ SCH ×4 (12:06→22:51)
[2019-07-31 16:30] LABS: Glucose,Whole Blood 150 mg/dL (75-99)
[2019-07-31 20:45] LABS: Glucose,Whole Blood 145 mg/dL (75-99)
--- NOTE | 2019-07-31 22:23 | PN ---
PROGRESS NOTE DATE OF SERVICE: 07/31/2019 REASON FOR FOLLOWUP: Leukocytosis, pancreatic pseudocyst. INTERVAL HISTORY: The patient is currently afebrile. Patient is breathing comfortably. He was noted to be slightly lethargic at time of evaluation this afternoon. No vomiting or diarrhea reported by the nursing staff. The patient himself unable to provide any history. PHYSICAL EXAMINATION: Blood pressure 128/80 with a pulse of 102, temperature 98.8. He is 99% on 2 L nasal cannula. General description is a middle-aged male, lying in bed in no distress. Respiratory system: Unlabored breathing. Decreased breath sounds in the bases. No wheeze. Heart S1, S2. Regular rate and rhythm. Abdomen soft. No tenderness. LABS: Hemoglobin 7.5, white count 15.2 BUN of 98, creatinine 6.28. DIAGNOSTIC IMPRESSION AND PLAN: Patient with leukocytosis which is likely multifactorial in this patient who did have pancreatic pseudocyst who was recently admitted to the hospital with gallstone pancreatitis, status post open cholecystectomy. The patient is currently afebrile and white count was 1 abdominal plan. Continue with cefepime and vancomycin and monitor his clinical course closely. MMODL / IJN: [id number] /
[2019-07-31] MEDS: HYDROcodone/APAP 7.5-325MG 1 EACH TAB PO PRN (22:50)
[2019-08-01] MEDS: HYDROmorphone 2 MG/ML 1 ML SYRINGE IVP PRN (00:09)
[2019-08-01] MEDS: CALCIUM CARBONATE 500 MG CHEWABLE PO PRN (03:52)
[2019-08-01 05:59] LABS: Glucose,Whole Blood 144 mg/dL (75-99)
[2019-08-01] MEDS: PANTOPRAZOLE 40 MG TABLET PO SCH (06:04)
[2019-08-01] MEDS: INSULIN ASPART (NovoLOG) 100 UNIT/ML VIAL SQ SCH ×4 (06:04→20:53)
[2019-08-01] MEDS: IPRATROPIUM-ALBUTEROL 3 ML NEB INHALATION SCH ×4 (06:51→19:14)
[2019-08-01] MEDS: ONDANSETRON 4 MG/2 ML VIAL IVP PRN ×2 (07:11→17:48)
[2019-08-01 07:26] LABS: Calcium 8.3 mg/dL (8.4-10.2); Phosphorus 7.9 mg/dL (2.5-4.5); Potassium 4.7 mmol/L (3.5-5.1)
[2019-08-01] MEDS: SEVELAMER 800 MG TAB PO SCH ×3 (07:51→17:25)
[2019-08-01] MEDS: CALCIUM ACETATE 667 MG TAB PO SCH ×3 (07:51→17:25)
[2019-08-01] MEDS ORDERED: BISACODYL 10 MG SUPP RECTAL STA (08:10)
[2019-08-01 08:25] LABS: Basophils # (A) 0.1 k/uL (0-0.2); Basophils % (A) 1 %; Eosinophils # (A) 0.3 k/uL (0-0.7); Eosinophils % (A) 2 %; HCT 21.5 % (39.0-53.0); Hypochromasia Slight; Lymphocytes # (A) 0.7 k/uL (1.0-4.8); Lymphocytes % (A) 6 %; MCH 30.7 pg (25.0-35.0); MCHC 31.8 g/dL (31.0-37.0); MCV 96.3 fL (80.0-100.0); Mean Platelet Volume 10.5; Monocytes # (A) 0.9 k/uL (0-1.0); Monocytes % (A) 7 %; Neutrophils # (A) 10.8 k/uL (1.3-7.7); Neutrophils % (A) 83 %; Platelet Count 114 k/uL (150-450); RBC 2.24 m/uL (4.30-5.90); RDW 13.9 % (11.5-15.5)
[2019-08-01 08:33] LABS: HGB 6.9 gm/dL (13.0-17.5)
[2019-08-01] MEDS: HYDROcodone/APAP 7.5-325MG 1 EACH TAB PO PRN (08:58)
[2019-08-01 09:53] LABS: Vancomycin,Random 20.6 ug/mL
--- NOTE | 2019-08-01 10:32 | CDI ---
Documentation Clarification Form Date: 08/01/2019 10:21:41 AM From: Ange GainesRodríguezSOPHY bullock, CCDS Admit Date: 07/11/2019 07:50:00 AM Patient Name: Wm Antonio Visit Number: [id number] Discharge Date: ATTENTION: The Clinical Documentation Specialists (CDI) and [facility] Coding Staff appreciate your assistance in clarifying documentation. Please respond to the clarification below the line at the bottom and electronically sign. The CDI & [facility] Coding staff will review the response and follow-up if needed. Please note: Queries are made part of the Legal Health Record. If you have any questions, please contact the author of this message via ITS. Dr. Fadi Lopez: Per the 07/21 attending progress note: Remains in A. fib. History/Risk Factors: Drinks about 12 beers during the weekends, Hypertension, Smoker. Clinical Indicators: Presented on 07/11 with abdominal pain, diagnosed with acute cholecystitis, choledocholithiasis & acute biliary pancreatitis, open cholecystectomy done on 07/18 with complicated postoperative course. EKG 07/11: R 79 nsr. Repeat R 121 sinus tachycardia. 07/11 HR: 91, 07/12 HR 134^, 07/13 - 07/16 remains > 100, 07/17 - : 90s - 100s, 07/19 80s - 100s, 07/20 - current: 110s. Treatment: Hemodialysis cath placed on 07/20 for SHIMA w/ATN, Open cholecystectomy done on 07/18 (report pending), On admission, IV fluid bolus, IV dilaudid, Iv Zofran, IV Rocephin, IV Toradol, IV Flagyl, IV Insulin 07/12, IV Cefepime 07/13, INH 07/13, IV Lasix 07/13, Heparin sq, IV Vanco. In your professional opinion, can you please clarify the type of Atrial Fibrillation, if known? Chronic/Permanent Paroxysmal Persistent Other, please specify Unable to determine (Last Revision: October 2017) Unable to determine MTDD
[2019-08-01] MEDS: LIDOCAINE 5% PATCH TOPICAL SCH (10:34)
--- NOTE | 2019-08-01 10:36 | P.PN ---
Subjective Progress Note Date: 08/01/19 Seen and examined for the follow-up of acute kidney injury on dialysis. Currently ongoing dialysis with the goal UF of 3 L today. Objective - Vital Signs Vital signs: Vital Signs Temp 98.9 F 08/01/19 07:48 Pulse 108 H 08/01/19 08:00 Resp 18 08/01/19 08:00 BP 131/75 08/01/19 07:48 Pulse Ox 91 L 08/01/19 07:48 Intake & Output 07/31/19 08/01/19 08/01/19 18:59 06:59 18:59 Intake Total 240 0 Output Total 3540 475 90 Balance -3305 -475 -90 Weight 178.5 kg 176 kg Intake: Oral 240 0 Output: Drainage 245 175 90 Right Abdomen 245 175 90 Urine 300 300 Hemodialysis 3000 Other: Voiding Method Indwelling Catheter Indwelling Catheter Indwelling Catheter ABP, PAP, CO, CI - Last Documented Arterial Blood Pressure 96/53 - Exam No acute distress S1-S2 heard Decreased breath sounds Trace edema - Labs CBC & Chem 7: 08/01/19 05:44 08/01/19 05:44 Labs: Abnormal Lab Results - Last 24 Hours (Table) 07/31/19 07/31/19 07/31/19 Range/Units 11:47 16:21 20:44 WBC (3.8-10.6) k/uL RBC (4.30-5.90) m/uL Hgb (13.0-17.5) gm/dL Hct (39.0-53.0) % Plt Count (150-450) k/uL Neutrophils # (1.3-7.7) k/uL Lymphocytes # (1.0-4.8) k/uL Sodium (137-145) mmol/L Chloride (98-107) mmol/L BUN (9-20) mg/dL Creatinine (0.66-1.25) mg/dL Glucose (74-99) mg/dL POC Glucose (mg/dL) 121 H 150 H 145 H (75-99) mg/dL Calcium (8.4-10.2) mg/dL Phosphorus (2.5-4.5) mg/dL 08/01/19 08/01/19 08/01/19 Range/Units 05:44 05:44 05:58 WBC 13.0 H (3.8-10.6) k/uL RBC 2.24 L (4.30-5.90) m/uL Hgb 6.9 L* (13.0-17.5) gm/dL Hct 21.5 L (39.0-53.0) % Plt Count 114 L (150-450) k/uL Neutrophils # 10.8 H (1.3-7.7) k/uL Lymphocytes # 0.7 L (1.0-4.8) k/uL Sodium 134 L (137-145) mmol/L Chloride 97 L (98-107) mmol/L BUN 72 H (9-20) mg/dL Creatinine 4.39 H (0.66-1.25) mg/dL Glucose 119 H (74-99) mg/dL POC Glucose (mg/dL) 144 H (75-99) mg/dL Calcium 8.3 L (8.4-10.2) mg/dL Phosphorus 7.9 H (2.5-4.5) mg/dL Assessment and Plan Assessment: #1 acute kidney injury dialysis dependent secondary to ischemic ATN from septic shock. Baseline creatinine 1.0 MG per DL with a peak creatinine of 8.0 MG per DL. #2 volume overload #3 severe acute pancreatitis status post cholecystectomy #4 metabolic acidosis, improved with dialysis #5 hyperkalemia improved with dialysis Plan: #1 hemodialysis today, next treatment plan on . #2 avoid nephrotoxic agents and hypotensive episodes #3 supportive care
--- NOTE | 2019-08-01 11:00 | P.PN ---
<Cristina Sanderson - Last Filed: 08/01/19 13:46> Subjective Progress Note Date: 08/01/19 CHIEF COMPLAINT: Abdominal pain HISTORY OF PRESENT ILLNESS: Patient is status post open cholecystectomy. Patient examined at the bedside. Patient is awake and alert. Currently undergoing dialysis. Patient reports having an upset stomach overnight but states it has improved this morning. He is complaining of severe back pain today. He denies nausea or vomiting. He is passing small amounts of flatus. Denies BM in the last few days. PHYSICAL EXAM: VITAL SIGNS: Reviewed GENERAL: Well-developed in no acute distress. HEENT: No sclera icterus. Extraocular movements grossly intact. Moist buccal mucosa. Head is atraumatic, normocephalic. Hears conversational speech. No nasal drainage. NECK: Supple without lymphadenopathy. CHEST: Non-labored respirations and equal bilateral excursions. CARDIOVASCULAR: Regular rate with regular rhythm. Palpable 2+ radial pulses. ABDOMEN: Soft. Mildly distended. Dressing CDI. MARICHUY with serous drainage MUSCULOSKELETAL: No clubbing or cyanosis. NEUROLOGIC: No focal or lateralizing signs. Cranial nerves II through XII grossly intact. PSYCH: Appropriate affect. Alert and oriented. SKIN: Well perfused. Good skin turgor. ASSESSMENT: 1. Abdominal pain 2. Cholelithiasis, Possible choledocholithiasis 3. Pancreatitis 4. Hyperbilirubinemia 5. Transaminitis PLAN: Continue to monitor MARICHUY drainage Continue renal diet Continue antibiotics per ID. Continue to monitor WBC. Dulcolax rectally x 1 Begin MOM daily. First dose now. Obtain 2V abdominal xray 1 unit RBC transfusion today per medicine Management of back pain per internal medicine Nurse practitioner note has been reviewed by physician. Signing provider agrees with the documented findings, assessment, and plan of care. Objective - Vital Signs Vital signs: Vital Signs Temp 98.9 F 08/01/19 07:48 Pulse 108 H 08/01/19 08:00 Resp 18 08/01/19 08:00 BP 131/75 08/01/19 07:48 Pulse Ox 91 L 08/01/19 07:48 Intake & Output 07/31/19 08/01/19 08/01/19 18:59 06:59 18:59 Intake Total 240 0 Output Total 7721 760 77 Balance -3818 -677 -90 Weight 178.5 kg 176 kg Intake: Oral 240 0 Output: Drainage 245 175 90 Right Abdomen 245 175 90 Urine 300 300 Hemodialysis 3000 Other: Voiding Method Indwelling Catheter Indwelling Catheter Indwelling Catheter ABP, PAP, CO, CI - Last Documented Arterial Blood Pressure 96/53 - Labs CBC & Chem 7: 08/01/19 05:44 08/01/19 05:44 Labs: Abnormal Lab Results - Last 24 Hours (Table) 07/31/19 07/31/19 07/31/19 Range/Units 11:47 16:21 20:44 WBC (3.8-10.6) k/uL RBC (4.30-5.90) m/uL Hgb (13.0-17.5) gm/dL Hct (39.0-53.0) % Plt Count (150-450) k/uL Neutrophils # (1.3-7.7) k/uL Lymphocytes # (1.0-4.8) k/uL Sodium (137-145) mmol/L Chloride (98-107) mmol/L BUN (9-20) mg/dL Creatinine (0.66-1.25) mg/dL Glucose (74-99) mg/dL POC Glucose (mg/dL) 121 H 150 H 145 H (75-99) mg/dL Calcium (8.4-10.2) mg/dL Phosphorus (2.5-4.5) mg/dL 08/01/19 08/01/19 08/01/19 Range/Units 05:44 05:44 05:58 WBC 13.0 H (3.8-10.6) k/uL RBC 2.24 L (4.30-5.90) m/uL Hgb 6.9 L* (13.0-17.5) gm/dL Hct 21.5 L (39.0-53.0) % Plt Count 114 L (150-450) k/uL Neutrophils # 10.8 H (1.3-7.7) k/uL Lymphocytes # 0.7 L (1.0-4.8) k/uL Sodium 134 L (137-145) mmol/L Chloride 97 L (98-107) mmol/L BUN 72 H (9-20) mg/dL Creatinine 4.39 H (0.66-1.25) mg/dL Glucose 119 H (74-99) mg/dL POC Glucose (mg/dL) 144 H (75-99) mg/dL Calcium 8.3 L (8.4-10.2) mg/dL Phosphorus 7.9 H (2.5-4.5) mg/dL <Chio Benavidez N - Last Filed: 08/02/19 10:57> Subjective As above. Patient complains of back pain. No abdominal pain. Recommend assessment for back pain to address chronic narcotics for back pain or anesthesia/pain management Objective - Vital Signs Vital signs: Vital Signs Temp 98.8 F 08/02/19 04:45 Pulse 100 08/02/19 09:25 Resp 16 08/02/19 04:45 BP 126/84 08/02/19 04:45 Pulse Ox 95 08/02/19 04:45 Intake & Output 08/01/19 08/02/19 08/02/19 18:59 06:59 18:59 Intake Total 840 350 450 Output Total 3090 235 Balance -2250 115 450 Weight 177.1 kg Intake: IV 0 40 0.9 0 Invasive Line 8 40 Oral 840 450 Blood Product 0 310 Rc As-1 Unit 0 310 [id number] Output: Drainage 90 95 Right Abdomen 90 95 Urine 80 Stool 60 Hemodialysis 3000 Other: Voiding Method Urinal Urinal # Voids 1 # Bowel Movements 1 ABP, PAP, CO, CI - Last Documented Arterial Blood Pressure 96/53 - Labs CBC & Chem 7: 08/02/19 05:32 08/02/19 05:32 Labs: Abnormal Lab Results - Last 24 Hours (Table) 08/01/19 08/01/19 08/01/19 Range/Units 10:15 11:10 17:04 WBC (3.8-10.6) k/uL RBC (4.30-5.90) m/uL Hgb (13.0-17.5) gm/dL Hct (39.0-53.0) % Neutrophils # (1.3-7.7) k/uL Lymphocytes # (1.0-4.8) k/uL Monocytes # (0-1.0) k/uL Sodium (137-145) mmol/L BUN (9-20) mg/dL Creatinine (0.66-1.25) mg/dL Glucose (74-99) mg/dL POC Glucose (mg/dL) 123 H 157 H (75-99) mg/dL Alkaline Phosphatase (38-126) U/L Total Protein (6.3-8.2) g/dL Albumin (3.5-5.0) g/dL Crossmatch See Detail 08/01/19 08/02/19 08/02/19 Range/Units 20:28 05:32 05:32 WBC 17.8 H (3.8-10.6) k/uL RBC 3.00 L (4.30-5.90) m/uL Hgb 9.0 L D (13.0-17.5) gm/dL Hct 28.4 L (39.0-53.0) % Neutrophils # 15.0 H (1.3-7.7) k/uL Lymphocytes # 0.8 L (1.0-4.8) k/uL Monocytes # 1.1 H (0-1.0) k/uL Sodium 134 L (137-145) mmol/L BUN 62 H (9-20) mg/dL Creatinine 4.25 H (0.66-1.25) mg/dL Glucose 124 H (74-99) mg/dL POC Glucose (mg/dL) 120 H (75-99) mg/dL Alkaline Phosphatase 257 H (38-126) U/L Total Protein 6.0 L (6.3-8.2) g/dL Albumin 3.2 L (3.5-5.0) g/dL Crossmatch 08/02/19 Range/Units 06:05 WBC (3.8-10.6) k/uL RBC (4.30-5.90) m/uL Hgb (13.0-17.5) gm/dL Hct (39.0-53.0) % Neutrophils # (1.3-7.7) k/uL Lymphocytes # (1.0-4.8) k/uL Monocytes # (0-1.0) k/uL Sodium (137-145) mmol/L BUN (9-20) mg/dL Creatinine (0.66-1.25) mg/dL Glucose (74-99) mg/dL POC Glucose (mg/dL) 119 H (75-99) mg/dL Alkaline Phosphatase (38-126) U/L Total Protein (6.3-8.2) g/dL Albumin (3.5-5.0) g/dL Crossmatch Assessment and Plan (1) Acute gallstone pancreatitis Current Visit: Yes Status: Acute Code(s): K85.10 - BILIARY ACUTE PANCREATITIS WITHOUT NECROSIS OR INFECTION SNOMED Code(s): 168593933 (2) Sepsis Current Visit: Yes Status: Acute Code(s): A41.9 - SEPSIS, UNSPECIFIED [facility] SNOMED Code(s): 40298944 (3) Acute cholecystitis due to biliary calculus Current Visit: Yes Status: Acute Code(s): K80.00 - CALCULUS OF GALLBLADDER W ACUTE CHOLECYST W/O OBSTRUCTION SNOMED Code(s): 93547131578973 (4) Acute renal failure on dialysis Current Visit: Yes Status: Acute Code(s): N17.9 - ACUTE KIDNEY FAILURE, UNSPECIFIED; Z99.2 - DEPENDENCE ON RENAL DIALYSIS SNOMED Code(s): 028616114777565
[2019-08-01 11:12] LABS: Glucose,Whole Blood 123 mg/dL (75-99)
[2019-08-01] MEDS: HYDROcodone/APAP 10-325MG 1 EACH TAB PO PRN ×2 (11:31→17:25)
[2019-08-01] MEDS ORDERED: HYDROmorphone 1 MG/ML 1 ML SYRINGE IVP STA (12:06)
--- NOTE | 2019-08-01 12:09 | XR ---
EXAMINATION TYPE: XR abdomen 2V DATE OF EXAM: 08/01/2019 COMPARISON: NONE HISTORY: Abdominal pain TECHNIQUE: One view abdominal series FINDINGS: The osseous structures are intact. The bowel gas pattern is nonspecific. Dialysis catheter seen with bilateral consolidation and small effusion. There is an intra-abdominal catheter as well with the ritter rgical brad. Few prominent small bowel loops are noted. IMPRESSION: 1. Nonspecific abdomen with a few scattered prominent small bowel loops could represent an ileus or e nteritis. Partial obstruction not excluded. Correlate clinically. 2. Bilateral lower lobe infiltrate and small effusion.
[2019-08-01] MEDS: HEPARIN SODIUM,PORCINE 5,000 UNIT/ML 1 ML VIAL SQ SCH ×2 (12:21→12:49)
[2019-08-01] MEDS: metroNIDAZOLE 500 MG TAB PO SCH ×2 (12:21→17:24)
--- NOTE | 2019-08-01 13:04 | P.PN ---
Subjective covering Dr. Lopez starting 07/24/2019 This is a pleasant 54-year-old Patient of Dr. Malloy. with past medical history of hypertension and hearing difficulty. Presents with upper abdominal epigastric pain found to have acute pancreatitis secondary to acute cholecystitis with choledocholithiasis. He is status post cholecystectomy on and 07/17. Also patientwas in acute kidney injury and renal failure and eventually needed hemodialysis which is undergoing currently and acute hypoxic respiratory failure status post temporal intubation and extubation. Sepsis is also suspected that's why patient was started on antibiotics and currently is on cefepime and Flagyl. patient remains in the ICU and confused although at times he can wake up and talk with some sentences. However when I saw the patient he was still confused and currently waking up for verbal and tactile stimuli.vitals showing tachycardia with heart rate 114-120. he is saturating 93% on 3 L oxygen.Blood pressure 105/59.patient labs showed leukocytosis of 30 2.9K. Hemoglobin stable at 7.3.liver enzymes are slightly elevated. 07/25/2019 Patient mentation is partially improved, the open eyes spontaneously, he follows commands, he answers some questions appropriately, he knows where he is "I am at [facility]" . Patient pulled out his NG tube today, he has no appetite, no abdominal pain or tenderness however patient is poor historian.patient is still febrile 99.9 today and tachycardic 122 and tachypneic 31. He is saturating 93% on room air.he still have significant leukocytosis of 30 1.5K, hemoglobin is 7.0.sugar is controlled and divided enzymes mildly elevated.MARICHUY drain is in place. Patients will need a CAT scan of the abdomen and pelvis with oral contrast to rule out abscess, recommended by ID team currently patient is on Flagyl, cefepime and IV vancomycin. 07/26/2019 Patient confusion is improving gradually, his lethargic with generalized weakness. NG tube is in place. Bedside nurse planning to do a bedside swallow evaluation. He can resume his diet if he passes. Infectious disease consult her current CAT scan of the abdomen which showed pseudocyst however surgical think no need for any surgical intervention other than conservative management and keep monitoring. he still somewhat tachycardic and tachypneic. Leukocytosis improving down to 20 7K, hemoglobin stable at 7.0, platelets 152k. Patient currently on cefepime, Flagyl however her vancomycin was discontinued. Medial drain has been added. 07/27/2019 Patient is seen today and the general floor and select. He is confused and lethargic he opens eyes to verbal stimuli but go back to sleep right away. Was getting hemodialysis and patient could not provide information. His blood pressure 133/82, heart rate 100-114. Hemoglobin today 6.4. Patient is 11 to get 1 unit of blood transfusion. Chest x-ray: Stable bibasilar infiltrates. Patient is on cefepime and Flagyl and they got vancomycin dose before. NG tube were stopped and patient was started on liquids diet. Neurologist evaluation is appreciated, most likely patient has metabolic toxic encephalopathy with suspicion of critical illness polyneuropathy he would need prolonged rehabilitation on discharge as well as EMG and nerve conduction studies of the upper lower extremity 07/28/2019 Patient mental status is improving, is more awake and alert and can show understanding. She was updated about his medical problems. He remains on antibiotics for sepsis, source unknown, catheter removed and tip sent to the [facility]. Vascular surgery placed and dialysis catheter for him today. Continue with hemodialysis as per senior lead java developer. Vitals are stable. Continue with antibiotics and his WBC is coming down to 20.8 K today. 07/29/2019 Patient is awake and alert. His movements and his extremity is improving gradually especially in the upper extremity. He has dialysis catheter in the right upper chest and patient is getting hemodialysis today. About 3 L of fluid will be taken off. His blood pressure 108/79. Coming down to 17.9 K, sodium 133. Catheter tip culture came back negative. Patient remains on antibiotics 07/30/2019 Patient is more awake and he getting more strength gradually. Continue with h emodialysis. Follow-up recommendation bilateral consultants or monitor him closely. Patient will need social and human services assistant evaluation for finding hemodialysis but for him as an outpatient. Also patient would benefit from rehab as an outpatient. He still mildly tachycardic but improvement. Blood pressure is stable. WBC is 15.2 K, sodium 133. 07/31/2019 Patient is getting dialysis today. His mental status and physical strength are improving. household worker/nurse outreach case manager to work on placement as well as finding a slot for his hemodialysis.potassium 5.2, heart rate is 114. Follow-up WBC 08/01/2019 Patient is fully awake and oriented. His complaining of from severe back pain. Dilaudid 2 mg was discontinued with the postsurgical recommendation for affecting his ileus however patient is in excruciating pain and asking to be increased, originally weighed tapering off gradually and his getting Percocet/[place] 10-325 mg and Dilaudid 0.5 mg every 6 hours which can be lowered tomorrow also he is on lidocaine patch. abdominal x-ray showing ileus, There is also suspicion for bilateral infiltrates in the lower lung mai. Patient has no fever and leukocytosis is improving. He is on antibiotics. Encourage incentive spirometry. Patient was given 1 unit of blood transfusion for low hemoglobin. Objective - Vital Signs Vital signs: Vital Signs Temp 98.0 F 08/01/19 12:58 Pulse 126 H 08/01/19 12:58 Resp 20 08/01/19 12:58 BP 130/74 08/01/19 12:58 Pulse Ox 91 L 08/01/19 07:48 Intake & Output 07/31/19 08/01/19 08/01/19 18:59 06:59 18:59 Intake Total 240 0 Output Total 5262 361 3090 Balance -3303 -312 -3090 Weight 178.5 kg 176 kg Intake: Oral 240 0 Output: Drainage 245 175 90 Right Abdomen 245 175 90 Urine 300 300 Hemodialysis 3000 3000 Other: Voiding Method Indwelling Catheter Indwelling Catheter Indwelling Catheter ABP, PAP, CO, CI - Last Documented Arterial Blood Pressure 96/53 - Exam -GENERAL: The patient is more awake today however he still confused. HEENT: Pupils are round and equally reacting to light. EOMI. No scleral icterus. No conjunctival pallor. Normocephalic, atraumatic. No pharyngeal erythema. No thyromegaly. CARDIOVASCULAR: S1 and S2 present. No murmurs, rubs, or gallops. PULMONARY: Chest is clear to auscultation, no wheezing or crackles. -ABDOMEN: Soft, nontender, nondistended, normoactive bowel sounds. No palpable organomegaly. right surgical wound is closed with dressing is in place. MARICHUY drain is in place with serosanguineous drainage. Left femoral catheter. MUSCULOSKELETAL: No joint swelling or deformity. EXTREMITIES: No cyanosis, clubbing, or pedal edema. NEUROLOGICAL: Gross neurological examination did not reveal any focal deficits. SKIN: No rashes. no petechiae. - Labs CBC & Chem 7: 08/01/19 05:44 08/01/19 05:44 Labs: Abnormal Lab Results - Last 24 Hours (Table) 07/31/19 07/31/19 08/01/19 Range/Units 16:21 20:44 05:44 WBC (3.8-10.6) k/uL RBC (4.30-5.90) m/uL Hgb (13.0-17.5) gm/dL Hct (39.0-53.0) % Plt Count (150-450) k/uL Neutrophils # (1.3-7.7) k/uL Lymphocytes # (1.0-4.8) k/uL Sodium 134 L (137-145) mmol/L Chloride 97 L (98-107) mmol/L BUN 72 H (9-20) mg/dL Creatinine 4.39 H (0.66-1.25) mg/dL Glucose 119 H (74-99) mg/dL POC Glucose (mg/dL) 150 H 145 H (75-99) mg/dL Calcium 8.3 L (8.4-10.2) mg/dL Phosphorus 7.9 H (2.5-4.5) mg/dL 08/01/19 08/01/19 08/01/19 Range/Units 05:44 05:58 11:10 WBC 13.0 H (3.8-10.6) k/uL RBC 2.24 L (4.30-5.90) m/uL Hgb 6.9 L* (13.0-17.5) gm/dL Hct 21.5 L (39.0-53.0) % Plt Count 114 L (150-450) k/uL Neutrophils # 10.8 H (1.3-7.7) k/uL Lymphocytes # 0.7 L (1.0-4.8) k/uL Sodium (137-145) mmol/L Chloride (98-107) mmol/L BUN (9-20) mg/dL Creatinine (0.66-1.25) mg/dL Glucose (74-99) mg/dL POC Glucose (mg/dL) 144 H 123 H (75-99) mg/dL Calcium (8.4-10.2) mg/dL Phosphorus (2.5-4.5) mg/dL Assessment and Plan Assessment: gallstone pancreatitis with acute cholecystitis and choledocholithiasis. Status post cholecystectomy Possible sepsis secondary to above Acute hypoxic respiratory failure Pancreatic pseudocyst Acute kidney injury needing hemodialysis Hypertension history of hearing difficulty Plan: this is a pleasant 54 years old male who presents with gallstone pancreatitis status post cholecystectomy. Continue with antibiotics with cefepime and Flagyl .follow-up recommendation by infectious disease. Follow-up recommendation by other consultants including senior lead java developer, surgical service and critical care team. Labs and medication were reviewed.. Continue same treatment. Continue with symptomatic treatment. Resume home medication. Monitor lytes and vitals. DVT and GI prophylaxis. Further recommendations of the clinical course of the patient DVT prophylaxis: Subcutaneous heparin GI Prophylaxis: Protonix Prognosis is guarded
[2019-08-01] MEDS ORDERED: MAGNESIUM HYDROXIDE 2,400 MG/10 ML CUP PO ONE (14:00)
[2019-08-01] MEDS ORDERED: VANCOMYCIN 1,750 MG in SODIUM CHLORIDE 0.9% 500 ML 500 ML IVPB ONE (16:00)
[2019-08-01 17:06] LABS: Glucose,Whole Blood 157 mg/dL (75-99)
[2019-08-01] MEDS: HYDROmorphone 0.5 MG/0.5 ML SYRINGE IVP PRN (17:47)
[2019-08-01 20:29] LABS: Glucose,Whole Blood 120 mg/dL (75-99)
[2019-08-01] MEDS: ACETAMINOPHEN TAB 325 MG TAB PO PRN (21:49)
--- NOTE | 2019-08-01 23:00 | PN ---
PROGRESS NOTE DATE OF SERVICE: 08/01/2019 REASON FOR FOLLOWUP: Leukocytosis and pancreatitis pseudocyst. INTERVAL HISTORY: The patient is currently afebrile. The patient has been breathing comfortably. Denies having any chest pain or any cough. No nausea, no vomiting, no abdominal pain. Has been complaining of some pain in the low back area. PHYSICAL EXAMINATION: Blood pressure 127/74 with a pulse of 112, temperature 99.1. He is 97% on room air. General description is a middle-aged male lying in bed in no distress. RESPIRATORY SYSTEM: Unlabored breathing. Clear to auscultation anteriorly. HEART: S1, S2. Regular rate and rhythm. ABDOMEN: Soft. No tenderness. LABS: Hemoglobin 6.1, white count 13,000. BUN of 72, creatinine 4.39. DIAGNOSTIC IMPRESSION AND PLAN: Patient with leukocytosis, multifactorial, in this patient who did have a pancreatic pseudocyst caused from pancreatitis, status post open cholecystectomy. Patient to continue with vancomycin and monitor his clinical course closely. White count is already down to 13,000. MMODL / IJN: [id number] /
[2019-08-02] MEDS: metroNIDAZOLE 500 MG TAB PO SCH ×2 (00:18→09:41)
[2019-08-02] MEDS: HEPARIN SODIUM,PORCINE 5,000 UNIT/ML 1 ML VIAL SQ SCH ×4 (00:22→23:49)
[2019-08-02] MEDS: HYDROmorphone 0.5 MG/0.5 ML SYRINGE IVP PRN ×5 (00:22→23:49)
[2019-08-02] MEDS: ONDANSETRON 4 MG/2 ML VIAL IVP PRN (04:51)
[2019-08-02] MEDS: HYDROcodone/APAP 10-325MG 1 EACH TAB PO PRN ×3 (05:20→21:04)
[2019-08-02 06:07] LABS: Basophils # (A) 0.1 k/uL (0-0.2); Basophils % (A) 1 %; Eosinophils # (A) 0.3 k/uL (0-0.7); Eosinophils % (A) 2 %; HCT 28.4 % (39.0-53.0); Hypochromasia Slight; Lymphocytes # (A) 0.8 k/uL (1.0-4.8); Lymphocytes % (A) 5 %; MCH 30.1 pg (25.0-35.0); MCHC 31.8 g/dL (31.0-37.0); MCV 94.5 fL (80.0-100.0); Monocytes # (A) 1.1 k/uL (0-1.0); Monocytes % (A) 6 %; Neutrophils % (A) 85 %; Poikilocytosis Slight; RDW 14.4 % (11.5-15.5); WBC 17.8 k/uL (3.8-10.6)
[2019-08-02 06:07] LABS: Glucose,Whole Blood 119 mg/dL (75-99)
[2019-08-02 06:10] LABS: Platelet Count 289 k/uL (150-450)
[2019-08-02 06:16] LABS: Albumin 3.2 g/dL (3.5-5.0); Calcium 8.6 mg/dL (8.4-10.2); Potassium 4.3 mmol/L (3.5-5.1); Total Bilirubin 0.8 mg/dL (0.2-1.3)
[2019-08-02] MEDS: INSULIN ASPART (NovoLOG) 100 UNIT/ML VIAL SQ SCH ×4 (06:21→21:05)
[2019-08-02] MEDS: IPRATROPIUM-ALBUTEROL 3 ML NEB INHALATION SCH ×4 (09:12→19:14)
[2019-08-02] MEDS: SEVELAMER 800 MG TAB PO SCH ×3 (09:41→17:34)
[2019-08-02] MEDS: CALCIUM ACETATE 667 MG TAB PO SCH ×3 (09:41→17:34)
[2019-08-02] MEDS: PANTOPRAZOLE 40 MG TABLET PO SCH (09:41)
[2019-08-02] MEDS: MAGNESIUM HYDROXIDE 2,400 MG/10 ML CUP PO SCH (09:42)
[2019-08-02] MEDS: LIDOCAINE 5% PATCH TOPICAL SCH (09:45)
--- NOTE | 2019-08-02 11:32 | P.PN ---
Subjective Progress Note Date: 08/02/19 Seen and examined for the follow-up of acute kidney injury on dialysis. Had dialysis yesterday tolerated well. Objective - Vital Signs Vital signs: Vital Signs Temp 98.8 F 08/02/19 04:45 Pulse 100 08/02/19 09:25 Resp 16 08/02/19 04:45 BP 126/84 08/02/19 04:45 Pulse Ox 95 08/02/19 04:45 Intake & Output 08/01/19 08/02/19 08/02/19 18:59 06:59 18:59 Intake Total 840 350 450 Output Total 3090 235 600 Balance -2250 115 -150 Weight 177.1 kg Intake: IV 0 40 0.9 0 Invasive Line 8 40 Oral 840 450 Blood Product 0 310 Rc As-1 Unit 0 310 [id number] Output: Drainage 90 95 Right Abdomen 90 95 Urine 80 600 Stool 60 Hemodialysis 3000 Other: Voiding Method Urinal Urinal # Voids 1 # Bowel Movements 1 ABP, PAP, CO, CI - Last Documented Arterial Blood Pressure 96/53 - Exam No acute distress S1-S2 heard, right jugular permacath Decreased breath sounds Trace edema - Labs CBC & Chem 7: 08/02/19 05:32 08/02/19 05:32 Labs: Abnormal Lab Results - Last 24 Hours (Table) 08/01/19 08/01/19 08/01/19 Range/Units 10:15 17:04 20:28 WBC (3.8-10.6) k/uL RBC (4.30-5.90) m/uL Hgb (13.0-17.5) gm/dL Hct (39.0-53.0) % Neutrophils # (1.3-7.7) k/uL Lymphocytes # (1.0-4.8) k/uL Monocytes # (0-1.0) k/uL Sodium (137-145) mmol/L BUN (9-20) mg/dL Creatinine (0.66-1.25) mg/dL Glucose (74-99) mg/dL POC Glucose (mg/dL) 157 H 120 H (75-99) mg/dL Alkaline Phosphatase (38-126) U/L Total Protein (6.3-8.2) g/dL Albumin (3.5-5.0) g/dL Crossmatch See Detail 08/02/19 08/02/19 08/02/19 Range/Units 05:32 05:32 06:05 WBC 17.8 H (3.8-10.6) k/uL RBC 3.00 L (4.30-5.90) m/uL Hgb 9.0 L D (13.0-17.5) gm/dL Hct 28.4 L (39.0-53.0) % Neutrophils # 15.0 H (1.3-7.7) k/uL Lymphocytes # 0.8 L (1.0-4.8) k/uL Monocytes # 1.1 H (0-1.0) k/uL Sodium 134 L (137-145) mmol/L BUN 62 H (9-20) mg/dL Creatinine 4.25 H (0.66-1.25) mg/dL Glucose 124 H (74-99) mg/dL POC Glucose (mg/dL) 119 H (75-99) mg/dL Alkaline Phosphatase 257 H (38-126) U/L Total Protein 6.0 L (6.3-8.2) g/dL Albumin 3.2 L (3.5-5.0) g/dL Crossmatch Assessment and Plan Assessment: #1 acute kidney injury dialysis dependent secondary to ischemic ATN from septic shock. Baseline creatinine 1.0 MG per DL with a peak creatinine of 8.0 MG per DL. #2 volume overload on dialysis #3 severe acute pancreatitis status post cholecystectomy #4 metabolic acidosis, improved with dialysis #5 hyperkalemia improved with dialysis Plan: #1 hemodialysis yesterday and plan for tomorrow. Goal UF of 2.5 L #2 avoid nephrotoxic agents and hypotensive episodes #3 supportive care
[2019-08-02 12:06] LABS: Glucose,Whole Blood 147 mg/dL (75-99)
--- NOTE | 2019-08-02 14:39 | P.PN ---
Subjective Progress Note Date: 08/02/19 CHIEF COMPLAINT:Gallstone pancreatitis HISTORY OF PRESENT ILLNESS: The patient is a 54-year-old male who presented with sepsis including acute gallstone pancreatitis now resolved. He is status post open cholecystectomy. No reports of abdominal pain. He does complain of severe lower back pain. "I cannot sleep in the bed." He also reports mild right upper abdominal pain at his MARICHUY location. He is tolerating diet. ROS: No reports of nausea and vomiting. No fevers or chills. No new chest pain. PHYSICAL EXAM: VITAL SIGNS: Reviewed CONSTITUTIONAL: Well developed and in no acute distress. EYES: Conjuctivae without sclera icterus. Extraocular movements grossly intact. HEAD, EARS, NOSE, THROAT: Moist buccal mucosa. Head is atraumatic, normocephalic. Hears conversational speech. No nasal drainage. NECK: Supple. No thyroidomegaly. RESPIRATORY: Non-labored respirations and equal bilateral excursions. CARDIOVASCULAR: Palpable 2+ radial pulses. Tachycardic ABDOMEN: Soft. No peritonitis. Chicho-Keller drain serous drainage. No cellulitis at MARICHUY site. Dressing clean, dry and intact. MUSCULOSKELETAL: No gross deformity of the lower extremities noted. No clubbing. No cyanosis. SKIN: Good skin turgor. Well perfused. NEUROLOGIC: Cranial nerves I through XII grossly intact. No focal or lateralizing signs. PSYCH: Appropriate affect. Alert and oriented to person, place and time. CLINICAL LABS: White blood cell count persistently elevated increased from 13,000 to 17,000. Hemoglobin elevated from 6.9-9.0 after 1 unit blood transfusion. Creatinine improving to 6.9-4.25 with moderate improvement last 3 weeks ASSESSMENT: 1. Sepsis from gallstone pancreatitis 2. Acute kidney failure now on dialysis 3. Acute symptomatic gallstones status post open cholecystectomy 4. Severe back pain 5. Chronic narcotic use PLAN: 1. May benefit from assessment for lower back pain including additional studies. Consultation to orthopedic advised 2. In the interim, pain management advised as he requires scheduled 2 mg Dilaudid for back pain 3. Continue MARICHUY drain 4. Recommend pain management for oral pain med alternatives with his renal failure. Objective - Vital Signs Vital signs: Vital Signs Temp 98.8 F 08/02/19 04:45 Pulse 100 08/02/19 09:25 Resp 16 08/02/19 04:45 BP 126/84 08/02/19 04:45 Pulse Ox 95 08/02/19 04:45 Intake & Output 08/01/19 08/02/19 08/02/19 18:59 06:59 18:59 Intake Total 840 350 450 Output Total 3090 235 Balance -2250 115 450 Weight 177.1 kg Intake: IV 0 40 0.9 0 Invasive Line 8 40 Oral 840 450 Blood Product 0 310 Rc As-1 Unit 0 310 [id number] Output: Drainage 90 95 Right Abdomen 90 95 Urine 80 Stool 60 Hemodialysis 3000 Other: Voiding Method Urinal Urinal # Voids 1 # Bowel Movements 1 ABP, PAP, CO, CI - Last Documented Arterial Blood Pressure 96/53 - Labs CBC & Chem 7: 08/02/19 05:32 08/02/19 05:32 Labs: Abnormal Lab Results - Last 24 Hours (Table) 08/01/19 08/01/19 08/01/19 Range/Units 10:15 11:10 17:04 WBC (3.8-10.6) k/uL RBC (4.30-5.90) m/uL Hgb (13.0-17.5) gm/dL Hct (39.0-53.0) % Neutrophils # (1.3-7.7) k/uL Lymphocytes # (1.0-4.8) k/uL Monocytes # (0-1.0) k/uL Sodium (137-145) mmol/L BUN (9-20) mg/dL Creatinine (0.66-1.25) mg/dL Glucose (74-99) mg/dL POC Glucose (mg/dL) 123 H 157 H (75-99) mg/dL Alkaline Phosphatase (38-126) U/L Total Protein (6.3-8.2) g/dL Albumin (3.5-5.0) g/dL Crossmatch See Detail 08/01/19 08/02/19 08/02/19 Range/Units 20:28 05:32 05:32 WBC 17.8 H (3.8-10.6) k/uL RBC 3.00 L (4.30-5.90) m/uL Hgb 9.0 L D (13.0-17.5) gm/dL Hct 28.4 L (39.0-53.0) % Neutrophils # 15.0 H (1.3-7.7) k/uL Lymphocytes # 0.8 L (1.0-4.8) k/uL Monocytes # 1.1 H (0-1.0) k/uL Sodium 134 L (137-145) mmol/L BUN 62 H (9-20) mg/dL Creatinine 4.25 H (0.66-1.25) mg/dL Glucose 124 H (74-99) mg/dL POC Glucose (mg/dL) 120 H (75-99) mg/dL Alkaline Phosphatase 257 H (38-126) U/L Total Protein 6.0 L (6.3-8.2) g/dL Albumin 3.2 L (3.5-5.0) g/dL Crossmatch 08/02/19 Range/Units 06:05 WBC (3.8-10.6) k/uL RBC (4.30-5.90) m/uL Hgb (13.0-17.5) gm/dL Hct (39.0-53.0) % Neutrophils # (1.3-7.7) k/uL Lymphocytes # (1.0-4.8) k/uL Monocytes # (0-1.0) k/uL Sodium (137-145) mmol/L BUN (9-20) mg/dL Creatinine (0.66-1.25) mg/dL Glucose (74-99) mg/dL POC Glucose (mg/dL) 119 H (75-99) mg/dL Alkaline Phosphatase (38-126) U/L Total Protein (6.3-8.2) g/dL Albumin (3.5-5.0) g/dL Crossmatch Assessment and Plan (1) Acute gallstone pancreatitis Current Visit: Yes Status: Acute Code(s): K85.10 - BILIARY ACUTE PANCREATITIS WITHOUT NECROSIS OR INFECTION SNOMED Code(s): 145258271 (2) Sepsis Current Visit: Yes Status: Acute Code(s): A41.9 - SEPSIS, UNSPECIFIED ORGANISM SNOMED Code(s): 25294010 (3) Acute cholecystitis due to biliary calculus Current Visit: Yes Status: Acute Code(s): K80.00 - CALCULUS OF GALLBLADDER W ACUTE CHOLECYST W/O OBSTRUCTION SNOMED Code(s): 08076160026124 (4) Acute renal failure on dialysis Current Visit: Yes Status: Acute Code(s): N17.9 - ACUTE KIDNEY FAILURE, UNSPECIFIED; Z99.2 - DEPENDENCE ON RENAL DIALYSIS SNOMED Code(s): 452654926035910 (5) Narcotic dependence Current Visit: Yes Status: Acute Code(s): F11.20 - OPIOID DEPENDENCE, UNCOMPLICATED SNOMED Code(s): 239205665 (6) Chronic lower back pain Current Visit: Yes Status: Acute Code(s): M54.5 - LOW BACK PAIN; G89.29 - OTHER CHRONIC PAIN SNOMED Code(s): 722531293
[2019-08-02 17:06] LABS: Glucose,Whole Blood 113 mg/dL (75-99)
[2019-08-02] MEDS: FLUCONAZOLE 100 MG TAB PO SCH (17:34)
[2019-08-02 20:38] LABS: Glucose,Whole Blood 159 mg/dL (75-99)
[2019-08-02] MEDS: MELATONIN 3 MG TABLET PO PRN (21:04)
--- NOTE | 2019-08-02 22:24 | PN ---
PROGRESS NOTE DATE OF SERVICE: 08/02/2019. REASON FOR FOLLOWUP: Leukocytosis. INTERVAL HISTORY: The patient is currently afebrile. Patient has been breathing comfortably. Patient is complaining of pain in his low back area. Currently no open wound or drainage. Denies any chest pain. No shortness of breath. No cough. PHYSICAL EXAMINATION: Blood pressure 130/80 with a pulse of 102, temperature 98.6, 99% on room air. General description is a middle-aged male up in the chair in no distress. Respiratory system: Unlabored breathing. Decreased breath sounds in the bases. No wheeze. Heart S1, S2. Regular rate and rhythm. Abdomen soft, no tenderness. LABS: White blood count 17.8. DIAGNOSTIC IMPRESSION AND PLAN: Patient with leukocytosis with mild weakness. Patient did have a gallstone pancreatitis status post open cholecystectomy and pancreatic pseudocyst. The patient's white count did show a downward trend but is up today with no definite occult focus. The patient is currently not running any fever as the patient has been exposed to multiple antibiotics. In case of yeast infection we will add Diflucan and continue vancomycin. Repeat CBC tomorrow. Monitor clinical course closely. Continue supportive care. MMODL / IJN: [id number] /
--- NOTE | 2019-08-03 05:51 | PN ---
PROGRESS NOTE DATE OF SERVICE: 08/02/2019 This 54-year-old gentleman admitted with gallstone pancreatitis and cholecystitis, choledocholithiasis, also sepsis. The patient had acute hypoxic respiratory failure also. Patient also had pancreatic pseudocyst. The patient being closely monitored at this time. The patient is followed by Surgery as well as Nephrology also. The patient also had renal failure, which has worsened up to 4.25. PAST MEDICAL HISTORY: Reviewed. REVIEW OF SYSTEMS: CARDIOVASCULAR SYSTEM: No angina. RESPIRATORY SYSTEM: As mentioned earlier. GI: As mentioned earlier. : No dysuria. NERVOUS SYSTEM: No numbness or weakness. MEDICATIONS: Current medications are reviewed include: 1. Tylenol p.r.n. 2. Artemas 10 mg q.6 p.r.n. 3. DuoNeb q.i.d. and p.r.n. 4. PhosLo 1334 mg p.o. t.i.d. 5. Tums. 6. Aranesp 12.5 mg q.7 days. 7. Diflucan 100 mg p.o. daily. 8. Heparin 5000 subcu q.8h. 9. Dilaudid. 10.Lidoderm. 11.Milk of magnesia. 12.Melatonin 3 mg at bedtime p.r.n. 13.ProAmatine. 14.Narcan. 15.Zofran. 16.Protonix. 17.Renvela. Doses are reviewed. PHYSICAL EXAMINATION: Patient is alert and oriented x2. Pulse is 112, blood pressure is 157/85, respirations 16, temperature 98.4, pulse ox 97% on room air. HEENT: Conjunctivae normal. NECK: No jugular venous distention. CARDIOVASCULAR: S1, S2 muffled. RESPIRATORY: Breath sounds diminished at the bases. Scattered rhonchi and crackles. ABDOMEN: Soft, nontender. LEGS: No edema. No swelling. NERVOUS SYSTEM: No focal deficits. LABS: WBC 17.8, hemoglobin 9.8. Creatinine is 4.25. ASSESSMENT: 1. Acute gallstone pancreatitis with acute cholecystitis, choledocholithiasis, status post open cholecystectomy with possible sepsis, present on admission. 2. Acute hypoxic respiratory failure secondary to above, status post mechanical ventilation. 3. Pancreatic pseudocyst. 4. Gait dysfunction. 5. Acute kidney injury with acute tubular necrosis requiring hemodialysis. 6. Hypertension. 7. History of hearing difficulty. 8. Hyponatremia. 9. Hypoalbuminemia with mild to moderate protein malnutrition. 10.Increased WBC. 11.Anemia of chronic disease. 12.Obesity with body mass index of 13.History of hypertension. 14.History of nicotine dependence. 15.FULL CODE. RECOMMENDATIONS AND DISCUSSION: This 54-year-old gentleman who presented with multiple complex medical issues, we will monitor the patient closely. Continue the current medications. Continue symptomatic treatment. Otherwise, at this time, DVT prophylaxis, PT, OT evaluation, possible ECF rehab. Guarded prognosis because of multiple complex medical issues. Further recommendations to follow. Closely follow with multiple consultants. BEAU / NARINDER: [id number] / [place]
[2019-08-03] MEDS: SEVELAMER 800 MG TAB PO SCH ×4 (05:54→17:52)
[2019-08-03] MEDS: CALCIUM ACETATE 667 MG TAB PO SCH ×4 (05:54→17:52)
[2019-08-03] MEDS: HYDROmorphone 0.5 MG/0.5 ML SYRINGE IVP PRN ×4 (05:55→23:36)
[2019-08-03] MEDS: PANTOPRAZOLE 40 MG TABLET PO SCH (05:55)
[2019-08-03 06:10] LABS: Glucose,Whole Blood 117 mg/dL (75-99)
[2019-08-03] MEDS: INSULIN ASPART (NovoLOG) 100 UNIT/ML VIAL SQ SCH ×4 (06:16→21:31)
[2019-08-03] MEDS: IPRATROPIUM-ALBUTEROL 3 ML NEB INHALATION SCH ×4 (07:22→19:16)
[2019-08-03] MEDS: metroNIDAZOLE 500 MG TAB PO SCH (07:41)
[2019-08-03 08:41] LABS: Calcium 8.8 mg/dL (8.4-10.2); Potassium 4.5 mmol/L (3.5-5.1)
[2019-08-03] MEDS: HEPARIN SODIUM,PORCINE 5,000 UNIT/ML 1 ML VIAL SQ SCH ×3 (10:00→21:30)
[2019-08-03 10:05] LABS: Albumin 3.1 g/dL (3.5-5.0); Bilirubin, Delta 0.6 mg/dL (0.0-0.2); Bilirubin,Unconjugated 0.1 mg/dL (0.0-1.1); Total Bilirubin 0.7 mg/dL (0.2-1.3); Total Protein 5.7 g/dL (6.3-8.2)
--- NOTE | 2019-08-03 10:25 | P.PN ---
Subjective Patient is seen in follow-up for acute kidney injury, currently hemodialysis dependent. Urine output near 1 L in the last 24 hours. Edema improved. Currently awake and alert. Denies chest pain or shortness of breath. Complains of pain in his lower back. Vital signs are stable. General: The patient appeared well nourished and normally developed. Intubated. HEENT: Head exam is unremarkable. Neck is without jugular venous distension. LUNGS: Lungs are clear to auscultation and percussion. Breath sounds decreased. HEART: Rate and Rhythm are regular. First and second heart sounds normal. No murmurs, rubs or gallops. ABDOMEN: Bowel sounds decreased. EXTREMITITES: 1+ edema. Objective - Vital Signs Vital signs: Vital Signs Temp 97.8 F 08/03/19 08:23 Pulse 111 H 08/03/19 08:23 Resp 18 08/03/19 08:23 BP 134/78 08/03/19 08:23 Pulse Ox 98 08/03/19 08:23 Intake & Output 08/02/19 08/03/19 08/03/19 18:59 06:59 18:59 Intake Total 1020 180 Output Total 1080 520 Balance -60 -520 180 Weight 169.2 kg Intake: IV 60 Invasive Line 8 60 Oral 960 180 Output: Drainage 370 Right Abdomen 370 Urine 900 150 Stool 180 Other: Voiding Method Urinal Urinal Urinal # Voids 1 ABP, PAP, CO, CI - Last Documented Arterial Blood Pressure 96/53 - Labs CBC & Chem 7: 08/02/19 05:32 08/03/19 06:18 Labs: Abnormal Lab Results - Last 24 Hours (Table) 08/02/19 08/02/19 08/02/19 Range/Units 12:04 17:05 20:37 Sodium (137-145) mmol/L Chloride (98-107) mmol/L Carbon Dioxide (22-30) mmol/L BUN (9-20) mg/dL Creatinine (0.66-1.25) mg/dL Glucose (74-99) mg/dL POC Glucose (mg/dL) 147 H 113 H 159 H (75-99) mg/dL Delta Bilirubin (0.0-0.2) mg/dL Alkaline Phosphatase (38-126) U/L Total Protein (6.3-8.2) g/dL Albumin (3.5-5.0) g/dL 08/03/19 08/03/19 Range/Units 06:09 06:18 Sodium 132 L (137-145) mmol/L Chloride 97 L (98-107) mmol/L Carbon Dioxide 21 L (22-30) mmol/L BUN 83 H (9-20) mg/dL Creatinine 4.83 H (0.66-1.25) mg/dL Glucose 120 H (74-99) mg/dL POC Glucose (mg/dL) 117 H (75-99) mg/dL Delta Bilirubin 0.6 H (0.0-0.2) mg/dL Alkaline Phosphatase 228 H (38-126) U/L Total Protein 5.7 L (6.3-8.2) g/dL Albumin 3.1 L (3.5-5.0) g/dL Assessment and Plan Plan: Assessment: 1. Acute kidney injury secondary to ATN secondary to septic shock, currently hemodialysis dependent. Started on hemodialysis July 15. Baseline creatinine is near 1 and peaked at greater than 8 this admission. Nonoliguric. 2. Volume overload. Partially due to third spacing due to hypoalbuminemia. Improving with UF. 3. Severe acute pancreatitis. ERCP was attempted earlier this admission. Status post open cholecystectomy on July 17. 4. Hyperphosphatemia secondary to acute kidney injury maintained on PhosLo and Renvela. Better. 5. Ileus, s/p TPN. 6. Metabolic acidosis secondary to acute kidney injury. Improved with dialysis . 7. Hyperkalemia secondary to acute kidney injury and metabolic acidosis. Stable. 8. Hypervolemic hyponatremia. Stable. 9. Status post permacath placement July 28. Plan: Currently seen while undergoing hemodialysis.. Next treatment on Wednesday. Avoid nephrotoxins. Continue to monitor renal function and urine output. sales advisory manager following to set up outpatient hemodialysis. Will monitor for renal recovery outpatient.
--- NOTE | 2019-08-03 11:12 | P.PN ---
<Cristina Sanderson Jovi - Last Filed: 08/03/19 11:06> Subjective Progress Note Date: 08/03/19 CHIEF COMPLAINT: Abdominal pain HISTORY OF PRESENT ILLNESS: Patient is status post open cholecystectomy. Patient examined this morning. He is undergoing hemodialysis. He complains of back pain. He is receiving IV narcotics. He denies abdominal pain. Tolerating diet. Denies nausea or vomiting. Passing flatus. MARICHUY drain with bile output this morning which is a new finding. PHYSICAL EXAM: VITAL SIGNS: Reviewed GENERAL: Well-developed in no acute distress. HEENT: No sclera icterus. Extraocular movements grossly intact. Moist buccal mucosa. Head is atraumatic, normocephalic. Hears conversational speech. No nasal drainage. NECK: Supple without lymphadenopathy. CHEST: Non-labored respirations and equal bilateral excursions. CARDIOVASCULAR: Regular rate with regular rhythm. Palpable 2+ radial pulses. ABDOMEN: Soft. Nondistended. Dressing CDI. MARICHUY with bile drainage. MUSCULOSKELETAL: No clubbing or cyanosis. NEUROLOGIC: No focal or lateralizing signs. Cranial nerves II through XII grossly intact. PSYCH: Appropriate affect. Alert and oriented. SKIN: Well perfused. Good skin turgor. ASSESSMENT: 1. Abdominal pain 2. Cholelithiasis, s/p open cholecystectomy 3. Pancreatitis 4. Hyperbilirubinemia 5. Transaminitis 6. Acute renal failure, on hemodialysis 7. Suspected bile leak PLAN: Patient with suspected bile leak this morning. Obtain CBC and LFTs. CT abdomen pelvis with oral contrast. HIDA scan to confirm bile leak. Re-consult GI. Nurse practitioner note has been reviewed by physician. Signing provider agrees with the documented findings, assessment, and plan of care. Objective - Vital Signs Vital signs: Vital Signs Temp 97.8 F 08/03/19 08:23 Pulse 111 H 08/03/19 08:23 Resp 18 08/03/19 08:23 BP 134/78 08/03/19 08:23 Pulse Ox 98 08/03/19 08:23 Intake & Output 08/02/19 08/03/19 08/03/19 18:59 06:59 18:59 Intake Total 1020 180 Output Total 1080 520 Balance -60 -520 180 Weight 169.2 kg Intake: IV 60 Invasive Line 8 60 Oral 960 180 Output: Drainage 370 Right Abdomen 370 Urine 900 150 Stool 180 Other: Voiding Method Urinal Urinal Urinal # Voids 1 ABP, PAP, CO, CI - Last Documented Arterial Blood Pressure 96/53 - Labs CBC & Chem 7: 08/02/19 05:32 08/03/19 06:18 Labs: Abnormal Lab Results - Last 24 Hours (Table) 08/02/19 08/02/19 08/02/19 Range/Units 12:04 17:05 20:37 Sodium (137-145) mmol/L Chloride (98-107) mmol/L Carbon Dioxide (22-30) mmol/L BUN (9-20) mg/dL Creatinine (0.66-1.25) mg/dL Glucose (74-99) mg/dL POC Glucose (mg/dL) 147 H 113 H 159 H (75-99) mg/dL Delta Bilirubin (0.0-0.2) mg/dL Alkaline Phosphatase (38-126) U/L Total Protein (6.3-8.2) g/dL Albumin (3.5-5.0) g/dL 08/03/19 08/03/19 Range/Units 06:09 06:18 Sodium 132 L (137-145) mmol/L Chloride 97 L (98-107) mmol/L Carbon Dioxide 21 L (22-30) mmol/L BUN 83 H (9-20) mg/dL Creatinine 4.83 H (0.66-1.25) mg/dL Glucose 120 H (74-99) mg/dL POC Glucose (mg/dL) 117 H (75-99) mg/dL Delta Bilirubin 0.6 H (0.0-0.2) mg/dL Alkaline Phosphatase 228 H (38-126) U/L Total Protein 5.7 L (6.3-8.2) g/dL Albumin 3.1 L (3.5-5.0) g/dL <Chio Benavidez - Last Filed: 08/03/19 22:56> Subjective CT independently reviewed with large fluid collection at pancreas. Also HIDA independently reviewed with radio tracer existing via the MARICHUY drain. Agree with GI consult for further assessment including evaluation for CBD stent and pancreatic duct assessment. Objective - Vital Signs Vital signs: Vital Signs Temp 98.7 F 08/03/19 20:00 Pulse 111 H 08/03/19 20:00 Resp 18 08/03/19 20:00 BP 136/84 08/03/19 20:00 Pulse Ox 96 08/03/19 16:29 Intake & Output 08/03/19 08/03/19 08/04/19 06:59 18:59 06:59 Intake Total 300 Output Total 520 2175 220 Balance -520 -3525 -220 Weight 169.2 kg Intake: Oral 300 Output: Drainage 370 665 160 Right Abdomen 370 665 160 Urine 150 400 Stool 60 60 Hemodialysis 2700 Other: Voiding Method Urinal Urinal Urinal # Voids 1 1 # Bowel Movements 1 ABP, PAP, CO, CI - Last Documented Arterial Blood Pressure 96/53 - Labs CBC & Chem 7: 08/03/19 06:18 08/03/19 06:18 Labs: Abnormal Lab Results - Last 24 Hours (Table) 08/03/19 08/03/19 08/03/19 Range/Units 06:09 06:18 06:18 WBC 17.9 H (3.8-10.6) k/uL RBC 2.87 L (4.30-5.90) m/uL Hgb 8.8 L (13.0-17.5) gm/dL Hct 27.4 L (39.0-53.0) % Neutrophils # 15.4 H (1.3-7.7) k/uL Lymphocytes # 0.8 L (1.0-4.8) k/uL Sodium 132 L (137-145) mmol/L Chloride 97 L (98-107) mmol/L Carbon Dioxide 21 L (22-30) mmol/L BUN 83 H (9-20) mg/dL Creatinine 4.83 H (0.66-1.25) mg/dL Glucose 120 H (74-99) mg/dL POC Glucose (mg/dL) 117 H (75-99) mg/dL Delta Bilirubin 0.6 H (0.0-0.2) mg/dL Alkaline Phosphatase 228 H (38-126) U/L Total Protein 5.7 L (6.3-8.2) g/dL Albumin 3.1 L (3.5-5.0) g/dL 08/03/19 08/03/19 08/03/19 Range/Units 12:21 17:00 20:28 WBC (3.8-10.6) k/uL RBC (4.30-5.90) m/uL Hgb (13.0-17.5) gm/dL Hct (39.0-53.0) % Neutrophils # (1.3-7.7) k/uL Lymphocytes # (1.0-4.8) k/uL Sodium (137-145) mmol/L Chloride (98-107) mmol/L Carbon Dioxide (22-30) mmol/L BUN (9-20) mg/dL Creatinine (0.66-1.25) mg/dL Glucose (74-99) mg/dL POC Glucose (mg/dL) 120 H 117 H 143 H (75-99) mg/dL Delta Bilirubin (0.0-0.2) mg/dL Alkaline Phosphatase (38-126) U/L Total Protein (6.3-8.2) g/dL Albumin (3.5-5.0) g/dL Assessment and Plan (1) Acute gallstone pancreatitis Current Visit: Yes Status: Acute Code(s): K85.10 - BILIARY ACUTE PANCREATITIS WITHOUT NECROSIS OR INFECTION SNOMED Code(s): 925889517 (2) Sepsis Current Visit: Yes Status: Acute Code(s): A41.9 - SEPSIS, UNSPECIFIED ORGANISM SNOMED Code(s): 26037873 (3) Acute cholecystitis due to biliary calculus Current Visit: Yes Status: Acute Code(s): K80.00 - CALCULUS OF GALLBLADDER W ACUTE CHOLECYST W/O OBSTRUCTION SNOMED Code(s): 30212494436078 (4) Acute renal failure on dialysis Current Visit: Yes Status: Acute Code(s): N17.9 - ACUTE KIDNEY FAILURE, UNSPECIFIED; Z99.2 - DEPENDENCE ON RENAL DIALYSIS SNOMED Code(s): 469109510512493 (5) Narcotic dependence Current Visit: Yes Status: Acute Code(s): F11.20 - OPIOID DEPENDENCE, UNCOMPLICATED SNOMED Code(s): 603830828 (6) Chronic lower back pain Current Visit: Yes Status: Acute Code(s): M54.5 - LOW BACK PAIN; G89.29 - OTHER CHRONIC PAIN SNOMED Code(s): 256051959
[2019-08-03 11:20] LABS: Basophils # (A) 0.1 k/uL (0-0.2); Basophils % (A) 1 %; Eosinophils # (A) 0.4 k/uL (0-0.7); Eosinophils % (A) 2 %; HCT 27.4 % (39.0-53.0); HGB 8.8 gm/dL (13.0-17.5); Hypochromasia Moderate; Lymphocytes # (A) 0.8 k/uL (1.0-4.8); Lymphocytes % (A) 5 %; MCH 30.5 pg (25.0-35.0); MCV 95.5 fL (80.0-100.0); Mean Platelet Volume 9.2; Monocytes % (A) 5 %; Neutrophils # (A) 15.4 k/uL (1.3-7.7); Neutrophils % (A) 86 %; Platelet Count 317 k/uL (150-450); Poikilocytosis Slight; RBC 2.87 m/uL (4.30-5.90); RDW 14.1 % (11.5-15.5); WBC 17.9 k/uL (3.8-10.6)
[2019-08-03] MEDS: MAGNESIUM HYDROXIDE 2,400 MG/10 ML CUP PO SCH (11:52)
[2019-08-03] MEDS: LIDOCAINE 5% PATCH TOPICAL SCH (11:52)
[2019-08-03] MEDS: IOPAMIDOL CONTRAST (ORAL USE) VIAL PO PRN ×2 (11:53→13:09)
[2019-08-03] MEDS: FLUCONAZOLE 100 MG TAB PO SCH (11:54)
[2019-08-03 12:23] LABS: Glucose,Whole Blood 120 mg/dL (75-99)
--- NOTE | 2019-08-03 14:13 | CT ---
EXAMINATION TYPE: CT abdomen pelvis wo con DATE OF EXAM: 08/03/2019 COMPARISON: CT 07/25/2019 HISTORY: 54-year-old male Suspected bile leak, s/p open cholecystectomy. CT DLP: 1256 mGycm. Automated exposure control for dose reduction was used. TECHNIQUE: Contiguous axial scanning of the abdomen and pelvis without IV contrast. Coronal and sagit gayathri reconstructions performed. FINDINGS: Heart normal size. CVC is present tip in the right atrium. Prominent bands of atelectasis in the lowe r lungs without pleural effusion. Noncontrast appearance of the liver shows no gross abnormality. Patient status post cholecystectomy w ith some linear hyperdensities along the gallbladder fossa likely surgical material. A surgical drain is present in the right upper quadrant extending along the gallbladder fossa and und ersurface of the left hepatic lobe. There is an enlarging peripancreatic fluid collection spanning the entire width of the pancreas measu ring up to 19.6 cm wide x 10.0 cm AP x 14.6 cm craniocaudal (versus 14.2 x 7.9 x 9.1 cm, previously). There is marked diffuse heterogeneity of the pancreas. Increasing size of intrapancreatic fluid collection in the pancreatic tail measuring 6.2 x 3.0 cm. Fluid collection has marked mass effect onto the stomach flattening it anteriorly against the abdomin al wall. Oral contrast has progressed to the distal third small bowel level. Adrenal glands and kidneys within normal limits. Spleen is enlarged at 16.1 cm, unchanged. Normal appendix. Mild to moderate stool in the right side of the colon and also within the sigmoid co radha. Prostate gland measures 5.3 cm wide. Bladder underdistended. No abnormal fluid collection the pelvis or pelvic lymphadenopathy. Bones: No osseous destructive process. IMPRESSION: 1. Status post cholecystectomy with right upper quadrant surgical drain in place. 2. Enlarging peripancreatic fluid collection spanning the width of the pancreas (19.6 x 10.0 x 14.6 cm versus 14.2 x 7.9 x 9.1 cm, previously). This collection is very large and flattens the stomach ag ainst the anterior abdominal wall. 3. Persistent extensive heterogeneity of the underlying pancreas, probable acute pancreatitis. There is newly developing intrapancreatic fluid collection at the tail measuring 6.2 x 3.0 cm. 4. Stable splenomegaly at 16.1 cm.
--- NOTE | 2019-08-03 15:16 | NM ---
Nuclear medicine hepatobiliary scan. HISTORY: Pain. DOSAGE: The patient received and 5.1 mCi of Technetium 99m Choletec. FINDINGS: There is normal hepatic extraction. The gallbladder been surgically removed. There is selena iary to bowel clearance by 30 minutes. No extravasation of radiotracer. IMPRESSION: 1. Postsurgical change with no evidence to suggest sizable biliary leak.
--- NOTE | 2019-08-03 15:54 | P.PAINCN ---
History of Present Illness - Reason for Consult Consult date: 08/03/19 - History of Present Illness This is a 54-year-old patient referred by Dr. Benavidez with a chief complaint of chronic pain in bilateral low and mid back, without radiation to lower extremities, which has been present for approximately 2 years. He has not had any prior evaluation of this back pain, prior to hospital admission he was not on any medications for this. Patient denies any inciting event. Pain is rated as 210/10. Pain is particularly worse when he is sitting in the chair for dialysis. He does endorse mild abdominal pain as well. Patient's current medications include Tylenol, [place] every 6 when necessarypatient does not seem to be getting this, Dilaudid 0.5 mg every 6 when necessary. Patient denies adverse drug effects from medications and states that only the Dilaudid injec tion seems to be working for him. Patient denies new-onset weakness, bowel/bladder incontinence, or any other signs or symptoms of cauda equina syndrome. There are no signs of acute intoxication, and no indications of medication diversion or overuse. Patient notes that pain worsens significantly with sitting or lying in bed, and improves with medications, particularly Dilaudid Patient has not had surgery. Patient has not had injections previously. Patient has not had physical therapy recently. Of note, his current medical problems include acute pancreatitis, septic shock now resolved, acute kidney injury now hemodialysis dependent, cholecystitis status post cholecystectomy. He has been admitted since 07/11/2019. Physical exam: Vital Signs: Reviewed in EMR GENERAL: in no acute distress, sitting in chair getting hemodialysis PSYCH: Mood and affect is appropriate. Awake, alert, and oriented SKIN: Skin color, texture, turgor normal, no rashes or lesions HEENT: Normocephalic, atraumatic. EOM intact RESP: Respirations are unlabored, no audible wheezing, hemodialysis catheter present in right chest MUSCULOSKELETAL: Bilateral lower extremity strength is normal and symmetric. No atrophy or tone abnormalities are noted. Lumbar spine: Tenderness to palpation over the lumbar spine and paraspinous muscles bilaterally. Buttocks: No pain to palpation over the PSIS Extremities: Peripheral joint ROM is full and pain free without obvious instability or laxity in all four extremities. No edema or skin discolorations noted. NEUR: Bilateral lower extremity coordination and muscle stretch reflexes are physiologic and symmetric. No loss of sensation is noted. Cranial nerves are grossly intact. Imaging: No lumbar imaging present CT abdomen and pelvis done 08/03/2019 shows enlarging peripancreatic fluid collection and persistent heterogeneity of the underlying pancreas, probable acute pancreatitis with newly developing intra-pancreatic fluid collection. Assessment: 1. Acute pancreatitis 2. Status post open cholecystectomy 3. Acute kidney injury, now hemodialysis dependent 4. Chronic low and mid back pain which may be due to various etiologies including acute pancreatitis, lumbar and/or thoracic spondylosis or degenerative disc disease Plan: 1. Investigations: No lumbar imaging available. Given symptoms are located exclusively in lumbar and thoracic area, without radiation to bilateral lower extremities and no symptoms suggestive of cauda equina syndrome as well as current medical comorbidities, patient is not a candidate for interventional pain procedures at this time, would not obtain lumbar spine imaging. 2. Medications: Given currents kidney disease on hemodialysis, medication options are limited. Agree with weaning Dilaudid IV gradually. Would encourage patient to take orally ordered narcotics in place of IV Dilaudid, provided he continues to tolerate by mouth intake. Would start gabapentin 100 mg daily at bedtime, this was discussed with Dr. Carnes, vamp throater who is following. Would not increase the dose given current renal status. Thank you for allowing us to participate in the care of this patient. Please call with questions. Past Medical History Past Medical History: Hearing Disorder / Deafness, Hypertension Additional Past Medical History / Comment(s): HAD A HEART MURMUR WHEN A CHILD- NEVER HEARD ANYTHING AFTER THAT ABOUT IT, SL. HEARLING LOSS YAMILA. EARS History of Any Multi-Drug Resistant Organisms: None Reported Past Surgical History: No Surgical Hx Reported Additional Past Surgical History / Comment(s): Colonoscopy with benign polypectomy Past Anesthesia/Blood Transfusion Reactions: No Reported Reaction Smoking Status: Current some day smoker - Past Family History Father Family Medical History: Coronary Artery Disease (CAD) Additional Family Medical History / Comment(s): Father had 4 vessel CABG Mother Family Medical History: Hypertension Medications and Allergies Home Medications Medication Instructions Recorded Confirmed Type Lisinopril-Hctz 10-12.5 mg 1 tab PO DAILY 05/30/19 07/11/19 History [Zestoretic 10-12.5] Multivitamins, Thera [Multivitamin 1 tab PO DAILY 07/11/19 07/11/19 History (formulary)] Allergies Allergy/AdvReac Type Severity Reaction Status Date / Time amoxicillin Allergy Rash/Hives Verified 07/11/19 08:00 Physical Exam Vitals: Vital Signs Temp Pulse Pulse Resp BP BP Pulse Ox 08/03/19 12:05 98.0 F 118 H 18 160/92 08/03/19 12:00 98.0 F 106 H 18 179/82 94 L 08/03/19 08:23 97.8 F 111 H 18 134/78 98 08/03/19 08:20 18 08/03/19 07:42 104 H 08/03/19 07:22 106 H 97 08/03/19 03:28 98.4 F 104 H 18 129/70 92 L 08/02/19 23:54 98.6 F 102 H 17 135/85 93 L 08/02/19 20:00 99.5 F 105 H 18 133/83 97 08/02/19 16:00 98.4 F 112 H 16 157/85 97 Intake and Output 08/03/19 08/03/19 08/03/19 06:59 14:59 22:59 Intake Total 180 Output Total 520 0118 210 Balance -256 -3111 -210 Intake: Oral 180 Output: Drainage 370 405 150 Right Abdomen 370 405 150 Urine 150 Stool 60 Hemodialysis 2700 Other: Voiding Method Urinal Urinal Urinal # Voids 1 Weight 169.2 kg Results CBC & Chem 7: 08/03/19 06:18 08/03/19 06:18 Labs: Abnormal Lab Results - Last 24 Hours (Table) 08/02/19 08/02/19 08/03/19 Range/Units 17:05 20:37 06:09 WBC (3.8-10.6) k/uL RBC (4.30-5.90) m/uL Hgb (13.0-17.5) gm/dL Hct (39.0-53.0) % Neutrophils # (1.3-7.7) k/uL Lymphocytes # (1.0-4.8) k/uL Sodium (137-145) mmol/L Chloride (98-107) mmol/L Carbon Dioxide (22-30) mmol/L BUN (9-20) mg/dL Creatinine (0.66-1.25) mg/dL Glucose (74-99) mg/dL POC Glucose (mg/dL) 113 H 159 H 117 H (75-99) mg/dL Delta Bilirubin (0.0-0.2) mg/dL Alkaline Phosphatase (38-126) U/L Total Protein (6.3-8.2) g/dL Albumin (3.5-5.0) g/dL 08/03/19 08/03/19 08/03/19 Range/Units 06:18 06:18 12:21 WBC 17.9 H (3.8-10.6) k/uL RBC 2.87 L (4.30-5.90) m/uL Hgb 8.8 L (13.0-17.5) gm/dL Hct 27.4 L (39.0-53.0) % Neutrophils # 15.4 H (1.3-7.7) k/uL Lymphocytes # 0.8 L (1.0-4.8) k/uL Sodium 132 L (137-145) mmol/L Chloride 97 L (98-107) mmol/L Carbon Dioxide 21 L (22-30) mmol/L BUN 83 H (9-20) mg/dL Creatinine 4.83 H (0.66-1.25) mg/dL Glucose 120 H (74-99) mg/dL POC Glucose (mg/dL) 120 H (75-99) mg/dL Delta Bilirubin 0.6 H (0.0-0.2) mg/dL Alkaline Phosphatase 228 H (38-126) U/L Total Protein 5.7 L (6.3-8.2) g/dL Albumin 3.1 L (3.5-5.0) g/dL PQRS Measure Charge Sheet PQRS Narrative: Smoking Status Current some day smoker Blood Pressure [Right Arm] 160/92 Blood Pressure [Left Arm] 179/82 Blood Pressure 132/76 Pain Intensity [None] 0 Pain Intensity [Generalized] 8 Pain Intensity [Upper Abdomen] 0 Pain Intensity 8 Pain Scale Used Numeric (1 - 10) Scale Used Numeric (1 - 10) Home Medications: Ambulatory Orders Lisinopril-Hctz 10-12.5 mg [Zestoretic 10-12.5] 1 tab PO DAILY 05/30/19 Multivitamins, Thera [Multivitamin (formulary)] 1 tab PO DAILY 07/11/19
[2019-08-03 17:03] LABS: Glucose,Whole Blood 117 mg/dL (75-99)
[2019-08-03 20:30] LABS: Glucose,Whole Blood 143 mg/dL (75-99)
--- NOTE | 2019-08-03 20:56 | PN ---
PROGRESS NOTE DATE OF SERVICE: 08/03/2019 REASON FOR FOLLOWUP: Leukocytosis and possible pancreatic pseudocyst. INTERVAL HISTORY: The patient is currently afebrile. The patient has been mostly complaining of low back pain. The patient denies having any chest pain, shortness of breath, abdominal pain and no diarrhea. PHYSICAL EXAMINATION: Blood pressure 134/81 with a pulse of 109, temperature of 98. He is 93% on room air. General description is a middle-aged male lying in bed in no distress. Respiratory system: Unlabored breathing, decreased breath sounds at the base, no wheeze. Heart S1, S2. Regular rate and rhythm. Abdomen soft, no tenderness. LABS: Hemoglobin 8.1, white count elevated at 17.8, creatinine 4.83. DIAGNOSTIC IMPRESSION AND PLAN: Patient with gallstone pancreatitis status post open cholecystectomy with pancreatitis pseudocyst. The patient now showing persistent worsening of white count. We will start the patient back on cefepime and monitor his clinical course closely. Continue supportive care. MMODL / IJN: [id number] /
[2019-08-03] MEDS: GABAPENTIN 100 MG CAP PO SCH (21:30)
--- NOTE | 2019-08-03 22:03 | PN ---
PROGRESS NOTE DATE OF SERVICE: 08/03/2019 This 54-year-old gentleman admitted with gallstone pancreatitis, choledocholithiasis, also sepsis also. The patient had open cholecystectomy. The patient being closely monitored at this time. The cultures are showing coagulase-negative Staph. At this time, the NG tube has been removed. Creatinine is 4.83 at this time. PAST MEDICAL HISTORY: Reviewed. REVIEW OF SYSTEMS: Cardiovascular system: No angina or palpitations. RESPIRATORY: As mentioned earlier. GASTROINTESTINAL: As mentioned earlier. as mentioned earlier. NERVOUS SYSTEM: No numbness or weakness. CURRENT MEDICATIONS: Reviewed and include: 1. Tylenol 650 q.4 p.r.n. 2. Weston 10 mg q.6h p.r.n. 3. DuoNeb q.i.d. and p.r.n. 4. PhosLo 1335 mg t.i.d. 5. Tums p.o. t.i.d. p.r.n. 6. Ancef 12.5 mg q.7 days. 7. Diflucan 100 mg. 8. Neurontin 100 mg p.o. q.h.s. 9. Heparin 5000 subcu q.8h. 10.Dilaudid p.r.n. 11.NovoLog. 12.Dilaudid. 13.Melatonin. 14.ProAmatine. 15.Narcan. 16.Zofran. 17.Protonix. 18.Renvela. PHYSICAL EXAM: Patient is alert and oriented x3. Pulse is 111. Blood pressure is 135/82, respiration 18, temperature 99 degrees, pulse ox 96% on room air. HEENT: Conjunctivae normal. NECK: No JVD. CARDIOVASCULAR: S1, S2 muffled. RESPIRATIONS: Breath sounds diminished in the bases. Bilateral scattered rhonchi and crackles. ABDOMEN: Soft, obese, nontender. LEGS: No edema. No swelling. CENTRAL NERVOUS SYSTEM: No focal deficits. LABS: WBC 17.9, hemoglobin is 8.8, sodium 132, creatinine 4.8. ASSESSMENT: 1. Acute gallstone pancreatitis with acute cholecystitis, choledocholithiasis, status post open cholecystectomy with possible sepsis present on admission. 2. Acute hypoxic respiratory failure secondary to above, status post mechanical ventilation. 3. Enlarging peripancreatic fluid collection. The most recent CT scan done on 08/03/2019. 4. Persistent elevated WBC. 5. Pancreatic pseudocyst. 6. Gait dysfunction. 7. Acute kidney injury with acute tubular necrosis requiring hemodialysis. 8. Hypertension. 9. History of hearing difficulties. 10.History of hyponatremia. 11.Hypoalbuminemia with mild to moderate protein calorie malnutrition. 12.Increased WBC. 13.Anemia of chronic disease. 14.Obesity with body mass index of 50.6. 15.History of hypertension. 16.History of nicotine dependence. 17.FULL CODE. RECOMMENDATIONS AND DISCUSSION: Recommend to continue current medications, monitoring, management and incentive spirometry. Continue the antibiotics. Continue to monitor WBC closely. Otherwise, recommend outpatient antibiotics per Dr. Hernandez. The CT scan of the abdomen and pelvis was done which showed enlarging peripancreatic fluid collections spanning. Persistent dose also noted. Stable splenomegaly was also noted. However, hepatobiliary nuclear medicine scan showed postoperative changes. No evidence of any stable biliary leak. We will continue to monitor. Guarded prognosis because of multiple complex medical issues. Further recommendations to follow. MMODL / IJN: [id number] / [place]
[2019-08-03] MEDS: MELATONIN 3 MG TABLET PO PRN (23:36)
[2019-08-04] MEDS: HYDROmorphone 0.5 MG/0.5 ML SYRINGE IVP PRN ×2 (05:52→17:32)
[2019-08-04 06:30] LABS: Glucose,Whole Blood 135 mg/dL (75-99)
[2019-08-04] MEDS: CALCIUM ACETATE 667 MG TAB PO SCH ×3 (07:02→18:20)
[2019-08-04] MEDS: SEVELAMER 800 MG TAB PO SCH ×3 (07:03→18:21)
[2019-08-04] MEDS: INSULIN ASPART (NovoLOG) 100 UNIT/ML VIAL SQ SCH ×4 (07:03→20:43)
[2019-08-04] MEDS: PANTOPRAZOLE 40 MG TABLET PO SCH (07:03)
[2019-08-04] MEDS: IPRATROPIUM-ALBUTEROL 3 ML NEB INHALATION SCH ×4 (07:41→20:51)
[2019-08-04 07:57] LABS: Basophils # (A) 0.1 k/uL (0-0.2); Basophils % (A) 1 %; Eosinophils # (A) 0.2 k/uL (0-0.7); Eosinophils % (A) 2 %; HCT 25.5 % (39.0-53.0); HGB 8.1 gm/dL (13.0-17.5); Hypochromasia Slight; Lymphocytes # (A) 0.9 k/uL (1.0-4.8); Lymphocytes % (A) 7 %; MCH 29.8 pg (25.0-35.0); MCHC 31.7 g/dL (31.0-37.0); MCV 93.9 fL (80.0-100.0); Mean Platelet Volume 7.8; Monocytes % (A) 7 %; Neutrophils # (A) 11.7 k/uL (1.3-7.7); Neutrophils % (A) 83 %; Platelet Count 259 k/uL (150-450); RBC 2.72 m/uL (4.30-5.90); WBC 14.1 k/uL (3.8-10.6)
[2019-08-04 08:16] LABS: C Reactive Protein 38.5 mg/L (<10.0); Calcium 8.4 mg/dL (8.4-10.2); Potassium 4.3 mmol/L (3.5-5.1)
[2019-08-04 08:19] LABS: Vancomycin,Random 17.4 ug/mL
[2019-08-04] MEDS: HEPARIN SODIUM,PORCINE 5,000 UNIT/ML 1 ML VIAL SQ SCH ×3 (09:30→20:43)
[2019-08-04] MEDS: CEFEPIME 1 GM in SODIUM CHLORIDE 0.9% 50 ML IVPB SCH (09:32)
[2019-08-04] MEDS ORDERED: IV FLUID CONTINUATION 450 ML IV ONE (10:41)
--- NOTE | 2019-08-04 11:08 | P.PN ---
<Cristina Sanderson Jovi - Last Filed: 08/04/19 11:04> Subjective Progress Note Date: 08/04/19 CHIEF COMPLAINT: Abdominal pain HISTORY OF PRESENT ILLNESS: Patient is status post open cholecystectomy. Patient examined this morning. Patient continues to complain of back pain. He is also reporting abdominal pain this morning. MARICHUY with bile drainage. WBC 14.1. Hemoglobin 8.1. PHYSICAL EXAM: VITAL SIGNS: Reviewed GENERAL: Well-developed in no acute distress. HEENT: No sclera icterus. Extraocular movements grossly intact. Moist buccal mucosa. Head is atraumatic, normocephalic. Hears conversational speech. No nasal drainage. NECK: Supple without lymphadenopathy. CHEST: Non-labored respirations and equal bilateral excursions. CARDIOVASCULAR: Regular rate with regular rhythm. Palpable 2+ radial pulses. ABDOMEN: Soft. Nondistended. Dressing CDI. MARICHUY with bile drainage. MUSCULOSKELETAL: No clubbing or cyanosis. NEUROLOGIC: No focal or lateralizing signs. Cranial nerves II through XII grossly intact. PSYCH: Appropriate affect. Alert and oriented. SKIN: Well perfused. Good skin turgor. ASSESSMENT: 1. Abdominal pain 2. Cholelithiasis, s/p open cholecystectomy 3. Pancreatitis 4. Hyperbilirubinemia 5. Transaminitis 6. Acute renal failure, on hemodialysis 7. Suspected bile leak 8. Large fluid collection at pancreas PLAN: Patient continues to have bile output from MARICHUY drain and now complaining of abdominal pain. GI is on consult with plans for ERCP today for CBD stent placement. Nurse practitioner note has been reviewed by physician. Signing provider agrees with the documented findings, assessment, and plan of care. Objective - Vital Signs Vital signs: Vital Signs Temp 98.7 F 08/04/19 10:42 Pulse 107 H 08/04/19 10:42 Resp 18 08/04/19 10:42 BP 130/73 08/04/19 10:42 Pulse Ox 93 L 08/04/19 10:42 Intake & Output 08/03/19 08/04/19 08/04/19 18:59 06:59 18:59 Intake Total 300 400 Output Total 3825 610 80 Balance -3525 -210 -80 Weight 72.5 kg Intake: Oral 300 400 Output: Drainage 665 290 80 Right Abdomen 665 290 80 Urine 400 200 Stool 60 120 Hemodialysis 2700 Other: Voiding Method Urinal Urinal Urinal # Voids 1 2 # Bowel Movements 1 1 ABP, PAP, CO, CI - Last Documented Arterial Blood Pressure 96/53 - Labs CBC & Chem 7: 08/04/19 07:21 08/04/19 07:21 Labs: Abnormal Lab Results - Last 24 Hours (Table) 08/03/19 08/03/19 08/03/19 Range/Units 06:18 12:21 17:00 WBC 17.9 H (3.8-10.6) k/uL RBC 2.87 L (4.30-5.90) m/uL Hgb 8.8 L (13.0-17.5) gm/dL Hct 27.4 L (39.0-53.0) % Neutrophils # 15.4 H (1.3-7.7) k/uL Lymphocytes # 0.8 L (1.0-4.8) k/uL Sodium (137-145) mmol/L Chloride (98-107) mmol/L BUN (9-20) mg/dL Creatinine (0.66-1.25) mg/dL Glucose (74-99) mg/dL POC Glucose (mg/dL) 120 H 117 H (75-99) mg/dL C-Reactive Protein (<10.0) mg/L 08/03/19 08/04/19 08/04/19 Range/Units 20:28 06:29 07:21 WBC (3.8-10.6) k/uL RBC (4.30-5.90) m/uL Hgb (13.0-17.5) gm/dL Hct (39.0-53.0) % Neutrophils # (1.3-7.7) k/uL Lymphocytes # (1.0-4.8) k/uL Sodium 131 L (137-145) mmol/L Chloride 97 L (98-107) mmol/L BUN 65 H (9-20) mg/dL Creatinine 4.29 H (0.66-1.25) mg/dL Glucose 130 H (74-99) mg/dL POC Glucose (mg/dL) 143 H 135 H (75-99) mg/dL C-Reactive Protein 38.5 H (<10.0) mg/L 08/04/19 Range/Units 07:21 WBC 14.1 H (3.8-10.6) k/uL RBC 2.72 L (4.30-5.90) m/uL Hgb 8.1 L (13.0-17.5) gm/dL Hct 25.5 L (39.0-53.0) % Neutrophils # 11.7 H (1.3-7.7) k/uL Lymphocytes # 0.9 L (1.0-4.8) k/uL Sodium (137-145) mmol/L Chloride (98-107) mmol/L BUN (9-20) mg/dL Creatinine (0.66-1.25) mg/dL Glucose (74-99) mg/dL POC Glucose (mg/dL) (75-99) mg/dL C-Reactive Protein (<10.0) mg/L <Chio Benavidez - Last Filed: 08/05/19 08:27> Subjective ERCP completed with stent placement. Separately, patient has fluid collection at pancreas, suspicious for pseudocyst. Continue hospitalization. Do not discontinue MARICHUY Objective - Vital Signs Vital signs: Vital Signs Temp 98.7 F 08/04/19 20:00 Pulse 110 H 08/05/19 04:00 Resp 18 08/05/19 04:00 BP 131/81 08/04/19 20:00 Pulse Ox 94 L 08/05/19 04:00 Intake & Output 08/04/19 08/05/19 08/05/19 18:59 06:59 18:59 Intake Total 400 200 Output Total 150 1020 Balance 250 -820 Weight 72.5 kg Intake: IV 400 Oral 200 Output: Drainage 150 120 Right Abdomen 150 120 Urine 600 Stool 300 Other: Voiding Method Urinal Urinal # Voids 2 # Bowel Movements 1 1 ABP, PAP, CO, CI - Last Documented Arterial Blood Pressure 96/53 - Labs CBC & Chem 7: 08/05/19 06:50 08/05/19 06:50 Labs: Abnormal Lab Results - Last 24 Hours (Table) 08/04/19 08/04/19 08/04/19 Range/Units 14:20 16:53 20:26 WBC (3.8-10.6) k/uL RBC (4.30-5.90) m/uL Hgb (13.0-17.5) gm/dL Hct (39.0-53.0) % Neutrophils # (1.3-7.7) k/uL Lymphocytes # (1.0-4.8) k/uL Sodium (137-145) mmol/L Chloride (98-107) mmol/L Carbon Dioxide (22-30) mmol/L BUN (9-20) mg/dL Creatinine (0.66-1.25) mg/dL Glucose (74-99) mg/dL POC Glucose (mg/dL) 129 H 123 H 139 H (75-99) mg/dL 08/05/19 08/05/19 08/05/19 Range/Units 06:19 06:50 06:50 WBC 13.1 H (3.8-10.6) k/uL RBC 2.91 L (4.30-5.90) m/uL Hgb 9.0 L (13.0-17.5) gm/dL Hct 27.5 L (39.0-53.0) % Neutrophils # 11.0 H (1.3-7.7) k/uL Lymphocytes # 0.8 L (1.0-4.8) k/uL Sodium 133 L (137-145) mmol/L Chloride 96 L (98-107) mmol/L Carbon Dioxide 21 L (22-30) mmol/L BUN 83 H (9-20) mg/dL Creatinine 4.58 H (0.66-1.25) mg/dL Glucose 113 H (74-99) mg/dL POC Glucose (mg/dL) 132 H (75-99) mg/dL Assessment and Plan (1) Acute gallstone pancreatitis Current Visit: Yes Status: Acute Code(s): K85.10 - BILIARY ACUTE PANCREATITIS WITHOUT NECROSIS OR INFECTION SNOMED Code(s): 264703912 (2) Sepsis Current Visit: Yes Status: Acute Code(s): A41.9 - SEPSIS, UNSPECIFIED ORGANISM SNOMED Code(s): 29645749 (3) Acute cholecystitis due to biliary calculus Current Visit: Yes Status: Acute Code(s): K80.00 - CALCULUS OF GALLBLADDER W ACUTE CHOLECYST W/O OBSTRUCTION SNOMED Code(s): 34697521205583 (4) Acute renal failure on dialysis Current Visit: Yes Status: Acute Code(s): N17.9 - ACUTE KIDNEY FAILURE, UNSPECIFIED; Z99.2 - DEPENDENCE ON RENAL DIALYSIS SNOMED Code(s): 129 285693844739 (5) Narcotic dependence Current Visit: Yes Status: Acute Code(s): F11.20 - OPIOID DEPENDENCE, UNCOMPLICATED SNOMED Code(s): 666461768 (6) Chronic lower back pain Current Visit: Yes Status: Acute Code(s): M54.5 - LOW BACK PAIN; G89.29 - OTHER CHRONIC PAIN SNOMED Code(s): 557419845
[2019-08-04] MEDS: FLUCONAZOLE 100 MG TAB PO SCH (12:32)
[2019-08-04] MEDS: LIDOCAINE 5% PATCH TOPICAL SCH (12:33)
[2019-08-04] MEDS: MAGNESIUM HYDROXIDE 2,400 MG/10 ML CUP PO SCH (12:33)
[2019-08-04] MEDS ORDERED: MIDAZOLAM 2 MG/2 ML VIAL ONE (12:37)
[2019-08-04] MEDS ORDERED: PROPOFOL 10 MG/ML 20 ML VIAL IV ONE (12:37)
[2019-08-04] MEDS ORDERED: LIDOCAINE 1% INJ 10MG/ML (20 ML MDV) ONE (12:37)
[2019-08-04] MEDS ORDERED: SUCCINYLCHOLINE CHLORIDE 100 MG/5 ML SYR IV ONE (12:37)
[2019-08-04] MEDS ORDERED: fentaNYL (PF) 50 MCG/ML 2 ML AMP ONE (12:37)
[2019-08-04] MEDS ORDERED: IOPAMIDOL-300 50ML BTL MISCELLANE ONE (13:11)
--- NOTE | 2019-08-04 13:53 | P.PCN ---
Date of Procedure: 08/04/19 Description of Procedure: Brief history: Patient is a 54-year-old male currently hospitalized for severe complicated gallstone pancreatitis complicated by respiratory failure previously requiring mechanical ventilation currently extubated, as well as acute renal insufficiency requiring hemodialysis. The patient previously underwent open cholecystectomy and was being followed by the surgical service with an increase in bilious output in the MARICHUY yesterday concern was for bile leak. HIDA scan did not show evidence of a leak however patient continued to require frequent emptying of the drain secondary to copious bilious output. ERCP planned for stent placement. Procedure performed: ERCP with cholangiogram, sphincterotomy, balloon sweep of the common bile duct and stent placement Preoperative diagnoses: Biliary leak, gallstone pancreatitis IV sedation per anesthesia Estimated blood loss: Minimal. Procedure: After informed consent was obtained from the patient and after the risks benefits and complications including bleeding perforation and pancreatitis explained in detail the patient was brought into the endoscopy unit. The patient was placed in prone position and IV conscious sedation was administered by anesthesia under continuous monitoring. The Olympus side-viewing duodenoscope was then inserted into the mouth and esophagus intubated without any difficulty. The scope was gradually advanced into the stomach and duodenum. The major papilla was identified without any difficulty. Sphincterotome was used to cannulate the papilla, and a wire was then passed through the sphincterotome into the common bile duct. Cholangiogram was performed with confirmation of CBD intubation and suggestive of a biliary leak with dye pooling in the area of the cystic duct remnant. The sphincterotome was then used to create an 8 mm sphincterotomy. The sphincter tone was then exchanged over a wire for a balloon stone extractor. The balloon was passed into the CBD serially and inflated to 8.5 mm with the CBD swept. Bile was noted but no stones were seen. The balloon extractor was then passed over the wire and exchanged for a 7-Ivorian by 10 cm straight double flanged stent that was advanced and deployed into the CBD. Confirmation with fluoroscopy was performed. The pancreatic duct was not intubated or injected. The patient tolerated the procedure well. Impression: Biliary/bile leak status post cholecystectomy Successful sphincterotomy with cholangiogram with findings consistent with bile leak, sphincterotomy, balloon sweep and placement of a 7-Ivorian by 10 cm CBD stent Recommendations: The findings of this examination were discussed with the patient as well as a family. Okay to resume previous diet. Continue to monitor liver enzymes and output from her MARICHUY drain. Patient will need follow-up in 6-8 weeks for stent removal. Other management per the medical and surgical teams. The GI service will stand by, please call us back with any questions or concerns.
--- NOTE | 2019-08-04 14:04 | FL ---
EXAMINATION TYPE: FL ERCP HISTORY: Fluoroscopy time Impression: 1. Fluoroscopy support of 17 seconds provided to the referring physician.
[2019-08-04 14:22] LABS: Glucose,Whole Blood 129 mg/dL (75-99)
--- NOTE | 2019-08-04 16:52 | P.PN ---
Subjective Progress Note Date: 08/04/19 Principal diagnosis: This is a 54-year-old male who was recently admitted for gallstone pancreatitis, choledocholelithiasis, and sepsis and is being closely monitored. Patient rece ntly underwent an open cholecystectomy and is being closely monitored with surgery as well. Patient is scheduled to undergo an ERCP today with GI. Multiple medical consultations are following. Patient will continue with hemodialysis on the Wednesday, , Wednesday schedule. Review of systems: Cardiovascular: No reports of chest pain or palpitations Respiratory: No reports of shortness of breath or cough GI: No reports of nausea, vomiting, or diarrhea : No reports of dysuria or retention Musculoskeletal: Reports lower back pain Active Medications Acetaminophen (Tylenol Tab) 650 mg PO Q4HR PRN PRN Reason: Fever and/or Mild Pain Last Admin: 08/01/19 21:49 Dose: 650 mg Documented by: Hydrocodone Bitart/Acetaminophen ([place] 10) 1 each PO Q6H PRN PRN Reason: Moderate Pain Last Admin: 08/02/19 21:04 Dose: 1 each Documented by: Albuterol/Ipratropium (Duoneb 0.5 Mg-3 Mg/3 Ml Soln) 3 ml INHALATION RT-QID [facility] Last Admin: 08/04/19 11:13 Dose: Not Given Documented by: Albuterol/Ipratropium (Duoneb 0.5 Mg-3 Mg/3 Ml Soln) 3 ml INHALATION RT-Q2H PRN PRN Reason: Shortness Of Breath Or Wheezing Calcium Acetate (Phoslo) 1,334 mg PO TID-W/MEALS [facility] Last Admin: 08/04/19 14:11 Dose: Not Given Documented by: Calcium Carbonate/Glycine (Tums) 500 mg PO TID PRN PRN Reason: Heartburn Last Admin: 08/01/19 03:52 Dose: 500 mg Documented by: Darbepoetin Mj (Aranesp) 12.5 mcg SQ Q7D [facility] Last Admin: 07/29/19 17:48 Dose: 12.5 mcg Documented by: Fluconazole (Diflucan) 100 mg PO DAILY [facility] Last Admin: 08/04/19 12:32 Dose: Not Given Documented by: Gabapentin (Neurontin) 100 mg PO HS [facility] Last Admin: 08/03/19 21:30 Dose: 100 mg Documented by: Heparin Sodium (Porcine) (Heparin) 5,000 unit SQ Q8HR [facility] Last Admin: 08/04/19 09:30 Dose: Not Given Documented by: Hydromorphone HCl (Dilaudid) 0.5 mg IVP Q6HR PRN PRN Reason: Pain Scale 8 to 10 Last Admin: 08/04/19 05:52 Dose: 0.5 mg Documented by: Cefepime HCl 1 gm/ Sodium (Chloride) 50 mls @ 100 mls/hr IVPB DAILY [facility] Last Admin: 08/04/19 09:32 Dose: 100 mls/hr Documented by: Insulin Aspart (Novolog) 0 unit SQ ACHS [facility]; Protocol Last Admin: 08/04/19 14:11 Dose: Not Given Documented by: Lidocaine (Lidoderm) 1 patch TOPICAL DAILY [facility] Last Admin: 08/04/19 12:33 Dose: Not Given Documented by: Magnesium Hydroxide (Milk Of Magnesia) 2,400 mg PO DAILY [facility] Last Admin: 08/04/19 12:33 Dose: Not Given Documented by: Melatonin (Melatonin) 3 mg PO HS PRN PRN Reason: Insomnia Last Admin: 08/03/19 23:36 Dose: 3 mg Documented by: Midodrine (Proamatine) 10 mg PO DAILY PRN PRN Reason: HYPOTENSION WITH DIALYSIS Last Admin: 07/25/19 12:23 Dose: 10 mg Documented by: Naloxone HCl (Narcan) 0.2 mg IV Q2M PRN PRN Reason: Opioid Reversal Ondansetron HCl (Zofran) 4 mg IVP Q8HR PRN PRN Reason: Nausea And Vomiting Last Admin: 08/02/19 04:51 Dose: 4 mg Documented by: Pantoprazole Sodium (Protonix) 40 mg PO AC-BRKFST [facility] Last Admin: 08/04/19 07:03 Dose: Not Given Documented by: Sevelamer Carbonate (Renvela) 1,600 mg PO TID-W/MEALS [facility] Last Admin: 08/04/19 14:11 Dose: Not Given Documented by: Objective - Vital Signs Vital signs: Vital Signs Temp 100 F H 08/04/19 13:50 Pulse 98 08/04/19 14:20 Resp 16 08/04/19 14:20 BP 135/75 08/04/19 14:20 Pulse Ox 94 L 08/04/19 14:20 Intake & Output 08/03/19 08/04/19 08/04/19 18:59 06:59 18:59 Intake Total 300 400 400 Output Total 3825 610 150 Balance -3525 -210 250 Weight 72.5 kg 72.5 kg Intake: IV 400 Oral 300 400 Output: Drainage 665 290 150 Right Abdomen 665 290 150 Urine 400 200 Stool 60 120 Hemodialysis 2700 Other: Voiding Method Urinal Urinal Urinal # Voids 1 2 # Bowel Movements 1 1 ABP, PAP, CO, CI - Last Documented Arterial Blood Pressure 96/53 - Exam Gen: This is a 54-year-old male lying in bed and appears to be in no acute distress. HEENT: Head is atraumatic, normocephalic. Pupils equal, round. Sclerae is anicteric. NECK: Supple. No JVD. No lymphadenopathy. No thyromegaly. LUNGS: Breath sounds diminished at the bases with a few scattered rhonchi and crackles noted. No intercostal retractions. HEART: S1, S2 are muffled ABDOMEN: Soft. Obese. Bowel sounds are present. No masses. No tenderness. EXTREMITIES: No pedal edema. No calf tenderness. NEUROLOGICAL: Patient is awake, alert and oriented x3. Cranial nerves 2 through 12 are grossly intact. - Labs CBC & Chem 7: 08/04/19 07:21 08/04/19 07:21 Labs: Abnormal Lab Results - Last 24 Hours (Table) 08/03/19 08/03/19 08/04/19 Range/Units 17:00 20:28 06:29 WBC (3.8-10.6) k/uL RBC (4.30-5.90) m/uL Hgb (13.0-17.5) gm/dL Hct (39.0-53.0) % Neutrophils # (1.3-7.7) k/uL Lymphocytes # (1.0-4.8) k/uL Sodium (137-145) mmol/L Chloride (98-107) mmol/L BUN (9-20) mg/dL Creatinine (0.66-1.25) mg/dL Glucose (74-99) mg/dL POC Glucose (mg/dL) 117 H 143 H 135 H (75-99) mg/dL C-Reactive Protein (<10.0) mg/L 08/04/19 08/04/19 08/04/19 Range/Units 07:21 07:21 14:20 WBC 14.1 H (3.8-10.6) k/uL RBC 2.72 L (4.30-5.90) m/uL Hgb 8.1 L (13.0-17.5) gm/dL Hct 25.5 L (39.0-53.0) % Neutrophils # 11.7 H (1.3-7.7) k/uL Lymphocytes # 0.9 L (1.0-4.8) k/uL Sodium 131 L (137-145) mmol/L Chloride 97 L (98-107) mmol/L BUN 65 H (9-20) mg/dL Creatinine 4.29 H (0.66-1.25) mg/dL Glucose 130 H (74-99) mg/dL POC Glucose (mg/dL) 129 H (75-99) mg/dL C-Reactive Protein 38.5 H (<10.0) mg/L Assessment and Plan Assessment: Acute gallstone pancreatitis with acute cholecystitis, choledocholithiasis, status post open cholecystectomy with possible sepsis, present on admission Acute hypoxic respiratory failure secondary to above, status post mechanical ventilation Enlarging pancreatic fluid collection. Most recent computed tomography scan done on 08/03/2019 Persistent elevated white blood count Pancreatic pseudocyst Gait dysfunction Acute kidney injury with acute tubular necrosis requiring hemodialysis Hypertension history of hearing difficulties History of hyponatremia Hypoalbuminemia with mild to moderate protein calorie malnutrition Increased WBC Anemia of chronic disease Obesity with body mass index of 50.6 history of hypertension History of nicotine dependence Full code Recommendations and discussion: Recommend to continue current medications, management, and symptomatic treatment. Will continue to monitor vital signs and labs closely. We'll continue current IV antibiotics. Infectious disease is following along with other multiple medical consultations. Patient should continue with Wednesday//Wednesday hemodialysis schedule. Patient was scheduled to undergo ERCP this morning. Will await report. Due to multiple complex medical issues prognosis is guarded. Further recommendations to follow.
[2019-08-04 16:55] LABS: Glucose,Whole Blood 123 mg/dL (75-99)
--- NOTE | 2019-08-04 19:49 | PN ---
PROGRESS NOTE DATE OF SERVICE: 08/04/2019 REASON FOR FOLLOWUP: Fever and possible ascending cholangitis. INTERVAL HISTORY: The patient was taken to the OR today and the patient is status post ERCP. The patient did have a biliary stent placement for biliary leak. The patient tolerated the procedure. The pain is currently controlled. Did spike a fever of 100 degrees Fahrenheit this afternoon after the procedure. The patient denies having any chest pain, shortness of breath or cough or any worsening abdominal pain. No diarrhea. PHYSICAL EXAMINATION: Blood pressure 135/75 with a pulse of 90. Temperature of 100. He is 94% on 6 L nasal cannula. General description is a middle-aged male lying in bed in no distress. Respiratory system: Unlabored breathing with decreased breath sounds in the bases. No wheeze. Heart S1-S2 regular rate and rhythm. Abdomen soft, no tenderness. EXTREMITIES: No edema of the feet. LABS: Hemoglobin 8.8, white count 14.9, BUN of 65, creatinine 4.29. DIAGNOSTIC IMPRESSION AND PLAN: Patient with a fever in this patient who did have a biliary leak. The patient is status post ERCP and stent placement, now with low-grade fever. Blood cultures will be repeated. Cefepime is on board, restarted this morning to cover for the enteric gram- negative to be likely pathogen resistant response, infection in his clinical course and will monitor closely. MMODL / IJN: [id number] /
[2019-08-04 20:28] LABS: Glucose,Whole Blood 139 mg/dL (75-99)
[2019-08-04] MEDS: GABAPENTIN 100 MG CAP PO SCH (20:42)
[2019-08-04] MEDS: HYDROcodone/APAP 10-325MG 1 EACH TAB PO PRN (20:42)
[2019-08-04] MEDS: MELATONIN 3 MG TABLET PO PRN (20:42)
[2019-08-05] MEDS: HYDROmorphone 0.5 MG/0.5 ML SYRINGE IVP PRN ×4 (01:08→23:25)
[2019-08-05] MEDS: HYDROcodone/APAP 10-325MG 1 EACH TAB PO PRN ×2 (04:07→15:26)
[2019-08-05] MEDS: CALCIUM CARBONATE 500 MG CHEWABLE PO PRN ×3 (04:10→15:31)
[2019-08-05 06:20] LABS: Glucose,Whole Blood 132 mg/dL (75-99)
[2019-08-05] MEDS: INSULIN ASPART (NovoLOG) 100 UNIT/ML VIAL SQ SCH ×4 (07:46→21:19)
[2019-08-05 07:49] LABS: Basophils # (A) 0.1 k/uL (0-0.2); Basophils % (A) 1 %; Eosinophils # (A) 0.2 k/uL (0-0.7); Eosinophils % (A) 1 %; HCT 27.5 % (39.0-53.0); Hypochromasia Slight; Lymphocytes # (A) 0.8 k/uL (1.0-4.8); Lymphocytes % (A) 6 %; MCHC 32.7 g/dL (31.0-37.0); MCV 94.6 fL (80.0-100.0); Mean Platelet Volume 7.4; Monocytes # (A) 0.9 k/uL (0-1.0); Monocytes % (A) 7 %; Neutrophils % (A) 84 %; Platelet Count 329 k/uL (150-450); RBC 2.91 m/uL (4.30-5.90); RDW 13.7 % (11.5-15.5); WBC 13.1 k/uL (3.8-10.6)
[2019-08-05 08:11] LABS: Calcium 8.7 mg/dL (8.4-10.2); Potassium 4.7 mmol/L (3.5-5.1)
[2019-08-05] MEDS: SEVELAMER 800 MG TAB PO SCH ×3 (08:12→21:17)
[2019-08-05] MEDS: CALCIUM ACETATE 667 MG TAB PO SCH ×3 (08:12→21:17)
[2019-08-05] MEDS: CEFEPIME 1 GM in SODIUM CHLORIDE 0.9% 50 ML IVPB SCH (08:13)
[2019-08-05] MEDS: PANTOPRAZOLE 40 MG TABLET PO SCH (08:13)
[2019-08-05] MEDS: HEPARIN SODIUM,PORCINE 5,000 UNIT/ML 1 ML VIAL SQ SCH ×3 (08:13→23:19)
[2019-08-05] MEDS: LIDOCAINE 5% PATCH TOPICAL SCH (08:14)
[2019-08-05] MEDS: FLUCONAZOLE 100 MG TAB PO SCH (08:14)
[2019-08-05] MEDS: MAGNESIUM HYDROXIDE 2,400 MG/10 ML CUP PO SCH (08:16)
[2019-08-05] MEDS: IPRATROPIUM-ALBUTEROL 3 ML NEB INHALATION SCH ×4 (09:11→21:50)
--- NOTE | 2019-08-05 10:59 | P.PN ---
Progress Note - Text Progress Note Date: 08/05/19 The patient is resting comfortably in his bed. He has had some complaints of some mild epigastric pain. He is status post year CP with stent placement for cystic duct stump leak. His MARICHUY drain has some very mild colored bile fluid. On exam his vital signs are stable. His abdomen soft. Incision site clean and intact. Patient will be observed. We will continue supportive care.
--- NOTE | 2019-08-05 11:42 | PN ---
PROGRESS NOTE DATE OF SERVICE: 08/05/2019 REASON FOR FOLLOWUP: Leukocytosis process, possible cholangitis. INTERVAL HISTORY: The patient is currently afebrile. The patient is breathing comfortably. The patient denies having any chest pain. No shortness of breath. Occasional cough. Denies having any abdominal pain. Tolerating his diet and no diarrhea. PHYSICAL EXAMINATION: Blood pressure 131/81 with a pulse of 108, temperature 98.7, he is 95% on room air. General description is a middle-aged male, lying in bed in no distress. RESPIRATORY SYSTEM: Unlabored breathing. Decreased breath sounds in the base, no wheeze. HEART: S1, S2. Regular rate and rhythm. ABDOMEN: Soft, no tenderness. No guarding, no rigidity. LABS: Hemoglobin is 9, white count 8.1. BUN of 53, creatinine is 4.58. Blood culture repeat has been negative so far. DIAGNOSTIC IMPRESSION AND PLAN: Patient with leukocytosis and biliary leak post open cholecystectomy, status post ERCP and stent placement and concern for possible cholangitis. The patient is currently covered with cefepime. White count showing a downward trend. Blood culture negative so far. Will monitor his clinical course closely. Continue supportive care. MMODL / IJN: [id number] /
[2019-08-05 12:15] LABS: Glucose,Whole Blood 181 mg/dL (75-99)
[2019-08-05] MEDS: DARBEPOETIN ALFA 25 MCG/0.42 ML SYRINGE SQ SCH (12:49)
--- NOTE | 2019-08-05 15:00 | PN ---
PROGRESS NOTE The patient is seen for followup for acute kidney injury. He remains hemodialysis dependent. Patient will be dialyzed today. He has some urine output, although not significant. PHYSICAL EXAMINATION: On examination, blood pressure was 131/86, heart rate 118 per minute, patient is afebrile. Examination of the heart S1, S2. Examination of lungs, decreased breath sounds at the bases. Abdomen is soft, nontender. Examination lower extremities shows trace edema bilaterally. RECREATION ASSISTANT exam grossly intact. LABS: Show sodium 133, potassium 4.7, chloride 96, BUN 83, creatinine 4.58. ASSESSMENT: 1. Acute kidney injury, acute tubular necrosis, currently nonoliguric, however, urine output remains on the lower side. Patient is dialysis dependent. We will plan for dialysis today. Next treatment either Wednesday or Wednesday depending on labs. 2. Status post severe pancreatitis, slowly improving. 3. Generalized debility. 4. Hypoxic respiratory failure status post extubation. 5. Hyperphosphatemia, currently improved. PLAN: Hemodialysis today and then again on Wednesday or Wednesday depending on labs. MMODL / IJN: [id number] /
[2019-08-05 17:13] LABS: Glucose,Whole Blood 126 mg/dL (75-99)
--- NOTE | 2019-08-05 20:02 | XR ---
EXAMINATION TYPE: XR chest 1V portable DATE OF EXAM: 08/05/2019 COMPARISON: 07/28/2019 HISTORY: Short of breath TECHNIQUE: FINDINGS: There is some linear density at both lung bases. There is poor inspiration. There is no hea rt failure. There is right central venous catheter with the tip in the superior vena cava. There are chest leads. IMPRESSION: There is bilateral basilar atelectasis improved slightly compared to last exam. There is decrease in pulmonary congestion compared to last exam.
[2019-08-05 20:45] LABS: Glucose,Whole Blood 131 mg/dL (75-99)
[2019-08-05] MEDS: METOPROLOL TARTRATE 12.5 MG TAB PO SCH (21:16)
[2019-08-05] MEDS: GABAPENTIN 100 MG CAP PO SCH (21:17)
--- NOTE | 2019-08-05 22:16 | PN ---
PROGRESS NOTE DATE OF SERVICE: 08/05/2019 This 54-year-old gentleman was admitted with gallstone aneurysm, choledocholithiasis, sepsis, also had open cholecystectomy. The patient also had sepsis, present on admission. Patient was treated with antibiotics. Because of concerns of biliary leak, the patient underwent ERCP and as well as cholangiograms with sphincterotomy and balloon sweep of the common bile duct and stent placement by Dr. Quintero. The patient the patient being closely monitored at this time. The patient also had elevated creatinine 4.[address] Membreno is following the patient closely. White count is elevated at 13.1. PAST MEDICAL HISTORY: Reviewed. REVIEW OF SYSTEMS: Cardiovascular system: No angina or palpitations. Respiration as mentioned earlier. GASTROINTESTINAL: As mentioned earlier. no dysuria. Nervous systems: No numbness or weakness. CURRENT MEDICATIONS: Reviewed and include: 1. Tylenol p.r.n. 2. [place] 10 mg q.6h p.r.n. 3. DuoNeb q.i.d. and p.r.n. 4. Calcium acetate. 5. Cefepime 1 g IV daily. 7. Diflucan 100 mg. 8. Neurontin. 9. Dilaudid. 10.NovoLog. 12.Lopressor. 13.Narcan. 14.Zofran. 15.Protonix. 16.Renvela, doses are reviewed. PHYSICAL EXAM: Patient is alert and oriented x3. Pulse 62. Blood pressure 141/89, respiration 14, temperature 99 degrees, pulse ox 94% on room air. HEENT: Conjunctivae normal. Oral mucosa moist. NECK is no jugular venous distention. No carotid bruit. No lymph node enlargement. Cardiovascular systems: S1, S2 muffled. RESPIRATIONS: Breath sounds diminished in the bases. A few scattered rhonchi and crackles. ABDOMEN: Soft and nontender. No mass palpable. LEGS: No edema. No swelling. CENTRAL NERVOUS SYSTEM: No focal deficits. LAB: WBC 13.2, hemoglobin 9, sodium 133. The most recent chest x-ray is not available. ASSESSMENT: 1. Acute gallstone pancreatitis with acute cholecystitis and choledocholithiasis, status post open cholecystectomy with possible sepsis, present on admission. 2. Acute hypoxic respiratory failure secondary to above, status post mechanical ventilation. 3. Biliary leak, status post ERCP, cholangiogram, sphincterotomy, balloon sweep of the common bile duct and stent placement. 4. Enlarging pancreatic fluid collection. 5. Persistent elevated WBC. 6. Pancreatic pseudocyst. 7. Gait dysfunction. 8. Acute kidney injury secondary to acute tubular necrosis requiring hemodialysis. 9. Hypertension. 10.History of hearing difficulties. 11.Hyponatremia. 12.Hypoalbuminemia with mild to moderate protein calorie malnutrition. 13.Increased WBC. 14.Anemia of chronic disease. 15.Obesity with body mass index of 50.6. 16.History of hypertension. 17.History of nicotine dependence. 18.FULL CODE. RECOMMENDATIONS AND DISCUSSION: I recommend to continue current medications, management and symptomatic treatment. Continue with IV antibiotics. Otherwise, we will continue to monitor. Monitor creatinine closely. Patient is on IV cefepime per Dr. Hernandez. The blood culture only showing coagulase-negative Staph from July 23. The most recent cultures are negative. I would recommend repeat labs and continue to monitor. PT/OT evaluation. Consider possible ECF rehab and guarded prognosis. Further recommendations to follow. See orders for details. MMODL / IJN: [id number] / MTDD
[2019-08-06] MEDS: CALCIUM CARBONATE 500 MG CHEWABLE PO PRN ×3 (02:56→21:39)
[2019-08-06 06:10] LABS: Glucose,Whole Blood 127 mg/dL (75-99)
[2019-08-06] MEDS: INSULIN ASPART (NovoLOG) 100 UNIT/ML VIAL SQ SCH ×4 (06:19→20:45)
[2019-08-06 06:43] LABS: Basophils # (A) 0.2 k/uL (0-0.2); Basophils % (A) 1 %; Eosinophils # (A) 0.2 k/uL (0-0.7); Eosinophils % (A) 1 %; HCT 27.4 % (39.0-53.0); Hypochromasia Moderate; Lymphocytes # (A) 0.9 k/uL (1.0-4.8); Lymphocytes % (A) 6 %; MCH 31.2 pg (25.0-35.0); MCHC 32.9 g/dL (31.0-37.0); MCV 94.9 fL (80.0-100.0); Mean Platelet Volume 8.1; Monocytes # (A) 1.1 k/uL (0-1.0); Monocytes % (A) 7 %; Neutrophils % (A) 84 %; Platelet Count 294 k/uL (150-450); RBC 2.89 m/uL (4.30-5.90); RDW 13.7 % (11.5-15.5); WBC 16.6 k/uL (3.8-10.6)
[2019-08-06] MEDS: PANTOPRAZOLE 40 MG TABLET PO SCH (06:50)
[2019-08-06] MEDS: SEVELAMER 800 MG TAB PO SCH ×3 (06:50→16:03)
[2019-08-06] MEDS: CALCIUM ACETATE 667 MG TAB PO SCH ×3 (06:50→16:03)
[2019-08-06 07:09] LABS: Albumin 3.1 g/dL (3.5-5.0); Calcium 8.8 mg/dL (8.4-10.2); Potassium 4.5 mmol/L (3.5-5.1); Total Bilirubin 0.7 mg/dL (0.2-1.3); Total Protein 5.9 g/dL (6.3-8.2)
[2019-08-06] MEDS: HEPARIN SODIUM,PORCINE 5,000 UNIT/ML 1 ML VIAL SQ SCH ×3 (08:07→23:15)
[2019-08-06] MEDS: CEFEPIME 1 GM in SODIUM CHLORIDE 0.9% 50 ML IVPB SCH (08:07)
[2019-08-06] MEDS: MAGNESIUM HYDROXIDE 2,400 MG/10 ML CUP PO SCH (08:08)
[2019-08-06] MEDS: FLUCONAZOLE 100 MG TAB PO SCH (08:12)
[2019-08-06] MEDS: METOPROLOL TARTRATE 12.5 MG TAB PO SCH (08:12)
[2019-08-06] MEDS: LIDOCAINE 5% PATCH TOPICAL SCH (08:14)
[2019-08-06] MEDS: IPRATROPIUM-ALBUTEROL 3 ML NEB INHALATION SCH ×4 (08:35→20:12)
[2019-08-06] MEDS: ONDANSETRON 4 MG/2 ML VIAL IVP PRN (11:03)
--- NOTE | 2019-08-06 11:33 | P.PN ---
Progress Note - Text Progress Note Date: 08/06/19 The patient's complaints of indigestion and nausea. He still feels quite weak. On exam his vital signs are stable. Abdomen soft. Incision site is clean dry intact. MARICHUY drain has mainly serous. The patient is developed a large pseudocyst. The pseudocyst measured prostate 10 x 20 cm and is compressing the stomach against the anterior abdominal wall. This will be observed. If the pseudocyst does not resolve he may need an intervention for drainage of the pseudocyst. The patient will continue have supportive care.
[2019-08-06 12:35] LABS: Glucose,Whole Blood 135 mg/dL (75-99)
[2019-08-06] MEDS: IOPAMIDOL CONTRAST (ORAL USE) VIAL PO PRN ×2 (12:52→13:49)
[2019-08-06] MEDS: HYDROmorphone 0.5 MG/0.5 ML SYRINGE IVP PRN ×2 (12:53→21:04)
--- NOTE | 2019-08-06 13:20 | PN ---
PROGRESS NOTE The patient is seen for follow up for acute kidney injury. The patient is complaining of loose bowel movements this morning. He has had fair urine output. He was dialyzed yesterday and his creatinine is actually at 3.29. We will continue. We will monitor his labs tomorrow and decide on renal replacement therapy based on his labs. There appears to be some recovery of kidney function. PHYSICAL EXAMINATION: On examination today, blood pressure was 131/87, heart rate 64 per minute, patient is afebrile. Examination of the heart S1, S2. Examination of the lungs, bilateral breath sounds are heard. Abdomen is soft, nontender. Examination of lower extremities shows no significant edema. 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 LABS: Sodium 132, potassium 4.5, chloride 96, BUN 60, creatinine 3.29, hemoglobin 9.0. ASSESSMENT: 1. Acute kidney injury, acute tubular necrosis, currently nonoliguric. The patient was dialyzed yesterday. His creatinine is much improved. We will repeat his labs tomorrow and if patient needs to continue with renal replacement therapy I think we can wait until Wednesday. Continue to avoid nephrotoxic agents. 2. Severe pancreatitis, currently improved. 3. Significant generalized debility. 4. Volume overload, slowly improving. PLAN: Repeat labs in a.m. Continue to monitor for recovery of renal function. If the patient continues to remain dialysis dependent, I believe he could wait until Wednesday. BEAU / NARINDER: [id number] /
--- NOTE | 2019-08-06 13:21 | P.CRDCN ---
History of Present Illness Consult date: 08/06/19 Requesting physician: Fadi Lopez Reason for Consult (text): Tachycardia History of present illness: 's is a 54-year-old gentleman who was admitted to the hospital 26 days ago with acute gallstone pancreatitis, patient underwent open cholecystectomy for gallstone pancreatitis and went into multisystem organ failure/sepsis he was intubated in the intensive care unit and also had to be initiated on hemodia lysis. Patient was eventually extubated, is now being followed on the cardiac care unit. Cardiology consultation was requested because of sinus tachycardia. His blood pressure today 130/80 with a heart rate of 108, 95% on room air. Blood cell count 16.6, hemoglobin 9.0, platelet count 294. Sodium 132, potassium 4.5, BUN 60, creatinine 3.2. TSH level 6.2. Chin had concerns of a biliary leak and underwent an ERCP as well as cholangiogram with sphincterotomy and balloon sweep of the common bile duct and stent placement by . He was seen today by surgery, he is complaining of some nausea and indigestion today and still feels quite weak. Patient developed a large pseudocyst bessie uring approximately 10 x 20 cm which is compressing his stomach against the anterior abdominal wall which they are observing, if this does not resolve he may need an intervention for drainage of the pseudocyst. His EKG on presentation here showed a sinus tachycardia and continues to show sinus tach ycardia this morning. This was performed on July 12. Past Medical History Past Medical History: Hearing Disorder / Deafness, Hypertension Additional Past Medical History / Comment(s): HAD A HEART MURMUR WHEN A CHILD- NEVER HEARD ANYTHING AFTER THAT ABOUT IT, SL. HEARLING LOSS YAMILA. EARS History of Any Multi-Drug Resistant Organisms: None Reported Past Surgical History: No Surgical Hx Reported Additional Past Surgical History / Comment(s): Colonoscopy with benign polypectomy Past Anesthesia/Blood Transfusion Reactions: No Reported Reaction Smoking Status: Current some day smoker - Past Family History Father Family Medical History: Coronary Artery Disease (CAD) Additional Family Medical History / Comment(s): Father had 4 vessel CABG Mother Family Medical History: Hypertension Medications and Allergies Home Medications Medication Instructions Recorded Confirmed Type Lisinopril-Hctz 10-12.5 mg 1 tab PO DAILY 05/30/19 07/11/19 History [Zestoretic 10-12.5] Multivitamins, Thera [Multivitamin 1 tab PO DAILY 07/11/19 07/11/19 History (formulary)] Allergies Allergy/AdvReac Type Severity Reaction Status Date / Time amoxicillin Allergy Rash/Hives Verified 07/11/19 08:00 Physical Exam Vitals: Vital Signs Temp Pulse Pulse Resp BP Pulse Ox 08/06/19 12:00 108 H 18 08/06/19 11:51 64 08/06/19 11:43 64 08/06/19 11:03 108 H 18 131/87 95 08/06/19 08:49 68 08/06/19 08:37 68 08/06/19 08:00 121 H 08/06/19 07:37 98.5 F 121 H 18 118/81 98 08/06/19 04:00 98.2 F 110 H 18 136/74 93 L 08/06/19 00:00 110 H 08/05/19 23:31 99.7 F H 117 H 16 136/85 94 L 08/05/19 20:16 97.9 F 131 H 149/87 08/05/19 20:00 99.3 F 120 H 18 131/85 95 08/05/19 16:46 66 08/05/19 16:36 62 08/05/19 15:59 63 08/05/19 15:57 99.0 F 63 14 141/89 94 L Intake and Output 08/05/19 08/06/19 08/06/19 22:59 06:59 14:59 Intake Total 300 470 40 Output Total 3350 30 Balance -3050 440 40 Intake: IV 0 20 40 0.9 0 Invasive Line 8 20 40 Oral 450 Hemodialysis 300 Output: Drainage 50 30 Right Abdomen 50 30 Urine 0 Hemodialysis 3300 Other: Voiding Method Urinal Urinal Weight 107.6 kg GENERAL: Revealed a 54-year-old white male, awake, less lethargic, more and more verbal.. Head: Atraumatic, normocephalic. HEENT:: PERRLA, EOMI, neck disc, dry mucous membranes. NECK: No neck masses no JVD no stridor HEART: Normal S1 and S2, no S3 gallop. LUNGS: Diminished breath sounds and crackles at the bases no rhonchi and no wheezes. ABDOMEN: The abdomen was soft, non-tender, and without masses, organomegaly, or appreciable enlargement of the abdominal aorta.Bowel sounds are hypoactive at this point in time. No direct tenderness or rebound tenderness or guarding. No ascites.the patient has an incision in the right upper quadrant and the incision site is dry clean and intact and the patient has a MARICHUY drain in the right upper quadrant also. Bowel sounds are hypoactive. No direct tenderness. No rebound tenderness. No guarding. Scrotal edema. PSYCH: Calm mood, blunt affect, follows all simple instructions NEUROLOGICAL: Alert, oriented 2, generally weak, otherwise no gross focal deficits. Results 08/06/19 05:33 08/06/19 05:33 Cardiac Enzymes 08/06/19 Range/Units 05:33 AST 31 (17-59) U/L CBC 08/06/19 Range/Units 05:33 WBC 16.6 H (3.8-10.6) k/uL RBC 2.89 L (4.30-5.90) m/uL Hgb 9.0 L (13.0-17.5) gm/dL Hct 27.4 L (39.0-53.0) % Plt Count 294 (150-450) k/uL Comprehensive Metabolic Panel 08/06/19 Range/Units 05:33 Sodium 132 L (137-145) mmol/L Potassium 4.5 (3.5-5.1) mmol/L Chloride 96 L (98-107) mmol/L Carbon Dioxide 23 (22-30) mmol/L BUN 60 H (9-20) mg/dL Creatinine 3.29 H (0.66-1.25) mg/dL Glucose 110 H (74-99) mg/dL Calcium 8.8 (8.4-10.2) mg/dL AST 31 (17-59) U/L ALT 29 (4-49) U/L Alkaline Phosphatase 261 H (38-126) U/L Total Protein 5.9 L (6.3-8.2) g/dL Albumin 3.1 L (3.5-5.0) g/dL Current Medications Generic Name Dose Route Start Last Admin Trade Name Freq PRN Reason Stop Dose Admin Acetaminophen 650 mg 07/13/19 04:19 08/01/19 21:49 Tylenol Tab PO 650 mg Q4HR PRN Administration Fever and/or Mild Pain Hydrocodone Bitart/Acetaminophen 1 each 08/01/19 09:58 08/05/19 15:26 [place] 10 PO 1 each Q6H PRN Administration Moderate Pain Albuterol/Ipratropium 3 ml 07/23/19 08:00 08/06/19 11:41 Duoneb 0.5 Mg-3 Mg/3 Ml Soln INHALATION 3 ml RT-QID OBEY Administration Albuterol/Ipratropium 3 ml 07/22/19 23:18 Duoneb 0.5 Mg-3 Mg/3 Ml Soln INHALATION RT-Q2H PRN Shortness Of Breath Or Wheezing Calcium Acetate 1,334 mg 07/26/19 17:30 08/06/19 06:50 Phoslo PO 1,334 mg TID-W/MEALS OBEY Administration Calcium Carbonate/Glycine 500 mg 07/30/19 15:22 08/06/19 09:31 Tums PO 500 mg TID PRN Administration Heartburn Darbepoetin Mj 12.5 mcg 07/22/19 14:00 08/05/19 12:49 Aranesp SQ 12.5 mcg Q7D OBEY Administration Fluconazole 100 mg 08/02/19 17:00 08/06/19 08:12 Diflucan PO 100 mg DAILY OBEY Administration Gabapentin 100 mg 08/03/19 21:00 08/05/19 21:17 Neurontin PO 100 mg HS OBEY Administration Heparin Sodium (Porcine) 5,000 unit 07/19/19 16:00 08/06/19 08:07 Heparin SQ 5,000 unit Q8HR OBEY Administration Hydromorphone HCl 0.5 mg 08/01/19 09:58 08/06/19 12:53 Dilaudid IVP 0.5 mg Q6HR PRN Administration Pain Scale 8 to 10 Cefepime HCl 1 gm/ Sodium 50 mls @ 100 mls/hr 08/04/19 09:00 08/06/19 08:07 Chloride IVPB 100 mls/hr DAILY OBEY Administration Insulin Aspart 0 unit 07/26/19 12:30 08/06/19 12:35 Novolog SQ Not Given ACHS [facility] Protocol Iopamidol 30 ml 08/06/19 12:34 08/06/19 12:52 Isovue-300 (For Oral Use) PO 08/07/19 12:35 30 ml Q60M PRN Administration CT Scan Lidocaine 1 patch 08/01/19 10:00 08/06/19 08:14 Lidoderm TOPICAL 1 patch DAILY OBEY Administration Magnesium Hydroxide 2,400 mg 08/02/19 09:00 08/06/19 08:08 Milk Of Magnesia PO Not Given DAILY OBEY Melatonin 3 mg 07/24/19 20:47 08/04/19 20:42 Melatonin PO 3 mg HS PRN Administration Insomnia Metoprolol Tartrate 12.5 mg 08/05/19 21:00 08/06/19 08:12 Lopressor PO 12.5 mg BID OBEY Administration Midodrine 10 mg 07/25/19 11:30 07/25/19 12:23 Proamatine PO 10 mg DAILY PRN Administration HYPOTENSION WITH DIALYSIS Naloxone HCl 0.2 mg 07/11/19 07:53 Narcan IV Q2M PRN Opioid Reversal Ondansetron HCl 4 mg 07/11/19 07:53 08/06/19 11:03 Zofran IVP 4 mg Q8HR PRN Administration Nausea And Vomiting Pantoprazole Sodium 40 mg 07/27/19 07:30 08/06/19 06:50 Protonix PO 40 mg [id number] OBEY Administration Sevelamer Carbonate 1,600 mg 07/28/19 12:30 08/06/19 06:50 Renvela PO 1,600 mg TID-W/MEALS OBEY Administration Intake and Output 08/05/19 08/06/19 08/06/19 22:59 06:59 14:59 Intake Total 300 470 40 Output Total 3350 30 Balance -3050 440 40 Intake: IV 0 20 40 0.9 0 Invasive Line 8 20 40 Oral 450 Hemodialysis 300 Output: Drainage 50 30 Right Abdomen 50 30 Urine 0 Hemodialysis 3300 Other: Voiding Method Urinal Urinal Weight 107.6 kg 08/06/19 05:33 08/06/19 05:33 EKG Interpretations (text) EKG shows a sinus tachycardia with no acute changes. Assessment and Plan Plan: Impression and plan: #1 Acute gallstone pancreatitis. Status post open cholecystectomy #2 Severe pancreatitis, improving since surgery however the patient developed multiorgan system failure. However improving steadily #3 Acute hypoxic respiratory failure secondary to pulmonary edema and pleural effusions secondary to pancreatitis and acute renal failure. #4 Acute kidney injury requiring hemodialysis and he continues to require hemodialysis #5 Fever and leukocytosis with hypotension, improving, remains on empiric antibiotics, #6 History of alcoholism. #7 History of hypertension. #8 Bilateral hearing loss. #9 Leukocytosis most likely secondary to sepsis. CT of the abdomen and pelvis showed pseudocyst, no plans for any surgical intervention. #10 Suspect metabolic encephalopathy. 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 #12 sinus tachycardia, likely secondary to sepsis and patient's other current medical concerns. Plan We will obtain an echocardiogram with Doppler study. Increase beta harvinder to 25 twice a day. DNP note has been reviewed, I agree with a documented findings and plan of care. Patient was seen and examined.
--- NOTE | 2019-08-06 15:21 | CT ---
EXAMINATION TYPE: CT abdomen pelvis wo con DATE OF EXAM: 08/06/2019 COMPARISON: 08/03/2019 INDICATION: Abdominal pain, recent cholecystectomy DLP: 1153.4 mGycm, Automated exposure control for dose reduction was used. CONTRAST: 0 mL of Isovue 300. Study performed with Oral Contrast TECHNIQUE: Axial images were obtained from above the diaphragm to the pubic rami in the axial plane a t 5 mm thick sections. Reconstructed images are reviewed on the computer in the coronal plane. FINDINGS: Limited CT sections are obtained the lung bases. Bibasilar infiltrates are present, likely on the ba sis of atelectasis. This is increasing from comparison. Some underlying scarring is not excluded.. CT ABDOMEN: Liver: Small amount of biliary air is evident. A biliary stent is evident. Spleen: Normal Pancreas: Atrophic. There is a large pseudocyst anterior to the pancreas. Pancreatic head may be some what enlarged and indistinct. Adrenal glands: The adrenal glands are normal. Gallbladder: Not identified. Correlate with surgical history Kidneys: No masses are evident. No hydronephrosis is present. No cysts are present. No renal stone s are evident. Aorta: Normal Inferior vena cava: Normal. CT PELVIS: Loops of bowel within the abdomen and pelvis are normal. There are loops of bowel which are incom pletely distended or lack oral contrast limiting their evaluation. Oral contrast does extend to the r ectum. Appendix: Normal as visualized. Urinary bladder: Normal. Genitourinary structures: Prostate is slightly prominent Osseous structures: No suspicious lytic or sclerotic lesions. IMPRESSIONS: 1. Large hypodensity anterior to the thickened pancreas compatible with a large pseudocyst is stable from comparison. 2. Correlate for acute pancreatitis
[2019-08-06] MEDS: METOCLOPRAMIDE 5 MG/ML 2 ML VIAL IVP PRN ×2 (15:46→21:36)
[2019-08-06 16:50] LABS: Glucose,Whole Blood 143 mg/dL (75-99)
[2019-08-06 16:54] LABS: T4, Free (Free Thyroxine) 1.51 ng/dL (0.78-2.19)
--- NOTE | 2019-08-06 17:02 | PN ---
PROGRESS NOTE DATE OF SERVICE: 08/06/2019 REASON FOR FOLLOWUP: Acute pancreatitis with pancreatic pseudocyst and question of ascending cholangitis. INTERVAL HISTORY: The patient is currently afebrile. The patient has been complaining of more abdominal discomfort, is mostly in the epigastric area and feeling gaseous and nausea but no vomiting. Denies having any chest pain, shortness of breath or cough. No diarrhea. PHYSICAL EXAMINATION: Blood pressure 125/80 with a pulse of 110, temperature 98.9. He is 95% on room air. General description is a middle-aged male lying in bed in no distress. Respiratory system: Unlabored breathing, clear to auscultation anteriorly. Heart S1, S2. Regular rate and rhythm. Abdomen soft, mildly distended. No significant guarding or rigidity. Extremities: Some trace edema of the feet. LABS: Hemoglobin is 9, white count of 16.3, BUN of 15, creatinine 3.29. Repeat CT abdomen and pelvis was done this afternoon and shows the large pancreatic pseudocyst and features of pancreatitis but no other abnormality has been reported. DIAGNOSTIC IMPRESSION AND PLAN: Patient with gallstone pancreatitis status post open cholecystectomy with biliary leak, status post ERCP, stent placement with concern for possible ascending cholangitis. Patient is currently covered with cefepime. White count shows slightly upward trend but no fever. His CT did not show evidence of any abscess. Concern for possible infected pseudocyst will be there but absence of fever and no toxic symptoms would make it less likely. We will monitor his clinical course closely. Continue the cefepime. MMODL / IJN: [id number] /
[2019-08-06 17:49] LABS: Amylase 128 U/L (30-110)
--- NOTE | 2019-08-06 18:02 | PN ---
PROGRESS NOTE DATE OF SERVICE: 08/06/2019 This 54-year-old gentleman admitted with gallstone pancreatitis had cholecystitis and choledocholithiasis. The patient had open cholecystectomy. Patient had multiple complex medical issues and complex surgical issues including sepsis, acute hypoxic respiratory failure. Currently the patient is thought to have some biliary leak. ERCP and cholangiogram, sphincterotomy, balloon sweep of the common bile duct was done by Dr. Quintero recently. The patient is being closely monitored. Patient complains of abdominal distention. Patient apparently vomited also today. Cardiology is following the patient. Surgery is following. Infectious Disease following the patient closely. CT scan of the abdomen and pelvis repeated showed large hypodensity due to thickened pancreas compatible with large pseudocyst, which is stable by comparison, possible acute pancreatitis noted in the CT scan. PAST MEDICAL HISTORY: Reviewed. REVIEW OF SYSTEMS: Cardiovascular system: No angina or palpitations. RESPIRATORY: As mentioned earlier. GI no nausea or vomiting. no dysuria. Nervous system: No numbness or weakness. CURRENT MEDICATIONS: Reviewed and include: 1. Tylenol p.r.n. 2. Havre 10 mg q.6h p.r.n. 3. DuoNeb q.i.d. and p.r.n. 4. PhosLo 1334 mg p.o. t.i.d. 5. Tums t.i.d. 6. Cefepime 1 g daily. 8. Diflucan 100 mg p.o. q.h.s. 9. Heparin 5000 subcu q.i.d. 10.Dilaudid 0.5 mg q.6h. 11.NovoLog. 12.Milk of Magnesia. 13.Melatonin. 14.Reglan. 15.Lopressor. 16.Medications reviewed. 17.Doses reviewed. PHYSICAL EXAM: Patient is alert, oriented x2. Pulse is 64, blood pressure is 125/80, respiration 18, temperature normal, pulse ox 94% on room air. HEENT: Conjunctivae normal. Oral mucosa moist. NECK is no jugular venous distention. No carotid bruit. No lymph node enlargement. Cardiovascular systems: S1, S2 muffled. Respirations: Breath sounds diminished in the bases. Scattered rhonchi and crackles. ABDOMEN: Soft. Obese. Mild diffuse discomfort on palpation. No guarding. No rigidity. No mass palpable. No flank dullness. LEGS: No edema. No swelling. Nervous system: Higher functions as mentioned earlier. Moves all 4 limbs. No focal motor or sensory deficits. Lymphatics: No lymph nodes palpable in the neck, axillae or groin. SKIN: No ulcer, no rash and no bleeding. JOINTS: No active deforming arthropathy. LABS: At this time shows WBC 16.2, hemoglobin is 9, sodium 132, potassium 4.5, creatinine 3.29, alkaline phosphatase is 261 and albumin is 3.1. TSH is 6.200. ASSESSMENT: 1. Acute gallstone pancreatitis with acute cholecystitis and choledocholithiasis, status post open cholecystectomy with possible sepsis present on admission. 2. Acute hypoxic respiratory failure secondary to above, status post mechanical ventilation. 3. Biliary leak, status post ERCP, cholangiogram, sphincterotomy and balloon sweep of the common bile duct and stent placement. 4. Large pancreatic pseudocyst with features of acute pancreatitis in the CT scan. 5. Enlarging pancreatic fluid collection. 6. Persistent elevated WBC. 7. Gait dysfunction. 8. Acute kidney injury secondary to acute tubular necrosis requiring hemodialysis. 9. Hypertension. 10.Hearing difficulties. 11.Hyponatremia. 12.Hypoalbuminemia with mild to moderate protein calorie malnutrition. 13.Increased WBC. 14.Anemia of chronic disease. 15.Obesity with body mass index of 50.6. 16.History of hypertension. 17.History of nicotine dependence. 18.FULL CODE. RECOMMENDATIONS AND DISCUSSION: I recommend to continue current medications, management and symptomatic treatment. Continue with current medications. The patient is on broad IV antibiotics. Monitor creatinine closely. Closely follow with Nephrology. Otherwise, I would also recommend free T3 and free T4. Prognosis guarded because of multiple complex medical issues and further recommendations to follow. MMODL / IJN: [id number] / MTDD
[2019-08-06 20:13] LABS: Glucose,Whole Blood 139 mg/dL (75-99)
[2019-08-06] MEDS: METOPROLOL TARTRATE 25 MG TAB PO SCH (20:51)
[2019-08-06] MEDS: PANTOPRAZOLE 40 MG/10 ML VIAL IVP SCH (20:51)
[2019-08-06] MEDS: GABAPENTIN 100 MG CAP PO SCH (20:52)
[2019-08-07] MEDS: HYDROmorphone 0.5 MG/0.5 ML SYRINGE IVP PRN ×4 (02:50→20:43)
[2019-08-07 06:10] LABS: Glucose,Whole Blood 129 mg/dL (75-99)
[2019-08-07] MEDS: INSULIN ASPART (NovoLOG) 100 UNIT/ML VIAL SQ SCH ×4 (06:14→20:43)
[2019-08-07 08:03] LABS: Basophils # (A) 0.2 k/uL (0-0.2); Basophils % (A) 2 %; Eosinophils # (A) 0.2 k/uL (0-0.7); Eosinophils % (A) 1 %; HCT 27.2 % (39.0-53.0); HGB 8.7 gm/dL (13.0-17.5); Hypochromasia Moderate; Lymphocytes # (A) 1.2 k/uL (1.0-4.8); Lymphocytes % (A) 8 %; MCH 30.5 pg (25.0-35.0); MCHC 32.1 g/dL (31.0-37.0); MCV 95.2 fL (80.0-100.0); Mean Platelet Volume 8.8; Monocytes # (A) 1.2 k/uL (0-1.0); Monocytes % (A) 8 %; Neutrophils % (A) 79 %; Platelet Count 333 k/uL (150-450); RBC 2.85 m/uL (4.30-5.90); RDW 13.5 % (11.5-15.5); WBC 13.9 k/uL (3.8-10.6)
[2019-08-07 08:10] LABS: Albumin 3.2 g/dL (3.5-5.0); Potassium 4.7 mmol/L (3.5-5.1); Total Bilirubin 0.7 mg/dL (0.2-1.3); Total Protein 6.2 g/dL (6.3-8.2)
[2019-08-07] MEDS: SEVELAMER 800 MG TAB PO SCH ×3 (08:25→17:22)
[2019-08-07] MEDS: CALCIUM ACETATE 667 MG TAB PO SCH ×3 (08:25→17:21)
[2019-08-07] MEDS: MAGNESIUM HYDROXIDE 2,400 MG/10 ML CUP PO SCH (08:26)
[2019-08-07] MEDS: HEPARIN SODIUM,PORCINE 5,000 UNIT/ML 1 ML VIAL SQ SCH ×3 (08:52→23:21)
[2019-08-07] MEDS: PANTOPRAZOLE 40 MG/10 ML VIAL IVP SCH (08:52)
[2019-08-07] MEDS: FLUCONAZOLE 100 MG TAB PO SCH (08:54)
[2019-08-07] MEDS: LIDOCAINE 5% PATCH TOPICAL SCH (08:54)
[2019-08-07] MEDS: METOPROLOL TARTRATE 25 MG TAB PO SCH (08:54)
[2019-08-07] MEDS: CEFEPIME 1 GM in SODIUM CHLORIDE 0.9% 50 ML IVPB SCH (08:55)
[2019-08-07] MEDS: IPRATROPIUM-ALBUTEROL 3 ML NEB INHALATION SCH ×4 (09:24→20:12)
--- NOTE | 2019-08-07 10:45 | P.PN ---
Subjective Patient is seen in follow-up for acute kidney injury, currently hemodialysis dependent. Urine output not documented accurately. He does not have a Chaves catheter at this time. Edema improved. Currently awake and alert. Denies chest pain or shortness of breath. Vital signs are stable. General: The patient appeared well nourished and normally developed. Intubated. HEENT: Head exam is unremarkable. Neck is without jugular venous distension. LUNGS: Lungs are clear to auscultation and percussion. Breath sounds decreased. HEART: Rate and Rhythm are regular. First and second heart sounds normal. No murmurs, rubs or gallops. ABDOMEN: Bowel sounds decreased. EXTREMITITES: 1+ edema. Objective - Vital Signs Vital signs: Vital Signs Temp 98.5 F 08/07/19 08:35 Pulse 66 08/07/19 09:39 Resp 12 08/07/19 08:35 BP 127/79 08/07/19 08:35 Pulse Ox 96 08/07/19 09:26 Intake & Output 08/06/19 08/07/19 08/07/19 18:59 06:59 18:59 Intake Total 60 25 Output Total 390 Balance 60 -365 Weight 103.8 kg Intake: IV 60 25 0.9 0 Invasive Line 8 60 25 Oral 0 Output: Drainage 15 Right Abdomen 15 Urine 375 Other: Voiding Method Urinal Urinal # Voids 1 # Bowel Movements 1 ABP, PAP, CO, CI - Last Documented Arterial Blood Pressure 96/53 - Labs CBC & Chem 7: 08/07/19 05:43 08/07/19 05:43 Labs: Abnormal Lab Results - Last 24 Hours (Table) 08/06/19 08/06/19 08/06/19 Range/Units 05:33 12:33 16:34 WBC (3.8-10.6) k/uL RBC (4.30-5.90) m/uL Hgb (13.0-17.5) gm/dL Hct (39.0-53.0) % Neutrophils # (1.3-7.7) k/uL Monocytes # (0-1.0) k/uL Sodium (137-145) mmol/L BUN (9-20) mg/dL Creatinine (0.66-1.25) mg/dL Glucose (74-99) mg/dL POC Glucose (mg/dL) 135 H 143 H (75-99) mg/dL Alkaline Phosphatase (38-126) U/L Total Protein (6.3-8.2) g/dL Albumin (3.5-5.0) g/dL Amylase 122 H (30-110) U/L 08/06/19 08/06/19 08/07/19 Range/Units 17:17 20:11 05:43 WBC 13.9 H (3.8-10.6) k/uL RBC 2.85 L (4.30-5.90) m/uL Hgb 8.7 L (13.0-17.5) gm/dL Hct 27.2 L (39.0-53.0) % Neutrophils # 11.0 H (1.3-7.7) k/uL Monocytes # 1.2 H (0-1.0) k/uL Sodium (137-145) mmol/L BUN (9-20) mg/dL Creatinine (0.66-1.25) mg/dL Glucose (74-99) mg/dL POC Glucose (mg/dL) 139 H (75-99) mg/dL Alkaline Phosphatase (38-126) U/L Total Protein (6.3-8.2) g/dL Albumin (3.5-5.0) g/dL Amylase 128 H (30-110) U/L 08/07/19 08/07/19 Range/Units 05:43 06:09 WBC (3.8-10.6) k/uL RBC (4.30-5.90) m/uL Hgb (13.0-17.5) gm/dL Hct (39.0-53.0) % Neutrophils # (1.3-7.7) k/uL Monocytes # (0-1.0) k/uL Sodium 134 L (137-145) mmol/L BUN 77 H (9-20) mg/dL Creatinine 4.08 H (0.66-1.25) mg/dL Glucose 104 H (74-99) mg/dL POC Glucose (mg/dL) 129 H (75-99) mg/dL Alkaline Phosphatase 313 H (38-126) U/L Total Protein 6.2 L (6.3-8.2) g/dL Albumin 3.2 L (3.5-5.0) g/dL Amylase (30-110) U/L Microbiology - Last 24 Hours (Table) 08/04/19 07:21 Blood Culture - Preliminary Blood No Growth after 72 hours Assessment and Plan Plan: Assessment: 1. Acute kidney injury secondary to ATN secondary to septic shock, currently hemodialysis dependent. Started on hemodialysis July 15. Baseline creatinine is near 1 and peaked at greater than 8 this admission. Nonoliguric. 2. Volume overload. Partially due to third spacing due to hypoalbuminemia. Better. 3. Severe acute pancreatitis. ERCP was attempted earlier this admission. Status post open cholecystectomy on July 17. 4. Hyperphosphatemia secondary to acute kidney injury maintained on PhosLo and Renvela. Better. 5. Ileus, s/p TPN. 6. Metabolic acidosis secondary to acute kidney injury. Improved with dialysis. 7. Hyperkalemia secondary to acute kidney injury and metabolic acidosis. Stable. 8. Hypervolemic hyponatremia. Stable. 9. Status post permacath placement July 28. 10. Anemia of chronic kidney disease. Maintained on Aranesp. Plan: Hemodialysis on Wednesday schedule. Avoid nephrotoxins. Continue to monitor renal function and urine output. manager poker following to set up outpatient hemodialysis. Will monitor for renal recovery outpatient.
--- NOTE | 2019-08-07 11:14 | P.PN ---
Subjective Progress Note Date: 08/07/19 This is a 54-year-old gentleman who was admitted to the hospital 26 days ago with acute gallstone pancreatitis, patient underwent open cholecystectomy for gallstone pancreatitis and went into multisystem organ failure/sepsis he was intubated in the intensive care unit and also had to be initiated on hemodialysis. Patient was eventually extubated, is now being followed on the cardiac care unit. Cardiology consultation was requested because of sinus tachycardia. His blood pressure today 130/80 with a heart rate of 108, 95% on room air. Blood cell count 16.6, hemoglobin 9.0, platelet count 294. Sodium 132, potassium 4.5, BUN 60, creatinine 3.2. TSH level 6.2. Chin had concerns of a biliary leak and underwent an ERCP as well as cholangiogram with sphincterotomy and balloon sweep of the common bile duct and stent placement by . He was seen today by surgery, he is complaining of some nausea and indigestion today and still feels quite weak. Patient developed a large pseudocyst measuring approximately 10 x 20 cm which is compressing his stomach against the anterior abdominal wall which they are observing, if this does not resolve he may need an intervention for drainage of the pseudocyst. His EKG on presentation here showed a sinus tachycardia and continues to show sinus tachycardia this morning. This was performed on July 12. 08/07/2019 Patient seen and examined this morning, doing well overall, no complaints. Heart rate this morning around 100, blood pressure 127/79, 96% on room air.Echo is been performed but results are pending. We will increase his dose of beta harvinder this morning. Objective - Vital Signs Vital signs: Vital Signs Temp 98.5 F 08/07/19 08:35 Pulse 66 08/07/19 09:39 Resp 12 08/07/19 08:35 BP 127/79 08/07/19 08:35 Pulse Ox 96 08/07/19 09:26 Intake & Output 08/06/19 08/07/19 08/07/19 18:59 06:59 18:59 Intake Total 60 25 10 Output Total 390 60 Balance 60 -365 -50 Weight 103.8 kg Intake: IV 60 25 10 0.9 0 Invasive Line 8 60 25 10 Oral 0 Output: Drainage 15 Right Abdomen 15 Urine 375 Stool 60 Other: Voiding Method Urinal Urinal # Voids 1 # Bowel Movements 1 ABP, PAP, CO, CI - Last Documented Arterial Blood Pressure 96/53 - Exam GENERAL: Revealed a 54-year-old white male,in no acute distress at the time of my examination. Head: Atraumatic, normocephalic. HEENT:: PERRLA, EOMI, neck disc, dry mucous membranes. NECK: No neck masses no JVD no stridor HEART: Normal S1 and S2, no S3 gallop. LUNGS: Diminished breath sounds and crackles at the bases no rhonchi and no wheezes. ABDOMEN: The abdomen was soft, non-tender, and without masses, organomegaly, or appreciable enlargement of the abdominal aorta.Bowel sounds are hypoactive at this point in time. No direct tenderness or rebound tenderness or guarding. No ascites.the patient has an incision in the right upper quadrant and the incision site is dry clean and intact and the patient has a MARICHUY drain in the right upper quadrant also. Bowel sounds are hypoactive. No direct tenderness. No rebound tenderness. No guarding. Scrotal edema. PSYCH: Calm mood, blunt affect, follows all simple instructions NEUROLOGICAL: Alert, oriented 2, generally weak, otherwise no gross focal deficits. - Labs CBC & Chem 7: 08/07/19 05:43 08/07/19 05:43 Labs: Abnormal Lab Results - Last 24 Hours (Table) 08/06/19 08/06/19 08/06/19 Range/Units 05:33 12:33 16:34 WBC (3.8-10.6) k/uL RBC (4.30-5.90) m/uL Hgb (13.0-17.5) gm/dL Hct (39.0-53.0) % Neutrophils # (1.3-7.7) k/uL Monocytes # (0-1.0) k/uL Sodium (137-145) mmol/L BUN (9-20) mg/dL Creatinine (0.66-1.25) mg/dL Glucose (74-99) mg/dL POC Glucose (mg/dL) 135 H 143 H (75-99) mg/dL Alkaline Phosphatase (38-126) U/L Total Protein (6.3-8.2) g/dL Albumin (3.5-5.0) g/dL Amylase 122 H (30-110) U/L 08/06/19 08/06/19 08/07/19 Range/Units 17:17 20:11 05:43 WBC 13.9 H (3.8-10.6) k/uL RBC 2.85 L (4.30-5.90) m/uL Hgb 8.7 L (13.0-17.5) gm/dL Hct 27.2 L (39.0-53.0) % Neutrophils # 11.0 H (1.3-7.7) k/uL Monocytes # 1.2 H (0-1.0) k/uL Sodium (137-145) mmol/L BUN (9-20) mg/dL Creatinine (0.66-1.25) mg/dL Glucose (74-99) mg/dL POC Glucose (mg/dL) 139 H (75-99) mg/dL Alkaline Phosphatase (38-126) U/L Total Protein (6.3-8.2) g/dL Albumin (3.5-5.0) g/dL Amylase 128 H (30-110) U/L 08/07/19 08/07/19 Range/Units 05:43 06:09 WBC (3.8-10.6) k/uL RBC (4.30-5.90) m/uL Hgb (13.0-17.5) gm/dL Hct (39.0-53.0) % Neutrophils # (1.3-7.7) k/uL Monocytes # (0-1.0) k/uL Sodium 134 L (137-145) mmol/L BUN 77 H (9-20) mg/dL Creatinine 4.08 H (0.66-1.25) mg/dL Glucose 104 H (74-99) mg/dL POC Glucose (mg/dL) 129 H (75-99) mg/dL Alkaline Phosphatase 313 H (38-126) U/L Total Protein 6.2 L (6.3-8.2) g/dL Albumin 3.2 L (3.5-5.0) g/dL Amylase (30-110) U/L Microbiology - Last 24 Hours (Table) 08/04/19 07:21 Blood Culture - Preliminary Blood No Growth after 72 hours Assessment and Plan Plan: Impression and plan: #1 Acute gallstone pancreatitis. Status post open cholecystectomy #2 Severe pancreatitis, improving since surgery however the patient developed multiorgan system failure. However improving steadily #3 Acute hypoxic respiratory failure secondary to pulmonary edema and pleural effusions secondary to pancreatitis and acute renal failure. #4 Acute kidney injury requiring hemodialysis and he continues to require hemodialysis #5 Fever and leukocytosis with hypotension, improving, remains on empiric antibiotics, #6 History of alcoholism. #7 History of hypertension. #8 Bilateral hearing loss. #9 Leukocytosis most likely secondary to sepsis. CT of the abdomen and pelvis showed pseudocyst, no plans for any surgical intervention. #10 Suspect metabolic encephalopathy. 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 #12 sinus tachycardia, likely secondary to sepsis and patient's other current medical concerns. Plan We will review the echocardiogram with Doppler study. Increase beta harvinder. DNP note has been reviewed, I agree with a documented findings and plan of care. Patient was seen and examined.
[2019-08-07 11:32] LABS: Glucose,Whole Blood 156 mg/dL (75-99)
--- NOTE | 2019-08-07 11:37 | P.PN ---
Subjective Progress Note Date: 08/07/19 CHIEF COMPLAINT: Abdominal pain HISTORY OF PRESENT ILLNESS: Patient is status post open cholecystectomy. Also s/p ERCP with stent placement for bile duct leak. Patient examined at the bedside. He denies abdominal pain. Denies nausea or vomiting. He did not eat any breakfast this morning. WBC 13.9. PHYSICAL EXAM: VITAL SIGNS: Reviewed GENERAL: Well-developed in no acute distress. HEENT: No sclera icterus. Extraocular movements grossly intact. Moist buccal mucosa. Head is atraumatic, normocephalic. Hears conversational speech. No nasal drainage. CHEST: Non-labored respirations and equal bilateral excursions. ABDOMEN: Soft. Nondistended. Dressing CDI. MARICHUY with bile drainage. PSYCH: Appropriate affect. Alert and oriented. SKIN: Well perfused. Good skin turgor. ASSESSMENT: 1. Abdominal pain 2. Cholelithiasis, s/p open cholecystectomy 3. Pancreatitis 4. Hyperbilirubinemia 5. Transaminitis 6. Acute renal failure, on hemodialysis 7. Suspected bile leak 8. Large fluid collection at pancreas PLAN: Patient was NPO at time of examination. Begin clear liquid diet. Advance as tolerated Continue to monitor pseudocyst of the pancreas. Possible intervention and drainage if necessary Nurse practitioner note has been reviewed by physician. Signing provider agrees with the documented findings, assessment, and plan of care. Objective - Vital Signs Vital signs: Vital Signs Temp 98.5 F 08/07/19 08:35 Pulse 66 08/07/19 09:39 Resp 12 08/07/19 08:35 BP 127/79 08/07/19 08:35 Pulse Ox 96 08/07/19 09:26 Intake & Output 08/06/19 08/07/19 08/07/19 18:59 06:59 18:59 Intake Total 60 25 10 Output Total 390 60 Balance 60 -365 -50 Weight 103.8 kg Intake: IV 60 25 10 0.9 0 Invasive Line 8 60 25 10 Oral 0 Output: Drainage 15 Right Abdomen 15 Urine 375 Stool 60 Other: Voiding Method Urinal Urinal # Voids 1 # Bowel Movements 1 ABP, PAP, CO, CI - Last Documented Arterial Blood Pressure 96/53 - Labs CBC & Chem 7: 08/07/19 05:43 08/07/19 05:43 Labs: Abnormal Lab Results - Last 24 Hours (Table) 08/06/19 08/06/19 08/06/19 Range/Units 05:33 12:33 16:34 WBC (3.8-10.6) k/uL RBC (4.30-5.90) m/uL Hgb (13.0-17.5) gm/dL Hct (39.0-53.0) % Neutrophils # (1.3-7.7) k/uL Monocytes # (0-1.0) k/uL Sodium (137-145) mmol/L BUN (9-20) mg/dL Creatinine (0.66-1.25) mg/dL Glucose (74-99) mg/dL POC Glucose (mg/dL) 135 H 143 H (75-99) mg/dL Alkaline Phosphatase (38-126) U/L Total Protein (6.3-8.2) g/dL Albumin (3.5-5.0) g/dL Amylase 122 H (30-110) U/L 08/06/19 08/06/19 08/07/19 Range/Units 17:17 20:11 05:43 WBC 13.9 H (3.8-10.6) k/uL RBC 2.85 L (4.30-5.90) m/uL Hgb 8.7 L (13.0-17.5) gm/dL Hct 27.2 L (39.0-53.0) % Neutrophils # 11.0 H (1.3-7.7) k/uL Monocytes # 1.2 H (0-1.0) k/uL Sodium (137-145) mmol/L BUN (9-20) mg/dL Creatinine (0.66-1.25) mg/dL Glucose (74-99) mg/dL POC Glucose (mg/dL) 139 H (75-99) mg/dL Alkaline Phosphatase (38-126) U/L Total Protein (6.3-8.2) g/dL Albumin (3.5-5.0) g/dL Amylase 128 H (30-110) U/L 08/07/19 08/07/19 Range/Units 05:43 06:09 WBC (3.8-10.6) k/uL RBC (4.30-5.90) m/uL Hgb (13.0-17.5) gm/dL Hct (39.0-53.0) % Neutrophils # (1.3-7.7) k/uL Monocytes # (0-1.0) k/uL Sodium 134 L (137-145) mmol/L BUN 77 H (9-20) mg/dL Creatinine 4.08 H (0.66-1.25) mg/dL Glucose 104 H (74-99) mg/dL POC Glucose (mg/dL) 129 H (75-99) mg/dL Alkaline Phosphatase 313 H (38-126) U/L Total Protein 6.2 L (6.3-8.2) g/dL Albumin 3.2 L (3.5-5.0) g/dL Amylase (30-110) U/L Microbiology - Last 24 Hours (Table) 08/04/19 07:21 Blood Culture - Preliminary Blood No Growth after 72 hours
--- NOTE | 2019-08-07 11:40 | ECHOF ---
Referral Reason:tachycardia MEASUREMENTS -------- HEIGHT: 177.8 cm WEIGHT: 103.4 kg BP: IVSd: 1.3 cm (0.6 - 1.1) LVIDd: 3.3 cm (3.9 - 5.3) LVPWd: 1.2 cm (0.6 - 1.1) IVSs: 1.9 cm LVIDs: 2.3 cm LVPWs: 1.9 cm LAESV Index (A-L): 21.39 ml/m Ao Diam: 3.5 cm (2.0 - 3.7) AV Cusp: 2.7 cm (1.5 - 2.6) LA Diam: 3.4 cm (2.7 - 3.8) MV EXCURSION: 22.907 mm (> 18.000) MV EF SLOPE: 128 mm/s (70 - 150) EPSS: 0.5 cm MV E Milton: 0.81 m/s MV DecT: 142 ms MV A [place]: 0.94 m/s MV E/A Ratio: 0.86 AR PHT: 187 ms RAP: 5.00 mmHg RVSP: 11.77 mmHg FINDINGS -------- Resting tachycardia (HR>100bpm). This was a technically adequate study. The left ventricular size is normal. There is mild concentric left ventricular hypertrophy. Overa ll left ventricular systolic function is normal with, an EF between 60 - 65 %. The diastolic fillin g pattern is normal for the age of the patient 13.11. The right ventricle is normal in size. The left atrial size is normal. Normal LA size by volume 22+/-6 ml/m2. The right atrial size is normal. The aortic valve is trileaflet and appears structurally normal. Trace amount of aortic regurgitatio n. The mitral valve is normal. There is trace mitral regurgitation. The tricuspid valve appears structurally normal. Trace tricuspid regurgitation present. Right mahin tricular systolic pressure is normal at < 35 mmHg. There is no pulmonic regurgitation present. The aortic root size is normal. IVC Not well visulized. There is no pericardial effusion. CONCLUSIONS -------- 1. Resting tachycardia (HR>100bpm). 2. This was a technically adequate study. 3. The left ventricular size is normal. 4. There is mild concentric left ventricular hypertrophy. 5. Overall left ventricular systolic function is normal with, an EF between 60 - 65 %. 6. The diastolic filling pattern is normal for the age of the patient 13.11 7. The right ventricle is normal in size. 8. The left atrial size is normal. 9. Normal LA size by volume 22+/-6 ml/m2. 10. The right atrial size is normal. 11. The aortic valve is trileaflet and appears structurally normal. 12. Trace amount of aortic regurgitation. 13. The mitral valve is normal. 14. There is trace mitral regurgitation. 15. The tricuspid valve appears structurally normal. 16. Trace tricuspid regurgitation present. 17. Right ventricular systolic pressure is normal at < 35 mmHg. 18. There is no pulmonic regurgitation present. 19. The aortic root size is normal. 20. IVC Not well visulized. 21. There is no pericardial effusion. CLERICAL GRADER: Jody Pena RDCS
--- NOTE | 2019-08-07 15:14 | P.CNOR ---
<Abhilash Henry - Last Filed: 08/07/19 15:09> History of Present Illness - [facility] Consult date: 08/07/19 Requesting physician: Cristina Sanderson Consult reason: low back pain History of present illness: Patient is a pleasant 54-year-old male who is seen and examined at bedside for further evaluation for ongoing low back pain. Patient has been treated and evaluated in the hospital for significant medical diagnoses and has been admitted over the past 27 days. Patient was originally admitted for acute also pancreatitis and underwent open cholecystectomy for gallstones pancreatitis. He went into multisystem organ failure/sepsis he was intubated in the intensive care unit. He was also started on hemodialysis. Patient was eventually extubated and continues to be followed on the cardiac care unit. Patient also recently underwent ERCP as well as cholangiogram with sphincterectomy and balloon sweep of the common bile duct stent placement by Dr. Quintero after concerns for biliary leak. Patient is also developing a large pseudocyst measuring approximately 10 cm x 20 cm which is causing some compression a nteriorly to the abdominal wall which is currently being observed. They may be planning for interventional drainage of the pseudocyst. Patient continues to be seen sitting by multiple medical providers including general surgery and cardiology. Cardiology is planning to obtain an echocardiogram with Doppler study following a sinus tachycardia. Patient continues to have leukocytosis. Patient has a medical history which includes hearing loss and hypertension. He has not had any imaging in regards to his lumbar spine. Patient has been seen and examined by pain management is not currently planning any treatment or further evaluation due to his other significant diagnoses. In regards to his low back pain, patient states he has been experiencing ongoing low back pain over the past couple years. He denies specific injury. He denies any lower extremity weakness or radiculopathy bilaterally. His back pain has continued to be persistent since his admission and was present prior to admission. Past Medical History Past Medical History: Hearing Disorder / Deafness, Hypertension Additional Past Medical History / Comment(s): HAD A HEART MURMUR WHEN A CHILD- NEVER HEARD ANYTHING AFTER THAT ABOUT IT, SL. HEARLING LOSS YAMILA. EARS History of Any Multi-Drug Resistant Organisms: None Reported Past Surgical History: No Surgical Hx Reported Additional Past Surgical History / Comment(s): Colonoscopy with benign polypectomy Past Anesthesia/Blood Transfusion Reactions: No Reported Reaction Smoking Status: Current some day smoker - Past Family History Father Family Medical History: Coronary Artery Disease (CAD) Additional Family Medical History / Comment(s): Father had 4 vessel CABG Mother Family Medical History: Hypertension Medications and Allergies Home Medications Medication Instructions Recorded Confirmed Type Lisinopril-Hctz 10-12.5 mg 1 tab PO DAILY 05/30/19 07/11/19 History [Zestoretic 10-12.5] Multivitamins, Thera [Multivitamin 1 tab PO DAILY 07/11/19 07/11/19 History (formulary)] Allergies Allergy/AdvReac Type Severity Reaction Status Date / Time amoxicillin Allergy Rash/Hives Verified 07/11/19 08:00 Physical Examination Physical exam: Patient is awake, alert, and oriented 3 Vital signs stable Good chest excursion with deep inspiration and expiration Examination of lumbar spine reveals skin is intact with no abrasions, lacerations, or bruises; no erythema, purulence or signs of infection Dorsiflexion, plantarflexion, and extensor hallucis longus positive sustained bilaterally Lower extremity strength 5/5 bilaterally No lower extremity hyperreflexia bilaterally Straight leg test negative bilateral lower extremities Negative Lasegue's test bilaterally No signs or symptoms of DVT; no calf pain No pain with internal and external rotation of the hips bilaterally Neurovascularly intact Results - Labs Labs: Abnormal Lab Results - Last 24 Hours (Table) 08/06/19 08/06/19 08/06/19 Range/Units 05:33 05:33 12:33 WBC (3.8-10.6) k/uL RBC (4.30-5.90) m/uL Hgb (13.0-17.5) gm/dL Hct (39.0-53.0) % Neutrophils # (1.3-7.7) k/uL Monocytes # (0-1.0) k/uL Sodium (137-145) mmol/L BUN (9-20) mg/dL Creatinine (0.66-1.25) mg/dL Glucose (74-99) mg/dL POC Glucose (mg/dL) 135 H (75-99) mg/dL Alkaline Phosphatase (38-126) U/L Total Protein (6.3-8.2) g/dL Albumin (3.5-5.0) g/dL Amylase 122 H (30-110) U/L TSH 6.200 H (0.465-4.680) mIU/L 08/06/19 08/06/19 08/06/19 Range/Units 16:34 17:17 20:11 WBC (3.8-10.6) k/uL RBC (4.30-5.90) m/uL Hgb (13.0-17.5) gm/dL Hct (39.0-53.0) % Neutrophils # (1.3-7.7) k/uL Monocytes # (0-1.0) k/uL Sodium (137-145) mmol/L BUN (9-20) mg/dL Creatinine (0.66-1.25) mg/dL Glucose (74-99) mg/dL POC Glucose (mg/dL) 143 H 139 H (75-99) mg/dL Alkaline Phosphatase (38-126) U/L Total Protein (6.3-8.2) g/dL Albumin (3.5-5.0) g/dL Amylase 128 H (30-110) U/L TSH (0.465-4.680) mIU/L 08/07/19 08/07/19 08/07/19 Range/Units 05:43 05:43 06:09 WBC 13.9 H (3.8-10.6) k/uL RBC 2.85 L (4.30-5.90) m/uL Hgb 8.7 L (13.0-17.5) gm/dL Hct 27.2 L (39.0-53.0) % Neutrophils # 11.0 H (1.3-7.7) k/uL Monocytes # 1.2 H (0-1.0) k/uL Sodium 134 L (137-145) mmol/L BUN 77 H (9-20) mg/dL Creatinine 4.08 H (0.66-1.25) mg/dL Glucose 104 H (74-99) mg/dL POC Glucose (mg/dL) 129 H (75-99) mg/dL Alkaline Phosphatase 313 H (38-126) U/L Total Protein 6.2 L (6.3-8.2) g/dL Albumin 3.2 L (3.5-5.0) g/dL Amylase (30-110) U/L TSH (0.465-4.680) mIU/L Microbiology - Last 24 Hours (Table) 08/04/19 07:21 Blood Culture - Preliminary Blood No Growth after 48 hours H & H 07/11/19 07/12/19 07/12/19 Range/Units 06:30 07:13 21:45 Hgb 18.4 H 18.7 H 17.4 (13.0-17.5) gm/dL Hct 53.4 H 57.6 H* 55.2 H (39.0-53.0) % 07/13/19 07/13/19 07/14/19 Range/Units 04:46 21:02 03:35 Hgb 15.7 14.1 13.0 (13.0-17.5) gm/dL Hct 48.6 42.9 40.2 (39.0-53.0) % 07/15/19 07/16/19 07/17/19 Range/Units 04:05 04:00 04:45 Hgb 11.7 L 10.9 L 11.2 L (13.0-17.5) gm/dL Hct 36.3 L 33.4 L 33.7 L (39.0-53.0) % 07/17/19 07/17/19 07/18/19 Range/Units 14:45 18:40 04:30 Hgb 10.9 L 9.5 L 8.8 L (13.0-17.5) gm/dL Hct 33.1 L 29.2 L 26.0 L (39.0-53.0) % 07/18/19 07/19/19 07/20/19 Range/Units 13:30 04:00 04:25 Hgb 8.3 L 7.7 L 8.5 L (13.0-17.5) gm/dL Hct 25.7 L 23.0 L 25.9 L (39.0-53.0) % 07/21/19 07/22/19 07/22/19 Range/Units 05:00 05:15 17:30 Hgb 7.8 L 6.8 L* 7.5 L (13.0-17.5) gm/dL Hct 23.0 L 20.2 L 22.3 L (39.0-53.0) % 07/23/19 07/24/19 07/25/19 Range/Units 05:02 05:37 04:31 Hgb 7.3 L 7.3 L 7.0 L (13.0-17.5) gm/dL Hct 21.8 L 22.4 L 21.1 L (39.0-53.0) % 07/26/19 07/27/19 07/28/19 Range/Units 04:16 05:40 06:14 Hgb 7.2 L 6.4 L* 7.2 L (13.0-17.5) gm/dL Hct 23.5 L 20.4 L 22.3 L (39.0-53.0) % 07/29/19 07/30/19 08/01/19 Range/Units 05:30 06:02 05:44 Hgb 7.2 L 7.5 L 6.9 L* (13.0-17.5) gm/dL Hct 22.1 L 23.6 L 21.5 L (39.0-53.0) % 08/02/19 08/03/19 08/04/19 Range/Units 05:32 06:18 07:21 Hgb 9.0 L D 8.8 L 8.1 L (13.0-17.5) gm/dL Hct 28.4 L 27.4 L 25.5 L (39.0-53.0) % 08/05/19 08/06/19 08/07/19 Range/Units 06:50 05:33 05:43 Hgb 9.0 L 9.0 L 8.7 L (13.0-17.5) gm/dL Hct 27.5 L 27.4 L 27.2 L (39.0-53.0) % Coagulation 07/11/19 07/15/19 07/27/19 Range/Units 06:30 04:05 05:40 INR 0.9 1.0 1.1 (<1.2) Result Diagrams: 08/07/19 05:43 08/07/19 05:43 Assessment and Plan Assessment: Assessment: Chronic low back pain Acute gallstone pancreatitis with subsequent open cholecystectomy Biliary leak with ERCP as well as cholangiogram with sphincterectomy and balloon sweep of the common bile duct stent placement Acute kidney injury requiring hemodialysis Acute hypoxic respiratory failure secondary to pancreatitis and acute renal failure Sepsis with multi-organ failure Leukocytosis Sinus tachycardia History of alcoholism History of hypertension Bilateral hearing loss (1) History of alcoholism Current Visit: Yes Status: Acute Code(s): F10.21 - ALCOHOL DEPENDENCE, IN REMISSION SNOMED Code(s): 603888007 (2) History of hypertension Current Visit: Yes Status: Acute Code(s): Z86.79 - PERSONAL HISTORY OF OTHER DISEASES OF THE CIRCULATORY SYSTEM SNOMED Code(s): 450417137 (3) Bilateral hearing loss Current Visit: Yes Status: Acute Code(s): H91.93 - UNSPECIFIED HEARING LOSS, BILATERAL SNOMED Code(s): 19077348 (4) Sinus tachycardia Current Visit: Yes Status: Acute Code(s): R00.0 - TACHYCARDIA, UNSPECIFIED SNOMED Code(s): 72504521 (5) Acute gallstone pancreatitis Current Visit: Yes Status: Acute Code(s): K85.10 - BILIARY ACUTE PANCREATITIS WITHOUT NECROSIS OR INFECTION SNOMED Code(s): 665490200 (6) Acute renal failure on dialysis Current Visit: Yes Status: Acute Code(s): N17.9 - ACUTE KIDNEY FAILURE, UNSPECIFIED; Z99.2 - DEPENDENCE ON RENAL DIALYSIS SNOMED Code(s): 453409377862186 (7) Chronic lower back pain Current Visit: Yes Status: Acute Code(s): M54.5 - LOW BACK PAIN; G89.29 - OTHER CHRONIC PAIN SNOMED Code(s): 105580683 (8) Leukocytosis Current Visit: Yes Status: Acute Code(s): D72.829 - ELEVATED WHITE BLOOD CELL COUNT, UNSPECIFIED SNOMED Code(s): 866693156 (9) Pancreatitis Current Visit: Yes Status: Acute Code(s): K85.90 - ACUTE PANCREATITIS WITHOUT NECROSIS OR INFECTION, UNSP SNOMED Code(s): 55436006 (10) Sepsis Current Visit: Yes Status: Acute Code(s): A41.9 - SEPSIS, UNSPECIFIED ORGANISM SNOMED Code(s): 10040008 Plan: Plan: 1. After further discussion the patient and physical examination the patient, we will plan to obtain x-rays lumbar spine for further evaluation. Patient continues to experience ongoing low back pain. He has not any imaging performed in regards to his lumbar spine. We discussed based on those x-rays imaging findings, we may plan to obtain further imaging but further imaging doesn't necessarily need be performed during his admission to the hospital. He has chronic low back pain without injury. We did discuss treatment may be currently limited due to his other significant medical diagnoses including acute pa ncreatitis with open cholecystectomy with subsequent biliary leak and come bile duct stent placement. Patient's also significant acute medical diagnoses include acute kidney injury requiring hemodialysis. Patient also continues to have leukocytosis and sinus tachycardia. He's currently undergoing further workup with cardiology. We discussed we'll plan to obtain the lumbar x-rays imaging will follow up with further treatment options following the completion and review of this imaging. 2. Patient will continue be seeing him other medical providers including medicine, cardiology, Gen. surgery, pulmonology, infectious disease and nephrology Time with Patient: Greater than 30 (Including obtaining history, physical examination, reviewing of imaging, and dictation.) <Omid Petersen - Last Filed: 08/09/19 11:01> Physical Examination Osteopathic Statement: *. No significant issues noted on an osteopathic structural exam other than those noted in the History and Physical/Consult. Results - Labs Labs: Abnormal Lab Results - Last 24 Hours (Table) 08/08/19 08/08/19 08/08/19 Range/Units 11:38 16:40 20:43 WBC (3.8-10.6) k/uL RBC (4.30-5.90) m/uL Hgb (13.0-17.5) gm/dL Hct (39.0-53.0) % Neutrophils # (1.3-7.7) k/uL Sodium (137-145) mmol/L Chloride (98-107) mmol/L BUN (9-20) mg/dL Creatinine (0.66-1.25) mg/dL Glucose (74-99) mg/dL POC Glucose (mg/dL) 139 H 150 H 153 H (75-99) mg/dL 08/09/19 08/09/19 08/09/19 Range/Units 05:40 05:40 06:05 WBC 12.7 H (3.8-10.6) k/uL RBC 2.71 L (4.30-5.90) m/uL Hgb 8.3 L (13.0-17.5) gm/dL Hct 25.2 L (39.0-53.0) % Neutrophils # 10.2 H (1.3-7.7) k/uL Sodium 130 L (137-145) mmol/L Chloride 97 L (98-107) mmol/L BUN 59 H (9-20) mg/dL Creatinine 3.55 H (0.66-1.25) mg/dL Glucose 113 H (74-99) mg/dL POC Glucose (mg/dL) 118 H (75-99) mg/dL Microbiology - Last 24 Hours (Table) 08/04/19 07:21 Blood Culture - Preliminary Blood No Growth after 120 hours H & H 07/11/19 07/12/19 07/12/19 Range/Units 06:30 07:13 21:45 Hgb 18.4 H 18.7 H 17.4 (13.0-17.5) gm/dL Hct 53.4 H 57.6 H* 55.2 H (39.0-53.0) % 07/13/19 07/13/19 07/14/19 Range/Units 04:46 21:02 03:35 Hgb 15.7 14.1 13.0 (13.0-17.5) gm/dL Hct 48.6 42.9 40.2 (39.0-53.0) % 07/15/19 07/16/19 07/17/19 Range/Units 04:05 04:00 04:45 Hgb 11.7 L 10.9 L 11.2 L (13.0-17.5) gm/dL Hct 36.3 L 33.4 L 33.7 L (39.0-53.0) % 07/17/19 07/17/19 07/18/19 Range/Units 14:45 18:40 04:30 Hgb 10.9 L 9.5 L 8.8 L (13.0-17.5) gm/dL Hct 33.1 L 29.2 L 26.0 L (39.0-53.0) % 07/18/19 07/19/19 07/20/19 Range/Units 13:30 04:00 04:25 Hgb 8.3 L 7.7 L 8.5 L (13.0-17.5) gm/dL Hct 25.7 L 23.0 L 25.9 L (39.0-53.0) % 12/07/22/19 07/22/19 Range/Units 05:00 05:15 17:30 Hgb 7.8 L 6.8 L* 7.5 L (13.0-17.5) gm/dL Hct 23.0 L 20.2 L 22.3 L (39.0-53.0) % 07/23/19 07/24/19 07/25/19 Range/Units 05:02 05:37 04:31 Hgb 7.3 L 7.3 L 7.0 L (13.0-17.5) gm/dL Hct 21.8 L 22.4 L 21.1 L (39.0-53.0) % 07/26/19 07/27/19 07/28/19 Range/Units 04:16 05:40 06:14 Hgb 7.2 L 6.4 L* 7.2 L (13.0-17.5) gm/dL Hct 23.5 L 20.4 L 22.3 L (39.0-53.0) % 07/29/19 07/30/19 08/01/19 Range/Units 05:30 06:02 05:44 Hgb 7.2 L 7.5 L 6.9 L* (13.0-17.5) gm/dL Hct 22.1 L 23.6 L 21.5 L (39.0-53.0) % 08/02/19 08/03/19 08/04/19 Range/Units 05:32 06:18 07:21 Hgb 9.0 L D 8.8 L 8.1 L (13.0-17.5) gm/dL Hct 28.4 L 27.4 L 25.5 L (39.0-53.0) % 08/05/19 08/06/19 08/07/19 Range/Units 06:50 05:33 05:43 Hgb 9.0 L 9.0 L 8.7 L (13.0-17.5) gm/dL Hct 27.5 L 27.4 L 27.2 L (39.0-53.0) % 08/08/19 08/09/19 Range/Units 05:29 05:40 Hgb 9.3 L 8.3 L (13.0-17.5) gm/dL Hct 28.7 L 25.2 L (39.0-53.0) % Coagulation 07/11/19 07/15/19 07/27/19 Range/Units 06:30 04:05 05:40 INR 0.9 1.0 1.1 (<1.2) Result Diagrams: 08/09/19 05:40 08/09/19 05:40 Assessment and Plan Plan: Medications reviewed the images are reviewed. The patient has chronic low back pain and has been in the hospital for multiple issues with his pancreatitis and multiple medical problems. He is making some progress with his issues continues to have chronic low back pain. He is not having any neurologic deficit and I think it is okay to continue management for him on an outpatient basis in follow-up. He should also continue with conservative treatment and interventional pain management as directed.
[2019-08-07 16:51] LABS: Glucose,Whole Blood 108 mg/dL (75-99)
[2019-08-07] MEDS: PANTOPRAZOLE 40 MG TABLET PO SCH (17:19)
--- NOTE | 2019-08-07 19:24 | PN ---
PROGRESS NOTE DATE OF DICTATION: August 07, 2019 The patient is a 54-year-old pleasant white male admitted to the hospital 4 weeks ago with acute severe pancreatitis with acute kidney injury, presently on hemodialysis. He recovered gradually. He underwent laparoscopic cholecystectomy 2 weeks ago. He subsequently developed a postoperative bile leak 2 weeks later. He underwent an ERCP with CBD stent placement by Dr. Quintero 3 days ago. The patient is sitting up in the chair, doing much better. He reports no abdominal pain. He is on a full liquid diet, clear liquid diet, tolerating well. He denies any symptoms. MARICHUY drain is still in place with a small amount of bile noted. PHYSICAL EXAMINATION: Appears comfortable. No apparent distress. Vital signs stable. Blood pressure 133/86, pulse rate 99 per minute and afebrile. HEENT examination unremarkable. Conjunctivae pink. Sclerae anicteric. Oral cavity no lesions. NECK: No JVD or lymph node enlargement. CHEST: Clear to auscultation. ABDOMEN: Soft. There was mild tenderness in the epigastric area. The MARICHUY drain in place and had about 20 mL of bilious fluid noted. EXTREMITIES: No pedal edema. SKIN no rashes. NEUROLOGIC: Alert and oriented x3. No focal deficits. LABORATORY DATA: Labs from today noted. IMPRESSION: 1. Postoperative bile leak status post ERCP with CBD stent placement by Dr. Quintero 3 days ago. Patient doing much better. Bile leak has significantly improved. Only 20 mL of bile noted in the MARICHUY drain. 2. Severe acute pancreatitis for which the patient has been in the hospital for 4 weeks, gradually recovering. 3. Acute kidney injury on hemodialysis. RECOMMENDATIONS: 1. Continue with current management. 2. I recommended that he follow up with Dr. Quintero following discharge from the hospital for EGD with CBD stent removal in 6 weeks. 3. At this time, we will sign off. Please call us if needed. Thank you for this consultation. MMODL / IJN: [id number] /
--- NOTE | 2019-08-07 19:28 | P.PN ---
Progress Note - Text Progress Note Date: 08/07/19 interval history: This is a pleasant 54-year-old Patient of Dr. Malloy. Patient for about 2 y ears has had episodes of upper abdominal epigastric pain lasted for about half an hour. Started off about 2 years ago when he states the frequency is increased. More so frequently in the last 2 weeks. Day before presentation- morning patient became rather severe. Epigastric. With nausea vomiting. Had fever and chills. Also been getting heartburn. Patient drinks about 12 beers over the weekend. Otherwise in good health. Admitted with-acute cholecystitis with choledocholithiasis, acute gallstone pancreatitis. patient clinically deteriorated and was transferred to the ICU on July 13. Patient intubated.went into renal failure. Started hemodialysis. Patient underwent open cholecystectomy with gallstone removal on 07/17/2019. extubated July 21. Patient had a biliary leak had a biliary stent placed on August 04. On August 06 had a computed tomography scan showing large pseudocyst. Today-on medical floor. Had some nausea. Did tolerate some clear liquid diet. Patient's chronic low back pain has been bothering him. Orthopedic was consulted. Ordered lumbar x-ray. MARICHUY drain in place. Patient up in a chair. Review of systems: Was done for constitutional, cardiovascular, GI, pulmonary. relevant finding as above Active Medications Active Medications Acetaminophen (Tylenol Tab) 650 mg PO Q4HR PRN PRN Reason: Fever and/or Mild Pain Last Admin: 08/01/19 21:49 Dose: 650 mg Documented by: Hydrocodone Bitart/Acetaminophen ([place] 10) 1 each PO Q6H PRN PRN Reason: Moderate Pain Last Admin: 08/05/19 15:26 Dose: 1 each Documented by: Albuterol/Ipratropium (Duoneb 0.5 Mg-3 Mg/3 Ml Soln) 3 ml INHALATION RT-QID [facility] Last Admin: 08/07/19 15:58 Dose: 3 ml Documented by: Albuterol/Ipratropium (Duoneb 0.5 Mg-3 Mg/3 Ml Soln) 3 ml INHALATION RT-Q2H PRN PRN Reason: Shortness Of Breath Or Wheezing Calcium Acetate (Phoslo) 1,334 mg PO TID-W/MEALS [facility] Last Admin: 08/07/19 17:21 Dose: 1,334 mg Documented by: Calcium Carbonate/Glycine (Tums) 500 mg PO TID PRN PRN Reason: Heartburn Last Admin: 08/06/19 21:39 Dose: 500 mg Documented by: Darbepoetin Mj (Aranesp) 12.5 mcg SQ Q7D [facility] Last Admin: 08/05/19 12:49 Dose: 12.5 mcg Documented by: Fluconazole (Diflucan) 100 mg PO DAILY [facility] Last Admin: 08/07/19 08:54 Dose: 100 mg Documented by: Gabapentin (Neurontin) 100 mg PO HS [facility] Last Admin: 08/06/19 20:52 Dose: 100 mg Documented by: Heparin Sodium (Porcine) (Heparin) 5,000 unit SQ Q8HR [facility] Last Admin: 08/07/19 14:46 Dose: 5,000 unit Documented by: Hydromorphone HCl (Dilaudid) 0.5 mg IVP Q6HR PRN PRN Reason: Pain Scale 8 to 10 Last Admin: 08/07/19 14:46 Dose: 0.5 mg Documented by: Cefepime HCl 1 gm/ Sodium (Chloride) 50 mls @ 100 mls/hr IVPB DAILY [facility] Last Admin: 08/07/19 08:55 Dose: 100 mls/hr Documented by: Insulin Aspart (Novolog) 0 unit SQ ACHS [facility]; Protocol Last Admin: 08/07/19 17:13 Dose: Not Given Documented by: Lidocaine (Lidoderm) 1 patch TOPICAL DAILY [facility] Last Admin: 08/07/19 08:54 Dose: 1 patch Documented by: Magnesium Hydroxide (Milk Of Magnesia) 2,400 mg PO DAILY [facility] Last Admin: 08/07/19 08:26 Dose: Not Given Documented by: Melatonin (Melatonin) 3 mg PO HS PRN PRN Reason: Insomnia Last Admin: 08/04/19 20:42 Dose: 3 mg Documented by: Metoclopramide HCl (Reglan) 5 mg IVP Q6HR PRN PRN Reason: Nausea And Vomiting Last Admin: 08/06/19 21:36 Dose: 5 mg Documented by: Metoprolol Tartrate (Lopressor) 50 mg PO BID [facility] Midodrine (Proamatine) 10 mg PO DAILY PRN PRN Reason: HYPOTENSION WITH DIALYSIS Last Admin: 07/25/19 12:23 Dose: 10 mg Documented by: Naloxone HCl (Narcan) 0.2 mg IV Q2M PRN PRN Reason: Opioid Reversal Ondansetron HCl (Zofran) 4 mg IVP Q8HR PRN PRN Reason: Nausea And Vomiting Last Admin: 08/06/19 11:03 Dose: 4 mg Documented by: Pantoprazole Sodium (Protonix) 40 mg PO AC-BID [facility] Last Admin: 08/07/19 17:19 Dose: 40 mg Documented by: Sevelamer Carbonate (Renvela) 1,600 mg PO TID-W/MEALS [facility] Last Admin: 08/07/19 17:22 Dose: 1,600 mg Documented by: Physical examination: VITAL SIGNS: 98.3, 100, 20, 125/78, 97% room air GENERAL: Sitting up in a chair, awake EYES: Pupils equal. Conjunctiva normal. HEENT: External appearance of nose and ears normal, oral cavity grossly normal. NECK: JVD unable to assess, masses not palpable. HEART: First and second heart sounds are normal; some edema. LUNGS: Respiratory rate increased, decreased breath sounds. ABDOMEN: Soft, dressing over the incision, MARICHUY drain is present.- PSYCH: AAO 3, mood and affect normal NEUROLOGICAL: Cranial nerves grossly intact, moving all 4 limbs INVESTIGATIONS, reviewed in the clinical context: White count 13.9 hemoglobin 8.7 potassium 4.7 bun 77 creatinine 4.08 Previous testing White count 13 hemoglobin 18.4 pressures 59 progression 4.3 crit 1.16 Total bilirubin 2.9 AST 440 ALT 574 Amylase 2794, lipase greater than 20,000 Computed tomography scan-moderate peripancreatic fat stranding, gallstones and a distended gallbladder with gallbladder wall thickening. Abdominal ultrasound-gallbladder thickening with intermittent small stones. Pericholecystic fluid EKG tracing-personally reviewed by me shows normal sinus rhythm nonspecific T- wave changes blood culture and sputum culture both negative Computed tomography scan abdomen-on August 06-large pseudocyst Assessment: -Acute cholecystitis secondary to choledocholithiasis, with possible ascending cholangitis,causing sepsis, status post open cholecystectomy on July 17. -Acute postprocedure blood loss anemia as expected from surgery, -Acute gallstone pancreatitis, , improved -Acute renal failure, likely ATN from hepatorenal, , started on renal replacement therapy on July 15, slow to respond -Essential hypertension -Septic and hypovolemic shock, status post pressor support, -Obesity BMI 31 -Hyperkalemia in a patient does take LORENA inhibitor's the setting of renal failure -Severe metabolic acidosis with lactic acidosis, improved -Acute hypoxic severe respiratory failure secondary to noncardiogenic pulmonary edema status post ventilator support, extubated on July 21 -Symptomatic anemia from blood loss from the MARICHUY drain -Hypoalbuminemia, acute phase reactant -Large pseudocyst Plan: Patient be put on clear liquids. Is on IV cefepime. No other obvious source of infection. Discussed with the patient and . Orthopedics is following the patient for chronic low back pain. Patient's Dilaudid will be discontinued in 24 hours.
--- NOTE | 2019-08-07 20:23 | XR ---
EXAMINATION TYPE: XR lumbar spine 2 or 3V DATE OF EXAM: 08/07/2019 COMPARISON: NONE HISTORY: Back pain TECHNIQUE: 3 views FINDINGS: Lumbar vertebra have normal alignment. Disc spaces are fairly normal. Posterior elements ar e intact. There is no compression fracture. Sacroiliac joints appear intact. There are skin brad o jessica the midline abdomen. There is a biliary stent. There are skin brad over the right upper quadra nt. IMPRESSION: Negative lumbar spine exam. Multiple gas-filled loops of bowel consistent with ileus.
[2019-08-07 20:26] LABS: Glucose,Whole Blood 215 mg/dL (75-99)
[2019-08-07] MEDS: GABAPENTIN 100 MG CAP PO SCH (20:43)
[2019-08-07] MEDS: METOPROLOL TARTRATE 50 MG TAB PO SCH (20:43)
--- NOTE | 2019-08-07 22:50 | PN ---
PROGRESS NOTE DATE OF SERVICE: 08/07/2019 REASON FOR FOLLOWUP: Leukocytosis, pancreatic pseudocyst and possible cholangitis. INTERVAL HISTORY: The patient is currently afebrile. The patient has been breathing comfortably. The patient denies having any chest pain or cough. Abdominal pain is currently improved. No nausea, vomiting and no diarrhea. PHYSICAL EXAMINATION: Blood pressure is 132/87 with a pulse of 118, temperature of 99.1. He is 94% on room air. General description is a middle-aged male up in the bed in no distress. Respiratory system: Unlabored breathing. Decreased breath sounds at the bases. No wheeze or crackles. Heart S1, S2. Regular rate and rhythm. ABDOMEN: Soft. No tenderness. LABS: Hemoglobin 8.6, white count 13.8, BUN of 76, creatinine 4.08. DIAGNOSTIC IMPRESSION AND PLAN: Patient with leucocyte esterase which is multifactorial in this patient who did have a pancreatic pseudocyst and biliary leak with component of possible chemical peritonitis as well as ascending cholangitis not entirely excluded. The patient is currently on cefepime. White count showing a downward trend that will be continued. Monitor clinical course closely. MMODL / IJN: [id number] /
[2019-08-08] MEDS: HYDROmorphone 0.5 MG/0.5 ML SYRINGE IVP PRN (02:49)
[2019-08-08 06:03] LABS: Glucose,Whole Blood 104 mg/dL (75-99)
[2019-08-08] MEDS: INSULIN ASPART (NovoLOG) 100 UNIT/ML VIAL SQ SCH ×4 (06:07→21:05)
[2019-08-08 06:34] LABS: Basophils # (A) 0.2 k/uL (0-0.2); Basophils % (A) 1 %; Eosinophils # (A) 0.2 k/uL (0-0.7); Eosinophils % (A) 1 %; HCT 28.7 % (39.0-53.0); HGB 9.3 gm/dL (13.0-17.5); Hypochromasia Moderate; Lymphocytes # (A) 1.2 k/uL (1.0-4.8); Lymphocytes % (A) 9 %; MCH 30.6 pg (25.0-35.0); MCHC 32.3 g/dL (31.0-37.0); MCV 94.7 fL (80.0-100.0); Mean Platelet Volume 7.6; Monocytes # (A) 0.8 k/uL (0-1.0); Monocytes % (A) 6 %; Neutrophils % (A) 81 %; Platelet Count 301 k/uL (150-450); RBC 3.03 m/uL (4.30-5.90); RDW 13.5 % (11.5-15.5); WBC 13.6 k/uL (3.8-10.6)
[2019-08-08 06:53] LABS: Albumin 3.3 g/dL (3.5-5.0); Calcium 8.9 mg/dL (8.4-10.2); Potassium 4.4 mmol/L (3.5-5.1); Total Bilirubin 0.8 mg/dL (0.2-1.3); Total Protein 6.2 g/dL (6.3-8.2)
[2019-08-08] MEDS: CALCIUM ACETATE 667 MG TAB PO SCH ×3 (06:53→17:30)
[2019-08-08] MEDS: PANTOPRAZOLE 40 MG TABLET PO SCH ×2 (06:53→17:31)
[2019-08-08] MEDS: SEVELAMER 800 MG TAB PO SCH ×3 (06:53→17:30)
[2019-08-08] MEDS: IPRATROPIUM-ALBUTEROL 3 ML NEB INHALATION SCH ×4 (07:32→20:21)
--- NOTE | 2019-08-08 08:31 | XR ---
EXAMINATION TYPE: XR abdomen 2V DATE OF EXAM: 08/08/2019 COMPARISON: 08/01/2019 HISTORY: . TECHNIQUE: One view abdominal series FINDINGS: The osseous structures are intact. The bowel gas pattern is nonspecific. Surgical drain and brad are noted. Contrast is seen within colon. Remaining dilated bowel loops. Degenerative change spine. S ubsegmental changes at both lung bases. A biliary stent suggested. Correlate clinically. IMPRESSION: 1. Contrast is seen throughout the colon to the level the rectum with persistent dilated small bowel loops suggestive of ileus. 2. Postoperative drain and changes
[2019-08-08] MEDS: LIDOCAINE 5% PATCH TOPICAL SCH (08:51)
[2019-08-08] MEDS: CEFEPIME 1 GM in SODIUM CHLORIDE 0.9% 50 ML IVPB SCH (08:51)
[2019-08-08] MEDS: METOPROLOL TARTRATE 50 MG TAB PO SCH ×2 (08:52→21:05)
[2019-08-08] MEDS: HEPARIN SODIUM,PORCINE 5,000 UNIT/ML 1 ML VIAL SQ SCH ×3 (08:52→23:13)
[2019-08-08] MEDS: MAGNESIUM HYDROXIDE 2,400 MG/10 ML CUP PO SCH (08:52)
[2019-08-08] MEDS: FLUCONAZOLE 100 MG TAB PO SCH (08:53)
--- NOTE | 2019-08-08 09:04 | P.PN ---
Subjective Patient is seen in follow-up for acute kidney injury, currently hemodialysis dependent. Urine output not documented accurately. He does not have a Chaves catheter at this time. Edema improved. Currently awake and alert. Denies chest pain or shortness of breath. He is on clear liquid diet. Vital signs are stable. General: The patient appeared well nourished and normally developed. Intubated. HEENT: Head exam is unremarkable. Neck is without jugular venous distension. LUNGS: Lungs are clear to auscultation and percussion. Breath sounds decreased. HEART: Rate and Rhythm are regular. First and second heart sounds normal. No murmurs, rubs or gallops. ABDOMEN: Bowel sounds decreased. EXTREMITITES: 1+ edema. Objective - Vital Signs Vital signs: Vital Signs Temp 98.3 F 08/08/19 03:18 Pulse 108 H 08/08/19 07:44 Resp 16 08/08/19 03:20 BP 120/78 08/08/19 03:18 Pulse Ox 96 08/08/19 07:35 Intake & Output 08/07/19 08/08/19 08/08/19 18:59 06:59 18:59 Intake Total 270 20 480 Output Total 205 2825 Balance 65 -2805 480 Weight 102.5 kg Intake: IV 30 20 Invasive Line 8 30 20 Oral 240 480 Output: Drainage 25 Right Abdomen 25 Urine 325 Stool 180 Hemodialysis 2500 Other: Voiding Method Toilet Toilet Urinal Urinal # Voids 1 1 # Bowel Movements 1 ABP, PAP, CO, CI - Last Documented Arterial Blood Pressure 96/53 - Labs CBC & Chem 7: 08/08/19 05:29 08/08/19 05:29 Labs: Abnormal Lab Results - Last 24 Hours (Table) 08/07/19 08/07/19 08/07/19 Range/Units 11:29 16:35 20:24 WBC (3.8-10.6) k/uL RBC (4.30-5.90) m/uL Hgb (13.0-17.5) gm/dL Hct (39.0-53.0) % Neutrophils # (1.3-7.7) k/uL Sodium (137-145) mmol/L Chloride (98-107) mmol/L BUN (9-20) mg/dL Creatinine (0.66-1.25) mg/dL Glucose (74-99) mg/dL POC Glucose (mg/dL) 156 H 108 H 215 H (75-99) mg/dL Phosphorus (2.5-4.5) mg/dL Alkaline Phosphatase (38-126) U/L Total Protein (6.3-8.2) g/dL Albumin (3.5-5.0) g/dL 08/08/19 08/08/19 08/08/19 Range/Units 05:29 05:29 06:02 WBC 13.6 H (3.8-10.6) k/uL RBC 3.03 L (4.30-5.90) m/uL Hgb 9.3 L (13.0-17.5) gm/dL Hct 28.7 L (39.0-53.0) % Neutrophils # 11.0 H (1.3-7.7) k/uL Sodium 133 L (137-145) mmol/L Chloride 97 L (98-107) mmol/L BUN 50 H (9-20) mg/dL Creatinine 2.85 H (0.66-1.25) mg/dL Glucose 105 H (74-99) mg/dL POC Glucose (mg/dL) 104 H (75-99) mg/dL Phosphorus 5.0 H (2.5-4.5) mg/dL Alkaline Phosphatase 313 H (38-126) U/L Total Protein 6.2 L (6.3-8.2) g/dL Albumin 3.3 L (3.5-5.0) g/dL Microbiology - Last 24 Hours (Table) 08/04/19 07:21 Blood Culture - Preliminary Blood No Growth after 72 hours Assessment and Plan Plan: Assessment: 1. Acute kidney injury secondary to ATN secondary to septic shock, currently hemodialysis dependent. Started on hemodialysis July 15. Baseline creatinine is near 1 and peaked at greater than 8 this admission. Nonoliguric. 2. Volume overload. Partially due to third spacing due to hypoalbuminemia. Better. 3. Severe acute pancreatitis. ERCP was attempted earlier this admission. Status post open cholecystectomy on July 17. 4. Hyperphosphatemia secondary to acute kidney injury maintained on PhosLo and Renvela. Better. 5. Ileus, s/p TPN. 6. Metabolic acidosis secondary to acute kidney injury. Improved with dialysis. 7. Hyperkalemia secondary to acute kidney injury and metabolic acidosis. Resolved. 8. Hypervolemic hyponatremia. Stable. 9. Status post permacath placement July 28. 10. Anemia of chronic kidney disease. Maintained on Aranesp. Plan: Hemodialysis on Wednesday schedule. Avoid nephrotoxins. Continue to monitor renal function and urine output. manager operations following to set up outpatient hemodialysis. Will monitor for renal recovery outpatient.
--- NOTE | 2019-08-08 09:20 | CDI ---
Documentation Clarification Form Date: 08/08/2019 09:07:48 AM From: Ange Rodríguez CCS, CCDS Admit Date: 07/11/2019 07:50:00 AM Patient Name: Wm Antonio Visit Number: [id number] Discharge Date: ATTENTION: The Clinical Documentation Specialists (CDI) and [facility] Coding Staff appreciate your assistance in clarifying documentation. Please respond to the clarification below the line at the bottom and electronically sign. The CDI & [facility] Coding staff will review the response and follow-up if needed. Please note: Queries are made part of the Legal Health Record. If you have any questions, please contact the author of this message via ITS. Dr. Ge Carnes: Per the 08/07 nephrology progress note: Anemia of chronic kidney disease is documented without the stage of CKD. History/Risk Factors: Hypretension, Alcoholism, Smoker Clinical Indicators: Presented to ED on 07/11/2019 with abdominal pain, nausea, vomiting & diarrhea. Diagnosed with acute pancreatitis, acute cholecystitis secondary to choledocholithiasis & possible ascending cholangitis. Developed multisystem organ failure including SHIMA w/ATN. Admission BUN: 25. 07/15: 106^^. 07/24: 126^^. Current 50^ Admission Creatinine: (1.16). 07/15: 8.04^^. 07/24: 7.12^^. Current 2.85^ Patients Baseline BUN/CR/GFR: Unknown or not documented. Treatment: 07/13 ERCP, 07/20 Temporary dialysis catheter placement. 07/28 [facility] tunneled dialysis catheter placement. 08/04 Repeat ERCP w/stent placement. IV PPI, IV Reglan, IV Cefepime, IV Vanco, IV Dilaudid, IV Kefzol, INH Albuterol, IV Tylenol, IV Albumin, IV Lasix, IV Insulin. Intubated & on vent 07/16 - 07/21. In order to capture the severity of condition, please clarify if the condition signifies: CKD Stage 1 (GFR > 90) CKD Stage 2 (GFR 60-89) CKD Stage 3 (GFR 30-59) CKD Stage 4 (GFR 15-29) CKD Stage 5 (GFR <15) ESRD Other, please specify Unable to determine (Last Revision: October 2017) AKI, ATN; unable to determine MTDD
[2019-08-08 11:30] VITALS: BMI 30.6
[2019-08-08 11:45] LABS: Glucose,Whole Blood 139 mg/dL (75-99)
--- NOTE | 2019-08-08 12:24 | P.PN ---
Subjective Progress Note Date: 08/08/19 This is a 54-year-old gentleman who was admitted to the hospital 26 days ago with acute gallstone pancreatitis, patient underwent open cholecystectomy for gallstone pancreatitis and went into multisystem organ failure/sepsis he was intubated in the intensive care unit and also had to be initiated on hemodialysis. Patient was eventually extubated, is now being followed on the cardiac care unit. Cardiology consultation was requested because of sinus tachycardia. His blood pressure today 130/80 with a heart rate of 108, 95% on room air. Blood cell count 16.6, hemoglobin 9.0, platelet count 294. Sodium 132, potassium 4.5, BUN 60, creatinine 3.2. TSH level 6.2. Chin had concerns of a biliary leak and underwent an ERCP as well as cholangiogram with sphincterotomy and balloon sweep of the common bile duct and stent placement by . He was seen today by surgery, he is complaining of some nausea and indigestion today and still feels quite weak. Patient developed a large pseudocyst measuring approximately 10 x 20 cm which is compressing his stomach against the anterior abdominal wall which they are observing, if this does not resolve he may need an intervention for drainage of the pseudocyst. His EKG on presentation here showed a sinus tachycardia and continues to show sinus tachycardia this morning. This was performed on July 12. 08/07/2019 Patient seen and examined this morning, doing well overall, no complaints. Heart rate this morning around 100, blood pressure 127/79, 96% on room air.Echo is been performed but results are pending. We will increase his dose of beta harvinder this morning. 08/08/2019 Patient seen and examined this morning, blood pressure 138/78 with a heart rate of 104, 94% on room air.echocardiogram with Doppler study was performed which revealed an ejection fraction of 60-65%. Objective - Vital Signs Vital signs: Vital Signs Temp 98.2 F 08/08/19 11:12 Pulse 105 H 08/08/19 11:23 Resp 16 08/08/19 11:23 BP 139/79 08/08/19 11:12 Pulse Ox 94 L 08/08/19 11:12 Intake & Output 08/07/19 08/08/19 08/08/19 18:59 06:59 18:59 Intake Total 270 20 500 Output Total 205 2825 Balance 65 -2805 500 Weight 102.5 kg 102.5 kg Intake: IV 30 20 20 Invasive Line 8 30 20 20 Oral 240 480 Output: Drainage 25 Right Abdomen 25 Urine 325 Stool 180 Hemodialysis 2500 Other: Voiding Method Toilet Toilet Urinal Urinal # Voids 1 1 # Bowel Movements 1 ABP, PAP, CO, CI - Last Documented Arterial Blood Pressure 96/53 - Exam GENERAL: Revealed a 54-year-old white male,in no acute distress at the time of my examination. Head: Atraumatic, normocephalic. HEENT:: PERRLA, EOMI, neck disc, dry mucous membranes. NECK: No neck masses no JVD no stridor HEART: Normal S1 and S2, no S3 gallop. LUNGS: Diminished breath sounds and crackles at the bases no rhonchi and no wheezes. ABDOMEN: The abdomen was soft, non-tender, and without masses, organomegaly, or appreciable enlargement of the abdominal aorta.Bowel sounds are hypoactive at this point in time. No direct tenderness or rebound tenderness or guarding. No ascites.the patient has an incision in the right upper quadrant and the incision site is dry clean and intact and the patient has a MARICHUY drain in the right upper quadrant also. Bowel sounds are hypoactive. No direct tenderness. No rebound tenderness. No guarding. Scrotal edema. PSYCH: Calm mood, blunt affect, follows all simple instructions NEUROLOGICAL: Alert, oriented 2, generally weak, otherwise no gross focal defi cits. - Labs CBC & Chem 7: 08/08/19 05:29 08/08/19 05:29 Labs: Abnormal Lab Results - Last 24 Hours (Table) 08/07/19 08/07/19 08/08/19 Range/Units 16:35 20:24 05:29 WBC 13.6 H (3.8-10.6) k/uL RBC 3.03 L (4.30-5.90) m/uL Hgb 9.3 L (13.0-17.5) gm/dL Hct 28.7 L (39.0-53.0) % Neutrophils # 11.0 H (1.3-7.7) k/uL Sodium (137-145) mmol/L Chloride (98-107) mmol/L BUN (9-20) mg/dL Creatinine (0.66-1.25) mg/dL Glucose (74-99) mg/dL POC Glucose (mg/dL) 108 H 215 H (75-99) mg/dL Phosphorus (2.5-4.5) mg/dL Alkaline Phosphatase (38-126) U/L Total Protein (6.3-8.2) g/dL Albumin (3.5-5.0) g/dL 08/08/19 08/08/19 08/08/19 Range/Units 05:29 06:02 11:38 WBC (3.8-10.6) k/uL RBC (4.30-5.90) m/uL Hgb (13.0-17.5) gm/dL Hct (39.0-53.0) % Neutrophils # (1.3-7.7) k/uL Sodium 133 L (137-145) mmol/L Chloride 97 L (98-107) mmol/L BUN 50 H (9-20) mg/dL Creatinine 2.85 H (0.66-1.25) mg/dL Glucose 105 H (74-99) mg/dL POC Glucose (mg/dL) 104 H 139 H (75-99) mg/dL Phosphorus 5.0 H (2.5-4.5) mg/dL Alkaline Phosphatase 313 H (38-126) U/L Total Protein 6.2 L (6.3-8.2) g/dL Albumin 3.3 L (3.5-5.0) g/dL Microbiology - Last 24 Hours (Table) 08/04/19 07:21 Blood Culture - Preliminary Blood No Growth after 96 hours Assessment and Plan Plan: Impression and plan: #1 Acute gallstone pancreatitis. Status post open cholecystectomy #2 Severe pancreatitis, improving since surgery however the patient developed multiorgan system failure. However improving steadily #3 Acute hypoxic respiratory failure secondary to pulmonary edema and pleural effusions secondary to pancreatitis and acute renal failure. #4 Acute kidney injury requiring hemodialysis and he continues to require hemodialysis #5 Fever and leukocytosis with hypotension, improving, remains on empiric antibiotics, #6 History of alcoholism. #7 History of hypertension. #8 Bilateral hearing loss. #9 Leukocytosis most likely secondary to sepsis. CT of the abdomen and pelvis s howed pseudocyst, no plans for any surgical intervention. #10 Suspect metabolic encephalopathy. 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 #12 sinus tachycardia, likely secondary to sepsis and patient's other current medical concerns. Plan echocardiogram with Doppler study revealed a normal left ventricular systolic function, we will increase beta harvinder to 75 mg 3 times a day today. We will f ollow this patient along with you now on an as-needed basis only, please don't hesitate to call with any questions. DNP note has been reviewed, I agree with a documented findings and plan of care. Patient was seen and examined.
--- NOTE | 2019-08-08 12:47 | P.PN ---
Subjective Progress Note Date: 08/08/19 CHIEF COMPLAINT: Abdominal pain HISTORY OF PRESENT ILLNESS: Patient is status post open cholecystectomy. Also s/p ERCP with stent placement for bile duct leak. Patient examined at the bedside. He denies abdominal pain. Denies nausea or vomiting. He is tolerating diet. Reports passing flatus. He had an abdominal xray that revealed possible ileus. PHYSICAL EXAM: VITAL SIGNS: Reviewed GENERAL: Well-developed in no acute distress. HEENT: No sclera icterus. Extraocular movements grossly intact. Moist buccal mucosa. Head is atraumatic, normocephalic. Hears conversational speech. No nasal drainage. CHEST: Non-labored respirations and equal bilateral excursions. ABDOMEN: Soft. Nondistended. Dressing CDI. MARICHUY with bile drainage. PSYCH: Appropriate affect. Alert and oriented. SKIN: Well perfused. Good skin turgor. ASSESSMENT: 1. Abdominal pain 2. Cholelithiasis, s/p open cholecystectomy 3. Pancreatitis 4. Hyperbilirubinemia 5. Transaminitis 6. Acute renal failure, on hemodialysis 7. Suspected bile leak 8. Large fluid collection at pancreas PLAN: Advance diet to full liquid. May advance as tolerated. No clinical evidence of Ileus. Continue to monitor pseudocyst of the pancreas. Possible intervention and drainage if necessary Nurse practitioner note has been reviewed by physician. Signing provider agrees with the documented findings, assessment, and plan of care. Objective - Vital Signs Vital signs: Vital Signs Temp 98.2 F 08/08/19 11:12 Pulse 105 H 08/08/19 11:23 Resp 16 08/08/19 11:23 BP 139/79 08/08/19 11:12 Pulse Ox 94 L 08/08/19 11:12 Intake & Output 08/07/19 08/08/19 08/08/19 18:59 06:59 18:59 Intake Total 270 20 740 Output Total 205 2825 Balance 65 -2805 740 Weight 102.5 kg 102.5 kg Intake: IV 30 20 20 Invasive Line 8 30 20 20 Oral 240 720 Output: Drainage 25 Right Abdomen 25 Urine 325 Stool 180 Hemodialysis 2500 Other: Voiding Method Toilet Toilet Urinal Urinal # Voids 1 1 1 # Bowel Movements 1 ABP, PAP, CO, CI - Last Documented Arterial Blood Pressure 96/53 - Labs CBC & Chem 7: 08/08/19 05:29 08/08/19 05:29 Labs: Abnormal Lab Results - Last 24 Hours (Table) 08/07/19 08/07/19 08/08/19 Range/Units 16:35 20:24 05:29 WBC 13.6 H (3.8-10.6) k/uL RBC 3.03 L (4.30-5.90) m/uL Hgb 9.3 L (13.0-17.5) gm/dL Hct 28.7 L (39.0-53.0) % Neutrophils # 11.0 H (1.3-7.7) k/uL Sodium (137-145) mmol/L Chloride (98-107) mmol/L BUN (9-20) mg/dL Creatinine (0.66-1.25) mg/dL Glucose (74-99) mg/dL POC Glucose (mg/dL) 108 H 215 H (75-99) mg/dL Phosphorus (2.5-4.5) mg/dL Alkaline Phosphatase (38-126) U/L Total Protein (6.3-8.2) g/dL Albumin (3.5-5.0) g/dL 08/08/19 08/08/19 08/08/19 Range/Units 05:29 06:02 11:38 WBC (3.8-10.6) k/uL RBC (4.30-5.90) m/uL Hgb (13.0-17.5) gm/dL Hct (39.0-53.0) % Neutrophils # (1.3-7.7) k/uL Sodium 133 L (137-145) mmol/L Chloride 97 L (98-107) mmol/L BUN 50 H (9-20) mg/dL Creatinine 2.85 H (0.66-1.25) mg/dL Glucose 105 H (74-99) mg/dL POC Glucose (mg/dL) 104 H 139 H (75-99) mg/dL Phosphorus 5.0 H (2.5-4.5) mg/dL Alkaline Phosphatase 313 H (38-126) U/L Total Protein 6.2 L (6.3-8.2) g/dL Albumin 3.3 L (3.5-5.0) g/dL Microbiology - Last 24 Hours (Table) 08/04/19 07:21 Blood Culture - Preliminary Blood No Growth after 96 hours
[2019-08-08] MEDS: HYDROcodone/APAP 10-325MG 1 EACH TAB PO PRN (14:46)
[2019-08-08 17:01] LABS: Glucose,Whole Blood 150 mg/dL (75-99)
--- NOTE | 2019-08-08 20:03 | P.PN ---
Progress Note - Text Progress Note Date: 08/08/19 interval history: This is a pleasant 54-year-old Patient of Dr. Malloy. Patient for about 2 y ears has had episodes of upper abdominal epigastric pain lasted for about half an hour. Started off about 2 years ago when he states the frequency is increased. More so frequently in the last 2 weeks. Day before presentation- morning patient became rather severe. Epigastric. With nausea vomiting. Had fever and chills. Also been getting heartburn. Patient drinks about 12 beers over the weekend. Otherwise in good health. Admitted with-acute cholecystitis with choledocholithiasis, acute gallstone pancreatitis. patient clinically deteriorated and was transferred to the ICU on July 13. Patient intubated.went into renal failure. Started hemodialysis. Patient underwent open cholecystectomy with gallstone removal on 07/17/2019. extubated July 21. Patient had a biliary leak had a biliary stent placed on August 04. On August 06 had a computed tomography scan showing large pseudocyst. Today-feeding better. Did tolerate a liquid diet. Had a bowel movement. at the bedside. Chronic low back pain.. Review of systems: Was done for constitutional, cardiovascular, GI, pulmonary. relevant finding as above Active Medications Acetaminophen (Tylenol Tab) 650 mg PO Q4HR PRN PRN Reason: Fever and/or Mild Pain Last Admin: 08/01/19 21:49 Dose: 650 mg Documented by: Hydrocodone Bitart/Acetaminophen ([place] 10) 1 each PO Q6H PRN PRN Reason: Moderate Pain Last Admin: 08/08/19 14:46 Dose: 1 each Documented by: Albuterol/Ipratropium (Duoneb 0.5 Mg-3 Mg/3 Ml Soln) 3 ml INHALATION RT-QID [facility] Last Admin: 08/08/19 15:14 Dose: 3 ml Documented by: Albuterol/Ipratropium (Duoneb 0.5 Mg-3 Mg/3 Ml Soln) 3 ml INHALATION RT-Q2H PRN PRN Reason: Shortness Of Breath Or Wheezing Calcium Acetate (Phoslo) 1,334 mg PO TID-W/MEALS [facility] Last Admin: 08/08/19 17:30 Dose: 1,334 mg Documented by: Calcium Carbonate/Glycine (Tums) 500 mg PO TID PRN PRN Reason: Heartburn Last Admin: 08/06/19 21:39 Dose: 500 mg Documented by: Darbepoetin Mj (Aranesp) 12.5 mcg SQ Q7D [facility] Last Admin: 08/05/19 12:49 Dose: 12.5 mcg Documented by: Fluconazole (Diflucan) 100 mg PO DAILY [facility] Last Admin: 08/08/19 08:53 Dose: 100 mg Documented by: Gabapentin (Neurontin) 100 mg PO HS [facility] Last Admin: 08/07/19 20:43 Dose: 100 mg Documented by: Heparin Sodium (Porcine) (Heparin) 5,000 unit SQ Q8HR [facility] Last Admin: 08/08/19 17:31 Dose: 5,000 unit Documented by: Cefepime HCl 1 gm/ Sodium (Chloride) 50 mls @ 100 mls/hr IVPB DAILY [facility] Last Admin: 08/08/19 08:51 Dose: 100 mls/hr Documented by: Insulin Aspart (Novolog) 0 unit SQ ACHS [facility]; Protocol Last Admin: 08/08/19 17:31 Dose: 1 unit Documented by: Lidocaine (Lidoderm) 1 patch TOPICAL DAILY [facility] Last Admin: 08/08/19 08:51 Dose: 1 patch Documented by: Magnesium Hydroxide (Milk Of Magnesia) 2,400 mg PO DAILY [facility] Last Admin: 08/08/19 08:52 Dose: 2,400 mg Documented by: Melatonin (Melatonin) 3 mg PO HS PRN PRN Reason: Insomnia Last Admin: 08/04/19 20:42 Dose: 3 mg Documented by: Metoclopramide HCl (Reglan) 5 mg IVP Q6HR PRN PRN Reason: Nausea And Vomiting Last Admin: 08/06/19 21:36 Dose: 5 mg Documented by: Metoprolol Tartrate (Lopressor) 50 mg PO BID [facility] Last Admin: 08/08/19 08:52 Dose: 50 mg Documented by: Midodrine (Proamatine) 10 mg PO DAILY PRN PRN Reason: HYPOTENSION WITH DIALYSIS Last Admin: 07/25/19 12:23 Dose: 10 mg Documented by: Naloxone HCl (Narcan) 0.2 mg IV Q2M PRN PRN Reason: Opioid Reversal Ondansetron HCl (Zofran) 4 mg IVP Q8HR PRN PRN Reason: Nausea And Vomiting Last Admin: 08/06/19 11:03 Dose: 4 mg Documented by: Pantoprazole Sodium (Protonix) 40 mg PO AC-BID [facility] Last Admin: 08/08/19 17:31 Dose: 40 mg Documented by: Sevelamer Carbonate (Renvela) 1,600 mg PO TID-W/MEALS [facility] Last Admin: 08/08/19 17:30 Dose: 1,600 mg Documented by: Physical examination: VITAL SIGNS: 97.5, 120, 20, 122/73, but 6% room air GENERAL: Propped up in bed, awake EYES: Pupils equal. Conjunctiva normal. HEENT: External appearance of nose and ears normal, oral cavity grossly normal. NECK: JVD unable to assess, masses not palpable. HEART: First and second heart sounds are normal; some edema. LUNGS: Respiratory rate increased, decreased breath sounds. ABDOMEN: Soft, dressing over the incision, MARICHUY drain is present.- PSYCH: AAO 3, mood and affect normal NEUROLOGICAL: Cranial nerves grossly intact, moving all 4 limbs INVESTIGATIONS, reviewed in the clinical context: White count 8.6 hemoglobin 9.3 bun 50 creatine 2.85 Previous testing White count 13 hemoglobin 18.4 pressures 59 progression 4.3 crit 1.16 Total bilirubin 2.9 AST 440 ALT 574 Amylase 2794, lipase greater than 20,000 Computed tomography scan-moderate peripancreatic fat stranding, gallstones and a distended gallbladder with gallbladder wall thickening. Abdominal ultrasound-gallbladder thickening with intermittent small stones. Pericholecystic fluid EKG tracing-personally reviewed by me shows normal sinus rhythm nonspecific T-wa ve changes blood culture and sputum culture both negative Computed tomography scan abdomen-on August 06-large pseudocyst Assessment: -Acute cholecystitis secondary to choledocholithiasis, with possible ascending cholangitis,causing sepsis, status post open cholecystectomy on July 17. -Acute postprocedure blood loss anemia as expected from surgery, -Acute gallstone pancreatitis, , improved -Acute renal failure, likely ATN from hepatorenal, , started on renal replacement therapy on July 15, slow to respond -Essential hypertension -Septic and hypovolemic shock, status post pressor support, -Obesity BMI 31 -Hyperkalemia in a patient does take LORENA inhibitor's the setting of renal failure -Severe metabolic acidosis with lactic acidosis, improved -Acute hypoxic severe respiratory failure secondary to noncardiogenic pulmonary edema status post ventilator support, extubated on July 21 -Symptomatic anemia from blood loss from the MARICHUY drain -Hypoalbuminemia, acute phase reactant -Large pseudocyst Plan: Patient on clear liquids. Had a lengthy talk with the patient and the . IV Dilaudid was discontinued. We to cut back on her narcotic pain medications. His lower back pain is chronic. Patient is to increase activity. Keep that has been ordered. Lower back pain. Informed by social sciences professor that insurance paperwork to take at least 3 or 4 more days. Patient using a walker to ambulate.
[2019-08-08 20:44] LABS: Glucose,Whole Blood 153 mg/dL (75-99)
[2019-08-08] MEDS: GABAPENTIN 100 MG CAP PO SCH (21:05)
--- NOTE | 2019-08-08 23:39 | PN ---
PROGRESS NOTE DATE OF SERVICE: 08/08/2019 REASON FOR FOLLOWUP: Gallstone pancreatitis, biliary leak, and a question of ascending cholangitis. INTERVAL HISTORY: The patient is currently afebrile. The patient has been breathing comfortably. Denies having any chest pain or any cough. No nausea, vomiting. No abdominal pain or diarrhea. PHYSICAL EXAMINATION: Blood pressure 124/77 with a pulse of 106, temperature 98.8. He is 95% on room air. General description is a middle-aged male lying in bed in no distress. RESPIRATORY SYSTEM: Unlabored breathing with decreased breath sounds at the base. No wheeze. HEART: S1, S2. Regular rate and rhythm. ABDOMEN: Soft. No tenderness. LABS: Hemoglobin 9.3, white count 13.6, BUN of 15, creatinine 2.85. Culture repeat is so far negative. DIAGNOSTIC IMPRESSION AND PLAN: Patient with leukocytosis in this patient who did have gallstone pancreatitis, status post open cholecystectomy; subsequently did have a biliary leak with concern for chemical peritonitis and ascending cholangitis. Cultures remain negative. White count stays around 13,000. Currently on cefepime; to continue and monitor clinical course closely. MMODL / IJN: [id number] /
[2019-08-09] MEDS: HYDROcodone/APAP 10-325MG 1 EACH TAB PO PRN ×2 (01:37→17:42)
[2019-08-09 06:19] LABS: Glucose,Whole Blood 118 mg/dL (75-99)
[2019-08-09 06:26] LABS: Basophils # (A) 0.1 k/uL (0-0.2); Basophils % (A) 1 %; Eosinophils # (A) 0.2 k/uL (0-0.7); Eosinophils % (A) 1 %; HCT 25.2 % (39.0-53.0); HGB 8.3 gm/dL (13.0-17.5); Hypochromasia Slight; Lymphocytes # (A) 1.1 k/uL (1.0-4.8); Lymphocytes % (A) 9 %; MCH 30.6 pg (25.0-35.0); MCHC 32.9 g/dL (31.0-37.0); Mean Platelet Volume 7.3; Monocytes # (A) 0.9 k/uL (0-1.0); Monocytes % (A) 7 %; Neutrophils # (A) 10.2 k/uL (1.3-7.7); Neutrophils % (A) 80 %; Platelet Count 256 k/uL (150-450); RBC 2.71 m/uL (4.30-5.90); RDW 13.7 % (11.5-15.5); WBC 12.7 k/uL (3.8-10.6)
[2019-08-09] MEDS: INSULIN ASPART (NovoLOG) 100 UNIT/ML VIAL SQ SCH ×4 (06:26→21:06)
[2019-08-09] MEDS: CALCIUM ACETATE 667 MG TAB PO SCH ×3 (06:47→16:05)
[2019-08-09] MEDS: PANTOPRAZOLE 40 MG TABLET PO SCH ×2 (06:48→16:05)
[2019-08-09] MEDS: SEVELAMER 800 MG TAB PO SCH ×3 (06:48→16:06)
[2019-08-09 06:50] LABS: Calcium 8.8 mg/dL (8.4-10.2); Potassium 4.4 mmol/L (3.5-5.1)
[2019-08-09] MEDS: MAGNESIUM HYDROXIDE 2,400 MG/10 ML CUP PO SCH (08:10)
[2019-08-09] MEDS: LIDOCAINE 5% PATCH TOPICAL SCH (08:14)
[2019-08-09] MEDS: HEPARIN SODIUM,PORCINE 5,000 UNIT/ML 1 ML VIAL SQ SCH ×3 (08:14→23:17)
[2019-08-09] MEDS: CEFEPIME 1 GM in SODIUM CHLORIDE 0.9% 50 ML IVPB SCH (08:14)
[2019-08-09] MEDS: FLUCONAZOLE 100 MG TAB PO SCH (08:14)
[2019-08-09] MEDS: METOPROLOL TARTRATE 50 MG TAB PO SCH ×2 (08:15→21:06)
[2019-08-09] MEDS: IPRATROPIUM-ALBUTEROL 3 ML NEB INHALATION SCH ×4 (09:02→19:33)
--- NOTE | 2019-08-09 09:45 | P.PN ---
Subjective Patient is seen in follow-up for acute kidney injury, currently hemodialysis dependent. Urine output not documented accurately. He does not have a Chaves catheter at this time. Edema improved. Currently awake and alert. Denies chest pain or shortness of breath. He's been tolerating oral intake. However he vomited this morning. Vital signs are stable. General: The patient appeared well nourished and normally developed. Intubated. HEENT: Head exam is unremarkable. Neck is without jugular venous distension. LUNGS: Lungs are clear to auscultation and percussion. Breath sounds decreased. HEART: Rate and Rhythm are regular. First and second heart sounds normal. No murmurs, rubs or gallops. ABDOMEN: Bowel sounds decreased. EXTREMITITES: 1+ edema. Objective - Vital Signs Vital signs: Vital Signs Temp 98.1 F 08/09/19 08:00 Pulse 110 H 08/09/19 09:17 Resp 18 08/09/19 08:00 BP 139/70 08/09/19 08:00 Pulse Ox 97 08/09/19 08:00 Intake & Output 08/08/19 08/09/19 08/09/19 18:59 06:59 18:59 Intake Total 960 440 Output Total 60 260 Balance 900 -260 440 Weight 102.5 kg 104 kg Intake: IV 30 Invasive Line 8 30 Oral 930 440 Output: Urine 200 Stool 60 60 Other: Voiding Method Toilet Toilet Urinal Urinal # Voids 1 1 ABP, PAP, CO, CI - Last Documented Arterial Blood Pressure 96/53 - Labs CBC & Chem 7: 08/09/19 05:40 08/09/19 05:40 Labs: Abnormal Lab Results - Last 24 Hours (Table) 08/08/19 08/08/19 08/08/19 Range/Units 11:38 16:40 20:43 WBC (3.8-10.6) k/uL RBC (4.30-5.90) m/uL Hgb (13.0-17.5) gm/dL Hct (39.0-53.0) % Neutrophils # (1.3-7.7) k/uL Sodium (137-145) mmol/L Chloride (98-107) mmol/L BUN (9-20) mg/dL Creatinine (0.66-1.25) mg/dL Glucose (74-99) mg/dL POC Glucose (mg/dL) 139 H 150 H 153 H (75-99) mg/dL 08/09/19 08/09/19 08/09/19 Range/Units 05:40 05:40 06:05 WBC 12.7 H (3.8-10.6) k/uL RBC 2.71 L (4.30-5.90) m/uL Hgb 8.3 L (13.0-17.5) gm/dL Hct 25.2 L (39.0-53.0) % Neutrophils # 10.2 H (1.3-7.7) k/uL Sodium 130 L (137-145) mmol/L Chloride 97 L (98-107) mmol/L BUN 59 H (9-20) mg/dL Creatinine 3.55 H (0.66-1.25) mg/dL Glucose 113 H (74-99) mg/dL POC Glucose (mg/dL) 118 H (75-99) mg/dL Microbiology - Last 24 Hours (Table) 08/04/19 07:21 Blood Culture - Preliminary Blood No Growth after 120 hours Assessment and Plan Plan: Assessment: 1. Acute kidney injury secondary to ATN secondary to septic shock, currently hemodialysis dependent. Started on hemodialysis July 15. Baseline creatinine is near 1 and peaked at greater than 8 this admission. Nonoliguric. 2. Volume overload. Partially due to third spacing due to hypoalbuminemia. Better. 3. Severe acute pancreatitis. ERCP was attempted earlier this admission. Status post open cholecystectomy on July 17. 4. Hyperphosphatemia secondary to acute kidney injury maintained on PhosLo and Renvela. Better. 5. Ileus, s/p TPN. 6. Metabolic acidosis secondary to acute kidney injury. Improved with dialysis. 7. Hyperkalemia secondary to acute kidney injury and metabolic acidosis. Resolved. 8. Hypervolemic hyponatremia. Stable. 9. Status post permacath placement July 28. 10. Anemia of chronic kidney disease. Maintained on Aranesp. Plan: Hemodialysis on Wednesday schedule. Avoid nephrotoxins. Continue to monitor renal function and urine output. assistant kitchen manager following to set up outpatient hemodialysis. Will monitor for renal recovery outpatient.
--- NOTE | 2019-08-09 11:02 | P.PN ---
Subjective Progress Note Date: 08/09/19 CHIEF COMPLAINT: Abdominal pain HISTORY OF PRESENT ILLNESS: Patient is status post open cholecystectomy. Also s/p ERCP with stent placement for bile duct leak. Patient examined at the bedside. He denies abdominal pain. Patient reports eating a large breakfast this morning including two bowls of cereal and fruit. He reports throwing up after eating. Denies further nausea or vomiting since that time. Passing flatus. BM yesterday. PHYSICAL EXAM: VITAL SIGNS: Reviewed GENERAL: Well-developed in no acute distress. HEENT: No sclera icterus. Extraocular movements grossly intact. Moist buccal mucosa. Head is atraumatic, normocephalic. Hears conversational speech. No nasal drainage. CHEST: Non-labored respirations and equal bilateral excursions. ABDOMEN: Soft. Nondistended. Zaki to abdominal incision. MARICHUY with bile drainage. PSYCH: Appropriate affect. Alert and oriented. SKIN: Well perfused. Good skin turgor. ASSESSMENT: 1. Abdominal pain 2. Cholelithiasis, s/p open cholecystectomy 3. Pancreatitis 4. Hyperbilirubinemia 5. Transaminitis 6. Acute renal failure, on hemodialysis 7. Bile leak 8. Large fluid collection at pancreas PLAN: Patient with large pseudocyst that is compressing the stomach. Patient has been tolerating diet and was advanced to a regular diet. This morning he had an episode of vomiting. Will decrease diet back to full liquid. Anticipate patient will tolerate full liquid diet better due to compression of stomach from pseudocyst Nurse practitioner note has been reviewed by physician. Signing provider agrees with the documented findings, assessment, and plan of care. Objective - Vital Signs Vital signs: Vital Signs Temp 98.1 F 08/09/19 08:00 Pulse 110 H 08/09/19 09:17 Resp 18 08/09/19 08:00 BP 139/70 08/09/19 08:00 Pulse Ox 97 08/09/19 08:00 Intake & Output 08/08/19 08/09/19 08/09/19 18:59 06:59 18:59 Intake Total 960 440 Output Total 60 260 Balance 900 -260 440 Weight 102.5 kg 104 kg Intake: IV 30 Invasive Line 8 30 Oral 930 440 Output: Urine 200 Stool 60 60 Other: Voiding Method Toilet Toilet Toilet Urinal Urinal Urinal # Voids 1 1 ABP, PAP, CO, CI - Last Documented Arterial Blood Pressure 96/53 - Labs CBC & Chem 7: 08/09/19 05:40 08/09/19 05:40 Labs: Abnormal Lab Results - Last 24 Hours (Table) 08/08/19 08/08/19 08/08/19 Range/Units 11:38 16:40 20:43 WBC (3.8-10.6) k/uL RBC (4.30-5.90) m/uL Hgb (13.0-17.5) gm/dL Hct (39.0-53.0) % Neutrophils # (1.3-7.7) k/uL Sodium (137-145) mmol/L Chloride (98-107) mmol/L BUN (9-20) mg/dL Creatinine (0.66-1.25) mg/dL Glucose (74-99) mg/dL POC Glucose (mg/dL) 139 H 150 H 153 H (75-99) mg/dL 08/09/19 08/09/19 08/09/19 Range/Units 05:40 05:40 06:05 WBC 12.7 H (3.8-10.6) k/uL RBC 2.71 L (4.30-5.90) m/uL Hgb 8.3 L (13.0-17.5) gm/dL Hct 25.2 L (39.0-53.0) % Neutrophils # 10.2 H (1.3-7.7) k/uL Sodium 130 L (137-145) mmol/L Chloride 97 L (98-107) mmol/L BUN 59 H (9-20) mg/dL Creatinine 3.55 H (0.66-1.25) mg/dL Glucose 113 H (74-99) mg/dL POC Glucose (mg/dL) 118 H (75-99) mg/dL Microbiology - Last 24 Hours (Table) 08/04/19 07:21 Blood Culture - Preliminary Blood No Growth after 120 hours
--- NOTE | 2019-08-09 16:50 | P.PN ---
Progress Note - Text Progress Note Date: 08/09/19 Orthopedic spine: History of present illness: Patient is a pleasant 54-year-old male who is seen and examined at bedside for follow-up evaluation for ongoing low back pain. X-ray imaging has been ordered, performed, and reviewed. Patient is any change in his ongoing low back pain. His low back pain is chronic. Patient has been treated and evaluated in the hospital for significant medical diagnoses and has been admitted over the past 29 days. Patient was originally admitted for acute also pancreatitis and underwent open cholecystectomy for gallstones pancreatitis. He went into multisystem organ failure/sepsis he was intubated in the intensive care unit. He was also started on hemodialysis. Patient was eventually extubated and continues to be followed on the cardiac care unit. Patient also recently underwent ERCP as well as cholangiogram with sphincterectomy and balloon sweep of the common bile duct stent placement by Dr. Quintero after concerns for biliary leak. Patient is also developing a large pseudocyst measuring approximately 10 cm x 20 cm which is causing some compression anteriorly to the abdominal wall which is currently being observed. They may be planning for interventional drainage of the pseudocyst. Patient continues to be seen sitting by multiple medical providers including general surgery and cardiology. Patient has a medical history which includes hearing loss and hypertension. He has not had any imaging in regards to his lumbar spine. Patient has been seen and examined by pain management is not currently planning any treatment or further evaluation due to his other significant diagnoses. In regards to his low back pain, patient states he has been experiencing ongoing low back pain over the past couple years. He states his pain is most significant in the morning and improves throughout the day. He has not worked through conservative treatment. He denies specific injury. He denies any lower extremity weakness or radiculopathy bilaterally. His back pain has continued to be persistent since his admission and was present prior to admission. He does feel overall he is making progress with the past couple days. He has been able to ambulate the hallways today. Physical exam: Patient is awake, alert, and oriented 3 Vital signs stable Good chest excursion with deep inspiration and expiration Examination of lumbar spine reveals skin is intact with no abrasions, lacerations, or bruises; no erythema, purulence or signs of infection Dorsiflexion, plantarflexion, and extensor hallucis longus positive sustained bilaterally Lower extremity strength 5/5 bilaterally No lower extremity hyperreflexia bilaterally Straight leg test negative bilateral lower extremities Negative Lasegue's test bilaterally No signs or symptoms of DVT; no calf pain No pain with internal and external rotation of the hips bilaterally Neurovascularly intact Pertinent studies: X-rays lumbar spine taken on 08/07/2019: Overall alignment is adequately maintained; no evidence of significant degenerative disc disease; no evidence of spondylolisthesis; no evidence of significant spondylosis Assessment: Chronic low back pain Acute gallstone pancreatitis with subsequent open cholecystectomy Biliary leak with ERCP as well as cholangiogram with sphincterectomy and balloon sweep of the common bile duct stent placement Acute kidney injury requiring hemodialysis Acute hypoxic respiratory failure secondary to pancreatitis and acute renal failure Sepsis with multi-organ failure Leukocytosis Sinus tachycardia History of alcoholism History of hypertension Bilateral hearing loss Plan: 1. After reviewing of imaging, physical examination the patient, and further discussion with the patient, we will currently planned to continue conservative treatment at this time. Review of imaging does not show evidence of significant degenerative changes on lumbar x-rays. He does not have evidence of a compression fracture deformity. His ongoing low back pain has been chronic in nature without recent change. He has been being treated for multiple medical conditions and treatment here in the hospital. At this time he will plan to continue following with these other medical providers for his other medical diagnoses. We will plan has been followed in the outpatient setting for further evaluation. We discussed the plan have him work to formal physical therapy at that time. If he were to fail conservative treatment options, we may plan for further imaging in the outpatient setting. From an orthopedic spine standpoint, patient is clear for discharge. Patient may plan a follow-up with Abhilash Henry PA-C or Dr. Aravind Petersen at [facility] in approximately 3-4 weeks for further evaluation. He may participate in activities to tolerance in regards to his lumbar spine. 2. Patient will continue be seeing him other medical providers including medicine, cardiology, Gen. surgery, pulmonology, infectious disease and nephrology
--- NOTE | 2019-08-09 16:52 | PN ---
PROGRESS NOTE DATE OF SERVICE: 08/09/2019 REASON FOR FOLLOWUP: Leukocytosis and concern for pancreatic pseudocyst and cholangitis. INTERVAL HISTORY: The patient is currently afebrile, has been breathing comfortably. The patient did mention he did not want his breakfast and subsequently threw it up. Denies having any abdominal pain at this point. No chest pain, shortness of breath or cough. PHYSICAL EXAMINATION: Blood pressure 139/70 with a pulse of 102, temperature 98.1. He is 97% on room air. General description is a middle-aged male lying in bed in no distress. RESPIRATORY SYSTEM: Unlabored breathing. Clear to auscultation anteriorly. HEART: S1, S2. Regular rate and rhythm. ABDOMEN: Soft. No tenderness. LABS: Hemoglobin 8.3, white count 12.7. Creatinine 3.55. DIAGNOSTIC IMPRESSION AND PLAN: Patient with leukocytosis, likely multifactorial in this patient who did have gallstone pancreatitis/pancreatic pseudocyst and biliary leak, status post ERCP and stent placement, concern for possible cholangitis. Patient is covered with cefepime. White count is showing a downward trend. Cultures have been negative. Monitor clinical course closely. MMODL / IJN: [id number] /
[2019-08-09 17:30] LABS: Hepatitis B Surface AB- Quant 3.5 mIU/mL; Hepatitis B Surface Antibody Non-Reactive (Non-Reactive); Hepatitis B Surface Antigen Non-Reactive (Non-Reactive)
[2019-08-09 20:09] LABS: Glucose,Whole Blood 139 mg/dL (75-99)
[2019-08-09] MEDS: GABAPENTIN 100 MG CAP PO SCH (21:06)
--- NOTE | 2019-08-10 00:01 | P.PN ---
Progress Note - Text Progress Note Date: 08/09/19 nterval history: This is a pleasant 54-year-old Patient of Dr. Malloy. Patient for about 2 ye ars has had episodes of upper abdominal epigastric pain lasted for about half an hour. Started off about 2 years ago when he states the frequency is increased. More so frequently in the last 2 weeks. Day before presentation-morning patient became rather severe. Epigastric. With nausea vomiting. Had fever and chills. Also been getting heartburn. Patient drinks about 12 beers over the weekend. Otherwise in good health. Admitted with-acute cholecystitis with choledocholithiasis, acute gallstone pancreatitis. patient clinically deteriorated and was transferred to the ICU on July 13. Patient intubated.went into renal failure. Started hemodialysis. Patient underwent open cholecystectomy with gallstone removal on 07/17/2019. extubated July 21. Patient had a biliary leak had a biliary stent placed on August 04. On August 06 had a computed tomography scan showing large pseudocyst. Today-he will dialysis today. Doing much better in terms of activity. Did walk out of the hallway. Appetite improving. Feels better. at the bedside. Review of systems: Was done for constitutional, cardiovascular, GI, pulmonary. relevant finding as above Active Medications Acetaminophen (Tylenol Tab) 650 mg PO Q4HR PRN PRN Reason: Fever and/or Mild Pain Last Admin: 08/01/19 21:49 Dose: 650 mg Documented by: Hydrocodone Bitart/Acetaminophen ([place] 10) 1 each PO Q6H PRN PRN Reason: Moderate Pain Last Admin: 08/09/19 17:42 Dose: 1 each Documented by: Albuterol/Ipratropium (Duoneb 0.5 Mg-3 Mg/3 Ml Soln) 3 ml INHALATION RT-QID [facility] Last Admin: 08/09/19 19:33 Dose: 3 ml Documented by: Albuterol/Ipratropium (Duoneb 0.5 Mg-3 Mg/3 Ml Soln) 3 ml INHALATION RT-Q2H PRN PRN Reason: Shortness Of Breath Or Wheezing Calcium Acetate (Phoslo) 1,334 mg PO TID-W/MEALS [facility] Last Admin: 08/09/19 16:05 Dose: 1,334 mg Documented by: Calcium Carbonate/Glycine (Tums) 500 mg PO TID PRN PRN Reason: Heartburn Last Admin: 08/06/19 21:39 Dose: 500 mg Documented by: Darbepoetin Mj (Aranesp) 12.5 mcg SQ Q7D [facility] Last Admin: 08/05/19 12:49 Dose: 12.5 mcg Documented by: Fluconazole (Diflucan) 100 mg PO DAILY [facility] Last Admin: 08/09/19 08:14 Dose: 100 mg Documented by: Gabapentin (Neurontin) 100 mg PO HS [facility] Last Admin: 08/09/19 21:06 Dose: 100 mg Documented by: Heparin Sodium (Porcine) (Heparin) 5,000 unit SQ Q8HR [facility] Last Admin: 08/09/19 23:17 Dose: 5,000 unit Documented by: Cefepime HCl 1 gm/ Sodium (Chloride) 50 mls @ 100 mls/hr IVPB DAILY [facility] Last Admin: 08/09/19 08:14 Dose: 100 mls/hr Documented by: Insulin Aspart (Novolog) 0 unit SQ ACHS [facility]; Protocol Last Admin: 08/09/19 21:06 Dose: 1 unit Documented by: Lidocaine (Lidoderm) 1 patch TOPICAL DAILY [facility] Last Admin: 08/09/19 08:14 Dose: 1 patch Documented by: Magnesium Hydroxide (Milk Of Magnesia) 2,400 mg PO DAILY [facility] Last Admin: 08/09/19 08:10 Dose: Not Given Documented by: Melatonin (Melatonin) 3 mg PO HS PRN PRN Reason: Insomnia Last Admin: 08/04/19 20:42 Dose: 3 mg Documented by: Metoclopramide HCl (Reglan) 5 mg IVP Q6HR PRN PRN Reason: Nausea And Vomiting Last Admin: 08/06/19 21:36 Dose: 5 mg Documented by: Metoprolol Tartrate (Lopressor) 50 mg PO BID [facility] Last Admin: 08/09/19 21:06 Dose: 50 mg Documented by: Midodrine (Proamatine) 10 mg PO DAILY PRN PRN Reason: HYPOTENSION WITH DIALYSIS Last Admin: 07/25/19 12:23 Dose: 10 mg Documented by: Naloxone HCl (Narcan) 0.2 mg IV Q2M PRN PRN Reason: Opioid Reversal Ondansetron HCl (Zofran) 4 mg IVP Q8HR PRN PRN Reason: Nausea And Vomiting Last Admin: 08/06/19 11:03 Dose: 4 mg Documented by: Pantoprazole Sodium (Protonix) 40 mg PO AC-BID [facility] Last Admin: 08/09/19 16:05 Dose: 40 mg Documented by: Sevelamer Carbonate (Renvela) 1,600 mg PO TID-W/MEALS [facility] Last Admin: 08/09/19 16:06 Dose: 1,600 mg Documented by: Physical examination: VITAL SIGNS: 98.9, 106, 18, 11 3/67, 97% room air GENERAL: Propped up in bed, awake EYES: Pupils equal. Conjunctiva normal. HEENT: External appearance of nose and ears normal, oral cavity grossly normal. NECK: JVD unable to assess, masses not palpable. HEART: First and second heart sounds are normal; some edema. LUNGS: Respiratory rate increased, decreased breath sounds. ABDOMEN: Soft, dressing over the incision, MARICHUY drain is present.- PSYCH: AAO 3, mood and affect normal NEUROLOGICAL: Cranial nerves grossly intact, moving all 4 limbs White count 12.7 hemoglobin 8.3 potassium 3.4 bun 59 creatinine 3.55 Previous testing White count 13 hemoglobin 18.4 pressures 59 progression 4.3 crit 1.16 Total bilirubin 2.9 AST 440 ALT 574 Amylase 2794, lipase greater than 20,000 Computed tomography scan-moderate peripancreatic fat stranding, gallstones and a distended gallbladder with gallbladder wall thickening. Abdominal ultrasound-gallbladder thickening with intermittent small stones. Pericholecystic fluid EKG tracing-personally reviewed by me shows normal sinus rhythm nonspecific T- wave changes blood culture and sputum culture both negative Computed tomography scan abdomen-on August 06-large pseudocyst Assessment: -Acute cholecystitis secondary to choledocholithiasis, with possible ascending cholangitis,causing sepsis, status post open cholecystectomy on July 17. -Acute postprocedure blood loss anemia as expected from surgery, -Acute gallstone pancreatitis, , improved -Acute renal failure, likely ATN from hepatorenal, , started on renal replacement therapy on July 15, slow to respond -Essential hypertension -Septic and hypovolemic shock, status post pressor support, -Obesity BMI 31 -Hyperkalemia in a patient does take LORENA inhibitor's the setting of renal failure -Severe metabolic acidosis with lactic acidosis, improved -Acute hypoxic severe respiratory failure secondary to noncardiogenic pulmonary edema status post ventilator support, extubated on July 21 -Symptomatic anemia from blood loss from the MARICHUY drain -Hypoalbuminemia, acute phase reactant -Large pseudocyst Plan: looking better. Did walk with a walker to the hallway. 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 Discussed with the patient and . If continues to improve significantly at home maybe a possibility. We'll watch for another 24 hours.
[2019-08-10] MEDS: ONDANSETRON 4 MG/2 ML VIAL IVP PRN (03:43)
[2019-08-10] MEDS: ACETAMINOPHEN TAB 325 MG TAB PO PRN (03:43)
[2019-08-10 06:08] LABS: Glucose,Whole Blood 136 mg/dL (75-99)
[2019-08-10 06:31] LABS: Basophils # (A) 0.2 k/uL (0-0.2); Basophils % (A) 1 %; Eosinophils # (A) 0.3 k/uL (0-0.7); Eosinophils % (A) 2 %; HCT 29.2 % (39.0-53.0); HGB 9.5 gm/dL (13.0-17.5); Hypochromasia Moderate; Lymphocytes # (A) 1.5 k/uL (1.0-4.8); Lymphocytes % (A) 9 %; MCH 30.4 pg (25.0-35.0); MCHC 32.4 g/dL (31.0-37.0); MCV 93.7 fL (80.0-100.0); Mean Platelet Volume 7.3; Monocytes # (A) 1.1 k/uL (0-1.0); Monocytes % (A) 6 %; Neutrophils % (A) 81 %; Platelet Count 331 k/uL (150-450); Poikilocytosis Slight; RBC 3.12 m/uL (4.30-5.90); RDW 13.2 % (11.5-15.5); WBC 17.3 k/uL (3.8-10.6)
[2019-08-10] MEDS: INSULIN ASPART (NovoLOG) 100 UNIT/ML VIAL SQ SCH ×4 (06:41→21:37)
[2019-08-10] MEDS: PANTOPRAZOLE 40 MG TABLET PO SCH ×2 (06:41→17:41)
[2019-08-10] MEDS: CALCIUM ACETATE 667 MG TAB PO SCH ×3 (06:41→17:41)
[2019-08-10] MEDS: SEVELAMER 800 MG TAB PO SCH ×3 (06:41→17:40)
[2019-08-10] MEDS: IPRATROPIUM-ALBUTEROL 3 ML NEB INHALATION SCH ×4 (07:20→20:17)
--- NOTE | 2019-08-10 09:06 | P.PN ---
Subjective Patient is seen in follow-up for acute kidney injury, currently hemodialysis dependent. Urine output not documented accurately. He does not have a Chaves catheter at this time. Edema improved. Currently awake and alert. Denies chest pain or shortness of breath. He's been tolerating oral intake. No vomiting since yesterday morning. Vital signs are stable. General: The patient appeared well nourished and normally developed. Intubated. HEENT: Head exam is unremarkable. Neck is without jugular venous distension. LUNGS: Lungs are clear to auscultation and percussion. Breath sounds decreased. HEART: Rate and Rhythm are regular. First and second heart sounds normal. No murmurs, rubs or gallops. ABDOMEN: Bowel sounds decreased. EXTREMITITES: Trace edema. Objective - Vital Signs Vital signs: Vital Signs Temp 100.2 F H 08/10/19 04:00 Pulse 77 08/10/19 07:32 Resp 16 08/10/19 07:32 BP 128/74 08/10/19 04:00 Pulse Ox 95 08/10/19 07:20 Intake & Output 08/09/19 08/10/19 08/10/19 18:59 06:59 18:59 Intake Total 550 120 Output Total 3000 15 Balance -2450 -15 120 Weight 103.5 kg Intake: Oral 550 120 Output: Drainage 15 Right Abdomen 15 Hemodialysis 3000 Other: Voiding Method Toilet Toilet Urinal Urinal # Voids 1 ABP, PAP, CO, CI - Last Documented Arterial Blood Pressure 96/53 - Labs CBC & Chem 7: 08/10/19 05:51 08/09/19 05:40 Labs: Abnormal Lab Results - Last 24 Hours (Table) 08/09/19 08/10/19 08/10/19 Range/Units 20:07 05:51 06:07 WBC 17.3 H (3.8-10.6) k/uL RBC 3.12 L (4.30-5.90) m/uL Hgb 9.5 L (13.0-17.5) gm/dL Hct 29.2 L (39.0-53.0) % Neutrophils # 14.0 H (1.3-7.7) k/uL Monocytes # 1.1 H (0-1.0) k/uL POC Glucose (mg/dL) 139 H 136 H (75-99) mg/dL Microbiology - Last 24 Hours (Table) 08/04/19 07:21 Blood Culture - Preliminary Blood No Growth after 120 hours Assessment and Plan Plan: Assessment: 1. Acute kidney injury secondary to ATN secondary to septic shock, currently hemodialysis dependent. Started on hemodialysis July 15. Baseline creatinine is near 1 and peaked at greater than 8 this admission. Nonoliguric. 2. Volume overload. Partially due to third spacing due to hypoalbuminemia. Better. 3. Severe acute pancreatitis. ERCP was attempted earlier this admission. Status post open cholecystectomy on July 17. 4. Hyperphosphatemia secondary to acute kidney injury maintained on PhosLo and Renvela. Better. 5. Ileus, s/p TPN. 6. Metabolic acidosis secondary to acute kidney injury. Improved with dialysis. 7. Hyperkalemia secondary to acute kidney injury and metabolic acidosis. Resolved. 8. Hypervolemic hyponatremia. Stable. 9. Status post permacath placement July 28. 10. Anemia of chronic kidney disease. Maintained on Aranesp. Plan: Hemodialysis on Wednesday schedule. Avoid nephrotoxins. Continue to monitor renal function and urine output. Will monitor for renal recovery outpatient.
[2019-08-10] MEDS ORDERED: VANCOMYCIN IV PER PHARMACY 1 EACH MISC MISCELLANE PRN (09:32)
[2019-08-10] MEDS: MAGNESIUM HYDROXIDE 2,400 MG/10 ML CUP PO SCH (09:34)
[2019-08-10] MEDS: FLUCONAZOLE 100 MG TAB PO SCH (09:34)
[2019-08-10] MEDS: METOPROLOL TARTRATE 50 MG TAB PO SCH ×2 (09:34→20:22)
--- NOTE | 2019-08-10 09:34 | CDI ---
Documentation Clarification Form Date: 08/10/2019 09:20:36 AM From: Ange GainesRodríguezSOPHY, CCDS Admit Date: 07/11/2019 07:50:00 AM Patient Name: Wm Antonio Visit Number: [id number] Discharge Date: 08/11/2019 ATTENTION: The Clinical Documentation Specialists (CDI) and [facility] Coding Staff appreciate your assistance in clarifying documentation. Please respond to the clarification below the line at the bottom and electronically sign. The CDI & [facility] Coding staff will review the response and follow-up if needed. Please note: Queries are made part of the Legal Health Record. If you have any questions, please contact the author of this message via ITS. Dr. Berto Quintero: Per the 08/04 procedure note (ERCP): Biliary/bile leak status post cholecystectomy. Successful sphincterotomy with cholangiogram with findings consistent with bile leak, sphincterotomy, balloon sweep and placement of a 7- [place] by 10 cm CBD stent. Patients Admitting Diagnosis: Patient underwent open cholecystectomy with gallstone removal on 07/17/2019. Assessment: Acute cholecystitis secondary to choledocholithiasis, with possible ascending cholangitis, causing sepsis, status post open cholecystectomy on July 17. History/Risk Factors: Hypertension, Obesity (BMI 30.9), Smoker. Clinical Indicators: Patient's postoperative stay has been complicated by ABLA, Acute renal failure w/ATN, Sepsis & hypovolemic shock, Metabolic & Lactic acidosis & acute severe hypoxic respiratory failure. Treatment: On admission: IV fluid boluses, IV Dilaudid, IV Zofran, IV Rocephin, IV Toradol, & IV Flagyl. Currently: IV Reglan, IV Protonix, IV Cefepime, IV Vancomycin, IV Dilaudid. Full liquid diet. In order to accurately reflect this patients severity of illness, please clarify if the post-operative diagnosis: biliary leak status post cholecystectomy is: An expected post-procedural or post-surgical condition An unexpected post-procedural or post-surgical condition related to surgical care (a complication of care) An unexpected post-procedural or post-surgical condition, related to the patients underlying medical comorbidities Other, please specify ____ Unable to determine (Last Revision: October 2018) UNABLE TO DETERMIN MTDD
[2019-08-10] MEDS: HEPARIN SODIUM,PORCINE 5,000 UNIT/ML 1 ML VIAL SQ SCH ×3 (09:35→23:30)
[2019-08-10] MEDS: CEFEPIME 1 GM in SODIUM CHLORIDE 0.9% 50 ML IVPB SCH (09:35)
[2019-08-10] MEDS: FUROSEMIDE 80 MG TAB PO SCH (09:41)
[2019-08-10] MEDS ORDERED: VANCOMYCIN 1,750 MG in SODIUM CHLORIDE 0.9% 500 ML 500 ML IVPB SCH (10:00)
[2019-08-10 11:44] LABS: Glucose,Whole Blood 147 mg/dL (75-99)
[2019-08-10] MEDS: LIDOCAINE 5% PATCH TOPICAL SCH (12:02)
--- NOTE | 2019-08-10 13:11 | P.PN ---
Subjective Progress Note Date: 08/10/19 CHIEF COMPLAINT: Abdominal pain HISTORY OF PRESENT ILLNESS: Patient is status post open cholecystectomy. Also s/p ERCP with stent placement for bile duct leak. Patient examined at the bedside. He denies abdominal pain. Patient tolerating full liquid diet. Denies nausea or vomiting. Passing flatus. PHYSICAL EXAM: VITAL SIGNS: Reviewed GENERAL: Well-developed in no acute distress. HEENT: No sclera icterus. Extraocular movements grossly intact. Moist buccal mucosa. Head is atraumatic, normocephalic. Hears conversational speech. No nasal drainage. CHEST: Non-labored respirations and equal bilateral excursions. ABDOMEN: Soft. Nondistended. Brad to abdominal incision. MARICHUY with bile drainage. PSYCH: Appropriate affect. Alert and oriented. SKIN: Well perfused. Good skin turgor. ASSESSMENT: 1. Abdominal pain 2. Cholelithiasis, s/p open cholecystectomy 3. Pancreatitis 4. Hyperbilirubinemia 5. Transaminitis 6. Acute renal failure, on hemodialysis 7. Bile leak 8. Large fluid collection at pancreas PLAN: Patient with large pseudocyst that is compressing the stomach. Continue full liquid diet. Do not advance due to compression of stomach from pseudocyst Continue MARICHUY drain Remove abdominal incision brad Nurse practitioner note has been reviewed by physician. Signing provider agrees with the documented findings, assessment, and plan of care. Objective - Vital Signs Vital signs: Vital Signs Temp 98.3 F 08/10/19 12:00 Pulse 104 H 08/10/19 12:00 Resp 18 08/10/19 12:00 BP 128/80 08/10/19 12:00 Pulse Ox 96 08/10/19 12:00 Intake & Output 08/09/19 08/10/19 08/10/19 18:59 06:59 18:59 Intake Total 550 480 Output Total 3000 15 Balance -2450 -15 480 Weight 103.5 kg Intake: Oral 550 480 Output: Drainage 15 Right Abdomen 15 Hemodialysis 3000 Other: Voiding Method Toilet Toilet Toilet Urinal Urinal Urinal # Voids 1 ABP, PAP, CO, CI - Last Documented Arterial Blood Pressure 96/53 - Labs CBC & Chem 7: 08/10/19 05:51 08/09/19 05:40 Labs: Abnormal Lab Results - Last 24 Hours (Table) 01/03/2108/10/19 08/10/19 Range/Units 20:07 05:51 06:07 WBC 17.3 H (3.8-10.6) k/uL RBC 3.12 L (4.30-5.90) m/uL Hgb 9.5 L (13.0-17.5) gm/dL Hct 29.2 L (39.0-53.0) % Neutrophils # 14.0 H (1.3-7.7) k/uL Monocytes # 1.1 H (0-1.0) k/uL POC Glucose (mg/dL) 139 H 136 H (75-99) mg/dL Plasma Lactic Acid Rusty (0.7-2.0) mmol/L 08/10/19 08/10/19 Range/Units 10:28 11:43 WBC (3.8-10.6) k/uL RBC (4.30-5.90) m/uL Hgb (13.0-17.5) gm/dL Hct (39.0-53.0) % Neutrophils # (1.3-7.7) k/uL Monocytes # (0-1.0) k/uL POC Glucose (mg/dL) 147 H (75-99) mg/dL Plasma Lactic Acid Rusty 2.2 H* (0.7-2.0) mmol/L Microbiology - Last 24 Hours (Table) 08/04/19 07:21 Blood Culture - Final Blood No Growth after 144 hours
--- NOTE | 2019-08-10 14:08 | P.PN ---
Progress Note - Text Progress Note Date: 08/10/19 interval history: This is a pleasant 54-year-old Patient of Dr. Malloy. Patient for about 2 y ears has had episodes of upper abdominal epigastric pain lasted for about half an hour. Started off about 2 years ago when he states the frequency is increased. More so frequently in the last 2 weeks. Day before presentation- morning patient became rather severe. Epigastric. With nausea vomiting. Had fever and chills. Also been getting heartburn. Patient drinks about 12 beers over the weekend. Otherwise in good health. Admitted with-acute cholecystitis with choledocholithiasis, acute gallstone pancreatitis. patient clinically deteriorated and was transferred to the ICU on July 13. Patient intubated.went into renal failure. Started hemodialysis. Patient underwent open cholecystectomy with gallstone removal on 07/17/2019. extubated July 21. Patient had a biliary leak had a biliary stent placed on August 04. On August 06 had a computed tomography scan showing large pseudocyst. Today-no new issues. Did walk into the hallway.. Keeping his diet down. Does get up upper abdominal discomfort. Review of systems: Was done for constitutional, cardiovascular, GI, pulmonary. relevant finding as above Active Medications Acetaminophen (Tylenol Tab) 650 mg PO Q4HR PRN PRN Reason: Fever and/or Mild Pain Last Admin: 08/10/19 03:43 Dose: 650 mg Documented by: Hydrocodone Bitart/Acetaminophen ([place] 10) 1 each PO Q6H PRN PRN Reason: Moderate Pain Last Admin: 08/09/19 17:42 Dose: 1 each Documented by: Albuterol/Ipratropium (Duoneb 0.5 Mg-3 Mg/3 Ml Soln) 3 ml INHALATION RT-QID [facility] Last Admin: 08/10/19 11:00 Dose: 3 ml Documented by: Albuterol/Ipratropium (Duoneb 0.5 Mg-3 Mg/3 Ml Soln) 3 ml INHALATION RT-Q2H PRN PRN Reason: Shortness Of Breath Or Wheezing Calcium Acetate (Phoslo) 1,334 mg PO TID-W/MEALS [facility] Last Admin: 08/10/19 12:02 Dose: 1,334 mg Documented by: Calcium Carbonate/Glycine (Tums) 500 mg PO TID PRN PRN Reason: Heartburn Last Admin: 08/06/19 21:39 Dose: 500 mg Documented by: Darbepoetin Mj (Aranesp) 12.5 mcg SQ Q7D [facility] Last Admin: 08/05/19 12:49 Dose: 12.5 mcg Documented by: Fluconazole (Diflucan) 100 mg PO DAILY [facility] Last Admin: 08/10/19 09:34 Dose: 100 mg Documented by: Furosemide (Lasix) 80 mg PO DAILY [facility] Last Admin: 08/10/19 09:41 Dose: 80 mg Documented by: Gabapentin (Neurontin) 100 mg PO HS [facility] Last Admin: 08/09/19 21:06 Dose: 100 mg Documented by: Heparin Sodium (Porcine) (Heparin) 5,000 unit SQ Q8HR [facility] Last Admin: 08/10/19 09:35 Dose: 5,000 unit Documented by: Cefepime HCl 1 gm/ Sodium (Chloride) 50 mls @ 100 mls/hr IVPB DAILY [facility] Last Admin: 08/10/19 09:35 Dose: 100 mls/hr Documented by: Vancomycin HCl 1,750 mg/ (Sodium Chloride) 500 mls @ 167 mls/hr IVPB Q36H [facility] Last Admin: 08/10/19 12:02 Dose: 167 mls/hr Documented by: Insulin Aspart (Novolog) 0 unit SQ ACHS [facility]; Protocol Last Admin: 08/10/19 12:03 Dose: 1 unit Documented by: Iopamidol (Isovue-300 (For Oral Use)) 30 ml PO Q60M PRN PRN Reason: CT Scan Stop: 08/11/19 14:04 Lidocaine (Lidoderm) 1 patch TOPICAL DAILY [facility] Last Admin: 08/10/19 12:02 Dose: 1 patch Documented by: Magnesium Hydroxide (Milk Of Magnesia) 2,400 mg PO DAILY [facility] Last Admin: 08/10/19 09:34 Dose: 2,400 mg Documented by: Melatonin (Melatonin) 3 mg PO HS PRN PRN Reason: Insomnia Last Admin: 08/04/19 20:42 Dose: 3 mg Documented by: Metoclopramide HCl (Reglan) 5 mg IVP Q6HR PRN PRN Reason: Nausea And Vomiting Last Admin: 08/06/19 21:36 Dose: 5 mg Documented by: Metoprolol Tartrate (Lopressor) 50 mg PO BID [facility] Last Admin: 08/10/19 09:34 Dose: 50 mg Documented by: Midodrine (Proamatine) 10 mg PO DAILY PRN PRN Reason: HYPOTENSION WITH DIALYSIS Last Admin: 07/25/19 12:23 Dose: 10 mg Documented by: Naloxone HCl (Narcan) 0.2 mg IV Q2M PRN PRN Reason: Opioid Reversal Ondansetron HCl (Zofran) 4 mg IVP Q8HR PRN PRN Reason: Nausea And Vomiting Last Admin: 08/10/19 03:43 Dose: 4 mg Documented by: Pantoprazole Sodium (Protonix) 40 mg PO AC-BID [facility] Last Admin: 08/10/19 06:41 Dose: 40 mg Documented by: Sevelamer Carbonate (Renvela) 1,600 mg PO TID-W/MEALS [facility] Last Admin: 08/10/19 12:02 Dose: 1,600 mg Documented by: Physical examination: VITAL SIGNS: 98.3, 104, 18, 128/80, 96% on room air GENERAL: Propped up in bed, comfortable EYES: Pupils equal. Conjunctiva normal. HEENT: External appearance of nose and ears normal, oral cavity grossly normal. NECK: JVD unable to assess, masses not palpable. HEART: First and second heart sounds are normal; some edema. LUNGS: Respiratory rate increased, decreased breath sounds. ABDOMEN: Soft, mild upper abdominal tenderness, MARICHUY drain is present.- PSYCH: AAO 3, mood and affect normal NEUROLOGICAL: Cranial nerves grossly intact, moving all 4 limbs Investigations: White count 7.3 hemoglobin 9.5 lactic acid 2.2 Previous testing White count 13 hemoglobin 18.4 pressures 59 progression 4.3 crit 1.16 Total bilirubin 2.9 AST 440 ALT 574 Amylase 2794, lipase greater than 20,000 Computed tomography scan-moderate peripancreatic fat stranding, gallstones and a distended gallbladder with gallbladder wall thickening. Abdominal ultrasound-gallbladder thickening with intermittent small stones. Pericholecystic fluid EKG tracing-personally reviewed by me shows normal sinus rhythm nonspecific T- wave changes blood culture and sputum culture both negative Computed tomography scan abdomen-on August 06-large pseudocyst Assessment: -Patient has a increasing white count. Upper abdominal discomfort. Which is not new. Keeping his diet down lactic acid in the setting of renal failure. Not to relevant. Patient is clinically looks improved. -Acute cholecystitis secondary to choledocholithiasis, with possible ascending cholangitis,causing sepsis, status post open cholecystectomy on July 17. -Acute postprocedure blood loss anemia as expected from surgery, -Acute gallstone pancreatitis, , improved -Acute renal failure, likely ATN from hepatorenal, , started on renal replacement therapy on July 15, slow to respond -Essential hypertension -Septic and hypovolemic shock, status post pressor support, -Obesity BMI 31 -Hyperkalemia in a patient does take LORENA inhibitor's the setting of renal failure -Severe metabolic acidosis with lactic acidosis, improved -Acute hypoxic severe respiratory failure secondary to noncardiogenic pulmonary edema status post ventilator support, extubated on July 21 -Symptomatic anemia from blood loss from the MARICHUY drain -Hypoalbuminemia, acute phase reactant -Large pseudocyst Plan: We'll get a computed tomography scan of the abdomen and pelvis with and without contrast. Discussed with the patient and . Patient is already on cefepime and vancomycin. We'll discuss with ID.
[2019-08-10] MEDS ORDERED: IOPAMIDOL CONTRAST (ORAL USE) VIAL PO PRN (14:36)
[2019-08-10] MEDS: IOPAMIDOL CONTRAST (ORAL USE) VIAL PO PRN ×2 (15:05→16:04)
--- NOTE | 2019-08-10 15:05 | PN ---
PROGRESS NOTE DATE OF SERVICE: 08/10/2019 REASON FOR FOLLOWUP: Possible cholangitis in this patient who did have biliary and pancreatic pseudocyst. INTERVAL HISTORY: The patient did spike a fever around 4 this morning of 100.2. He was also noted to have worsening of his white count with up to 17,000 today. Patient denies having any chest pain. No shortness of breath or cough. No abdominal pain. No worsening, no further nausea, no vomiting and no diarrhea. He still makes some urine, but no urinary symptom at this point. PHYSICAL EXAMINATION: His blood pressure is 120/80 with a pulse of 104, temperature 98.3, he is 96% on room air. General description is a middle-aged male, lying in bed in no distress. RESPIRATORY SYSTEM: Unlabored breathing. Decreased breath sounds at the bases, no wheeze. HEART: S1, S2. Regular rate and rhythm. ABDOMEN: Soft, no tenderness, no rigidity. EXTREMITIES: Some trace edema of the feet. LABS: Hemoglobin is 9.5, white count 17.3. DIAGNOSTIC IMPRESSION AND PLAN: Patient with acute gallstone pancreatitis in a patient who is status post open cholecystectomy with component of pancreatic pseudocyst, biliary leak, status post ERCP results of possible cholangitis. The cultures were done on 08/04 has been negative and the patient was clinically responding to the cefepime with the patient was on and plan was to transition to oral antibiotic on discharge. However, now with this new fever that is concerning. We will obtain blood cultures from the PICC line and peripherally. Vancomycin will be added empirically and will monitor his clinical course closely. Continue supportive care. MMODL / IJN: [id number] /
[2019-08-10 16:40] LABS: Glucose,Whole Blood 138 mg/dL (75-99)
[2019-08-10] MEDS: GABAPENTIN 100 MG CAP PO SCH (20:22)
--- NOTE | 2019-08-10 20:29 | CT ---
EXAMINATION TYPE: CT abdomen pelvis w con DATE OF EXAM: 08/10/2019 COMPARISON: 08/06/2019 HISTORY: Follow up scan; worsening labs CT DLP: 1972.7 mGycm Automated exposure control for dose reduction was used. TECHNIQUE: Helical acquisition of images was performed from the lung bases through the pelvis. CONTRAST: Performed with Oral Contrast and with IV Contrast, patient injected with 100 mL of Isovue 3 00. FINDINGS: LUNG BASES: No acute findings. LIVER/GB: No significant abnormality is appreciated. SUPPORT LINES AND CATHETERS: Extrahepatic biliary stent redemonstrated. Right upper quadrant catheter redemonstrated; unchanged. PANCREAS/ANTERIOR PARARENAL SPACE: The massive anterior pararenal space fluid collection has increase d in size, currently measuring 24 cm x 15 x 13 cm. It previously measured 20 x 14 x 10 cm. SPLEEN: No significant abnormality is seen. ADRENALS: No significant abnormality is seen. KIDNEYS: No significant abnormality is seen. PERITONEAL CAVITY: No pneumoperitoneum and no peritoneal fluid. RETROPERITONEAL ADENOPATHY: None visualized REPRODUCTIVE ORGANS: No significant abnormality is seen URINARY BLADDER: No significant abnormality is seen. PELVIC ADENOPATHY: None visualized. OSSEOUS STRUCTURES: No significant abnormality is seen. BOWEL: No acute findings. OTHER: No acute vascular findings. IMPRESSION: INCREASING ANTERIOR PARARENAL SPACE AND CREATE FLUID COLLECTION.
[2019-08-10 20:32] LABS: Glucose,Whole Blood 107 mg/dL (75-99)
[2019-08-11 06:03] LABS: Glucose,Whole Blood 120 mg/dL (75-99)
[2019-08-11] MEDS: CALCIUM ACETATE 667 MG TAB PO SCH ×3 (06:30→17:11)
[2019-08-11] MEDS: PANTOPRAZOLE 40 MG TABLET PO SCH ×2 (06:30→17:11)
[2019-08-11] MEDS: SEVELAMER 800 MG TAB PO SCH ×3 (06:31→17:11)
[2019-08-11] MEDS: INSULIN ASPART (NovoLOG) 100 UNIT/ML VIAL SQ SCH ×3 (06:32→17:12)
[2019-08-11 07:07] LABS: HCT 25.5 % (39.0-53.0); HGB 8.1 gm/dL (13.0-17.5); Hypochromasia Slight; MCH 29.3 pg (25.0-35.0); MCHC 31.5 g/dL (31.0-37.0); Mean Platelet Volume 7.4; Platelet Count 240 k/uL (150-450); RBC 2.75 m/uL (4.30-5.90); RDW 13.7 % (11.5-15.5); WBC 13.7 k/uL (3.8-10.6)
[2019-08-11] MEDS: IPRATROPIUM-ALBUTEROL 3 ML NEB INHALATION SCH ×4 (08:29→15:52)
[2019-08-11 08:40] VITALS: RESP 18
[2019-08-11] MEDS: LIDOCAINE 5% PATCH TOPICAL SCH (08:40)
[2019-08-11] MEDS: MAGNESIUM HYDROXIDE 2,400 MG/10 ML CUP PO SCH (08:40)
[2019-08-11] MEDS: HEPARIN SODIUM,PORCINE 5,000 UNIT/ML 1 ML VIAL SQ SCH ×2 (08:40→15:24)
[2019-08-11] MEDS: FUROSEMIDE 80 MG TAB PO SCH (08:40)
[2019-08-11] MEDS: HYDROcodone/APAP 10-325MG 1 EACH TAB PO PRN ×2 (09:45→17:11)
--- NOTE | 2019-08-11 10:38 | P.PN ---
Subjective Patient is seen in follow-up for acute kidney injury, currently hemodialysis dependent. Urine output not documented accurately. He does not have a Chaves catheter at this time. Edema improved. Currently awake and alert. Denies chest pain or shortness of breath. He's been tolerating oral intake. No vomiting. Vital signs are stable. General: The patient appeared well nourished and normally developed. Intubated. HEENT: Head exam is unremarkable. Neck is without jugular venous distension. LUNGS: Lungs are clear to auscultation and percussion. Breath sounds decreased. HEART: Rate and Rhythm are regular. First and second heart sounds normal. No murmurs, rubs or gallops. ABDOMEN: Bowel sounds decreased. EXTREMITITES: Trace edema. Objective - Vital Signs Vital signs: Vital Signs Temp 98.6 F 08/11/19 08:00 Pulse 108 H 08/11/19 08:48 Resp 18 08/11/19 08:00 BP 125/70 08/11/19 08:00 Pulse Ox 92 L 08/11/19 08:00 Intake & Output 08/10/19 08/11/19 08/11/19 18:59 06:59 18:59 Intake Total 1080 120 Balance 1080 120 Weight 102.5 kg Intake: Intake, IV Titration 600 Amount Cefepime 1 gm In Sodium 100 Chloride 0.9% 50 ml @ 100 mls/hr IVPB DAILY [facility] Rx #:[id number] Vancomycin 1,750 mg In 500 Sodium Chloride 0.9% 500 ml 500 ml @ 167 mls/hr IVPB Q36H [facility] Rx#: [id number] Oral 480 120 Other: Voiding Method Toilet Toilet Toilet Urinal Urinal Urinal # Voids 1 # Bowel Movements 1 1 ABP, PAP, CO, CI - Last Documented Arterial Blood Pressure 96/53 - Labs CBC & Chem 7: 08/11/19 05:57 08/11/19 05:57 Labs: Abnormal Lab Results - Last 24 Hours (Table) 08/10/19 08/10/19 08/10/19 Range/Units 10:28 11:43 14:49 WBC (3.8-10.6) k/uL RBC (4.30-5.90) m/uL Hgb (13.0-17.5) gm/dL Hct (39.0-53.0) % Creatinine (0.66-1.25) mg/dL POC Glucose (mg/dL) 147 H (75-99) mg/dL Plasma Lactic Acid Rusty 2.2 H* 2.4 H* (0.7-2.0) mmol/L 08/10/19 08/10/19 08/11/19 Range/Units 16:38 20:30 05:57 WBC (3.8-10.6) k/uL RBC (4.30-5.90) m/uL Hgb (13.0-17.5) gm/dL Hct (39.0-53.0) % Creatinine 3.71 H (0.66-1.25) mg/dL POC Glucose (mg/dL) 138 H 107 H (75-99) mg/dL Plasma Lactic Acid Rusty (0.7-2.0) mmol/L 08/11/19 08/11/19 Range/Units 05:57 06:02 WBC 13.7 H (3.8-10.6) k/uL RBC 2.75 L (4.30-5.90) m/uL Hgb 8.1 L (13.0-17.5) gm/dL Hct 25.5 L (39.0-53.0) % Creatinine (0.66-1.25) mg/dL POC Glucose (mg/dL) 120 H (75-99) mg/dL Plasma Lactic Acid Rusty (0.7-2.0) mmol/L Microbiology - Last 24 Hours (Table) 08/04/19 07:21 Blood Culture - Final Blood No Growth after 144 hours Assessment and Plan Plan: Assessment: 1. Acute kidney injury secondary to ATN secondary to septic shock, currently hemodialysis dependent. Started on hemodialysis July 15. Baseline creatinine is near 1 and peaked at greater than 8 this admission. Nonoliguric. 2. Volume overload. Partially due to third spacing due to hypoalbuminemia. Better. 3. Severe acute pancreatitis. ERCP was attempted earlier this admission. Status post open cholecystectomy on July 17. 4. Hyperphosphatemia secondary to acute kidney injury maintained on PhosLo and Renvela. Better. 5. Ileus, s/p TPN. 6. Metabolic acidosis secondary to acute kidney injury. Improved with dialys is. 7. Hyperkalemia secondary to acute kidney injury and metabolic acidosis. Resolved. 8. Hypervolemic hyponatremia. Stable. 9. Status post permacath placement July 28. 10. Anemia of chronic kidney disease. Maintained on Aranesp. Plan: Hemodialysis on Wednesday schedule. Avoid nephrotoxins. Continue to monitor renal function and urine output. Will monitor for renal recovery outpatient. No changes from nephrology standpoint. Outpatient dialysis has been set up.
--- NOTE | 2019-08-11 10:44 | P.PN ---
Subjective Progress Note Date: 08/11/19 CHIEF COMPLAINT: Abdominal pain HISTORY OF PRESENT ILLNESS: Patient is status post open cholecystectomy. Also s/p ERCP with stent placement for bile duct leak. Patient examined at the bedside. He denies abdominal pain. Patient tolerating full liquid diet. He repo rts mild upset stomach. Denies nausea or vomiting. WBC 13.7. Hemoglobin 8.1. Afebrile. Patient underwent CT abdomen and pelvis yesterday revealing increasing fluid collection around the pancreas. Measuring 24 cm x 15 cm x 13 cm. Previously measured 20 x 14 x 10 cm. PHYSICAL EXAM: VITAL SIGNS: Reviewed GENERAL: Well-developed in no acute distress. HEENT: No sclera icterus. Extraocular movements grossly intact. Moist buccal mucosa. Head is atraumatic, normocephalic. Hears conversational speech. No nasal drainage. CHEST: Non-labored respirations and equal bilateral excursions. ABDOMEN: Soft. Nondistended. MARICHUY with minimal drainage. PSYCH: Appropriate affect. Alert and oriented. SKIN: Well perfused. Good skin turgor. ASSESSMENT: 1. Abdominal pain 2. Cholelithiasis, s/p open cholecystectomy 3. Pancreatitis 4. Hyperbilirubinemia 5. Transaminitis 6. Acute renal failure, on hemodialysis 7. Bile leak 8. Large fluid collection at pancreas PLAN: Patient with large pseudocyst that is compressing the stomach. Continue full liquid diet. Do not advance due to compression of stomach from pseudocyst. Continue MARICHUY drain Nurse practitioner note has been reviewed by physician. Signing provider agrees with the documented findings, assessment, and plan of care. Objective - Vital Signs Vital signs: Vital Signs Temp 98.6 F 08/11/19 08:00 Pulse 108 H 08/11/19 08:48 Resp 18 08/11/19 08:00 BP 125/70 08/11/19 08:00 Pulse Ox 92 L 08/11/19 08:00 Intake & Output 08/10/19 08/11/19 08/11/19 18:59 06:59 18:59 Intake Total 1080 120 Balance 1080 120 Weight 102.5 kg Intake: Intake, IV Titration 600 Amount Cefepime 1 gm In Sodium 100 Chloride 0.9% 50 ml @ 100 mls/hr IVPB DAILY [facility] Rx #:[id number] Vancomycin 1,750 mg In 500 Sodium Chloride 0.9% 500 ml 500 ml @ 167 mls/hr IVPB Q36H [facility] Rx#: [id number] Oral 480 120 Other: Voiding Method Toilet Toilet Toilet Urinal Urinal Urinal # Voids 1 # Bowel Movements 1 1 ABP, PAP, CO, CI - Last Documented Arterial Blood Pressure 96/53 - Labs CBC & Chem 7: 08/11/19 05:57 08/11/19 05:57 Labs: Abnormal Lab Results - Last 24 Hours (Table) 08/10/19 08/10/19 08/10/19 Range/Units 10:28 11:43 14:49 WBC (3.8-10.6) k/uL RBC (4.30-5.90) m/uL Hgb (13.0-17.5) gm/dL Hct (39.0-53.0) % Creatinine (0.66-1.25) mg/dL POC Glucose (mg/dL) 147 H (75-99) mg/dL Plasma Lactic Acid Rusty 2.2 H* 2.4 H* (0.7-2.0) mmol/L 08/10/19 08/10/19 08/11/19 Range/Units 16:38 20:30 05:57 WBC (3.8-10.6) k/uL RBC (4.30-5.90) m/uL Hgb (13.0-17.5) gm/dL Hct (39.0-53.0) % Creatinine 3.71 H (0.66-1.25) mg/dL POC Glucose (mg/dL) 138 H 107 H (75-99) mg/dL Plasma Lactic Acid Rusty (0.7-2.0) mmol/L 08/11/19 08/11/19 Range/Units 05:57 06:02 WBC 13.7 H (3.8-10.6) k/uL RBC 2.75 L (4.30-5.90) m/uL Hgb 8.1 L (13.0-17.5) gm/dL Hct 25.5 L (39.0-53.0) % Creatinine (0.66-1.25) mg/dL POC Glucose (mg/dL) 120 H (75-99) mg/dL Plasma Lactic Acid Rusty (0.7-2.0) mmol/L Microbiology - Last 24 Hours (Table) 08/04/19 07:21 Blood Culture - Final Blood No Growth after 144 hours
[2019-08-11 11:45] LABS: Glucose,Whole Blood 134 mg/dL (75-99)
[2019-08-11] MEDS: FLUCONAZOLE 100 MG TAB PO SCH (14:01)
[2019-08-11] MEDS: METOPROLOL TARTRATE 50 MG TAB PO SCH (14:01)
[2019-08-11] MEDS: CEFEPIME 1 GM in SODIUM CHLORIDE 0.9% 50 ML IVPB SCH (15:24)
[2019-08-11 15:38] VITALS: BP 121/76; TEMP 98.8
[2019-08-11 16:08] VITALS: PULSE 98
--- NOTE | 2019-08-11 16:32 | PN ---
PROGRESS NOTE DATE OF SERVICE: 08/11/2019 REASON FOR FOLLOWUP: Pancreatitis pseudocyst, question of cholangitis. INTERVAL HISTORY: The patient is currently afebrile and no further has been recorded since yesterday. The patient did mention she was having some abdominal pain last night but since then, has not had any further vomiting. Denies any chest pain or shortness of breath. No cough. Denies any diarrhea. On examination, blood pressure 121/63 with a pulse of 121. Temperature 98.7. He is 99% on room air. General description is a middle-aged male up in the chair in no distress. Respiratory system: Unlabored breathing. Decreased breath sounds in the base, with no wheeze. Heart: S1-S2 regular rate. Abdomen is soft, slightly distended. No guarding or rigidity. Extremities: No edema of the feet. LABS: Hemoglobin is 8.1, white count 13.7. Cultures obtained yesterday so far negative. He did have a CT scan of the abdomen and pelvis completed last night that did show increasing pancreatic pseudocyst. DIAGNOSTIC IMPRESSION AND PLAN: Patient with fever and leukocytosis in this patient who has history of possible pancreatitis, status post open cholecystectomy, now with large pancreatic pseudocyst with progressive worsening in this patient who did have a fever and elevated white count. Concern for possible infected pseudocyst that may need to be drained in order to completely clear up this infection and deep cultures for which the patient may be transferred to tertiary care. This was discussed in detail with the admitting physician as well as the patient. Questions and concerns were answered. MMODL / IJN: [id number] /
[2019-08-11 16:50] LABS: Glucose,Whole Blood 132 mg/dL (75-99)
--- NOTE | 2019-08-11 20:57 | P.DS ---
Providers Date of admission: 07/11/19 07:50 Expected date of discharge: 08/11/19 Attending physician: Fadi Lopez Consults: 07/11/19 07:54 Consult Physician Routine Consulting Provider: Robin Rosales Consult Reason/Comments: poss acute benji, pending US Do you want consulting provider notified?: Yes 07/12/19 22:42 Consult Physician Routine Consulting Provider: Kelsey Membreno Consult Reason/Comments: Elevated Creatinine Do you want consulting provider notified?: Yes Consult Physician Urgent Consulting Provider: Jamel Cates Consult Reason/Comments: ICU Management Do you want consulting provider notified?: Already Contacted 07/23/19 21:21 Consult Physician Routine Consulting Provider: Ольга Hernandez Consult Reason/Comments: low-grade fever Do you want consulting provider notified?: Yes 07/24/19 10:26 Consult Physician Routine Consulting Provider: Ashley Cabral Consult Reason/Comments: encephalopathy Do you want consulting provider notified?: Yes 08/01/19 13:49 Consult Physician Routine Consulting Provider: Omid Petersen Consult Reason/Comments: severe back pain Do you want consulting provider notified?: Yes 08/05/19 13:14 Consult Physician Routine Consulting Provider: Sugey Soto Consult Reason/Comments: elevated heart rate Do you want consulting provider notified?: Yes Primary care physician: Maynor Malloy Hospital Course: Hospital course: This is a pleasant 54-year-old Patient of Dr. Malloy. Patient for about 2 years has had episodes of upper abdominal epigastric pain lasted for about half an hour. Started off about 2 years ago when he states the frequency is increased. More so frequently in the last 2 weeks. Day before presentation- morning patient became rather severe. Epigastric. With nausea vomiting. Had fever and chills. Also been getting heartburn. Patient drinks about 12 beers over the weekend. Otherwise in good health. Admitted with-acute cholecystitis with choledocholithiasis, acute gallstone pancreatitis. patient clinically deteriorated and was transferred to the ICU on July 13. Patient intubated.went into renal failure. Started hemodialysis. Patient underwent open cholecystectomy with gallstone removal on 07/17/2019. extubated July 21. Patient had a biliary leak had a biliary stent placed on August 04. On August 06 had a computed tomography scan showing large pseudocyst. Today-patient had white count going up. Some upper abdominal discomfort. Repeat computed tomography scan of the abdomen was done yesterday. Showed enlarging pseudocyst. Gone from 20 cm the [address] Shon Keen. Did get the opinion from a higher level of central care at [facility]'s was discussed. Also discussed with Dr. Hernandez from infectious disease. No other source of infection was found. Consultation: Dr. Scott and associates from critical care Dr. Rosales from general surgery Dr. Membreno from nephrology Dr. Hernandez from infectious disease Dr. Farr from neurology Dr. Petersen from orthopedic spine Dr. Prakash and associates from cardiology Physical examination: Vital signs 98.8, 108, 18, 121/76, 85% on room air GENERAL: Propped up in bed, awake EYES: Pupils equal. Conjunctiva normal. HEENT: External appearance of nose and ears normal, oral cavity grossly normal. NECK: JVD unable to assess, masses not palpable. HEART: First and second heart sounds are normal; some edema. LUNGS: Respiratory rate increased, decreased breath sounds. ABDOMEN: Soft, mild upper abdominal tenderness, MARICHUY drain is present.- PSYCH: AAO 3, mood and affect normal NEUROLOGICAL: Cranial nerves grossly intact, moving all 4 limbs Investigations: White count 13.7 hemoglobin 8.1 Computed tomography [id number] pseudocyst 24 cm Previous testing White count 13 hemoglobin 18.4 pressures 59 progression 4.3 crit 1.16 Total bilirubin 2.9 AST 440 ALT 574 Amylase 2794, lipase greater than 20,000 Computed tomography scan-moderate peripancreatic fat stranding, gallstones and a distended gallbladder with gallbladder wall thickening. Abdominal ultrasound-gallbladder thickening with intermittent small stones. Pericholecystic fluid EKG tracing-personally reviewed by me shows normal sinus rhythm nonspecific T- wave changes blood culture and sputum culture both negative Computed tomography scan abdomen-on August 06-large pseudocyst Assessment: -Enlarging pseudocyst, symptomatic. Increasing white count. Unclear at this is infected. No other obvious source of infection. MARICHUY drain is in place. -Patient has a increasing white count. Upper abdominal discomfort. Which is not new. Keeping his diet down lactic acid in the setting of renal failure. Not to relevant. Patient is clinically looks improved. -Acute cholecystitis secondary to choledocholithiasis, with possible ascending cholangitis,causing sepsis, status post open cholecystectomy on July 17. -Acute postprocedure blood loss anemia as expected from surgery, -Acute gallstone pancreatitis, , improved -Acute renal failure, likely ATN from hepatorenal, , started on renal replacement therapy on July 15, slow to respond -Essential hypertension -Septic and hypovolemic shock, status post pressor support, -Obesity BMI 31 -Hyperkalemia in a patient does take LORENA inhibitor's the setting of renal failure -Severe metabolic acidosis with lactic acidosis, improved -Acute hypoxic severe respiratory failure secondary to noncardiogenic pulmonary edema status post ventilator support, extubated on July 21, corrected -Symptomatic anemia from blood loss from the MARICHUY drain -Hypoalbuminemia, acute phase reactant Plan: Care was discussed with Dr. Allan, general surgeon from [facility]. Clinical information and details were provided. Patient be transferred there later today. Discussed with the counseling case manager. Discussed with the patient and . Patient be transferred for higher level of care. All the paperwork be sent. Discussion and discharge planning more than 35 minutes Patient Condition at Discharge: Undetermined Plan - Discharge Summary Discharge Rx Participant: No New Discharge Prescriptions: No Action Lisinopril-Hctz 10-12.5 mg [Zestoretic 10-12.5] 1 tab PO DAILY Multivitamins, Thera [Multivitamin (formulary)] 1 tab PO DAILY Discharge Medication List Lisinopril-Hctz 10-12.5 mg [Zestoretic 10-12.5] 1 tab PO DAILY 05/30/19 [History] Multivitamins, Thera [Multivitamin (formulary)] 1 tab PO DAILY 07/11/19 [History] Follow up Appointment(s)/Referral(s): Cj Malloy MD [Primary Care Provider] - 1-2 days Abhilash Henry PAC [PHYSICIAN MINCING MACHINE OPERATOR] - 4 Weeks (Patient may follow-up with Abhilash Henry PA-C or Dr. Aravind Petersen at [facility] in 3-4 weeks following discharge. ) Megha Chaves DO [STAFF PHYSICIAN] - 2 Weeks [facility], [NON-STAFF] - Berto Quintero MD [STAFF PHYSICIAN] - 4 Weeks (6-8 weeks follow up for stent removal from [facility] on 08/04/2019) Robin Rosales MD [STAFF PHYSICIAN] - 1 Week Activity/Diet/Wound Care/Special Instructions: Hemodialysis - [facility] - Wednesday, Wednesday, Wednesday @3:35 p.m. - on date of first treatment please arrive at 3:00 p.m. Discharge Disposition: OTHER INSTITUTION NOT DEFINED
--- NOTE | 2019-08-17 12:53 | P.OP ---
Date of Procedure: 07/17/19 Preoperative Diagnosis: Gallstone pancreatitis Postoperative Diagnosis: Gallstone hepatitis Severe cholecystitis Procedure(s) Performed: Diagnostic laparoscopy Open cholecystectomy Anesthesia: NAY Surgeon: Robin Rosales Estimated Blood Loss (ml): 100 Pathology: other (Gallbladder) Condition: stable Disposition: PACU Description of Procedure: The patient was placed on the operating table. The patient received a general endotracheal tube anesthesia. The patients abdomen was prepped and draped in the usual sterile fashion. Through an infraumbilical stab incision, the fascia of the anterior abdominal wall was grasped with a pair of Kochers and then the Veress needle was placed in the peritoneal cavity. Position of the Veress needle was confirmed with positive drop test. The abdomen was then insufflated. After adequate insufflation, the 10 mm trocar was placed in the peritoneal cavity. Following this the laparoscope was placed in the peritoneal cavity. The patient was placed in the head-up, right side up position and then a 5 mm trocar was placed in the right lateral and right subcostal position under direct visualization. A 8 mm trocar was placed in the epigastric position. The gallbladder was grasped in the fundus and infundibulum. Traction on the gallbladder was placed in the lateral and the cephalad positions. The triangle of Calot could not be visualized secondary to significant inflammatory changes of the gallbladder and jitendra hepatis. At this point decided to perform a subtotal cholecystectomy. A plane was made around the gallbladder infundibulum and then a 2-0 Ethibond suture was placed around this and then the gallbladder was ligated with a tie knot device. The gallbladder was then dissected free from the liver bed. There was some bleeding seen from liver bed. This could not be controlled laparoscopically. At this point the procedure was converted to an open procedure. The trochars withdrawn. A standard right subcostal incision was made. Left cautery was used to divide abdominal wall. The Bookwalter tract placed a wound. The gallbladder was visualized. The bleeding from the liver bed was then coagulated using left cautery. The gallbladder had been taken down in a dome down technique and then the infundibulum the gallbladder had been ligated with 2-0 Ethibond suture. The cystic artery was divided with the Harmonic scissors. At this point the gallbladder was then transected. The specimen sent to pathology. The wound was checked for hemostasis. There is no significant bleeding seen. A MARICHUY drains placed through separate stab incision. The drain was placed in gallbladder fossa. The fascia is closed loop #1 PDS suture. Skin was closed brad. The drain secured with 3-0 nylon. Patient was sent to the ICU in stable condition.
== END 2019-08-11 17:55 | disposition short-term general hospital (02) | DRG 853 ==
LOC: EC 06:13 → 4MS4W 07:50 → 3NMEDONC 11:06 → 2SICU 07-12 22:47 → 3SCARD 07-27 05:55
PROVIDERS: ADMIT Hospitalist; ATTEND Hospitalist
PROC: 5A1955Z Respiratory Ventilation, Greater than 96 Consecutive Hours (ICD-10-PCS; 2019-07-13)
PROC: 0BH17EZ Insertion of Endotracheal Airway into Trachea, Via Natural or Artificial Opening (ICD-10-PCS; 2019-07-13)
PROC: 0DJ08ZZ Inspection of Upper Intestinal Tract, Via Natural or Artificial Opening Endoscopic (ICD-10-PCS; 2019-07-13)
PROC: 03HY32Z Insertion of Monitoring Device into Upper Artery, Percutaneous Approach (ICD-10-PCS; 2019-07-13)
PROC: 4A133B1 Monitoring of Arterial Pressure, Peripheral, Percutaneous Approach (ICD-10-PCS; 2019-07-13)
PROC: 4A133J1 Monitoring of Arterial Pulse, Peripheral, Percutaneous Approach (ICD-10-PCS; 2019-07-13)
PROC: 0FT40ZZ Resection of Gallbladder, Open Approach (ICD-10-PCS; 2019-07-17)
PROC: 0FJ44ZZ Inspection of Gallbladder, Percutaneous Endoscopic Approach (ICD-10-PCS; 2019-07-17)
PROC: 03HY32Z Insertion of Monitoring Device into Upper Artery, Percutaneous Approach (ICD-10-PCS; 2019-07-18)
PROC: 4A133B1 Monitoring of Arterial Pressure, Peripheral, Percutaneous Approach (ICD-10-PCS; 2019-07-18)
PROC: 4A133J1 Monitoring of Arterial Pulse, Peripheral, Percutaneous Approach (ICD-10-PCS; 2019-07-18)
PROC: 02HV33Z Insertion of Infusion Device into Superior Vena Cava, Percutaneous Approach (ICD-10-PCS; 2019-07-27)
PROC: 30233N1 Transfusion of Nonautologous Red Blood Cells into Peripheral Vein, Percutaneous Approach (ICD-10-PCS; principal; 2019-07-27 09:15)
PROC: 0JH63XZ Insertion of Tunneled Vascular Access Device into Chest Subcutaneous Tissue and Fascia, Percutaneous Approach (ICD-10-PCS; 2019-07-28)
PROC: 02HV33Z Insertion of Infusion Device into Superior Vena Cava, Percutaneous Approach (ICD-10-PCS; 2019-07-28)
PROC: 5A1D70Z Performance of Urinary Filtration, Intermittent, Less than 6 Hours Per Day (ICD-10-PCS; 2019-07-29)
PROC: 0F798DZ Dilation of Common Bile Duct with Intraluminal Device, Via Natural or Artificial Opening Endoscopic (ICD-10-PCS; 2019-08-04)
DX: A41.9 Sepsis, unspecified organism (principal); G82.50 Quadriplegia, unspecified; G92 Toxic encephalopathy; J96.01 Acute respiratory failure with hypoxia; K65.9 Peritonitis, unspecified; K85.10 Biliary acute pancreatitis without necrosis or infection; N17.0 Acute kidney failure with tubular necrosis; R65.21 Severe sepsis with septic shock; R57.1 Hypovolemic shock; D62 Acute posthemorrhagic anemia; E44.0 Moderate protein-calorie malnutrition; E87.1 Hypo-osmolality and hyponatremia; E87.2 Acidosis; F11.20 Opioid dependence, uncomplicated; G62.81 Critical illness polyneuropathy; G72.81 Critical illness myopathy; J81.1 Chronic pulmonary edema; J90 Pleural effusion, not elsewhere classified; J98.11 Atelectasis; K56.7 Ileus, unspecified; K80.62 Calculus of gallbladder and bile duct with acute cholecystitis without obstruction; K86.3 Pseudocyst of pancreas; Z99.11 Dependence on respirator [ventilator] status; K83.09 Other cholangitis; D63.1 Anemia in chronic kidney disease; D69.6 Thrombocytopenia, unspecified; E11.22 Type 2 diabetes mellitus with diabetic chronic kidney disease; E66.9 Obesity, unspecified; E83.39 Other disorders of phosphorus metabolism; E87.5 Hyperkalemia; E87.70 Fluid overload, unspecified; F10.21 Alcohol dependence, in remission; F17.210 Nicotine dependence, cigarettes, uncomplicated; G89.29 Other chronic pain; H91.93 Unspecified hearing loss, bilateral; I12.9 Hypertensive chronic kidney disease with stage 1 through stage 4 chronic kidney disease, or unspecified chronic kidney disease; I48.91 Unspecified atrial fibrillation; K82.8 Other specified diseases of gallbladder; N18.9 Chronic kidney disease, unspecified; N50.89 Other specified disorders of the male genital organs; Z53.31 Laparoscopic surgical procedure converted to open procedure; Z53.09 Procedure and treatment not carried out because of other contraindication; Z68.34 Body mass index [BMI] 34.0-34.9, adult; Z79.2 Long term (current) use of antibiotics; Z79.4 Long term (current) use of insulin; Z82.49 Family history of ischemic heart disease and other diseases of the circulatory system; Z88.0 Allergy status to penicillin; Z86.010 Personal history of colon polyps; M54.5 Low back pain; K75.9 Inflammatory liver disease, unspecified
CPT/HCPCS: 36415; 36573; 36580; 36600; 43261; 43262; 43276; 43277; 71045; 71275; 72100; 74019; 74174; 74176; 74177; 74330; 76705; 77001; 78226; 80048; 80053; 80076; 80202; 82140; 82150; 82330; 82553; 82565; 82607; 82746; 82805; 83036; 83540; 83550; 83605; 83690; 83735; 83880; 84100; 84132; 84145; 84165; 84439; 84443; 84478; 84484; 85025; 85027; 85610; 85730; 86140; 86704; 86706; 86850; 86870; 86880; 86900; 86901; 86920; 87040; 87070; 87086; 87205; 87324; 87340; 88304; 90935; 93005; 93306; 94002; 94003; 94640; 94760; 94770; 96361; 96365; 96367; 96375; 96376; 99285

== ENCOUNTER 2019-08-25 21:21 | Inpatient (IN) | payer BC ==
[2019-08-25] MEDS ORDERED: SODIUM CHLORIDE 0.9% 1,000 ML IV STA ×3 (21:27→22:39)
[2019-08-25] MEDS ORDERED: fentaNYL (PF) 50 MCG/ML 2 ML AMP IVP STA (21:28)
[2019-08-25 21:38] LABS: Glucose,Whole Blood 153 mg/dL (75-99)
--- NOTE | 2019-08-25 21:39 | ED ---
Abdominal Pain HPI - General Stated Complaint: Abd pain Time Seen by Provider: 08/25/19 21:25 Source: patient, RN notes reviewed, old records reviewed Mode of arrival: EMS Limitations: no limitations - History of Present Illness Initial Comments: This is a 34-year-old male presented today in significant distress secondary to pain. Significant nausea no vomiting severe severe abdominal pain. Patient took last pain medications off a hours prior to arrival here in the ER. Patient called EMS secondary to severe abdominal pain, admits to dull pain throughout the day starting this morning. No fevers no travel show sick contacts had gallbladder surgery about 6 weeks ago concern for gallbladder disease or other issue. Patient has been taking all medications as prescribed denying any fevers at home MD Complaint: abdominal pain (severe) -: hour(s) Location: diffuse, periumbilical, epigastric, suprapubic Radiation: epigastric, suprapubic Migration to: no migration Severity: severe Severity scale (1-10): 9 Quality: stabbing, aching Consistency: constant Improves With: nothing Worsens With: nothing Associated Symptoms: nausea, vomiting - Related Data Home Medications Medication Instructions Recorded Confirmed HYDROcodone/APAP 5-325MG [Wolbach 1 tab PO Q6H PRN 08/25/19 08/25/19 5-325] Omeprazole 20 mg PO DAILY 08/25/19 08/25/19 Allergies Allergy/AdvReac Type Severity Reaction Status Date / Time amoxicillin Allergy Rash/Hives Verified 08/25/19 23:46 Review of Systems ROS Statement: Those systems with pertinent positive or pertinent negative responses have been documented in the HPI. ROS Other: All systems not noted in ROS Statement are negative. Past Medical History Past Medical History: Hearing Disorder / Deafness, Hypertension Additional Past Medical History / Comment(s): HAD A HEART MURMUR WHEN A CHILD- NEVER HEARD ANYTHING AFTER THAT ABOUT IT, SL. HEARLING LOSS YAMILA. EARS History of Any Multi-Drug Resistant Organisms: None Reported Past Surgical History: No Surgical Hx Reported Additional Past Surgical History / Comment(s): Colonoscopy with benign polypectomy Past Anesthesia/Blood Transfusion Reactions: No Reported Reaction Past Psychological History: No Psychological Hx Reported Smoking Status: Former smoker Past Alcohol Use History: Occasional Past Drug Use History: None Reported - Past Family History Father Family Medical History: Coronary Artery Disease (CAD) Additional Family Medical History / Comment(s): Father had 4 vessel CABG Mother Family Medical History: Hypertension General Exam Limitations: no limitations General appearance: alert, in no apparent distress, anxious, in distress Head exam: Present: atraumatic, normocephalic, normal inspection Eye exam: Present: normal appearance, PERRL, EOMI. Absent: scleral icterus, conjunctival injection, periorbital swelling ENT exam: Present: normal exam, mucous membranes moist Neck exam: Present: normal inspection. Absent: tenderness, meningismus, lymphadenopathy Respiratory exam: Present: normal lung sounds bilaterally. Absent: respiratory distress, wheezes, rales, rhonchi, stridor Cardiovascular Exam: Present: normal rhythm, tachycardia, normal heart sounds. Absent: systolic murmur, diastolic murmur, rubs, gallop, clicks GI/Abdominal exam: Present: distended, tenderness, guarding, normal bowel sounds. Absent: rebound, rigid Extremities exam: Present: normal inspection, full ROM, normal capillary refill. Absent: tenderness, pedal edema, joint swelling, calf tenderness Back exam: Present: normal inspection Neurological exam: Present: alert, oriented X3, CN II-XII intact Psychiatric exam: Present: normal affect, normal mood Skin exam: Present: warm, dry, intact, normal color. Absent: rash Course Vital Signs 08/25/19 08/25/19 08/25/19 21:24 21:30 21:53 Temperature 98.8 F Pulse Rate 132 H 123 H 122 H Respiratory 22 33 H Rate Blood Pressure 133/72 135/83 143/83 O2 Sat by Pulse 91 L 92 L 94 L Oximetry 08/25/19 08/25/19 08/25/19 22:04 22:05 22:10 Temperature Pulse Rate 101 H 122 H 120 H Respiratory 37 H 29 H 30 H Rate Blood Pressure 101/87 136/87 129/87 O2 Sat by Pulse 92 L 95 97 Oximetry 08/25/19 08/25/19 22:20 23:00 Temperature Pulse Rate 123 H 135 H Respiratory 30 H 40 H Rate Blood Pressure 146/94 143/89 O2 Sat by Pulse 97 91 L Oximetry - Reevaluation(s) Reevaluation #1: 08/25/19 23:59 Medical record is reviewed Reevaluation #2: 08/25/19 23:59 Patient is unable to get pain control here in the ER Reevaluation #3: 08/26/19 00:55 Pain is mildly improved - Consultations Consultation #1: spoke w [facility] is agreeable for admission Medical Decision Making - Medical Decision Making 51 female here for evaluation presents today for evaluation regards to bowel pain severe abdominal pain acute pancreatitis will admit for hydration, pain control - Lab Data Result diagrams: 08/25/19 21:33 08/25/19 21:33 Lab Results 08/25/19 08/25/19 08/25/19 Range/Units 21:23 21:33 21:33 WBC 21.5 H (3.8-10.6) k/uL RBC 3.45 L (4.30-5.90) m/uL Hgb 9.9 L D (13.0-17.5) gm/dL Hct 31.9 L (39.0-53.0) % MCV 92.4 (80.0-100.0) fL MCH 28.5 (25.0-35.0) pg MCHC 30.9 L (31.0-37.0) g/dL RDW 13.9 (11.5-15.5) % Plt Count 760 H D (150-450) k/uL Neutrophils % 77 % Lymphocytes % 15 % Monocytes % 5 % Eosinophils % 1 % Basophils % 1 % Neutrophils # 16.5 H (1.3-7.7) k/uL Lymphocytes # 3.2 (1.0-4.8) k/uL Monocytes # 1.1 H (0-1.0) k/uL Eosinophils # 0.2 (0-0.7) k/uL Basophils # 0.2 (0-0.2) k/uL Hypochromasia Moderate PT (9.0-12.0) sec INR (<1.2) APTT (22.0-30.0) sec Sodium 139 (137-145) mmol/L Potassium 4.4 (3.5-5.1) mmol/L Chloride 104 (98-107) mmol/L Carbon Dioxide 21 L (22-30) mmol/L Anion Gap 14 mmol/L BUN 27 H (9-20) mg/dL Creatinine 1.78 H (0.66-1.25) mg/dL Est GFR (CKD-EPI)AfAm 49 (>60 ml/min/1.73 sqM) Est GFR (CKD-EPI)NonAf 43 (>60 ml/min/1.73 sqM) Glucose 136 H (74-99) mg/dL POC Glucose (mg/dL) (75-99) mg/dL POC Glu Online Tutor ID Plasma Lactic Acid Rusty (0.7-2.0) mmol/L Calcium 9.1 (8.4-10.2) mg/dL Phosphorus 4.7 H (2.5-4.5) mg/dL Magnesium 1.4 L (1.6-2.3) mg/dL Total Bilirubin 0.5 (0.2-1.3) mg/dL AST 29 (17-59) U/L ALT 17 (4-49) U/L Alkaline Phosphatase 166 H (38-126) U/L Troponin I (0.000-0.034) ng/mL NT-Pro-B Natriuret Pep pg/mL Total Protein 6.4 (6.3-8.2) g/dL Albumin 3.5 (3.5-5.0) g/dL Lipase 378 H (23-300) U/L Blood Type A Positive Blood Type Recheck A Pos Bld Type Recheck Status No Antibody Screen NEGATIVE Crossmatch See Detail Spec Expiration Date 08/28/2019 - 232208/25/19 08/25/19 08/25/19 Range/Units 21:33 21:33 21:33 WBC (3.8-10.6) k/uL RBC (4.30-5.90) m/uL Hgb (13.0-17.5) gm/dL Hct (39.0-53.0) % MCV (80.0-100.0) fL MCH (25.0-35.0) pg MCHC (31.0-37.0) g/dL RDW (11.5-15.5) % Plt Count (150-450) k/uL Neutrophils % % Lymphocytes % % Monocytes % % Eosinophils % % Basophils % % Neutrophils # (1.3-7.7) k/uL Lymphocytes # (1.0-4.8) k/uL Monocytes # (0-1.0) k/uL Eosinophils # (0-0.7) k/uL Basophils # (0-0.2) k/uL Hypochromasia PT 10.5 (9.0-12.0) sec INR 1.0 (<1.2) APTT 21.8 L (22.0-30.0) sec Sodium (137-145) mmol/L Potassium (3.5-5.1) mmol/L Chloride (98-107) mmol/L Carbon Dioxide (22-30) mmol/L Anion Gap mmol/L BUN (9-20) mg/dL Creatinine (0.66-1.25) mg/dL Est GFR (CKD-EPI)AfAm (>60 ml/min/1.73 sqM) Est GFR (CKD-EPI)NonAf (>60 ml/min/1.73 sqM) Glucose (74-99) mg/dL POC Glucose (mg/dL) (75-99) mg/dL POC Glu Online Tutor ID Plasma Lactic Acid Rusty 3.4 H* (0.7-2.0) mmol/L Calcium (8.4-10.2) mg/dL Phosphorus (2.5-4.5) mg/dL Magnesium (1.6-2.3) mg/dL Total Bilirubin (0.2-1.3) mg/dL AST (17-59) U/L ALT (4-49) U/L Alkaline Phosphatase (38-126) U/L Troponin I (0.000-0.034) ng/mL NT-Pro-B Natriuret Pep 284 pg/mL Total Protein (6.3-8.2) g/dL Albumin (3.5-5.0) g/dL Lipase (23-300) U/L Blood Type Blood Type Recheck Bld Type Recheck Status Antibody Screen Crossmatch Spec Expiration Date 08/25/19 08/25/19 Range/Units 21:33 21:34 WBC (3.8-10.6) k/uL RBC (4.30-5.90) m/uL Hgb (13.0-17.5) gm/dL Hct (39.0-53.0) % MCV (80.0-100.0) fL MCH (25.0-35.0) pg MCHC (31.0-37.0) g/dL RDW (11.5-15.5) % Plt Count (150-450) k/uL Neutrophils % % Lymphocytes % % Monocytes % % Eosinophils % % Basophils % % Neutrophils # (1.3-7.7) k/uL Lymphocytes # (1.0-4.8) k/uL Monocytes # (0-1.0) k/uL Eosinophils # (0-0.7) k/uL Basophils # (0-0.2) k/uL Hypochromasia PT (9.0-12.0) sec INR (<1.2) APTT (22.0-30.0) sec Sodium (137-145) mmol/L Potassium (3.5-5.1) mmol/L Chloride (98-107) mmol/L Carbon Dioxide (22-30) mmol/L Anion Gap mmol/L BUN (9-20) mg/dL Creatinine (0.66-1.25) mg/dL Est GFR (CKD-EPI)AfAm (>60 ml/min/1.73 sqM) Est GFR (CKD-EPI)NonAf (>60 ml/min/1.73 sqM) Glucose (74-99) mg/dL POC Glucose (mg/dL) 153 H (75-99) mg/dL POC Glu Online Tutor Melinda Batista Plasma Lactic Acid Rusty (0.7-2.0) mmol/L Calcium (8.4-10.2) mg/dL Phosphorus (2.5-4.5) mg/dL Magnesium (1.6-2.3) mg/dL Total Bilirubin (0.2-1.3) mg/dL AST (17-59) U/L ALT (4-49) U/L Alkaline Phosphatase (38-126) U/L Troponin I <0.012 (0.000-0.034) ng/mL NT-Pro-B Natriuret Pep pg/mL Total Protein (6.3-8.2) g/dL Albumin (3.5-5.0) g/dL Lipase (23-300) U/L Blood Type Blood Type Recheck Bld Type Recheck Status Antibody Screen Crossmatch Spec Expiration Date - EKG Data -: EKG Interpreted by Me (EKG shows sinus tachycardia 120 MO 134, QRS 88, QTc 449) - Radiology Data Radiology results: report reviewed (EKG chest abdomen pelvis secondary to level of distress does show acute pancreatitis with ascites), image reviewed Disposition Clinical Impression: Leukocytosis, Pancreatitis, ARF (acute renal failure), Abdominal pain, Ascites Disposition: ADMITTED IP TO THIS HOSP Condition: Serious Is patient prescribed a controlled substance at d/c from ED?: No Referrals: Cj Malloy MD [Primary Care Provider] - 1-2 days
[2019-08-25 21:47] LABS: Basophils # (A) 0.2 k/uL (0-0.2); Basophils % (A) 1 %; Eosinophils # (A) 0.2 k/uL (0-0.7); Eosinophils % (A) 1 %; HCT 31.9 % (39.0-53.0); Hypochromasia Moderate; Lymphocytes # (A) 3.2 k/uL (1.0-4.8); Lymphocytes % (A) 15 %; MCH 28.5 pg (25.0-35.0); MCHC 30.9 g/dL (31.0-37.0); MCV 92.4 fL (80.0-100.0); Mean Platelet Volume 6.9; Monocytes # (A) 1.1 k/uL (0-1.0); Monocytes % (A) 5 %; Neutrophils # (A) 16.5 k/uL (1.3-7.7); Neutrophils % (A) 77 %; RBC 3.45 m/uL (4.30-5.90); RDW 13.9 % (11.5-15.5); WBC 21.5 k/uL (3.8-10.6)
[2019-08-25 21:53] LABS: HGB 9.9 gm/dL (13.0-17.5); Platelet Count 760 k/uL (150-450)
[2019-08-25] MEDS ORDERED: fentaNYL (PF) 50 MCG/ML 2 ML AMP IVP PRN (22:00)
[2019-08-25 22:01] LABS: Albumin 3.5 g/dL (3.5-5.0); Calcium 9.1 mg/dL (8.4-10.2); Magnesium 1.4 mg/dL (1.6-2.3); Phosphorus 4.7 mg/dL (2.5-4.5); Potassium 4.4 mmol/L (3.5-5.1); Total Bilirubin 0.5 mg/dL (0.2-1.3); Total Protein 6.4 g/dL (6.3-8.2)
[2019-08-25 22:05] LABS: Prothrombin Time 10.5 sec (9.0-12.0)
[2019-08-25 22:12] LABS: Partial Thromboplastin Time 21.8 sec (22.0-30.0)
--- NOTE | 2019-08-25 22:33 | CT ---
EXAMINATION TYPE: CT angio thor/abd pel aorta DATE OF EXAM: 08/25/2019 COMPARISON: August 10, 2019 HISTORY: abdominal pain, constipation CT DLP: 2373.8 mGycm Automated exposure control for dose reduction was used. CONTRAST: Performed with IV Contrast, patient injected with 100 mL of Isovue 370. There are 3-D post processed images. Multiple axial sections were obtained from the thoracic inlet to the floor the pelvis without and wit h IV contrast. Thoracic aorta is intact. There is no aneurysm or dissection. There is bilateral arterial flow in the iliac and femoral arteries. There is bilateral arterial flow in the renal arteries. There is bilater al arterial flow in the celiac artery and superior mesenteric artery. I see no evidence of hemodynami c stenosis. There is mild subsegmental atelectasis at the lung bases. Heart size is normal. There is no pericardi al effusion. There is moderate abdominal ascites. There is extensive fluid accumulation in the retroperitoneum teresa und the pancreas. There is apparent biliary stent. The bile ducts are not dilated. There is no adrenal mass. Kidneys have normal size and contour. There is no hydronephrosis. There is no retroperitoneal adenopathy. There is no sign of free air. Bladder distends smoothly. IMPRESSION: Negative CT angiogram of the chest abdomen pelvis. No evidence of arterial stenosis. No evidence of a neurysm or dissection. Abdominal ascites with extensive fluid and inflammatory process of the pancreas consistent with sever e pancreatitis. Atelectasis unchanged compared to old exam. Extensive fluid accumulation in the retroperitoneum impro rosa maria compared to last exam. This is consistent with improvement in very large pseudocyst. The abdomina l ascites appears new compared to old exam.
[2019-08-25] MEDS ORDERED: HYDROmorphone 1 MG/ML 1 ML SYRINGE IVP STA (22:39)
[2019-08-25] MEDS ORDERED: SODIUM CHLORIDE 0.9% 500 ML 500 ML IV STA (22:39)
[2019-08-25] MEDS ORDERED: LORazepam 2 MG/ML INJ IV PRN (23:59)
[2019-08-25] MEDS ORDERED: LORazepam 2 MG/ML INJ IV STA (23:59)
[2019-08-25] MEDS ORDERED: diphenhydrAMINE 50 MG/ML 1 ML VIAL IVP PRN (23:59)
[2019-08-25] MEDS ORDERED: diphenhydrAMINE 50 MG/ML 1 ML VIAL IVP STA (23:59)
[2019-08-26] MEDS ORDERED: IPRATROPIUM-ALBUTEROL 3 ML NEB INHALATION PRN (00:08)
[2019-08-26] MEDS ORDERED: IPRATROPIUM-ALBUTEROL 3 ML NEB INHALATION STA (00:08)
[2019-08-26] MEDS ORDERED: LEVOFLOXACIN 750MG-D5W PMX 750 MG in DEXTROSE/WATER 1 150ML.BAG IVPB STA (00:08)
[2019-08-26] MEDS ORDERED: LEVOFLOXACIN 750MG-D5W PMX 750 MG in DEXTROSE/WATER 1 150ML.BAG IVPB SCH ×2 (00:15→22:00)
[2019-08-26] MEDS: METOPROLOL TARTRATE 25 MG TAB PO SCH ×2 (01:43→08:26)
[2019-08-26 03:01] LABS: Calcium 8.8 mg/dL (8.4-10.2); Potassium 5.1 mmol/L (3.5-5.1); Total Bilirubin 0.6 mg/dL (0.2-1.3); Total Protein 5.7 g/dL (6.3-8.2)
[2019-08-26] MEDS ORDERED: METOPROLOL TARTRATE 25 MG TAB PO STA (03:24)
[2019-08-26] MEDS: HYDROmorphone 1 MG/ML 1 ML SYRINGE IVP PRN ×4 (04:47→14:00)
[2019-08-26 09:05] VITALS: RESP 18
[2019-08-26 10:14] LABS: HGB 11.5 gm/dL (13.0-17.5); Hypochromasia Marked; MCHC 28.2 g/dL (31.0-37.0); MCV 95.9 fL (80.0-100.0); Mean Platelet Volume 7.5; Platelet Count 670 k/uL (150-450); RBC 4.27 m/uL (4.30-5.90); RDW 13.8 % (11.5-15.5)
--- NOTE | 2019-08-26 11:02 | XR ---
EXAMINATION TYPE: XR chest 1V DATE OF EXAM: 08/26/2019 HISTORY: sob. REFERENCE: Previous study dated 08/05/2019. FINDINGS: The patient's large-bore double-lumen catheter has been removed. Patient has taken extremely poor inspiration. There is bibasilar atelectasis. Heart size is obscured. I cannot exclude small, bilateral effusions. IMPRESSION: EXTREMELY POOR INSPIRATION DEMONSTRATING BIBASILAR ATELECTASIS WELL QUESTIONABLE, SMALL, BILATE RAL EFFUSIONS
[2019-08-26 11:11] LABS: Lymphocytes # (M) 0.14 k/uL (1.0-4.8); Monocytes # (M) 0.98 k/uL (0-1.0); Neutrophils # (M) 12.88 k/uL (1.3-7.7); Neutrophils % (M) 92 %; Nucleated Red Blood Cells 0 /100 WBC (0-0); Total Cells Counted 100
--- NOTE | 2019-08-26 11:28 | P.HPIM ---
History of Present Illness This is a pleasant 54 years old male with past medical history of hearing disorder, hypertension. Chronic back pain, End-stage renal disease on hemodialysis, chronic leukocytosis. now presents because of abdominal pain. He was recently in the hospital for acute severe gallstone pancreatitis complicated by multiple organ failures and discharged on 08/11/19 where he had open cholecystectomy and status post ERCP and stent placement for bile duct, he had acute on chronic kidney disease and getting hemodialysis. Critical illness polyneuropathy and myopathy, also he was in the ICU for a while. He had large pseudocyst compressing the stomach This time he came to the emergency room with severe abdominal pain, he had a large meal with [place] food and after 2 hours difficult hardly with no blood on the top plan followed immediately by severe abdominal pain, periumbilical about 10/10 in severity now coming down to 8/10, constant with no nausea or vomiting. Patient has constipation follow last 3-4 days. Also he has bilateral shoulder pain more on the right side. He has no chest pain or dyspnea. No fever but he has cold sweats. No significant headache. His extremity weakness since last as admission is improved Vitals stable however patient is tachycardic at 124-138. He is tachypneic at 34, blood pressure 125/86, his blood pressure on admission was 133/72 he is saturating 98% on room air. leukocytosis of 21.5k, which is chronic, hemoglobin 9.9. platelets 760. inr is 1.0, lactic acid is elevated at 2.7-3.9, creatinine is 1.6-1.7, which is improved from last time creatinine of 3.0-5.0. liver enzymes not elevated, magnesium 1.4, lipase 378 EKG shows sinus tachycardia at 128. He had negative CT angiogram of the chest/abdomen/pelvis with no evidence of arterial stenosis, aneurysm or dissection, abdominal ascites with severe inflammatory process of the pancreas consistent with severe pancreatitis, imp roved pseudocyst. Chest x-ray showing bilateral atelectasis and small pleural effusion On admission patient was started on Dilaudid and fentanyl, he was given several boluses of normal saline, 2.5 L He was given Levaquin and Rocephin GI and cardiology were consulted from emergency room. Review of Systems CONSTITUTIONAL: No fever, no malaise, no fatigue. HEENT: No recent visual problems or hearing problems. Denied any sore throat. CARDIOVASCULAR: No orthopnea, PND, no palpitations, no syncope. PULMONARY: No shortness of breath, no cough, no hemoptysis. GASTROINTESTINAL: No diarrhea, no nausea, no vomiting, Normoactive bowel sounds. NEUROLOGICAL: No headaches, no weakness, no numbness. HEMATOLOGICAL: Denies any bleeding or petechiae. GENITOURINARY: Denies any burning micturition, frequency, or urgency. MUSCULOSKELETAL/RHEUMATOLOGICAL: Denies any joint pain, swelling, or any muscle pain. ENDOCRINE: Denies any polyuria or polydipsia. Past Medical History Past Medical History: Hearing Disorder / Deafness, Hypertension Additional Past Medical History / Comment(s): HAD A HEART MURMUR WHEN A CHILD- NEVER HEARD ANYTHING AFTER THAT ABOUT IT, SL. HEARLING LOSS YAMILA. EARS. History of Any Multi-Drug Resistant Organisms: None Reported Past Surgical History: Cholecystectomy Additional Past Surgical History / Comment(s): Colonoscopy with benign polypectomy Past Anesthesia/Blood Transfusion Reactions: No Reported Reaction Past Psychological History: No Psychological Hx Reported Additional Psychological History / Comment(s): Pt resides with his spouse. He is independent. Smoking Status: Former smoker Past Alcohol Use History: Occasional Additional Past Alcohol Use History / Comment(s): Pt smokes occasional cigar during summer months. Pt states he drinks alcohol on the weekends only and not more than 14 drinks. Past Drug Use History: None Reported - Past Family History Father Family Medical History: Coronary Artery Disease (CAD) Additional Family Medical History / Comment(s): Father had 4 vessel CABG Mother Family Medical History: Hypertension Medications and Allergies Home Medications Medication Instructions Recorded Confirmed Type HYDROcodone/APAP 5-325MG [[place] 1 tab PO Q6H PRN 08/25/19 08/25/19 History 5-325] Omeprazole 20 mg PO DAILY 08/25/19 08/25/19 History Allergies Allergy/AdvReac Type Severity Reaction Status Date / Time amoxicillin Allergy Rash/Hives Verified 08/26/19 00:46 Physical Exam Vitals: Vital Signs Temp Pulse Pulse Pulse Resp BP BP 08/26/19 08:00 97.5 F L 137 H 18 125/86 08/26/19 04:50 124 H 34 H 119/87 08/26/19 03:34 138 H 38 H 117/79 08/26/19 02:28 160 H 46 H 08/26/19 02:21 157 H 48 H 127/80 08/26/19 01:59 98.0 F 149 H 50 H 134/88 08/26/19 01:10 37 H 08/26/19 00:46 98.9 F 140 H 19 146/97 08/25/19 23:00 135 H 40 H 143/89 08/25/19 22:20 123 H 30 H 146/94 08/25/19 22:10 120 H 30 H 129/87 08/25/19 22:05 122 H 29 H 136/87 08/25/19 22:04 101 H 37 H 101/87 08/25/19 21:53 122 H 33 H 143/83 08/25/19 21:30 123 H 135/83 08/25/19 21:24 98.8 F 132 H 22 133/72 Pulse Ox 08/26/19 08:00 98 08/26/19 04:50 96 08/26/19 03:34 97 08/26/19 02:28 08/26/19 02:21 96 08/26/19 01:59 92 L 08/26/19 01:10 96 08/26/19 00:46 93 L 08/25/19 23:00 91 L 08/25/19 22:20 97 08/25/19 22:10 97 08/25/19 22:05 95 08/25/19 22:04 92 L 08/25/19 21:53 94 L 08/25/19 21:30 92 L 08/25/19 21:24 91 L Intake and Output 08/25/19 08/26/19 08/26/19 22:59 06:59 14:59 Intake Total 3000 Balance 3000 Intake: Amount of Fluid Infused ( 2500 ml) Intake, IV Titration 500 Amount Sodium Chloride 0.9% 1, 500 000 ml @ 100 mls/hr IV . Q10H STA Rx#:[id number] Other: Weight 102.058 kg 102.058 kg GENERAL: The patient is alert and oriented x3, not in any acute distress. Well developed, well nourished. HEENT: Pupils are round and equally reacting to light. EOMI. No scleral icterus. No conjunctival pallor. Normocephalic, atraumatic. No pharyngeal erythema. No thyromegaly. CARDIOVASCULAR: S1 and S2 present. No murmurs, rubs, or gallops. PULMONARY: Chest is clear to auscultation, no wheezing or crackles. -ABDOMEN: Soft, periumbilical tenderness with guarding but no rebound tenderness, nondistended, normoactive bowel sounds. No palpable organomegaly. Right upper quadrant scar from recent surgery MUSCULOSKELETAL: No joint swelling or deformity. EXTREMITIES: No cyanosis, clubbing, or pedal edema. NEUROLOGICAL: Gross neurological examination did not reveal any focal deficits. SKIN: No rashes. No petechiae Results CBC & Chem 7: 08/26/19 07:55 08/26/19 02:01 Labs: Abnormal Lab Results - Last 24 Hours (Table) 08/25/19 08/25/19 08/25/19 Range/Units 21:23 21:33 21:33 WBC 21.5 H (3.8-10.6) k/uL RBC 3.45 L (4.30-5.90) m/uL Hgb 9.9 L D (13.0-17.5) gm/dL Hct 31.9 L (39.0-53.0) % MCHC 30.9 L (31.0-37.0) g/dL Plt Count 760 H D (150-450) k/uL Neutrophils # 16.5 H (1.3-7.7) k/uL Monocytes # 1.1 H (0-1.0) k/uL APTT (22.0-30.0) sec Carbon Dioxide 21 L (22-30) mmol/L BUN 27 H (9-20) mg/dL Creatinine 1.78 H (0.66-1.25) mg/dL Glucose 136 H (74-99) mg/dL POC Glucose (mg/dL) (75-99) mg/dL Plasma Lactic Acid Rusty (0.7-2.0) mmol/L Phosphorus 4.7 H (2.5-4.5) mg/dL Magnesium 1.4 L (1.6-2.3) mg/dL Alkaline Phosphatase 166 H (38-126) U/L Total Protein (6.3-8.2) g/dL Albumin (3.5-5.0) g/dL Lipase 378 H (23-300) U/L Crossmatch See Detail 08/25/19 08/25/19 08/25/19 Range/Units 21:33 21:33 21:34 WBC (3.8-10.6) k/uL RBC (4.30-5.90) m/uL Hgb (13.0-17.5) gm/dL Hct (39.0-53.0) % MCHC (31.0-37.0) g/dL Plt Count (150-450) k/uL Neutrophils # (1.3-7.7) k/uL Monocytes # (0-1.0) k/uL APTT 21.8 L (22.0-30.0) sec Carbon Dioxide (22-30) mmol/L BUN (9-20) mg/dL Creatinine (0.66-1.25) mg/dL Glucose (74-99) mg/dL POC Glucose (mg/dL) 153 H (75-99) mg/dL Plasma Lactic Acid Rusty 3.4 H* (0.7-2.0) mmol/L Phosphorus (2.5-4.5) mg/dL Magnesium (1.6-2.3) mg/dL Alkaline Phosphatase (38-126) U/L Total Protein (6.3-8.2) g/dL Albumin (3.5-5.0) g/dL Lipase (23-300) U/L Crossmatch 08/26/19 08/26/19 08/26/19 Range/Units 02:01 02:01 06:57 WBC (3.8-10.6) k/uL RBC (4.30-5.90) m/uL Hgb (13.0-17.5) gm/dL Hct (39.0-53.0) % MCHC (31.0-37.0) g/dL Plt Count (150-450) k/uL Neutrophils # (1.3-7.7) k/uL Monocytes # (0-1.0) k/uL APTT (22.0-30.0) sec Carbon Dioxide 18 L (22-30) mmol/L BUN 26 H (9-20) mg/dL Creatinine 1.67 H (0.66-1.25) mg/dL Glucose 174 H (74-99) mg/dL POC Glucose (mg/dL) (75-99) mg/dL Plasma Lactic Acid Rusty 2.7 H* 3.9 H* (0.7-2.0) mmol/L Phosphorus (2.5-4.5) mg/dL Magnesium (1.6-2.3) mg/dL Alkaline Phosphatase 142 H (38-126) U/L Total Protein 5.7 L (6.3-8.2) g/dL Albumin 3.0 L (3.5-5.0) g/dL Lipase (23-300) U/L Crossmatch Assessment and Plan Assessment: -jennifer-Umbilical abdominal pain, consulting GI and surgery team -Abdominal ascites -Recent history of acute severe gallstone pancreatitis complicated by multiple organ failures including renal failure needing hemodialysis,he is a status post cholecystectomy and status post ERCP and stent placement for bile duct -Elevated creatinine, improvement compared to last admission -Elevated lactic acid -Abdominal pseudocyst, improving -Chronic leukocytosis -Bilateral atelectasis -Hypertension -history of hearing difficulty Plan: This is a pleasant 54 years old male who presents with abdominal pain, and new ascites and Tachycardia Consult and follow up recommendation by GI and cardiology services, consult surgery service. consult nephrology service in view of high creatinine, IV contrast and high lactic acid. Encourage incentive spirometry. Pain management. Continue with IV fluids and antibiotics. Follow-up labs Labs and medication were reviewed.. Continue same treatment. Continue with symptomatic treatment. Resume home medication. Monitor lytes and vitals. DVT and GI prophylaxis. Further recommendations of the clinical course of the pat ient DVT prophylaxis: Subcutaneous heparin GI Prophylaxis: Ppi PT/OT: Pending Prognosis is guarded
[2019-08-26] MEDS ORDERED: HEPARIN SODIUM,PORCINE 5,000 UNIT/ML 1 ML VIAL SQ SCH (11:30)
[2019-08-26 11:51] LABS: Bilirubin, Delta 0.4 mg/dL (0.0-0.2); Bilirubin,Unconjugated 0.2 mg/dL (0.0-1.1); Total Bilirubin 0.6 mg/dL (0.2-1.3); Total Protein 5.9 g/dL (6.3-8.2)
[2019-08-26] MEDS ORDERED: MAGNESIUM CITRATE 296 ML BOTTLE PO ONE (12:00)
[2019-08-26 13:18] VITALS: BP 126/84; PULSE 115; TEMP 97.7
--- NOTE | 2019-08-26 13:25 | P.NPCON ---
History of Present Illness - Reason for Consult Consult date: 08/26/19 acute renal failure - Chief Complaint Abdominal pain - History of Present Illness 54-year-old gentleman coming to the hospital with abdominal pain. He has pancreatitis in July with septic shock leading to ATN dialysis dependency. Last dialysis was 2 weeks ago and his permacath was removed. Coming to the hospital with abdominal pain and acute pancreatitis. Creatinine 1.7 on admission and 1.6 today. He makes good amount of urine. No nausea vomiting or diarrhea. No NSAID use. He was given a CTA of the abdomen and chest and 100 mL of dye was used. He was hydrated with fluids. Review of Systems Constitutional: Reports as per HPI Past Medical History Past Medical History: Hearing Disorder / Deafness, Hypertension Additional Past Medical History / Comment(s): HAD A HEART MURMUR WHEN A CHILD- NEVER HEARD ANYTHING AFTER THAT ABOUT IT, SL. HEARLING LOSS YAMILA. EARS. History of Any Multi-Drug Resistant Organisms: None Reported Past Surgical History: Cholecystectomy Additional Past Surgical History / Comment(s): Colonoscopy with benign polypectomy Past Anesthesia/Blood Transfusion Reactions: No Reported Reaction Past Psychological History: No Psychological Hx Reported Additional Psychological History / Comment(s): Pt resides with his spouse. He is independent. Smoking Status: Former smoker Past Alcohol Use History: Occasional Additional Past Alcohol Use History / Comment(s): Pt smokes occasional cigar during summer months. Pt states he drinks alcohol on the weekends only and not more than 14 drinks. Past Drug Use History: None Reported - Past Family History Father Family Medical History: Coronary Artery Disease (CAD) Additional Family Medical History / Comment(s): Father had 4 vessel CABG Mother Family Medical History: Hypertension Medications and Allergies Home Medications Medication Instructions Recorded Confirmed Type HYDROcodone/APAP 5-325MG [[place] 1 tab PO Q6H PRN 08/25/19 08/25/19 History 5-325] Omeprazole 20 mg PO DAILY 08/25/19 08/25/19 History Allergies Allergy/AdvReac Type Severity Reaction Status Date / Time amoxicillin Allergy Rash/Hives Verified 08/26/19 00:46 Physical Exam Vitals: Vital Signs Temp Pulse Pulse Pulse Resp BP BP 08/26/19 08:00 97.5 F L 137 H 18 125/86 08/26/19 04:50 124 H 34 H 119/87 08/26/19 03:34 138 H 38 H 117/79 08/26/19 02:28 160 H 46 H 08/26/19 02:21 157 H 48 H 127/80 08/26/19 01:59 98.0 F 149 H 50 H 134/88 08/26/19 01:10 37 H 08/26/19 00:46 98.9 F 140 H 19 146/97 08/25/19 23:00 135 H 40 H 143/89 08/25/19 22:20 123 H 30 H 146/94 08/25/19 22:10 120 H 30 H 129/87 08/25/19 22:05 122 H 29 H 136/87 08/25/19 22:04 101 H 37 H 101/87 08/25/19 21:53 122 H 33 H 143/83 08/25/19 21:30 123 H 135/83 08/25/19 21:24 98.8 F 132 H 22 133/72 Pulse Ox 08/26/19 08:00 98 08/26/19 04:50 96 08/26/19 03:34 97 08/26/19 02:28 08/26/19 02:21 96 08/26/19 01:59 92 L 08/26/19 01:10 96 08/26/19 00:46 93 L 08/25/19 23:00 91 L 08/25/19 22:20 97 08/25/19 22:10 97 08/25/19 22:05 95 08/25/19 22:04 92 L 08/25/19 21:53 94 L 08/25/19 21:30 92 L 08/25/19 21:24 91 L Intake and Output 08/25/19 08/26/19 08/26/19 22:59 06:59 14:59 Intake Total 3000 850 Balance 3000 850 Intake: Amount of Fluid Infused ( 2500 ml) Intake, IV Titration 500 850 Amount Sodium Chloride 0.9% 1, 500 800 000 ml @ 100 mls/hr IV . Q10H STA Rx#:[id number] cefTRIAXone 1 gm In 50 Sodium Chloride 0.9% 50 ml @ 100 mls/hr IVPB Q12H OBEY Rx#:[id number] Other: Weight 102.058 kg 102.058 kg No acute distress S1-S2 heard Decreased breath sounds Abdomen soft Trace edema Results - Lab Results Most recent lab results Calcium 8.8 mg/dL (8.4-10.2) 08/26/19 02:01 Phosphorus 4.7 mg/dL (2.5-4.5) H 08/25/19 21:33 Magnesium 1.4 mg/dL (1.6-2.3) L 08/25/19 21:33 08/26/19 07:55 08/26/19 02:01 Assessment and Plan Assessment: #1 acute kidney injury secondary to ATN requiring dialysis, currently off dialysis creatinine improving. #2 chronic kidney disease stage III secondary to dialysis dependent acute kidney injury. Baseline seems to be around 1.6-1.7 MG per DL. #3 pancreatitis #4 metabolic acidosis secondary to lactic acidosis #5 mild hyperkalemia Plan: #1 start IV fluids 0.9 at 75 ML's an hour. #2 avoid nephrotoxic agents and hypotensive episodes. #3 no acute indication for renal replacement therapy at this time. #4 check urine analysis, bladder scans and labs in the morning.
[2019-08-26] MEDS ORDERED: SODIUM CHLORIDE 0.9% 1,000 ML IV SCH (13:30)
== END 2019-08-26 14:42 | disposition short-term general hospital (02) | DRG 438 ==
LOC: EC 21:21 → 4SSUR 08-26 00:02
PROVIDERS: ADMIT Hospitalist; ATTEND Hospitalist
DX: K85.90 Acute pancreatitis without necrosis or infection, unspecified (principal); N17.0 Acute kidney failure with tubular necrosis; E87.2 Acidosis; J98.11 Atelectasis; R18.8 Other ascites; K86.3 Pseudocyst of pancreas; I12.9 Hypertensive chronic kidney disease with stage 1 through stage 4 chronic kidney disease, or unspecified chronic kidney disease; N18.3 Chronic kidney disease, stage 3 (moderate); Z87.891 Personal history of nicotine dependence; E87.5 Hyperkalemia; H91.93 Unspecified hearing loss, bilateral; K59.00 Constipation, unspecified; Z82.49 Family history of ischemic heart disease and other diseases of the circulatory system; Z90.49 Acquired absence of other specified parts of digestive tract; D72.828 Other elevated white blood cell count; Z86.010 Personal history of colon polyps; M25.512 Pain in left shoulder; M25.511 Pain in right shoulder; Z88.0 Allergy status to penicillin; G89.29 Other chronic pain; M54.9 Dorsalgia, unspecified
CPT/HCPCS: 36415; 71045; 71275; 74174; 80053; 80076; 82150; 83605; 83690; 83735; 83880; 84100; 84145; 84484; 85025; 85610; 85730; 86850; 86900; 86901; 86920; 87040; 93005; 96361; 96365; 96368; 96375; 96376; 99285

== ENCOUNTER 2019-10-12 08:44 | Inpatient (IN) | payer BC ==
[2019-10-12] MEDS ORDERED: ONDANSETRON 4 MG/2 ML VIAL IVP STA (09:05)
[2019-10-12] MEDS ORDERED: SODIUM CHLORIDE 0.9% 2,000 ML IV STA (09:05)
[2019-10-12] MEDS ORDERED: SODIUM CHLORIDE 0.9% 1,000 ML IV STA (09:05)
[2019-10-12] MEDS ORDERED: MORPHINE SULFATE 4 MG/ML SYRINGE IV STA (09:05)
--- NOTE | 2019-10-12 09:11 | ED ---
Abdominal Pain HPI - General Chief Complaint: Abdominal Pain Stated Complaint: abd pain Time Seen by Provider: 10/12/19 08:57 Source: patient, RN notes reviewed Mode of arrival: wheelchair Limitations: no limitations - History of Present Illness Initial Comments: This a 54-year-old male presents emergency Department chief complaint of nausea vomiting abdominal pain. Patient recently has had near 2 month stay in the hospital states is from one month in the hospital here for gallbladder pancreatic issues states that he was then transferred to [facility] for further treatment and evaluation. Patient states that it bile duct stent placed, he has been drinking with the abdomen and also states he had 2 stents placed to drain pancreatic pseudocyst. Patient states she was discharged approximately 10 days ago from [facility], he states he was doing well up until last night when he developed some nausea and which has been vomiting throughout the night into this morning she states it dark green in nature. Patient denies any change in bowel habits. Denies any known fever states that is not felt hot and cold. Patient also states when he was in the hospital he was diagnosed with PE, left arm DVT was placed on Eliquis. He has no complaints of chest pain, palpitations, shortness breath. - Related Data Home Medications Medication Instructions Recorded Confirmed HYDROcodone/APAP 5-325MG [[place] 1 tab PO Q6H PRN 08/25/19 08/25/19 5-325] Omeprazole 20 mg PO DAILY 08/25/19 08/25/19 Allergies Allergy/AdvReac Type Severity Reaction Status Date / Time amoxicillin Allergy Rash/Hives Verified 10/12/19 08:51 Review of Systems ROS Statement: Those systems with pertinent positive or pertinent negative responses have been documented in the HPI. ROS Other: All systems not noted in ROS Statement are negative. Past Medical History Past Medical History: Hearing Disorder / Deafness, Hypertension Additional Past Medical History / Comment(s): HAD A HEART MURMUR WHEN A CHILD- NEVER HEARD ANYTHING AFTER THAT ABOUT IT, SL. HEARLING LOSS YAMILA. EARS. Stents placed in stomach History of Any Multi-Drug Resistant Organisms: None Reported Past Surgical History: Cholecystectomy Additional Past Surgical History / Comment(s): Colonoscopy with benign polypectomy Past Anesthesia/Blood Transfusion Reactions: No Reported Reaction Past Psychological History: No Psychological Hx Reported Smoking Status: Former smoker Past Alcohol Use History: Occasional Past Drug Use History: None Reported - Past Family History Father Family Medical History: Coronary Artery Disease (CAD) Additional Family Medical History / Comment(s): Father had 4 vessel CABG Mother Family Medical History: Hypertension General Exam Limitations: no limitations General appearance: alert, other (Patient is diaphoretic) Head exam: Present: atraumatic, normocephalic, normal inspection Eye exam: Present: normal appearance, PERRL, EOMI. Absent: scleral icterus, conjunctival injection, periorbital swelling ENT exam: Present: mucous membranes dry, TM's normal bilaterally. Absent: normal oropharynx Neck exam: Present: normal inspection, full ROM. Absent: tenderness, meningismus, lymphadenopathy Respiratory exam: Present: normal lung sounds bilaterally. Absent: respiratory distress, wheezes, rales, rhonchi, stridor Cardiovascular Exam: Present: normal rhythm, tachycardia (Heart rate 140 on triage), normal heart sounds. Absent: systolic murmur, diastolic murmur, rubs, gallop, clicks GI/Abdominal exam: Present: soft, distended, tenderness, rigid (Primary on the right side), normal bowel sounds, other (There is a drain noted in the right lower abdomen, currently draining). Absent: guarding, rebound Back exam: Absent: CVA tenderness (R), CVA tenderness (L) Neurological exam: Present: alert, oriented X3, CN II-XII intact Skin exam: Present: warm, intact, normal color, diaphoretic. Absent: rash Course Vital Signs 10/12/19 10/12/19 10/12/19 08:46 09:38 10:00 Temperature 97.8 F Pulse Rate 140 H 113 H 112 H Respiratory 18 18 17 Rate Blood Pressure 139/95 O2 Sat by Pulse 97 97 97 Oximetry 10/12/19 10:30 Temperature Pulse Rate 111 H Respiratory 17 Rate Blood Pressure O2 Sat by Pulse 95 Oximetry Medical Decision Making - Medical Decision Making Case discussed with Dr. Rosales who will admit the patient with consults to medicine infectious disease. Patient was started on Levaquin, Flagyl, fluid hydration. Patient will have pain control and antiemetics at this time. - Lab Data Result diagrams: 10/12/19 09:30 10/12/19 09:30 Lab Results 10/12/19 10/12/19 10/12/19 Range/Units 09:30 09:30 09:30 WBC 8.5 (3.8-10.6) k/uL RBC 4.48 (4.30-5.90) m/uL Hgb 12.2 L (13.0-17.5) gm/dL Hct 39.3 (39.0-53.0) % MCV 87.6 D (80.0-100.0) fL MCH 27.1 (25.0-35.0) pg MCHC 31.0 (31.0-37.0) g/dL RDW 17.8 H (11.5-15.5) % Plt Count 515 H (150-450) k/uL Neutrophils % 82 % Lymphocytes % 13 % Monocytes % 4 % Eosinophils % 0 % Basophils % 1 % Neutrophils # 7.0 (1.3-7.7) k/uL Lymphocytes # 1.1 (1.0-4.8) k/uL Monocytes # 0.3 (0-1.0) k/uL Eosinophils # 0.0 (0-0.7) k/uL Basophils # 0.0 (0-0.2) k/uL Hypochromasia Slight Poikilocytosis Slight Anisocytosis Slight PT 11.1 (9.0-12.0) sec INR 1.1 (<1.2) APTT 23.0 (22.0-30.0) sec Sodium 138 (137-145) mmol/L Potassium 3.2 L (3.5-5.1) mmol/L Chloride 106 (98-107) mmol/L Carbon Dioxide 17 L (22-30) mmol/L Anion Gap 15 mmol/L BUN 12 (9-20) mg/dL Creatinine 0.64 L (0.66-1.25) mg/dL Est GFR (CKD-EPI)AfAm >90 (>60 ml/min/1.73 sqM) Est GFR (CKD-EPI)NonAf >90 (>60 ml/min/1.73 sqM) Glucose 116 H (74-99) mg/dL Plasma Lactic Acid Rusty (0.7-2.0) mmol/L Calcium 9.2 (8.4-10.2) mg/dL Magnesium 1.6 (1.6-2.3) mg/dL Total Bilirubin 0.5 (0.2-1.3) mg/dL AST 29 (17-59) U/L ALT 33 (4-49) U/L Alkaline Phosphatase 403 H (38-126) U/L Troponin I (0.000-0.034) ng/mL Total Protein 6.7 (6.3-8.2) g/dL Albumin 3.3 L (3.5-5.0) g/dL Amylase 32 (30-110) U/L Lipase 96 (23-300) U/L 10/12/19 10/12/19 Range/Units 09:30 09:30 WBC (3.8-10.6) k/uL RBC (4.30-5.90) m/uL Hgb (13.0-17.5) gm/dL Hct (39.0-53.0) % MCV (80.0-100.0) fL MCH (25.0-35.0) pg MCHC (31.0-37.0) g/dL RDW (11.5-15.5) % Plt Count (150-450) k/uL Neutrophils % % Lymphocytes % % Monocytes % % Eosinophils % % Basophils % % Neutrophils # (1.3-7.7) k/uL Lymphocytes # (1.0-4.8) k/uL Monocytes # (0-1.0) k/uL Eosinophils # (0-0.7) k/uL Basophils # (0-0.2) k/uL Hypochromasia Poikilocytosis Anisocytosis PT (9.0-12.0) sec INR (<1.2) APTT (22.0-30.0) sec Sodium (137-145) mmol/L Potassium (3.5-5.1) mmol/L Chloride (98-107) mmol/L Carbon Dioxide (22-30) mmol/L Anion Gap mmol/L BUN (9-20) mg/dL Creatinine (0.66-1.25) mg/dL Est GFR (CKD-EPI)AfAm (>60 ml/min/1.73 sqM) Est GFR (CKD-EPI)NonAf (>60 ml/min/1.73 sqM) Glucose (74-99) mg/dL Plasma Lactic Acid Rusty 1.0 (0.7-2.0) mmol/L Calcium (8.4-10.2) mg/dL Magnesium (1.6-2.3) mg/dL Total Bilirubin (0.2-1.3) mg/dL AST (17-59) U/L ALT (4-49) U/L Alkaline Phosphatase (38-126) U/L Troponin I <0.012 (0.000-0.034) ng/mL Total Protein (6.3-8.2) g/dL Albumin (3.5-5.0) g/dL Amylase (30-110) U/L Lipase (23-300) U/L Disposition Clinical Impression: Intra-abdominal abscess, Partial bowel obstruction, Nausea & vomiting, Abdominal pain Disposition: ADMITTED IP TO THIS HOSP Condition: Serious Referrals: Cj Malloy MD [Primary Care Provider] - 1-2 days
[2019-10-12 09:43] LABS: Anisocytosis Slight; Basophils % (A) 1 %; Eosinophils % (A) 0 %; HCT 39.3 % (39.0-53.0); HGB 12.2 gm/dL (13.0-17.5); Hypochromasia Slight; Lymphocytes # (A) 1.1 k/uL (1.0-4.8); Lymphocytes % (A) 13 %; MCH 27.1 pg (25.0-35.0); Mean Platelet Volume 6.8; Monocytes # (A) 0.3 k/uL (0-1.0); Monocytes % (A) 4 %; Neutrophils % (A) 82 %; Platelet Count 515 k/uL (150-450); Poikilocytosis Slight; RBC 4.48 m/uL (4.30-5.90); RDW 17.8 % (11.5-15.5); WBC 8.5 k/uL (3.8-10.6)
[2019-10-12 09:54] LABS: MCV 87.6 fL (80.0-100.0)
[2019-10-12 09:57] LABS: ALT 33 U/L (4-49); AST 29 U/L (17-59); African American GFR (CKD) >90 (>60 ml/min/1.73 sqM); Albumin 3.3 g/dL (3.5-5.0); Alkaline Phosphatase 403 U/L (38-126); Amylase 32 U/L (30-110); Anion Gap 15 mmol/L; Blood Urea Nitrogen 12 mg/dL (9-20); Calcium 9.2 mg/dL (8.4-10.2); Carbon Dioxide 17 mmol/L (22-30); Chloride 106 mmol/L (98-107); Glucose 116 mg/dL (74-99); Magnesium 1.6 mg/dL (1.6-2.3); Non-African American GFR(CKD) >90 (>60 ml/min/1.73 sqM); Potassium 3.2 mmol/L (3.5-5.1); Sodium 138 mmol/L (137-145); Total Bilirubin 0.5 mg/dL (0.2-1.3); Total Protein 6.7 g/dL (6.3-8.2)
[2019-10-12 10:01] LABS: INR 1.1 (<1.2); Prothrombin Time 11.1 sec (9.0-12.0)
--- NOTE | 2019-10-12 10:29 | CT ---
EXAMINATION TYPE: CT abdomen pelvis w con DATE OF EXAM: 10/12/2019 COMPARISON: CT aorta August 25, 2019 and older CTs HISTORY: Patient states he is just getting over pancreatitis. Generalized abdominal pain with low gra de fever. CT DLP: 1528.3 mGycm, Automated Exposure Control for Dose Reduction was Utilized. CONTRAST: CT scan of the abdomen and pelvis is performed without oral but with IV Contrast, patient injected wi th 100 mL of Isovue 300. FINDINGS: LUNG BASES: New small and tiny left pleural effusion. Persistent patchy bibasilar linear scarring and /or atelectasis. Subareolar bilateral gynecomastia redemonstrated. LIVER/GB: Persistent pneumobilia. Metallic CBD stent is now present and appears patent to the ampulla . No new biliary dilatation noted. PANCREAS: At the level level pancreatic bed there is marked interval improvement in the large fluid c ollection. There is new double-J drainage catheter from fluid collection into the stomach. Normal-debra earing pancreas or remnant not well seen SPLEEN: Trace perisplenic ascites currently. ADRENALS: No significant abnormality is seen. KIDNEYS: No significant abnormality is seen. BOWEL: Stomach shows no suspicious dilatation. Duodenal sweep is unremarkable. There is a fluid dilat ed small bowel loop posterior left lower quadrant up to 4.1 cm image 51. Fluid-filled structure anter ior to the dilated cecum is present contiguous with the pelvic fluid collection that has percutaneous pigtail drainage catheter. PROSTATE/SEMINAL VESICLES: No gross abnormality seen. LYMPH NODES: No greater than 1cm abdominal or pelvic lymph nodes are appreciated. OSSEOUS STRUCTURES: Mild multilevel disc space narrowing. And vacuum disc phenomenon lumbosacral junc tion. Mild to moderate spurring in the mid to lower thoracic spine. OTHER: There is also new percutaneous pigtail drainage catheter in the anterior pelvis. There is no m ore well-formed walled off fluid collection with foci of nondependent air. This appears to have a mor e tubular collection posterior-inferior aspect for reference axial image 77 and left anterior superio r level which cannot definitively traced to bowel loops but is suspicious as there are multiple adjac ent bowel loops present. There is a dilated cecum is predominantly air-filled extending into dilated and prominent transverse colon. There is fecal dilated and prominent left colon with abrupt transitio n into nondilated proximal sigmoid colon and rectum where there is [id number] diffuse wall thic kening. Terminal ileum. Collapsed breast medially coronal image 71. [id number]-[id number] diffuse soft tissue anasarca more prominent from prior. IMPRESSION: 1. Interval replacement of internal biliary plastic stent with metallic stent graft which appears pat ent. 2. Marked interval improvement in the large complex peripancreatic fluid collection with new double-J drainage catheter extending into the stomach. 3. Interval improvement in the amount of abdominal pelvic ascites after placement of percutaneous pig tail drainage catheter into the anterior upper pelvis. However residual fluid collection now has a ri m-enhancing wall and internal air raising concern for possible abscess development in the interval. T here is new lobulation and linear extension without definitive connection to bowel loops but fistulou s communication is difficult to exclude. 4. Dilated colon up to transition point at junction of left and sigmoid colon could reflect obstructi on related to adhesions. There is suggestion of mild to moderate sigmoid colitis with wall thickening . Correlate clinically. 5. Focal prominent fluid collection posterior left lower quadrant could reflect lobulated portion of the bowel walled off anterior pelvic fluid collection versus trapped dilated small bowel loop. Former is favored. 5. Mild to moderate diffuse soft tissue anasarca with new small to tiny left pleural effusion presume d related to desired fluid overload state.
[2019-10-12] MEDS ORDERED: LEVOFLOXACIN 750MG-D5W PMX 750 MG in DEXTROSE/WATER 1 150ML.BAG IVPB STA (10:34)
[2019-10-12] MEDS ORDERED: MORPHINE SULFATE 4 MG/ML SYRINGE IVP STA (10:42)
[2019-10-12] MEDS ORDERED: NALOXONE 0.4 MG/ML 1 ML VIAL IV PRN (10:53)
[2019-10-12] MEDS ORDERED: ONDANSETRON 4 MG/2 ML VIAL IVP PRN (10:53)
[2019-10-12] MEDS ORDERED: metroNIDAZOLE-NS PMX 500 MG in SALINE 1 100ML.BAG IVPB STA (10:55)
[2019-10-12 11:19] LABS: Appearance,Urine Clear (Clear); Bacteria,Urine Occasional /hpf; Bilirubin,Urine Negative (Negative); Blood,Urine Negative (Negative); Color,Urine Yellow; Glucose,Urine (UA) Negative (Negative); Ketones,Urine 1+ (Negative); Leukocyte Esterase,Urine Negative (Negative); Mucus,Urine Few /hpf; Nitrite,Urine Negative (Negative); Protein,Urine 1+ (Negative); RBC,Urine 24 /hpf (0-5); Specific Gravity,Urine >1.050 (1.001-1.035); Squamous Epithelial Cell,Urine <1 /hpf (0-4); Urobilinogen,Urine <2.0 mg/dL (<2.0); WBC,Urine 10 /hpf (0-5)
[2019-10-12] MEDS: HYDROmorphone 0.5 MG/0.5 ML SYRINGE IVP PRN (11:35)
[2019-10-12] MEDS: amLODIPine 5 MG TAB PO SCH (12:29)
[2019-10-12] MEDS: HYDROmorphone 1 MG/ML 1 ML SYRINGE IVP PRN ×3 (14:09→21:32)
--- NOTE | 2019-10-12 14:12 | P.GSHP ---
History of Present Illness H&P Date: 10/12/19 Chief Complaint: nausea vomiting CHIEF COMPLAINT: abdominal pain HISTORY OF PRESENT ILLNESS: 54 year old male who presented to the hospital with a chief complaint of abdominal pain. Patient is known to surgical services secondary to history of open cholecystectomy in August 2019. Patient developed a large pancreatic pseudocyst. Patient was transferred to [facility] for further evaluation of his pseudocyst. Patient states he had pseudocyst drained at [facility] and a pigtail drain inserted. He reports being diagnosed with a DVT in his arm at [facility] and was started on Eliquis. Patient examined in the ER with Dr. Rosales. He currently denies abdominal pain. No further vomiting. PAST MEDICAL HISTORY: See list. PAST SURGICAL HISTORY: See list. SOCIAL HISTORY: No illicit drug use. REVIEW OF SYSTEMS: CONSTITUTIONAL: Denies fever or chills. HEENT: Denies blurred vision, vision changes, or eye pain. Denies hemoptysis CARDIOVASCULAR: Denies chest pain or pressure. RESPIRATORY: No shortness of breath. GASTROINTESTINAL: Refer to [facility] for pertinent findings HEMATOLOGIC: Denies bleeding disorders. GENITOURINARY: Denies any blood in urine. SKIN: Denies pruitis. Denies rash. PHYSICAL EXAM: VITAL SIGNS: Reviewed. GENERAL: Well-developed in no acute distress. HEENT: No sclera icterus. Extraocular movements grossly intact. Moist buccal mucosa. Head is atraumatic, normocephalic. ABDOMEN: Soft. Nondistended. Minimal tenderness. Drainage catheter present with brown output. NEUROLOGIC: Alert and oriented. Cranial nerves II through XII grossly intact. LABORATORY DATA: WBC 8.5. Hemoglobin 12.2. Platelet count 515. Sodium 138. Potassium 3.2. BUN 12. Creatinine 0.64. Lactic acid 1.0. Bilirubin 0.5. AST 29. ALT 33. Alkaline phosphatase 403. IMAGING: CT abdomen and pelvis: Interval replacement of internal biliary plastic stent with metallic stent graft which appears patent. Marked interval improvement in the large complex. Pancreatic fluid collection with new double J drainage catheter extending into the stomach. Interval improvement in the amount of abdominal pelvic ascites after placement of the percutaneous pigtail drainage catheter into the upper pelvis. However residual fluid collection has a rim enhancing wall and internal air raising concern for possible abscess development in the interval. New lobulation and linear extension without definite connection to bowel loops but fistulous communication is difficult to exclude. Dilated colon up to transition point at junction of left and sigmoid colon could reflect obstruction related to adhesions. Suggestion of mild to moderate sigmoid colitis with wall thickening. Focal prominent fluid collection posterior left lower quadrant could reflect a lubulated portion of the bowel wall off anterior pelvic fluid collection versed drip dilated small bowel loop. [id number]-[id number] diffuse soft tissue anasarca with new small to tiny left pleural effusion presumed related to desired fluid overload state. ASSESSMENT: 1. Abdominal pain, nausea, vomiting 2. History of open cholecystectomy, August 2019 3. History of pancreatic pseudocyst 4. History of DVT, on anticoagulation with Eliquis PLAN: Dr. Hernandez consulted for antibiotic recommendations Dr. Lopez consulted for medical management Continue abdominal drainage catheter Full liquid diet Hold Eliquis. Begin Lovenox 100mg Q12 hours No surgical intervention recommended at this time. Will continue with conservative measures at this time. Nurse practitioner note has been reviewed by physician. Signing provider agrees with the documented findings, assessment, and plan of care. Past Medical History Past Medical History: Hearing Disorder / Deafness, Hypertension Additional Past Medical History / Comment(s): HAD A HEART MURMUR WHEN A CHILD- NEVER HEARD ANYTHING AFTER THAT ABOUT IT, SL. HEARLING LOSS YAMILA. EARS. Stents placed in stomach History of Any Multi-Drug Resistant Organisms: None Reported Past Surgical History: Cholecystectomy Additional Past Surgical History / Comment(s): Colonoscopy with benign polypectomy Past Anesthesia/Blood Transfusion Reactions: No Reported Reaction Past Psychological History: No Psychological Hx Reported Smoking Status: Former smoker Past Alcohol Use History: Occasional Past Drug Use History: None Reported - Past Family History Father Family Medical History: Coronary Artery Disease (CAD) Additional Family Medical History / Comment(s): Father had 4 vessel CABG Mother Family Medical History: Hypertension Medications and Allergies Home Medications Medication Instructions Recorded Confirmed Type HYDROcodone/APAP 5-325MG [[place] 1 tab PO QID PRN 08/25/19 10/12/19 History 5-325] Apixaban [Eliquis] 5 mg PO BID 10/12/19 10/12/19 History Isradipine 5 mg PO BID 10/12/19 10/12/19 History Allergies Allergy/AdvReac Type Severity Reaction Status Date / Time amoxicillin Allergy Rash/Hives Verified 10/12/19 11:03 Surgical - Exam Vital Signs Temp Pulse Resp BP Pulse Ox 97.8 F 140 H 18 139/95 97 10/12/19 08:46 10/12/19 08:46 10/12/19 08:46 10/12/19 08:46 10/12/19 08:46 Results - Labs 10/12/19 09:30 10/12/19 09:30 Abnormal Lab Results - Last 24 Hours (Table) 10/12/19 10/12/19 10/12/19 Range/Units 09:30 09:30 10:07 Hgb 12.2 L (13.0-17.5) gm/dL RDW 17.8 H (11.5-15.5) % Plt Count 515 H (150-450) k/uL Potassium 3.2 L (3.5-5.1) mmol/L Carbon Dioxide 17 L (22-30) mmol/L Creatinine 0.64 L (0.66-1.25) mg/dL Glucose 116 H (74-99) mg/dL Alkaline Phosphatase 403 H (38-126) U/L Albumin 3.3 L (3.5-5.0) g/dL Ur Specific [place] >1.050 H (1.001-1.035) Urine Protein 1+ H (Negative) Urine Ketones 1+ H (Negative) Urine RBC 24 H (0-5) /hpf Urine WBC 10 H (0-5) /hpf Urine Bacteria Occasional H (None) /hpf Urine Mucus Few H (None) /hpf Diabetes panel 10/12/19 Range/Units 09:30 Sodium 138 (137-145) mmol/L Potassium 3.2 L (3.5-5.1) mmol/L Chloride 106 (98-107) mmol/L Carbon Dioxide 17 L (22-30) mmol/L BUN 12 (9-20) mg/dL Creatinine 0.64 L (0.66-1.25) mg/dL Glucose 116 H (74-99) mg/dL Calcium 9.2 (8.4-10.2) mg/dL AST 29 (17-59) U/L ALT 33 (4-49) U/L Alkaline Phosphatase 403 H (38-126) U/L Total Protein 6.7 (6.3-8.2) g/dL Albumin 3.3 L (3.5-5.0) g/dL Calcium panel 10/12/19 Range/Units 09:30 Calcium 9.2 (8.4-10.2) mg/dL Albumin 3.3 L (3.5-5.0) g/dL Pituitary panel 10/12/19 Range/Units 09:30 Sodium 138 (137-145) mmol/L Potassium 3.2 L (3.5-5.1) mmol/L Chloride 106 (98-107) mmol/L Carbon Dioxide 17 L (22-30) mmol/L BUN 12 (9-20) mg/dL Creatinine 0.64 L (0.66-1.25) mg/dL Glucose 116 H (74-99) mg/dL Calcium 9.2 (8.4-10.2) mg/dL Adrenal panel 10/12/19 Range/Units 09:30 Sodium 138 (137-145) mmol/L Potassium 3.2 L (3.5-5.1) mmol/L Chloride 106 (98-107) mmol/L Carbon Dioxide 17 L (22-30) mmol/L BUN 12 (9-20) mg/dL Creatinine 0.64 L (0.66-1.25) mg/dL Glucose 116 H (74-99) mg/dL Calcium 9.2 (8.4-10.2) mg/dL Total Bilirubin 0.5 (0.2-1.3) mg/dL AST 29 (17-59) U/L ALT 33 (4-49) U/L Alkaline Phosphatase 403 H (38-126) U/L Total Protein 6.7 (6.3-8.2) g/dL Albumin 3.3 L (3.5-5.0) g/dL
[2019-10-12] MEDS: SODIUM CHLORIDE 0.9% 1,000 ML IV SCH (14:18)
[2019-10-12] MEDS: metroNIDAZOLE-NS PMX 500 MG in SALINE 1 100ML.BAG IVPB SCH ×2 (17:12→23:55)
[2019-10-12] MEDS: CEFEPIME 2 GM in SODIUM CHLORIDE 0.9% 100 ML IVPB SCH (20:10)
[2019-10-12] MEDS: ENOXAPARIN 100 MG/ML SYRINGE SQ SCH (20:11)
[2019-10-12] MEDS ORDERED: ACETAMINOPHEN TAB 500 MG TAB PO PRN (20:21)
[2019-10-13] MEDS: SODIUM CHLORIDE 0.9% 1,000 ML IV SCH ×3 (02:47→23:03)
[2019-10-13] MEDS: HYDROmorphone 1 MG/ML 1 ML SYRINGE IVP PRN ×5 (02:49→22:59)
[2019-10-13] MEDS: PANTOPRAZOLE 40 MG/10 ML VIAL IV SCH (08:58)
[2019-10-13] MEDS: ENOXAPARIN 100 MG/ML SYRINGE SQ SCH ×2 (08:59→22:15)
[2019-10-13] MEDS: amLODIPine 5 MG TAB PO SCH (08:59)
[2019-10-13] MEDS: metroNIDAZOLE-NS PMX 500 MG in SALINE 1 100ML.BAG IVPB SCH ×3 (09:00→22:59)
[2019-10-13] MEDS ORDERED: LEVOFLOXACIN 500MG-D5W PMX 500 MG in DEXTROSE/WATER 1 100ML.BAG IVPB SCH (09:00)
--- NOTE | 2019-10-13 09:27 | CONS ---
CONSULTATION DATE OF SERVICE: 10/12/2019 REASON FOR CONSULTATION: Abdominal abscess. HISTORY OF PRESENT ILLNESS: The patient is a 54-year-old male who recently did have a prolonged stay after the patient was noticed to have gallstone pancreatitis. The patient is status post open cholecystectomy in August 2019, subsequently developed nausea, pancreatic pseudocyst for which the patient was transferred to [facility]. The patient stated that he was at [facility] for almost a month. The patient did mention he did have a drainage of his pancreatic pseudocyst endoscopically. He is not sure what the culture results were and was discharged home about a week ago on oral antibiotics. Patient also diagnosed with a DVT in his arm for which is being treated with Eliquis. The patient is now presenting to the [facility] ER with history of abdominal pain, pain has been mostly in the abdominal area, described the pain to be sharp with some throbbing intensity about 6 to 7 out of 10 and no radiation. The patient has been nauseated and did have one episode of vomiting and one episode of diarrhea. With these symptoms, the patient was evaluated by the ER physician. On arrival to the ER, the patient has been afebrile. The patient did have a normal white count 8.5, creatinine 0.6. UA has been negative. The patient did have a CT abdomen and pelvis completed which did show interval improvement in amount of abdominal pelvic ascites and marked improvement in the large complex peripancreatic fluid collection with new double J drainage catheter extending into the stomach; however, there is focal prominent fluid collection posterior left lower quadrant could reflect lobulated portion of bowel and possible development of abdominal abscess. The patient has been admitted to the hospital again. He has been started on Levaquin and Flagyl. Infectious Disease was consulted for further recommendations regarding antibiotic therapy. REVIEW OF SYSTEMS: Positive points have been mentioned in HPI. Other systems are negative. PAST MEDICAL HISTORY: Hypertension, deafness. Patient did have gallstone pancreatitis and pancreatic pseudocyst. PAST SURGICAL HISTORY: Cholecystectomy, colonoscopy, polypectomy. SOCIAL HISTORY: Remote history of smoking. Occasionally drinks. No drug use. FAMILY HISTORY: Father history of coronary artery disease. Mother history of hypertension. ALLERGIES: Allergies to PENICILLIN. No history of anaphylaxis with previously tolerated cephalosporins without any problem. MEDICATIONS: Medications include the patient is currently on Tylenol, Norvasc, Lovenox, Dilaudid, Flagyl, Levaquin, Narcan, Zofran, Protonix. PHYSICAL EXAMINATION: Blood pressure is 131/89 with pulse of 120, temperature 98.2. He is 95% on room air. General description is a middle-aged male lying in bed in no distress. No tachypnea or accessory muscle for respiration use. HEENT: Examination shows slight pallor. No scleral icterus. Oral mucous membranes is dry. No pharyngeal erythema or thrush. NECK: Trachea central. No thyromegaly. LUNGS: Unlabored breathing, clear to auscultation anteriorly. No wheeze or crackles. HEART: S1, S2. Regular rate and rhythm. ABDOMEN: Soft, mildly tender. No guarding or rigidity. No organomegaly. EXTREMITIES: No edema of the feet. SKIN EXAMINATION: No rash or mass palpable. NEUROLOGIC: The patient is awake, alert, oriented x3. Mood and affect normal. LABS: Hemoglobin is 12.2, white count 8.5. BUN of 12, creatinine 0.64. Potassium 3.2. UA has been negative. CT report as mentioned above. DIAGNOSTIC IMPRESSION AND PLAN: 1. Patient admitted to the hospital with abdominal pain in this patient who recently did have a complicated stay with gallstone pancreatitis complicated by pancreatic pseudocyst requiring endoscopic drainage currently does have double J catheter from the pancreatic pseudocyst into the stomach with the new abdominal pain and question of fluid collection with a question of an abscess, possibly enteric in origin and need for gram-negative pathogen. 2. Patient with PENICILLIN allergy that limits the number of antibiotics safe to use. However, he has taken cephalosporins without any problem. PLAN: 1. CT will be reviewed with radiologist to see if this fluid could be drained CT- guided and sent for culture. 2. Continue the Flagyl. I will add cefepime 2 grams q.12 hours. Discontinue Levaquin. 3. I will follow up on clinical condition and culture to further adjust medication if needed. Thank you for this consultation. Will follow this patient along with you. MMODL / IJN: [id number] /
[2019-10-13] MEDS: CEFEPIME 2 GM in SODIUM CHLORIDE 0.9% 100 ML IVPB SCH ×2 (09:59→21:02)
--- NOTE | 2019-10-13 11:22 | P.PN ---
Subjective Progress Note Date: 10/13/19 CHIEF COMPLAINT: abdominal pain HISTORY OF PRESENT ILLNESS: Patient examined this morning at the bedside. He denies abdominal pain. Tolerating full liquid diet. Denies nausea or vomiting. Passing flatus. Reports bowel movement this morning. PHYSICAL EXAM: VITAL SIGNS: Reviewed. GENERAL: Well-developed in no acute distress. HEENT: No sclera icterus. Extraocular movements grossly intact. Moist buccal mucosa. Head is atraumatic, normocephalic. ABDOMEN: Soft. Nondistended. Nontender. Drainage catheter present with brown output. NEUROLOGIC: Alert and oriented. Cranial nerves II through XII grossly intact. ASSESSMENT: 1. Abdominal pain, nausea, vomiting 2. History of open cholecystectomy, August 2019 3. History of pancreatic pseudocyst 4. History of DVT, on anticoagulation with Eliquis PLAN: Dr. Hernandez on consult for antibiotic recommendations Dr. Lopez on consult for medical management Continue abdominal drainage catheter Advance diet Hold Eliquis. Continue Lovenox 100mg Q12 hours No surgical intervention recommended at this time. Will continue with conservative measures at this time. Repeat CT scan Wednesday Nurse practitioner note has been reviewed by physician. Signing provider agrees with the documented findings, assessment, and plan of care. Objective - Vital Signs Vital signs: Vital Signs Temp 98.1 F 10/13/19 07:41 Pulse 100 10/13/19 07:41 Resp 16 10/13/19 07:41 BP 121/83 10/13/19 07:41 Pulse Ox 100 10/13/19 07:41 Intake & Output 10/12/19 10/13/19 10/13/19 18:59 06:59 18:59 Intake Total 480 Output Total 150 Balance -150 480 Weight 99.79 kg Intake: Oral 480 Output: Drainage 150 Right Upper Abdomen 150 Other: Voiding Method Toilet # Voids 1 1 - Labs CBC & Chem 7: 10/12/19 09:30 10/12/19 09:30 Labs: Abnormal Lab Results - Last 24 Hours (Table) 10/12/19 Range/Units 10:07 Ur Specific [place] >1.050 H (1.001-1.035) Urine Protein 1+ H (Negative) Urine Ketones 1+ H (Negative) Urine RBC 24 H (0-5) /hpf Urine WBC 10 H (0-5) /hpf Urine Bacteria Occasional H (None) /hpf Urine Mucus Few H (None) /hpf
[2019-10-13] MEDS ORDERED: IOPAMIDOL CONTRAST (ORAL USE) VIAL PO PRN (13:22)
[2019-10-13 15:39] VITALS: BMI 29.8
--- NOTE | 2019-10-13 17:59 | P.CONS ---
History of Present Illness - Reason for Consult Consult date: 10/13/19 Medical management Requesting physician: Robin Rosales - Chief Complaint Abdominal discomfort - History of Present Illness History of presenting complaint: Natalie is a pleasant 54-year-old Patient of Dr. Malloy. Patient for about 2 years has had episodes of upper abdominal epigastric pain 07/11/2019-Admitted with-acute cholecystitis with choledocholithiasis, acute g allstone pancreatitis. patient clinically deteriorated and was transferred to the ICU on July 13. Patient intubated.went into renal failure. Started hemodialysis. Patient underwent open cholecystectomy with gallstone removal on 07/17/2019. extubated July 21. Patient had a biliary leak had a biliary stent placed on August 04. On August 06 had a computed tomography scan showing large pseudocyst. Repeat computed tomography scan of the abdomen was done - Showed enlarging pseudocyst. Gone from 20 cm the 24 cm. patient was transferred to [facility].Patient was there for about a month. Eventually the pseudocyst was drained and also has patient has a pigtail catheter in the abdomen. He also then developed a DVT in the right upper extremity is put on eliquis. Patient be ing home for about 10 days. Has been tolerating some diet. Having bowel movements. Not on any antibiotics. Able to walk around. Now presented with abdominal discomfort. Did vomit once. Admitted for the same. Computed tomography scan of the abdomen showed questionable colitis. Patient still has his abdominal drain. Pigtail. Patient has lost over 50 pounds since the initial presentation Review of systems: GEN.: Tired EYES: None HEENT: None NECK: None RESPIRATORY: None CARDIOVASCULAR: None GASTROINTESTINAL: [As above GENITOURINARY: None MUSCULOSKELETAL: None LYMPHATICS: None HEMATOLOGICAL: None PSYCHIATRY: None NEUROLOGICAL: None Social history: Previously Drinks about 12 pack over the weekend. 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 . Occasional cigars Physical examination: VITAL SIGNS: 98.1, 100, 16, blood pressure 121/83, 100% on room air GENERAL: BMI 29.8, sitting up in bed, awake EYES: Pupils equal. Conjunctiva normal. HEENT: External appearance of nose and ears normal, oral cavity grossly normal. NECK: JVD not raised; masses not palpable. HEART: First and second heart sounds are normal; no edema. LUNGS: Respiratory rate normal; clear to auscultation. ABDOMEN: Soft, mild abdominal tenderness, no guarding or rigidity, liver spleen not palpable, no masses palpable. Pigtail in place PSYCH: Alert and oriented x3; mood and affect normal. NEUROLOGICAL: Cranial nerves grossly intact; no facial asymmetry, power and sensation grossly intact. LYMPHATICS: No lymph nodes palpable in the axilla and neck INVESTIGATIONS, reviewed in the clinical context: White count 8.5 hemoglobin 12.2 potassium 3.2 creatinine 0.64 Computed tomography scan of the abdomen and pelvis-biliary metallic stent and graft, improvement of the large complex peripancreatic fluid collection with a new double-J drainage catheter extending into the stomach and pelvic ascites greatly improved questionable intra-abdominal abscess, dilated: After the transition point is junctional the left and sigmoid colon questionable sigmoid colitis some fluid collection in the left lower quadrant Assessment: -This is a patient with extensive medical surgical history in terms of last hospitalization. This included acute cholecystitis with choledocholithiasis, gallstone pancreatitis. Patient status post cholecystectomy with gallstone removal. Subsequently a large pseudocyst. That was drained. -Now presents with complex intra-abdominal findings including some ascites, possible abscess versus fluid collection, questionable bowel obstruction -Hypokalemia -Right upper extremity DVT Plan: Patient started and IV cefepime, Lovenox for DVT prophylaxis, IV Flagyl. IV fluids. Patient to resume eliquis is okay with Dr. Rosales. Blood pressures controlled. Hold off antihypertensive Thank you Dr. Rosales Past Medical History Past Medical History: Hearing Disorder / Deafness, Hypertension Additional Past Medical History / Comment(s): HAD A HEART MURMUR WHEN A CHILD- NEVER HEARD ANYTHING AFTER THAT ABOUT IT, SL. HEARLING LOSS YAMILA. EARS. Stents placed in stomach History of Any Multi-Drug Resistant Organisms: None Reported Past Surgical History: Cholecystectomy Additional Past Surgical History / Comment(s): Colonoscopy with benign polypectomy Past Anesthesia/Blood Transfusion Reactions: No Reported Reaction Past Psychological History: No Psychological Hx Reported Smoking Status: Former smoker Past Alcohol Use History: Occasional Past Drug Use History: None Reported - Past Family History Father Family Medical History: Coronary Artery Disease (CAD) Additional Family Medical History / Comment(s): Father had 4 vessel CABG Mother Family Medical History: Hypertension Medications and Allergies Home Medications Medication Instructions Recorded Confirmed Type HYDROcodone/APAP 5-325MG [Bird In Hand 1 tab PO QID PRN 08/25/19 10/12/19 History 5-325] Apixaban [Eliquis] 5 mg PO BID 10/12/19 10/12/19 History Isradipine 5 mg PO BID 10/12/19 10/12/19 History Allergies Allergy/AdvReac Type Severity Reaction Status Date / Time amoxicillin Allergy Rash/Hives Verified 10/12/19 11:03 Physical Exam Vitals: Vital Signs Temp Pulse Pulse Resp BP BP Pulse Ox 10/13/19 07:41 98.1 F 100 16 121/83 100 10/13/19 00:31 97.7 F 104 H 14 129/66 96 10/12/19 19:20 98.2 F 120 H 15 131/89 95 10/12/19 15:00 98.2 F 124 H 18 137/88 94 L 10/12/19 12:30 112 H 144/100 10/12/19 12:10 118 H 148/104 10/12/19 11:43 112 H 18 138/94 98 10/12/19 11:00 112 H 18 155/100 97 10/12/19 10:30 111 H 17 95 Intake and Output 10/12/19 10/13/19 10/13/19 22:59 06:59 14:59 Intake Total 480 Output Total 150 Balance -150 480 Intake: Oral 480 Output: Drainage 150 Right Upper Abdomen 150 Other: Voiding Method Toilet # Voids 1 1 Results CBC & Chem 7: 10/12/19 09:30 10/12/19 09:30 Labs: Abnormal Lab Results - Last 24 Hours (Table) 10/12/19 Range/Units 10:07 Ur Specific [place] >1.050 H (1.001-1.035) Urine Protein 1+ H (Negative) Urine Ketones 1+ H (Negative) Urine RBC 24 H (0-5) /hpf Urine WBC 10 H (0-5) /hpf Urine Bacteria Occasional H (None) /hpf Urine Mucus Few H (None) /hpf
--- NOTE | 2019-10-13 23:40 | PN ---
PROGRESS NOTE DATE OF SERVICE: 10/13/2019 REASON FOR FOLLOWUP: Abdominal abscess. INTERVAL HISTORY: The patient is currently afebrile. The patient's abdominal pain has decreased in intensity. The patient denies any chest pain, shortness of breath or cough. No nausea, vomiting. No diarrhea. PHYSICAL EXAMINATION: Blood pressure 135/84 with a pulse of 90, temperature 98.7. He is 93% on room air. General description is a middle-aged male lying in bed in no distress. Respiratory system: Unlabored breathing. Clear to auscultation anteriorly. Heart S1, S2. Regular rate and rhythm. ABDOMEN: Soft, no tenderness. Did have some purulent drainage. Did have some purulent drainage in his drainage catheter. Extremities: No edema of the feet. LABS: No new labs have been obtained today. DIAGNOSTIC IMPRESSION AND PLAN: Patient admitted to the hospital with abdominal pain in this patient who did have a recent complicated gallstone pancreatitis with pancreatic pseudocyst that was drained. Unfortunately, the patient was not sent home on any antibiotic on discharge and now is presenting to the hospital with worsening abdominal pain and possible symptoms of abscess. The patient did have a drainage catheter in the collection and sent for further drainage. However, we will try to obtain cultures if they were done at [facility]. In the meantime, the patient clinically responding to cefepime. Flagyl to continue. We will check with a.m. labs and continue supportive care. BEAU / RKN: [id number] /
[2019-10-14] MEDS: HYDROmorphone 1 MG/ML 1 ML SYRINGE IVP PRN ×5 (03:53→23:11)
[2019-10-14 07:56] LABS: African American GFR (CKD) >90 (>60 ml/min/1.73 sqM); Anion Gap 8 mmol/L; Blood Urea Nitrogen 7 mg/dL (9-20); Calcium 7.9 mg/dL (8.4-10.2); Carbon Dioxide 21 mmol/L (22-30); Chloride 108 mmol/L (98-107); Glucose 95 mg/dL (74-99); Non-African American GFR(CKD) >90 (>60 ml/min/1.73 sqM); Potassium 3.3 mmol/L (3.5-5.1); Sodium 137 mmol/L (137-145)
[2019-10-14] MEDS: PANTOPRAZOLE 40 MG/10 ML VIAL IV SCH (08:12)
[2019-10-14] MEDS: amLODIPine 5 MG TAB PO SCH (08:12)
[2019-10-14] MEDS: CEFEPIME 2 GM in SODIUM CHLORIDE 0.9% 100 ML IVPB SCH ×2 (08:12→21:29)
[2019-10-14] MEDS: ENOXAPARIN 100 MG/ML SYRINGE SQ SCH ×2 (08:21→21:29)
[2019-10-14 08:26] LABS: Anisocytosis Slight; Basophils % (A) 1 %; Eosinophils # (A) 0.3 k/uL (0-0.7); Eosinophils % (A) 7 %; HCT 30.7 % (39.0-53.0); Hypochromasia Moderate; Lymphocytes % (A) 25 %; MCH 27.3 pg (25.0-35.0); MCHC 30.9 g/dL (31.0-37.0); MCV 88.3 fL (80.0-100.0); Mean Platelet Volume 6.9; Monocytes # (A) 0.3 k/uL (0-1.0); Monocytes % (A) 9 %; Neutrophils # (A) 2.2 k/uL (1.3-7.7); Neutrophils % (A) 57 %; Platelet Count 321 k/uL (150-450); RBC 3.48 m/uL (4.30-5.90); RDW 17.3 % (11.5-15.5); WBC 3.8 k/uL (3.8-10.6)
[2019-10-14 08:30] LABS: HGB 9.5 gm/dL (13.0-17.5)
[2019-10-14] MEDS: metroNIDAZOLE-NS PMX 500 MG in SALINE 1 100ML.BAG IVPB SCH ×3 (08:51→23:12)
[2019-10-14 12:11] LABS: Erythrocyte Sedimentation Rate 23 mm/hr (0-15)
--- NOTE | 2019-10-14 14:30 | PN ---
PROGRESS NOTE CHIEF COMPLAINT: Gallstone pancreatitis with pseudocyst. SUBJECTIVE: Akbmw[age][id number]-njxe-old male with indwelling drainage catheter originally placed at [facility]. He says his pain is much improved. Drain output improving. T-max 99.4. White blood cell count 3.8. He is tolerating a regular diet. OBJECTIVE: ABDOMEN: Soft, nondistended. Drain in place. IMPRESSION: Uzdqq-dlrmy-ikul-old male with pancreatic pseudocyst. PLAN: 1. Continue IV antibiotics. 2. Await CT scan scheduled for Wednesday. 3. Continue regular diet. MMODL / IJN: [id number] /
[2019-10-14] MEDS ORDERED: Potassium Replacement Protocol 1 EACH MISC MISCELLANE PRN (15:34)
[2019-10-14] MEDS: POTASSIUM CHLORIDE ER 20 MEQ TAB.ER PO SCH ×2 (15:40→16:54)
--- NOTE | 2019-10-14 18:06 | PN ---
PROGRESS NOTE DATE OF SERVICE: 10/14/2019. REASON FOR FOLLOW UP: Abdominal abscess. INTERVAL HISTORY: The patient is currently afebrile, has been breathing comfortably. The patient's abdominal pain has improved. Denies any chest pain or any cough. Still has some purulent drainage from his drainage catheter, about 100 mL per day. No diarrhea. PHYSICAL EXAMINATION: Blood pressure 134/83 with a pulse of 94, temperature 98.2. He is 92% on room air. General description is a middle-aged male up in the chair in no distress. Respiratory system: Unlabored breathing. Clear to auscultation anteriorly. Heart S1, S2. Regular rate and rhythm. Abdomen soft, no tenderness. LABS: Hemoglobin 9.5, white count 3.8, creatinine 0.66. Blood culture has been negative. DIAGNOSTIC IMPRESSION AND PLAN: Patient with abdominal abscess in this patient who did have recent complicated history with pancreatic pseudocyst that has been drained and abdominal abscess that has been drained. We will try to obtain the culture from [facility]. In the meantime, continue the patient on the IV cefazolin, Flagyl. Repeat CT on Wednesday, possible IV antibiotic on discharge. Continue supportive care. MMODL / IJN: [id number] /
[2019-10-14 19:27] LABS: African American GFR (CKD) >90 (>60 ml/min/1.73 sqM); Anion Gap 7 mmol/L; Blood Urea Nitrogen 7 mg/dL (9-20); Calcium 8.3 mg/dL (8.4-10.2); Carbon Dioxide 22 mmol/L (22-30); Chloride 107 mmol/L (98-107); Glucose 109 mg/dL (74-99); Non-African American GFR(CKD) >90 (>60 ml/min/1.73 sqM); Sodium 136 mmol/L (137-145)
[2019-10-14] MEDS: SODIUM CHLORIDE 0.9% 1,000 ML IV SCH (22:27)
[2019-10-15] MEDS: HYDROmorphone 1 MG/ML 1 ML SYRINGE IVP PRN ×4 (05:43→20:48)
[2019-10-15 06:56] LABS: African American GFR (CKD) >90 (>60 ml/min/1.73 sqM); Anion Gap 7 mmol/L; Blood Urea Nitrogen 5 mg/dL (9-20); Calcium 8.1 mg/dL (8.4-10.2); Carbon Dioxide 20 mmol/L (22-30); Chloride 110 mmol/L (98-107); Glucose 95 mg/dL (74-99); Non-African American GFR(CKD) >90 (>60 ml/min/1.73 sqM); Potassium 3.6 mmol/L (3.5-5.1); Sodium 137 mmol/L (137-145)
[2019-10-15 06:58] LABS: Anisocytosis Slight; Basophils % (A) 1 %; Eosinophils # (A) 0.2 k/uL (0-0.7); Eosinophils % (A) 6 %; HCT 31.3 % (39.0-53.0); HGB 9.6 gm/dL (13.0-17.5); Hypochromasia Moderate; Lymphocytes # (A) 1.3 k/uL (1.0-4.8); Lymphocytes % (A) 31 %; MCH 27.1 pg (25.0-35.0); MCHC 30.7 g/dL (31.0-37.0); MCV 88.3 fL (80.0-100.0); Mean Platelet Volume 6.9; Monocytes # (A) 0.3 k/uL (0-1.0); Monocytes % (A) 7 %; Neutrophils # (A) 2.2 k/uL (1.3-7.7); Neutrophils % (A) 53 %; Platelet Count 372 k/uL (150-450); RBC 3.54 m/uL (4.30-5.90); RDW 17.2 % (11.5-15.5); WBC 4.1 k/uL (3.8-10.6)
[2019-10-15] MEDS: metroNIDAZOLE-NS PMX 500 MG in SALINE 1 100ML.BAG IVPB SCH ×2 (07:50→16:28)
[2019-10-15] MEDS: amLODIPine 5 MG TAB PO SCH (08:35)
[2019-10-15] MEDS: ENOXAPARIN 100 MG/ML SYRINGE SQ SCH ×2 (08:35→20:47)
[2019-10-15] MEDS: PANTOPRAZOLE 40 MG/10 ML VIAL IV SCH (08:35)
[2019-10-15] MEDS: CEFEPIME 2 GM in SODIUM CHLORIDE 0.9% 100 ML IVPB SCH ×2 (08:55→20:48)
[2019-10-15] MEDS: SODIUM CHLORIDE 0.9% 1,000 ML IV SCH (08:58)
--- NOTE | 2019-10-15 10:35 | P.PN ---
Subjective Progress Note Date: 10/15/19 Principal diagnosis: Abdominal abscess Patient feels well today. Denies pain. White blood cell count normal at 4.1. Hemoglobin 9.6. T-max 99.1. Drain output approximately 50 mL purulent. Objective - Vital Signs Vital signs: Vital Signs Temp 98.6 F 10/15/19 07:55 Pulse 93 10/15/19 07:55 Resp 18 10/15/19 07:55 BP 130/84 10/15/19 07:55 Pulse Ox 97 10/15/19 07:55 Intake & Output 10/14/19 10/15/19 10/15/19 18:59 06:59 18:59 Intake Total 800 1170 Balance 800 1170 Intake: IV 800 100 Cefepime 2 gm In Sodium 100 100 Chloride 0.9% 100 ml @ 200 mls/hr IVPB Q12HR [facility] Rx#:[id number] Sodium Chloride 0.9% 1, 600 000 ml @ 75 mls/hr IV . [id number] [facility] Rx#:[id number] metroNIDAZOLE-NS PMX 500 100 mg In Saline 1 100ml.bag @ 100 mls/hr IVPB Q8HR [facility] Rx#:[id number] Oral 1070 Other: Voiding Method Toilet # Voids 2 2 - Exam Abdomen: Soft, nondistended, minimal tenderness, drain intact - Labs CBC & Chem 7: 10/15/19 05:48 10/15/19 05:48 Labs: Abnormal Lab Results - Last 24 Hours (Table) 10/14/19 10/14/19 10/15/19 Range/Units 06:27 19:01 05:48 RBC 3.54 L (4.30-5.90) m/uL Hgb 9.6 L (13.0-17.5) gm/dL Hct 31.3 L (39.0-53.0) % MCHC 30.7 L (31.0-37.0) g/dL RDW 17.2 H (11.5-15.5) % ESR 23 H (0-15) mm/hr Sodium 136 L (137-145) mmol/L Chloride (98-107) mmol/L Carbon Dioxide (22-30) mmol/L BUN 7 L (9-20) mg/dL Creatinine 0.63 L (0.66-1.25) mg/dL Glucose 109 H (74-99) mg/dL Calcium 8.3 L (8.4-10.2) mg/dL 10/15/19 Range/Units 05:48 RBC (4.30-5.90) m/uL Hgb (13.0-17.5) gm/dL Hct (39.0-53.0) % MCHC (31.0-37.0) g/dL RDW (11.5-15.5) % ESR (0-15) mm/hr Sodium (137-145) mmol/L Chloride 110 H (98-107) mmol/L Carbon Dioxide 20 L (22-30) mmol/L BUN 5 L (9-20) mg/dL Creatinine 0.60 L (0.66-1.25) mg/dL Glucose (74-99) mg/dL Calcium 8.1 L (8.4-10.2) mg/dL Microbiology - Last 24 Hours (Table) 10/12/19 09:30 Blood Culture - Preliminary Blood No Growth after 48 hours Assessment and Plan Plan: Continue IV antibiotics. Continue diet as tolerated. Computed tomography scan ordered for tomorrow. Await those findings.
[2019-10-15] MEDS ORDERED: POTASSIUM CHLORIDE ER 20 MEQ TAB.ER PO ONE (21:00)
[2019-10-16] MEDS: HYDROmorphone 1 MG/ML 1 ML SYRINGE IVP PRN ×6 (00:01→16:23)
--- NOTE | 2019-10-16 00:25 | P.PN ---
Subjective Progress Note Date: 10/14/19 Principal diagnosis: Abdominal pain with nausea and vomiting Natalie is a pleasant 54-year-old Patient of Dr. Malloy. Patient for about 2 years has had episodes of upper abdominal epigastric pain 07/11/2019-Admitted with-acute cholecystitis with choledocholithiasis, acute gallstone pancreatitis. patient clinically deteriorated and was transferred to the ICU on July 13. Patient intubated.went into renal failure. Started hemodialysis. Patient underwent open cholecystectomy with gallstone removal on 07/17/2019. extubated July 21. Patient had a biliary leak had a biliary stent placed on August 04. On August 06 had a computed tomography scan showing large pseudocyst. Repeat computed tomography scan of the abdomen was done - Showed enlarging pseudocyst. Gone from 20 cm the 24 cm. patient was transferred to [facility].Patient was there for about a month. Eventually the pseudocyst was drained and also has patient has a pigtail catheter in the abdomen. He also then developed a DVT in the right upper extremity is put on eliquis. Patient being home for about 10 days. Has been tolerating some diet. Having bowel movements. Not on any antibiotics. Able to walk around. Now presented with abdominal discomfort. Did vomit once. Admitted for the same. Computed tomography scan of the abdomen showed questionable colitis. Patient still has his abdominal drain. Pigtail. Patient has lost over 50 pounds since the initial presentation INVESTIGATIONS, reviewed in the clinical context: White count 8.5 hemoglobin 12.2 potassium 3.2 creatinine 0.64 Computed tomography scan of the abdomen and pelvis-biliary metallic stent and graft, improvement of the large complex peripancreatic fluid collection with a new double-J drainage catheter extending into the stomach and pelvic ascites greatly improved questionable intra-abdominal abscess, dilated: After the transition point is junctional the left and sigmoid colon questionable sigmoid colitis some fluid collection in the left lower quadrant 10/14/2019 Patient denied any complaints of abdominal pain. Tolerating oral diet. No nausea vomiting. Continued on antibiotics in the form of cefepime. ID is on board. Patient has been afebrile. Hemoglobin 9.5 today. No leukocytosis. current medications reviewed. Objective - Vital Signs Vital signs: Vital Signs Temp 98.2 F 10/14/19 08:09 Pulse 94 10/14/19 08:09 Resp 16 10/14/19 08:09 BP 134/83 10/14/19 08:09 Pulse Ox 96 10/14/19 08:09 Intake & Output 10/13/19 10/14/19 10/14/19 18:59 06:59 18:59 Intake Total 800 480 800 Output Total 300 Balance 800 180 800 Weight 95.5 kg Intake: IV 800 800 Cefepime 2 gm In Sodium 100 100 Chloride 0.9% 100 ml @ 200 mls/hr IVPB Q12HR [facility] Rx#:[id number] Sodium Chloride 0.9% 1, 600 600 000 ml @ 75 mls/hr IV . [id number] [facility] Rx#:[id number] metroNIDAZOLE-NS PMX 500 100 100 mg In Saline 1 100ml.bag @ 100 mls/hr IVPB Q8HR [facility] Rx#:[id number] Oral 480 Output: Drainage 100 Right Upper Abdomen 100 Urine 200 Other: Voiding Method Toilet Toilet # Voids 1 2 - Exam GENERAL: BMI 29.8, sitting up in bed, awake EYES: Pupils equal. Conjunctiva normal. HEENT: External appearance of nose and ears normal, oral cavity grossly normal. NECK: JVD not raised; masses not palpable. HEART: First and second heart sounds are normal; no edema. LUNGS: Respiratory rate normal; clear to auscultation. ABDOMEN: Soft, mild abdominal tenderness, no guarding or rigidity, liver spleen not palpable, no masses palpable. Pigtail in place PSYCH: Alert and oriented x3; mood and affect normal. NEUROLOGICAL: Cranial nerves grossly intact; no facial asymmetry, power and sensation grossly intact. LYMPHATICS: No lymph nodes palpable in the axilla and neck - Labs CBC & Chem 7: 10/15/19 05:48 10/15/19 05:48 Labs: Abnormal Lab Results - Last 24 Hours (Table) 10/14/19 10/14/19 Range/Units 06:27 06:27 RBC 3.48 L (4.30-5.90) m/uL Hgb 9.5 L D (13.0-17.5) gm/dL Hct 30.7 L (39.0-53.0) % MCHC 30.9 L (31.0-37.0) g/dL RDW 17.3 H (11.5-15.5) % ESR 23 H (0-15) mm/hr Potassium 3.3 L (3.5-5.1) mmol/L Chloride 108 H (98-107) mmol/L Carbon Dioxide 21 L (22-30) mmol/L BUN 7 L (9-20) mg/dL Calcium 7.9 L (8.4-10.2) mg/dL Microbiology - Last 24 Hours (Table) 10/12/19 09:30 Blood Culture - Preliminary Blood No Growth after 48 hours Assessment and Plan Assessment: Assessment: -This is a patient with extensive medical surgical history in terms of last hospitalization. This included acute cholecystitis with choledocholithiasis, gallstone pancreatitis. Patient status post cholecystectomy with gallstone removal. Subsequently a large pseudocyst. That was drained. -Now presents with complex intra-abdominal findings including some ascites, possible abscess versus fluid collection vs abscess, questionable bowel o bstruction -Hypokalemia -Right upper extremity DVT Plan: Patient started and IV cefepime, Lovenox for DVT prophylaxis, IV Flagyl. IV fluids. Patient is on therapeutic Lovenox subcu due to right upper extremity DVT. Blood pressures controlled. Hold off antihypertensive. Continue to follow closely. Time with Patient: Greater than 30
--- NOTE | 2019-10-16 00:25 | P.PN ---
Subjective Progress Note Date: 10/15/19 Principal diagnosis: Abdominal pain with nausea and vomiting Natalie is a pleasant 54-year-old Patient of Dr. Malloy. Patient for about 2 years has had episodes of upper abdominal epigastric pain 07/11/2019-Admitted with-acute cholecystitis with choledocholithiasis, acute gallstone pancreatitis. patient clinically deteriorated and was transferred to the ICU on July 13. Patient intubated.went into renal failure. Started hemodialysis. Patient underwent open cholecystectomy with gallstone removal on 07/17/2019. extubated July 21. Patient had a biliary leak had a biliary stent placed on August 04. On August 06 had a computed tomography scan showing large pseudocyst. Repeat computed tomography scan of the abdomen was done - Showed enlarging pseudocyst. Gone from 20 cm the 24 cm. patient was transferred to [facility].Patient was there for about a month. Eventually the pseudocyst was drained and also has patient has a pigtail catheter in the abdomen. He also then developed a DVT in the right upper extremity is put on eliquis. Patient being home for about 10 days. Has been tolerating some diet. Having bowel movements. Not on any antibiotics. Able to walk around. Now presented with abdominal discomfort. Did vomit once. Admitted for the same. Computed tomography scan of the abdomen showed questionable colitis. Patient still has his abdominal drain. Pigtail. Patient has lost over 50 pounds since the initial presentation INVESTIGATIONS, reviewed in the clinical context: White count 8.5 hemoglobin 12.2 potassium 3.2 creatinine 0.64 Computed tomography scan of the abdomen and pelvis-biliary metallic stent and graft, improvement of the large complex peripancreatic fluid collection with a new double-J drainage catheter extending into the stomach and pelvic ascites greatly improved questionable intra-abdominal abscess, dilated: After the transition point is junctional the left and sigmoid colon questionable sigmoid colitis some fluid collection in the left lower quadrant 10/14/2019 Patient denied any complaints of abdominal pain. Tolerating oral diet. No nausea vomiting. Continued on antibiotics in the form of cefepime. ID is on board. Patient has been afebrile. Hemoglobin 9.5 today. No leukocytosis. 10/15/2019 Patient denied any complaints of chest pain or shortness of breath. No complex of abdominal pain. Patient did have bowel movement. Repeat CT abdomen and pelvis tomorrow. Continue with current antibiotics. current medications reviewed. Objective - Vital Signs Vital signs: Vital Signs Temp 98.1 F 10/15/19 15:00 Pulse 101 H 10/15/19 15:00 Resp 17 10/15/19 15:00 BP 134/90 10/15/19 15:00 Pulse Ox 98 10/15/19 15:00 Intake & Output 10/15/19 10/15/19 10/16/19 06:59 18:59 06:59 Intake Total 1170 200 Balance 1170 200 Intake: IV 100 Cefepime 2 gm In Sodium 100 Chloride 0.9% 100 ml @ 200 mls/hr IVPB Q12HR [facility] Rx#:[id number] Intake, IV Titration 200 Amount Cefepime 2 gm In Sodium 100 Chloride 0.9% 100 ml @ 200 mls/hr IVPB Q12HR [facility] Rx#:[id number] metroNIDAZOLE-NS PMX 500 100 mg In Saline 1 100ml.bag @ 100 mls/hr IVPB Q8HR [facility] Rx#:[id number] Oral 1070 Other: # Voids 2 - Exam GENERAL: BMI 29.8, sitting up in bed, awake EYES: Pupils equal. Conjunctiva normal. HEENT: External appearance of nose and ears normal, oral cavity grossly normal. NECK: JVD not raised; masses not palpable. HEART: First and second heart sounds are normal; no edema. LUNGS: Respiratory rate normal; clear to auscultation. ABDOMEN: Soft, mild abdominal tenderness, no guarding or rigidity, liver spleen not palpable, no masses palpable. Pigtail in place PSYCH: Alert and oriented x3; mood and affect normal. NEUROLOGICAL: Cranial nerves grossly intact; no facial asymmetry, power and sensation grossly intact. LYMPHATICS: No lymph nodes palpable in the axilla and neck - Labs CBC & Chem 7: 10/15/19 05:48 10/15/19 05:48 Labs: Abnormal Lab Results - Last 24 Hours (Table) 10/15/19 10/15/19 Range/Units 05:48 05:48 RBC 3.54 L (4.30-5.90) m/uL Hgb 9.6 L (13.0-17.5) gm/dL Hct 31.3 L (39.0-53.0) % MCHC 30.7 L (31.0-37.0) g/dL RDW 17.2 H (11.5-15.5) % Chloride 110 H (98-107) mmol/L Carbon Dioxide 20 L (22-30) mmol/L BUN 5 L (9-20) mg/dL Creatinine 0.60 L (0.66-1.25) mg/dL Calcium 8.1 L (8.4-10.2) mg/dL Microbiology - Last 24 Hours (Table) 10/12/19 09:30 Blood Culture - Preliminary Blood No Growth after 72 hours Assessment and Plan Assessment: Assessment: -This is a patient with extensive medical surgical history in terms of last hospitalization. This included acute cholecystitis with choledocholithiasis, gallstone pancreatitis. Patient status post cholecystectomy with gallstone removal. Subsequently a large pseudocyst. That was drained. -Now presents with complex intra-abdominal findings including some ascites, possible abscess versus fluid collection vs abscess, questionable bowel obstruction -Hypokalemia -Right upper extremity DVT Plan: Patient started and IV cefepime, Lovenox for DVT prophylaxis, IV Flagyl. IV fluids. Patient is on therapeutic Lovenox subcu due to right upper extremity DVT. Blood pressures controlled. Hold off antihypertensive. Continue to follow closely. Time with Patient: Greater than 30
[2019-10-16] MEDS: SODIUM CHLORIDE 0.9% 1,000 ML IV SCH ×2 (04:11→11:40)
[2019-10-16] MEDS: metroNIDAZOLE-NS PMX 500 MG in SALINE 1 100ML.BAG IVPB SCH ×2 (07:18)
[2019-10-16] MEDS: PANTOPRAZOLE 40 MG/10 ML VIAL IV SCH (07:18)
[2019-10-16] MEDS: CEFEPIME 2 GM in SODIUM CHLORIDE 0.9% 100 ML IVPB SCH ×2 (07:18→20:11)
[2019-10-16] MEDS: ENOXAPARIN 100 MG/ML SYRINGE SQ SCH ×2 (07:18→20:11)
[2019-10-16] MEDS: amLODIPine 5 MG TAB PO SCH (07:18)
[2019-10-16] MEDS: IOPAMIDOL CONTRAST (ORAL USE) VIAL PO PRN ×2 (08:04→08:59)
[2019-10-16 08:20] LABS: Anisocytosis Slight; Basophils % (A) 1 %; Eosinophils # (A) 0.2 k/uL (0-0.7); Eosinophils % (A) 4 %; HCT 32.4 % (39.0-53.0); Hypochromasia Marked; Lymphocytes # (A) 1.2 k/uL (1.0-4.8); Lymphocytes % (A) 22 %; MCH 27.3 pg (25.0-35.0); MCHC 30.8 g/dL (31.0-37.0); MCV 88.8 fL (80.0-100.0); Mean Platelet Volume 7.1; Monocytes # (A) 0.3 k/uL (0-1.0); Monocytes % (A) 6 %; Neutrophils # (A) 3.7 k/uL (1.3-7.7); Neutrophils % (A) 66 %; Platelet Count 418 k/uL (150-450); Poikilocytosis Slight; RBC 3.65 m/uL (4.30-5.90); RDW 17.1 % (11.5-15.5); WBC 5.7 k/uL (3.8-10.6)
[2019-10-16 08:36] LABS: African American GFR (CKD) >90 (>60 ml/min/1.73 sqM); Anion Gap 5 mmol/L; Blood Urea Nitrogen 3 mg/dL (9-20); Carbon Dioxide 21 mmol/L (22-30); Chloride 111 mmol/L (98-107); Glucose 95 mg/dL (74-99); Non-African American GFR(CKD) >90 (>60 ml/min/1.73 sqM); Potassium 3.3 mmol/L (3.5-5.1); Sodium 137 mmol/L (137-145)
[2019-10-16 08:58] LABS: C Reactive Protein 5.3 mg/L (<10.0)
--- NOTE | 2019-10-16 09:25 | PN ---
PROGRESS NOTE DATE OF SERVICE: 10/15/2019 REASON FOR FOLLOWUP: Abdominal abscess. INTERVAL HISTORY: The patient is currently afebrile. He has been breathing comfortably. The patient's abdominal pain has improved. Denies having any chest pain, shortness of breath. No cough. Still having output from his drainage catheter. PHYSICAL EXAMINATION: Blood pressure 134/90 with a pulse of 100, temperature 98.1, he is 98% on room air. General description is a middle-aged male, lying in bed in no distress. RESPIRATORY SYSTEM: Unlabored breathing, clear to auscultation anteriorly. HEART: S1, S2. Regular rate and rhythm. ABDOMEN: Soft, no tenderness. LABS: BUN of 5, creatinine is 0.60. White count 4.11. Blood culture has been negative. DIAGNOSTIC IMPRESSION AND PLAN: Patient with abdominal sepsis in this patient did have recent complicated history with gallstone pancreatitis and status post cholecystectomy with pancreatic pseudocyst requiring drainage and abdominal abscess. We still waiting for [facility] to get the culture report. Awaiting repeat CT. Abdominal pain and this patient did have overall improvement in his abscess. May need to continue with cefepime and oral Flagyl in the outpatient setting and and continue supportive care. MMODL / IJN: [id number] /
--- NOTE | 2019-10-16 10:29 | CT ---
EXAMINATION TYPE: CT abdomen pelvis w con DATE OF EXAM: 10/16/2019 COMPARISON: 10/12/2019 HISTORY: Abscess CT DLP: 1620.8 mGycm Automated exposure control for dose reduction was used. CONTRAST: CT scan of the abdomen pelvis is performed with IV Contrast, patient injected with 100 mL of Isovue 3 00. FINDINGS- LUNG BASES-bilateral consolidation and small left pleural effusion.. LIVER/GB-there is extensive pneumobilia with a suspected biliary stent in position.. The liver appear s enlarged measuring 25 cm and low in attenuation correlate for hepatocellular disease or hepatic florentino atosis. PANCREAS-there appears to be a drainage catheter extending from the stomach into the pancreatic tail region. Just vague low-attenuation throughout the peripancreatic level. Soft tissue fullness in the r egion of the uncinate processes noted. This is similar to the prior exam appears to be of solid atten uation. Air within the pancreatic duct or peripancreatic bed noted. The attenuation of the peripancre atic bed measures 16 Hounsfield units and may represent some residual fluid attenuation. SPLEEN- No gross abnormality is seen. ADRENALS- No gross abnormality is seen. KIDNEYS/BLADDER-2 mm nonobstructing right renal calculus noted. BOWEL-there is a small amount of ascites. Mild wall the left colon.. LYMPH NODES- No greater than 1cm abdominal or pelvic lymph nodes areappreciated. OSSEOUS STRUCTURES-degenerative change of the spine.. OTHER- there is a drainage catheter within the pelvis with a fluid collection measuring 13 x 4 cm si milar to the prior exam. No significant interval change noted. Catheter appears in good position. Por tions of the fluid collection extending along the right abdomen superiorly appears contiguous with th e pelvic calcification. Suspect an additional left upper quadrant fluid collection collection measuring 5.1 x 4 cm stable fro m the prior exam and is surrounded by bowel. Subcutaneous emphysema noted which may be post therapeutic. Correlate clinically. Soft tissue edema n oted correlate for anasarca. IMPRESSION- 1. Large pelvic fluid collection appears to be stable relative the previous exam. Catheter in stable position. Additional intra-abdominal fluid collections as noted above appears stable relative to the prior exam. 2. remaining pancreatic tissue difficult identify with certainty. Findings could represent postpancre atitis pseudocyst attempted drainage. Soft tissue fullness in the region of the uncinate process may represent residual pancreatic tissue. Correlate clinically to exclude pancreatitis. 3. There are areas of wall thickening involving the right and left colon. Correlate for colitis. Part icular attention to the hepatic flexure. Colitis favored over mucosal lesion correlate clinically. 4. Pneumobilia and biliary stent noted in position. As noted above there is soft tissue fullness in t he periampullary region and in the region of the pancreatic head and uncinate process. Neoplasm not e xcluded.. 5. Hepatomegaly correlate for hepatic steatosis.
[2019-10-16] MEDS ORDERED: Potassium Replacement Protocol 1 EACH MISC MISCELLANE PRN (10:44)
[2019-10-16] MEDS: POTASSIUM CHLORIDE ER 20 MEQ TAB.ER PO SCH ×2 (11:38→13:03)
--- NOTE | 2019-10-16 13:25 | P.PN ---
Subjective Progress Note Date: 10/16/19 CHIEF COMPLAINT: abdominal pain HISTORY OF PRESENT ILLNESS: Patient examined this morning at the bedside with Dr. Rosales. He reports some abdominal pain today that he states is worse than it was over the weekend. Tolerating diet. Denies nausea or vomiting. Passing flatus. PHYSICAL EXAM: VITAL SIGNS: Reviewed. GENERAL: Well-developed in no acute distress. HEENT: No sclera icterus. Extraocular movements grossly intact. Moist buccal mucosa. Head is atraumatic, normocephalic. ABDOMEN: Soft. Nondistended. Nontender. Drainage catheter present with brown output. NEUROLOGIC: Alert and oriented. Cranial nerves II through XII grossly intact. ASSESSMENT: 1. Abdominal pain, nausea, vomiting 2. History of open cholecystectomy, August 2019 3. History of pancreatic pseudocyst 4. History of DVT, on anticoagulation with Eliquis PLAN: Continue IV antibiotics Continue abdominal drainage catheter Continue diet as tolerated Hold Eliquis. Continue Lovenox 100mg Q12 hours Dr. Rosales reviewed CT scan from this morning. No surgical intervention recommended. Will continue with conservative measures at this time. Possible discharge within the next 24-48 hours Nurse practitioner note has been reviewed by physician. Signing provider agrees with the documented findings, assessment, and plan of care. Objective - Vital Signs Vital signs: Vital Signs Temp 99 F 10/16/19 07:40 Pulse 94 10/16/19 07:40 Resp 16 10/16/19 07:40 BP 139/87 10/16/19 07:40 Pulse Ox 95 10/16/19 07:40 Intake & Output 10/15/19 10/16/19 10/16/19 18:59 06:59 18:59 Intake Total 200 100 Balance 200 100 Intake: Intake, IV Titration 200 100 Amount Cefepime 2 gm In Sodium 100 100 Chloride 0.9% 100 ml @ 200 mls/hr IVPB Q12HR [facility] Rx#:[id number] metroNIDAZOLE-NS PMX 500 100 mg In Saline 1 100ml.bag @ 100 mls/hr IVPB Q8HR [facility] Rx#:[id number] Other: # Voids 1 - Labs CBC & Chem 7: 10/16/19 06:58 10/16/19 06:58 Labs: Abnormal Lab Results - Last 24 Hours (Table) 03/16/20 03/16/20 Range/Units 06:58 06:58 RBC 3.65 L (4.30-5.90) m/uL Hgb 10.0 L (13.0-17.5) gm/dL Hct 32.4 L (39.0-53.0) % MCHC 30.8 L (31.0-37.0) g/dL RDW 17.1 H (11.5-15.5) % Potassium 3.3 L (3.5-5.1) mmol/L Chloride 111 H (98-107) mmol/L Carbon Dioxide 21 L (22-30) mmol/L BUN 3 L (9-20) mg/dL Creatinine 0.56 L (0.66-1.25) mg/dL Calcium 8.0 L (8.4-10.2) mg/dL Microbiology - Last 24 Hours (Table) 10/12/19 09:30 Blood Culture - Preliminary Blood No Growth after 96 hours
[2019-10-16] MEDS: metroNIDAZOLE 500 MG TAB PO SCH (16:23)
[2019-10-16] MEDS: MORPHINE SULFATE 4 MG/ML SYRINGE IVP PRN ×2 (18:18→21:56)
[2019-10-16] MEDS: HYDROcodone/APAP 5-325MG 1 EACH TAB PO PRN (20:16)
--- NOTE | 2019-10-16 23:02 | PN ---
PROGRESS NOTE DATE OF SERVICE: 10/16/2019 REASON FOR FOLLOWUP: Abdominal abscess. INTERVAL HISTORY: The patient is currently afebrile. He has been breathing comfortably. The patient denies having any chest pain or shortness of breath or cough. Some abdominal discomfort, but no worsening. No nausea. No vomiting or diarrhea. PHYSICAL EXAMINATION: Blood pressure is 143/97 with pulse 115, temperature 99.1. He is 95% on room air. General description is a middle-aged male lying in bed in no distress. RESPIRATORY SYSTEM: Unlabored breathing. Clear to auscultation anteriorly. HEART: S1, S2. Regular rate and rhythm. ABDOMEN: Soft. No tenderness. LABS: Hemoglobin is 10, white count 5.7, creatinine 0.56. Blood culture has been negative. DIAGNOSTIC IMPRESSION AND PLAN: Patient with abdominal abscess in this patient who did have a history of pancreatic pseudocyst, status post drainage. CT did not show significant improvement. Currently on cefepime and Flagyl. Will discuss further with the surgical team with possible open drainage or transfer back to [facility]. Continue with supportive care. MMODL / IJN: [id number] /
[2019-10-17] MEDS: metroNIDAZOLE 500 MG TAB PO SCH ×2 (00:57→08:09)
[2019-10-17] MEDS: HYDROcodone/APAP 5-325MG 1 EACH TAB PO PRN ×3 (00:57→11:38)
[2019-10-17] MEDS: SODIUM CHLORIDE 0.9% 1,000 ML IV SCH ×2 (01:01→15:38)
[2019-10-17] MEDS: HYDROmorphone 0.5 MG/0.5 ML SYRINGE IVP PRN (03:39)
[2019-10-17] MEDS ORDERED: PANTOPRAZOLE 40 MG TABLET PO SCH (07:30)
[2019-10-17] MEDS: ENOXAPARIN 100 MG/ML SYRINGE SQ SCH (08:08)
[2019-10-17] MEDS: CEFEPIME 2 GM in SODIUM CHLORIDE 0.9% 100 ML IVPB SCH (08:08)
[2019-10-17] MEDS: amLODIPine 5 MG TAB PO SCH (08:09)
[2019-10-17 08:48] VITALS: BP 143/89; PULSE 107; RESP 17; TEMP 99
[2019-10-17] MEDS: HYDROmorphone 1 MG/ML 1 ML SYRINGE IVP PRN (09:01)
--- NOTE | 2019-10-17 12:48 | P.DS ---
Providers Date of admission: 10/12/19 10:44 Expected date of discharge: 10/17/19 Attending physician: Robin Rosales Consults: 10/12/19 10:54 Consult Physician Urgent Consulting Provider: Fadi Lopez Consult Reason/Comments: Medical management Do you want consulting provider notified?: Yes Consult Physician Urgent Consulting Provider: Ольга Elder Consult Reason/Comments: Intra-abdominal abscess Do you want consulting provider notified?: Yes Primary care physician: [facility] Course: 54 year old male who presented to the hospital with a chief complaint of abdominal pain. Patient is known to surgical services secondary to history of open cholecystectomy in August 2019. Patient developed a large pancreatic pseudocyst. Patient was transferred to [facility] for further evaluation of his pseudocyst. Patient states he had pseudocyst drained at [facility] and a pigtail drain inserted. He reports being diagnosed with a DVT in his arm at [facility] and was started on Eliquis. Patient underwent CT abdomen and pelvis revealing Interval replacement of internal biliary plastic stent with metallic stent graft which appears patent. Marked interval improvement in the large complex. Pancreatic fluid collection with new double J drainage catheter extending into the stomach. Interval improvement in the amount of abdominal pelvic ascites after placement of the percutaneous pigtail drainage catheter into the upper pelvis. However residual fluid collection has a rim enhancing wall and internal air raising concern for possible abscess development in the interval. New lobulation and linear extension without definite connection to bowel loops but fistulous communication is difficult to exclude. Dilated colon up to transition point at junction of left and sigmoid colon could reflect obstruction related to adhesions. Suggestion of mild to moderate sigmoid colitis with wall thickening. Focal prominent fluid collection posterior left lower quadrant could reflect a lubulated portion of the bowel wall off anterior pelvic fluid collection versed drip dilated small bowel loop. [id number] diffuse soft tissue anasarca with new small to tiny left pleural effusion presumed related to desired fluid overload state. Patient was evaluated by Dr. Rosales during hospitalization. Small bowel obstruction was ruled out. Patient was placed on IV antibiotics and Dr. Elder was consulted. Patient underwent repeat CT scan which was reviewed by Dr. Rosales. Radiology dictation states: large pelvic fluid collection appears to be stable relative to previous exam. Dr. Rosales recommends continuing with conservative management including continuing to keep abdominal drain in place. He was deemed stable for discharge home today on IV cefepime and oral Flagyl per Dr. Jimenez recommendations. Patient is to follow up outpatient with Dr. Rosales and also his physicians at [facility]. Please see EMR for further hospital course details. Discharge Diagosis: 1. Abdominal pain, nausea, vomiting 2. History of open cholecystectomy, August 2019 3. History of pancreatic pseudocyst 4. History of DVT, on anticoagulation with Nisha Nurse practitioner note has been reviewed by physician. Signing provider agrees with the documented findings, assessment, and plan of care. Patient Condition at Discharge: Stable Plan - Discharge Summary Discharge Rx Participant: No New Discharge Prescriptions: New metroNIDAZOLE [Flagyl] 500 mg PO Q8HR #42 tab Cefepime HCl [Maxipime] 2 gm IV Q12H #28 vial Continue HYDROcodone/APAP 5-325MG [[place] 5-325] 1 tab PO QID PRN PRN Reason: Pain Apixaban [Eliquis] 5 mg PO BID #60 tab Isradipine 5 mg PO BID #60 cap Discharge Medication List HYDROcodone/APAP 5-325MG [[place] 5-325] 1 tab PO QID PRN 08/25/19 [History] Apixaban [Eliquis] 5 mg PO BID #60 tab 10/17/19 [Rx] Cefepime HCl [Maxipime] 2 gm IV Q12H #28 vial 10/17/19 [Rx] Isradipine 5 mg PO BID #60 cap 10/17/19 [Rx] metroNIDAZOLE [Flagyl] 500 mg PO Q8HR #42 tab 10/17/19 [Rx] Follow up Appointment(s)/Referral(s): Cj Malloy MD [Primary Care Provider] - 1-2 days [facility] [NON-STAFF] - As Needed [facility] Visiting Nurse, [NON-STAFF] - As Needed Robin Rosales MD [STAFF PHYSICIAN] - 1 Week Activity/Diet/Wound Care/Special Instructions: ANTIBIOTICS PER DR. ELDER Discharge Disposition: HOME WITH HOME HEALTH SERVICES
--- NOTE | 2019-10-17 14:31 | PN ---
PROGRESS NOTE DATE OF SERVICE: 10/17/2019. REASON FOR FOLLOWUP: Possible abdominal abscess. INTERVAL HISTORY: The patient is currently afebrile. The patient has been breathing comfortably. The patient denies having any chest pain, shortness of breath, or cough. Abdominal pain is currently controlled. No nausea. No vomiting. No diarrhea. PHYSICAL EXAMINATION: Blood pressure 143/89 with a pulse of 107, temperature 99. He is 97% on room air. General description is a middle-aged male lying in bed in no distress. RESPIRATORY SYSTEM: Unlabored breathing. Clear to auscultation anteriorly. HEART: S1, S2. Regular rate and rhythm. ABDOMEN: Soft. No tenderness. LABS: Hemoglobin is 10, white count 5.7. Creatinine 0.56. DIAGNOSTIC IMPRESSION AND PLAN: Patient with abdominal abscess in this patient with recent complicated history with pancreatic pseudocyst that has been drained with abdominal collection and concern for an abscess. The patient's abdominal pain responded to cefepime and Flagyl, to continue for two weeks and see clinical response. Surgery recommended against any surgical intervention at this point. MMODL / IJN: [id number] /
== END 2019-10-17 15:05 | disposition home health service (06) | DRG 392 ==
LOC: EC 08:44 → 4SSUR 10:44
PROVIDERS: ADMIT Surgery; ATTEND Surgery
PROC: 05HB33Z Insertion of Infusion Device into Right Basilic Vein, Percutaneous Approach (ICD-10-PCS; principal; 2019-10-17 12:20)
DX: R10.9 Unspecified abdominal pain (principal); I82.621 Acute embolism and thrombosis of deep veins of right upper extremity; K59.39 Other megacolon; E87.6 Hypokalemia; F17.290 Nicotine dependence, other tobacco product, uncomplicated; H91.90 Unspecified hearing loss, unspecified ear; I10 Essential (primary) hypertension; Z79.01 Long term (current) use of anticoagulants; Z82.49 Family history of ischemic heart disease and other diseases of the circulatory system; Z86.718 Personal history of other venous thrombosis and embolism; Z88.0 Allergy status to penicillin; Z90.49 Acquired absence of other specified parts of digestive tract; Z79.899 Other long term (current) drug therapy
CPT/HCPCS: 36410; 36415; 74177; 76937; 80048; 80053; 81001; 82150; 83605; 83690; 83735; 84484; 85025; 85610; 85652; 85730; 86140; 87040; 93005; 96361; 96365; 96366; 96375; 96376; 99285

== ENCOUNTER 2019-10-20 22:25 | Inpatient (IN) | payer BC ==
[2019-10-20] MEDS ORDERED: PANTOPRAZOLE 40 MG/10 ML VIAL IVP STA (22:45)
[2019-10-20] MEDS ORDERED: ONDANSETRON 4 MG/2 ML VIAL IVP STA (22:45)
[2019-10-20] MEDS ORDERED: MORPHINE SULFATE 4 MG/ML SYRINGE IV STA (22:45)
[2019-10-20] MEDS ORDERED: SODIUM CHLORIDE 0.9% 1,000 ML IV STA ×3 (22:45→23:55)
--- NOTE | 2019-10-20 22:46 | ED ---
Abdominal Pain HPI - General Chief Complaint: Abdominal Pain Stated Complaint: Abdominal pain Time Seen by Provider: 10/20/19 22:33 Source: patient, RN notes reviewed, old records reviewed Mode of arrival: ambulatory Limitations: no limitations - History of Present Illness Initial Comments: This is a 54-year-old male here with complicated recent medical history gallbladder surgery which occurred 2 surgeries and then he did have a Pseudocyst removed. Patient currently has drain placement minimal drainage. Afebrile with nausea no vomiting admitted decreased thirst decreased appetite he is having and passing gas. Patient is discharged from hospital for dehydration. He is on antibiotics through PICC line currently both ertapenem and Flagyl. Patient denying fever currently MD Complaint: abdominal pain Location: epigastric, suprapubic Radiation: epigastric, suprapubic Migration to: epigastric, suprapubic Severity: moderate Severity scale (1-10): 7 Quality: aching Consistency: constant Improves With: nothing Worsens With: nothing Associated Symptoms: nausea - Related Data Previous Rx's Medication Instructions Recorded Apixaban [Eliquis] 5 mg PO BID #60 tab 10/17/19 Cefepime HCl [Maxipime] 2 gm IV Q12H #28 vial 10/17/19 HYDROcodone/APAP 5-325MG [[place] 1 tab PO QID PRN 3 Days #12 tab 10/17/19 5-325] Isradipine 5 mg PO BID #60 cap 10/17/19 metroNIDAZOLE [Flagyl] 500 mg PO Q8HR #42 tab 10/17/19 Hydrocodone/Acetaminophen [[place] 1 tab PO Q6HR PRN #10 tab 10/24/19 5-325] Allergies Allergy/AdvReac Type Severity Reaction Status Date / Time amoxicillin Allergy Rash/Hives Verified 10/21/19 11:50 Review of Systems ROS Statement: Those systems with pertinent positive or pertinent negative responses have been documented in the HPI. ROS Other: All systems not noted in ROS Statement are negative. Past Medical History Past Medical History: Hearing Disorder / Deafness, Hypertension Additional Past Medical History / Comment(s): HAD A HEART MURMUR WHEN A CHILD- NEVER HEARD ANYTHING AFTER THAT ABOUT IT, SL. HEARLING LOSS YAMILA. EARS. Stents placed in stomach History of Any Multi-Drug Resistant Organisms: None Reported Past Surgical History: Cholecystectomy Additional Past Surgical History / Comment(s): Colonoscopy with benign polypectomy Past Anesthesia/Blood Transfusion Reactions: No Reported Reaction Past Psychological History: No Psychological Hx Reported Smoking Status: Former smoker Past Alcohol Use History: Occasional Past Drug Use History: None Reported - Past Family History Father Family Medical History: Coronary Artery Disease (CAD) Additional Family Medical History / Comment(s): Father had 4 vessel CABG Mother Family Medical History: Hypertension General Exam Limitations: no limitations General appearance: alert, in no apparent distress Head exam: Present: atraumatic, normocephalic, normal inspection Eye exam: Present: normal appearance, PERRL, EOMI. Absent: scleral icterus, conjunctival injection, periorbital swelling ENT exam: Present: normal exam, mucous membranes moist Neck exam: Present: normal inspection. Absent: tenderness, meningismus, lymphadenopathy Respiratory exam: Present: normal lung sounds bilaterally. Absent: respiratory distress, wheezes, rales, rhonchi, stridor Cardiovascular Exam: Present: normal rhythm, tachycardia, normal heart sounds. Absent: systolic murmur, diastolic murmur, rubs, gallop, clicks GI/Abdominal exam: Present: soft, distended, tenderness, normal bowel sounds. Absent: guarding, rebound, rigid Extremities exam: Present: normal inspection, full ROM, normal capillary refill. Absent: tenderness, pedal edema, joint swelling, calf tenderness Back exam: Present: normal inspection Neurological exam: Present: alert, oriented X3, CN II-XII intact Psychiatric exam: Present: normal affect, normal mood Skin exam: Present: warm, dry, intact, normal color. Absent: rash Course Vital Signs 10/20/19 10/20/19 10/21/19 22:27 23:51 02:18 Temperature 98.9 F Pulse Rate 138 H 109 H 109 H Respiratory 20 18 18 Rate Blood Pressure 137/96 144/86 138/98 O2 Sat by Pulse 98 97 96 Oximetry 10/21/19 02:56 Temperature 98.9 F Pulse Rate 109 H Respiratory 18 Rate Blood Pressure 138/98 O2 Sat by Pulse 96 Oximetry - Reevaluation(s) Reevaluation #1: 10/20/19 23:16 medical record is reviewed Reevaluation #2: 10/20/19 23:16 patient pain is controlled - Consultations Consultation #1: Spoke with Dr. Rosales agree for admission would like computed tomography scan abdomen and pelvis Medical Decision Making - Medical Decision Making 51 female positive abdominal pain positive large bowel ileus patient to be admitted for ileus - Lab Data Result diagrams: 10/23/19 06:29 10/23/19 06:29 Lab Results 10/20/19 10/20/19 10/20/19 Range/Units 22:55 22:55 22:55 WBC 11.2 H (3.8-10.6) k/uL RBC 4.53 (4.30-5.90) m/uL Hgb 12.5 L (13.0-17.5) gm/dL Hct 39.7 (39.0-53.0) % MCV 87.6 (80.0-100.0) fL MCH 27.6 (25.0-35.0) pg MCHC 31.5 (31.0-37.0) g/dL RDW 17.3 H (11.5-15.5) % Plt Count 437 (150-450) k/uL Neutrophils % 80 % Lymphocytes % 13 % Monocytes % 4 % Eosinophils % 2 % Basophils % 0 % Neutrophils # 9.0 H (1.3-7.7) k/uL Lymphocytes # 1.4 (1.0-4.8) k/uL Monocytes # 0.5 (0-1.0) k/uL Eosinophils # 0.2 (0-0.7) k/uL Basophils # 0.0 (0-0.2) k/uL Hypochromasia Slight Anisocytosis Slight Sodium 137 (137-145) mmol/L Potassium 3.2 L (3.5-5.1) mmol/L Chloride 108 H (98-107) mmol/L Carbon Dioxide 19 L (22-30) mmol/L Anion Gap 10 mmol/L BUN 9 (9-20) mg/dL Creatinine 0.57 L (0.66-1.25) mg/dL Est GFR (CKD-EPI)AfAm >90 (>60 ml/min/1.73 sqM) Est GFR (CKD-EPI)NonAf >90 (>60 ml/min/1.73 sqM) Glucose 115 H (74-99) mg/dL Plasma Lactic Acid Rusty 1.0 (0.7-2.0) mmol/L Calcium 9.0 (8.4-10.2) mg/dL Total Bilirubin 0.5 (0.2-1.3) mg/dL AST 35 (17-59) U/L ALT 18 (4-49) U/L Alkaline Phosphatase 217 H (38-126) U/L Creatine Kinase 23 L (55-170) U/L Total Protein 5.9 L (6.3-8.2) g/dL Albumin 3.0 L (3.5-5.0) g/dL Amylase <30 L (30-110) U/L Lipase 97 (23-300) U/L Urine Color Urine Appearance (Clear) Urine pH (5.0-8.0) Ur Specific [place] (1.001-1.035) Urine Protein (Negative) Urine Glucose (UA) (Negative) Urine Ketones (Negative) Urine Blood (Negative) Urine Nitrite (Negative) Urine Bilirubin (Negative) Urine Urobilinogen (<2.0) mg/dL Ur Leukocyte Esterase (Negative) Urine RBC (0-5) /hpf Urine WBC (0-5) /hpf Ur Squamous Epith Cells (0-4) /hpf Hyaline Casts (0-2) /lpf Urine Mucus (None) /hpf // Range/Units 23:59 WBC (3.8-10.6) k/uL RBC (4.30-5.90) m/uL Hgb (13.0-17.5) gm/dL Hct (39.0-53.0) % MCV (80.0-100.0) fL MCH (25.0-35.0) pg MCHC (31.0-37.0) g/dL RDW (11.5-15.5) % Plt Count (150-450) k/uL Neutrophils % % Lymphocytes % % Monocytes % % Eosinophils % % Basophils % % Neutrophils # (1.3-7.7) k/uL Lymphocytes # (1.0-4.8) k/uL Monocytes # (0-1.0) k/uL Eosinophils # (0-0.7) k/uL Basophils # (0-0.2) k/uL Hypochromasia Anisocytosis Sodium (137-145) mmol/L Potassium (3.5-5.1) mmol/L Chloride (98-107) mmol/L Carbon Dioxide (22-30) mmol/L Anion Gap mmol/L BUN (9-20) mg/dL Creatinine (0.66-1.25) mg/dL Est GFR (CKD-EPI)AfAm (>60 ml/min/1.73 sqM) Est GFR (CKD-EPI)NonAf (>60 ml/min/1.73 sqM) Glucose (74-99) mg/dL Plasma Lactic Acid Rusty (0.7-2.0) mmol/L Calcium (8.4-10.2) mg/dL Total Bilirubin (0.2-1.3) mg/dL AST (17-59) U/L ALT (4-49) U/L Alkaline Phosphatase (38-126) U/L Creatine Kinase (55-170) U/L Total Protein (6.3-8.2) g/dL Albumin (3.5-5.0) g/dL Amylase (30-110) U/L Lipase (23-300) U/L Urine Color Yellow Urine Appearance Clear (Clear) Urine pH 6.5 (5.0-8.0) Ur Specific [place] 1.021 (1.001-1.035) Urine Protein 1+ H (Negative) Urine Glucose (UA) Negative (Negative) Urine Ketones Trace H (Negative) Urine Blood Negative (Negative) Urine Nitrite Negative (Negative) Urine Bilirubin Negative (Negative) Urine Urobilinogen <2.0 (<2.0) mg/dL Ur Leukocyte Esterase Negative (Negative) Urine RBC 1 (0-5) /hpf Urine WBC 3 (0-5) /hpf Ur Squamous Epith Cells <1 (0-4) /hpf Hyaline Casts 10 H (0-2) /lpf Urine Mucus Rare H (None) /hpf - EKG Data -: EKG Interpreted by Me (EKG shows sinus tachycardia of 120, CO 162, QRS 100, QTC 446) Disposition Clinical Impression: Ileus, Abdominal pain Disposition: ADMITTED IP TO THIS HOSP Condition: Good Is patient prescribed a controlled substance at d/c from ED?: No
[2019-10-20 23:24] LABS: Anisocytosis Slight; Basophils % (A) 0 %; Eosinophils # (A) 0.2 k/uL (0-0.7); Eosinophils % (A) 2 %; HCT 39.7 % (39.0-53.0); HGB 12.5 gm/dL (13.0-17.5); Hypochromasia Slight; Lymphocytes # (A) 1.4 k/uL (1.0-4.8); Lymphocytes % (A) 13 %; MCH 27.6 pg (25.0-35.0); MCHC 31.5 g/dL (31.0-37.0); MCV 87.6 fL (80.0-100.0); Mean Platelet Volume 6.7; Monocytes # (A) 0.5 k/uL (0-1.0); Monocytes % (A) 4 %; Neutrophils % (A) 80 %; Platelet Count 437 k/uL (150-450); RBC 4.53 m/uL (4.30-5.90); RDW 17.3 % (11.5-15.5); WBC 11.2 k/uL (3.8-10.6)
[2019-10-20 23:33] LABS: ALT 18 U/L (4-49); AST 35 U/L (17-59); African American GFR (CKD) >90 (>60 ml/min/1.73 sqM); Alkaline Phosphatase 217 U/L (38-126); Anion Gap 10 mmol/L; Blood Urea Nitrogen 9 mg/dL (9-20); Carbon Dioxide 19 mmol/L (22-30); Chloride 108 mmol/L (98-107); Creatine Kinase 23 U/L (55-170); Glucose 115 mg/dL (74-99); Non-African American GFR(CKD) >90 (>60 ml/min/1.73 sqM); Potassium 3.2 mmol/L (3.5-5.1); Sodium 137 mmol/L (137-145); Total Bilirubin 0.5 mg/dL (0.2-1.3); Total Protein 5.9 g/dL (6.3-8.2)
--- NOTE | 2019-10-20 23:43 | XR ---
EXAMINATION TYPE: XR abdomen acute w cxr DATE OF EXAM: 10/20/2019 COMPARISON: 08/08/2019 HISTORY: Abdominal pain. Vomiting. TECHNIQUE: 4 views FINDINGS: There is poor inspiration with linear density at the lung bases. There is no heart failure. Heart size is normal. There are multiple large bowel fluid levels. There is pigtail drainage catheter in the right mid abdo men. There is no evidence of free air. There are some drainage catheters over the epigastrium. There is some mild retained fecal material in the right colon. Left colon is mostly filled with air. There is some air in the biliary tree consist ent with reflux. IMPRESSION: There are large bowel fluid levels extending to the descending colon suggestive of large bowel ileus. No free air. Mild atelectasis at the lung bases. There is some air in the biliary tree w ithout dilated ducts. There is no significant constipation.
[2019-10-20 23:44] LABS: Amylase <30 U/L (30-110)
[2019-10-20] MEDS ORDERED: SODIUM CHLORIDE 0.9% 500 ML 500 ML IV STA (23:55)
[2019-10-20] MEDS ORDERED: POTASSIUM BICARBONATE/CIT AC 20 MEQ TABLET.EFF PO ONE (23:56)
[2019-10-21] MEDS ORDERED: POTASSIUM CHLORIDE 20 MEQ in WATER FOR INJECTION 1 100ML.BAG IVPB ONE
[2019-10-21] MEDS ORDERED: IOPAMIDOL CONTRAST (ORAL USE) VIAL PO PRN
[2019-10-21] MEDS ORDERED: ONDANSETRON 4 MG/2 ML VIAL IVP PRN (00:04)
[2019-10-21 00:13] LABS: Appearance,Urine Clear (Clear); Bilirubin,Urine Negative (Negative); Blood,Urine Negative (Negative); Color,Urine Yellow; Glucose,Urine (UA) Negative (Negative); Hyaline Casts,Urine 10 /lpf (0-2); Ketones,Urine Trace (Negative); Leukocyte Esterase,Urine Negative (Negative); Mucus,Urine Rare /hpf; Nitrite,Urine Negative (Negative); PH, Urine 6.5 (5.0-8.0); Protein,Urine 1+ (Negative); RBC,Urine 1 /hpf (0-5); Specific Gravity,Urine 1.021 (1.001-1.035); Squamous Epithelial Cell,Urine <1 /hpf (0-4); Urobilinogen,Urine <2.0 mg/dL (<2.0); WBC,Urine 3 /hpf (0-5)
[2019-10-21] MEDS: MORPHINE SULFATE 4 MG/ML SYRINGE IVP PRN ×2 (02:16→22:44)
--- NOTE | 2019-10-21 02:40 | CT ---
EXAMINATION TYPE: CT abdomen pelvis w con DATE OF EXAM: 10/21/2019 COMPARISON: October 16, 2019 HISTORY: abd pain CT DLP: 1043.4 mGycm Automated exposure control for dose reduction was used. CONTRAST: Performed with IV Contrast, patient injected with 100 mL of Isovue 300. Multiple axial sections were obtained from the diaphragm to the floor the pelvis with oral and intrav enous contrast. There is small left pleural effusion. There is bilateral patchy atelectasis at the left lung and righ t lung base. Heart size is fairly normal. There is no pericardial effusion. There is air in the biliary tree. Liver shows no focal defect. Spleen is intact. There is a drainage catheter extending through the pancreas into the gastric antrum. There is biliary stent. There is no adrenal mass. Kidneys show satisfactory contrast opacification. There is no hydronephrosi s. There is 2 mm calculus posterior right kidney. Ureters are not dilated. There is no retroperitonea l adenopathy. Bladder distends smoothly. There is no inguinal hernia. There are multiple distended fluid-filled loops of large bowel throughout the abdomen. There is patch y ascites fluid throughout the abdomen. There is pigtail drainage catheter in the lower abdomen on th e right side there appears to be well-positioned within some ascites fluid in the mid pelvis. There i s elongated 12 x 4 cm fluid collection associated with the lower abdominal pigtail catheter that is s lightly smaller than previous exam. Lumbar vertebra appear intact. Bony pelvis is intact. IMPRESSION: Pleural fluid and atelectasis at the lung bases unchanged. Air in the biliary tree unchanged. Pancreatic drainage catheter unchanged. Mid pelvis right-sided david inage catheter in good position with persistent fluid collection that is slightly smaller than previo us exam. Distended fluid-filled loops of large bowel with probably some wall thickening of the descending colo n consistent with ileus and colitis that appears worse than last exam. Peritoneal and retroperitoneal fluid overall not significantly different than last exam.
[2019-10-21] MEDS ORDERED: MORPHINE SULFATE 4 MG/ML SYRINGE IVP STA (02:50)
[2019-10-21] MEDS: PANTOPRAZOLE 40 MG/10 ML VIAL IVP SCH (07:42)
--- NOTE | 2019-10-21 11:30 | P.GSHP ---
History of Present Illness H&P Date: 10/21/19 Chief Complaint: Abdominal pain This is a 54-year-old male who is well-known service. Patient admitted to the hospital complaints of severe abdominal pain yesterday. His CAT scan appeared to have a colonic ileus appearance. Patient is known to have a pelvic abscess. Patient states that he had a bowel movement last night and his pain has improved. Past Medical History Past Medical History: Hearing Disorder / Deafness, Hypertension Additional Past Medical History / Comment(s): HAD A HEART MURMUR WHEN A CHILD- NEVER HEARD ANYTHING AFTER THAT ABOUT IT, SL. HEARLING LOSS YAMILA. EARS. Stents placed in stomach History of Any Multi-Drug Resistant Organisms: None Reported Past Surgical History: Cholecystectomy Additional Past Surgical History / Comment(s): Colonoscopy with benign polypectomy Past Anesthesia/Blood Transfusion Reactions: No Reported Reaction Past Psychological History: No Psychological Hx Reported Additional Psychological History / Comment(s): Pt resides with his spouse. He is independent. Smoking Status: Never smoker Past Alcohol Use History: Occasional Additional Past Alcohol Use History / Comment(s): Pt smokes occasional cigar during summer months. Pt states he drinks alcohol on the weekends only and not more than 14 drinks. Past Drug Use History: None Reported - Past Family History Father Family Medical History: Coronary Artery Disease (CAD) Additional Family Medical History / Comment(s): Father had 4 vessel CABG Mother Family Medical History: Hypertension Medications and Allergies Home Medications Medication Instructions Recorded Confirmed Type Apixaban [Eliquis] 5 mg PO BID #60 tab 10/17/19 Rx Cefepime HCl [Maxipime] 2 gm IV Q12H #28 vial 10/17/19 Rx HYDROcodone/APAP 5-325MG [[place] 1 tab PO QID PRN 3 Days #12 tab 10/17/19 Rx 5-325] Isradipine 5 mg PO BID #60 cap 10/17/19 Rx metroNIDAZOLE [Flagyl] 500 mg PO Q8HR #42 tab 10/17/19 Rx Allergies Allergy/AdvReac Type Severity Reaction Status Date / Time amoxicillin Allergy Rash/Hives Verified 10/20/19 22:29 Surgical - Exam Vital Signs Temp Pulse Resp BP Pulse Ox 98.9 F 138 H 20 137/96 98 10/20/19 22:27 10/20/19 22:27 10/20/19 22:27 10/20/19 22:27 10/20/19 22:27 - General well developed, well nourished, no distress - Eyes PERRL - ENT normal pinna - Neck no masses - Respiratory normal expansion - Cardiovascular Rhythm: regular - Abdomen Minimal tenderness in the right left lower quadrant Abdomen: soft Results - Labs 10/20/19 22:55 10/20/19 22:55 Abnormal Lab Results - Last 24 Hours (Table) 10/20/19 10/20/19 10/20/19 Range/Units 22:55 22:55 23:59 WBC 11.2 H (3.8-10.6) k/uL Hgb 12.5 L (13.0-17.5) gm/dL RDW 17.3 H (11.5-15.5) % Neutrophils # 9.0 H (1.3-7.7) k/uL Potassium 3.2 L (3.5-5.1) mmol/L Chloride 108 H (98-107) mmol/L Carbon Dioxide 19 L (22-30) mmol/L Creatinine 0.57 L (0.66-1.25) mg/dL Glucose 115 H (74-99) mg/dL Alkaline Phosphatase 217 H (38-126) U/L Creatine Kinase 23 L (55-170) U/L Total Protein 5.9 L (6.3-8.2) g/dL Albumin 3.0 L (3.5-5.0) g/dL Amylase <30 L (30-110) U/L Urine Protein 1+ H (Negative) Urine Ketones Trace H (Negative) Hyaline Casts 10 H (0-2) /lpf Urine Mucus Rare H (None) /hpf Diabetes panel 10/20/19 Range/Units 22:55 Sodium 137 (137-145) mmol/L Potassium 3.2 L (3.5-5.1) mmol/L Chloride 108 H (98-107) mmol/L Carbon Dioxide 19 L (22-30) mmol/L BUN 9 (9-20) mg/dL Creatinine 0.57 L (0.66-1.25) mg/dL Glucose 115 H (74-99) mg/dL Calcium 9.0 (8.4-10.2) mg/dL AST 35 (17-59) U/L ALT 18 (4-49) U/L Alkaline Phosphatase 217 H (38-126) U/L Total Protein 5.9 L (6.3-8.2) g/dL Albumin 3.0 L (3.5-5.0) g/dL Calcium panel 10/20/19 Range/Units 22:55 Calcium 9.0 (8.4-10.2) mg/dL Albumin 3.0 L (3.5-5.0) g/dL Pituitary panel 10/20/19 Range/Units 22:55 Sodium 137 (137-145) mmol/L Potassium 3.2 L (3.5-5.1) mmol/L Chloride 108 H (98-107) mmol/L Carbon Dioxide 19 L (22-30) mmol/L BUN 9 (9-20) mg/dL Creatinine 0.57 L (0.66-1.25) mg/dL Glucose 115 H (74-99) mg/dL Calcium 9.0 (8.4-10.2) mg/dL Adrenal panel 10/20/19 Range/Units 22:55 Sodium 137 (137-145) mmol/L Potassium 3.2 L (3.5-5.1) mmol/L Chloride 108 H (98-107) mmol/L Carbon Dioxide 19 L (22-30) mmol/L BUN 9 (9-20) mg/dL Creatinine 0.57 L (0.66-1.25) mg/dL Glucose 115 H (74-99) mg/dL Calcium 9.0 (8.4-10.2) mg/dL Total Bilirubin 0.5 (0.2-1.3) mg/dL AST 35 (17-59) U/L ALT 18 (4-49) U/L Alkaline Phosphatase 217 H (38-126) U/L Total Protein 5.9 L (6.3-8.2) g/dL Albumin 3.0 L (3.5-5.0) g/dL Assessment and Plan Assessment: History of pelvic abscess. Patient's drainage catheter is appropriately position. The abscess cavity is smaller. Colonic ileus. Patient had a bowel movement with improved pain. Patient will be fed and observed today.
[2019-10-21] MEDS ORDERED: NON FORMULARY DRUG (Cefepime Hcl [Maxipime] 2 GM) IV SCH (20:15)
[2019-10-21] MEDS: CEFEPIME 2 GM in SODIUM CHLORIDE 0.9% 100 ML IVPB SCH (20:34)
[2019-10-21] MEDS: APIXABAN 5 MG TAB PO SCH (20:35)
[2019-10-21] MEDS: amLODIPine 5 MG TAB PO SCH (20:35)
[2019-10-21] MEDS: metroNIDAZOLE 500 MG TAB PO SCH (22:44)
--- NOTE | 2019-10-21 23:59 | P.CONS ---
History of Present Illness - Reason for Consult Consult date: 10/21/19 abd abscess Requesting physician: Robin Rosales - Chief Complaint abd pain x few days - History of Present Illness Patient is a 54-year-old male with a past medical he significant for gallstone pancreatitis status post open cholecystectomy in this patient develo ping pancreatic pseudocyst for the patient was transferred to [facility] where he did have endoscopic drainage of this pancreatic pseudocyst also have abdominal abscess that was drained and the patient still have the drainage catheter he was recently admitted to this facility with worsening abdominal pain with concern for abdominal abscess and the patient was treated with cefepime and Flagyl and subsequent discharged home on those antibiotics for 2-week course patient was discharged home on Wednesday and is now presented back to the hospital within 4 days with concern for abdominal pain that has been epigastric in the lower abdominal area describing to be dull aching intensity will be 71-year-old friend and no relief with oral pain medication the patient has been on patient did have nausea but no vomiting he did have a bowel movement continued to drain about 50 cc of purulent drainage from his drainage catheter with the symptom the patient presented to the hospital patient was evaluated by the ER physician on arrival to the ER with patient has been afebrile patient did have mild white count of 11.2 kidney function was normal UA has been negative patient did have a CT of abdominal pelvis completed which shows multiple distended fluid-filled loops of large bowel throughout the abdominal elongated 12 x 4 cm collection associated with the lower abdominal catheter is slightly smaller than previous exam patient has been admitted to hospital he was continued cefepime and Flagyl infectious disease was consulted for further recommendation for antibiotic therapy. Review of Systems Positive point has been mentioned in HPI rest of the systems are negative Past Medical History Past Medical History: Hearing Disorder / Deafness, Hypertension Additional Past Medical History / Comment(s): HAD A HEART MURMUR WHEN A CHILD- NEVER HEARD ANYTHING AFTER THAT ABOUT IT, SL. HEARLING LOSS YAMILA. EARS. Stents placed in stomach History of Any Multi-Drug Resistant Organisms: None Reported Past Surgical History: Cholecystectomy Additional Past Surgical History / Comment(s): Colonoscopy with benign polypectomy Past Anesthesia/Blood Transfusion Reactions: No Reported Reaction Past Psychological History: No Psychological Hx Reported Additional Psychological History / Comment(s): Pt resides with his spouse. He is independent. Smoking Status: Never smoker Past Alcohol Use History: Occasional Additional Past Alcohol Use History / Comment(s): Pt smokes occasional cigar during summer months. Pt states he drinks alcohol on the weekends only and not more than 14 drinks. Past Drug Use History: None Reported - Past Family History Father Family Medical History: Coronary Artery Disease (CAD) Additional Family Medical History / Comment(s): Father had 4 vessel CABG Mother Family Medical History: Hypertension Medications and Allergies Home Medications Medication Instructions Recorded Confirmed Type Apixaban [Eliquis] 5 mg PO BID #60 tab 10/17/19 10/21/19 Rx Cefepime HCl [Maxipime] 2 gm IV Q12H #28 vial 10/17/19 10/21/19 Rx HYDROcodone/APAP 5-325MG [[place] 1 tab PO QID PRN 3 Days #12 tab 10/17/19 10/21/19 Rx 5-325] Isradipine 5 mg PO BID #60 cap 10/17/19 10/21/19 Rx metroNIDAZOLE [Flagyl] 500 mg PO Q8HR #42 tab 10/17/19 10/21/19 Rx Allergies Allergy/AdvReac Type Severity Reaction Status Date / Time amoxicillin Allergy Rash/Hives Verified 10/21/19 11:50 Physical Exam Vitals: Vital Signs Temp Pulse Pulse Resp BP BP Pulse Ox 10/21/19 20:29 14 10/21/19 19:24 98.7 F 106 H 14 129/87 98 10/21/19 15:00 98.3 F 114 H 18 130/80 99 10/21/19 07:00 97.9 F 116 H 18 129/92 97 10/21/19 03:10 98.3 F 121 H 18 159/99 96 10/21/19 02:56 98.9 F 109 H 18 138/98 96 10/21/19 02:18 109 H 18 138/98 96 Intake and Output 10/21/19 10/21/19 10/22/19 14:59 22:59 06:59 Intake Total 1540 Balance 1540 Intake: Intake, IV Titration 1140 Amount Cefepime 2 gm In Sodium 100 Chloride 0.9% 100 ml @ 200 mls/hr IVPB Q12HR OBEY Rx#:[id number] Sodium Chloride 0.9% 1, 1040 000 ml @ 130 mls/hr IV . Q7H42M STA Rx#:[id number] Oral 400 Other: Voiding Method Toilet Toilet Urinal Urinal # Voids 2 2 GENERAL DESCRIPTION: Middle-aged male lying in bed, no distress. No tachypnea or accessory muscle of respiration use. HEENT: Shows Pallor , no scleral icterus. Oral mucous membrane is dry. NECK: Trachea central, no thyromegaly. LUNGS: Unlabored breathing. Clear to auscultation anteriorly. No wheeze or crack le. HEART: S1, S2, regular rate and rhythm. ABDOMEN: Soft, mild tenderness , guarding or rigidity, drainage catheter some purulent secretions EXTREMITIES: No edema of feet. SKIN: No rash, no masses palpable. NEUROLOGICAL: The patient is awake, alert, oriented x3, mood and affect normal. Results CBC & Chem 7: 10/20/19 22:55 10/20/19 22:55 Labs: Abnormal Lab Results - Last 24 Hours (Table) 10/20/19 Range/Units 23:59 Urine Protein 1+ H (Negative) Urine Ketones Trace H (Negative) Hyaline Casts 10 H (0-2) /lpf Urine Mucus Rare H (None) /hpf Assessment and Plan Assessment: Patient presented to hospital abdominal pain in this patient who did have a co mplicated history of gallstone pancreatitis status post couple cholecystectomy in the pancreatic pseudocyst that has been drained and abdominal abscess drained and still have a drainage catheter was receiving outpatient IV cefepime and Flagyl multiple hospital abdominal pain could related to ileus as the patient not running any fever collection seem to be slightly smaller compared to his recent CT (1) Intra-abdominal abscess Current Visit: No Status: Acute Code(s): K65.1 - PERITONEAL ABSCESS SNOMED Code(s): 13856755 Plan: 1-we will give the patient cefepime 2 g every 12 and Flagyl 500 every 8 2-we will review the CT with the radiologist 3-gentle IV fluid We will follow on clinical condition and cultures to further adjust medication if needed Thank you for this consultation we will follow the patient along with you Time with Patient: Greater than 30
[2019-10-22] MEDS: MORPHINE SULFATE 4 MG/ML SYRINGE IVP PRN ×4 (02:01→15:35)
[2019-10-22] MEDS: APIXABAN 5 MG TAB PO SCH ×2 (07:44→20:48)
[2019-10-22] MEDS: amLODIPine 5 MG TAB PO SCH ×2 (07:44→20:48)
[2019-10-22] MEDS: metroNIDAZOLE 500 MG TAB PO SCH ×2 (07:44→15:31)
[2019-10-22] MEDS: PANTOPRAZOLE 40 MG/10 ML VIAL IVP SCH (07:44)
[2019-10-22] MEDS: CEFEPIME 2 GM in SODIUM CHLORIDE 0.9% 100 ML IVPB SCH ×2 (08:47→20:49)
--- NOTE | 2019-10-22 10:24 | P.PN ---
Progress Note - Text Progress Note Date: 10/22/19 Patient has complaints of abdominal pain. He states pain was 8 out of 10. He mainly feels pain in the lower quadrants. Patient has had bowel function. On exam his vital signs are stable. Abdomen soft there is mild tenderness in the right left lower quadrant. There is no rebound or guarding. Known history of inch peritoneal abscess with drainage catheter. Patient will continue by mouth antibiotics and supportive care. If his condition changes we will repeat his CAT scan.
--- NOTE | 2019-10-22 20:26 | PN ---
PROGRESS NOTE REASON FOR FOLLOWUP: Abdominal abscess. INTERVAL HISTORY: The patient is currently afebrile. The patient still having abdominal pain, but denies any worsening. Denies any chest pain, shortness of breath or cough. PHYSICAL EXAMINATION: Blood pressure 122/82 with a pulse of 107. Temperature 97.7. He is 98% on room air. General description is a middle-aged male up in the chair in no distress. Respiratory system: Unlabored breathing. Clear to auscultation anteriorly. Heart S1, S2. Regular rate and rhythm. ABDOMEN: Soft. No tenderness. LABS: No new labs have been obtained today. Blood cultures on admission have been negative so far. DIAGNOSTIC IMPRESSION AND PLAN: Patient admitted to the hospital with abdominal pain and pancreatitis. Pancreatic pseudocyst has been drained and abdominal abscess. Sputum completed. He is still comfortable colitis. Continue this with being drained and abdominal abscess. The patient admitted to the hospital with worsening of abdominal pain. The CT showed some improvement. The patient is covered with Cefepime and the Flagyl to continue. I will read the CT with the radiologist tomorrow. Continue supportive care. MMODL / IJN: [id number] /
[2019-10-23] MEDS: metroNIDAZOLE 500 MG TAB PO SCH ×4 (00:23→23:02)
[2019-10-23] MEDS: MORPHINE SULFATE 4 MG/ML SYRINGE IVP PRN ×4 (06:20→23:04)
[2019-10-23 07:02] LABS: Anisocytosis Slight; Basophils % (A) 1 %; Eosinophils # (A) 0.2 k/uL (0-0.7); Eosinophils % (A) 3 %; HCT 33.6 % (39.0-53.0); HGB 10.5 gm/dL (13.0-17.5); Hypochromasia Slight; Lymphocytes # (A) 1.2 k/uL (1.0-4.8); Lymphocytes % (A) 18 %; MCH 27.7 pg (25.0-35.0); MCHC 31.3 g/dL (31.0-37.0); MCV 88.5 fL (80.0-100.0); Mean Platelet Volume 7.1; Monocytes # (A) 0.4 k/uL (0-1.0); Monocytes % (A) 7 %; Neutrophils # (A) 4.7 k/uL (1.3-7.7); Neutrophils % (A) 71 %; Platelet Count 272 k/uL (150-450); RDW 17.5 % (11.5-15.5); WBC 6.6 k/uL (3.8-10.6)
[2019-10-23 07:16] LABS: African American GFR (CKD) >90 (>60 ml/min/1.73 sqM); Anion Gap 5 mmol/L; Blood Urea Nitrogen 5 mg/dL (9-20); C Reactive Protein 53.1 mg/L (<10.0); Calcium 8.2 mg/dL (8.4-10.2); Carbon Dioxide 22 mmol/L (22-30); Chloride 109 mmol/L (98-107); Glucose 100 mg/dL (74-99); Non-African American GFR(CKD) >90 (>60 ml/min/1.73 sqM); Potassium 2.9 mmol/L (3.5-5.1); Sodium 136 mmol/L (137-145)
[2019-10-23] MEDS: CEFEPIME 2 GM in SODIUM CHLORIDE 0.9% 100 ML IVPB SCH ×2 (09:20→19:57)
[2019-10-23] MEDS: PANTOPRAZOLE 40 MG/10 ML VIAL IVP SCH (09:21)
[2019-10-23] MEDS: amLODIPine 5 MG TAB PO SCH ×2 (09:21→19:57)
[2019-10-23] MEDS: APIXABAN 5 MG TAB PO SCH ×2 (09:21→19:57)
--- NOTE | 2019-10-23 10:31 | P.PN ---
Subjective Progress Note Date: 10/23/19 CHIEF COMPLAINT: Abdominal pain HISTORY OF PRESENT ILLNESS: Patient seen and examined at the bedside. Patient continues to report abdominal pain. Currently rating 8/10. He is receiving IV narcotics for pain. PHYSICAL EXAM: VITAL SIGNS: Reviewed. GENERAL: Well-developed in no acute distress. HEENT: No sclera icterus. Extraocular movements grossly intact. Moist buccal mucosa. Head is atraumatic, normocephalic. ABDOMEN: Soft. Nondistended. Mild tenderness with palpation of lower quadrants. Abdominal drain intact with minimal brown output. NEUROLOGIC: Alert and oriented. Cranial nerves II through XII grossly intact. ASSESSMENT: 1. Abdominal pain 2. Ileus, resolving 3. History of abdominal abscess PLAN: -Continue diet as tolerated -Pain control -Continue IV antibiotics per Dr. Hernandez -Replace potassium. Check magnesium level Nurse practitioner note has been reviewed by physician. Signing provider agrees with the documented findings, assessment, and plan of care. Objective - Vital Signs Vital signs: Vital Signs Temp 98.8 F 10/23/19 07:00 Pulse 98 10/23/19 07:00 Resp 18 10/23/19 07:00 BP 143/92 10/23/19 07:00 Pulse Ox 96 10/23/19 07:00 Intake & Output 10/22/19 10/23/19 10/23/19 18:59 06:59 18:59 Output Total 400 Balance -400 Output: Urine 400 Other: Voiding Method Toilet Toilet Urinal # Voids 1 - Labs CBC & Chem 7: 10/23/19 06:29 10/23/19 06:29 Labs: Abnormal Lab Results - Last 24 Hours (Table) 10/23/19 10/23/19 Range/Units 06:29 06:29 RBC 3.80 L (4.30-5.90) m/uL Hgb 10.5 L (13.0-17.5) gm/dL Hct 33.6 L (39.0-53.0) % RDW 17.5 H (11.5-15.5) % Sodium 136 L (137-145) mmol/L Potassium 2.9 L (3.5-5.1) mmol/L Chloride 109 H (98-107) mmol/L BUN 5 L (9-20) mg/dL Creatinine 0.49 L (0.66-1.25) mg/dL Glucose 100 H (74-99) mg/dL Calcium 8.2 L (8.4-10.2) mg/dL C-Reactive Protein 53.1 H (<10.0) mg/L Microbiology - Last 24 Hours (Table) 10/20/19 22:55 Blood Culture - Preliminary Blood No Growth after 48 hours
[2019-10-23] MEDS: POTASSIUM CHLORIDE ER 20 MEQ TAB.ER PO SCH ×3 (11:37→15:13)
[2019-10-24] MEDS: MORPHINE SULFATE 4 MG/ML SYRINGE IVP PRN ×4 (02:01→16:48)
--- NOTE | 2019-10-24 05:22 | PN ---
PROGRESS NOTE DATE OF SERVICE: 10/23/2019 REASON FOR FOLLOWUP: Abdominal abscess. INTERVAL HISTORY: The patient is currently afebrile, has been breathing comfortably. Still complaining of abdominal pain, but no worsening. Did have an episode of vomiting this morning. No diarrhea. No chest pain, shortness of breath or cough. PHYSICAL EXAMINATION: Blood pressure 142/90 with a pulse of 103, temperature 98.2. He is 98% on room air. General description is a middle-aged male up in the chair in no distress. RESPIRATORY SYSTEM: Unlabored breathing, clear to auscultation anteriorly. HEART: S1, S2. Regular rate and rhythm. ABDOMEN: Soft, no tenderness. LABS: Hemoglobin is 10.5, white count 6.6. CRP is elevated at 53.1. The blood culture has been negative. DIAGNOSTIC IMPRESSION AND PLAN: Patient admitted to the hospital with abdominal pain in this patient who did have history of pancreatic pseudocyst and abdominal abscess that has been drained. CT could not be reviewed has no radiologist was available. Patient is currently covered with cefepime and Flagyl to continue and will monitor clinical course closely. MMODL / IJN: [id number] /
[2019-10-24] MEDS: CEFEPIME 2 GM in SODIUM CHLORIDE 0.9% 100 ML IVPB SCH ×2 (09:36→20:45)
[2019-10-24] MEDS: amLODIPine 5 MG TAB PO SCH ×2 (09:37→20:45)
[2019-10-24] MEDS: APIXABAN 5 MG TAB PO SCH ×2 (09:37→20:45)
[2019-10-24] MEDS: PANTOPRAZOLE 40 MG TABLET PO SCH (09:37)
[2019-10-24] MEDS: metroNIDAZOLE 500 MG TAB PO SCH ×3 (09:37→23:05)
--- NOTE | 2019-10-24 14:03 | P.PN ---
Subjective Progress Note Date: 10/24/19 CHIEF COMPLAINT: Abdominal pain HISTORY OF PRESENT ILLNESS: Patient seen and examined at the bedside. Patient states his abdominal pain is improving today. He has not required IV narcotics today. Patient reports having a bowel movement this morning. Denies nausea or vomiting. Tolerating diet. PHYSICAL EXAM: VITAL SIGNS: Reviewed. GENERAL: Well-developed in no acute distress. HEENT: No sclera icterus. Extraocular movements grossly intact. Moist buccal mucosa. Head is atraumatic, normocephalic. ABDOMEN: Soft. Nondistended. Mild tenderness with palpation of lower quadrants. Abdominal drain intact with minimal brown output. NEUROLOGIC: Alert and oriented. Cranial nerves II through XII grossly intact. ASSESSMENT: 1. Abdominal pain 2. Ileus, resolving 3. History of abdominal abscess PLAN: -Continue diet as tolerated -Pain control. Avoid IV narcotics if possible. Begin [place]. -Continue IV antibiotics per Dr. Hernandez -Replace magnesium as it was 1.4 yesterday when checked and has not been supplemented. Potassium was supplemented today. Recheck labs in AM. -Anticipate discharge home tomorrow if pain tolerable on oral medications only Nurse practitioner note has been reviewed by physician. Signing provider agrees with the documented findings, assessment, and plan of care. Objective - Vital Signs Vital signs: Vital Signs Temp 98.2 F 10/24/19 02:48 Pulse 93 10/24/19 07:50 Resp 18 10/24/19 07:50 BP 133/88 10/24/19 02:48 Pulse Ox 97 10/24/19 02:48 Intake & Output 10/23/19 10/24/19 10/24/19 18:59 06:59 18:59 Output Total 300 300 Balance -300 -300 Output: Urine 300 300 Other: Voiding Method Toilet Toilet # Voids 3 3 3 - Labs CBC & Chem 7: 10/23/19 06:29 10/23/19 06:29 Labs: Microbiology - Last 24 Hours (Table) 10/20/19 22:55 Blood Culture - Preliminary Blood No Growth after 72 hours
[2019-10-24] MEDS: MAGNESIUM SULFATE-D5W PMX 1 GM in DEXTROSE/WATER 1 100ML.BAG IVPB SCH ×3 (16:49→19:26)
[2019-10-24 19:29] VITALS: RESP 18
[2019-10-24] MEDS: HYDROcodone/APAP 5-325MG 1 EACH TAB PO PRN (20:45)
--- NOTE | 2019-10-24 21:17 | PN ---
PROGRESS NOTE DATE OF SERVICE: 10/24/2019 REASON FOR FOLLOWUP: Abdominal abscess. INTERVAL HISTORY: The patient is currently afebrile. The patient is breathing comfortably. Still complaining of abdominal pain but no worsening. Some nausea but no further vomiting. No diarrhea. PHYSICAL EXAMINATION: Blood pressure 133/89 with a pulse of 102, temperature 98.2. He is 95% on room air. General description is a middle-aged male lying in bed in no distress. RESPIRATORY SYSTEM: Unlabored breathing. Clear to auscultation anteriorly. HEART: S1, S2. Regular rate and rhythm. ABDOMEN: Soft. No tenderness. LABS: Hemoglobin is 10.5, white count 6.6. Blood culture has been negative so far. DIAGNOSTIC IMPRESSION AND PLAN: Patient with abdominal abscess in this patient who does have history of gallstone pancreatitis, status post open cholecystectomy. Subsequently he had drainage of the abscess. The patient is currently covered with cefepime and Flagyl; to continue. White count normalized. Monitor his clinical course closely. MMODL / IJN: [id number] /
[2019-10-25] MEDS: MORPHINE SULFATE 4 MG/ML SYRINGE IVP PRN (00:54)
[2019-10-25] MEDS: HYDROcodone/APAP 5-325MG 1 EACH TAB PO PRN ×2 (01:57→09:12)
[2019-10-25 07:10] LABS: ALT 12 U/L (4-49); AST 30 U/L (17-59); African American GFR (CKD) >90 (>60 ml/min/1.73 sqM); Albumin 2.3 g/dL (3.5-5.0); Alkaline Phosphatase 138 U/L (38-126); Anion Gap 8 mmol/L; Blood Urea Nitrogen 4 mg/dL (9-20); Calcium 8.4 mg/dL (8.4-10.2); Carbon Dioxide 20 mmol/L (22-30); Chloride 110 mmol/L (98-107); Glucose 98 mg/dL (74-99); Non-African American GFR(CKD) >90 (>60 ml/min/1.73 sqM); Potassium 3.4 mmol/L (3.5-5.1); Sodium 138 mmol/L (137-145); Total Bilirubin 0.4 mg/dL (0.2-1.3); Total Protein 5.3 g/dL (6.3-8.2)
[2019-10-25] MEDS: APIXABAN 5 MG TAB PO SCH (07:10)
[2019-10-25] MEDS: PANTOPRAZOLE 40 MG TABLET PO SCH (07:10)
[2019-10-25] MEDS: amLODIPine 5 MG TAB PO SCH (07:10)
[2019-10-25] MEDS: metroNIDAZOLE 500 MG TAB PO SCH (07:10)
[2019-10-25] MEDS: CEFEPIME 2 GM in SODIUM CHLORIDE 0.9% 100 ML IVPB SCH (07:10)
[2019-10-25 07:12] LABS: Anisocytosis Slight; Basophils % (A) 0 %; Eosinophils # (A) 0.2 k/uL (0-0.7); Eosinophils % (A) 4 %; HCT 36.6 % (39.0-53.0); HGB 11.3 gm/dL (13.0-17.5); Hypochromasia Marked; Lymphocytes # (A) 1.4 k/uL (1.0-4.8); Lymphocytes % (A) 25 %; MCH 27.7 pg (25.0-35.0); MCHC 30.8 g/dL (31.0-37.0); MCV 89.9 fL (80.0-100.0); Mean Platelet Volume 7.2; Monocytes # (A) 0.4 k/uL (0-1.0); Monocytes % (A) 6 %; Neutrophils # (A) 3.7 k/uL (1.3-7.7); Neutrophils % (A) 63 %; Platelet Count 339 k/uL (150-450); RBC 4.07 m/uL (4.30-5.90); WBC 5.9 k/uL (3.8-10.6)
[2019-10-25 07:48] VITALS: BP 132/88; PULSE 94; TEMP 98.3
[2019-10-25] MEDS ORDERED: KETOROLAC 30 MG/ML 1 ML VIAL IVP STA (08:34)
[2019-10-25] MEDS: POTASSIUM CHLORIDE ER 20 MEQ TAB.ER PO SCH ×2 (09:12→10:55)
--- NOTE | 2019-10-25 10:18 | P.DS ---
Providers Date of admission: 10/21/19 00:02 Expected date of discharge: 10/25/19 Attending physician: Robin Rosales Consults: 10/21/19 20:12 Consult Physician Routine Consulting Provider: Ольга Elder Consult Reason/Comments: antibiotics Do you want consulting provider notified?: Yes, Notify in am Primary care physician: [facility] Course: 54-year-old male who is known to surgical services secondary to history of open cholecystectomy in August 2019. Patient developed a large pancreatic pseudocyst. Patient was transferred to [facility] for further evaluation of his pseudocyst. Patient states he had pseudocyst drained at [facility] and a pigtail drain inserted. He reports being diagnosed with a DVT in his arm at [facility] and was started on Eliquis. Patient was recently hospitalized from 10/12/2019 until 10/17/2019 secondary to an intra-abdominal abscess. Patient received IV antibiotics and was discharged home with oral antibiotics per infectious disease recommendations. Patient was stable at the time of discharge. He presented back to the hospital secondary to abdominal pain. Patient was found to have an ileus which has since resolved. he is tolerating diet without nausea or vomiting. He is having bowel movements. Patient was requiring IV narcotics to control his pain. His pain has improved during hospitalization and he is requiring only oral pain medications at this time. Patient stable for discharge home today per Dr. Rosales. He is to follow up outpatient with Dr. Rosales and also his physician at [facility]. Discharge Diagnosis: 1. Abdominal pain 2. Ileus, resolving 3. History of abdominal abscess Nurse practitioner note has been reviewed by physician. Signing provider agrees with the documented findings, assessment, and plan of care. Patient Condition at Discharge: Good Plan - Discharge Summary Discharge Rx Participant: No New Discharge Prescriptions: New Hydrocodone/Acetaminophen [[place] 5-325] 1 tab PO Q6HR PRN #10 tab PRN Reason: Pain No Action metroNIDAZOLE [Flagyl] 500 mg PO Q8HR #42 tab Cefepime HCl [Maxipime] 2 gm IV Q12H #28 vial Apixaban [Eliquis] 5 mg PO BID #60 tab Isradipine 5 mg PO BID #60 cap HYDROcodone/APAP 5-325MG [[place] 5-325] 1 tab PO QID PRN 3 Days #12 tab PRN Reason: Pain Discharge Medication List Apixaban [Eliquis] 5 mg PO BID #60 tab 10/17/19 [Rx] Cefepime HCl [Maxipime] 2 gm IV Q12H #28 vial 10/17/19 [Rx] HYDROcodone/APAP 5-325MG [[place] 5-325] 1 tab PO QID PRN 3 Days #12 tab 10/17/19 [Rx] Isradipine 5 mg PO BID #60 cap 10/17/19 [Rx] metroNIDAZOLE [Flagyl] 500 mg PO Q8HR #42 tab 10/17/19 [Rx] Hydrocodone/Acetaminophen [[place] 5-325] 1 tab PO Q6HR PRN #10 tab 10/24/19 [Rx] Follow up Appointment(s)/Referral(s): Cj Malloy MD [Primary Care Provider] - 1-2 days Ольга Elder MD [STAFF PHYSICIAN] - 1 Week [facility] Visiting Nurse, [NON-STAFF] - As Needed Robin Rosales MD [STAFF PHYSICIAN] - 10/31/19 (May do a telephone call with Dr. Rosales instead due to coronavirus) Activity/Diet/Wound Care/Special Instructions: PLEASE CONTACT DR. ELDER FOR ANTIBIOTICS BEFORE DISCHARGE
--- NOTE | 2019-10-25 15:49 | P.PN ---
Progress Note - Text Progress Note Date: 10/25/19 REASON FOR FOLLOWUP: Abdominal abscess. INTERVAL HISTORY: The patient remains to be afebrile. The patient is breathing comfortably. The patient abdominal Pain is currently controlled with pain medication, denies having any nausea or vomiting no diarrhea Overall output in the drainage tube has decreased about 40 mL PHYSICAL EXAMINATION: Blood pressure 132/80 with a pulse of 90, temperature 98.2. He is 95% on room air. General description is a middle-aged male lying in bed in no distress. RESPIRATORY SYSTEM: Unlabored breathing. Clear to auscultation anteriorly. HEART: S1, S2. Regular rate and rhythm. ABDOMEN: Soft. No tenderness. LABS: Hemoglobin is 10.5, white count 5.6. Blood culture has been negative so far. DIAGNOSTIC IMPRESSION AND PLAN: Patient with abdominal abscess in this patient who does have history of gallstone pancreatitis, status post open cholecystectomy. Subsequently he had drainage of the abscess. The patient is currently covered with cefepime and Flagyl; which will be Continued for 2 more weeks and will monitor his clinical course closely in outpatient setting
--- NOTE | 2019-10-27 03:09 | CDI ---
Documentation Clarification Form Date: 10/27/2019 From: Seth Richey Phone: If you have a question about this query, please contact Carlita Nieto, Medical Accountant at [phone] between 8am and 5pm. Admit Date: 10/21/2019 Discharge Date: 10/25/2019 Patient Name: Wm Antonio Visit Number: [id number] ATTENTION: The Clinical Documentation Specialists (CDI) and [facility] Coding Staff appreciate your assistance in clarifying documentation. Please respond to the clarification below the line at the bottom and electronically sign. The CDI & [facility] Coding staff will review the response and follow-up if needed. Please note: Queries are made part of the Legal Health Record. If you have any questions, please contact the author of this message via ITS. Dear Dr Bobby Kelly., Colonic ileus is documented in H&P and DS note. Patients Admitting Diagnosis:Ileus Post-Operative Diagnosis:Ileus Procedure performed: Open Cholecystectomy and I and D of Peritoneal Abscess. History/Risk Factors: Ielus, Peritoneal abscess Treatment: Iv antibiotics, Drainage Patient was recently hospitalized from 10/12/2019 until 10/17/2019 secondary to an intra-abdominal abscess.Patient received IV antibiotics and was discharged home with oral antibiotics per infectious disease recommendations.Patient was stable at the time of discharge.He presented back to the hospital secondary to abdominal pain.Patient was found to have an ileus which has since resolved. In order to accurately reflect this patients severity of illness, please clarify if Ileus is the Complication of the surgical procedure? Yes ?No ?Other, please specify ?Unable to determine No, most likely due to his pancreatic pseudocyst MTDD
== END 2019-10-25 13:45 | disposition home or self-care (01) | DRG 388 ==
LOC: EC 22:25 → 4SSUR 10-21 00:02
PROVIDERS: ADMIT Surgery; ATTEND Surgery
DX: K56.7 Ileus, unspecified (principal); K65.1 Peritoneal abscess; K86.3 Pseudocyst of pancreas; K52.9 Noninfective gastroenteritis and colitis, unspecified; H91.90 Unspecified hearing loss, unspecified ear; I10 Essential (primary) hypertension; Z79.01 Long term (current) use of anticoagulants; Z82.49 Family history of ischemic heart disease and other diseases of the circulatory system; Z87.891 Personal history of nicotine dependence
CPT/HCPCS: 36415; 74022; 74177; 80048; 80053; 81001; 82150; 82550; 83605; 83690; 83735; 85025; 86140; 87040; 93005; 96361; 96365; 96366; 96375; 96376; 99285

== ENCOUNTER → 2019-11-06 | Outpatient (CLI) | payer BC ==
--- NOTE | 2019-11-06 18:08 | CT ---
EXAMINATION TYPE: CT abdomen pelvis w con DATE OF EXAM: 11/06/2019 COMPARISON: 10/21/2019 HISTORY: Follow up Adnominal abscess. CT DLP: 1354.4 mGycm CONTRAST: CT scan of the abdomen and pelvis is performed with Oral Contrast and with IV Contrast, patient injec romelia with 100 mL of Isovue 300. FINDINGS: LUNG BASES-: Improved basilar atelectasis and pleural effusions with only linear atelectasis remainin g. LIVER/GB: Persistent pneumobilia. Cholecystectomy clips are in place. No space occupying hepatic lesi on. Biliary tree is of normal caliber. PANCREAS: Pancreatic drainage catheter is again noted to be in place. No evidence for SPLEEN: No splenic enlargement. No lesion seen. ADRENALS: No nodule. No thickening. KIDNEYS/BLADDER: No hydronephrosis. No nephrolithiasis. No distinct renal mass. Urinary bladder g rossly unremarkable. BOWEL: Left hemiabdominal bilobed collection noted image 53 of 112 measuring 2.2 x 1.9 cm respectivel y versus measurement of 4.3 cm previously. This may reflect persistent interloop abscess. Additional right lower quadrant drainage catheter is noted which resides in a fluid collection measuring 11.2 cm in length versus prior measurement of approximately 20 cm. Again a suspect residual abscess. Overall ascites has improved. Persistent thickened loops of small bowel and large bowel may reflect enteroco litis. GENITAL ORGANS: No gross abnormality. LYMPH NODES: No greater than 1cm abdominal or pelvic lymph nodes are appreciated. AORTA: No significant abnormality. OSSEOUS STRUCTURES: No significant abnormality is seen. OTHER: No significant additional abnormality is seen. IMPRESSION: 1. Interloop fluid collections which may reflect residual abscesses persists although are smaller in size. 2. Persistent pneumobilia with fatty liver. 3. Improving basilar atelectasis and resolution of basilar pleural effusions.
== END | disposition home or self-care (01) ==
LOC: RADCTMAIN 15:29
PROVIDERS: ATTEND Internal Medicine Infectious Disease
DX: R18.8 Other ascites (principal); K76.0 Fatty (change of) liver, not elsewhere classified; K83.8 Other specified diseases of biliary tract; Z88.0 Allergy status to penicillin
CPT/HCPCS: 74177; Q9967

== ENCOUNTER 2019-11-17 01:53 | Inpatient (IN) | payer BC ==
[2019-11-17] MEDS ORDERED: SODIUM CHLORIDE 0.9% 500 ML 500 ML IV STA (02:08)
[2019-11-17] MEDS ORDERED: MORPHINE SULFATE 4 MG/ML SYRINGE IV STA (02:08)
[2019-11-17] MEDS ORDERED: PANTOPRAZOLE 40 MG/10 ML VIAL IVP STA (02:08)
[2019-11-17] MEDS ORDERED: SODIUM CHLORIDE 0.9% 1,000 ML IV STA ×2 (02:08)
[2019-11-17] MEDS ORDERED: ONDANSETRON 4 MG/2 ML VIAL IVP STA (02:08)
--- NOTE | 2019-11-17 02:08 | ED ---
Abdominal Pain HPI - General Chief Complaint: Abdominal Pain Stated Complaint: Stomach cramps Time Seen by Provider: 11/17/19 02:00 Source: patient, RN notes reviewed, old records reviewed Mode of arrival: ambulatory Limitations: no limitations - History of Present Illness Initial Comments: This is a 54-year-old male DF for evaluation of severe abdominal pain cramping severe nausea and vomiting no appetite unable to keep down oral solid foods. No bowel movement 2 days care decreased appetite. He has had surgery at this hospitalwith Dr Uribe,she has a complex surgical history with multiple different procedures most recent procedure about a month ago MD Complaint: abdominal pain -: days(s) Location: epigastric, suprapubic Radiation: epigastric, suprapubic Migration to: no migration Severity: severe Severity scale (1-10): 9 Quality: stabbing, aching Consistency: intermittent Improves With: nothing Worsens With: nothing Associated Symptoms: nausea, anorexia - Related Data Previous Rx's Medication Instructions Recorded Apixaban [Eliquis] 5 mg PO BID #60 tab 10/17/19 Cefepime HCl [Maxipime] 2 gm IV Q12H #28 vial 10/17/19 HYDROcodone/APAP 5-325MG [[place] 1 tab PO QID PRN 3 Days #12 tab 10/17/19 5-325] Isradipine 5 mg PO BID #60 cap 10/17/19 metroNIDAZOLE [Flagyl] 500 mg PO Q8HR #42 tab 10/17/19 Hydrocodone/Acetaminophen [[place] 1 tab PO Q6HR PRN #10 tab 10/24/19 5-325] Allergies Allergy/AdvReac Type Severity Reaction Status Date / Time amoxicillin Allergy Rash/Hives Verified 11/17/19 02:01 Review of Systems ROS Statement: Those systems with pertinent positive or pertinent negative responses have been documented in the HPI. ROS Other: All systems not noted in ROS Statement are negative. Past Medical History Past Medical History: Hearing Disorder / Deafness, Hypertension Additional Past Medical History / Comment(s): HAD A HEART MURMUR WHEN A CHILD- NEVER HEARD ANYTHING AFTER THAT ABOUT IT, SL. HEARLING LOSS YAMILA. EARS. Stents placed in stomach History of Any Multi-Drug Resistant Organisms: None Reported Past Surgical History: Cholecystectomy Additional Past Surgical History / Comment(s): Colonoscopy with benign polyp ectomy Past Anesthesia/Blood Transfusion Reactions: No Reported Reaction Past Psychological History: No Psychological Hx Reported Smoking Status: Former smoker Past Alcohol Use History: Occasional Past Drug Use History: None Reported - Past Family History Father Family Medical History: Coronary Artery Disease (CAD) Additional Family Medical History / Comment(s): Father had 4 vessel CABG Mother Family Medical History: Hypertension General Exam Limitations: no limitations General appearance: alert, in no apparent distress, anxious Head exam: Present: atraumatic, normocephalic, normal inspection Eye exam: Present: normal appearance, PERRL, EOMI. Absent: scleral icterus, conjunctival injection, periorbital swelling ENT exam: Present: normal exam, mucous membranes dry Neck exam: Present: normal inspection. Absent: tenderness, meningismus, lymphadenopathy Respiratory exam: Present: normal lung sounds bilaterally. Absent: respiratory distress, wheezes, rales, rhonchi, stridor Cardiovascular Exam: Present: normal rhythm, tachycardia, normal heart sounds. Absent: systolic murmur, diastolic murmur, rubs, gallop, clicks GI/Abdominal exam: Present: soft, normal bowel sounds. Absent: distended, tenderness, guarding, rebound, rigid Extremities exam: Present: normal inspection, full ROM, normal capillary refill. Absent: tenderness, pedal edema, joint swelling, calf tenderness Back exam: Present: normal inspection Neurological exam: Present: alert, oriented X3, CN II-XII intact Psychiatric exam: Present: normal affect, normal mood Skin exam: Present: warm, dry, intact, normal color. Absent: rash Course Vital Signs 11/17/19 11/17/19 11/17/19 01:59 02:54 03:11 Temperature 97.9 F 98.3 F Pulse Rate 146 H 114 H Respiratory 18 18 Rate Blood Pressure 137/108 144/103 O2 Sat by Pulse 98 98 Oximetry - Reevaluation(s) Reevaluation #1: 11/17/19 03:15 Medical record is reviewed Reevaluation #2: 11/17/19 03:15 Patient is a minimal improvement in pain control Medical Decision Making - Medical Decision Making 51 female DF for evaluation history of abdominal surgery positive ileus here in the ER. patient can be admitted for evaluation of pain nausea vomiting and weakness, ileus on x-ray - Lab Data Result diagrams: 11/17/19 02:31 04/17/20 02:31 Lab Results 11/17/19 11/17/19 11/17/19 Range/Units 02:29 02:31 02:31 WBC 9.9 (3.8-10.6) k/uL RBC 5.47 (4.30-5.90) m/uL Hgb 15.2 D (13.0-17.5) gm/dL Hct 47.8 (39.0-53.0) % MCV 87.4 (80.0-100.0) fL MCH 27.8 (25.0-35.0) pg MCHC 31.8 (31.0-37.0) g/dL RDW 16.1 H (11.5-15.5) % Plt Count 358 (150-450) k/uL Neutrophils % 82 % Lymphocytes % 12 % Monocytes % 3 % Eosinophils % 1 % Basophils % 1 % Neutrophils # 8.1 H (1.3-7.7) k/uL Lymphocytes # 1.2 (1.0-4.8) k/uL Monocytes # 0.3 (0-1.0) k/uL Eosinophils # 0.1 (0-0.7) k/uL Basophils # 0.1 (0-0.2) k/uL Hypochromasia Slight Anisocytosis Slight Sodium 138 (137-145) mmol/L Potassium 4.0 (3.5-5.1) mmol/L Chloride 107 (98-107) mmol/L Carbon Dioxide 22 (22-30) mmol/L Anion Gap 9 mmol/L BUN 7 L (9-20) mg/dL Creatinine 0.58 L (0.66-1.25) mg/dL Est GFR (CKD-EPI)AfAm >90 (>60 ml/min/1.73 sqM) Est GFR (CKD-EPI)NonAf >90 (>60 ml/min/1.73 sqM) Glucose 145 H (74-99) mg/dL Plasma Lactic Acid Rusty (0.7-2.0) mmol/L Calcium 9.4 (8.4-10.2) mg/dL Total Bilirubin 0.6 (0.2-1.3) mg/dL AST 45 (17-59) U/L ALT 22 (4-49) U/L Alkaline Phosphatase 231 H (38-126) U/L Troponin I (0.000-0.034) ng/mL Total Protein 6.2 L (6.3-8.2) g/dL Albumin 3.2 L (3.5-5.0) g/dL Amylase <30 L (30-110) U/L Lipase 80 (23-300) U/L Urine Color Yellow Urine Appearance Cloudy (Clear) Urine pH 6.0 (5.0-8.0) Ur Specific [place] 1.023 (1.001-1.035) Urine Protein 1+ H (Negative) Urine Glucose (UA) Negative (Negative) Urine Ketones Negative (Negative) Urine Blood Negative (Negative) Urine Nitrite Negative (Negative) Urine Bilirubin Negative (Negative) Urine Urobilinogen 3.0 (<2.0) mg/dL Ur Leukocyte Esterase Negative (Negative) Urine RBC 4 (0-5) /hpf Urine WBC 11 H (0-5) /hpf Ur Squamous Epith Cells 1 (0-4) /hpf Calcium Oxalate Crystal Rare H (None) /hpf Hyaline Casts 335 H (0-2) /lpf Urine Mucus Many H (None) /hpf 11/17/19 11/17/19 Range/Units 02:31 02:31 WBC (3.8-10.6) k/uL RBC (4.30-5.90) m/uL Hgb (13.0-17.5) gm/dL Hct (39.0-53.0) % MCV (80.0-100.0) fL MCH (25.0-35.0) pg MCHC (31.0-37.0) g/dL RDW (11.5-15.5) % Plt Count (150-450) k/uL Neutrophils % % Lymphocytes % % Monocytes % % Eosinophils % % Basophils % % Neutrophils # (1.3-7.7) k/uL Lymphocytes # (1.0-4.8) k/uL Monocytes # (0-1.0) k/uL Eosinophils # (0-0.7) k/uL Basophils # (0-0.2) k/uL Hypochromasia Anisocytosis Sodium (137-145) mmol/L Potassium (3.5-5.1) mmol/L Chloride (98-107) mmol/L Carbon Dioxide (22-30) mmol/L Anion Gap mmol/L BUN (9-20) mg/dL Creatinine (0.66-1.25) mg/dL Est GFR (CKD-EPI)AfAm (>60 ml/min/1.73 sqM) Est GFR (CKD-EPI)NonAf (>60 ml/min/1.73 sqM) Glucose (74-99) mg/dL Plasma Lactic Acid Rusty 1.3 (0.7-2.0) mmol/L Calcium (8.4-10.2) mg/dL Total Bilirubin (0.2-1.3) mg/dL AST (17-59) U/L ALT (4-49) U/L Alkaline Phosphatase (38-126) U/L Troponin I <0.012 (0.000-0.034) ng/mL Total Protein (6.3-8.2) g/dL Albumin (3.5-5.0) g/dL Amylase (30-110) U/L Lipase (23-300) U/L Urine Color Urine Appearance (Clear) Urine pH (5.0-8.0) Ur Specific [place] (1.001-1.035) Urine Protein (Negative) Urine Glucose (UA) (Negative) Urine Ketones (Negative) Urine Blood (Negative) Urine Nitrite (Negative) Urine Bilirubin (Negative) Urine Urobilinogen (<2.0) mg/dL Ur Leukocyte Esterase (Negative) Urine RBC (0-5) /hpf Urine WBC (0-5) /hpf Ur Squamous Epith Cells (0-4) /hpf Calcium Oxalate Crystal (None) /hpf Hyaline Casts (0-2) /lpf Urine Mucus (None) /hpf - Radiology Data Radiology results: report reviewed (Chest x-ray and KUB is positive for ileus), image reviewed Disposition Clinical Impression: Ileus, Nausea & vomiting Disposition: ADMITTED IP TO THIS [facility] Condition: Good Is patient prescribed a controlled substance at d/c from ED?: No Referrals: Cj Malloy MD [Primary Care Provider] - 1-2 days
[2019-11-17 02:39] LABS: Anisocytosis Slight; Basophils # (A) 0.1 k/uL (0-0.2); Basophils % (A) 1 %; Eosinophils # (A) 0.1 k/uL (0-0.7); Eosinophils % (A) 1 %; HCT 47.8 % (39.0-53.0); Hypochromasia Slight; Lymphocytes # (A) 1.2 k/uL (1.0-4.8); Lymphocytes % (A) 12 %; MCH 27.8 pg (25.0-35.0); MCHC 31.8 g/dL (31.0-37.0); MCV 87.4 fL (80.0-100.0); Mean Platelet Volume 6.8; Monocytes # (A) 0.3 k/uL (0-1.0); Monocytes % (A) 3 %; Neutrophils # (A) 8.1 k/uL (1.3-7.7); Neutrophils % (A) 82 %; Platelet Count 358 k/uL (150-450); RBC 5.47 m/uL (4.30-5.90); RDW 16.1 % (11.5-15.5); WBC 9.9 k/uL (3.8-10.6)
[2019-11-17 02:40] LABS: Appearance,Urine Cloudy (Clear); Bilirubin,Urine Negative (Negative); Blood,Urine Negative (Negative); Calcium Oxalate Crystals,Urine Rare /hpf; Color,Urine Yellow; Glucose,Urine (UA) Negative (Negative); Hyaline Casts,Urine 335 /lpf (0-2); Ketones,Urine Negative (Negative); Leukocyte Esterase,Urine Negative (Negative); Mucus,Urine Many /hpf; Nitrite,Urine Negative (Negative); Protein,Urine 1+ (Negative); RBC,Urine 4 /hpf (0-5); Specific Gravity,Urine 1.023 (1.001-1.035); Squamous Epithelial Cell,Urine 1 /hpf (0-4); WBC,Urine 11 /hpf (0-5)
--- NOTE | 2019-11-17 02:46 | XR ---
EXAMINATION TYPE: XR chest 1V portable DATE OF EXAM: 11/17/2019 COMPARISON: 08/26/2019 HISTORY: Abdominal pain. Chest pain TECHNIQUE: FINDINGS: Heart and mediastinum are normal. There is some minimal subsegmental atelectasis at the rig ht lung base. There is suboptimal inspiration. Bony thorax is intact. There is no heart failure. IMPRESSION: Mild subsegmental atelectasis. There is overall improved inspiration and aeration of the lungs compared to old exam.
[2019-11-17 02:49] LABS: HGB 15.2 gm/dL (13.0-17.5)
[2019-11-17 02:50] LABS: ALT 22 U/L (4-49); AST 45 U/L (17-59); African American GFR (CKD) >90 (>60 ml/min/1.73 sqM); Albumin 3.2 g/dL (3.5-5.0); Alkaline Phosphatase 231 U/L (38-126); Amylase <30 U/L (30-110); Anion Gap 9 mmol/L; Blood Urea Nitrogen 7 mg/dL (9-20); Calcium 9.4 mg/dL (8.4-10.2); Carbon Dioxide 22 mmol/L (22-30); Chloride 107 mmol/L (98-107); Glucose 145 mg/dL (74-99); Non-African American GFR(CKD) >90 (>60 ml/min/1.73 sqM); Sodium 138 mmol/L (137-145); Total Bilirubin 0.6 mg/dL (0.2-1.3); Total Protein 6.2 g/dL (6.3-8.2)
--- NOTE | 2019-11-17 02:51 | XR ---
EXAMINATION TYPE: XR KUB DATE OF EXAM: 11/17/2019 COMPARISON: 10/20/2019 HISTORY: Abdominal pain TECHNIQUE: 2 views upright FINDINGS: There is pigtail catheter in the pelvis on the right side. There are multiple small bowel f luid levels. There is some dilated small bowel in the upper and lower abdomen. There is air in the bi liary tree probably from reflux. There is left side pigtail stent in the paraspinal region at the lev el of L3-L5. This apparently is in the small bowel evident on the CT scan of 11/06/2019. I see no evide nce of free air. IMPRESSION: Multiple dilated loops of gas and fluid-filled small bowel appears the same or slightly w orse than old exam. No free air. I would consider ileus and mechanical bowel obstruction.
[2019-11-17] MEDS ORDERED: HYDROmorphone 1 MG/ML 1 ML SYRINGE IVP STA (03:05)
[2019-11-17] MEDS ORDERED: ONDANSETRON 4 MG/2 ML VIAL IVP PRN (03:18)
[2019-11-17] MEDS: PANTOPRAZOLE 40 MG/10 ML VIAL IVP SCH (08:56)
[2019-11-17 10:25] VITALS: BMI 27.1
[2019-11-17] MEDS ORDERED: KETOROLAC 30 MG/ML 1 ML VIAL IVP PRN (10:44)
[2019-11-17] MEDS ORDERED: NON FORMULARY DRUG (Cefepime Hcl [Maxipime] 2 GM) IV SCH (10:45)
[2019-11-17] MEDS: HYDROmorphone 1 MG/ML 1 ML SYRINGE IVP PRN ×3 (10:54→19:33)
[2019-11-17] MEDS: SODIUM CHLORIDE 0.9% 1,000 ML IV SCH (10:54)
[2019-11-17] MEDS: CEFEPIME 2 GM in SODIUM CHLORIDE 0.9% 100 ML IVPB SCH ×2 (11:01→20:55)
[2019-11-17] MEDS: metroNIDAZOLE-NS PMX 500 MG in SALINE 1 100ML.BAG IVPB SCH ×2 (12:34→16:59)
--- NOTE | 2019-11-17 13:05 | P.GSHP ---
History of Present Illness H&P Date: 11/17/19 Chief Complaint: abdominal pain CHIEF COMPLAINT: abdominal pain HISTORY OF PRESENT ILLNESS: 54 year old male who presented to the hospital with a chief complaint of abdominal pain. Patient is known to surgical services secondary to history of open cholecystectomy in August 2019. Patient developed a large pancreatic pseudocyst. Patient was transferred to [facility] at that time for further evaluation of his pseudocyst. Patient states he had pseudocyst drained at [facility] and a pigtail drain inserted. He reports being diagnosed with a DVT in his arm at [facility] and was started on Eliquis. Patient was admitted to the hospital from 10/12/2019 until 10/17/2019 secondary to abdominal pain. He was discharged on antibiotics. The patient returned to the hospital and was hospitalized from 10/21/2019 until 10/25/2019 secondary to ileus. Patient has been receiving antibiotics on an outpatient basis per Dr. Hernandez. Patient examined this morning at the bedside with Dr. Rosales. Patient reports abdominal pain is tolerable with current pain medications. He denies passing flatus. No BM. No nausea or vomiting currently. PAST MEDICAL HISTORY: See list. PAST SURGICAL HISTORY: See list. SOCIAL HISTORY: No illicit drug use. REVIEW OF SYSTEMS: CONSTITUTIONAL: Denies fever or chills. HEENT: Denies blurred vision, vision changes, or eye pain. Denies hemoptysis CARDIOVASCULAR: Denies chest pain or pressure. RESPIRATORY: No shortness of breath. GASTROINTESTINAL: Refer to HPI for pertinent findings HEMATOLOGIC: Denies bleeding disorders. GENITOURINARY: Denies any blood in urine. SKIN: Denies pruitis. Denies rash. PHYSICAL EXAM: VITAL SIGNS: Reviewed. GENERAL: Well-developed in no acute distress. HEENT: No sclera icterus. Extraocular movements grossly intact. Moist buccal mucosa. Head is atraumatic, normocephalic. ABDOMEN: Soft. Nondistended. Minimal tenderness. Drainage catheter present with brown output. NEUROLOGIC: Alert and oriented. Cranial nerves II through XII grossly intact. LABORATORY DATA: W BC 9.9. Hemoglobin 15.2. Platelet count 358. IMAGING: -CT abdomen and pelvis completed on 11/06/2019: Interloop collections which may reflect residual abscesses persist although her smaller in size. Persistent pneumobilia with fatty liver. -KUB XR: Multiple dilated loops of gas and fluid-filled small bowel appears the same are slowly worsen old exam. No free air. Possible ileus and mechanical bowel obstruction ASSESSMENT: 1. Ileus 2. History of open cholecystectomy, August 2019 3. History of pancreatic pseudocyst 4. History of DVT, on anticoagulation with Eliquis PLAN: Dr. Hernandez consulted for antibiotic management as patient as been receiving antibiotics outpatient (flagyl and cefepime) Dr. Lopez consulted for medical management Continue abdominal drainage catheter Hold Eliquis. Begin Lovenox 100mg Q12 hours. Will resume Eliquis when patient can tolerate PO intake NPO. Await bowel function. If patient begins passing flatus, will start clear liquid diet tomorrow No surgical intervention recommended at this time Nurse practitioner note has been reviewed by physician. Signing provider agrees with the documented findings, assessment, and plan of care. Past Medical History Past Medical History: Deep Vein Thrombosis (DVT), Hearing Disorder / Deafness, Hypertension, Pulmonary Embolus (PE) Additional Past Medical History / Comment(s): HAD A HEART MURMUR WHEN A CHILD- NEVER HEARD ANYTHING AFTER THAT ABOUT IT, SL. HEARLING LOSS YAMILA. EARS. Stents placed in stomach History of Any Multi-Drug Resistant Organisms: None Reported Past Surgical History: Cholecystectomy Additional Past Surgical History / Comment(s): Colonoscopy with benign polypectomy Past Anesthesia/Blood Transfusion Reactions: No Reported Reaction Past Psychological History: No Psychological Hx Reported Additional Psychological History / Comment(s): Pt resides with his spouse. He is independent. Smoking Status: Current some day smoker Past Alcohol Use History: Occasional Additional Past Alcohol Use History / Comment(s): Pt smokes occasional cigar during summer months. Pt states he drinks alcohol on the weekends only and not more than 14 drinks. Past Drug Use History: None Reported - Past Family History Father Family Medical History: Coronary Artery Disease (CAD) Additional Family Medical History / Comment(s): Father had 4 vessel CABG Mother Family Medical History: Hypertension Medications and Allergies Home Medications Medication Instructions Recorded Confirmed Type Apixaban [Eliquis] 5 mg PO BID #60 tab 10/17/19 11/17/19 Rx Cefepime HCl [Maxipime] 2 gm IV Q12H #28 vial 10/17/19 11/17/19 Rx Isradipine 5 mg PO BID #60 cap 10/17/19 11/17/19 Rx metroNIDAZOLE [Flagyl] 500 mg PO Q8HR #42 tab 10/17/19 11/17/19 Rx Hydrocodone/Acetaminophen [[place] 1 tab PO Q6HR PRN #10 tab 10/24/19 11/17/19 Rx 5-325] Allergies Allergy/AdvReac Type Severity Reaction Status Date / Time amoxicillin Allergy Rash/Hives Verified 11/17/19 10:01 Surgical - Exam Vital Signs Temp Pulse Resp BP Pulse Ox 97.9 F 146 H 18 137/108 98 11/17/19 01:59 11/17/19 01:59 11/17/19 01:59 11/17/19 01:59 11/17/19 01:59 Results - Labs 11/17/19 02:31 11/17/19 02:31 Abnormal Lab Results - Last 24 Hours (Table) 11/17/19 11/17/19 11/17/19 Range/Units 02:29 02:31 02:31 RDW 16.1 H (11.5-15.5) % Neutrophils # 8.1 H (1.3-7.7) k/uL BUN 7 L (9-20) mg/dL Creatinine 0.58 L (0.66-1.25) mg/dL Glucose 145 H (74-99) mg/dL Alkaline Phosphatase 231 H (38-126) U/L Total Protein 6.2 L (6.3-8.2) g/dL Albumin 3.2 L (3.5-5.0) g/dL Amylase <30 L (30-110) U/L Urine Protein 1+ H (Negative) Urine WBC 11 H (0-5) /hpf Calcium Oxalate Crystal Rare H (None) /hpf Hyaline Casts 335 H (0-2) /lpf Urine Mucus Many H (None) /hpf Microbiology - Last 24 Hours (Table) 11/17/19 02:29 Urine Culture - Preliminary Urine,Voided Diabetes panel 11/17/19 Range/Units 02:31 Sodium 138 (137-145) mmol/L Potassium 4.0 (3.5-5.1) mmol/L Chloride 107 (98-107) mmol/L Carbon Dioxide 22 (22-30) mmol/L BUN 7 L (9-20) mg/dL Creatinine 0.58 L (0.66-1.25) mg/dL Glucose 145 H (74-99) mg/dL Calcium 9.4 (8.4-10.2) mg/dL AST 45 (17-59) U/L ALT 22 (4-49) U/L Alkaline Phosphatase 231 H (38-126) U/L Total Protein 6.2 L (6.3-8.2) g/dL Albumin 3.2 L (3.5-5.0) g/dL Calcium panel 11/17/19 Range/Units 02:31 Calcium 9.4 (8.4-10.2) mg/dL Albumin 3.2 L (3.5-5.0) g/dL Pituitary panel 11/17/19 Range/Units 02:31 Sodium 138 (137-145) mmol/L Potassium 4.0 (3.5-5.1) mmol/L Chloride 107 (98-107) mmol/L Carbon Dioxide 22 (22-30) mmol/L BUN 7 L (9-20) mg/dL Creatinine 0.58 L (0.66-1.25) mg/dL Glucose 145 H (74-99) mg/dL Calcium 9.4 (8.4-10.2) mg/dL Adrenal panel 11/17/19 Range/Units 02:31 Sodium 138 (137-145) mmol/L Potassium 4.0 (3.5-5.1) mmol/L Chloride 107 (98-107) mmol/L Carbon Dioxide 22 (22-30) mmol/L BUN 7 L (9-20) mg/dL Creatinine 0.58 L (0.66-1.25) mg/dL Glucose 145 H (74-99) mg/dL Calcium 9.4 (8.4-10.2) mg/dL Total Bilirubin 0.6 (0.2-1.3) mg/dL AST 45 (17-59) U/L ALT 22 (4-49) U/L Alkaline Phosphatase 231 H (38-126) U/L Total Protein 6.2 L (6.3-8.2) g/dL Albumin 3.2 L (3.5-5.0) g/dL
[2019-11-17] MEDS ORDERED: metroNIDAZOLE 500 MG TAB PO SCH (16:00)
--- NOTE | 2019-11-17 19:44 | P.CONS ---
History of Present Illness - Reason for Consult Consult date: 11/17/19 Medical management Requesting physician: Robin Rosales - Chief Complaint Abdominal cramping - History of Present Illness TT is a pleasant 54-year-old Patient of Dr. Malloy. Patient for about 2 years has had episodes of upper abdominal epigastric pain 07/11/2019-Admitted with-acute cholecystitis with choledocholithiasis, acute gallstone pancreatitis. patient clinically deteriorated and was transferred to the ICU on July 13. Patient intubated.went into renal failure. Started hemodialysis. Patient underwent open cholecystectomy with gallstone removal on 07/17/2019. extubated July 21. Patient had a biliary leak had a biliary stent placed on August 04. On August 06 had a computed tomography scan showing large pseudocyst. Repeat computed tomography scan of the abdomen was done - Showed enlarging pseudocyst. Gone from 20 cm the 24 cm. patient was transferred to [facility].Patient was there for about a month. Eventually the pseudocyst was drained and also has patient has a pigtail catheter in the abdomen. He also then developed a DVT in the right upper extremity is put on eliquis. Patient was then hospitalized from October 11 through October 16. Computed tomography scan showed a fluid collection felt to be abscess again decided to manage the patient conservatively and patient was discharged on by mouth Flagyl and IV cefepime. Patient was then admitted from October 20 through October 24 with ileus.-Discharged on IV cefepime and Flagyl. Patient now presents with increasing abdominal cramping on Wednesday. According bit better on Wednesday to get significant cramping on . That was yesterday. Also nausea vomiting. No obvious fever or chills. Patient's bowel movements are variable. Review of systems: GEN.: Tired EYES: None HEENT: None NECK: None RESPIRATORY: None CARDIOVASCULAR: None GASTROINTESTINAL: As above GENITOURINARY: None MUSCULOSKELETAL: None LYMPHATICS: None HEMATOLOGICAL: None PSYCHIATRY: None NEUROLOGICAL: None Past medical history to include: Acute cholecystitis with choledocholithiasis, gallstone pancreatitis eating 2 cholecystectomy, large pseudocyst that was drained, resulting secondary intra- abdominal abscess, right upper extremity DVT Social history: Previously Drinks about 12 pack over the weekend. 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 . Occasional cigars Physical examination: VITAL SIGNS: 97.9, 114, 18, 144/103, 98% on room air GENERAL: BMI 27, laying in bed, awake EYES: Pupils equal. Conjunctiva normal. HEENT: External appearance of nose and ears normal, oral cavity grossly normal. NECK: JVD not raised; masses not palpable. HEART: First and second heart sounds are normal; no edema. LUNGS: Respiratory rate normal; clear to auscultation. ABDOMEN: Soft, mild abdominal tenderness, no guarding or rigidity, liver spleen not palpable, no masses palpable. Pigtail in place PSYCH: Alert and oriented x3; mood and affect normal. NEUROLOGICAL: Cranial nerves grossly intact; no facial asymmetry, power and sensation grossly intact. LYMPHATICS: No lymph nodes palpable in the axilla and neck INVESTIGATIONS, reviewed in the clinical context: White count 9.9 hemoglobin 15.2 platelets 358 pressure for bun 7 creatinine 0.58 Lipase 80 Abdominal x-ray personally reviewed by me-multiple dilated loops of gas and fluid-filled small bowel possibly slightly worse than the previous exam Chest x-ray film personally reviewed by me-some effort levels in the abdomen lung mai are clear Assessment: -History of acute cholecystitis with choledocholithiasis, gallstone pancreatitis. Patient status post cholecystectomy with gallstone removal. Subsequently a large pseudocyst. That was drained. Subsequently intra- abdominal abscess for which patient did receive IV cefepime and Flagyl. -Now presenting with bowel obstruction and multiple air-fluid levels abdominal cramping nausea vomiting. -Hypokalemia -Right upper extremity DVT Plan: Patient be made nothing by mouth. No surgical intervention. Patient to continue with IV Flagyl and cefepime. Resume home medications. When by mouth intake starts. Surgery put the patient to subcu [facility] in the meantime. Thank you Dr. Rosales Past Medical History Past Medical History: Deep Vein Thrombosis (DVT), Hearing Disorder / Deafness, Hypertension, Pulmonary Embolus (PE) Additional Past Medical History / Comment(s): HAD A HEART MURMUR WHEN A CHILD- NEVER HEARD ANYTHING AFTER THAT ABOUT IT, SL. HEARLING LOSS YAMILA. EARS. Stents placed in stomach History of Any Multi-Drug Resistant Organisms: None Reported Past Surgical History: Cholecystectomy Additional Past Surgical History / Comment(s): Colonoscopy with benign polypectomy Past Anesthesia/Blood Transfusion Reactions: No Reported Reaction Past Psychological History: No Psychological Hx Reported Additional Psychological History / Comment(s): Pt resides with his spouse. He is independent. Smoking Status: Current some day smoker Past Alcohol Use History: Occasional Additional Past Alcohol Use History / Comment(s): Pt smokes occasional cigar during summer months. Pt states he drinks alcohol on the weekends only and not more than 14 drinks. Past Drug Use History: None Reported - Past Family History Father Family Medical History: Coronary Artery Disease (CAD) Additional Family Medical History / Comment(s): Father had 4 vessel CABG Mother Family Medical History: Hypertension Medications and Allergies Home Medications Medication Instructions Recorded Confirmed Type Apixaban [Eliquis] 5 mg PO BID #60 tab 10/17/19 11/17/19 Rx Cefepime HCl [Maxipime] 2 gm IV Q12H #28 vial 10/17/19 11/17/19 Rx Isradipine 5 mg PO BID #60 cap 10/17/19 11/17/19 Rx metroNIDAZOLE [Flagyl] 500 mg PO Q8HR #42 tab 10/17/19 11/17/19 Rx Hydrocodone/Acetaminophen [[place] 1 tab PO Q6HR PRN #10 tab 10/24/19 11/17/19 Rx 5-325] Allergies Allergy/AdvReac Type Severity Reaction Status Date / Time amoxicillin Allergy Rash/Hives Verified 11/17/19 10:01 Physical Exam Vitals: Vital Signs Temp Pulse Pulse Resp BP BP Pulse Ox 11/17/19 04:58 98.3 F 111 H 16 127/87 94 L 11/17/19 03:57 98.6 F 109 H 20 148/102 97 11/17/19 03:25 98.3 F 112 H 18 140/97 97 11/17/19 03:11 98.3 F 11/17/19 02:54 114 H 18 144/103 98 11/17/19 01:59 97.9 F 146 H 18 137/108 98 Intake and Output 11/16/19 11/17/19 11/17/19 22:59 06:59 14:59 Other: Weight 90.718 kg 90.718 kg Results CBC & Chem 7: 11/17/19 02:31 11/17/19 02:31 Labs: Abnormal Lab Results - Last 24 Hours (Table) 11/17/19 11/17/19 11/17/19 Range/Units 02:29 02:31 02:31 RDW 16.1 H (11.5-15.5) % Neutrophils # 8.1 H (1.3-7.7) k/uL BUN 7 L (9-20) mg/dL Creatinine 0.58 L (0.66-1.25) mg/dL Glucose 145 H (74-99) mg/dL Alkaline Phosphatase 231 H (38-126) U/L Total Protein 6.2 L (6.3-8.2) g/dL Albumin 3.2 L (3.5-5.0) g/dL Amylase <30 L (30-110) U/L Urine Protein 1+ H (Negative) Urine WBC 11 H (0-5) /hpf Calcium Oxalate Crystal Rare H (None) /hpf Hyaline Casts 335 H (0-2) /lpf Urine Mucus Many H (None) /hpf Microbiology - Last 24 Hours (Table) 11/17/19 02:29 Urine Culture - Preliminary Urine,Voided
[2019-11-17] MEDS: ENOXAPARIN 100 MG/ML SYRINGE SQ SCH (21:16)
[2019-11-18] MEDS: SODIUM CHLORIDE 0.9% 1,000 ML IV SCH ×3 (00:05→21:22)
[2019-11-18] MEDS: metroNIDAZOLE-NS PMX 500 MG in SALINE 1 100ML.BAG IVPB SCH ×2 (00:05→07:49)
--- NOTE | 2019-11-18 01:20 | CONS ---
CONSULTATION DATE OF SERVICE: 11/17/2019 REASON FOR CONSULTATION: Abdominal abscess. HISTORY OF PRESENT ILLNESS: The patient is a 54-year-old male with a past medical history significant for pancreatitis in this patient, status post open cholecystectomy. Patient did have some large pancreatic pseudocyst for which the patient was transferred to [facility]. The patient did have endoscopic drainage of the pseudocyst and also had a pigtail catheter which had to be drained. He has been recently admitted twice in this facility and was diagnosed with abdominal abscess. The patient has been initially treated with cefepime and Flagyl. However, the patient did have side effects from his oral Flagyl. Antibiotic was recently switched to the Invanz 1 g daily which the patient receiving at home. He also had a recent CT abdominal pelvis which shows overall improvement in his abscess. The patient is now presenting to the ER with chief complaints of abdominal pain and nausea that initially started on Wednesday night. However, morning, he did have some improvement in his symptoms. However, his symptoms continued to get worse. Has been complaining of crampy abdominal pain and feeling nauseated and unable to keep anything down. The patient had a bowel movement. Denies any bowel for 2 days and overall output in the drainage catheter has decreased. With these symptoms, the patient was evaluated by the ER physician. On arrival to the ER, the patient has been afebrile. His white count was normal. The patient did have acute abdominal series which was suggestive of multiple dilated bowel loops suggestive of ileus versus mechanical obstruction. The patient has been admitted to the hospital. He was started on cefepime and Flagyl. I was asked to see the patient for continued management of his antibiotic therapy. Surgery has made the patient NPO. REVIEW OF SYSTEMS: Positive points have been mentioned in HPI. Rest of the systems are negative. PAST MEDICAL HISTORY: Gallstone pancreatitis, pancreatic pseudocyst, abdominal abscess, hypertension. PAST SURGICAL HISTORY: Open cholecystectomy, colonoscopy and polypectomy, drainage of the abdominal abscess. SOCIAL HISTORY: Remote history of smoking. Occasionally drinks. No drug use. FAMILY HISTORY: Father with history of coronary artery disease. ALLERGIES: AMOXICILLIN, HOWEVER has tolerated cephalosporins without any problem. MEDICATIONS: The patient is covered cefepime 2 grams q.12, Lovenox, Dilaudid, Toradol, metronidazole, Zofran, Protonix, and IV fluid. PHYSICAL EXAMINATION: Blood pressure 130/89 with a pulse of 103, temperature 98.3. He is 92% on room air. GENERAL DESCRIPTION: The patient is a middle-aged male lying in bed in no distress. No tachypnea or accessory muscle of respiration use. HEENT: Examination shows no pallor or scleral icterus. Oral mucosa membrane is dry. No pharyngeal erythema or thrush. Neck: Trachea central. No thyromegaly. LUNGS: Unlabored breathing. Clear to auscultation anteriorly with no wheeze or crackles. Heart S1, S2. Regular rate and rhythm. ABDOMEN: Soft. No tenderness. MARICHUY drainage with minimal drainage in the bag. EXTREMITIES: No edema of the feet. SKIN examination: No rash or mass palpable. Neurological: Patient is awake, alert, oriented times three. Mood and affect normal. LABS: Hemoglobin is 15.2, white count 9.9, BUN of 7, creatinine 0.58. DIAGNOSTIC IMPRESSION AND PLAN: Patient with a history of abdominal abscess in this patient who is status post CT- guided drainage at the different hospital with multiple admissions to the area, this hospital for ileus and IV antibiotic therapy. As the patient has been tolerating the outpatient setting in the form of Invanz. Now admitted with possible ileus, not behaving as any worsening abscess with no fever or elevated white count. PLAN: 1. Antibiotic will be switched back to Invanz 1 g daily. 2. We will discuss with surgery timing for a repeat CT abdominal pelvis. 3. We will follow on clinical condition and culture to further adjust medication if needed. Thank you for this consultation. Will follow this patient with you. MMODL / IJN: [id number] /
[2019-11-18] MEDS: PANTOPRAZOLE 40 MG/10 ML VIAL IVP SCH (07:49)
[2019-11-18] MEDS: ENOXAPARIN 100 MG/ML SYRINGE SQ SCH ×2 (07:49→21:04)
[2019-11-18] MEDS: CEFEPIME 2 GM in SODIUM CHLORIDE 0.9% 100 ML IVPB SCH (09:17)
[2019-11-18] MEDS: HYDROmorphone 1 MG/ML 1 ML SYRINGE IVP PRN ×3 (09:22→21:04)
--- NOTE | 2019-11-18 10:29 | P.PN ---
Progress Note - Text Progress Note Date: 11/18/19 The patient feels better. He states he has less abdominal pain. Several small amount of flatus. He currently is hungry. On exam his vital signs are stable. His abdomen is soft. There is purulent drainage in his radiologic pelvic drain Resolving ileus, pelvic abscess. Patient will have his diet advanced today.
[2019-11-18] MEDS: ERTAPENEM 1 GM in SODIUM CHLORIDE 0.9% 50 ML IVPB SCH (16:00)
--- NOTE | 2019-11-18 18:23 | P.PN ---
Progress Note - Text Progress Note Date: 11/18/19 - Chief Complaint Abdominal cramping History of presenting complaint: Natalie is a pleasant 54-year-old Patient of Dr. Malloy. Patient for about 2 years has had episodes of upper abdominal epigastric pain 07/11/2019-Admitted with-acute cholecystitis with choledocholithiasis, acute gallstone pancreatitis. patient clinically deteriorated and was transferred to the ICU on July 13. Patient intubated.went into renal failure. Started hemodialysis. Patient underwent open cholecystectomy with gallstone removal on 07/17/2019. extubated July 21. Patient had a biliary leak had a biliary stent placed on August 04. On August 06 had a computed tomography scan showing large pseudocyst. Repeat computed tomography scan of the abdomen was done - Showed enlarging pseudocyst. Gone from 20 cm the 24 cm. patient was transferred to [facility].Patient was there for about a month. Eventually the pseudocyst was drained and also has patient has a pigtail catheter in the abdomen. He also then developed a DVT in the right upper extremity is put on eliquis. Patient was then hospitalized from October 11 through October 16. Computed tomography scan showed a fluid collection felt to be abscess again decided to manage the patient conservatively and patient was discharged on by mouth Flagyl and IV cefepime. Patient was then admitted from October 20 through October 24 with ileus.-Discharged on IV cefepime and Flagyl. He recently switched over to IV Invanz as not able to tolerate Flagyl. Patient now presents with increasing abdominal cramping on Wednesday. According bit better on Wednesday to get significant cramping on . That was yesterday. Also nausea vomiting. No obvious fever or chills. Patient's bowel movements are variable. Admitted with-bowel obstruction and severe hypokalemia. Today-up is a bit more relaxed. Her nausea vomiting. Pain and cramping better. Review of systems: Was done for constitutional, cardiovascular, GI, pulmonary. relevant finding as above Active Medications Enoxaparin Sodium (Lovenox) 100 mg SQ Q12HR [facility]BEY Last Admin: 11/18/19 07:49 Dose: 100 mg Documented by: Hydromorphone HCl (Dilaudid) 1 mg IVP Q4HR PRN PRN Reason: Pain Last Admin: 04/18/20 15:59 Dose: 1 mg Documented by: Sodium Chloride (Saline 0.9%) 1,000 mls @ 75 mls/hr IV .[id number] [facility] Last Admin: 11/18/19 16:02 Dose: 75 mls/hr Documented by: Ertapenem 1 gm/ Sodium (Chloride) 50 mls @ 100 mls/hr IVPB DAILY [facility]; Protocol Last Admin: 11/18/19 16:00 Dose: 100 mls/hr Documented by: Ketorolac Tromethamine (Toradol) 15 mg IVP Q6HR PRN PRN Reason: Pain Stop: 11/21/19 10:44 Ondansetron HCl (Zofran) 4 mg IVP Q6HR PRN PRN Reason: Nausea And Vomiting Pantoprazole Sodium (Protonix) 40 mg IVP DAILY [facility] Last Admin: 11/18/19 07:49 Dose: 40 mg Documented by: Physical examination: VITAL SIGNS: 98.1, 103, 16, 130/88, 96% on room air GENERAL: BMI 27, laying in bed, awake EYES: Pupils equal. Conjunctiva normal. HEENT: External appearance of nose and ears normal, oral cavity grossly normal. NECK: JVD not raised; masses not palpable. HEART: First and second heart sounds are normal; no edema. LUNGS: Respiratory rate normal; clear to auscultation. ABDOMEN: Soft, mild abdominal tenderness, no guarding or rigidity, liver spleen not palpable, no masses palpable. Pigtail in place PSYCH: Alert and oriented x3; mood and affect normal. INVESTIGATIONS, reviewed in the clinical context: White count 9.9 hemoglobin 15.2 platelets 358 pressure for bun 7 creatinine 0.58 Lipase 80 Abdominal x-ray personally reviewed by me-multiple dilated loops of gas and fluid-filled small bowel possibly slightly worse than the previous exam Chest x-ray film personally reviewed by me-some effort levels in the abdomen lung mai are clear Assessment: -History of acute cholecystitis with choledocholithiasis, gallstone pancreatitis. Patient status post cholecystectomy with gallstone removal. Subsequently a large pseudocyst. That was drained. Subsequently intra-abdo alexa abscess for which patient did receive IV cefepime and Flagyl. -Now presenting with bowel obstruction and multiple air-fluid levels abdominal cramping nausea vomiting. -Hypokalemia -Right upper extremity DVT Plan: Patient is on IV Invanz. Advance to full liquid diet by surgery. Other medications to continue. Also getting IV fluids. Encouraged to ambulate. Thank you Dr. Rosales
--- NOTE | 2019-11-18 23:49 | PN ---
PROGRESS NOTE DATE OF SERVICE: 11/18/2019 REASON FOR FOLLOWUP: Abdominal abscess. INTERVAL HISTORY: The patient is currently afebrile. He has been breathing comfortably. Denies having any chest pain, cough. No further vomiting. He did have small bowel movement today. PHYSICAL EXAMINATION: Blood pressure 126/83 with a pulse of 109, temperature 98. He is 98% on room air. General description is a middle-aged male lying in bed in no distress. Respiratory system: Unlabored breathing. Decreased breath sounds in the bases. No wheeze. HEART: S1, S2. Regular rate and rhythm. Abdomen soft, no tenderness. LABS: No new labs have been obtained today. DIAGNOSTIC IMPRESSION AND PLAN: Patient with abdominal abscess in this patient who did have a complicated history with history of gallstone pancreatitis and pancreatic pseudocyst and drainage of abdominal abscess. Patient antibiotic adjusted to Invanz to continue. We will discuss the for the CT and monitor clinical course closely. MMODL / IJN: [id number] /
[2019-11-19] MEDS: HYDROmorphone 1 MG/ML 1 ML SYRINGE IVP PRN ×2 (05:27→15:03)
[2019-11-19 06:59] LABS: HCT 36.5 % (39.0-53.0); Hypochromasia Slight; MCH 28.2 pg (25.0-35.0); MCHC 31.8 g/dL (31.0-37.0); MCV 88.7 fL (80.0-100.0); Mean Platelet Volume 7.1; Platelet Count 208 k/uL (150-450); RBC 4.12 m/uL (4.30-5.90); RDW 15.8 % (11.5-15.5); WBC 3.6 k/uL (3.8-10.6)
[2019-11-19 07:01] LABS: HGB 11.6 gm/dL (13.0-17.5)
[2019-11-19 07:10] LABS: African American GFR (CKD) >90 (>60 ml/min/1.73 sqM); Anion Gap 3 mmol/L; Blood Urea Nitrogen 5 mg/dL (9-20); Calcium 7.9 mg/dL (8.4-10.2); Carbon Dioxide 26 mmol/L (22-30); Chloride 111 mmol/L (98-107); Glucose 110 mg/dL (74-99); Non-African American GFR(CKD) >90 (>60 ml/min/1.73 sqM); Potassium 2.8 mmol/L (3.5-5.1); Sodium 140 mmol/L (137-145)
[2019-11-19] MEDS: ENOXAPARIN 100 MG/ML SYRINGE SQ SCH ×2 (07:54→21:26)
[2019-11-19] MEDS: ERTAPENEM 1 GM in SODIUM CHLORIDE 0.9% 50 ML IVPB SCH (07:55)
[2019-11-19] MEDS ORDERED: Potassium Replacement Protocol 1 EACH MISC MISCELLANE PRN (08:20)
[2019-11-19] MEDS: POTASSIUM CHLORIDE ER 20 MEQ TAB.ER PO SCH ×5 (09:30→21:25)
--- NOTE | 2019-11-19 13:33 | P.PN ---
Progress Note - Text Progress Note Date: 11/19/19 The patient resting comfortably in bed. He is tolerating a diet. On exam is lesser stable. His abdomen soft. Status post resolving ileus. Patient continued to have purulent drainage from his MARICHUY drain. Patient will continue IV antibiotic. Despite discharged home tomorrow.
[2019-11-19] MEDS: SODIUM CHLORIDE 0.9% 1,000 ML IV SCH ×2 (16:12→21:26)
--- NOTE | 2019-11-19 18:05 | P.PN ---
Progress Note - Text Progress Note Date: 11/19/19 - Chief Complaint Abdominal cramping History of presenting complaint: Natalie is a pleasant 54-year-old Patient of Dr. Malloy. Patient for about 2 years has had episodes of upper abdominal epigastric pain 07/11/2019-Admitted with-acute cholecystitis with choledocholithiasis, acute gallstone pancreatitis. patient clinically deteriorated and was transferred to the ICU on July 13. Patient intubated.went into renal failure. Started hemodialysis. Patient underwent open cholecystectomy with gallstone removal on 07/17/2019. extubated July 21. Patient had a biliary leak had a biliary stent placed on August 04. On August 06 had a computed tomography scan showing large pseudocyst. Repeat computed tomography scan of the abdomen was done - Showed enlarging pseudocyst. Gone from 20 cm the 24 cm. patient was transferred to [facility].Patient was there for about a month. Eventually the pseudocyst was drained and also has patient has a pigtail catheter in the abdomen. He also then developed a DVT in the right upper extremity is put on eliquis. Patient was then hospitalized from October 11 through October 16. Computed tomography scan showed a fluid collection felt to be abscess again decided to manage the patient conservatively and patient was discharged on by mouth Flagyl and IV cefepime. Patient was then admitted from October 20 through October 24 with ileus.-Discharged on IV cefepime and Flagyl. He recently switched over to IV Invanz as not able to tolerate Flagyl. Patient now presents with increasing abdominal cramping on Wednesday. According bit better on Wednesday to get significant cramping on . That was yesterday. Also nausea vomiting. No obvious fever or chills. Patient's bowel movements are variable. Admitted with-bowel obstruction and severe hypokalemia. Today-advanced to full liquid diet yesterday. Abdominal pain much better. No nausea vomiting. Has been up to the bathroom. Review of systems: Was done for constitutional, cardiovascular, GI, pulmonary. relevant finding as above Active Medications Enoxaparin Sodium (Lovenox) 100 mg SQ Q12HR OBEY Last Admin: 11/19/19 07:54 Dose: 100 mg Documented by: Hydromorphone HCl (Dilaudid) 1 mg IVP Q4HR PRN PRN Reason: Pain Last Admin: 11/19/19 15:03 Dose: 1 mg Documented by: Sodium Chloride (Saline 0.9%) 1,000 mls @ 75 mls/hr IV .[id number] [facility] Last Admin: 11/19/19 16:12 Dose: Not Given Documented by: Ertapenem 1 gm/ Sodium (Chloride) 50 mls @ 100 mls/hr IVPB DAILY [facility]; Protocol Last Admin: 11/19/19 07:55 Dose: 100 mls/hr Documented by: Ketorolac Tromethamine (Toradol) 15 mg IVP Q6HR PRN PRN Reason: Pain Stop: 11/21/19 10:44 Miscellaneous Information (Potassium Per Protocol) 1 each MISCELLANE DAILY PRN; Protocol PRN Reason: Per Protocol Ondansetron HCl (Zofran) 4 mg IVP Q6HR PRN PRN Reason: Nausea And Vomiting Physical examination: VITAL SIGNS: 97.8, 74, 17, 129/82, 98% on room air GENERAL: Sitting up in the bed, awake EYES: Pupils equal. Conjunctiva normal. HEENT: External appearance of nose and ears normal, oral cavity grossly normal. NECK: JVD not raised; masses not palpable. HEART: First and second heart sounds are normal; no edema. LUNGS: Respiratory rate normal; clear to auscultation. ABDOMEN: Soft, mild abdominal tenderness, no guarding or rigidity, liver spleen not palpable, no masses palpable. Pigtail in place PSYCH: Alert and oriented x3; mood and affect normal. INVESTIGATIONS, reviewed in the clinical context: White count 3.6 hemoglobin 11.6 potassium 2.8 creatinine 0.55 Previous testing White count 9.9 hemoglobin 15.2 platelets 358 pressure for bun 7 creatinine 0.58 Lipase 80 Abdominal x-ray personally reviewed by me-multiple dilated loops of gas and fluid-filled small bowel possibly slightly worse than the previous exam Chest x-ray film personally reviewed by me-some effort levels in the abdomen lung mai are clear Assessment: -History of acute cholecystitis with choledocholithiasis, gallstone pancreatitis. Patient status post cholecystectomy with gallstone removal. Subsequently a large pseudocyst. That was drained. Subsequently intra- abdominal abscess for which patient did receive IV cefepime and Flagyl. -Now presenting with bowel obstruction and multiple air-fluid levels abdominal cramping nausea vomiting. -Hypokalemia-severe -Right upper extremity DVT, currently on Lovenox -Normocytic anemia-to drop of hemoglobin is from hemoconcentration no Juju blood loss. Plan: Patient is on IV Invanz. On full liquid diet. Replace potassium. Thank you Dr. Rosales
[2019-11-20] MEDS: HYDROmorphone 1 MG/ML 1 ML SYRINGE IVP PRN ×2 (00:44→09:02)
--- NOTE | 2019-11-20 03:34 | PN ---
PROGRESS NOTE DATE OF SERVICE: 11/19/2019 REASON FOR FOLLOWUP: Abdominal abscess. INTERVAL HISTORY: The patient is currently afebrile. He has been breathing comfortably. His abdominal pain has improved. No nausea, no vomiting. He has been tolerating his diet and did have a bowel movement. PHYSICAL EXAMINATION: Blood pressure 129/82 with a pulse of 74, temperature 97.8. He is 98% on room air. General description is a middle-aged male lying in bed in no distress. RESPIRATORY SYSTEM: Unlabored breathing, clear to auscultation anteriorly. HEART: S1, S2. Regular rate and rhythm. ABDOMEN: Soft, no tenderness. LABS: Hemoglobin is 11.6, white count 3.6, BUN of 5 creatinine 0.55. DIAGNOSTIC IMPRESSION AND PLAN: Patient with complicated abdominal history and history of abdominal abscess status post drainage in the hospital likely with ileus that seems to have resolved with conservative treatment. The patient was scheduled to have a CAT scan tomorrow in the outpatient setting will be ordered for tomorrow. Continue with the Invanz and monitor clinical course closely. MMODL / IJN: [id number] /
[2019-11-20 06:45] LABS: African American GFR (CKD) >90 (>60 ml/min/1.73 sqM); Anion Gap 2 mmol/L; Blood Urea Nitrogen 4 mg/dL (9-20); Carbon Dioxide 26 mmol/L (22-30); Chloride 111 mmol/L (98-107); Glucose 93 mg/dL (74-99); Non-African American GFR(CKD) >90 (>60 ml/min/1.73 sqM); Potassium 4.2 mmol/L (3.5-5.1); Sodium 139 mmol/L (137-145)
[2019-11-20] MEDS: IOPAMIDOL CONTRAST (ORAL USE) VIAL PO PRN ×2 (07:57→08:59)
[2019-11-20] MEDS: ENOXAPARIN 100 MG/ML SYRINGE SQ SCH (07:57)
[2019-11-20] MEDS: ERTAPENEM 1 GM in SODIUM CHLORIDE 0.9% 50 ML IVPB SCH (08:01)
--- NOTE | 2019-11-20 10:06 | CT ---
EXAMINATION TYPE: CT abdomen pelvis w con DATE OF EXAM: 11/20/2019 COMPARISON: 11/06/2019 HISTORY: Abdominal abscess follow uo CT DLP: 1277.20 mGycm CONTRAST: CT scan of the abdomen and pelvis is performed with Oral Contrast and with IV Contrast, patient injec romelia with 100 ml mL of Isovue 300. FINDINGS: LUNG BASES-: Small left pleural effusion with mild basilar atelectasis stable. LIVER/GB: The gallbladder is surgically absent. Biliary stent present. No space occupying hepatic l esion. Biliary tree is of normal caliber. Persistent hepatic steatosis with pneumobilia. PANCREAS: No inflammation. No distinct mass. SPLEEN: No splenic enlargement. No lesion seen. ADRENALS: No nodule. No thickening. KIDNEYS/BLADDER: No hydronephrosis. No nephrolithiasis. No distinct renal mass. Urinary bladder g rossly unremarkable. BOWEL: Left hemiabdominal bilobed collection noted image 56 of 115 measuring 2.8 cm in total versus c omponent measuring 2.2 and 1.9 cm previously. Suspect improving interloop abscess. Additional right l ower quadrant drainage catheter is noted which resides in a fluid collection measuring 8.6 cm in grea test dimension versus 11.2 cm previously. Again suspect residual abscess. Persistent interloop ascit es. Persistent thickened loops of small bowel and large bowel may reflect enterocolitis. GENITAL ORGANS: No gross abnormality. LYMPH NODES: No greater than 1cm abdominal or pelvic lymph nodes are appreciated. AORTA: No significant abnormality. OSSEOUS STRUCTURES: No significant abnormality is seen. OTHER: No significant additional abnormality is seen. IMPRESSION: 1. Persistent abscess collections however have diminished in size in the interval. 2. Persistent but progressive wall thickening throughout the colon. Correlate for infectious or infla mmatory colitis. 3. Persistent pneumobilia and hepatic steatosis. 4. Small left-sided pleural effusion.
[2019-11-20] MEDS: SODIUM CHLORIDE 0.9% 1,000 ML IV SCH (11:18)
[2019-11-20 11:29] VITALS: BP 120/84; PULSE 99; RESP 18; TEMP 96.3
--- NOTE | 2019-11-20 15:07 | PN ---
PROGRESS NOTE DATE OF SERVICE: 11/20/2019 REASON FOR FOLLOWUP: Abdominal abscess. INTERVAL HISTORY: The patient is currently afebrile. Patient has been breathing comfortably. Abdominal pain has improved, denies having any nausea, vomiting, or any treatable diarrhea. PHYSICAL EXAMINATION: Blood pressure 120/84 with a pulse of 99, temperature 96.8. He is 98% on room air. General description is a middle-aged male, up in the chair in no distress. RESPIRATORY SYSTEM: Unlabored breathing, clear to auscultation anteriorly. HEART: S1, S2. Regular rate and rhythm. ABDOMEN: Soft, no tenderness. LABS: BUN of 4, creatinine 0.52. The patient did have a repeat CT which did show overall improvement in his abdominal abscess. DIAGNOSTIC IMPRESSION AND PLAN: Patient with abdominal abscess in this patient who did have complicated abdominal history, started with gangrenous cholecystitis, status post open cholecystectomy and pancreatic pseudocyst that has been drained at [facility]. Currently on IV Invanz and overall abscess cavity is slowly coming down. We will keep the patient on IV Invanz for another 2-3 weeks and close outpatient followup. MMODL / IJN: [id number] /
--- NOTE | 2019-11-20 15:19 | P.DS ---
Providers Date of admission: 11/17/19 03:18 Expected date of discharge: 11/20/19 Attending physician: Robin Rosales Consults: 11/17/19 10:42 Consult Physician Routine Consulting Provider: Fadi Lopez Consult Reason/Comments: medical management Do you want consulting provider notified?: Yes 11/17/19 10:50 Consult Physician Routine Consulting Provider: Ольга Hernandez Consult Reason/Comments: pt known to you, abdominal abscess Do you want consulting provider notified?: Yes Primary care physician: [facility] Course: 54 year old male who presented to the hospital with a chief complaint of abdominal pain. Patient is known to surgical services secondary to history of open cholecystectomy in August 2019. Patient developed a large pancreatic pseudocyst. Patient was transferred to [facility] at that time for further evaluation of his pseudocyst. Patient states he had pseudocyst drained at [facility] and a pigtail drain inserted. He reports being diagnosed with a DVT in his arm at [facility] and was started on Eliquis. Patient was admitted to the hospital from 10/12/2019 until 10/17/2019 secondary to abdominal pain. He was discharged on antibiotics. The patient returned to the hospital and was hospitalized from 10/21/2019 until 10/25/2019 secondary to ileus. Patient has been receiving antibiotics on an outpatient basis per Dr. Hernandez. On the day of admission, patient reported abdominal pain is tolerable with current pain medications. He denied passing flatus. No BM. No nausea or vomiting. Patient was made NPO until he had some bowel function. Diet was advanced as tolerated. He was evaluated by infectious disease during hospitalization. Repeat CT scan was performed revealing some improvement in his abdominal abscess. Patient was deemed stable for discharge home today per Dr. Rosales. Patient will continue Invanz outpatient per Dr. Hernandez. Please see EMR for further hospital course details. Discharge Diagnosis: 1. Ileus 2. History of open cholecystectomy, August 2019 3. History of pancreatic pseudocyst 4. History of DVT, on anticoagulation with Eliquis Nurse practitioner note has been reviewed by physician. Signing provider agrees with the documented findings, assessment, and plan of care. Patient Condition at Discharge: Stable Plan - Discharge Summary Discharge Rx Participant: No New Discharge Prescriptions: Continue metroNIDAZOLE [Flagyl] 500 mg PO Q8HR #42 tab Cefepime HCl [Maxipime] 2 gm IV Q12H #28 vial Apixaban [Eliquis] 5 mg PO BID #60 tab Isradipine 5 mg PO BID #60 cap Hydrocodone/Acetaminophen [[place] 5-325] 1 tab PO Q6HR PRN #10 tab PRN Reason: Pain Discharge Medication List Apixaban [Eliquis] 5 mg PO BID #60 tab 10/17/19 [Rx] Cefepime HCl [Maxipime] 2 gm IV Q12H #28 vial 10/17/19 [Rx] Isradipine 5 mg PO BID #60 cap 10/17/19 [Rx] metroNIDAZOLE [Flagyl] 500 mg PO Q8HR #42 tab 10/17/19 [Rx] Hydrocodone/Acetaminophen [[place] 5-325] 1 tab PO Q6HR PRN #10 tab 10/24/19 [Rx] Follow up Appointment(s)/Referral(s): Cj Malloy MD [Primary Care Provider] - 1-2 days Ольга Hernandez MD [STAFF PHYSICIAN] - 1 Week Robin Rosales MD [STAFF PHYSICIAN] - 1 Week Patient Instructions/Handouts: Ileus (DC)
--- NOTE | 2019-11-20 20:22 | P.PN ---
Progress Note - Text Progress Note Date: 11/20/19 - Chief Complaint Abdominal cramping History of presenting complaint: Natalie is a pleasant 54-year-old Patient of Dr. Malloy. Patient for about 2 years has had episodes of upper abdominal epigastric pain 07/11/2019-Admitted with-acute cholecystitis with choledocholithiasis, acute gallstone pancreatitis. patient clinically deteriorated and was transferred to the ICU on July 13. Patient intubated.went into renal failure. Started hemodialysis. Patient underwent open cholecystectomy with gallstone removal on 07/17/2019. extubated July 21. Patient had a biliary leak had a biliary stent placed on August 04. On August 06 had a computed tomography scan showing large pseudocyst. Repeat computed tomography scan of the abdomen was done - Showed enlarging pseudocyst. Gone from 20 cm the 24 cm. patient was transferred to [facility].Patient was there for about a month. Eventually the pseudocyst was drained and also has patient has a pigtail catheter in the abdomen. He also then developed a DVT in the right upper extremity is put on eliquis. Patient was then hospitalized from October 11 through October 16. Computed tomography scan showed a fluid collection felt to be abscess again decided to manage the patient conservatively and patient was discharged on by mouth Flagyl and IV cefepime. Patient was then admitted from October 20 through October 24 with ileus.-Discharged on IV cefepime and Flagyl. He recently switched over to IV Invanz as not able to tolerate Flagyl. Patient now presents with increasing abdominal cramping on Wednesday. According bit better on Wednesday to get significant cramping on . That was yesterday. Also nausea vomiting. No obvious fever or chills. Patient's bowel movements are variable. Admitted with-bowel obstruction and severe hypokalemia. Today-tolerating his full liquid diet. Doing better. Had some loose stool. No more abdominal cramping. No nausea vomiting. Up to the bathroom and back. Review of systems: Was done for constitutional, cardiovascular, GI, pulmonary. relevant finding as above Current medication today reviewed in electronic chart Physical examination: VITAL SIGNS: 96.3, 99, 18, 120/84, 98% on room air GENERAL: Sitting up in the bed, comfortable EYES: Pupils equal. Conjunctiva normal. HEENT: External appearance of nose and ears normal, oral cavity grossly normal. NECK: JVD not raised; masses not palpable. HEART: First and second heart sounds are normal; no edema. LUNGS: Respiratory rate normal; clear to auscultation. ABDOMEN: Soft, no tenderness, no guarding or rigidity, liver spleen not palpable, no masses palpable. Pigtail in place PSYCH: Alert and oriented x3; mood and affect normal. INVESTIGATIONS, reviewed in the clinical context: Potassium 4.2 creatinine 0.52 Previous testing White count 9.9 hemoglobin 15.2 platelets 358 pressure for bun 7 creatinine 0.58 Lipase 80 Abdominal x-ray personally reviewed by me-multiple dilated loops of gas and fluid-filled small bowel possibly slightly worse than the previous exam Chest x-ray film personally reviewed by me-some effort levels in the abdomen lung mai are clear Assessment: -History of acute cholecystitis with choledocholithiasis, gallstone pancreatitis . Patient status post cholecystectomy with gallstone removal. Subsequently a large pseudocyst. That was drained. Subsequently intra-abdominal abscess for which patient did receive IV cefepime and Flagyl. -Now presenting with bowel obstruction and multiple air-fluid levels abdominal cramping nausea vomiting-clinically doing better. -Hypokalemia-severe -Right upper extremity DVT, currently on Lovenox -Normocytic anemia-to drop of hemoglobin is from hemoconcentration no Juju blood loss. Plan: Patient is on IV Invanz. On full liquid diet. Overall doing much better. Thank you Dr. Rosales
== END 2019-11-20 15:40 | disposition home or self-care (01) | DRG 388 ==
LOC: EC 01:53 → 5NMEDONC 03:18
PROVIDERS: ADMIT Surgery; ATTEND Surgery
DX: K56.7 Ileus, unspecified (principal); K65.1 Peritoneal abscess; K86.3 Pseudocyst of pancreas; I10 Essential (primary) hypertension; H91.93 Unspecified hearing loss, bilateral; F17.290 Nicotine dependence, other tobacco product, uncomplicated; E87.6 Hypokalemia; D64.89 Other specified anemias; Z71.3 Dietary counseling and surveillance; Z79.01 Long term (current) use of anticoagulants; Z79.899 Other long term (current) drug therapy; Z86.711 Personal history of pulmonary embolism; Z90.49 Acquired absence of other specified parts of digestive tract; Z86.010 Personal history of colon polyps; Z98.890 Other specified postprocedural states; Z86.718 Personal history of other venous thrombosis and embolism; Z95.828 Presence of other vascular implants and grafts; Z96.89 Presence of other specified functional implants; Z88.0 Allergy status to penicillin; Z82.49 Family history of ischemic heart disease and other diseases of the circulatory system
CPT/HCPCS: 36415; 71045; 74018; 74177; 80048; 80053; 81001; 82150; 83605; 83690; 84484; 85025; 85027; 87086; 96361; 96374; 96375; 99285

== ENCOUNTER → 2019-12-05 | Outpatient (CLI) | payer BC ==
--- NOTE | 2019-12-05 16:06 | CT ---
EXAMINATION TYPE: CT abdomen pelvis w con DATE OF EXAM: 12/05/2019 COMPARISON: CT abdomen and pelvis November 20, 2019 and older CTs HISTORY: Follow up to abscess CT DLP: 1164.2 mGycm, Automated Exposure Control for Dose Reduction was Utilized. CONTRAST: CT scan of the abdomen and pelvis is performed with oral and with IV Contrast, patient injected with 100 mL of Isovue 300. FINDINGS: LUNG BASES: Bilateral subareolar gynecomastia again seen. LIVER/GB: Liver remains diffusely low dense consistent with diffuse fatty infiltration. Pneumobilia r edemonstrated. Cholecystectomy clips redemonstrated. Metallic internal biliary stent redemonstrated b kristen aerated on current study with some residual fluid or soft tissue near the ampulla. No new bilia ry dilatation clearly seen. PANCREAS: Persistent atrophy of pancreas with pigtail drainage catheter distal body level extending t hrough the stomach terminating near antrum. SPLEEN: No significant abnormality is seen. ADRENALS: No significant abnormality is seen. KIDNEYS: No significant abnormality is seen. BOWEL: Oral contrast only reaches distal jejunal loops in the left abdomen making evaluation slightly suboptimal. Mild to moderate wall thickening in the distal stomach and duodenal sweep remains presen t. Fecal filled prominence of the right, left, and transverse colon. PROSTATE/SEMINAL VESICLES: No gross abnormality seen. LYMPH NODES: No greater than 1cm abdominal or pelvic lymph nodes are appreciated. OSSEOUS STRUCTURES: Moderate disc space narrowing lumbosacral junction. OTHER: There is percutaneous pigtail drainage catheter right upper pelvis terminating near axial imag e 66. Small amount of fluid and air tip is seen. There is thin walled fluid collection superior and t o the right of this measuring 3.3 x 2.7 x 4.1 cm axial image 59 and coronal image 32 may be separate from the pigtail tip. Correlate clinically with output values. Tiny amount of free fluid inferior to this remains present. Prior visualized air-fluid level near tip axial image 74 on prior study has res olved. Tiny focus of extraluminal air axial image 62 remains present on current study. Persistent mi ld to moderate diffuse soft tissue anasarca or subcutaneous edema. IMPRESSION: Some persistent improvement in fluid or abscess collection near percutaneous pigtail drai nage catheter tip. Fairly stable single residual thin-walled fluid collection superior and to the rig ht of this. Moderate colonic fecal stasis on current study. Persistent mild to moderate gastritis/duo denitis. Stable pancreatic gastric pigtail drainage catheter. No new biliary dilatation. Stable metal lic internal biliary stent. Interval resolution of tiny left pleural effusion.
== END | disposition home or self-care (01) ==
LOC: RADCTMAIN 13:35
PROVIDERS: ATTEND Internal Medicine Infectious Disease
DX: K65.1 Peritoneal abscess (principal)
CPT/HCPCS: 74177; Q9967

== ENCOUNTER 2019-12-14 20:55 | Emergency (ER) | payer BC ==
[2019-12-14] MEDS ORDERED: HYDROmorphone 1 MG/ML 1 ML SYRINGE IVP STA ×3 (21:21→22:55)
[2019-12-14] MEDS ORDERED: SODIUM CHLORIDE 0.9% 1,000 ML IV STA ×2 (21:21)
--- NOTE | 2019-12-14 21:25 | ED ---
Abdominal Pain HPI - General Chief Complaint: Abdominal Pain Stated Complaint: post op Abdominal Pain Time Seen by Provider: 12/14/19 21:10 Source: patient, family, RN notes reviewed Mode of arrival: ambulatory Limitations: no limitations - History of Present Illness Initial Comments: This is a 54-year-old male who presents with complaints of abdominal pain is started about 2 hours ago. He states the pain is dull radiating from her stomach up toward her shoulders bilaterally it's severe 10/10 severity. He has nausea with it some dry heaves he states he feels dehydrated he has not had much oral intake. He states that he did have an ERCP done today. He does state he had stents taken out today at [facility] in [place] from the bile duct one from the stomach. Does have a history of a cholecystectomy with her abdominal abscess he did have a impacted stone apparently prior to all this. MD Complaint: abdominal pain - Related Data Home Medications Medication Instructions Recorded Confirmed Apixaban [Eliquis] 5 mg PO BID 12/14/19 12/14/19 Hydrocodone/Acetaminophen [[place] 1 tab PO TID PRN 12/14/19 12/14/19 5-325] Potassium Chloride ER [K-Dur 20] 20 meq PO BID 12/14/19 12/14/19 Previous Rx's Medication Instructions Recorded Isradipine 5 mg PO BID #60 cap 10/17/19 Acetaminophen Tab [Tylenol Tab] 650 mg PO Q4H PRN #30 tablet 11/20/19 Ertapenem [INVanz] 1 gm IVPB Q24H #14 bag 11/20/19 Ondansetron Odt [Zofran Odt] 4 mg PO Q8HR PRN #12 tab 12/14/19 Allergies Allergy/AdvReac Type Severity Reaction Status Date / Time amoxicillin Allergy Rash/Hives Verified 12/14/19 22:23 Review of Systems ROS Statement: Those systems with pertinent positive or pertinent negative responses have been documented in the HPI. ROS Other: All systems not noted in ROS Statement are negative. Past Medical History Past Medical History: Deep Vein Thrombosis (DVT), Hearing Disorder / Deafness, Hypertension, Pulmonary Embolus (PE) Additional Past Medical History / Comment(s): HAD A HEART MURMUR WHEN A CHILD- NEVER HEARD ANYTHING AFTER THAT ABOUT IT, SL. HEARLING LOSS YAMILA. EARS. Stents placed in stomach History of Any Multi-Drug Resistant Organisms: None Reported Past Surgical History: Cholecystectomy Additional Past Surgical History / Comment(s): Colonoscopy with benign polypectomy Past Anesthesia/Blood Transfusion Reactions: No Reported Reaction Past Psychological History: No Psychological Hx Reported Smoking Status: Current some day smoker Past Alcohol Use History: Occasional Past Drug Use History: None Reported - Past Family History Father Family Medical History: Coronary Artery Disease (CAD) Additional Family Medical History / Comment(s): Father had 4 vessel CABG Mother Family Medical History: Hypertension General Exam - General Exam Comments Initial Comments: This is a well-developed asthenic appearing male who is awake alert oriented 3 Limitations: no limitations General appearance: alert, anxious, in distress Head exam: Present: atraumatic, normocephalic, normal inspection Eye exam: Present: normal appearance, PERRL, EOMI. Absent: scleral icterus, conjunctival injection, periorbital swelling ENT exam: Present: mucous membranes dry Neck exam: Present: normal inspection. Absent: tenderness, meningismus, lymphad enopathy Respiratory exam: Present: normal lung sounds bilaterally. Absent: respiratory distress, wheezes, rales, rhonchi, stridor Cardiovascular Exam: Present: normal rhythm, tachycardia, normal heart sounds. Absent: systolic murmur, diastolic murmur, rubs, gallop, clicks GI/Abdominal exam: Present: soft, distended, tenderness (Tennis palpation no overt guarding or rebound well-healed surgical scar in right upper quadrant or is a drainage tube from the bowel noted.), normal bowel sounds. Absent: guarding, rebound, rigid Extremities exam: Present: full ROM, normal capillary refill, other (Right upper extremity PICC line). Absent: tenderness, pedal edema, joint swelling, calf tenderness Back exam: Present: normal inspection Neurological exam: Present: alert, oriented X3, CN II-XII intact Psychiatric exam: Present: normal affect, normal mood Skin exam: Present: warm, dry, intact, normal color. Absent: rash Course Vital Signs 12/14/19 12/14/19 21:00 22:02 Temperature 98.6 F 98.7 F Pulse Rate 108 H 100 Respiratory 20 18 Rate Blood Pressure 142/86 132/78 O2 Sat by Pulse 97 100 Oximetry - Reevaluation(s) Reevaluation #1: 12/14/19 22:43 Reevaluation patient reveals that he is feeling much improved at this time we did discuss disposition he would rather go home than stay in the hospital tonight. He is aware the ileus the x-ray does show. She will try some oral fluids before the final disposition Medical Decision Making - Medical Decision Making I did reevaluate the patient on multiple occasions he was feeling improved though still slightly nauseated and slight abdominal discomfort still he does not want stay this time after multiple discussions he is invited back at any time however. His is present and they are in agreement with this. He will be sent home with a [employer] starter pack. He is otherwise to follow-up with his doctor and return if needed - Lab Data Result diagrams: 12/14/19 21:30 12/14/19 21:30 Lab Results 12/14/19 12/14/19 12/14/19 Range/Units 21:30 21:30 21:57 WBC 6.2 (3.8-10.6) k/uL RBC 5.12 (4.30-5.90) m/uL Hgb 14.3 (13.0-17.5) gm/dL Hct 45.9 (39.0-53.0) % MCV 89.5 (80.0-100.0) fL MCH 27.9 (25.0-35.0) pg MCHC 31.2 (31.0-37.0) g/dL RDW 16.4 H (11.5-15.5) % Plt Count 209 (150-450) k/uL Neutrophils % 76 % Lymphocytes % 18 % Monocytes % 4 % Eosinophils % 1 % Basophils % 0 % Neutrophils # 4.7 (1.3-7.7) k/uL Lymphocytes # 1.1 (1.0-4.8) k/uL Monocytes # 0.3 (0-1.0) k/uL Eosinophils # 0.0 (0-0.7) k/uL Basophils # 0.0 (0-0.2) k/uL Anisocytosis Slight Sodium 139 (137-145) mmol/L Potassium 3.2 L (3.5-5.1) mmol/L Chloride 110 H (98-107) mmol/L Carbon Dioxide 23 (22-30) mmol/L Anion Gap 6 mmol/L BUN 8 L (9-20) mg/dL Creatinine 0.62 L (0.66-1.25) mg/dL Est GFR (CKD-EPI)AfAm >90 (>60 ml/min/1.73 sqM) Est GFR (CKD-EPI)NonAf >90 (>60 ml/min/1.73 sqM) Glucose 108 H (74-99) mg/dL Calcium 8.5 (8.4-10.2) mg/dL Total Bilirubin 1.1 (0.2-1.3) mg/dL AST 168 H (17-59) U/L ALT 61 H (4-49) U/L Alkaline Phosphatase 333 H (38-126) U/L Total Protein 5.3 L (6.3-8.2) g/dL Albumin 2.7 L (3.5-5.0) g/dL Amylase <30 L (30-110) U/L Lipase 172 (23-300) U/L Urine Color Red Urine Appearance Cloudy (Clear) Urine pH 6.0 (5.0-8.0) Ur Specific [place] 1.025 (1.001-1.035) Urine Protein 1+ H (Negative) Urine Glucose (UA) Negative (Negative) Urine Ketones Trace H (Negative) Urine Blood Moderate H (Negative) Urine Nitrite Negative (Negative) Urine Bilirubin 1+ H (Negative) Urine Urobilinogen 3.0 (<2.0) mg/dL Ur Leukocyte Esterase Negative (Negative) Urine RBC >182 H (0-5) /hpf Urine WBC 3 (0-5) /hpf Hyaline Casts 8 H (0-2) /lpf Urine Mucus Moderate H (None) /hpf - Radiology Data Radiology results: report reviewed (I did review the imaging and report evidence of ileus but no obstructive pattern at this time.), image reviewed Disposition Clinical Impression: Abdominal pain, Ileus, Dehydration, Hypokalemia Disposition: HOME SELF-CARE Condition: Stable Prescriptions: Ondansetron Odt [Zofran Odt] 4 mg PO Q8HR PRN #12 tab PRN Reason: Nausea Is patient prescribed a controlled substance at d/c from ED?: No Referrals: Cj Malloy MD [Primary Care Provider] - 1-2 days
[2019-12-14 21:47] LABS: ALT 61 U/L (4-49); AST 168 U/L (17-59); African American GFR (CKD) >90 (>60 ml/min/1.73 sqM); Albumin 2.7 g/dL (3.5-5.0); Alkaline Phosphatase 333 U/L (38-126); Amylase <30 U/L (30-110); Anion Gap 6 mmol/L; Blood Urea Nitrogen 8 mg/dL (9-20); Calcium 8.5 mg/dL (8.4-10.2); Carbon Dioxide 23 mmol/L (22-30); Chloride 110 mmol/L (98-107); Glucose 108 mg/dL (74-99); Non-African American GFR(CKD) >90 (>60 ml/min/1.73 sqM); Potassium 3.2 mmol/L (3.5-5.1); Sodium 139 mmol/L (137-145); Total Bilirubin 1.1 mg/dL (0.2-1.3); Total Protein 5.3 g/dL (6.3-8.2)
[2019-12-14] MEDS ORDERED: ONDANSETRON 4 MG/2 ML VIAL IM STA (21:48)
[2019-12-14] MEDS ORDERED: HYDROmorphone 1 MG/ML 1 ML SYRINGE IM STA (21:53)
--- NOTE | 2019-12-14 21:56 | XR ---
EXAMINATION TYPE: XR KUB DATE OF EXAM: 12/14/2019 COMPARISON: 11/17/2019 HISTORY: Abdominal pain TECHNIQUE: 2 views upright FINDINGS: There are multiple dilated gas and fluid-filled loops of small bowel. I see no free air. Th ere is also gaseous distention of the large bowel. There is gas down to the rectum. There is pigtail drainage catheter over the right side of the sacrum. There are no pathologic calcifications. There is small amount of air in the biliary tree. IMPRESSION: Dilated air and fluid-filled loops of large and small bowel suggestive of generalized ile us. No free air. There is decreased dilation compared to last exam.
[2019-12-14] MEDS ORDERED: ONDANSETRON 4 MG/2 ML VIAL IVP STA (21:58)
[2019-12-14 22:03] LABS: Anisocytosis Slight; Basophils % (A) 0 %; Eosinophils % (A) 1 %; HCT 45.9 % (39.0-53.0); HGB 14.3 gm/dL (13.0-17.5); Lymphocytes # (A) 1.1 k/uL (1.0-4.8); Lymphocytes % (A) 18 %; MCH 27.9 pg (25.0-35.0); MCHC 31.2 g/dL (31.0-37.0); MCV 89.5 fL (80.0-100.0); Monocytes # (A) 0.3 k/uL (0-1.0); Monocytes % (A) 4 %; Neutrophils # (A) 4.7 k/uL (1.3-7.7); Neutrophils % (A) 76 %; Platelet Count 209 k/uL (150-450); RBC 5.12 m/uL (4.30-5.90); RDW 16.4 % (11.5-15.5); WBC 6.2 k/uL (3.8-10.6)
[2019-12-14 22:16] LABS: Appearance,Urine Cloudy (Clear); Bilirubin,Urine 1+ (Negative); Blood,Urine Moderate (Negative); Color,Urine Red; Glucose,Urine (UA) Negative (Negative); Hyaline Casts,Urine 8 /lpf (0-2); Ketones,Urine Trace (Negative); Leukocyte Esterase,Urine Negative (Negative); Mucus,Urine Moderate /hpf; Nitrite,Urine Negative (Negative); Protein,Urine 1+ (Negative); RBC,Urine >182 /hpf (0-5); Specific Gravity,Urine 1.025 (1.001-1.035); WBC,Urine 3 /hpf (0-5)
[2019-12-14 22:20] VITALS: BP 132/78; PULSE 100; RESP 18; TEMP 98.7
[2019-12-14] MEDS ORDERED: ONDANSETRON ODT 4 MG TAB PO STA (22:44)
[2019-12-14] MEDS ORDERED: ONDANSETRON 4 MG ODT STARTER PACK 2 TAB BTL PO STA (22:53)
== END 2019-12-14 23:41 | disposition home or self-care (01) ==
LOC: EC 20:55
DX: K56.7 Ileus, unspecified (principal); E86.0 Dehydration; E87.6 Hypokalemia; R00.0 Tachycardia, unspecified; F17.200 Nicotine dependence, unspecified, uncomplicated; Z79.01 Long term (current) use of anticoagulants; Z79.899 Other long term (current) drug therapy; Z88.0 Allergy status to penicillin; Z86.718 Personal history of other venous thrombosis and embolism; Z86.711 Personal history of pulmonary embolism; Z98.890 Other specified postprocedural states; Z90.49 Acquired absence of other specified parts of digestive tract
CPT/HCPCS: 36415; 80053; 82150; 83690; 85025; 81001; 74018; 96374; 96375; 96376; 96361 ×2; 99284; J2405; J1170; S0119

== ENCOUNTER 2019-12-15 20:34 | Emergency (ER) | payer BC ==
[2019-12-15 20:40] VITALS: TEMP 99.3
[2019-12-15] MEDS ORDERED: ONDANSETRON 4 MG/2 ML VIAL IVP STA (22:09)
[2019-12-15] MEDS ORDERED: SODIUM CHLORIDE 0.9% 500 ML 500 ML IV STA (22:09)
[2019-12-15] MEDS ORDERED: HYDROmorphone 1 MG/ML 1 ML SYRINGE IVP STA (22:57)
[2019-12-15] MEDS ORDERED: DICYCLOMINE 10 MG/ML 2 ML AMP IM STA (22:57)
[2019-12-15 23:16] LABS: Anisocytosis Slight; Basophils % (A) 0 %; Eosinophils # (A) 0.1 k/uL (0-0.7); Eosinophils % (A) 1 %; HCT 45.3 % (39.0-53.0); HGB 14.9 gm/dL (13.0-17.5); Lymphocytes # (A) 0.6 k/uL (1.0-4.8); Lymphocytes % (A) 7 %; MCH 29.4 pg (25.0-35.0); Mean Platelet Volume 7.5; Monocytes # (A) 0.3 k/uL (0-1.0); Monocytes % (A) 3 %; Neutrophils # (A) 8.4 k/uL (1.3-7.7); Neutrophils % (A) 88 %; Platelet Count 187 k/uL (150-450); RBC 5.09 m/uL (4.30-5.90); RDW 16.4 % (11.5-15.5); WBC 9.5 k/uL (3.8-10.6)
[2019-12-15 23:23] LABS: Appearance,Urine Cloudy (Clear); Bacteria,Urine Rare /hpf; Bilirubin,Urine Negative (Negative); Blood,Urine Large (Negative); Color,Urine Dark Brown; Glucose,Urine (UA) Negative (Negative); Hyaline Casts,Urine 13 /lpf (0-2); Ketones,Urine Trace (Negative); Leukocyte Esterase,Urine Negative (Negative); Mucus,Urine Moderate /hpf; Nitrite,Urine Negative (Negative); Protein,Urine 1+ (Negative); RBC,Urine >182 /hpf (0-5); Specific Gravity,Urine 1.026 (1.001-1.035); WBC,Urine 9 /hpf (0-5)
[2019-12-15 23:31] LABS: ALT 41 U/L (4-49); AST 55 U/L (17-59); African American GFR (CKD) >90 (>60 ml/min/1.73 sqM); Albumin 2.4 g/dL (3.5-5.0); Alkaline Phosphatase 172 U/L (38-126); Anion Gap 5 mmol/L; Blood Urea Nitrogen 11 mg/dL (9-20); Calcium 8.6 mg/dL (8.4-10.2); Carbon Dioxide 24 mmol/L (22-30); Chloride 107 mmol/L (98-107); Glucose 132 mg/dL (74-99); Non-African American GFR(CKD) >90 (>60 ml/min/1.73 sqM); Sodium 136 mmol/L (137-145); Total Protein 4.9 g/dL (6.3-8.2)
[2019-12-15 23:37] LABS: Amylase <30 U/L (30-110)
--- NOTE | 2019-12-16 00:05 | ED ---
Abdominal Pain HPI - General Chief Complaint: Abdominal Pain Stated Complaint: Abdominal pain Time Seen by Provider: 12/15/19 21:54 Source: patient Mode of arrival: ambulatory Limitations: no limitations - History of Present Illness Initial Comments: Patient is 54-year-old male presenting to emergency from for chief complaint of abdominal pain. Patient states she had an ERCP performed 2 days ago and was in the ED yesterday for abdominal pain that radiated to both shoulders. States now that has resolved, however he has developed some abdominal cramping. Reports abdominal cramping episodes last a few seconds they come and go. Patient reports nausea with vomiting. Patient also reports that he has noticed some darkening of the urine versus yesterday. Denies any night sweats fevers or chills. Does report some diarrhea. Denies any chest pain or shortness of breath. States his of [place] at home but the pain still persists. He has a draining tube surgically placed in the right lower abdomen. - Related Data Home Medications Medication Instructions Recorded Confirmed Apixaban [Eliquis] 5 mg PO BID 12/14/19 12/14/19 Hydrocodone/Acetaminophen [[place] 1 tab PO TID PRN 12/14/19 12/14/19 5-325] Potassium Chloride ER [K-Dur 20] 20 meq PO BID 12/14/19 12/14/19 Previous Rx's Medication Instructions Recorded Isradipine 5 mg PO BID #60 cap 10/17/19 Acetaminophen Tab [Tylenol Tab] 650 mg PO Q4H PRN #30 tablet 11/20/19 Ertapenem [INVanz] 1 gm IVPB Q24H #14 bag 11/20/19 Ondansetron Odt [Zofran Odt] 4 mg PO Q8HR PRN #12 tab 12/14/19 Allergies Allergy/AdvReac Type Severity Reaction Status Date / Time amoxicillin Allergy Rash/Hives Verified 12/15/19 21:05 Review of Systems ROS Statement: Those systems with pertinent positive or pertinent negative responses have been documented in the HPI. ROS Other: All systems not noted in ROS Statement are negative. Past Medical History Past Medical History: Deep Vein Thrombosis (DVT), Hearing Disorder / Deafness, Hypertension, Pulmonary Embolus (PE) Additional Past Medical History / Comment(s): HAD A HEART MURMUR WHEN A CHILD- NEVER HEARD ANYTHING AFTER THAT ABOUT IT, SL. HEARLING LOSS YAMILA. EARS. Stents placed in stomach History of Any Multi-Drug Resistant Organisms: None Reported Past Surgical History: Cholecystectomy Additional Past Surgical History / Comment(s): Colonoscopy with benign polypectomy Past Anesthesia/Blood Transfusion Reactions: No Reported Reaction Past Psychological History: No Psychological Hx Reported Smoking Status: Current some day smoker Past Alcohol Use History: Occasional Past Drug Use History: None Reported - Past Family History Father Family Medical History: Coronary Artery Disease (CAD) Additional Family Medical History / Comment(s): Father had 4 vessel CABG Mother Family Medical History: Hypertension General Exam Limitations: no limitations General appearance: alert, in no apparent distress Head exam: Present: atraumatic, normocephalic, normal inspection Eye exam: Present: normal appearance, PERRL, EOMI Pupils: Present: normal accommodation ENT exam: Present: normal exam Course Vital Signs 12/15/19 12/15/19 12/15/19 20:37 22:45 23:45 Temperature 99.3 F Pulse Rate 127 H 106 H 104 H Respiratory 18 20 18 Rate Blood Pressure 136/98 137/92 134/88 O2 Sat by Pulse 96 95 99 Oximetry Medical Decision Making - Medical Decision Making Patient is a 54-year-old male presenting to emergency Department with chief complaint of abdominal pain. Patient was in ED yesterday with similar symptoms although now they turn into a cramping sensation in the abdomen. Patient did also have some dark urine today. Patient is taking potassium tablets at home. She seemed is 3.0 currently. Patient has hematuria with red blood cells over 180. No signs of urinary tract infection. Patient was given fluids, ant iemetics, Bentyl and analgesia. Reevaluation patient reports improvement in symptoms. States the cramping sensation occurs a lot less for short periods of time. Patient advised to follow-up with his physician who performed the procedure. Return parameters thoroughly discussed with patient was un derstanding and agreeable. Case discussed with physician. - Lab Data Result diagrams: 12/15/19 22:35 12/15/19 22:35 Lab Results 12/15/19 12/15/19 12/15/19 Range/Units 22:35 22:35 22:35 WBC 9.5 (3.8-10.6) k/uL RBC 5.09 (4.30-5.90) m/uL Hgb 14.9 (13.0-17.5) gm/dL Hct 45.3 (39.0-53.0) % MCV 89.0 (80.0-100.0) fL MCH 29.4 (25.0-35.0) pg MCHC 33.0 (31.0-37.0) g/dL RDW 16.4 H (11.5-15.5) % Plt Count 187 (150-450) k/uL Neutrophils % 88 % Lymphocytes % 7 % Monocytes % 3 % Eosinophils % 1 % Basophils % 0 % Neutrophils # 8.4 H (1.3-7.7) k/uL Lymphocytes # 0.6 L (1.0-4.8) k/uL Monocytes # 0.3 (0-1.0) k/uL Eosinophils # 0.1 (0-0.7) k/uL Basophils # 0.0 (0-0.2) k/uL Anisocytosis Slight Sodium 136 L (137-145) mmol/L Potassium 3.0 L (3.5-5.1) mmol/L Chloride 107 (98-107) mmol/L Carbon Dioxide 24 (22-30) mmol/L Anion Gap 5 mmol/L BUN 11 (9-20) mg/dL Creatinine 0.58 L (0.66-1.25) mg/dL Est GFR (CKD-EPI)AfAm >90 (>60 ml/min/1.73 sqM) Est GFR (CKD-EPI)NonAf >90 (>60 ml/min/1.73 sqM) Glucose 132 H (74-99) mg/dL Calcium 8.6 (8.4-10.2) mg/dL Total Bilirubin 1.0 (0.2-1.3) mg/dL AST 55 (17-59) U/L ALT 41 (4-49) U/L Alkaline Phosphatase 172 H (38-126) U/L Total Protein 4.9 L (6.3-8.2) g/dL Albumin 2.4 L (3.5-5.0) g/dL Amylase <30 L (30-110) U/L Lipase 262 (23-300) U/L Urine Color Dark Brown Urine Appearance Cloudy (Clear) Urine pH 6.0 (5.0-8.0) Ur Specific [place] 1.026 (1.001-1.035) Urine Protein 1+ H (Negative) Urine Glucose (UA) Negative (Negative) Urine Ketones Trace H (Negative) Urine Blood Large H (Negative) Urine Nitrite Negative (Negative) Urine Bilirubin Negative (Negative) Urine Urobilinogen 2.0 (<2.0) mg/dL Ur Leukocyte Esterase Negative (Negative) Urine RBC >182 H (0-5) /hpf Urine WBC 9 H (0-5) /hpf Urine Bacteria Rare H (None) /hpf Hyaline Casts 13 H (0-2) /lpf Urine Mucus Moderate H (None) /hpf Disposition Clinical Impression: Abdominal pain, Nausea & vomiting Disposition: HOME SELF-CARE Condition: Good Instructions (If sedation given, give patient instructions): Abdominal Pain (ED) Additional Instructions: Follow-up with the physician who performed the procedure. Return to emergency department if symptoms worsen. Is patient prescribed a controlled substance at d/c from ED?: No Referrals: Jose Roberto Hall MD [Primary Care Provider] - 1-2 days Time of Disposition: 00:14
[2019-12-16 00:57] VITALS: BP 142/68; PULSE 101; RESP 20
== END 2019-12-16 00:30 | disposition home or self-care (01) ==
LOC: EC 20:34
DX: R10.10 Upper abdominal pain, unspecified (principal); R11.2 Nausea with vomiting, unspecified; R19.7 Diarrhea, unspecified; R31.9 Hematuria, unspecified; F17.200 Nicotine dependence, unspecified, uncomplicated; Z86.711 Personal history of pulmonary embolism; Z86.718 Personal history of other venous thrombosis and embolism; Z86.010 Personal history of colon polyps; Z90.49 Acquired absence of other specified parts of digestive tract; Z79.01 Long term (current) use of anticoagulants; Z79.899 Other long term (current) drug therapy; Z88.0 Allergy status to penicillin
CPT/HCPCS: 99284; 96374; 96375; 96361; 96372; 36415; 80053; 82150; 83690; 85025; 81001; J0500; J2405; J1170

== ENCOUNTER 2019-12-29 14:37 | Emergency (ER) | payer BC ==
[2019-12-29] MEDS ORDERED: SODIUM CHLORIDE 0.9% 1,000 ML IV STA (15:44)
[2019-12-29] MEDS ORDERED: METOCLOPRAMIDE 5 MG/ML 2 ML VIAL IVP STA (15:44)
[2019-12-29 16:16] LABS: Basophils % (A) 0 %; Eosinophils # (A) 0.1 k/uL (0-0.7); Eosinophils % (A) 1 %; HCT 40.4 % (39.0-53.0); HGB 12.6 gm/dL (13.0-17.5); Lymphocytes % (A) 8 %; MCH 27.9 pg (25.0-35.0); MCHC 31.3 g/dL (31.0-37.0); MCV 88.9 fL (80.0-100.0); Mean Platelet Volume 7.1; Monocytes # (A) 0.7 k/uL (0-1.0); Monocytes % (A) 5 %; Neutrophils # (A) 10.4 k/uL (1.3-7.7); Neutrophils % (A) 85 %; RBC 4.54 m/uL (4.30-5.90); RDW 14.7 % (11.5-15.5); WBC 12.3 k/uL (3.8-10.6)
[2019-12-29 16:24] LABS: Appearance,Urine Clear (Clear); Bilirubin,Urine Negative (Negative); Blood,Urine Negative (Negative); Calcium Oxalate Crystals,Urine Rare /hpf; Color,Urine Yellow; Glucose,Urine (UA) Negative (Negative); Hyaline Casts,Urine 4 /lpf (0-2); Ketones,Urine Negative (Negative); Leukocyte Esterase,Urine Negative (Negative); Mucus,Urine Few /hpf; Nitrite,Urine Negative (Negative); Protein,Urine 1+ (Negative); Urobilinogen,Urine <2.0 mg/dL (<2.0); WBC,Urine 6 /hpf (0-5)
[2019-12-29 16:25] LABS: Platelet Count 654 k/uL (150-450)
[2019-12-29 16:26] LABS: INR 1.3 (<1.2); Partial Thromboplastin Time 26.8 sec (22.0-30.0); Prothrombin Time 13.3 sec (9.0-12.0)
[2019-12-29 16:28] LABS: ALT 12 U/L (4-49); AST 27 U/L (17-59); African American GFR (CKD) >90 (>60 ml/min/1.73 sqM); Albumin 2.5 g/dL (3.5-5.0); Alkaline Phosphatase 160 U/L (38-126); Anion Gap 4 mmol/L; Blood Urea Nitrogen 11 mg/dL (9-20); Calcium 8.6 mg/dL (8.4-10.2); Carbon Dioxide 33 mmol/L (22-30); Chloride 102 mmol/L (98-107); Glucose 131 mg/dL (74-99); Non-African American GFR(CKD) >90 (>60 ml/min/1.73 sqM); Potassium 3.4 mmol/L (3.5-5.1); Sodium 139 mmol/L (137-145); Total Bilirubin 0.6 mg/dL (0.2-1.3); Total Protein 5.1 g/dL (6.3-8.2)
--- NOTE | 2019-12-29 17:26 | ED ---
Abdominal Pain HPI - General Chief Complaint: Abdominal Pain Stated Complaint: pancreatitis Time Seen by Provider: 12/29/19 15:14 Source: patient, family Mode of arrival: ambulatory Limitations: no limitations - History of Present Illness Initial Comments: Patient is a 54-year-old male presenting to the emergency Department with complaints of hiccups, acid reflex for the past week. Patient is currently being treated for an intra-abdominal abscess from a prior cholecystectomy in August and is currently on Flagyl and Ceftin for 1 more week. He has been seeing Dr. Rosales and Dr. Gustafson. Patient had his abdominal drain tube removed 2 days ago. He previously had a pancreatic stent placed secondary of a pseudocyst and then removed. Patient states he called the doctor's office today regarding his new symptoms and he suggested he come in for a repeat computed tomography scan of his abdomen. Patient states his abdominal pain/distention has been stable and is similar to the pain he has always been in. He describes it as 3/10. He does admit to mild nausea. Denies vomiting, diarrhea, fever, chills, chest pain, shortness of breath. He states the doctor's office did give him something for the hiccups however has not worked. He is also having an increase in acid reflex which is different than before. He denies any other complaints at this time. Upon arrival to the ER, patient was slightly tachycardia at 116, rest of vitals are normal. - Related Data Home Medications Medication Instructions Recorded Confirmed Apixaban [Eliquis] 5 mg PO BID 12/14/19 12/14/19 Hydrocodone/Acetaminophen [[place] 1 tab PO TID PRN 12/14/19 12/14/19 5-325] Potassium Chloride ER [K-Dur 20] 20 meq PO BID 12/14/19 12/14/19 Previous Rx's Medication Instructions Recorded Isradipine 5 mg PO BID #60 cap 10/17/19 Acetaminophen Tab [Tylenol Tab] 650 mg PO Q4H PRN #30 tablet 11/20/19 Ertapenem [INVanz] 1 gm IVPB Q24H #14 bag 11/20/19 Ondansetron Odt [Zofran Odt] 4 mg PO Q8HR PRN #12 tab 12/14/19 Dicyclomine [Bentyl] 20 mg PO TID #14 tablet 12/16/19 Allergies Allergy/AdvReac Type Severity Reaction Status Date / Time amoxicillin Allergy Rash/Hives Verified 12/29/19 14:51 Review of Systems ROS Statement: Those systems with pertinent positive or pertinent negative responses have been documented in the HPI. ROS Other: All systems not noted in ROS Statement are negative. Past Medical History Past Medical History: Deep Vein Thrombosis (DVT), Hearing Disorder / Deafness, Hypertension, Pulmonary Embolus (PE) Additional Past Medical History / Comment(s): HAD A HEART MURMUR WHEN A CHILD- NEVER HEARD ANYTHING AFTER THAT ABOUT IT, [place]. HEARLING LOSS YAMILA. EARS. Stents placed in stomach History of Any Multi-Drug Resistant Organisms: None Reported Past Surgical History: Cholecystectomy Additional Past Surgical History / Comment(s): Colonoscopy with benign polypectomy Past Anesthesia/Blood Transfusion Reactions: No Reported Reaction Past Psychological History: No Psychological Hx Reported Smoking Status: Former smoker Past Alcohol Use History: Occasional Past Drug Use History: None Reported - Past Family History Father Family Medical History: Coronary Artery Disease (CAD) Additional Family Medical History / Comment(s): Father had 4 vessel CABG Mother Family Medical History: Hypertension General Exam - General Exam Comments Initial Comments: GENERAL: Well-appearing, well-nourished and in no acute distress. Pt has been having steady hiccups during ER stay. HEAD: Atraumatic, normocephalic. EYES: Pupils equal round and reactive to light, extraocular movements intact, sclera anicteric, conjunctiva are normal. ENT: TMs normal, nares patent, oropharynx clear without exudates. Moist mucous membranes. NECK: Normal range of motion, supple without lymphadenopathy or JVD. LUNGS: Breath sounds clear to auscultation bilaterally and equal. No wheezes rales or rhonchi. HEART: Tachycardia rate and rhythm without murmurs, rubs or gallops. ABDOMEN: Patient's abdomen is tender in the upper left and right quadrant. There appears to be a mass in the right upper quadrant with some mild distention in the same area. Bowel sounds are hypoactive. : Deferred EXTREMITIES: Normal range of motion, no pitting or edema. No clubbing or cyanosis. NEUROLOGICAL: Cranial nerves II through XII grossly intact. Normal speech, normal gait. PSYCH: Normal mood, normal affect. SKIN: Warm, Dry, normal turgor, no rashes or lesions noted. Limitations: no limitations Course Vital Signs 12/29/19 12/29/19 12/29/19 14:49 18:59 19:05 Temperature 98.8 F 98.8 F 97.6 F Pulse Rate 116 H 101 H 74 Respiratory 18 18 16 Rate Blood Pressure 139/87 139/87 138/71 O2 Sat by Pulse 98 96 Oximetry Medical Decision Making - Medical Decision Making Patient is a 54-year-old male currently being treated for intra-abdominal abscess with Dr. Hernandez and Dr. Gustafson. This is stemming from a cholecystectomy was performed in August. Patient is currently on Flagyl and Ceftin. Patient presented today with 1 week of acid reflex and hiccups. Patient arrives slightly tachycardia, afebrile. Exam revealed tenderness and upper left and right quadrants with a palpable mass and distention of the right upper quadrant. Lab work shows slight leukocytosis at 12.3, platelets 654, lactic acid is 1.3. CT of the abdomen today shows a new perigastric abscess measuring 16.5 cm, new grossly dilated main pancreatic duct up to 1.8cm post removal of biliary stent suggesting an acute ductal obstruction. Extensive inflammatory changes surrounding the stomach, proximal duodenum with markedly thickened folds the stomach. Debris-filled esophagus, small left pleural effusion, small abdominal ascites. Foreign body in the descending colon appears to be a pigtail catheter. I discussed these findings with Dr. Maya who was covering for Dr. Bobby carpenter ho recommended [facility]. [facility] was [facility], Dr. Mendez. He will be a direct admit. Patient refused ambulance transfer and will arrives via private vehicle. Patient is in agreement with this plan of care. Case discussed with Dr. Hayward. - Lab Data Result diagrams: 12/29/19 16:00 12/29/19 16:00 Lab Results 12/29/19 12/29/19 12/29/19 Range/Units 16:00 16:00 16:00 WBC 12.3 H (3.8-10.6) k/uL RBC 4.54 (4.30-5.90) m/uL Hgb 12.6 L (13.0-17.5) gm/dL Hct 40.4 (39.0-53.0) % MCV 88.9 (80.0-100.0) fL MCH 27.9 (25.0-35.0) pg MCHC 31.3 (31.0-37.0) g/dL RDW 14.7 (11.5-15.5) % Plt Count 654 H D (150-450) k/uL Neutrophils % 85 % Lymphocytes % 8 % Monocytes % 5 % Eosinophils % 1 % Basophils % 0 % Neutrophils # 10.4 H (1.3-7.7) k/uL Lymphocytes # 1.0 (1.0-4.8) k/uL Monocytes # 0.7 (0-1.0) k/uL Eosinophils # 0.1 (0-0.7) k/uL Basophils # 0.0 (0-0.2) k/uL PT 13.3 H (9.0-12.0) sec INR 1.3 H (<1.2) APTT 26.8 (22.0-30.0) sec Sodium 139 (137-145) mmol/L Potassium 3.4 L (3.5-5.1) mmol/L Chloride 102 (98-107) mmol/L Carbon Dioxide 33 H (22-30) mmol/L Anion Gap 4 mmol/L BUN 11 (9-20) mg/dL Creatinine 0.51 L (0.66-1.25) mg/dL Est GFR (CKD-EPI)AfAm >90 (>60 ml/min/1.73 sqM) Est GFR (CKD-EPI)NonAf >90 (>60 ml/min/1.73 sqM) Glucose 131 H (74-99) mg/dL Plasma Lactic Acid Rusty (0.7-2.0) mmol/L Calcium 8.6 (8.4-10.2) mg/dL Total Bilirubin 0.6 (0.2-1.3) mg/dL AST 27 (17-59) U/L ALT 12 (4-49) U/L Alkaline Phosphatase 160 H (38-126) U/L Total Protein 5.1 L (6.3-8.2) g/dL Albumin 2.5 L (3.5-5.0) g/dL Urine Color Urine Appearance (Clear) Urine pH (5.0-8.0) Ur Specific [place] (1.001-1.035) Urine Protein (Negative) Urine Glucose (UA) (Negative) Urine Ketones (Negative) Urine Blood (Negative) Urine Nitrite (Negative) Urine Bilirubin (Negative) Urine Urobilinogen (<2.0) mg/dL Ur Leukocyte Esterase (Negative) Urine WBC (0-5) /hpf Calcium Oxalate Crystal (None) /hpf Hyaline Casts (0-2) /lpf Urine Mucus (None) /hpf 12/29/19 12/29/19 Range/Units 16:00 16:00 WBC (3.8-10.6) k/uL RBC (4.30-5.90) m/uL Hgb (13.0-17.5) gm/dL Hct (39.0-53.0) % MCV (80.0-100.0) fL MCH (25.0-35.0) pg MCHC (31.0-37.0) g/dL RDW (11.5-15.5) % Plt Count (150-450) k/uL Neutrophils % % Lymphocytes % % Monocytes % % Eosinophils % % Basophils % % Neutrophils # (1.3-7.7) k/uL Lymphocytes # (1.0-4.8) k/uL Monocytes # (0-1.0) k/uL Eosinophils # (0-0.7) k/uL Basophils # (0-0.2) k/uL PT (9.0-12.0) sec INR (<1.2) APTT (22.0-30.0) sec Sodium (137-145) mmol/L Potassium (3.5-5.1) mmol/L Chloride (98-107) mmol/L Carbon Dioxide (22-30) mmol/L Anion Gap mmol/L BUN (9-20) mg/dL Creatinine (0.66-1.25) mg/dL Est GFR (CKD-EPI)AfAm (>60 ml/min/1.73 sqM) Est GFR (CKD-EPI)NonAf (>60 ml/min/1.73 sqM) Glucose (74-99) mg/dL Plasma Lactic Acid Rusty 1.3 (0.7-2.0) mmol/L Calcium (8.4-10.2) mg/dL Total Bilirubin (0.2-1.3) mg/dL AST (17-59) U/L ALT (4-49) U/L Alkaline Phosphatase (38-126) U/L Total Protein (6.3-8.2) g/dL Albumin (3.5-5.0) g/dL Urine Color Yellow Urine Appearance Clear (Clear) Urine pH 7.0 (5.0-8.0) Ur Specific [place] 1.020 (1.001-1.035) Urine Protein 1+ H (Negative) Urine Glucose (UA) Negative (Negative) Urine Ketones Negative (Negative) Urine Blood Negative (Negative) Urine Nitrite Negative (Negative) Urine Bilirubin Negative (Negative) Urine Urobilinogen <2.0 (<2.0) mg/dL Ur Leukocyte Esterase Negative (Negative) Urine WBC 6 H (0-5) /hpf Calcium Oxalate Crystal Rare H (None) /hpf Hyaline Casts 4 H (0-2) /lpf Urine Mucus Few H (None) /hpf Disposition Clinical Impression: Hiccups, Intra-abdominal abscess, Leukocytosis, Pancreatic duct obstruction Disposition: OTHER INSTITUTION NOT DEFINED Condition: Good Additional Instructions: Please go straight to [facility] ER as a direct admit. Is patient prescribed a controlled substance at d/c from ED?: No Referrals: Cj Malloy MD [Primary Care Provider] - 1-2 days - Out of Hospital Transfer - Req. Specs Out of Hospital Transfer - Requested Specifics: Other Emergency Center ([facility])
--- NOTE | 2019-12-29 17:36 | CT ---
EXAMINATION TYPE: CT abdomen pelvis w con DATE OF EXAM: 12/29/2019 COMPARISON: 12/05/2019 HISTORY: Nausea, vomiting, belching, follow up abscess. CT DLP: 1174.7 mGycm Automated exposure control for dose reduction was used. TECHNIQUE: Helical acquisition of images was performed from the lung bases through the pelvis. CONTRAST: Performed without Oral Contrast and with IV Contrast, patient injected with 100 mL of Isovue 300. FINDINGS: LUNG BASES: New at least small left pleural effusion is partially visualized with associated left bas ilar compressive atelectasis. Esophagus is fluid-filled distally and debris-filled. LIVER/GB: Hepatic parenchyma is diffusely hypoattenuated in comparison to that of the spleen, most co mmonly seen in hepatic steatosis. This finding limits evaluation for hepatic masses. Demonstration of pneumobilia. Surgical absence of the gallbladder. PANCREAS: There appears to be extensive atrophy of the adjacent pancreas with marked ductal dilatatio n up to 1.8 cm. However this was not appreciated on the exam of 12/14/2019 and therefore acute ductal obstruction or. Pancreatic elongated fluid collection are considerations. Acute ductal obstruction is suspected as the metallic stent is no longer seen. Pancreatic head is obscured. SPLEEN: Although the spleen is of normal size splenic varices are seen. ADRENALS: Adrenal glands are mildly thickened symmetrically suggesting adrenal gland hyperplasia. KIDNEYS: Kidneys enhance and excrete symmetrically. FREE AIR: No free air is visualized. ADENOPATHY: Exam is limited for adenopathy given the extensive inflammatory fat stranding. Numerous central mesenteric abnormal infiltrates are seen such as on image 36 that are likely reactive. Repeat CT could be performed for reassessment after improvement of extensive inflammatory change in the abd omen. OSSEOUS STRUCTURES: Overall mild multilevel degenerative disc disease. BOWEL: Marked degree of colonic fecal stasis and multifocal bowel wall thickening. Retained foreign body in the descending colon is seen as a pigtail catheter is described below. OTHER: There is a new elongated fluid collection beginning just deep to the left hemidiaphragm in the left upper quadrant crossing over the stomach to cross midline and abutting the left hepatic lobe. T his contains foci of air and has an enhancing wall. It is difficult to accurately measure given the e longated shape however this measures approximately 16.5 cm in longitudinal dimension and up to 5.9 cm in thickness. There has been interval removal of the enteric tube. The stomach now demonstrates marked rugal fold t hickening of the body and antrum as well as of the proximal duodenum. The previously seen high density fluid collection that was rounded along the cecum with adjacent infl ammatory change and small amount of fluid measures grossly 3.1 cm on image 70 and appears similar to the prior with elongated amount of fluid and phlegmonous change in the anterior pelvis on image 76. S mall amount of fluid extends into the dependent pelvis. There is symmetric probable retroareolar part ially visualized gynecomastia. Pigtail catheter is noted in the descending colon. There is a marked amount of stool throughout the c olon. No gross evidence of pneumoperitoneum is seen. IMPRESSION: 1. New perigastric fluid collection measuring up to 16.5 cm containing air and therefore suggestive o f an abscess. 2. New grossly dilated main pancreatic duct up to 1.8 cm status post removal of the biliary stent sug gesting acute ductal obstruction. 3. The previously seen fluid collection along the cecum is poorly from bowel given lack of oral contrast however this does appear similar to the prior status post removal of the pigtail cathet er. 4. Extensive inflammatory change surrounding the stomach and proximal duodenum with markedly thickene d rugal folds of the stomach. Severe gastritis and duodenitis and/or peptic ulcer disease are possibl e. 5. Debris filled esophagus is seen that could relate to gastroesophageal reflux or decreased propulsi on. 6. New at least small left pleural effusion, partially visualized. New small volume abdominal ascites . 7. Foreign body appears to be located in the descending colon as a pigtail catheter is seen grossly i ntraluminally in the descending colon. Findings were discussed with the ordering provider Abbie Lawrence by Dr. Pittman at 1730 on 12/29/2019.
[2019-12-29 19:06] VITALS: BP 138/71; TEMP 97.6
[2019-12-29 19:55] VITALS: PULSE 105; RESP 18
== END 2019-12-29 20:35 | disposition other institution (70) ==
LOC: EC 14:37
DX: K65.1 Peritoneal abscess (principal); D72.829 Elevated white blood cell count, unspecified; K86.89 Other specified diseases of pancreas; R06.6 Hiccough; J90 Pleural effusion, not elsewhere classified; R18.8 Other ascites; T18.4XXA Foreign body in colon, initial encounter; K21.9 Gastro-esophageal reflux disease without esophagitis; R00.0 Tachycardia, unspecified; Z86.718 Personal history of other venous thrombosis and embolism; Z86.711 Personal history of pulmonary embolism; Z90.49 Acquired absence of other specified parts of digestive tract; Z96.89 Presence of other specified functional implants; Z86.010 Personal history of colon polyps; Z87.891 Personal history of nicotine dependence; Z79.899 Other long term (current) drug therapy; Z88.0 Allergy status to penicillin; Z79.01 Long term (current) use of anticoagulants; Z53.29 Procedure and treatment not carried out because of patient's decision for other reasons
CPT/HCPCS: 99284; 96374; 96361 ×4; 36415; 80053; 83605; 85025; 85610; 85730; 81001; 74177; J2765; Q9967

== ENCOUNTER 2020-01-29 09:22 | Emergency (ER) | payer BC ==
[2020-01-29 09:30] VITALS: TEMP 97.8
[2020-01-29] MEDS ORDERED: ONDANSETRON 4 MG/2 ML VIAL IVP STA (09:46)
[2020-01-29] MEDS ORDERED: KETOROLAC 30 MG/ML 1 ML VIAL IVP STA (09:46)
[2020-01-29] MEDS ORDERED: PANTOPRAZOLE 40 MG/10 ML VIAL IVP STA (09:46)
[2020-01-29] MEDS ORDERED: SODIUM CHLORIDE 0.9% 1,000 ML IV STA (09:46)
[2020-01-29] MEDS ORDERED: HYDROmorphone 1 MG/ML 1 ML SYRINGE IVP STA (09:46)
[2020-01-29] MEDS ORDERED: SODIUM CHLORIDE 0.9% 2,000 ML IV STA (09:46)
--- NOTE | 2020-01-29 10:23 | ED ---
General Adult HPI - General Chief complaint: Nausea/Vomiting/Diarrhea Stated complaint: abd pain/vomiting Time Seen by Provider: 01/29/20 09:33 Source: patient, RN notes reviewed, old records reviewed Mode of arrival: wheelchair Limitations: no limitations - History of Present Illness Initial comments: Patient is a 54-year-old male with extensive history of pancreatitis and cholecystitis which required cholecystectomy done at [facility]. Pat ient later developed an intra-abdominal abscess. Patient reports that he was discharged from [facility] 3 weeks ago. He reports had some persistent vomiting since then but worsening pain and worsening vomiting over the past 24 hours. Patient states that he's had no fevers or chills. reports he feels weak. He complains of abdominal distension. Hehad frequent diarrhea over the past day. - Related Data Home Medications Medication Instructions Recorded Confirmed Apixaban [Eliquis] 5 mg PO BID 12/14/19 01/29/20 Hydrocodone/Acetaminophen [[place] 1 tab PO TID PRN 12/14/19 01/29/20 5-325] Previous Rx's Medication Instructions Recorded Isradipine 5 mg PO BID #60 cap 10/17/19 Allergies Allergy/AdvReac Type Severity Reaction Status Date / Time amoxicillin Allergy Rash/Hives Verified 01/29/20 10:27 Review of Systems ROS Statement: Those systems with pertinent positive or pertinent negative responses have been documented in the HPI. ROS Other: All systems not noted in ROS Statement are negative. Past Medical History Past Medical History: Deep Vein Thrombosis (DVT), Hearing Disorder / Deafness, Hypertension, Pulmonary Embolus (PE) Additional Past Medical History / Comment(s): HAD A HEART MURMUR WHEN A CHILD- NEVER HEARD ANYTHING AFTER THAT ABOUT IT, SL. HEARLING LOSS YAMILA. EARS. Stents placed in stomach History of Any Multi-Drug Resistant Organisms: None Reported Past Surgical History: Cholecystectomy Additional Past Surgical History / Comment(s): Colonoscopy with benign polypectomy Past Anesthesia/Blood Transfusion Reactions: No Reported Reaction Past Psychological History: No Psychological Hx Reported Smoking Status: Former smoker Past Alcohol Use History: Occasional Past Drug Use History: None Reported - Past Family History Father Family Medical History: Coronary Artery Disease (CAD) Additional Family Medical History / Comment(s): Father had 4 vessel CABG Mother Family Medical History: Hypertension General Exam - General Exam Comments Initial Comments: Patient 4-year-old male. Alert and oriented 3. Limitations: no limitations General appearance: alert, in no apparent distress Head exam: Present: atraumatic, normocephalic, normal inspection Eye exam: Present: normal appearance, PERRL, EOMI. Absent: scleral icterus, conjunctival injection, periorbital swelling ENT exam: Present: normal exam, mucous membranes moist Neck exam: Present: normal inspection. Absent: tenderness, meningismus, lymphadenopathy Respiratory exam: Present: normal lung sounds bilaterally. Absent: respiratory distress, wheezes, rales, rhonchi, stridor Cardiovascular Exam: Present: regular rate, normal rhythm, normal heart sounds. Absent: systolic murmur, diastolic murmur, rubs, gallop, clicks GI/Abdominal exam: Present: soft, distended, tenderness (diffuse ), normal bowel sounds. Absent: guarding, rebound, rigid Extremities exam: Present: normal inspection, full ROM, normal capillary refill. Absent: tenderness, pedal edema, joint swelling, calf tenderness Back exam: Present: normal inspection Neurological exam: Present: alert, oriented X3, CN II-XII intact Psychiatric exam: Present: normal affect, normal mood Skin exam: Present: warm, dry, intact, normal color. Absent: rash Course Vital Signs 01/29/20 01/29/20 09:24 12:07 Temperature 97.8 F Pulse Rate 131 H 93 Respiratory 18 18 Rate Blood Pressure 136/93 141/94 O2 Sat by Pulse 97 98 Oximetry EKG Findings - EKG Comments: EKG Findings:: EKG shows sinus tachycardia. Really consider inferior ischemia. T-wave abnormality considering chills. Abnormal EKG. Ventricular rate of 113 bpm. Verbal is 144 ms. She synagogue is 94 ms. QT QTc is 332/455 ms. Medical Decision Making - Medical Decision Making 54-year-old male with history of cholecystectomy presents emergency department today for concern for abdominal distention frequent vomiting and abdominal pain. Patient is given IV fluids labwork obtained. Laboratories revealed an unr emarkable. Patient's history was obtained from [facility] and they're able to state the Patient had a pancreatic stent placed on 12/13. The second shipping and receiving assistant was not found in the stomach and that time but was noted in left upper quadrant on fluoroscopy. Patient also had been manage out patiently for the right lower quadrant abscess with a anabiotic and drinking. He has finished the antibiotics and reports that he is in no further fevers. Computed tomography scan today shows evidence of bowel obstruction with concern for lower colon stricture. He reports that he was discharged from [facility] he was supposed to take a GoLYTELY prep but he had not done this at this time needed report he had some small amount of diarrhea yesterday. Patient computed tomography scan shows is concern for colonic stricture in the distal colon and a question if this is related to his pancreatic stent causing an obstruction. Patient does feel better after receiving 1 mg of Dilaudid and IV fluids. He states that he preferred to travel to [facility] on his own vehicle. I did discuss the case with Dr. Metz at [facility] who agrees to accept a transfer the Patient will be going to the emergency room for reevaluation and IV establishment. I discussed the Patient should not eat or drink prior to arrival to the emergency department. He will be signing out AGAINST MEDICAL ADVICE as I did initially plan to transfer the Patient via EMS. - Lab Data Result diagrams: 01/29/20 10:19 01/29/20 10:19 Lab Results 01/29/20 01/29/20 01/29/20 Range/Units 10:19 10:19 10:19 WBC 11.9 H (3.8-10.6) k/uL RBC 5.47 (4.30-5.90) m/uL Hgb 15.8 D (13.0-17.5) gm/dL Hct 50.2 (39.0-53.0) % MCV 91.8 (80.0-100.0) fL MCH 28.8 (25.0-35.0) pg MCHC 31.4 (31.0-37.0) g/dL RDW 15.1 (11.5-15.5) % Plt Count 521 H (150-450) k/uL Neutrophils % 90 % Lymphocytes % 7 % Monocytes % 2 % Eosinophils % 0 % Basophils % 0 % Neutrophils # 10.7 H (1.3-7.7) k/uL Lymphocytes # 0.8 L (1.0-4.8) k/uL Monocytes # 0.2 (0-1.0) k/uL Eosinophils # 0.0 (0-0.7) k/uL Basophils # 0.0 (0-0.2) k/uL PT 9.7 (9.0-12.0) sec INR 0.9 (<1.2) APTT 22.1 (22.0-30.0) sec Sodium 138 (137-145) mmol/L Potassium 4.6 (3.5-5.1) mmol/L Chloride 105 (98-107) mmol/L Carbon Dioxide 22 (22-30) mmol/L Anion Gap 11 mmol/L BUN 16 (9-20) mg/dL Creatinine 0.79 (0.66-1.25) mg/dL Est GFR (CKD-EPI)AfAm >90 (>60 ml/min/1.73 sqM) Est GFR (CKD-EPI)NonAf >90 (>60 ml/min/1.73 sqM) Glucose 132 H (74-99) mg/dL Plasma Lactic Acid Rusty (0.7-2.0) mmol/L Calcium 10.4 H (8.4-10.2) mg/dL Total Bilirubin 1.0 (0.2-1.3) mg/dL AST 36 (17-59) U/L ALT 28 (4-49) U/L Alkaline Phosphatase 174 H (38-126) U/L Troponin I (0.000-0.034) ng/mL Total Protein 7.8 (6.3-8.2) g/dL Albumin 4.3 (3.5-5.0) g/dL Amylase 45 (30-110) U/L Lipase 104 (23-300) U/L 01/29/20 01/29/20 Range/Units 10:19 10:19 WBC (3.8-10.6) k/uL RBC (4.30-5.90) m/uL Hgb (13.0-17.5) gm/dL Hct (39.0-53.0) % MCV (80.0-100.0) fL MCH (25.0-35.0) pg MCHC (31.0-37.0) g/dL RDW (11.5-15.5) % Plt Count (150-450) k/uL Neutrophils % % Lymphocytes % % Monocytes % % Eosinophils % % Basophils % % Neutrophils # (1.3-7.7) k/uL Lymphocytes # (1.0-4.8) k/uL Monocytes # (0-1.0) k/uL Eosinophils # (0-0.7) k/uL Basophils # (0-0.2) k/uL PT (9.0-12.0) sec INR (<1.2) APTT (22.0-30.0) sec Sodium (137-145) mmol/L Potassium (3.5-5.1) mmol/L Chloride (98-107) mmol/L Carbon Dioxide (22-30) mmol/L Anion Gap mmol/L BUN (9-20) mg/dL Creatinine (0.66-1.25) mg/dL Est GFR (CKD-EPI)AfAm (>60 ml/min/1.73 sqM) Est GFR (CKD-EPI)NonAf (>60 ml/min/1.73 sqM) Glucose (74-99) mg/dL Plasma Lactic Acid Rusty 1.8 (0.7-2.0) mmol/L Calcium (8.4-10.2) mg/dL Total Bilirubin (0.2-1.3) mg/dL AST (17-59) U/L ALT (4-49) U/L Alkaline Phosphatase (38-126) U/L Troponin I <0.012 (0.000-0.034) ng/mL Total Protein (6.3-8.2) g/dL Albumin (3.5-5.0) g/dL Amylase (30-110) U/L Lipase (23-300) U/L - Radiology Data Radiology results: report reviewed CT shows correlate for colonic stricture and obstruction. Difficult to exclude massiveness; concerned a. Foreign body retrieval. Colitis. Disposition Clinical Impression: Bowel obstruction Disposition: Left Against Medical Advice Condition: Stable Additional Instructions: Go directly to [facility] for evaluation. Do not eat or drink on the way. Is patient prescribed a controlled substance at d/c from ED?: No Referrals: Cj Malloy MD [Primary Care Provider] - 1-2 days Time of Disposition: 12:26
[2020-01-29 10:43] LABS: Basophils % (A) 0 %; Eosinophils % (A) 0 %; HCT 50.2 % (39.0-53.0); Lymphocytes # (A) 0.8 k/uL (1.0-4.8); Lymphocytes % (A) 7 %; MCH 28.8 pg (25.0-35.0); MCHC 31.4 g/dL (31.0-37.0); MCV 91.8 fL (80.0-100.0); Mean Platelet Volume 6.8; Monocytes # (A) 0.2 k/uL (0-1.0); Monocytes % (A) 2 %; Neutrophils # (A) 10.7 k/uL (1.3-7.7); Neutrophils % (A) 90 %; Platelet Count 521 k/uL (150-450); RBC 5.47 m/uL (4.30-5.90); RDW 15.1 % (11.5-15.5); WBC 11.9 k/uL (3.8-10.6)
[2020-01-29 10:46] LABS: HGB 15.8 gm/dL (13.0-17.5)
[2020-01-29 10:55] LABS: ALT 28 U/L (4-49); AST 36 U/L (17-59); African American GFR (CKD) >90 (>60 ml/min/1.73 sqM); Albumin 4.3 g/dL (3.5-5.0); Alkaline Phosphatase 174 U/L (38-126); Amylase 45 U/L (30-110); Anion Gap 11 mmol/L; Blood Urea Nitrogen 16 mg/dL (9-20); Calcium 10.4 mg/dL (8.4-10.2); Carbon Dioxide 22 mmol/L (22-30); Chloride 105 mmol/L (98-107); Glucose 132 mg/dL (74-99); Non-African American GFR(CKD) >90 (>60 ml/min/1.73 sqM); Potassium 4.6 mmol/L (3.5-5.1); Sodium 138 mmol/L (137-145); Total Protein 7.8 g/dL (6.3-8.2)
[2020-01-29 10:57] LABS: INR 0.9 (<1.2); Partial Thromboplastin Time 22.1 sec (22.0-30.0); Prothrombin Time 9.7 sec (9.0-12.0)
--- NOTE | 2020-01-29 11:23 | CT ---
EXAMINATION TYPE: CT abdomen pelvis w con DATE OF EXAM: 01/29/2020 COMPARISON: CT 12/29/2019 HISTORY: Abdominal pain CT DLP: 1039.9 mGycm Automated exposure control for dose reduction was used. TECHNIQUE: Helical acquisition of images from the lung bases through the pelvis have been completed. CONTRAST: Performed without Oral Contrast and with IV Contrast, patient injected with 100 mL of Isovue 300. FINDINGS: The previously identified fluid collection at the level of the left hemidiaphragm has resol [email or web address] LUNG BASES: No significant abnormality is appreciated. AORTA: No significant abnormality is appreciated. LIVER/GB: Pneumobilia is present as on prior. Patient is post cholecystectomy. Surgical suture presen t at the inferior margin of the right lobe as on prior. Low-attenuation within the liver may be due t o hepatic steatosis.. PANCREAS: There is improvement in the dilation of the pancreatic duct, pancreas does appear somewhat atrophic. Small nodes are present at the level of the uncinate process, root of the mesentery. SPLEEN: No significant abnormality is seen. ADRENALS: No significant abnormality is seen. KIDNEYS: No significant abnormality is seen. REPRODUCTIVE ORGANS: No significant abnormality is seen BOWEL: At the level of the descending colon there is a caliber change, marked distention of the smal l and large bowel is noted proximal to this level. Colonic wall thickening in the more distal sigmoid colon could represent some underlying inflammatory change, colitis. The stent previously noted at th e level of the descending colon is no longer seen however it may migrated more proximally within the large bowel, double-J stent is noted at the level of the transverse colon. Suspect some gastroesophag eal varices. FREE AIR: No Free Air visible. ASCITES: Minimal fluid present in the pelvis. PELVIC ADENOPATHY: None visualized. RETROPERITONEAL ADENOPATHY: No Retroperitoneal Adenopathy visible. URINARY BLADDER: No significant abnormality is seen. OSSEOUS STRUCTURES: No significant table change is seen. IMPRESSION: CORRELATE FOR POSSIBLE COLONIC STRICTURE, OBSTRUCTION, DIFFICULT TO EXCLUDE A MASS IN THE DESCENDING COLON CONSIDER ENDOSCOPY AND FOREIGN BODY RETRIEVAL, COLITIS
[2020-01-29 12:08] VITALS: BP 141/94; PULSE 93
[2020-01-29 13:16] VITALS: RESP 20
== END 2020-01-29 12:49 | disposition left against medical advice (07) ==
LOC: EC 09:22
DX: K56.609 Unspecified intestinal obstruction, unspecified as to partial versus complete obstruction (principal); Z79.01 Long term (current) use of anticoagulants; Z88.0 Allergy status to penicillin; Z86.711 Personal history of pulmonary embolism; Z87.891 Personal history of nicotine dependence; Z86.718 Personal history of other venous thrombosis and embolism; Z90.49 Acquired absence of other specified parts of digestive tract; Z53.29 Procedure and treatment not carried out because of patient's decision for other reasons; Z96.89 Presence of other specified functional implants
CPT/HCPCS: 36415; 93005; 80053; 82150; 83605; 83690; 84484; 85025; 85610; 85730; 87040; 74177; 99285; 96374; 96375 ×3; 96361 ×2; J2405; J1885; J1170; C9113; Q9967

== ENCOUNTER 2020-02-13 08:52 | Emergency (ER) | payer BC ==
[2020-02-13 08:57] VITALS: BP 129/86; TEMP 98.2
--- NOTE | 2020-02-13 09:18 | ED ---
General Adult HPI - General Chief complaint: Recheck/Abnormal Lab/Rx Stated complaint: open surgical incision Time Seen by Provider: 02/13/20 08:57 Source: patient, RN notes reviewed Mode of arrival: wheelchair Limitations: no limitations - History of Present Illness Initial comments: 54-year-old male presents to the emergency department for incision leakage. Patient states that this morning he started to have some reddish clear drainage from incision. Patient states he had a colon resection with colostomy placement about 10 days ago at [facility]. States that today when he woke up he had some mild drainage from the area and was unsure of what to do. Patient denies any redness or fevers. Denies purulent drainage. Denies any abdominal pain. States colostomy has been in working order. Patient has no other complaints at this time including shortness of breath, chest pain, abdominal pain, nausea or vomiting, headache, or visual changes. - Related Data Home Medications Medication Instructions Recorded Confirmed Apixaban [Eliquis] 5 mg PO BID 12/14/19 01/29/20 Hydrocodone/Acetaminophen [[place] 1 tab PO TID PRN 12/14/19 01/29/20 5-325] Previous Rx's Medication Instructions Recorded Isradipine 5 mg PO BID #60 cap 10/17/19 Allergies Allergy/AdvReac Type Severity Reaction Status Date / Time amoxicillin Allergy Rash/Hives Verified 02/13/20 08:55 Review of Systems ROS Statement: Those systems with pertinent positive or pertinent negative responses have been documented in the HPI. ROS Other: All systems not noted in ROS Statement are negative. Past Medical History Past Medical History: Deep Vein Thrombosis (DVT), Hearing Disorder / Deafness, Hypertension, Pulmonary Embolus (PE) Additional Past Medical History / Comment(s): HAD A HEART MURMUR WHEN A CHILD- NEVER HEARD ANYTHING AFTER THAT ABOUT IT, SL. HEARLING LOSS YAMILA. EARS. Stents placed in stomach History of Any Multi-Drug Resistant Organisms: None Reported Past Surgical History: Cholecystectomy Additional Past Surgical History / Comment(s): Colonoscopy with benign polypectomy, colostomy initiation Past Anesthesia/Blood Transfusion Reactions: No Reported Reaction Past Psychological History: No Psychological Hx Reported Smoking Status: Former smoker Past Alcohol Use History: Occasional Past Drug Use History: None Reported - Past Family History Father Family Medical History: Coronary Artery Disease (CAD) Additional Family Medical History / Comment(s): Father had 4 vessel CABG Mother Family Medical History: Hypertension General Exam Limitations: no limitations General appearance: alert, in no apparent distress Head exam: Present: atraumatic, normocephalic, normal inspection Eye exam: Present: normal appearance, PERRL, EOMI. Absent: scleral icterus, conjunctival injection, periorbital swelling ENT exam: Present: normal exam, mucous membranes moist Neck exam: Present: normal inspection, full ROM. Absent: tenderness, meningismus, lymphadenopathy Respiratory exam: Present: normal lung sounds bilaterally. Absent: respiratory distress, wheezes, rales, rhonchi, stridor Cardiovascular Exam: Present: regular rate, normal rhythm, normal heart sounds. Absent: systolic murmur, diastolic murmur, rubs, gallop, clicks GI/Abdominal exam: Present: soft, normal bowel sounds, other (Patient has brad noted along the midline under the umbilicus. There is a very small area of dehiscence with minimal serosanguineous drainage. No significant erythema. No purulent drainage. No tenderness around the area.). Absent: distended, tenderness, guarding, rebound, rigid Course Vital Signs 02/13/20 08:55 Temperature 98.2 F Pulse Rate 111 H Respiratory 16 Rate Blood Pressure 129/86 O2 Sat by Pulse 97 Oximetry Medical Decision Making - Medical Decision Making Heart rate minimally elevated likely secondary to anxiety as patient states he has had nonstop problems since July and is concerned about this leakage. Patient has a very small area of serosanguineous drainage from a pinpoint area of wound dehiscence along incision line. Incision is intact. It is nontender. There is no significant erythema or purulent drainage. No signs of infection. Area was cleaned and Steri-Strips were applied. Patient has an appointment with his primary care provider in one hour that he will attend. He will return here for any worsening symptoms. Disposition Clinical Impression: Wound dehiscence Disposition: HOME SELF-CARE Condition: Good Instructions (If sedation given, give patient instructions): Wound Dehiscence (ED) Additional Instructions: Please attend your appointment with Dr. Malloy this morning. Please keep the area clean. Monitor for signs of infection such as spreading redness or fever or purulent drainage. Return to the emergency room for any worsening symptoms. Is patient prescribed a controlled substance at d/c from ED?: No Referrals: Cj Malloy MD [Primary Care Provider] - 1-2 days Time of Disposition: 09:17
[2020-02-13 09:28] VITALS: PULSE 104; RESP 18
== END 2020-02-13 09:30 | disposition home or self-care (01) ==
LOC: EC 08:52
DX: T81.30XA Disruption of wound, unspecified, initial encounter (principal); Z79.01 Long term (current) use of anticoagulants; Z87.891 Personal history of nicotine dependence; Z86.718 Personal history of other venous thrombosis and embolism; Z86.711 Personal history of pulmonary embolism; Z90.49 Acquired absence of other specified parts of digestive tract; Z93.3 Colostomy status; Z88.0 Allergy status to penicillin
CPT/HCPCS: 99282